=== PATIENT | male | born 1950 | race Caucasian/White ===

== ENCOUNTER → 2016-08-31 | Outpatient (CLI) | payer OTHER ==
[~2016-08-31] MED LIST: ASPI325T45 PO; CYCL10TA6 PO; IPRA1AER2 INH; LEVO112T2 PO; MBXC PO; MULT-506 PO; OXYC1CAP5 PO; OXYC20TA32 PO; OXYC20TA50 PO; PRLSR20 PO; QUET1TAB32 PO; SERT-234 PO; VNTHFA/IN INH; WHEATAB2 PO; ZNTT/150 PO; ZOLP10TA PO
--- NOTE | 2016-08-31 10:25 | DIAGNOSTIC IMAGING REPORT ---
CHEST 2 VIEWS ROUTINE CLINICAL HISTORY: Pulmonary nodule. Right upper lobectomy on June 25, 2016. COMPARISON STUDY: PET/CT June 08, 2016 and chest radiograph July 14, 2016. FINDINGS: An anterior cervical spine fusion is partially imaged. Cardiac size is normal. Mediastinal contours are normal. There are postsurgical findings within the right hemithorax. No pneumothorax is present. There may be a small right pleural effusion. There is no evidence of pulmonary edema. Mild bibasilar opacities favor atelectasis. A density overlying the right midlung and a rib is likely due to summation artifact. IMPRESSION: 1. No pneumothorax. 2. Possible trace right pleural effusion. Electronically signed by: Anthony Scales M.D. 08/31/2016 10:23 AM Dictated Date/Time: 08/31/2016 10:20 AM
== END | disposition home or self-care (01) ==
LOC: C.RAD1850 09:40
PROVIDERS: ATTEND Surgery
DX: R91.1 Solitary pulmonary nodule (principal)

== ENCOUNTER → 2016-11-02 | Outpatient (CLI) | payer OTHER ==
[~2016-11-02] MED LIST changes: +MIRT15TA53 PO
--- NOTE | 2016-11-02 13:01 | DIAGNOSTIC IMAGING REPORT ---
PET/CT SKULL-THIGH CLINICAL HISTORY: Head and neck cancer COMPARISON STUDY: PET/CT dated 06/08/2016 FINDINGS: The patient was injected with 12.6 mCi of F 18 labeled FDG. Findings standard induction phase, PET/CT scanning is performed from the skull base the upper thigh region. Activity within the neck is felt to be physiologic. There are postsurgical changes of a right upper lobectomy. There is a mildly FDG avid right hilar lymph node with SUV maximum of 3.7. There is a mildly FDG avid 7 mm right upper lobe opacity with SUV maximum of 2.1. The previously identified FDG avid right upper lobe pulmonary nodule is no longer visualized. There are nonspecific subcentimeter lingular nodules which are minimally FDG avid with SUV maximum measuring up to 1.8. There is an 8 mm right lower lobe pulmonary nodule with mild increased FDG activity with SUV maximum of 3.2. A small right pleural effusion. Within the abdomen, there is no FDG avid hepatic or adrenal lesions. There is no FDG avid adenopathy. There is physiologic urinary tract and bowel activity. There are scattered areas of muscular activity. There are no areas of bony activity to indicate skeletal metastasis. IMPRESSION: 1. Interval resection of the right upper lobe pulmonary mass 2. Small right pleural effusion 3. Mildly FDG avid right hilar lymph node 4. Scattered mildly FDG avid bilateral pulmonary nodules. Short-term follow-up study is recommended to differentiate an inflammatory from neoplastic etiology Electronically signed by: Gentry Tsang M.D. 11/02/2016 1:00 PM Dictated Date/Time: 11/02/2016 12:48 PM
== END | disposition home or self-care (01) ==
LOC: C.PET 08:34
PROVIDERS: ATTEND Family Medicine
DX: C76.0 Malignant neoplasm of head, face and neck (principal); R91.8 Other nonspecific abnormal finding of lung field; J90 Pleural effusion, not elsewhere classified

== ENCOUNTER → 2016-12-28 | Outpatient (CLI) | payer OTHER ==
[~2016-12-28] MED LIST changes: +AZIT-57 PO; +CEFU1TAB36 PO; +LEVA1.258 INH; +LEVO125T5 PO; +NAPR1TAB9 PO; +NEBMAC; +NRN100 PO; +OPTIRAY 320 IV PRN; +PRED10TA PO
--- NOTE | 2016-12-28 08:17 | DIAGNOSTIC IMAGING REPORT ---
CT SCAN OF THE NECK WITH IV CONTRAST CLINICAL HISTORY: Lung cancer. History of laryngeal cancer. COMPARISON STUDY: CT scan of the neck dated 11/14/2009. PET CT dated 11/02/2016. TECHNIQUE: Following the IV administration of 91 cc of Optiray 320, CT scan of the soft tissues of the neck was performed from the skull base to the upper chest. Images are reviewed in the axial, sagittal, and coronal planes. IV contrast was administered without complication. CT DOSE: 745.43 mGy.cm FINDINGS: Pharynx: The nasopharynx, oropharynx, and laryngeal pharynx are normal in appearance. The pharyngeal airway is widely patent. There is no evidence of mass lesion. The vocal cords appear symmetric. The parapharyngeal fat is well maintained. The prevertebral/retropharyngeal soft tissues are within normal limits. The epiglottis is normal. Lymphadenopathy: No cervical lymphadenopathy is seen Thyroid: Mildly atrophic and grossly unremarkable. Salivary glands: The parotid and submandibular glands are within normal limits. Brain parenchyma: The visualized brain parenchyma at the skull base is normal in appearance. Vascular structures: There is approximately 50% stenosis of the proximal right internal carotid artery secondary to calcified and soft plaque. The carotid arteries are otherwise patent bilaterally. The jugular veins are clear. Skeletal structures: The skeletal structures are osteopenic. No lytic or blastic lesions are identified. Imaged portions of the calvarium at the skull base appear intact. There is moderate to advanced multilevel cervical spondylosis with evidence of corpectomy at C4 an anterior fusion from C3-C7. Sinuses and mastoids: There is moderate mucosal thickening within the left anterior ethmoid and left frontal sinuses. The remaining paranasal sinuses are clear. The mastoid air cells are well pneumatized. Orbits: The bony orbits are intact. Orbital contents are normal in appearance. Lung apices: Advanced emphysema is present at the lung apices. Scarring is noted at the right apex. IMPRESSION: 1. There is no evidence of recurrent or metastatic disease in the neck. 2. Advanced emphysema. 3. There is approximately 50% stenosis in the proximal right internal carotid artery. Electronically signed by: Alex Taylor M.D. 12/28/2016 8:16 AM Dictated Date/Time: 12/28/2016 8:03 AM
--- NOTE | 2016-12-28 08:25 | DIAGNOSTIC IMAGING REPORT ---
CT OF THE CHEST WITH IV CONTRAST CLINICAL HISTORY: Lung cancer. Head and neck cancer. COMPARISON STUDY: PET/CT November 02, [address] June 01, 2016 per TECHNIQUE: Following IV administration of 91 mL of Optiray-320, helical axial images of the chest were obtained. Images were viewed in the axial, sagittal and coronal planes. IV contrast was administered without complication. FINDINGS: The neck CT will be reported separately. This exam is compromised by respiratory motion artifact. The size of the heart is at the upper limits of normal. There are postsurgical findings consistent with a right upper lobectomy. A prominent high right paratracheal lymph node shown on image 72 of 341 is unchanged since PET/CT of November 02, 2016. This measures 1 x 0.8 cm. A small right pleural effusion is unchanged since prior PET/CT. There are multiple ill-defined pulmonary nodule throughout the lungs. Overall, there has been improvement since exam of November 02, 2016 but several airspace opacities have developed including nodular right lower lobe airspace opacity. A 1.2 cm left lower lobe nodule shown on image 206 of 341 is unchanged. This is suboptimally assessed due to respiratory motion. There is no pneumothorax. No suspicious osseous lesions are present. The upper abdomen is unremarkable. IMPRESSION: 1. Scattered bilateral pulmonary nodules. Overall, improvement since exam of November 02, 2016 has a few new small airspace opacities. The lungs are suboptimally assessed due to respiratory motion but favor an infectious/inflammatory process. A neoplastic etiology is considered less likely but a follow-up chest CT in 2 months is recommended. 2. No change in a trace right pleural effusion. 3. Stable prominent right paratracheal lymph node which can be assessed on subsequent exams. 4. No change in the indeterminate 1.2 cm left lower lobe nodule. Electronically signed by: Anthony Scales M.D. 12/28/2016 8:24 AM Dictated Date/Time: 12/28/2016 7:40 AM
== END | disposition home or self-care (01) ==
LOC: C.CTS 06:43
PROVIDERS: ATTEND Internal Medicine Hematology & Oncology
DX: C34.90 Malignant neoplasm of unspecified part of unspecified bronchus or lung (principal); J43.9 Emphysema, unspecified; I65.21 Occlusion and stenosis of right carotid artery; C32.9 Malignant neoplasm of larynx, unspecified; R91.1 Solitary pulmonary nodule

== ENCOUNTER 2017-02-24 05:12 | Day surgery (SDC) | payer OTHER ==
[2017-02-19 08:13] VITALS: BMI 25.0
--- NOTE | 2017-02-19 09:01 | PAT Medication Instructions ---
Service Date Feb 19, 2017. Current Home Medication List Aspirin (Aspirin), 650 MG PO QAM Cyclobenzaprine Hcl (Flexeril), 10-20 MG PO TID PRN for Muscle Spasm Ipratropium-Albuterol (Combivent Respimat), 1 PUFFS INH QID Levothyroxine Sodium (Synthroid), 125 MCG PO QAM Multivitamin (Multivitamin), 1 TAB PO QAM Omeprazole (Prilosec), 20 MG PO QDD Oxycodone Hcl (Oxycodone Hcl), 10 MG PO Q8 PRN for PRN Oxycodone Hcl (Oxycontin), 2 TAB PO TID Ranitidine (Zantac), 150 MG PO BID Sertraline (Zoloft), 100 MG PO BID Wheat Dextrin (Benefiber), 1 TSP PO BID PRN for Constipation Zolpidem Tartrate (Ambien), 10 MG PO HS Medication Instructions For Your Scheduled Surgery - Check with surgeon for instructions: Aspirin (Aspirin), 650 MG PO QAM - Hold the following medications the morning of surgery: Wheat Dextrin (Benefiber), 1 TSP PO BID PRN for Constipation Ranitidine (Zantac), 150 MG PO BID Multivitamin (Multivitamin), 1 TAB PO QAM Cyclobenzaprine Hcl (Flexeril), 10-20 MG PO TID PRN for Muscle Spasm - Take the following medications the morning of surgery with a sip of water: Sertraline (Zoloft), 100 MG PO BID Oxycodone Hcl (Oxycodone Hcl), 10 MG PO Q8 PRN for PRN (okay to take up to 4 hours prior to surgery if needed) Oxycodone Hcl (Oxycontin), 2 TAB PO TID (okay to take up to 4 hours prior to surgery if needed) Omeprazole (Prilosec), 20 MG PO QDD Ipratropium-Albuterol (Combivent Respimat), 1 PUFFS INH QID Levothyroxine Sodium (Synthroid), 125 MCG PO QAM - Take the following medications as scheduled the night before surgery: Zolpidem Tartrate (Ambien), 10 MG PO HS Wheat Dextrin (Benefiber), 1 TSP PO BID PRN for Constipation (if needed) Ranitidine (Zantac), 150 MG PO BID Oxycodone Hcl (Oxycodone Hcl), 10 MG PO Q8 PRN for PRN (if needed) Oxycodone Hcl (Oxycontin), 2 TAB PO TID Ipratropium-Albuterol (Combivent Respimat), 1 PUFFS INH QID Cyclobenzaprine Hcl (Flexeril), 10-20 MG PO TID PRN for Muscle Spasm (if needed ) If you have any questions please call us at [phone] or [phone] or [phone]
[2017-02-19 09:59] LABS: BASO % 0.9 %; BASO ABS # 0.05 K/uL (0-0.2); COMPLETE YES; EOS % 4.7 %; HEMATOCRIT 40.4 % (42-52); IG% 0.2 %; LYMPH % 25.8 %; LYMPH ABS # 1.37 K/uL (1.2-3.4); MEAN CELL VOLUME 82.8 fL (80-100); MEAN CORPUSCULAR HEMOGLOBIN 27.3 pg (25-34); MEAN CORPUSCULAR HGB CONC 32.9 g/dl (32-36); MEAN PLATELET VOLUME 8.9 fL (7.4-10.4); MONO % 8.5 %; NEUT % 59.9 %; PLATELET COUNT 252 K/uL (130-400); RED BLOOD COUNT 4.88 M/uL (4.7-6.1); WHITE BLOOD COUNT 5.32 K/uL (4.8-10.8)
[2017-02-19 11:03] LABS: BUN/CREATININE RATIO 15.4 (10-20); CALCIUM 9.3 mg/dl (8.5-10.1); CREATININE 0.74 mg/dl (0.60-1.40); POTASSIUM 4.2 mmol/L (3.5-5.1)
[~2017-02-24] VITALS: Ht 180.3 cm; Wt 83.7 kg
[~2017-02-24 05:12] MED LIST changes: -AZIT-57 PO; -CEFU1TAB36 PO; -LEVA1.258 INH; -LEVO125T5 PO; -MBXC PO; -MIRT15TA53 PO; -NAPR1TAB9 PO; -NEBMAC; -NRN100 PO; -OPTIRAY 320 IV PRN; -OXYC20TA32 PO; -PRED10TA PO; -QUET1TAB32 PO; -VNTHFA/IN INH
[2017-02-24 05:42] VITALS: BP 176/81; PULSE 105; TEMP 36.7; O2SAT 93; Ht 180.3 cm; Wt 83.7 kg
[2017-02-24] MEDS ORDERED: SUCCINYLCHOLINE 100MG/5ML SYR IV ONE (06:24)
[2017-02-24] MEDS ORDERED: LARYING-O-JET KIT (LTA) ONE ×2 (06:24)
[2017-02-24] MEDS ORDERED: ONDANSETRON INJ 2 MG/ML 2 ML VIAL ONE (06:24)
[2017-02-24] MEDS ORDERED: FENTANYL CITRATE INJ 50 MCG/1 ML 2 ML VIAL ONE (06:24)
[2017-02-24] MEDS ORDERED: LIDOCAINE HCL 2% 2 ML VIAL (20MG/ML) ONE (06:24)
[2017-02-24] MEDS ORDERED: ROCURONIUM BROMIDE 10 MG/ML 5 ML VIAL ONE (06:24)
[2017-02-24] MEDS ORDERED: DEXAMETHASONE SOD INJ 4 MG/ML VIAL ONE (06:24)
[2017-02-24] MEDS ORDERED: MIDAZOLAM HCL 1 MG/ML 2ML VIAL ONE (06:24)
[2017-02-24] MEDS ORDERED: PROPOFOL IV EMULSION 10 MG/ML 20 ML VIAL IV ONE (06:24)
--- NOTE | 2017-02-24 06:36 | History and Physical ---
History & Physical Date Feb 24, 2017. 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 Past Medical/Surgical History Medical Problems: (1) Cancer of supraglottis (2) Cervical stenosis of spinal canal (3) Chronic back pain (4) CORONARY ATHEROSCLEROSIS OF [place] CORONARY VESSEL (5) DEPRESSIVE DISORDER NEC (6) FAMILY HISTORY OF OTHER CARDIOVASCULAR DISEASES (7) FAMILY HX-MALIGNANCY NOS (8) Fever (9) HYPERTENSION NOS (10) Lung nodule (11) MALIG ANKIT SUPRAGLOTTIS (12) TOBACCO USE DISORDER PSH: S/P DL W/ BX, S/P ACDF, S/P BRONCH W/ BX Additional History Hepatic Disease: No Endocrine Disorder: No Kidney Disease: No Hypertension: No Heart Disease: No Bleeding Tendencies: No Infectious Diseases: No Allergies Coded Allergies: NSAIDs (Verified Adverse Reaction, Unknown, upset stomach, 02/24/17) Home Medications Scheduled Aspirin (Aspirin), 650 MG PO QAM Ipratropium-Albuterol (Combivent Respimat), 1 PUFFS INH QID Levothyroxine Sodium (Synthroid), 125 MCG PO QAM Multivitamin (Multivitamin), 1 TAB PO QAM Omeprazole (Prilosec), 20 MG PO DAILY Oxycodone Hcl (Oxycontin), 2 TAB PO TID Ranitidine (Zantac), 150 MG PO BID Sertraline (Zoloft), 100 MG PO BID Zolpidem Tartrate (Ambien), 10 MG PO HS Scheduled PRN Cyclobenzaprine Hcl (Flexeril), 10-20 MG PO TID PRN for Muscle Spasm Oxycodone Hcl (Oxycodone Hcl), 10 MG PO Q8 PRN for PRN Wheat Dextrin (Benefiber), 1 TSP PO BID PRN for Constipation Physical Examination Skin: warm/dry, no rash Eyes: normal inspection, EOMI, sclerae normal ENT: + pertinent finding (MILD HOARSENESS; SUBTLE FULLNESS OF R ARYTENOID AND A -E FOLD WITH DECREASED R TVF MOBILITY) Head: normocephalic, atraumatic Neck: + pertinent finding (POST-XRT FIBROTIC CHANGES; NO PAVITHRA) Respiratory/Chest: lungs clear, normal breath sounds, no respiratory distress Cardiovascular: regular rate, rhythm, no edema, no murmur Neurologic/Psych: no motor/sensory deficits, alert, normal reflexes, oriented x 3 Diagnosis H/O T2N2M0 SCC R SUPRAGLOTTIC LARYNX WITH INCREASING R-SIDED SORE THROAT AND ABNORMAL PET/CT SCAN Plan of Treatment DML W/ BX
[2017-02-24] MEDS ORDERED: EpINEphrine HCL INJ 1 MG/ML 5ML SYRINGE ONE (07:30)
[2017-02-24] MEDS ORDERED: EpINEphrine INJ 1MG/ML AMP 1 MG/ML AMP ONE (07:34)
--- NOTE | 2017-02-24 07:39 | Discharge Instructions ---
Discharge Instructions Date of Service Feb 24, 2017. Admission Reason for Admission: Malignant Neplasm of Supraglottis Discharge Discharge Diagnosis / Problem: same Discharge Goals Goal(s): Diagnostic testing, Therapeutic intervention Activity Recommendations Activity Limitations: as noted below NO DRIVING WHILE ON [place]; LIGHT ACTIVITY FOR 1-2 DAYS . Current Hospital Diet Patient's current hospital diet: Discharge Diet Recommended Diet: Regular Diet Pending Studies Studies pending at discharge: no Medical Emergencies . Who to Call and When: Medical Emergencies: If at any time you feel your situation is an emergency, please call 911 immediately. . Non-Emergent Contact Non-Emergency issues call your: Surgeon . . "Provider Documentation" section prepared by Obed Sequeira. . VTE Core Measure Inpt VTE Proph given/why not?: SCD's
[2017-02-24] MEDS ORDERED: HYDROCODONE/ACETAMOPHEN 5/325MG TAB PO PRN (07:45)
--- NOTE | 2017-02-24 08:01 | [facility] Operative Report ---
Operative Report Operative Date Feb 24, 2017. Pre-Operative Diagnosis History of malignant neoplasm of supraglottis Post-Operative Diagnosis History of malignant neoplasm of supraglottis Procedure(s) Performed Direct Microlaryngoscopy with Biopsy Surgeon Dr. Obed Sequeira Hose Operator Surgeon(s) Diane Gordillo PA-C Estimated Blood Loss 5ml Findings Edematous right arytenoid, right aryepiglottic fold, and postcricoid mucosa without definitive mass or lesion Specimens A. Post Cricoid Mucosa B. Right Arytenoid Mucosa C. Right Aryepiglottic Mucosa Anesthesia Gen. endotracheal Complication(s) None Indications The patient is a 66-year-old male with a history of T2 N2 M0 squamous cell carcinoma of the right supraglottic larynx status post primary chemotherapy and radiation therapy completed in 2009 who recently was diagnosed with lung cancer and has had progressive increased FDG activity on PET/CT scans involving the right supraglottis and postcricoid region. In addition he has symptoms of increasing right-sided sore throat, mild dysphagia, intermittent hoarseness, and intermittent hemoptysis. Serial laryngoscopies showed some subtle changes in that he has increased edema of the right arytenoid, aryepiglottic fold, and postcricoid mucosa with decreased mobility of his right true vocal fold compared to previous examinations without definitive mass or lesion. It was recommended that he undergo direct microlaryngoscopy with biopsies and this was originally scheduled on January 27. However, the patient the procedure due to undergoing radiation for his lung cancer and now this is rescheduled urgently upon the request of his medical oncologist due to his progressive symptomatology. Description of Procedure After informed consent had been obtained from the patient, the patient was wheeled to the operating room and placed on the operating table in the supine position. Monitors were placed and after the induction of general endotracheal anesthesia, the table was turned 90 and the patient was placed in the sniffing position. A moistened Ray-Colleen sponge was placed over the edentulous maxillary alveolus and the operating microscope was inserted and used to inspect the oral cavity, oropharynx, hypopharynx, and larynx. The intraoperative findings were of edema of the right arytenoid, right aryepiglottic fold, and postcricoid mucosa. Cup forceps were used to perform biopsies of all these areas and these were sent off for permanent pathological assessment. These areas were suctioned. There were no other concerning places including the right piriform sinus, upper esophageal mucosa, or adjacent sites. An orogastric tube was placed and the stomach was suctioned free of air and stomach contents. This marked the end of the case. The patient tolerated the procedure well there no complications. All the instrumentation and Ray-Colleen sponge were removed from the patient. The patient was extubated and transferred to the recovery room in stable condition. I attest to the content of the Intraoperative Record and any orders documented therein. Any exceptions are noted below.
[2017-02-24] MEDS ORDERED: FENTANYL CITRATE INJ 50 MCG/1 ML 2 ML VIAL IV PRN (08:15)
[2017-02-24] MEDS ORDERED: ONDANSETRON INJ 2 MG/ML 2 ML VIAL IV PRN (08:15)
[2017-02-24] MEDS ORDERED: EpHEDrine SULFATE INJ 50 MG/ML AMP IV PRN (08:15)
[2017-02-24] MEDS ORDERED: PROMETHAZINE HCL INJ 6.25 MG in SODIUM CHLORIDE 0.9% 50ML 50 ML IV PRN (08:15)
[2017-02-24] MEDS ORDERED: ATROPINE SULFATE 0.1 MG/ML 5ML SYR IV PRN (08:15)
--- NOTE | 2017-02-24 08:40 | Anesthesiology Progress Note ---
Anesthesia Post Op Note Date & Time Feb 24, 2017 at 08:40 Vital Signs Pain Intensity: 0 Vital Signs Past 12 Hours Date Time Temp Pulse Resp B/P (MAP) Pulse Ox O2 Delivery O2 Flow Rate FiO2 02/24/17 08:35 92 18 133/83 94 Room Air 02/24/17 08:25 36.6 92 22 146/88 93 Room Air 02/24/17 08:15 92 24 140/95 94 Room Air 02/24/17 08:05 93 14 147/97 100 Oxymask 6 02/24/17 07:55 95 12 166/108 100 Oxymask 10 02/24/17 07:47 36.0 94 18 161/90 100 Oxymask 10 02/24/17 05:42 36.7 105 20 176/81 (112) 93 Room Air Notes Mental Status: alert / awake / arousable, participated in evaluation Pt Amnestic to Procedure: Yes Nausea / Vomiting: adequately controlled Pain: adequately controlled Airway Patency, RR, SpO2: stable & adequate BP & HR: stable & adequate Hydration State: stable & adequate Anesthetic Complications: no major complications apparent
[2017-02-24 08:45] VITALS: BP 157/77; PULSE 89; TEMP 36.7; O2SAT 92
[2017-02-24 09:15] VITALS: BP 147/87; PULSE 93; O2SAT 93
[2017-02-24 09:45] VITALS: BP 160/90; PULSE 95; TEMP 36.6; O2SAT 92
[2017-02-25] MEDS ORDERED: LACTATED RINGER'S 1000ML 1,000 ML IV SCH (06:00)
[2017-05-13] MEDS ORDERED: MIRT15TA53 PO (15:39)
== END 2017-02-24 09:50 | disposition home or self-care (01) ==
LOC: C.ACU 05:12
DX: J02.9 Acute pharyngitis, unspecified (principal); C34.90 Malignant neoplasm of unspecified part of unspecified bronchus or lung; Z85.00 Personal history of malignant neoplasm of unspecified digestive organ; I25.10 Atherosclerotic heart disease of native coronary artery without angina pectoris; F32.9 Major depressive disorder, single episode, unspecified; Z82.49 Family history of ischemic heart disease and other diseases of the circulatory system; I10 Essential (primary) hypertension; F17.200 Nicotine dependence, unspecified, uncomplicated; E03.9 Hypothyroidism, unspecified; M06.9 Rheumatoid arthritis, unspecified; K21.9 Gastro-esophageal reflux disease without esophagitis; J44.9 Chronic obstructive pulmonary disease, unspecified; M19.90 Unspecified osteoarthritis, unspecified site; F41.9 Anxiety disorder, unspecified; Z90.89 Acquired absence of other organs; Z92.21 Personal history of antineoplastic chemotherapy; Z92.3 Personal history of irradiation

== ENCOUNTER → 2017-03-17 | Outpatient (CLI) | payer OTHER ==
[~2017-03-17] MED LIST changes: +MIRT15TA53 PO
[2017-03-17 13:27] VITALS: BP 156/81; PULSE 100; TEMP 36.8; O2SAT 90
--- NOTE | 2017-03-17 16:59 | Radiation Oncology Follow-Up ---
Radiation Oncology Follow-Up Date of Visit Mar 17, 2017. 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 Radiation completed 02/28/2010 received 7200 cGy Finding of asymmetry of larynx on the right. Plan for laryngoscopy and biopsy Status post laryngoscopy and biopsy 02/24/2017, benign Last Edited By: Sirisha You on Mar 17, 2017 16:52 (2) Lung cancer Status: Acute Stage: l Permanent Comment: Status post bronchoscopy and biopsy 06/03/2016 right upper lobectomy and lymph node dissection 06/25/2016 Squamous cell carcinoma Stage pT1b pN0M0 Development of a left lower lobe pulmonary nodule Status post bronchoscopy and biopsy pathology nondiagnostic 06/25/2016 Status post SBRT completed 02/05/2017. 5 fractions were given for a total of 5000 cGy. Last Edited By: Sirisha You on Feb 18, 2017 10:09 History of Present Illness Mr. Boss is a 66-year-old male who is well known to us. He was initially seen by me in referral on 12/26/2009. At that time he was a 59-year-old male with a long history of cigarette smoking and alcohol use. He had smoked 2 packs a day for most of his adult life. The noted at that time right-sided sore throat an otalgia that it been present since August. It was treated with antibiotics without improvement. He was seen by ENT and examination revealed a lesion on the right false cord. A direct laryngoscopy and biopsy confirmed an endophytic tumor involving the right false vocal cord which approach the anterior commissure. The inferior edge of the tumor seemed to be extending to the ventricle and posteriorly the tumor extended towards the vocal process of the arytenoid. There was no involvement of the piriform sinus. Biopsy confirmed squamous cell carcinoma moderately differentiated. Accession #[id number]. A staging workup with CT scan of the soft tissue of the neck and PET scan showed hypermetabolic activity along the anterior aspect of the right vocal cord extending into the right super glottic region. There was a borderline enlarged mildly FDG avid lymph node in the adjacent right neck. 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 Patient was treated with PEG tube for prophylactic feeding. Patient ultimately was treated with definitive combined chemoradiation. The radiation consisted of IMRT and started on 01/13/2010 and completed on 2009. He received a total of 34 fractions and a total dose of 72 Gy. The patient had the expected sequelae with initial loss of taste swallowing changes and decreased saliva. Ultimately and gradually his taste returned to normal. His dry mouth improved as did his swallowing. The patient has been followed and has not shown evidence of recurrence. A restaging PET/CT scan from 2013 showed asymmetric metabolic uptake at the level of the larynx consistent with his history of treatment. There were no pathologic lymph nodes in the neck or chest and no evidence of recurrence. In December 2015 the patient noted the onset of some weakness of the left arm. He was evaluated by Dr. Clay and was found to have cervical spondylolysis. On Dr. Clay performed an anterior corpectomy and ACDF. The patient tolerated the procedure well. Ultimately the left arm movement and strength returned to normal. However patient developed some low right neck discomfort which was at the site of the surgical procedure. He again developed some difficulty swallowing which over time has resolved. He did have episodes of hemoptysis and increasing hoarseness. These have also improved over time. A CT angiogram was performed on 01/10/2016. No emboli were identified. However there was an indeterminate 1.4 cm right upper lobe pulmonary nodule. 81.0 x 0.3 cm tubular opacity was noted in the right upper lobe and a 6 mm left lower lobe pulmonary nodule was appreciated. Following guidelines for pulmonary nodules a CT of the chest was performed on 04/20/[address] without contrast was performed in anticipation of a navigational bronchoscopy on 06/01/2016. This showed an increase in the size of a lobulated spiculated mass within the right upper lobe presently measuring 3.2 x 2.0 cm. This is felt to be consistent with a primary bronchogenic malignancy. A stable 1.2 cm left lower lobe nodule abutting the major fissure was appreciated. Despite the fact that this remains stable in size a secondary bronchogenic malignancy remained the diagnosis of exclusion. A 3 mm nodule was seen in the lingula too small to characterize. Dr. Hayes performed a navigational bronchoscopy with biopsy of the left lower lobe and right upper lobe masses using the super dimensional electromagnetic navigational bronchoscopy system on 06/03/2016. Bronchial brushings of the left lower lobe showed no malignant cells. Case: [id number]. Bronchial brushings from the right upper lobe were positive for malignant cells consistent with non-small cell carcinoma. Case: [id number]. Transbronchial aspirate of the right upper lobe was positive for malignant cells consistent with a non-small cell carcinoma. Case: [id number]. Right upper lobe bronchial washings were negative. On 06/25/2016 the patient underwent navigational bronchoscopy with biopsy of the left lower lobe mass followed by a thoracoscopic right upper lobectomy and mediastinal lymphadenectomy. The left lower lobe biopsy was benign. The right upper lumpectomy confirmed a poorly differentiated carcinoma with squamous differentiation and apparent focal glandular (adenocarcinoma) differentiation. This was a poorly differentiated grade 3 of 4. There was no visceral pleural invasion identified and the margins were negative. The lesion measured 2.5 cm with the closest margin the bronchial/vascular/parenchymal at 5.5 cm. No lymphovascular invasion was seen. 12 mediastinal nodes worse sampled and all 12 were negative. The final pathologic stage was a pT1b pN0. Case: [id number]. The left lower lobe transbronchial biopsy was positive for malignant cells consistent with a non-small cell carcinoma. Case: [id number]. With these findings no adjuvant therapy was required. At this time patient continued to be followed by Dr. Chano Saldana, Dr. Pritesh Hayes and Dr. Obed Gaytan. On 11/02/2016 patient underwent a repeat PET/ CT scan. The activity in the neck was felt to be physiologic. There were postsurgical changes in the right upper lobectomy. There was mildly FDG avid right hilar lymph node with SUV max of 3.7 and a mildly FDG avid 7 mm right upper lobe opacity with an SUV max of 2.1. The previously identified FDG avid right upper lobe pulmonary nodule was no longer visualized. There was nonspecific subcentimeter lingular nodules which are minimally FDG avid with SUV max measuring up to 1.8. There was an 8 mm right lower lobe pulmonary nodule with mild increased FDG activity and an SUV max of 3.2. A CT scan of the chest on 12/28/2016 with IV contrast was performed. This again showed postsurgical findings of a right upper lobectomy. A prominent high right paratracheal lymph node was unchanged since PET/CT of 11/02/2016 measuring 1.0 x 0.8 cm. A small right pleural effusion was also unchanged. Multiple ill- defined pulmonary nodules are seen throughout the lungs. Overall there had been improvement compared to the study of 11/02/2016. A 1.2 cm left lower lobe nodule also seen previously was unchanged. A CT of the soft tissue of the neck was also performed on this date. The nasopharynx, oropharynx and laryngeal parents are normal in appearance. The pharyngeal airway was widely patent. There was no evidence of mass lesion identified. There was no cervical lymphadenopathy seen. There was a proximate 50% stenosis of the proximal right internal carotid artery secondary to calcified and soft plaque. The carotid arteries are otherwise patent bilaterally. There was no lytic or blastic lesions identified. There was evidence of the corpectomy at C4 an anterior fusion from C3 to C7. Continued follow-up and examination by Dr. Obed Sequeira revealed some subtle changes on his laryngoscopic examination which showed more fullness in the right arytenoid and area epiglottic fold region. Also noted was decreased mobility of his right true vocal cord compared with previous examinations. The patient is also complaining of some persistent but intermittent right neck discomfort and persistent hoarseness. It is unclear whether these changes were related to his recent ACDF surgery but it is felt that it would be important to rule out recurrent malignancy although this is felt to be less likely. The patient is scheduled for an endoscopic evaluation and biopsy on 01/27/2017. We were asked to see this patient by Dr. Saldana to evaluate the potential for stereotactic treatment of the left lower lobe nodule. Stereotactic treatment was given and was completed 02/05/2017. He received 5 fractions for a total of 5000 cGy. Interim History He is been doing well over this past month. He denies any change in respiratory status. He did not develop any irritation of the skin of the anterior posterior chest. He had no difficulty with swallowing. He did undergo the planned biopsy on 02/24/2017. This was for asymmetry of the liver next. Procedure was performed by Dr. Sequeira. Biopsies were taken which showed benign squamous epithelium with reactive atypia. Specimen [id number]. He is followed in medical oncology by Dr. Saldana. Allergies Coded Allergies: NSAIDs (Verified Adverse Reaction, Unknown, upset stomach, 02/24/17) Home Medications Scheduled Ipratropium-Albuterol (Combivent Respimat), 1 PUFFS INH QID Levothyroxine Sodium (Synthroid), 125 MCG PO QAM Multivitamin (Multivitamin), 1 TAB PO QAM Omeprazole (Prilosec), 20 MG PO DAILY Oxycodone Hcl (Oxycodone Hcl), 10 MG PO TID Oxycodone Hcl (Oxycontin), 2 TAB PO TID Ranitidine (Zantac), 150 MG PO BID Sertraline (Zoloft), 100 MG PO BID Zolpidem Tartrate (Ambien), 10 MG PO HS Scheduled PRN Aspirin (Aspirin), 650 MG PO QAM PRN for Headache Cyclobenzaprine Hcl (Flexeril), 10-20 MG PO TID PRN for Muscle Spasm Wheat Dextrin (Benefiber), 1 TSP PO BID PRN for Constipation Review of Systems Gastrointestinal: Symptoms: WNL, Constipation GI Comments: Nausea in AM, Chronic Constipation - Benefiber BID Oral: Symptoms: No Problems, Scant Saliva/Dry Mouth Other Oral Symptoms: Food gets stuck in throat - seems better - slight hemoptysis Respiratory: Symptoms: WNL, Moist Cough Sputum Character: Productive cough better than it used to be Other Respiratory: Moist cough productive of times - thick white/alanis/blood tinged Urinary: Symptoms: WNL Skin: Symptoms: No Problems Physical Exam Vital Signs Date Time Temp Pulse Resp B/P (MAP) Pulse Ox O2 Delivery O2 Flow Rate FiO2 03/17/17 13:27 36.8 100 20 156/81 90 Fatigue: None General Appearance: no apparent distress Eyes: normal inspection, EOMI ENT: normal ENT inspection, hearing grossly normal Neck: no adenopathy, thyroid normal Respiratory/Chest: lungs clear, no respiratory distress, no accessory muscle use Cardiovascular: regular rate, rhythm, no gallop, no murmur Extremities: no pedal edema Neurologic/Psychiatric: no motor/sensory deficits, alert, normal mood/affect Skin: warm/dry Laboratory Studies Test 02/19/17 09:06 White Blood Count 5.32 K/uL (4.8-10.8) Red Blood Count 4.88 M/uL (4.7-6.1) Hemoglobin 13.3 g/dL (14.0-18.0) Hematocrit 40.4 % (42-52) Mean Corpuscular Volume 82.8 fL (80-100) Mean Corpuscular Hemoglobin 27.3 pg (25-34) Mean Corpuscular Hemoglobin Concent 32.9 g/dl (32-36) Platelet Count 252 K/uL (130-400) Mean Platelet Volume 8.9 fL (7.4-10.4) Neutrophils (%) (Auto) 59.9 % Lymphocytes (%) (Auto) 25.8 % Monocytes (%) (Auto) 8.5 % Eosinophils (%) (Auto) 4.7 % Basophils (%) (Auto) 0.9 % Neutrophils # (Auto) 3.19 K/uL (1.4-6.5) Lymphocytes # (Auto) 1.37 K/uL (1.2-3.4) Monocytes # (Auto) 0.45 K/uL (0.11-0.59) Eosinophils # (Auto) 0.25 K/uL (0-0.5) Basophils # (Auto) 0.05 K/uL (0-0.2) RDW Standard Deviation 48.6 fL (36.4-46.3) RDW Coefficient of Variation 16.1 % (11.5-14.5) Immature Granulocyte % (Auto) 0.2 % Immature Granulocyte # (Auto) 0.01 K/uL (0.00-0.02) Sodium Level 137 mmol/L (136-145) Potassium Level 4.2 mmol/L (3.5-5.1) Chloride Level 101 mmol/L (98-107) Carbon Dioxide Level 27 mmol/L (21-32) Anion Gap 9.0 mmol/L (3-11) Blood Urea Nitrogen 11 mg/dl (7-18) Creatinine 0.74 mg/dl (0.60-1.40) Est Creatinine Clear Calc Drug Dose 107.4 ml/min Estimated GFR () 113.0 Estimated GFR (Non- 97.5 BUN/Creatinine Ratio 15.4 (10-20) Random Glucose 88 mg/dl (70-99) Calcium Level 9.3 mg/dl (8.5-10.1) Assessment & Plan Plan: His case was reviewed with Dr. Dougherty. Today we completed a cancer survivorship care plan. A copy of the document was given to the patient. Recommendation is for CT of the chest 3 months post radiation therapy. This will be arranged. He'll be contacted in regards to date and time. We will see him following the recheck CT. He currently did not have a follow-up appointment with Dr. Saldana. I've asked him to call Dr. Saldana's office and schedule an appointment. He may call our office if he has any questions or concerns in the interim. Total Time In Follow-Up I spent 20 minutes speaking to the patient and performing examination. I spent 20 minutes completing the survivorship document and completing this note. Copy To Chano Saldana MD; Chapito Milner,D.O.; Pritesh Hayes MD
== END | disposition home or self-care (01) ==
LOC: C.ONC 13:08
PROVIDERS: ATTEND Physician Assistant Medical
DX: Z08 Encounter for follow-up examination after completed treatment for malignant neoplasm (principal); Z92.3 Personal history of irradiation; Z85.89 Personal history of malignant neoplasm of other organs and systems

== ENCOUNTER → 2017-05-10 | Outpatient (CLI) | payer OTHER ==
[~2017-05-10] MED LIST changes: -MIRT15TA53 PO; +OPTIRAY 320 IV PRN
--- NOTE | 2017-05-10 09:38 | DIAGNOSTIC IMAGING REPORT ---
(CHEST) THORAX WITH CLINICAL HISTORY: 67 years-old Male presenting with LUNG CANCER. TECHNIQUE: Multidetector CT imaging of the chest was performed after the administration of intravenous contrast. IV contrast: 116 mL of Optiray 320. A dose lowering technique was used consistent with the principles of ALARA (as low as reasonably achievable). COMPARISON: 12/28/2016. CT DOSE (mGy.cm): The estimated cumulative dose is 390.66 mGy.cm. FINDINGS: Dark Room Attendant topogram: Unremarkable. On soft tissue windows, normal thyroid and thoracic inlet. Prominent right paratracheal lymph node unchanged. Mild atherosclerosis of aortic arch. The heart size. Coronary artery calcification. No pericardial or pleural effusion. Upper abdomen normal. On lung windows, evaluation degraded by respiratory motion. Postsurgical changes of right upper lobectomy. Architectural distortion and bandlike opacities in the right middle lobe consistent with scarring. Mild smooth interlobular septal thickening at the lung bases. Apical predominant emphysematous changes. Mild bronchial wall thickening. Interval resolution of previously noted peripheral peribronchovascular consolidation in the right lower lobe. Minimal residual dependent opacities in the right lower lobe likely atelectasis. Interval increase in dependent groundglass and some pleural nodularity in the left lower lobe. This extends into the superior segment (series 4 image 171). The fissural solid 1.2 cm nodule centrally in the left lower lobe is unchanged from prior (series 4 image 182). Previously noted 7 mm nodule in the lingula has resolved. Faint centrilobular groundglass opacities may be present in the lingula. No debris in the airways. On bone windows, partially visualized cervical fusion hardware. Degenerative changes of the spine and right acromioclavicular joint. IMPRESSION: 1. Interval resolution of peripheral peribronchovascular consolidation in the right lower lobe, consistent with resolved infectious/inflammatory process. 2. Interval increase in dependent groundglass and nodular opacities in the left lower lobe. This raises concern for aspiration and/or infection. 3. Stable appearance of the 1.2 cm solid nodule in the left lower lobe. No new nodule. 4. Emphysema and bronchial wall thickening. 5. Post surgical changes of right upper lobectomy. Electronically signed by: Francois Marin M.D. 05/10/2017 9:36 AM Dictated Date/Time: 05/10/2017 9:28 AM
== END | disposition home or self-care (01) ==
LOC: C.CTS 08:56
PROVIDERS: ATTEND Physician Assistant Medical
DX: C34.11 Malignant neoplasm of upper lobe, right bronchus or lung (principal)

== ENCOUNTER → 2017-05-13 | Outpatient (CLI) | payer OTHER ==
[~2017-05-13] MED LIST changes: +AZIT-57 PO; +CEFU1TAB36 PO; +LEVA1.258 INH; +LEVO125T5 PO; +MIRT15TA53 PO; +NAPR1TAB9 PO; +NEBMAC; +NRN100 PO; -OPTIRAY 320 IV PRN; +PRED10TA PO
[2017-05-13 15:19] VITALS: BP 104/70; PULSE 109; TEMP 37.2; O2SAT 90
--- NOTE | 2017-05-13 16:41 | Radiation Oncology Follow-Up ---
Radiation Oncology Follow-Up Date of Visit May 13, 2017. 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 Radiation completed 02/28/2010 received 7200 cGy Finding of asymmetry of larynx on the right. Plan for laryngoscopy and biopsy Status post laryngoscopy and biopsy 02/24/2017, benign Last Edited By: Sirisha You on Mar 17, 2017 16:52 (2) Lung cancer Status: Acute Stage: l Permanent Comment: Status post bronchoscopy and biopsy 06/03/2016 right upper lobectomy and lymph node dissection 06/25/2016 Squamous cell carcinoma Stage pT1b pN0M0 Development of a left lower lobe pulmonary nodule Status post bronchoscopy and biopsy pathology nondiagnostic 06/25/2016 Status post SBRT completed 02/05/2017. 5 fractions were given for a total of 5000 cGy. Last Edited By: Sirisha You on Feb 18, 2017 10:09 History of Present Illness Mr. Castro is a 66-year-old male who is well known to us. He was initially seen by me in referral on 12/26/2009. At that time he was a 59-year-old male with a long history of cigarette smoking and alcohol use. He had smoked 2 packs a day for most of his adult life. The noted at that time right-sided sore throat an otalgia that it been present since August. It was treated with antibiotics without improvement. He was seen by ENT and examination revealed a lesion on the right false cord. A direct laryngoscopy and biopsy confirmed an endophytic tumor involving the right false vocal cord which approach the anterior commissure. The inferior edge of the tumor seemed to be extending to the ventricle and posteriorly the tumor extended towards the vocal process of the arytenoid. There was no involvement of the piriform sinus. Biopsy confirmed squamous cell carcinoma moderately differentiated. Accession #[id number]. A staging workup with CT scan of the soft tissue of the neck and PET scan showed hypermetabolic activity along the anterior aspect of the right vocal cord extending into the right super glottic region. There was a borderline enlarged mildly FDG avid lymph node in the adjacent right neck. 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 Patient was treated with PEG tube for prophylactic feeding. Patient ultimately was treated with definitive combined chemoradiation. The radiation consisted of IMRT and started on 01/13/2010 and completed on 2009. He received a total of 34 fractions and a total dose of 72 Gy. The patient had the expected sequelae with initial loss of taste swallowing changes and decreased saliva. Ultimately and gradually his taste returned to normal. His dry mouth improved as did his swallowing. The patient has been followed and has not shown evidence of recurrence. A restaging PET/CT scan from 2013 showed asymmetric metabolic uptake at the level of the larynx consistent with his history of treatment. There were no pathologic lymph nodes in the neck or chest and no evidence of recurrence. In December 2015 the patient noted the onset of some weakness of the left arm. He was evaluated by Dr. Clay and was found to have cervical spondylolysis. On Dr. Clay performed an anterior corpectomy and ACDF. The patient tolerated the procedure well. Ultimately the left arm movement and strength returned to normal. However patient developed some low right neck discomfort which was at the site of the surgical procedure. He again developed some difficulty swallowing which over time has resolved. He did have episodes of hemoptysis and increasing hoarseness. These have also improved over time. A CT angiogram was performed on 01/10/2016. No emboli were identified. However there was an indeterminate 1.4 cm right upper lobe pulmonary nodule. 81.0 x 0.3 cm tubular opacity was noted in the right upper lobe and a 6 mm left lower lobe pulmonary nodule was appreciated. Following guidelines for pulmonary nodules a CT of the chest was performed on 04/20/[address] without contrast was performed in anticipation of a navigational bronchoscopy on 06/01/2016. This showed an increase in the size of a lobulated spiculated mass within the right upper lobe presently measuring 3.2 x 2.0 cm. This is felt to be consistent with a primary bronchogenic malignancy. A stable 1.2 cm left lower lobe nodule abutting the major fissure was appreciated. Despite the fact that this remains stable in size a secondary bronchogenic malignancy remained the diagnosis of exclusion. A 3 mm nodule was seen in the lingula too small to characterize. Dr. Hayes performed a navigational bronchoscopy with biopsy of the left lower lobe and right upper lobe masses using the super dimensional electromagnetic navigational bronchoscopy system on 06/03/2016. Bronchial brushings of the left lower lobe showed no malignant cells. Case: [id number]. Bronchial brushings from the right upper lobe were positive for malignant cells consistent with non-small cell carcinoma. Case: [id number]. Transbronchial aspirate of the right upper lobe was positive for malignant cells consistent with a non-small cell carcinoma. Case: [id number]. Right upper lobe bronchial washings were negative. On 06/25/2016 the patient underwent navigational bronchoscopy with biopsy of the left lower lobe mass followed by a thoracoscopic right upper lobectomy and mediastinal lymphadenectomy. The left lower lobe biopsy was benign. The right upper lumpectomy confirmed a poorly differentiated carcinoma with squamous differentiation and apparent focal glandular (adenocarcinoma) differentiation. This was a poorly differentiated grade 3 of 4. There was no visceral pleural invasion identified and the margins were negative. The lesion measured 2.5 cm with the closest margin the bronchial/vascular/parenchymal at 5.5 cm. No lymphovascular invasion was seen. 12 mediastinal nodes worse sampled and all 12 were negative. The final pathologic stage was a pT1b pN0. Case: [id number]. The left lower lobe transbronchial biopsy was positive for malignant cells consistent with a non-small cell carcinoma. Case: [id number]. With these findings no adjuvant therapy was required. At this time patient continued to be followed by Dr. Chano Saldana, Dr. Pritesh Hayes and Dr. Obed Gaytan. On 11/02/2016 patient underwent a repeat PET/ CT scan. The activity in the neck was felt to be physiologic. There were postsurgical changes in the right upper lobectomy. There was mildly FDG avid right hilar lymph node with SUV max of 3.7 and a mildly FDG avid 7 mm right upper lobe opacity with an SUV max of 2.1. The previously identified FDG avid right upper lobe pulmonary nodule was no longer visualized. There was nonspecific subcentimeter lingular nodules which are minimally FDG avid with SUV max measuring up to 1.8. There was an 8 mm right lower lobe pulmonary nodule with mild increased FDG activity and an SUV max of 3.2. A CT scan of the chest on 12/28/2016 with IV contrast was performed. This again showed postsurgical findings of a right upper lobectomy. A prominent high right paratracheal lymph node was unchanged since PET/CT of 11/02/2016 measuring 1.0 x 0.8 cm. A small right pleural effusion was also unchanged. Multiple ill- defined pulmonary nodules are seen throughout the lungs. Overall there had been improvement compared to the study of 11/02/2016. A 1.2 cm left lower lobe nodule also seen previously was unchanged. A CT of the soft tissue of the neck was also performed on this date. The nasopharynx, oropharynx and laryngeal parents are normal in appearance. The pharyngeal airway was widely patent. There was no evidence of mass lesion identified. There was no cervical lymphadenopathy seen. There was a proximate 50% stenosis of the proximal right internal carotid artery secondary to calcified and soft plaque. The carotid arteries are otherwise patent bilaterally. There was no lytic or blastic lesions identified. There was evidence of the corpectomy at C4 an anterior fusion from C3 to C7. Continued follow-up and examination by Dr. Obed Sequeira revealed some subtle changes on his laryngoscopic examination which showed more fullness in the right arytenoid and area epiglottic fold region. Also noted was decreased mobility of his right true vocal cord compared with previous examinations. The patient is also complaining of some persistent but intermittent right neck discomfort and persistent hoarseness. It is unclear whether these changes were related to his recent ACDF surgery but it is felt that it would be important to rule out recurrent malignancy although this is felt to be less likely. The patient is scheduled for an endoscopic evaluation and biopsy on 01/27/2017. We were asked to see this patient by Dr. Saldana to evaluate the potential for stereotactic treatment of the left lower lobe nodule. Stereotactic treatment was given and was completed 02/05/2017. He received 5 fractions for a total of 5000 cGy. Interim History He has noted no change in his respiratory status since the completion of his treatment. He generally has a cough which is productive of sputum. At times there can be some mild late hemoptysis. This is unchanged from previous. He does at times coughs very strong and then will sneeze. At times it is hard for him to take in a full breath. He has known emphysema. He had a recheck CT scan of the chest in follow-up on 05/10/2017. He is here today for review of that study. Allergies Coded Allergies: NSAIDs (Verified Adverse Reaction, Unknown, upset stomach, 02/24/17) Home Medications Scheduled Ipratropium-Albuterol (Combivent Respimat), 1 PUFFS INH QID Levothyroxine Sodium (Synthroid), 125 MCG PO QAM Mirtazapine (Mirtazapine), 5 MG PO DAILY Multivitamin (Multivitamin), 1 TAB PO QAM Omeprazole (Prilosec), 20 MG PO DAILY Oxycodone Hcl (Oxycodone Hcl), 10 MG PO TID Oxycodone Hcl (Oxycontin), 1 TAB PO TID Ranitidine (Zantac), 150 MG PO BID Sertraline (Zoloft), 100 MG PO BID Zolpidem Tartrate (Ambien), 5 MG PO HS Scheduled PRN Aspirin (Aspirin), 650 MG PO QAM PRN for Headache Cyclobenzaprine Hcl (Flexeril), 10-20 MG PO TID PRN for Muscle Spasm Wheat Dextrin (Benefiber), 2 TSP PO BID PRN for Constipation Review of Systems Gastrointestinal: Symptoms: Nausea, Constipation GI Comments: occ nausea, constipation from meds Oral: Symptoms: Thick/Viscid/Mucid Saliva Other Oral Symptoms: difficulty swallowing, thick mucus Respiratory: Symptoms: SOB With Exertion, Productive Cough Respiratory Comments: wears o2 at home , uses a O2 monitor to see how much O2 he nneds Sputum Character: stopped smoking 1 yr ago Other Respiratory: coughs up dk red and thick or creamy colored Urinary: Symptoms: Nocturia Comments: nocturia times 2-3 times Skin: Symptoms: No Problems Physical Exam Vital Signs Date Time Temp Pulse Resp B/P (MAP) Pulse Ox O2 Delivery O2 Flow Rate FiO2 05/13/17 15:19 37.2 109 20 104/70 90 Pain: Pain Onset: 1 yr Side: Right Patient Pain Scale: 0 - 10 Initial Pain Intensity: 7.0 Pain Description: Dull, Aching Additional Comments: constant but can get sharp at times Fatigue: None General Appearance: no apparent distress, + thin Eyes: normal inspection, EOMI ENT: normal ENT inspection, hearing grossly normal Neck: no adenopathy, thyroid normal Respiratory/Chest: no respiratory distress, no accessory muscle use, + wheezing (very mild) Cardiovascular: regular rate, rhythm, no gallop, no murmur Extremities: no pedal edema Neurologic/Psychiatric: no motor/sensory deficits, alert, normal mood/affect Skin: warm/dry Laboratory Studies Test 02/19/17 09:06 White Blood Count 5.32 K/uL (4.8-10.8) Red Blood Count 4.88 M/uL (4.7-6.1) Hemoglobin 13.3 g/dL (14.0-18.0) Hematocrit 40.4 % (42-52) Mean Corpuscular Volume 82.8 fL (80-100) Mean Corpuscular Hemoglobin 27.3 pg (25-34) Mean Corpuscular Hemoglobin Concent 32.9 g/dl (32-36) Platelet Count 252 K/uL (130-400) Mean Platelet Volume 8.9 fL (7.4-10.4) Neutrophils (%) (Auto) 59.9 % Lymphocytes (%) (Auto) 25.8 % Monocytes (%) (Auto) 8.5 % Eosinophils (%) (Auto) 4.7 % Basophils (%) (Auto) 0.9 % Neutrophils # (Auto) 3.19 K/uL (1.4-6.5) Lymphocytes # (Auto) 1.37 K/uL (1.2-3.4) Monocytes # (Auto) 0.45 K/uL (0.11-0.59) Eosinophils # (Auto) 0.25 K/uL (0-0.5) Basophils # (Auto) 0.05 K/uL (0-0.2) RDW Standard Deviation 48.6 fL (36.4-46.3) RDW Coefficient of Variation 16.1 % (11.5-14.5) Immature Granulocyte % (Auto) 0.2 % Immature Granulocyte # (Auto) 0.01 K/uL (0.00-0.02) Sodium Level 137 mmol/L (136-145) Potassium Level 4.2 mmol/L (3.5-5.1) Chloride Level 101 mmol/L (98-107) Carbon Dioxide Level 27 mmol/L (21-32) Anion Gap 9.0 mmol/L (3-11) Blood Urea Nitrogen 11 mg/dl (7-18) Creatinine 0.74 mg/dl (0.60-1.40) Est Creatinine Clear Calc Drug Dose 107.4 ml/min Estimated GFR () 113.0 Estimated GFR (Non- 97.5 BUN/Creatinine Ratio 15.4 (10-20) Random Glucose 88 mg/dl (70-99) Calcium Level 9.3 mg/dl (8.5-10.1) Additional Studies Patient: BARBARA CASTRO Address1: [address] [facility] [address] [facility] Rec: [id number] Address2: Acct ID: [id number] [facility] Zip: [place] [id number] Date: 1950 Sex: M Room/Bed: Ref Phy: Chapito Milner D.O. SC: C.CTS Att Phy: Sirisha You PA-C Report #: [id number] Rhoda Phy: Chapito Milner D.O. Test: CX Admit Phy: Sound System Installer: [facility] Interpreting Phy: Francois Marin MD Diagnosis: LUNG CA Ordering Phy: Sirisah You PA-C Service Date: 05/10/17 Admit Date: 05/10/17 MNE: [id number] CONF: DICTATED BY: Francois Marin MD]] CC: Sirisha You PA-C Shunk, Brian R., D.O. Endcc: [~ rep ct add3]] (CHEST) THORAX WITH CLINICAL HISTORY: 67 years-old Male presenting with LUNG CANCER. TECHNIQUE: Multidetector CT imaging of the chest was performed after the administration of intravenous contrast. IV contrast: 116 mL of Optiray 320. A dose lowering technique was used consistent with the principles of ALARA (as low as reasonably achievable). COMPARISON: 12/28/2016. CT DOSE (mGy.cm): The estimated cumulative dose is 390.66 mGy.cm. FINDINGS: Padding Gluer topogram: Unremarkable. On soft tissue windows, normal thyroid and thoracic inlet. Prominent right paratracheal lymph node unchanged. Mild atherosclerosis of aortic arch. The heart size. Coronary artery calcification. No pericardial or pleural effusion. Upper abdomen normal. On lung windows, evaluation degraded by respiratory motion. Postsurgical changes of right upper lobectomy. Architectural distortion and bandlike opacities in the right middle lobe consistent with scarring. Mild smooth interlobular septal thickening at the lung bases. Apical predominant emphysematous changes. Mild bronchial wall thickening. Interval resolution of previously noted peripheral peribronchovascular consolidation in the right lower lobe. Minimal residual dependent opacities in the right lower lobe likely atelectasis. Interval increase in dependent groundglass and some pleural nodularity in the left lower lobe. This extends into the superior segment (series 4 image 171). The fissural solid 1.2 cm nodule centrally in the left lower lobe is unchanged from prior (series 4 image 182). Previously noted 7 mm nodule in the lingula has resolved. Faint centrilobular groundglass opacities may be present in the lingula. No debris in the airways. On bone windows, partially visualized cervical fusion hardware. Degenerative changes of the spine and right acromioclavicular joint. IMPRESSION: 1. Interval resolution of peripheral peribronchovascular consolidation in the right lower lobe, consistent with resolved infectious/inflammatory process. 2. Interval increase in dependent groundglass and nodular opacities in the left lower lobe. This raises concern for aspiration and/or infection. 3. Stable appearance of the 1.2 cm solid nodule in the left lower lobe. No new nodule. 4. Emphysema and bronchial wall thickening. 5. Post surgical changes of right upper lobectomy. Electronically signed by: Francois Marin M.D. 05/10/2017 9:36 AM Dictated Date/Time: 05/10/2017 9:28 AM Assessment & Plan Plan: Today we reviewed the results of the CT of the chest the nodule that was treated is stable and unchanged. There are no new nodules. There are changes of consolidation in the right lower lobe. There are groundglass changes in the left lower lobe. These may be related to infection or inflammation. He currently is not exhibiting signs of infection. He has no purulent sputum. He has no fever or chills. He has very mild hemoptysis. He has had this for an extended period time. This may be related to the very strong cough and sneezing that occurs. He had been seen previously by Dr. Whitmore in regards to pulmonary care. I've asked that they call and make an appointment to follow with pulmonology. He is on an inhaler but could benefit from a nebulizer. He monitors pulse oximetry at home. This has been stable. He is to make an appointment with Dr. Hayes. His will call and set up that appointment. He continues regular follow-up with Dr. Saldana. He'll otherwise return to our office in 3 months following a recheck CT scan of the chest. He may call if he has any questions or concerns in the interim. Total Time In Follow-Up I spent 20 minutes speaking to the patient and performing examination. I spent 15 minutes reviewing information completing this note. Copy To Chano Saldana MD; Chapito Milner,D.O.; Pritesh Hayes MD
== END | disposition home or self-care (01) ==
LOC: C.ONC 15:07
PROVIDERS: ATTEND Physician Assistant Medical
DX: Z08 Encounter for follow-up examination after completed treatment for malignant neoplasm (principal); Z92.3 Personal history of irradiation; Z85.89 Personal history of malignant neoplasm of other organs and systems

== ENCOUNTER 2017-07-21 13:31 | Inpatient (IN) | payer OTHER ==
[~2017-07-21] VITALS: Ht 180.3 cm; Wt 74.8 kg
[~2017-07-21 13:31] MED LIST changes: -CEFU1TAB36 PO; -LEVO112T2 PO
[2017-07-21] MEDS ORDERED: ALBUT/IPRATROP 3MG/0.5MG NEB 3 ML VIAL INH STA (13:39)
[2017-07-21] MEDS ORDERED: SODIUM CHLORIDE 0.9% 500ML 500 ML IV STA (13:55)
--- NOTE | 2017-07-21 13:55 | EMERGENCY ROOM VISIT NOTE ---
History First contact with patient: 13:38 (Bari Danielle MD) First contact with patient: 13:38 (Tan Montes De Oca MD) Chief Complaint: SHORTNESS OF BREATH Stated Complaint: SOB History of Present Illness The patient is a 67 year old male with COPD and Hx of lung cancer who presents to the Emergency Room with complaints of shortness of breath on exertion. He was here for pulmonary rehabilitation and saw Dr Marx who auscultated his chest and advised coming to the ER. As per his his saturations have been in the 70's when walking at home. He was last admitted to [facility] for COPD exacerbation on June 06. He felt much improved after this hospital admission but feels he is getting progressively worse since then especially over the last month. In the past 7 days he has had a fever 3 times (maximum of 100.7 2 days previously). He wears 3.5 L O2 at home chronically. His also notes his appetite has been extremely poor due to pain on swallowing and he typically eats one jello pot in a 24 hour period. He does not choke on food but feels it gets stuck. He saw ENT 1 month previously and was told his pain is likely neuropathic from previous back surgery. He has a chronic cough, coughing up brown sputum (his has a pot of it with her). He reports he also chronically coughs up blood but this has actually been improving. He denies any chest pain, history of PR or congestive heart failure, He has a history of lung ca - treated with right upper lobectomy in June 2016, and left lower lobe treated with SBRT. He also has a history of laryngeal cancer. (Bari Danielle MD) Source of History: patient Onset: 2 weeks Position: other (global) Quality: other (shortness of breath) Timing: other (persistent ) Modifying Factors (Worsening): exertion Associated Symptoms: + fevers (3 in the past 7 days, 100.7 was the most recent), + cough (chronic) (Tan Montes De Oca MD) Review of Systems reports 10lb of weight loss in the last month - he is not eating All other systems were reviewed and otherwise negative other than HPI (Bari Danielle MD) See HPI for pertinent positives and negatives. A total of ten systems were reviewed and were otherwise negative. 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 (19) Pneumonia (20) TOBACCO USE DISORDER (Tan Montes De Oca MD) Family History Cancer (Bari Danielle MD) Cancer (Tan Montes De Oca MD) Social History Smoking Status: Former Smoker Alcohol Use: occasionally Drug Use: none Marital Status: single Housing Status: lives with significant other Occupation Status: unemployed, disabled (Bari Danielle MD) Current/Historical Medications Scheduled Budesonide/Formoterol Fumarate (Symbicort 80/4.5 Inhaler), 2 PUFFS INH BID Cyclobenzaprine Hcl (Flexeril), 10-20 MG PO TID Gabapentin (Gabapentin), 100 MG PO TID Levothyroxine Sodium (Levothyroxine Sodium), 1 TAB PO DAILY Mirtazapine (Mirtazapine), 7.5 MG PO HS Multivitamin (Multivitamin), 1 TAB PO DAILY Naproxen (Aleve), 220 MG PO PRN Omeprazole (Prilosec), 20 MG PO BID Oxycodone Hcl (Oxycodone Hcl), 20 MG PO UD Ranitidine (Zantac), 150 MG PO BID Sertraline (Zoloft), 100 MG PO DAILY Zolpidem Tartrate (Ambien), 5 MG PO HS Scheduled PRN Aspirin (Aspirin), 650 MG PO QAM PRN for Headache Levalbuterol Hcl (Levalbuterol Hcl), 1.25 MG INH TID PRN for SOB/Wheezing Oxycodone Ir (Roxicodone Ir), 10 MG PO TID PRN for Severe Pain Wheat Dextrin (Benefiber), 2 TSP PO BID PRN for Constipation Durable Medical Equipment Nebulizer Machine (Home Use) (Nebulizer Machine (Home Use) ), EA N/A UD Physical Exam Vital Signs Date Time Temp Pulse Resp B/P (MAP) Pulse Ox O2 Delivery O2 Flow Rate FiO2 07/21/17 14:10 Nasal Cannula 4.0 07/21/17 13:56 126 07/21/17 13:33 36.9 126 26 156/95 93 Nasal Cannula 4.0 (Tan Montes De Oca MD) Physical Exam General Appearance: + mild distress (respiratory), + thin Head: normocephalic, atraumatic Eyes: normal inspection (pupils equal), EOMI ENT: + pertinent finding (dry mucus membranes) Neck: supple, trachea midline Respiratory/Chest: + crackles (bilateral coarse crackles throughout chest without significant wheezing) Cardiovascular: regular rate, rhythm, no edema, no murmur, normal peripheral pulses Abdomen / GI: normal bowel sounds, non tender, soft Back: no CVA tenderness Extremities: no calf tenderness, normal capillary refill, no pedal edema Neurologic/Psych: model maker II-XII nml as tested (no facial droop), no motor/ sensory deficits (grossly), alert, oriented x 3 (Bari Danielle MD) Medical Decision & Procedures ER Provider Diagnostic Interpretation: CHEST ONE VIEW PORTABLE CLINICAL HISTORY: shortness of breath, COPD COMPARISON STUDY: 06/08/2017 FINDINGS: The cardiac images so contours remain stable. The patient is hyperinflated. Since the prior study, the patient has developed right mid and lower lung zone airspace opacities and left basal airspace opacities. The findings are suspicious for a bilateral pneumonitis. Clinical and radiographic follow-up is recommended. Postsurgical changes are present within the cervical spine.[ IMPRESSION: Interval development of bilateral pulmonary airspace opacities with a lower lung zone predominance. The findings are suspicious for a bilateral pneumonitis. Clinical and radiographic follow-up is recommended. Electronically signed by: Gentry Tsang M.D. 07/21/2017 2:07 PM Dictated Date/Time: 07/21/2017 2:05 PM (Bari Danielle MD) Diagnostic Interpretation: Radiology results as stated below per my review and radiologist interpretation: CHEST ONE VIEW PORTABLE CLINICAL HISTORY: shortness of breath, COPD COMPARISON STUDY: 06/08/2017 FINDINGS: The cardiac images so contours remain stable. The patient is hyperinflated. Since the prior study, the patient has developed right mid and lower lung zone airspace opacities and left basal airspace opacities. The findings are suspicious for a bilateral pneumonitis. Clinical and radiographic follow-up is recommended. Postsurgical changes are present within the cervical spine.[ IMPRESSION: Interval development of bilateral pulmonary airspace opacities with a lower lung zone predominance. The findings are suspicious for a bilateral pneumonitis. Clinical and radiographic follow-up is recommended. Electronically signed by: Gentry Tsang M.D. 07/21/2017 2:07 PM (Tan Montes De Oca MD) Laboratory Results 07/21/17 13:55 Red Blood Count 4.38, Mean Corpuscular Volume 79.9, Mean Corpuscular Hemoglobin 26.9, Mean Corpuscular Hemoglobin Concent 33.7, Mean Platelet Volume 8.8, Neutrophils (%) (Auto) 81.4, Lymphocytes (%) (Auto) 10.8, Monocytes (%) (Auto) 5.6, Eosinophils (%) (Auto) 1.4, Basophils (%) (Auto) 0.2, Neutrophils # (Auto) 10.23, Lymphocytes # (Auto) 1.36, Monocytes # (Auto) 0.70, Eosinophils # (Auto) 0.17, Basophils # (Auto) 0.03 07/21/17 13:55 Test 07/21/17 13:55 07/21/17 14:21 07/21/17 15:00 White Blood Count 12.56 K/uL (4.8-10.8) Red Blood Count 4.38 M/uL (4.7-6.1) Hemoglobin 11.8 g/dL (14.0-18.0) Hematocrit 35.0 % (42-52) Mean Corpuscular Volume 79.9 fL (80-100) Mean Corpuscular Hemoglobin 26.9 pg (25-34) Mean Corpuscular Hemoglobin Concent 33.7 g/dl (32-36) Platelet Count 345 K/uL (130-400) Mean Platelet Volume 8.8 fL (7.4-10.4) Neutrophils (%) (Auto) 81.4 % Lymphocytes (%) (Auto) 10.8 % Monocytes (%) (Auto) 5.6 % Eosinophils (%) (Auto) 1.4 % Basophils (%) (Auto) 0.2 % Neutrophils # (Auto) 10.23 K/uL (1.4-6.5) Lymphocytes # (Auto) 1.36 K/uL (1.2-3.4) Monocytes # (Auto) 0.70 K/uL (0.11-0.59) Eosinophils # (Auto) 0.17 K/uL (0-0.5) Basophils # (Auto) 0.03 K/uL (0-0.2) RDW Standard Deviation 43.2 fL (36.4-46.3) RDW Coefficient of Variation 14.8 % (11.5-14.5) Immature Granulocyte % (Auto) 0.6 % Immature Granulocyte # (Auto) 0.07 K/uL (0.00-0.02) Prothrombin Time 10.2 SECONDS (9.0-12.0) Prothromb Time International Ratio 1.0 (0.9-1.1) Activated Partial Thromboplast Time 34.8 SECONDS (21.0-31.0) Partial Thromboplastin Ratio 1.3 Anion Gap 10.0 mmol/L (3-11) Estimated GFR () 119.1 Estimated GFR (Non- 102.7 BUN/Creatinine Ratio 20.6 (10-20) Calcium Level 9.0 mg/dl (8.5-10.1) Troponin I < 0.015 ng/ml (0-0.045) Lactic Acid Level 1.7 mmol/L (0.4-2.0) Influenza Type A (RT-PCR) Neg for Influ A (NEG) Influenza Type A Antigen Neg for Influ A (NEG) Influenza Type B Antigen Neg for Influ B (NEG) Influenza Type B (RT-PCR) Neg for Influ B (NEG) Date/Time Source Procedure Growth Status 07/21/17 14:30 Nasal MRSA DNA Surveillance Screen - Final Specimen Negative for MRSA by DNA Probe Complete Laboratory results reviewed by me (Tan Montes De Oca MD) Medications Administered Medications (Trade) Dose Ordered Sig/Kirby Route Start Time Stop Time Status Last Admin Dose Admin Albuterol/ Ipratropium (Duoneb) 3 ml ONE STAT INH 07/21/17 13:39 07/21/17 13:42 DC 07/21/17 14:06 3 ML Sodium Chloride 500 ml @ 999 mls/hr Q31M STAT IV 07/21/17 13:55 07/21/17 14:26 DC 07/21/17 14:06 999 MLS/HR Piperacillin Sod/ Tazobactam Sod (Zosyn Iv) 4.5 gm NOW STAT IV 07/21/17 14:06 07/21/17 14:11 DC 07/21/17 14:27 4.5 GM Azithromycin 500 mg/Dextrose 255 ml @ 125 mls/hr ONE STAT IV 07/21/17 14:06 07/21/17 16:08 DC 07/21/17 14:56 125 MLS/HR Vancomycin HCl 1000 mg/Sodium Chloride 270 ml @ 125 mls/hr NOW STAT IV 07/21/17 14:06 07/21/17 16:15 DC 07/21/17 14:46 125 MLS/HR Guaifenesin (Mucinex Contr Rel Tab) 600 mg ONE STAT PO 07/21/17 14:06 07/21/17 14:12 DC 07/21/17 14:46 600 MG Methylprednisolone Sodium Succinate (Solu-Medrol IV) 125 mg NOW STAT IV 07/21/17 14:21 07/21/17 14:23 DC 07/21/17 15:02 125 MG Sodium Chloride 1,000 ml @ 999 mls/hr Q1H1M STAT IV 07/21/17 14:40 07/21/17 15:40 DC 07/21/17 15:49 999 MLS/HR (Tan Montes De Oca MD) ECG Indication: SOB/dyspnea Rate (beats per minute): 99 Rhythm: normal sinus Findings: no acute ischemic change Change: no significant change (06 June 2017) (Bari Danielle MD) Indication: SOB/dyspnea Rate (beats per minute): 99 Rhythm: normal sinus Findings: no acute ischemic change, left axis deviation, prolonged QT, no ectopy (Tan Montes De Oca MD) ED Course Complete history and physical was performed by myself in room B6 The patient was discussed with Dr Montes De Oca who separately performed history and examination The patient was reassessed on multiple occurrences with mild improvement in his symptoms The patient was discussed with Dr Pruett ([facility] Hospitalist) who accepted the patient for further evaluation and treatment (Bari Danielle MD) 1335: The patient was evaluated in room B6. A complete history and physical exam was performed. 1339: Ordered Duoneb 3ml INH. 1355: Ordered Sodium Chloride 500l @ 999 mls/hr IV. 1406: Ordered Mucinex Contr Rel Tab 600mg PO, Vancomycin HCL 1000mg/Sodium Chloride 270ml @ 125 mls/hr IV, Azithromycin 500 mg/Dextrose 255ml @ 125mls/hr IV, and Zosyn 4.5 gm IV. 1421: Ordered Solu-Medrol 125mg IV. 1443: Discussed the patient's case with Dr. Pruett [facility]. The patient will be evaluated for further treatment and disposition. 1440: Ordered Sodium Chloride 1000ml @ 999 mls/hr IV. (Tan Montes De Oca MD) Medical Decision Prior records/ancillary studies reviewed. Triage Nursing notes reviewed. Additional history obtained from the family. The patient's history was concerning for respiratory difficulties. Differential diagnosis: Etiologies such as infections, reactive airway disease, pneumonia, pneumothorax , COPD, CHF, cardiac ischemia, pulmonary embolism, musculoskeletal, gastrointestinal, as well as others were entertained. Physical examination: As above. Bilateral crackles ER treatment provided: Duoneb Solu-medrol 125mg IV Zosyn 4.5g IV Azithromycin 500mg IV Vancomycin 1000mg IV 1.5L NSS bolus On reassessment the patient felt better. Diagnostic interpretation by me: The electrocardiogram was negative for acute ischemic or pathologic change. The labs revealed elevated WBC and hyponatremia Imaging studies: Chest x-ray as above. Consultation: A consultation was placed with the [facility] hospitalist (Dr Pruett). The case was discussed and diagnostics were reviewed. The patient was evaluated in the ER for further treatment. (Bari Danielle MD) Medication Reconcilliation Current Medication List: was personally reviewed by me (Bari Danielle MD) Current Medication List: was personally reviewed by me (Tan Montes De Oca MD) Blood Pressure Screening Patient's blood pressure: Elevated blood pressure referred to hospitalist (Bari Danielle MD) Patient's blood pressure: Elevated blood pressure Blood pressure disposition: Referred to PCP (referred to hospitalist ) (Tan Montes De Oca MD) Impression Primary Impression: Bilateral pneumonia Departure Information Dispostion Being Evaluated By Hospitalist Referrals Chapito Milner D.O. (PCP) Patient Instructions My [facility] Resident Tracking Resident Involvement: Resident Care Provided Care Provided: Adult ED (Bari Danielle MD) Problem Qualifiers Primary Impression: Bilateral pneumonia Pneumonia type: due to unspecified organism Lung location: lower lobe of lung Qualified Codes: J18.9 - Pneumonia, unspecified organism
[2017-07-21] MEDS ORDERED: GUAIFENESIN 600 MG TABCR PO STA (14:06)
[2017-07-21] MEDS ORDERED: VANCOMYCIN INJ 1,000 MG in SODIUM CHLORIDE 0.9% 250ML 250 ML IV STA (14:06)
[2017-07-21] MEDS ORDERED: PIPERACILLIN/TAZOBACTAM 4.5 GM/100ML D5W IV STA (14:06)
[2017-07-21] MEDS ORDERED: AZITHROMYCIN IV 500 MG in DEXTROSE 5% 250ML 250 ML IV STA (14:06)
--- NOTE | 2017-07-21 14:08 | DIAGNOSTIC IMAGING REPORT ---
CHEST ONE VIEW PORTABLE CLINICAL HISTORY: shortness of breath, COPD COMPARISON STUDY: 06/08/2017 FINDINGS: The cardiac images so contours remain stable. The patient is hyperinflated. Since the prior study, the patient has developed right mid and lower lung zone airspace opacities and left basal airspace opacities. The findings are suspicious for a bilateral pneumonitis. Clinical and radiographic follow-up is recommended. Postsurgical changes are present within the cervical spine.[ IMPRESSION: Interval development of bilateral pulmonary airspace opacities with a lower lung zone predominance. The findings are suspicious for a bilateral pneumonitis. Clinical and radiographic follow-up is recommended. Electronically signed by: Gentry Tsang M.D. 07/21/2017 2:07 PM Dictated Date/Time: 07/21/2017 2:05 PM
[2017-07-21 14:12] LABS: BASO % 0.2 %; BASO ABS # 0.03 K/uL (0-0.2); COMPLETE YES; EOS % 1.4 %; IG% 0.6 %; LYMPH % 10.8 %; LYMPH ABS # 1.36 K/uL (1.2-3.4); MEAN CELL VOLUME 79.9 fL (80-100); MEAN CORPUSCULAR HEMOGLOBIN 26.9 pg (25-34); MEAN CORPUSCULAR HGB CONC 33.7 g/dl (32-36); MEAN PLATELET VOLUME 8.8 fL (7.4-10.4); MONO % 5.6 %; NEUT % 81.4 %; PLATELET COUNT 345 K/uL (130-400); RED BLOOD COUNT 4.38 M/uL (4.7-6.1); WHITE BLOOD COUNT 12.56 K/uL (4.8-10.8)
[2017-07-21] MEDS ORDERED: METHYLPREDNISOLONE 125 MG VIAL IV STA (14:21)
[2017-07-21 14:30] LABS: BLOOD UREA NITROGEN 13 mg/dl (7-18); BUN/CREATININE RATIO 20.6 (10-20); CARBON DIOXIDE 23 mmol/L (21-32); CHLORIDE 92 mmol/L (98-107); CREATININE 0.64 mg/dl (0.60-1.40); GLUCOSE 98 mg/dl (70-99); POTASSIUM 3.5 mmol/L (3.5-5.1); SODIUM 125 mmol/L (136-145)
[2017-07-21 14:40] LABS: PARTIAL THROMBOPLASTIN RATIO 1.3; PROTHROMBIN TIME (PATIENT) 10.2 SECONDS (9.0-12.0)
[2017-07-21] MEDS ORDERED: SODIUM CHLORIDE 0.9% 1000ML 1,000 ML IV STA (14:40)
[2017-07-21] MEDS ORDERED: SYMIN/8045 INH (15:06)
--- NOTE | 2017-07-21 15:08 | History and Physical ---
History & Physical Date & Time of Service: Jul 21, 2017 at 15:06 Chief Complaint: SOB Primary Care Physician: Chapito Milner D.O. History of Present Illness This is a 67 yo M with PMHx of CAD, hx of Right lung cancer diagnosed 05/2016, supraglottic carcinoma s/p tumor removal, hx of tobacco use quit 1 year ago, HTN, COPD, Depression, GERD, dysphagia and recent weight loss of 20lbs in the past 3 weeks who presents directly from pulmonary clinic after seeing Dr. Marx. The patient is present here with his . Pt reports that he was admitted recently and discharged on Jun 09 for pneumonia. At that time was feeling well, although within 1 week after discharge began feeling slightly worse. He notes progressive shortness of breath, weakness since then. In the past week, he reports having a fever three times with Tmax= 100.7. The patient has been having night sweats moreso in the past week as well. He is able to speak but becomes winded with long sentances. His O2 sats also drop to < 90 % several times during conversation. He reports his diet has been quit poor due to inability to swallow well. He had a metal plate placed for cervical surgery several months ago, and had a biopsy of the supraglottic lesion in February 2017. Since then has seen ENT which informed him that the nerves were damaged. He attributes this rapid weight loss to this. Pt admits to choking on thin liquids and even sometimes small pills. He currently is requiring 4 L O2, but baseline is at 3.5 L. He reports having a cough with dark brown productive sputum which he has present at bedside. 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 Radiation completed 02/28/2010 received 7200 cGy Finding of asymmetry of larynx on the right. Plan for laryngoscopy and biopsy Status post laryngoscopy and biopsy 02/24/2017, benign Status: Resolved (2) Cervical stenosis of spinal canal Status: Resolved (3) Chronic back pain Status: Chronic (4) CORONARY ATHEROSCLEROSIS OF [place] CORONARY VESSEL Status: Chronic (5) DEPRESSIVE DISORDER NEC Status: Chronic (6) FAMILY HISTORY OF OTHER CARDIOVASCULAR DISEASES Status: Chronic (7) FAMILY HX-MALIGNANCY NOS Status: Chronic (8) HYPERTENSION NOS Status: Chronic (9) MALIG ANKIT SUPRAGLOTTIS Status: Chronic (10) TOBACCO USE DISORDER Status: Chronic Family History Cancer Social History Smoking Status: Former Smoker Smokeless Tobacco Use: No Alcohol Use: none Drug Use: none Marital Status: Housing status: lives with family Occupational Status: unemployed, disabled Allergies Coded Allergies: NSAIDs (Verified Adverse Reaction, Mild, upset stomach, 07/21/17) Home Medications Scheduled Budesonide/Formoterol Fumarate (Symbicort 80/4.5 Inhaler), 2 PUFFS INH BID Cyclobenzaprine Hcl (Flexeril), 10-20 MG PO TID Gabapentin (Gabapentin), 100 MG PO TID Levothyroxine Sodium (Levothyroxine Sodium), 1 TAB PO DAILY Mirtazapine (Mirtazapine), 7.5 MG PO HS Multivitamin (Multivitamin), 1 TAB PO DAILY Naproxen (Aleve), 220 MG PO PRN Omeprazole (Prilosec), 20 MG PO BID Oxycodone Hcl (Oxycodone Hcl), 20 MG PO UD Ranitidine (Zantac), 150 MG PO BID Sertraline (Zoloft), 100 MG PO DAILY Zolpidem Tartrate (Ambien), 5 MG PO HS Scheduled PRN Aspirin (Aspirin), 650 MG PO QAM PRN for Headache Levalbuterol Hcl (Levalbuterol Hcl), 1.25 MG INH TID PRN for SOB/Wheezing Oxycodone Ir (Roxicodone Ir), 10 MG PO TID PRN for Severe Pain Wheat Dextrin (Benefiber), 2 TSP PO BID PRN for Constipation Review of Systems Constitutional: + fever, + chills, + sweats, + weight loss, + weakness, + fatigue Eyes: No redness, No diplopia ENT: + trouble swallowing, + problem reported (hoarse voice is unchanged), No nasal symptoms, No sore throat Respiratory: + cough, + sputum, + wheezing, + shortness of breath, + dyspnea on exertion, + dyspnea at rest Cardiovascular: No chest pain, No orthopnea, No edema, No palpitations Abdomen: + constipation (Last Bm 2 days ago), No pain, No nausea, No vomiting, No diarrhea, No GI bleeding Musculoskeletal: No joint pain, No swelling, No calf pain Genitourinary - Male: No hematuria, No dysuria Neurologic: No memory loss, No numbness/tingling, No balance problems Psychiatric: + depression symptoms, No anxiety Endocrine: + fatigue Integumentary: No rash, No itch Physical Exam Vital Signs Date Time Temp Pulse Resp B/P (MAP) Pulse Ox O2 Delivery O2 Flow Rate FiO2 07/21/17 14:10 Nasal Cannula 4.0 07/21/17 13:56 126 07/21/17 13:33 36.9 126 26 156/95 93 Nasal Cannula 4.0 General Appearance: + mild distress, + thin Head: normocephalic, atraumatic Eyes: PERRL, EOMI ENT: hearing grossly normal, pharynx normal, + muffled/hoarse voice Neck: supple, no adenopathy, thyroid normal, no JVD, + pertinent finding ( linear scar R neck ) Respiratory/Chest: + pertinent finding (on 4 L via NC, coarse breath sounds throughout and worse in R field. + rales. No wheeze.) Cardiovascular: no murmur, normal peripheral pulses, + tachycardia Abdomen/GI: normal bowel sounds, non tender, soft Back: normal inspection Extremities/Musculoskelatal: normal inspection, no calf tenderness, no pedal edema Neurologic/Psych: alert, normal mood/affect, oriented x 3 Skin: normal color, warm/dry Diagnostics Laboratory Results Results Past 24 Hours Test 07/21/17 13:55 07/21/17 14:21 07/21/17 14:30 Range/Units White Blood Count 12.56 4.8-10.8 K/uL Red Blood Count 4.38 4.7-6.1 M/uL Hemoglobin 11.8 14.0-18.0 g/dL Hematocrit 35.0 42-52 % Mean Corpuscular Volume 79.9 80-100 fL Mean Corpuscular Hemoglobin 26.9 25-34 pg Mean Corpuscular Hemoglobin Concent 33.7 32-36 g/dl Platelet Count 345 130-400 K/uL Mean Platelet Volume 8.8 7.4-10.4 fL Neutrophils (%) (Auto) 81.4 % Lymphocytes (%) (Auto) 10.8 % Monocytes (%) (Auto) 5.6 % Eosinophils (%) (Auto) 1.4 % Basophils (%) (Auto) 0.2 % Neutrophils # (Auto) 10.23 1.4-6.5 K/uL Lymphocytes # (Auto) 1.36 1.2-3.4 K/uL Monocytes # (Auto) 0.70 0.11-0.59 K/uL Eosinophils # (Auto) 0.17 0-0.5 K/uL Basophils # (Auto) 0.03 0-0.2 K/uL RDW Standard Deviation 43.2 36.4-46.3 fL RDW Coefficient of Variation 14.8 11.5-14.5 % Immature Granulocyte % (Auto) 0.6 % Immature Granulocyte # (Auto) 0.07 0.00-0.02 K/uL Prothrombin Time 10.2 9.0-12.0 SECONDS Prothromb Time International Ratio 1.0 0.9-1.1 Activated Partial Thromboplast Time 34.8 21.0-31.0 SECONDS Partial Thromboplastin Ratio 1.3 Sodium Level 125 136-145 mmol/L Potassium Level 3.5 3.5-5.1 mmol/L Chloride Level 92 98-107 mmol/L Carbon Dioxide Level 23 21-32 mmol/L Anion Gap 10.0 3-11 mmol/L Blood Urea Nitrogen 13 7-18 mg/dl Creatinine 0.64 0.60-1.40 mg/dl Estimated GFR () 119.1 Estimated GFR (Non- 102.7 BUN/Creatinine Ratio 20.6 10-20 Random Glucose 98 70-99 mg/dl Calcium Level 9.0 8.5-10.1 mg/dl Troponin I < 0.015 0-0.045 ng/ml Lactic Acid Level 1.7 0.4-2.0 mmol/L Microbiology Results 07/21/17 Blood Culture, Received Pending 07/21/17 Blood Culture, Received Pending 07/21/17 MRSA DNA Surveillance Screen, Received Pending 07/21/17 Gram Stain, Bert Batch Pending 07/21/17 Sputum Culture, Bert Batch Pending Diagnostic Radiology CHEST ONE VIEW PORTABLE CLINICAL HISTORY: shortness of breath, COPD COMPARISON STUDY: 06/08/2017 FINDINGS: The cardiac images so contours remain stable. The patient is hyperinflated. Since the prior study, the patient has developed right mid and lower lung zone airspace opacities and left basal airspace opacities. The findings are suspicious for a bilateral pneumonitis. Clinical and radiographic follow-up is recommended. Postsurgical changes are present within the cervical spine.[ IMPRESSION: Interval development of bilateral pulmonary airspace opacities with a lower lung zone predominance. The findings are suspicious for a bilateral pneumonitis. Clinical and radiographic follow-up is recommended. Electronically signed by: Gentry Tsang M.D. 07/21/2017 2:07 PM Dictated Date/Time: 07/21/2017 2:05 PM The status of this report is Signed. Impression Assessment and Plan (1) Bilateral pneumonia Assessment & Plan: - Admit to tele - Started on vanc, zosyn and azithromycin in the ER. - Flu swab pending - Continue on fluids overnight with NSS at 125 ml/Hr - Follow Bcx, sputum culture - follow - Pulmonary consulted - Dr. 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 Marx as an outpatient - consult pulm - stable (5) Cancer of supraglottis Assessment & Plan: - Likely that surgery for tumor removal damaged nerve tissues and therefore swallowing function impaired Dysphagia worsening in past 3 weeks Speech therapy consulted Consider barium swallow or ENT consultation pending results Keep NPO except sips, chips and meds for now - Stable currently (6) CORONARY ATHEROSCLEROSIS OF [place] CORONARY VESSEL (7) HYPERTENSION NOS Assessment & Plan: - Not on any antihypertensives. (8) Hypothyroidism Assessment & Plan: - Continue Levothyroxine 100 mcg daily (9) Depression Assessment & Plan: - Continue zoloft 100 mg daily (10) Cervical stenosis of spinal canal (11) Chronic low back pain Assessment & Plan: - [facility] Pt reports taking Oxycontin ER 40 mg QAM, 20 mg in eary afternoon, and then another 40 mg in evening/before bed Also takes Oxycodone 10 mg TID at the same times as his ER med as above. Level of Care Telemetry Resuscitation Status FULL RESUSCITATION VTE Prophylaxis Risk Level: Low Given or contraindicated: Marlys Brunner, SCD's Reviewed: Pt Seen/Exam by Me History Pt still a bit SOB, but overall improving. Had decreased PO the last few days due to the swallowing issue outlined above. Feels his appetite is good though. No chest pain with this. He has been constipated as well, but feels like this may resolve shortly. Agree with HPI/ROS as noted. General Appearance: WD/WN, no apparent distress Respiratory: no respiratory distress, crackles, rhonchi, other (neg for wheezing) Cardiovascular: normal peripheral pulses, regular rate, rhythm Gastrointestinal: non tender, soft Extremities: non-tender, no pedal edema Neurologic/Psychiatric: alert, normal mood/affect, oriented x 3 Skin Characteristics: normal color, warm/dry Assessment/Plan Agree with plan as outlined above PNA noted on CXR, must consider HAP considering recent admission in the last 60 days. Swallow eval pending Flu pending Blood cx pending Problem Qualifiers (1) Bilateral pneumonia: Pneumonia type: due to unspecified organism Lung location: lower lobe of lung Qualified Codes: J18.9 - Pneumonia, unspecified organism (2) COPD (chronic obstructive pulmonary disease): COPD type: COPD with acute lower respiratory infection Qualified Codes: J44.0 - Chronic obstructive pulmonary disease with acute lower respiratory infection (3) Depression: Depression Type: major depressive disorder Major depression recurrence: recurrent Active/Remission status: in partial remission Qualified Codes: F33.41 - Major depressive disorder, recurrent, in partial remission
[2017-07-21] MEDS ORDERED: ONDANSETRON INJ 2 MG/ML 2 ML VIAL IV PRN (15:45)
[2017-07-21] MEDS ORDERED: POLYETHYLENE (MIRALAX) 17 GM PACK PO PRN (15:45)
[2017-07-21] MEDS ORDERED: ASPIRIN 325 MG ECTAB PO PRN (15:45)
[2017-07-21] MEDS ORDERED: MAGNESIUM HYDROXIDE SUSP 30 ML UDC PO PRN (15:45)
[2017-07-21] MEDS ORDERED: ACETAMINOPHEN 325 MG TAB PO PRN (15:45)
[2017-07-21] MEDS ORDERED: OXYC20TA32 PO (16:23)
[2017-07-21] MEDS ORDERED: OXYC1TAB3 PO (16:23)
[2017-07-21 16:29] LABS: INFLUENZA A PCR Neg for Influ A (NEG); INFLUENZA B PCR Neg for Influ B (NEG)
[2017-07-21 17:55] VITALS: BP 165/95; PULSE 128; TEMP 36.3; O2SAT 92; Ht 180.3 cm; Wt 74.8 kg
[2017-07-21] MEDS ORDERED: PIPERACILL/TAZOBAC CONSULT ACTIVE PRN (18:00)
[2017-07-21] MEDS: OXYCODONE HCL IR 5 MG TAB (IMMEDIATE RELEASE) PO PRN (18:02)
[2017-07-21] MEDS: SODIUM CHLORIDE 0.9% 1000ML 1,000 ML IV SCH (18:03)
[2017-07-21] MEDS: LEVALBUTEROL 1.25MG/3ML NEB INH SCH (19:03)
[2017-07-21 19:06] VITALS: PULSE 106; O2SAT 95
[2017-07-21 19:44] VITALS: BP 135/76; PULSE 107; TEMP 36.8; O2SAT 92
[2017-07-21] MEDS: PIPERACILL/TAZOBAC IV 3.375 GM in DEXTROSE 5% 100ML 100 ML IV SCH (19:54)
[2017-07-21] MEDS: BUDESONIDE/FORMOTEROL FUMARATE 80/4.5 60 PUFFS/INHALER INH SCH (19:55)
[2017-07-21] MEDS: GUAIFENESIN 600 MG TABCR PO SCH (19:56)
[2017-07-21] MEDS: RANITIDINE HCL 150 MG TAB PO SCH (19:57)
[2017-07-21] MEDS: MIRTAZAPINE TAB 15 MG TAB PO SCH (19:58)
[2017-07-21] MEDS: CYCLOBENZAPRINE HCL 10 MG TAB PO SCH (19:59)
[2017-07-21] MEDS: GABAPENTIN 100 MG CAP PO SCH (19:59)
[2017-07-21 20:00] VITALS: O2SAT 92
[2017-07-21] MEDS ORDERED: PIPERACILL/TAZOBAC IV 3.375 GM in DEXTROSE 5% 100ML 100 ML IV SCH (20:00)
[2017-07-21] MEDS ORDERED: ZOLPIDEM TARTRATE 10 MG TAB PO SCH (21:00)
[2017-07-21] MEDS: ZOLPIDEM TARTRATE 5 MG TAB PO SCH (21:39)
[2017-07-21] MEDS: OXYCODONE HCL 40 MG TABCR (OXYCONTIN) PO SCH (21:39)
--- NOTE | 2017-07-21 22:07 | EMERGENCY ROOM VISIT NOTE ---
History Report prepared by Dank: Ariane Cardoso Under the Supervision of: Dr. Tan Montes De Oca M.D. First contact with patient: 13:38 Chief Complaint: SHORTNESS OF BREATH Stated Complaint: SOB Nursing Triage Summary: pt c/o of worsening SOB. from pulmonary rehab, instucted to come to ER. History of Present Illness The patient is a 67 year old male who presents to the Emergency Room with complaints of persistent shortness of breath that has worsen in the last 2 weeks. The patient states that his dyspnea worsens with exertion. He notes that he was seen by for pulmonary rehabilitation.The patient's states that his saturations have been in the 70's while he ambulates at home. The patient was recently seen in the Emergency Department for COPD exacerbation, noting he was admitted. He states that after his last admission, he has felt better than he has in years. In the past month, his symptoms have progressively worsened. The patient notes he has had 3 fevers in the past 7 days, noting that his last fever was 100.7 degrees Fahrenheit. He denies being febrile today. The patient' s states that the patient has been experiencing severe loss of appetite, noting he only eats one jello pot within 24 hours. The patient has trouble swallowing, noting it feels painful and like he has something stuck in his throat. He denies a history of choking. The patient has experienced weight loss recently. He was told by ENT one month ago that his pain while swallowing is likely neuropathic. The patient has a chronic cough with brown sputum, secondary to COPD. He notes he chronically coughs up blood, which has been improving. He notes a history of laryngeal cancer. Pt denies LOC, headache, fevers, chills, diaphoresis, visual changes, neck pain , chest pain, nausea, vomiting, abdominal pain, back pain, melena, hematochezia , urinary symptoms, numbness, weakness, lymphadenopathy, rash, or other complaints. Source of History: patient, spouse/significant other () Onset: 2 weeks Position: other (global) Quality: other (shortness of breath) Timing: other (persistent ) Modifying Factors (Worsening): exertion Associated Symptoms: + fevers Review of Systems See HPI for pertinent positives and negatives. A total of ten systems were reviewed and were otherwise negative. Past Medical & Surgical Medical Problems: (1) Cancer of supraglottis (2) Cervical stenosis of spinal canal (3) Chronic back pain (4) Chronic low back pain (5) COPD (chronic obstructive pulmonary disease) (6) COPD exacerbation (7) CORONARY ATHEROSCLEROSIS OF [place] CORONARY VESSEL (8) Depression (9) DEPRESSIVE DISORDER NEC (10) FAMILY HISTORY OF OTHER CARDIOVASCULAR DISEASES (11) FAMILY HX-MALIGNANCY NOS (12) Fever (13) HYPERTENSION NOS (14) Hyponatremia (15) Hypothyroidism (16) Lung cancer (17) Lung nodule (18) MALIG ANKIT SUPRAGLOTTIS (19) Pneumonia (20) TOBACCO USE DISORDER Family History Cancer Social History Smoking Status: Former Smoker Alcohol Use: occasionally Drug Use: none Marital Status: single Housing Status: lives with significant other Occupation Status: unemployed, disabled Current/Historical Medications Scheduled Budesonide/Formoterol Fumarate (Symbicort 80/4.5 Inhaler), 2 PUFFS INH BID Cyclobenzaprine Hcl (Flexeril), 10-20 MG PO TID Gabapentin (Gabapentin), 100 MG PO TID Levothyroxine Sodium (Levothyroxine Sodium), 1 TAB PO DAILY Mirtazapine (Mirtazapine), 7.5 MG PO HS Multivitamin (Multivitamin), 1 TAB PO DAILY Naproxen (Aleve), 220 MG PO PRN Omeprazole (Prilosec), 20 MG PO BID Oxycodone Hcl (Oxycodone Hcl), 20 MG PO UD Ranitidine (Zantac), 150 MG PO BID Sertraline (Zoloft), 100 MG PO DAILY Zolpidem Tartrate (Ambien), 5 MG PO HS Scheduled PRN Aspirin (Aspirin), 650 MG PO QAM PRN for Headache Levalbuterol Hcl (Levalbuterol Hcl), 1.25 MG INH TID PRN for SOB/Wheezing Oxycodone Ir (Roxicodone Ir), 10 MG PO TID PRN for Severe Pain Wheat Dextrin (Benefiber), 2 TSP PO BID PRN for Constipation Durable Medical Equipment Nebulizer Machine (Home Use) (Nebulizer Machine (Home Use) ), EA N/A UD Allergies Coded Allergies: NSAIDs (Verified Adverse Reaction, Mild, upset stomach, 07/21/17) Physical Exam Vital Signs Date Time Temp Pulse Resp B/P (MAP) Pulse Ox O2 Delivery O2 Flow Rate FiO2 07/21/17 14:10 Nasal Cannula 4.0 07/21/17 13:56 126 07/21/17 13:33 36.9 126 26 156/95 93 Nasal Cannula 4.0 Physical Exam GENERAL: Awake, alert, ill-appearing, in no distress HENT: Normocephalic, atraumatic. Oropharynx unremarkable. EYES: Normal conjunctiva. Sclera non-icteric. NECK: Supple. No nuchal rigidity. FROM. No JVD. RESPIRATORY: Rales and rhonchi scattered bilaterally. CARDIAC: Tachycardic, normal rhythm. Extremities warm and well perfused. Pulses equal. ABDOMEN: Soft, non-distended. No tenderness to palpation. No rebound or guarding. No masses. RECTAL: Deferred. MUSCULOSKELETAL: Chest examination reveals no tenderness. The back is symmetrical on inspection without obvious abnormality. There is no CVA tenderness to palpation. No joint edema. LOWER EXTREMITIES: Calves are equal size bilaterally and non-tender. No edema. No discoloration. NEURO: Normal sensorium. No sensory or motor deficits noted. SKIN: No rash or jaundice noted. Medical Decision & Procedures ER Provider Diagnostic Interpretation: Radiology results as stated below per my review and radiologist interpretation: CHEST ONE VIEW PORTABLE CLINICAL HISTORY: shortness of breath, COPD COMPARISON STUDY: 06/08/2017 FINDINGS: The cardiac images so contours remain stable. The patient is hyperinflated. Since the prior study, the patient has developed right mid and lower lung zone airspace opacities and left basal airspace opacities. The findings are suspicious for a bilateral pneumonitis. Clinical and radiographic follow-up is recommended. Postsurgical changes are present within the cervical spine.[ IMPRESSION: Interval development of bilateral pulmonary airspace opacities with a lower lung zone predominance. The findings are suspicious for a bilateral pneumonitis. Clinical and radiographic follow-up is recommended. Electronically signed by: Gentry Tsang M.D. 07/21/2017 2:07 PM Laboratory Results 07/21/17 13:55 Red Blood Count 4.38, Mean Corpuscular Volume 79.9, Mean Corpuscular Hemoglobin 26.9, Mean Corpuscular Hemoglobin Concent 33.7, Mean Platelet Volume 8.8, Neutrophils (%) (Auto) 81.4, Lymphocytes (%) (Auto) 10.8, Monocytes (%) (Auto) 5.6, Eosinophils (%) (Auto) 1.4, Basophils (%) (Auto) 0.2, Neutrophils # (Auto) 10.23, Lymphocytes # (Auto) 1.36, Monocytes # (Auto) 0.70, Eosinophils # (Auto) 0.17, Basophils # (Auto) 0.03 07/21/17 13:55 Test 07/21/17 13:55 07/21/17 14:21 07/21/17 15:00 White Blood Count 12.56 K/uL (4.8-10.8) Red Blood Count 4.38 M/uL (4.7-6.1) Hemoglobin 11.8 g/dL (14.0-18.0) Hematocrit 35.0 % (42-52) Mean Corpuscular Volume 79.9 fL (80-100) Mean Corpuscular Hemoglobin 26.9 pg (25-34) Mean Corpuscular Hemoglobin Concent 33.7 g/dl (32-36) Platelet Count 345 K/uL (130-400) Mean Platelet Volume 8.8 fL (7.4-10.4) Neutrophils (%) (Auto) 81.4 % Lymphocytes (%) (Auto) 10.8 % Monocytes (%) (Auto) 5.6 % Eosinophils (%) (Auto) 1.4 % Basophils (%) (Auto) 0.2 % Neutrophils # (Auto) 10.23 K/uL (1.4-6.5) Lymphocytes # (Auto) 1.36 K/uL (1.2-3.4) Monocytes # (Auto) 0.70 K/uL (0.11-0.59) Eosinophils # (Auto) 0.17 K/uL (0-0.5) Basophils # (Auto) 0.03 K/uL (0-0.2) RDW Standard Deviation 43.2 fL (36.4-46.3) RDW Coefficient of Variation 14.8 % (11.5-14.5) Immature Granulocyte % (Auto) 0.6 % Immature Granulocyte # (Auto) 0.07 K/uL (0.00-0.02) Prothrombin Time 10.2 SECONDS (9.0-12.0) Prothromb Time International Ratio 1.0 (0.9-1.1) Activated Partial Thromboplast Time 34.8 SECONDS (21.0-31.0) Partial Thromboplastin Ratio 1.3 Anion Gap 10.0 mmol/L (3-11) Estimated GFR () 119.1 Estimated GFR (Non- 102.7 BUN/Creatinine Ratio 20.6 (10-20) Calcium Level 9.0 mg/dl (8.5-10.1) Troponin I < 0.015 ng/ml (0-0.045) Lactic Acid Level 1.7 mmol/L (0.4-2.0) Influenza Type A (RT-PCR) Neg for Influ A (NEG) Influenza Type A Antigen Neg for Influ A (NEG) Influenza Type B Antigen Neg for Influ B (NEG) Influenza Type B (RT-PCR) Neg for Influ B (NEG) Date/Time Source Procedure Growth Status 07/21/17 14:30 Nasal MRSA DNA Surveillance Screen - Final Specimen Negative for MRSA by DNA Probe Complete Laboratory results reviewed by me Medications Administered Medications (Trade) Dose Ordered Sig/Kirby Route Start Time Stop Time Status Last Admin Dose Admin Albuterol/ Ipratropium (Duoneb) 3 ml ONE STAT INH 07/21/17 13:39 07/21/17 13:42 DC 07/21/17 14:06 3 ML Sodium Chloride 500 ml @ 999 mls/hr Q31M STAT IV 07/21/17 13:55 07/21/17 14:26 DC 07/21/17 14:06 999 MLS/HR Piperacillin Sod/ Tazobactam Sod (Zosyn Iv) 4.5 gm NOW STAT IV 07/21/17 14:06 07/21/17 14:11 DC 07/21/17 14:27 4.5 GM Azithromycin 500 mg/Dextrose 255 ml @ 125 mls/hr ONE STAT IV 07/21/17 14:06 07/21/17 16:08 DC 07/21/17 14:56 125 MLS/HR Vancomycin HCl 1000 mg/Sodium Chloride 270 ml @ 125 mls/hr NOW STAT IV 07/21/17 14:06 07/21/17 16:15 DC 07/21/17 14:46 125 MLS/HR Guaifenesin (Mucinex Contr Rel Tab) 600 mg ONE STAT PO 07/21/17 14:06 07/21/17 14:12 DC 07/21/17 14:46 600 MG Methylprednisolone Sodium Succinate (Solu-Medrol IV) 125 mg NOW STAT IV 07/21/17 14:21 07/21/17 14:23 DC 07/21/17 15:02 125 MG Sodium Chloride 1,000 ml @ 999 mls/hr Q1H1M STAT IV 07/21/17 14:40 07/21/17 15:40 DC 07/21/17 15:49 999 MLS/HR ECG Indication: SOB/dyspnea Rate (beats per minute): 99 Rhythm: normal sinus Findings: no acute ischemic change, left axis deviation, prolonged QT, no ectopy ED Course 1335: The patient was evaluated in room B6. A complete history and physical exam was performed. 1339: Ordered Duoneb 3ml INH. 1355: Ordered Sodium Chloride 500l @ 999 mls/hr IV. 1406: Ordered Mucinex Contr Rel Tab 600mg PO, Vancomycin HCL 1000mg/Sodium Chloride 270ml @ 125 mls/hr IV, Azithromycin 500 mg/Dextrose 255ml @ 125mls/hr IV, and Zosyn 4.5 gm IV. 1421: Ordered Solu-Medrol 125mg IV. 1443: Ordered Sodium Chloride 1000ml @ 999mls/hr IV. 1443: Discussed the patient's case with Dr. Pruett, [facility] [place]. The patient will be evaluated for further treatment and disposition. 1440: Ordered Sodium Chloride 1000ml @ 999 mls/hr IV. Medical Decision Triage Nursing notes reviewed. The patient's presentation and history were concerning for SOB. Etiologies such as pneumonia, COPD, reactive airway disease, CHF, cardiac ischemia, pulmonary embolism, pneumothorax, musculoskeletal, infections, gastrointestinal, as well as others were entertained. The patient was evaluated. He was having hypoxia. Chest x-ray was performed and was grossly abnormal. The patient was given steroids and breathing treatments. Antibiotics were initiated. He was found to be hyponatremic and a slight leukocytosis has been febrile. Further evaluation and management will be necessary in the hospital. Consultation placed with internal medicine. The patient was evaluated in the Emergency Room for treatment. The patient was seen and examined with Dr. Danielle, resident physician. We discussed the case and treatments ordered, reviewed the results, and determine the disposition. Please refer to the resident's note for additional details. I have been directly involved with the management and disposition as well as independently evaluated the patient as documented in this note. Blood Pressure Screening Patient's blood pressure: Elevated blood pressure Blood pressure disposition: Referred to PCP Consults Time Called: 1433 Consulting Physician: Dr. Pruett [facility] [place] Returned Call: [phone] Discussed the patient's case. The patient will be evaluated for further treatment and disposition. Impression Primary Impression: Hypoxia Additional Impressions: Pneumonitis COPD with exacerbation Hyponatremia Scribe Attestation The scribe's documentation has been prepared under my direction and personally reviewed by me in its entirety. I confirm that the note above accurately reflects all work, treatment, procedures, and medical decision making performed by me. Departure Information Dispostion Being Evaluated By Hospitalist Referrals Chapito Milner D.O. (PCP) Patient Instructions My [facility] Problem Qualifiers
[2017-07-21 23:35] VITALS: BP 127/82; PULSE 92; TEMP 36.5; O2SAT 98
[2017-07-21 23:59] VITALS: O2SAT 98
[2017-07-22] VITALS (14 sets, daily range): BP systolic 133–168; BP diastolic 71–83; PULSE 57–93; TEMP 36.4–37; O2SAT 92–98
[2017-07-22] MEDS: LEVALBUTEROL 1.25MG/3ML NEB INH SCH ×3 (01:49→19:11)
[2017-07-22] MEDS: SODIUM CHLORIDE 0.9% 1000ML 1,000 ML IV SCH ×2 (02:04→10:54)
[2017-07-22] MEDS: PIPERACILL/TAZOBAC IV 3.375 GM in DEXTROSE 5% 100ML 100 ML IV SCH ×3 (04:00→20:22)
[2017-07-22] MEDS: OXYCODONE HCL IR 5 MG TAB (IMMEDIATE RELEASE) PO PRN ×2 (04:41→10:55)
[2017-07-22] MEDS: OXYCODONE HCL 40 MG TABCR (OXYCONTIN) PO SCH (05:30)
[2017-07-22] MEDS ORDERED: LEVOTHYROXINE 125 MCG TAB PO SCH (06:00)
[2017-07-22 07:20] LABS: BASO % 0.1 %; BASO ABS # 0.01 K/uL (0-0.2); COMPLETE YES; HEMATOCRIT 32.6 % (42-52); IG% 0.3 %; LYMPH % 7.8 %; LYMPH ABS # 0.62 K/uL (1.2-3.4); MEAN CELL VOLUME 79.5 fL (80-100); MEAN CORPUSCULAR HEMOGLOBIN 26.8 pg (25-34); MEAN CORPUSCULAR HGB CONC 33.7 g/dl (32-36); MONO % 2.9 %; NEUT % 88.9 %; PLATELET COUNT 335 K/uL (130-400); WHITE BLOOD COUNT 7.99 K/uL (4.8-10.8)
[2017-07-22 07:57] LABS: BUN/CREATININE RATIO 18.3 (10-20); CALCIUM 8.8 mg/dl (8.5-10.1); CREATININE 0.61 mg/dl (0.60-1.40); POTASSIUM 3.9 mmol/L (3.5-5.1)
[2017-07-22] MEDS: RANITIDINE HCL 150 MG TAB PO SCH (08:06)
[2017-07-22] MEDS: GUAIFENESIN 600 MG TABCR PO SCH (08:07)
[2017-07-22] MEDS: GABAPENTIN 100 MG CAP PO SCH ×3 (08:07→21:00)
[2017-07-22] MEDS: MULTIVITAMIN TAB PO SCH (08:07)
[2017-07-22] MEDS: SERTRALINE HCL 100 MG TAB PO SCH (08:07)
[2017-07-22] MEDS: CYCLOBENZAPRINE HCL 10 MG TAB PO SCH ×3 (08:07→21:00)
[2017-07-22] MEDS: BUDESONIDE/FORMOTEROL FUMARATE 80/4.5 60 PUFFS/INHALER INH SCH ×2 (08:08→21:50)
[2017-07-22] MEDS: AZITHROMYCIN IV 250 MG in DEXTROSE 5% 250ML 250 ML IV SCH (08:11)
[2017-07-22] MEDS ORDERED: PANTOprazole SOD 40 MG TAB PO SCH (09:00)
[2017-07-22] MEDS ORDERED: ENOXAPARIN 40 MG/0.4 ML SYR SQ ONE (09:58)
--- NOTE | 2017-07-22 09:59 | Progress Note ---
Subjective Date of Service: Jul 22, 2017. Subjective Pt evaluation today including: conversation w/ patient, physical exam, chart review, lab review, review of studies (chest x-ray), review of inpatient medication list Pain: denies any during the visit except for chronic throat pain PO Intake: npo Voiding: no voiding problems tele stable overnight reports having seen Dr. Gaytan - ENT - 2-3 weeks ago in ENT clinic had laryngoscopy due to dysphagia/odynophagia -- was told "everything looked ok " there was suspicion that some of his dysphagia may have been from nerve damage in the setting of cervical spine surgery in the last year he overall "feels much better today" after getting IVF and IV antibiotics denies new complaints Problem List Medical Problems: (1) Chronic low back pain Status: Chronic (2) Confusion Status: Acute (3) COPD with exacerbation Status: Acute (4) Dehydration Status: Acute (5) Hypoxia Status: Acute (6) Hypoxia Status: Acute (7) PNA (pneumonia) Status: Acute (8) Pneumonitis Status: Acute (9) Tachycardia Status: Acute Social History Problems: (1) Status post spinal surgery Status: Acute Review of Systems Constitutional: No fever Respiratory: + cough, No dyspnea at rest, No hemoptysis Cardiac: No chest pain Abdomen: No pain Objective Vital Signs Date Time Temp Pulse Resp B/P (MAP) Pulse Ox O2 Delivery O2 Flow Rate FiO2 07/22/17 08:00 98 Nasal Cannula 4.0 07/22/17 08:00 36.4 93 18 162/81 (108) 98 Nasal Cannula 4.0 07/22/17 07:15 36.4 87 18 133/76 (95) 96 Nasal Cannula 4.0 07/22/17 04:00 98 Nasal Cannula 4.0 07/22/17 03:33 36.4 91 17 162/81 (108) 98 Nasal Cannula 4.0 07/22/17 01:50 89 16 95 Nasal Cannula 4.0 07/21/17 23:59 98 Nasal Cannula 4.0 07/21/17 23:35 36.5 92 16 127/82 (97) 98 Nasal Cannula 4.0 07/21/17 20:00 92 Nasal Cannula 4.0 07/21/17 19:44 36.8 107 20 135/76 (95) 92 Nasal Cannula 4.0 07/21/17 19:06 106 16 95 Nasal Cannula 4.0 07/21/17 17:55 36.3 128 20 165/95 92 Nasal Cannula 4.0 07/21/17 15:51 36.5 128 22 138/84 93 Nasal Cannula 4.0 07/21/17 14:10 Nasal Cannula 4.0 07/21/17 13:56 126 07/21/17 13:33 36.9 126 26 156/95 93 Nasal Cannula 4.0 Physical Exam General Appearance: no apparent distress, + thin ENT: pharynx normal, + pertinent finding (no thrush, MMM, no lesions or tumor/ mass seen) Neck: no JVD, + pertinent finding (scar, right neck; no masses palpated) Respiratory/Chest: no respiratory distress, no accessory muscle use, + rales ( fine - bases), + wheezing (end-exp - very mild) Cardiovascular: no gallop, no murmur, + tachycardia Abdomen: normal bowel sounds, non tender, soft, no organomegaly Extremities: no pedal edema Neurologic/Psychiatric: alert, oriented x 3 Laboratory Results Last 24 Hours Test 07/21/17 13:55 07/21/17 14:21 07/21/17 15:00 07/22/17 06:50 White Blood Count 12.56 K/uL 7.99 K/uL Red Blood Count 4.38 M/uL 4.10 M/uL Hemoglobin 11.8 g/dL 11.0 g/dL Hematocrit 35.0 % 32.6 % Mean Corpuscular Volume 79.9 fL 79.5 fL Mean Corpuscular Hemoglobin 26.9 pg 26.8 pg Mean Corpuscular Hemoglobin Concent 33.7 g/dl 33.7 g/dl Platelet Count 345 K/uL 335 K/uL Mean Platelet Volume 8.8 fL 9.0 fL Neutrophils (%) (Auto) 81.4 % 88.9 % Lymphocytes (%) (Auto) 10.8 % 7.8 % Monocytes (%) (Auto) 5.6 % 2.9 % Eosinophils (%) (Auto) 1.4 % 0.0 % Basophils (%) (Auto) 0.2 % 0.1 % Neutrophils # (Auto) 10.23 K/uL 7.11 K/uL Lymphocytes # (Auto) 1.36 K/uL 0.62 K/uL Monocytes # (Auto) 0.70 K/uL 0.23 K/uL Eosinophils # (Auto) 0.17 K/uL 0.00 K/uL Basophils # (Auto) 0.03 K/uL 0.01 K/uL RDW Standard Deviation 43.2 fL 42.4 fL RDW Coefficient of Variation 14.8 % 14.6 % Immature Granulocyte % (Auto) 0.6 % 0.3 % Immature Granulocyte # (Auto) 0.07 K/uL 0.02 K/uL Prothrombin Time 10.2 SECONDS Prothromb Time International Ratio 1.0 Activated Partial Thromboplast Time 34.8 SECONDS Partial Thromboplastin Ratio 1.3 Sodium Level 125 mmol/L 133 mmol/L Potassium Level 3.5 mmol/L 3.9 mmol/L Chloride Level 92 mmol/L 100 mmol/L Carbon Dioxide Level 23 mmol/L 27 mmol/L Anion Gap 10.0 mmol/L 6.0 mmol/L Blood Urea Nitrogen 13 mg/dl 11 mg/dl Creatinine 0.64 mg/dl 0.61 mg/dl Estimated GFR () 119.1 121.5 Estimated GFR (Non- 102.7 104.8 BUN/Creatinine Ratio 20.6 18.3 Random Glucose 98 mg/dl 117 mg/dl Calcium Level 9.0 mg/dl 8.8 mg/dl Troponin I < 0.015 ng/ml Lactic Acid Level 1.7 mmol/L Influenza Type A (RT-PCR) Neg for Influ A Influenza Type A Antigen Neg for Influ A Influenza Type B Antigen Neg for Influ B Influenza Type B (RT-PCR) Neg for Influ B Est Creatinine Clear Calc Drug Dose 128.5 ml/min Assessment and Plan (1) Bilateral pneumonia (2) COPD (chronic obstructive pulmonary disease) (3) Tachycardia (4) Lung cancer (5) Cancer of supraglottis (6) CORONARY ATHEROSCLEROSIS OF [place] CORONARY VESSEL (7) HYPERTENSION NOS (8) Hypothyroidism (9) Depression (10) Cervical stenosis of spinal canal (11) Chronic low back pain 67yo male with: 1. b/l pneumonia - in light of his severe dysphagia this is suspicious for aspiration. Cannot r/o atypical pneumonia or gram negative. Cont zosyn/zithromax. MRSA swab neg - defer on MRSA coverage for now. Overall stable this am. 2. dysphagia/odynophagia - chronic issue but worsening. NPO until speech consult is done. 3. severe protein calorie malnutrition/weight loss - patient reports he simply doesn't eat because "he can't" (due to #2). Other possibility is that one of his malignancies has returned. Either way will have speech see him and then go from there. If he fails swallow eval he may need artificial nutrition. 4. hyponatremia - improved; was volume depleted due to the above issues. can lower fluid rate to 75cc/hr. 5. chronic hypoxic respiratory failure - due to COPD - stable on home O2 amount. 6. COPD - may have early COPD exacerbation - defer on steroids for now but low threshold for instituting them if needed. Cont nebs, inhalers, etc in meantime. 7. h/o throat cancer - noted; just had direct laryngoscopy 2-3 weeks ago and there was no recurrence; also had biopsies in February - negative for dysplasia. 8. h/o RUL non-small cell lung ca s/p lobectomy 9. h/o LLL non-small cell lung ca s/p high-dose radiation 10. CAD - no ischemic symptoms at this time. 11. HTN - BPs somewhat labile; follow for now. 12. chronic pain syndrome - cervical spine, lumbar spine pain - continue outpatient regimen of meds [facility] 13. hypothyroidism - cont synthroid as is; TSH 05/2017 was compensated. 14. DVT proph - add lovenox 40mg daily. Continued [facility] stay due to: inadequate po fluid intake, multiple IV medications needed Problem Qualifiers (1) Bilateral pneumonia: Pneumonia type: due to unspecified organism Lung location: lower lobe of lung Qualified Codes: J18.9 - Pneumonia, unspecified organism (2) COPD (chronic obstructive pulmonary disease): COPD type: COPD with acute lower respiratory infection Qualified Codes: J44.0 - Chronic obstructive pulmonary disease with acute lower respiratory infection (3) Depression: Depression Type: major depressive disorder Major depression recurrence: recurrent Active/Remission status: in partial remission Qualified Codes: F33.41 - Major depressive disorder, recurrent, in partial remission
--- NOTE | 2017-07-22 12:33 | CONSULTATION REPORT ---
DATE OF CONSULTATION: 07/22/2017 DATE OF CONSULTATION: 07/22/2017 The patient was seen in room 218, bed 1. REASON FOR CONSULTATION: Bilateral pneumonia. HISTORY OF PRESENT ILLNESS: The patient is a 67-year-old male with past medical history of coronary artery disease, non-small cell lung cancer status post right upper lobectomy in May 2016 as well as a left lower lobe nodule which was positive as a non-small cell lung CA which underwent radiation therapy. This is all supraglottic carcinoma status post tumor removal and completion of chemoradiation. The patient presented to [facility] on 07/21/2017 for increasing shortness of breath. The patient apparently was recently admitted to [facility] on 06/06/2017 through 06/09/2017 for hypoxia and diagnosed with pneumonia. The patient reports that he had been poorly for several weeks prior to this with increased cough and congestion. He was admitted during that time and treated with IV antibiotics and prednisone. He states that when he was discharged home his mucus at almost completely cleared up and he was feeling much improved; however, he states that approximately 1 week after discharge he started to feel poorly again and over the past several weeks he has been having increased cough and congestion, and increased mucus production. He states that the mucus that he coughs up is a dark brown in color. He has also noticed some green mucus. He has also noticed some bloody mucus. He was in to see Vanesa Granados,in the office,on 05/2017 at which time he was started on nebulization treatments at home and was advised to continue his Symbicort. Unfortunately the patient did really see much relief from this. The patient is on oxygen at home. Typically at 3.5 liters per minute via nasal cannula. Fortunately, his saturations have not been maintaining above 90% with this setting. The patient reports that as stated earlier the cough has progressively worsened and when the patient went to pulmonary rehab yesterday for an additional evaluation he was evaluated by Dr. Marx and sent directly to the Emergency Department for further evaluation and management. The patient states that over the past week or so he has been much more short of breath. He has been having increased weakness. He has been having fevers off and on with maximum temperature of 100.7. He has also been noticing some night sweats. He has had some chest discomfort along the right side where he had previous thoracotomy done. He states that he has not had any other chest discomfort. He has not had any pleuritic type chest pain. Unfortunately has been having some GI difficulties since his supraglottic carcinoma. He has been having progressive difficulty with swallowing and he has had about a 20 pound weight loss over the last 3 weeks. He has been following with Dr. Sequeira for this at which point he was told that he has essentially some nerve damage and this is what is causing his swallowing difficulty. He does have chronic pain with swallowing. He also had difficulty with choking on foods and liquids. The patient states that he is even having difficulty getting water to go down. He is also choking on pills. He states that apparently he is having a video swallow or swallowing evaluation done today. He has not had any difficulty with his voiding. He has not had any difficulty with swelling in his extremities. No numbness, tingling or weakness in the extremities. When the patient was admitted to the ER he did have chest x-ray showed bilateral pneumonia. White count was 12,000. He was afebrile in the ER. He was tachycardic with a rate of 120. The patient was started on Zithromax and Zosyn. He has not been started on the steroids as of yet. He continues on Symbicort and is getting Xopenex q. 6 hours routinely. 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 The patient did complete radiation chemo therapy February 2010. Significant tobacco use history having quit 1 year ago, hypertension, COPD, depression, GERD, dysphagia, weight loss, cervical stenosis, chronic back pain. FAMILY HISTORY: Includes coronary artery disease and cancer. PAST SURGICAL HISTORY: Includes right upper lobectomy, laryngoscopy, cervical spine surgery, removal of right supraglottic lesion. SOCIAL HISTORY: The patient is a former smoker having smoked 1-2 packs a day for 4-5 years, having quite 1 year ago. Occasional alcohol use. The patient is former [email or web address] having served [employer]. Has never been deployed overseas. 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 CURRENT MEDICATIONS: Include Symbicort 80/4.5 2 puffs twice a day, Flexeril 10 mg 3 times daily, gabapentin 100 mg 3 times daily, levothyroxine dose unknown 1 tablet daily, mirtazapine 7.5 mg nightly, multivitamin 1 daily, naproxen 220 mg as needed, Prilosec 20 mg twice daily, oxycodone 20 mg daily, Zantac 150 mg twice daily, Zoloft 100 mg daily, Ambien 5 mg nightly, Tylenol 650 mg as needed, levalbuterol 1.25 mg via nebulizer 3 times daily as needed for wheezing, oxycodone IR 10 mg 3 times daily as needed, Benefiber 2 teaspoons p.o. twice daily as needed. ALLERGIES: NSAIDS. REVIEW OF SYSTEMS: As above, otherwise unremarkable. PHYSICAL EXAMINATION: GENERAL: The patient is a 67-year-old male lying in bed, does not appear in any acute distress. No accessory muscle usage. He is able to complete sentences without difficulty. He is alert and oriented x3. Interactive and cooperative. Mood is good. Affect is good. VITAL SIGNS: Temperature is 36.9, pulse 93, respirations 22, blood pressure 168/83, pulse ox 97% on 4 liters. HEAD, EYES, EARS, NOSE, AND THROAT: Normocephalic, atraumatic. Pupils are equal, round and reactive to light and accommodation. Extraocular movements are intact. Sclerae is nonicteric. No lid lag or nystagmus noted. MOUTH: [place] moist gingival and buccal mucosa. NECK: Thin. Supple. There is no mass. No adenopathy or bruit noted. CHEST: The patient has some rhonchi in the left base extends about half way up the left side of the chest. The patient does have appreciable rhonchi at the right base, although the right side does seem to clear sooner than the left. No rales appreciated. CARDIOVASCULAR: Regular rate and rhythm. There are no murmurs, gallops or rubs appreciated. ABDOMEN: Bowel sounds are present. Abdomen soft, nontender. No guarding, rigidity or organomegaly. EXTREMITIES: No erythema. No edema, no tenderness. No cyanosis or clubbing noted. NEUROLOGIC: Cranial nerves II-XII are intact. No focal deficit noted. LABORATORY DATA: Lab data for today shows white count down to 7,900, was at 12,500 yesterday. H&H 11.0 and 32.6, Platelet count 335,000. BUN is 11, creatinine 0.61. Influenza negative for A and B. Sputum culture is pending. IMPRESSION: 1. This is a 67-year-old male who returned to the hospital after a previous admission at the end of May for pneumonia. The patient currently has pneumonia again. At this point with basically just readmission and the patient's voiced difficulty swallowing need to rule out aspiration at this time as a potential cause of this. Currently agree with antibiotic choice of Zosyn and Zithromax. Await sputum culture in case we need to do any alterations in the antibiotic regimen. I agree with hospitalist team that we can hold off on steroids at this time. The patient has shown significant improvement from yesterday to today. We will continue to monitor closely. However, if he starts with worsening wheezing or worsening shortness of breath then would not be opposed to starting Solu-Medrol. Also want to make sure we continue aggressive pulmonary toilet to help him clear secretions. 2. History of right upper lobe, left lower lobe non-small cell lung CA. The patient recently had CT image by Dr. Hayes in June of this year. We will continue to follow closely at this time. 3. Chronic obstructive pulmonary disease. The patient currently is on Symbicort and nebulizer. He is to continue this regimen. 4. Chronic hypoxia secondary to acute on chronic respiratory failure. At this point, he is to continue his oxygen use with oxygen adjusted to maintain saturations greater than 90%. Would target the 90-94% range. 5. Dysphagia. Swallowing study and speech consult already ordered. Will await for the results of this. PLAN: Overall plan at this time, the patient is on appropriate antibiotic coverage. Will await sputum culture. The patient is showing significant improvement, so I do not think we need to do anything more aggressive currently; however, with the patient's previous diagnosis of right upper lobe and left lower lobe lung CA as well as his 30 pound weight loss the patient still remains a little bit tenuous and will need to be monitored and at this point will reevaluate the patient in the morning. Patient ans plan reviewed and agreed with. ADOLFO
[2017-07-22] MEDS ORDERED: OXYCODONE HCL 20 MG TABCR (OXYCONTIN) PO SCH (14:00)
--- NOTE | 2017-07-22 14:20 | DIAGNOSTIC IMAGING REPORT ---
VIDEO SWALLOW STUDY CLINICAL HISTORY: Aspiration. Laryngeal cancer. COMPARISON STUDY: CT scan of the neck dated 12/28/2016. Fluoroscopy time: 3.2 minutes. FINDINGS: Fluoroscopic guidance was provided to the Department of Speech Pathology in performing a video swallow study. The patient consumed barium-impregnated pudding, cracker with paste, nectar thick liquid, and thin barium while the swallowing mechanism was observed in real-time. Aspiration was seen with all of the sampled textures. Fusion hardware is identified in the cervical spine. IMPRESSION: Aspiration was seen with all sampled textures. See dedicated speech pathology report for detailed findings and recommendations. Electronically signed by: Alex Taylor M.D. 07/22/2017 2:18 PM Dictated Date/Time: 07/22/2017 2:17 PM
[2017-07-22] MEDS ORDERED: GUAIFENESIN SUGAR FREE 200 MG/10 ML UDC PEG PRN (20:15)
[2017-07-22] MEDS ORDERED: ACETAMINOPHEN IV 650 MG / 65ML IV PRN (20:45)
[2017-07-22] MEDS: ZOLPIDEM TARTRATE 5 MG TAB PO SCH (21:00)
[2017-07-22] MEDS: MIRTAZAPINE TAB 15 MG TAB PO SCH (21:00)
[2017-07-22] MEDS: RANITIDINE HCL SYRUP 150 MG/10 ML UDC PEG SCH (21:00)
[2017-07-22] MEDS: HYDROmorphone INJ 0.5 MG/0.5 ML SYR IV PRN (21:55)
[2017-07-22] MEDS: HYDROmorphone INJ 1 MG/ML SYR IV SCH (22:04)
[2017-07-23] VITALS (15 sets, daily range): BP systolic 145–183; BP diastolic 71–99; PULSE 64–91; TEMP 36.5–36.9; O2SAT 91–98
[2017-07-23] MEDS: LEVALBUTEROL 1.25MG/3ML NEB INH SCH ×4 (01:52→19:32)
[2017-07-23] MEDS: SODIUM CHLORIDE 0.9% 1000ML 1,000 ML IV SCH ×2 (03:16→12:48)
[2017-07-23] MEDS: PIPERACILL/TAZOBAC IV 3.375 GM in DEXTROSE 5% 100ML 100 ML IV SCH ×3 (04:15→20:51)
[2017-07-23] MEDS: HYDROmorphone INJ 1 MG/ML SYR IV SCH ×4 (04:15→23:40)
[2017-07-23 05:53] LABS: BASO % 0.5 %; BASO ABS # 0.03 K/uL (0-0.2); COMPLETE YES; EOS % 1.2 %; HEMATOCRIT 34.8 % (42-52); IG% 0.3 %; LYMPH % 13.3 %; LYMPH ABS # 0.85 K/uL (1.2-3.4); MEAN CELL VOLUME 80.7 fL (80-100); MEAN CORPUSCULAR HEMOGLOBIN 26.7 pg (25-34); MEAN PLATELET VOLUME 8.8 fL (7.4-10.4); MONO % 6.2 %; NEUT % 78.5 %; PLATELET COUNT 363 K/uL (130-400); RED BLOOD COUNT 4.31 M/uL (4.7-6.1); WHITE BLOOD COUNT 6.41 K/uL (4.8-10.8)
[2017-07-23 06:23] LABS: BUN/CREATININE RATIO 14.2 (10-20); CALCIUM 9.1 mg/dl (8.5-10.1); CREATININE 0.6 mg/dl (0.60-1.40); POTASSIUM 3.4 mmol/L (3.5-5.1)
[2017-07-23] MEDS: HYDROmorphone INJ 0.5 MG/0.5 ML SYR IV PRN (08:32)
[2017-07-23] MEDS: BUDESONIDE/FORMOTEROL FUMARATE 80/4.5 60 PUFFS/INHALER INH SCH ×2 (08:32→20:51)
[2017-07-23] MEDS: LEVOTHYROXINE SODIUM INJ 62.5 MCG in SYRINGE 0 ML IV SCH (08:33)
[2017-07-23] MEDS: AZITHROMYCIN IV 250 MG in DEXTROSE 5% 250ML 250 ML IV SCH (08:33)
[2017-07-23] MEDS: RANITIDINE HCL SYRUP 150 MG/10 ML UDC PEG SCH (08:33)
--- NOTE | 2017-07-23 08:33 | Progress Note ---
Subjective Date of Service: Jul 23, 2017. Subjective pt has no new complaints has a rough raspy voice and complaints of painful swallowing. We discussed the possibiltiy of a peg tube twice today and I spoke to Elissa Zazueta, and if pt is in agreement and has maximized pulmonary function we may proceed with Peg placement next week. Problem List Medical Problems: (1) Bilateral pneumonia Status: Acute (2) Chronic low back pain Status: Chronic (3) Confusion Status: Acute (4) COPD with exacerbation Status: Acute (5) Dehydration Status: Acute (6) Hypoxia Status: Acute (7) Hypoxia Status: Acute (8) PNA (pneumonia) Status: Acute (9) Pneumonitis Status: Acute (10) Tachycardia Status: Acute Social History Problems: (1) Status post spinal surgery Status: Acute Review of Systems Constitutional: No fever, No chills Respiratory: + shortness of breath, + dyspnea on exertion, No cough Cardiac: No chest pain, No edema Abdomen: No pain, No nausea, No vomiting, No diarrhea Psychiatric: + depression symptoms, + anxiety Objective Vital Signs Date Time Temp Pulse Resp B/P (MAP) Pulse Ox O2 Delivery O2 Flow Rate FiO2 07/23/17 07:28 36.7 90 20 183/99 (127) 91 Room Air 07/23/17 07:12 64 16 98 Nasal Cannula 4.0 07/23/17 04:00 94 Nasal Cannula 4.0 07/23/17 03:35 36.5 79 20 179/94 (122) 97 4.0 07/23/17 01:53 83 16 93 Nasal Cannula 4.0 07/23/17 00:01 94 Nasal Cannula 4.0 07/22/17 23:33 36.4 89 20 139/80 (99) 94 Nasal Cannula 4.0 07/22/17 20:00 95 Nasal Cannula 4.0 07/22/17 19:37 37.0 68 16 142/71 (94) 95 07/22/17 19:14 57 16 92 Nasal Cannula 4.0 07/22/17 16:11 36.9 74 18 149/80 (103) 98 07/22/17 16:00 Nasal Cannula 4.0 07/22/17 14:23 87 16 96 Nasal Cannula 4.0 07/22/17 13:11 90 97 07/22/17 12:00 98 Nasal Cannula 4.0 07/22/17 12:00 89 07/22/17 10:39 36.9 93 22 168/83 (111) 97 Nasal Cannula 4.0 Physical Exam General Appearance: + mild distress, + thin Eyes: normal inspection, sclerae normal Respiratory/Chest: chest non-tender, + decreased breath sounds, + rhonchi Cardiovascular: regular rate, rhythm, no murmur Abdomen: normal bowel sounds, non tender, soft Extremities: no pedal edema, no calf tenderness Neurologic/Psychiatric: alert, oriented x 3 Laboratory Results Last 24 Hours Test 07/23/17 05:14 White Blood Count 6.41 K/uL Red Blood Count 4.31 M/uL Hemoglobin 11.5 g/dL Hematocrit 34.8 % Mean Corpuscular Volume 80.7 fL Mean Corpuscular Hemoglobin 26.7 pg Mean Corpuscular Hemoglobin Concent 33.0 g/dl Platelet Count 363 K/uL Mean Platelet Volume 8.8 fL Neutrophils (%) (Auto) 78.5 % Lymphocytes (%) (Auto) 13.3 % Monocytes (%) (Auto) 6.2 % Eosinophils (%) (Auto) 1.2 % Basophils (%) (Auto) 0.5 % Neutrophils # (Auto) 5.03 K/uL Lymphocytes # (Auto) 0.85 K/uL Monocytes # (Auto) 0.40 K/uL Eosinophils # (Auto) 0.08 K/uL Basophils # (Auto) 0.03 K/uL RDW Standard Deviation 43.4 fL RDW Coefficient of Variation 14.6 % Immature Granulocyte % (Auto) 0.3 % Immature Granulocyte # (Auto) 0.02 K/uL Sodium Level 138 mmol/L Potassium Level 3.4 mmol/L Chloride Level 103 mmol/L Carbon Dioxide Level 29 mmol/L Anion Gap 7.0 mmol/L Blood Urea Nitrogen 9 mg/dl Creatinine 0.60 mg/dl Est Creatinine Clear Calc Drug Dose 130.7 ml/min Estimated GFR () 122.3 Estimated GFR (Non- 105.5 BUN/Creatinine Ratio 14.2 Random Glucose 86 mg/dl Calcium Level 9.1 mg/dl Assessment and Plan (1) Bilateral pneumonia Assessment & Plan: , zosyn and azithromycin - Pulmonary consulted (2) COPD (chronic obstructive pulmonary disease) Permanent Comment: is on home oxygen Last Edited By: Sterling Tan on Jul 23, 2017 08:51 (3) Tachycardia (4) Lung cancer (5) Cancer of supraglottis (6) CORONARY ATHEROSCLEROSIS OF [place] CORONARY VESSEL (7) HYPERTENSION NOS (8) Hypothyroidism (9) Depression (10) Cervical stenosis of spinal canal (11) Chronic low back pain Permanent Comment: does see pain management thru [facility] Last Edited By: Sterling Lane Britney on Jul 23, 2017 08:52 67yo M with bilateral pneumonia influencing his chronic respiratory failure from COPD, and severe protein calorie malnutrition due to dysphagia from previous treatment of his throat cancer. b/l pneumonia - suspicious for aspiration. Cannot r/o atypical pneumonia or gram negative. Cont zosyn/zithromax. speech therapy feels is at high risk for aspiration and recommends PEG dysphagia/odynophagia - chronic issue but worsening. NPO until peg placement, limited by anesthesia eval for sedation, consider next week severe protein calorie malnutrition/weight loss - patient reports difficulty eating, will keep npo start ppn hyponatremia - improved chronic hypoxic respiratory failure - due to COPD - stable on home O2 amount. COPD - nebs, inhalers, etc in meantime. h/o throat cancer - noted; just had direct laryngoscopy 2-3 weeks ago and there was no recurrence; also had biopsies in February - negative for dysplasia. h/o RUL non-small cell lung ca s/p lobectomy, plus h/o LLL non-small cell lung ca s/p high-dose radiation CAD - no ischemic symptoms at this time. HTN - BPs somewhat labile; follow for now. chronic pain syndrome - cervical spine, lumbar spine pain - continue outpatient regimen of meds (gets these thru [facility] system). hypothyroidism - cont synthroid as is; TSH 05/2017 was compensated. DVT proph - add lovenox 40mg daily. Problem Qualifiers (1) Bilateral pneumonia: Pneumonia type: due to unspecified organism Lung location: lower lobe of lung Qualified Codes: J18.9 - Pneumonia, unspecified organism (2) COPD (chronic obstructive pulmonary disease): COPD type: COPD with acute lower respiratory infection Qualified Codes: J44.0 - Chronic obstructive pulmonary disease with acute lower respiratory infection (3) Depression: Depression Type: major depressive disorder Major depression recurrence: recurrent Active/Remission status: in partial remission Qualified Codes: F33.41 - Major depressive disorder, recurrent, in partial remission
[2017-07-23] MEDS: CYCLOBENZAPRINE HCL 10 MG TAB PO SCH ×2 (08:34→14:52)
[2017-07-23] MEDS: ENOXAPARIN 40 MG/0.4 ML SYR SQ SCH (08:34)
[2017-07-23] MEDS: MULTIVITAMIN TAB PO SCH (08:35)
[2017-07-23] MEDS: SERTRALINE HCL 100 MG TAB PO SCH (08:35)
[2017-07-23] MEDS: GABAPENTIN 100 MG CAP PO SCH ×2 (08:35→14:52)
[2017-07-23] MEDS ORDERED: LANSOPRAZOLE SOLUTAB 30 MG PEG SCH (09:00)
--- NOTE | 2017-07-23 10:25 | Gastrointestinal Consultation ---
Gastrointestinal Consultation Date of Consultation: Jul 23, 2017 Attending Physician: Marcia Consulting Physician: Americo Reason for Consultation: evalaute for PEG History of Present Illness Patient is a 67 year old male w/ PMH significant for supraglottic carcinoma s/p resection, lung CA, COPD, dysphagia and others listed below who presented through the ED for evaluation of weight loss and change in respiratory status - GI was consulted for evaluation of PEG tube. Pt was seen and evaluated, chart reviewed. He notes long standing history of dysphagia dating back a few years. This has acutely worsened in February since cervical spine surgery. He notes he has been evaluated by ENT who suggest nerves were damaged. Endorses difficulty swallowing both solid and liquids, with frequent episodes of choking. No abdominal pain, nausea, vomiting. Moves his bowels every other day, no black or bloody stools. Notes about 20 lb unintentional weight loss. Today, no fever, chills, CP. Continues to have SOB, although he tells me improved from yesterday. Video swallow 07/22/17: Aspiration was seen with all sampled textures Chest XR 07/21/17: Interval development of bilateral pulmonary airspace opacities with a lower lung zone predominance. The findings are suspicious for a bilateral pneumonitis. Clinical and radiographic follow-up is recommended. EGD 04/23/16: Extrinsic compression in the upper third of the esophagus. There is no ring, esophagitis, or evidence of XRT stricture. Normal stomach. Normal examined duodenum. 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, lung CA, dysphagia, back pain, spinal stenosis, CAD, HTN Past Surgical History: EGD, colonoscopy, cervical spine surgery, lobectomy, laryngoscopy, resection of right supraglottic lesion Family History Cancer Social History Smoking Status: Former Smoker Alcohol Use: occasionally Drug Use: none Marital Status: single Housing Status: lives with significant other Occupation Status: unemployed, disabled Allergies Coded Allergies: NSAIDs (Verified Adverse Reaction, Mild, upset stomach, 07/21/17) Current Medications Home Meds and Scripts Medications Dose Route/Sig Max Daily Dose Days Date Category Dose Instructions Oxycodone Hcl 20 Mg Tab 20 Mg PO UD 07/21/17 Reported Take 40 mg QAM, 20 mg in early afternoon, and 40 mg in evening Roxicodone Ir (Oxycodone HCl) 5 Mg Tab 10 Mg PO TID PRN 07/21/17 Reported Take along with oxycontin ER Symbicort 80/4.5 Inhaler (Budesonide/Formoterol Fumarate) Unknown Strength Aero 2 Puffs INH BID 07/21/17 Reported Nebulizer Machine (Home Use) (Nebulizer Machine (Home Use)) Mis Ea N/A UD 06/09/17 Rx Levalbuterol Hcl 1.25 Mg/3 Ml Neb 1.25 Mg INH TID PRN 30 06/09/17 Rx Aleve (Naproxen) 220 Mg Tab 220 Mg PO PRN 06/06/17 Reported Gabapentin 100 Mg Cap 100 Mg PO TID 06/06/17 Reported Levothyroxine Sodium 125 Mcg Tab 1 Tab PO DAILY 06/06/17 Reported Mirtazapine 15 Mg Tab 7.5 Mg PO HS 05/13/17 Reported Prilosec (Omeprazole) 20 Mg Capcr 20 Mg PO BID 06/03/16 Reported Benefiber (Wheat Dextrin) 1 Tab Tab 2 Tsp PO BID PRN 12/18/15 Reported Zantac (Ranitidine HCl) 150 Mg Tab 150 Mg PO BID 12/18/15 Reported Aspirin 325 Mg Tab 650 Mg PO QAM PRN 03/02/14 Reported Flexeril (Cyclobenzaprine Hcl) 10 Mg Tab 10-20 Mg PO TID 03/02/14 Reported Ambien (Zolpidem Tartrate) 10 Mg Tab 5 Mg PO HS 05/25/13 Reported Multivitamin (Multivitamins) Tab 1 Tab PO DAILY 04/02/10 Reported Zoloft (Sertraline HCl) 100 Mg Tab 100 Mg PO DAILY 04/07/09 Reported Review of Systems Constitutional: No fever, No chills Respiratory: + cough, + shortness of breath Cardiac: No chest pain Abdomen: + dysphagia, No pain, No nausea, No vomiting, No diarrhea, No constipation, No GI bleeding Physical Exam Date Time Temp Pulse Resp B/P (MAP) Pulse Ox O2 Delivery O2 Flow Rate FiO2 07/23/17 08:00 98 Nasal Cannula 4.0 07/23/17 07:28 36.7 90 20 183/99 (127) 91 Room Air 07/23/17 07:12 64 16 98 Nasal Cannula 4.0 07/23/17 04:00 94 Nasal Cannula 4.0 07/23/17 03:35 36.5 79 20 179/94 (122) 97 4.0 07/23/17 01:53 83 16 93 Nasal Cannula 4.0 07/23/17 00:01 94 Nasal Cannula 4.0 07/22/17 23:33 36.4 89 20 139/80 (99) 94 Nasal Cannula 4.0 07/22/17 20:00 95 Nasal Cannula 4.0 07/22/17 19:37 37.0 68 16 142/71 (94) 95 07/22/17 19:14 57 16 92 Nasal Cannula 4.0 07/22/17 16:11 36.9 74 18 149/80 (103) 98 07/22/17 16:00 Nasal Cannula 4.0 07/22/17 14:23 87 16 96 Nasal Cannula 4.0 07/22/17 13:11 90 97 07/22/17 12:00 98 Nasal Cannula 4.0 07/22/17 12:00 89 07/22/17 10:39 36.9 93 22 168/83 (111) 97 Nasal Cannula 4.0 General Appearance: no apparent distress, + pertinent finding (wearing o2) Eyes: PERRL ENT: hearing grossly normal Neck: supple Respiratory/Chest: normal breath sounds, no respiratory distress, no accessory muscle use, + decreased breath sounds Cardiovascular: regular rate, rhythm Abdomen: normal bowel sounds, non tender, soft, no organomegaly Neurologic/Psych: alert, normal mood/affect, oriented x 3 Skin: normal color Laboratory Results Last 24 Hours Test 07/23/17 05:14 White Blood Count 6.41 K/uL Red Blood Count 4.31 M/uL Hemoglobin 11.5 g/dL Hematocrit 34.8 % Mean Corpuscular Volume 80.7 fL Mean Corpuscular Hemoglobin 26.7 pg Mean Corpuscular Hemoglobin Concent 33.0 g/dl Platelet Count 363 K/uL Mean Platelet Volume 8.8 fL Neutrophils (%) (Auto) 78.5 % Lymphocytes (%) (Auto) 13.3 % Monocytes (%) (Auto) 6.2 % Eosinophils (%) (Auto) 1.2 % Basophils (%) (Auto) 0.5 % Neutrophils # (Auto) 5.03 K/uL Lymphocytes # (Auto) 0.85 K/uL Monocytes # (Auto) 0.40 K/uL Eosinophils # (Auto) 0.08 K/uL Basophils # (Auto) 0.03 K/uL RDW Standard Deviation 43.4 fL RDW Coefficient of Variation 14.6 % Immature Granulocyte % (Auto) 0.3 % Immature Granulocyte # (Auto) 0.02 K/uL Sodium Level 138 mmol/L Potassium Level 3.4 mmol/L Chloride Level 103 mmol/L Carbon Dioxide Level 29 mmol/L Anion Gap 7.0 mmol/L Blood Urea Nitrogen 9 mg/dl Creatinine 0.60 mg/dl Est Creatinine Clear Calc Drug Dose 130.7 ml/min Estimated GFR () 122.3 Estimated GFR (Non- 105.5 BUN/Creatinine Ratio 14.2 Random Glucose 86 mg/dl Calcium Level 9.1 mg/dl Impression Patient is a 67 year old male w/ dysphagia and COPD admitted w/ suspected aspiration pneumonia - GI asked to evaluate the pt for PEG placement. Based off of recent swallow study, pt cannot tolerate PO. Risks/benefits of PEG were discussed with pt including aspiration from PEG. He notes he had a PEG tube in the past and is unsure of he would like PEG again. Discussed w/o PEG he is very high risk for recurrent pneumonia, he verbalized understanding but would like to take some time to discuss PEG w/ loved ones. Plan - Pneumonia - GI would recommend to continue current ABX therapy for suspected aspiration pneumonia - Appreciate ANIMAL ECOLOGIST recommendations - GI will place PEG if pt wishes to proceed w/ PEG tube once he is stable from a respiratory standpoint - Unintentional weight loss - Recommend CT/ABD pelvis w/ IV & PO contrast - EGD/Colonoscopy outpatient GI will watch peripherally. Please call with any questions, concerns or if pt would like to proceed with PEG placement and is stable from a respiratory standpoint.
[2017-07-23] MEDS: PANTOprazole INJ 40 MG in SYRINGE 0 ML IV SCH (10:34)
--- NOTE | 2017-07-23 10:57 | Pulmonology Progress Note ---
Pulmonary Progress Note Date of Service Jul 23, 2017. Attending Dr. Winter Subjective Patient notes dramatic improvement at this time in his reparatory status Objective Able to sit up in bed and have a conversation with no tachypnia or use of accessory muscles VS: I/Os: -336cc SaO2%: 91-98% FiO2: 4Lnc RR: 16-20 HR: 64-90 Resp: bilateral lower lobe rhonchi R>L Card: S1 S2 2/6 systolic murmur LUSB Abd: + BS soft non-tender Ext: no c/c/e Studies WBC: 13K(Neutro#:>10.23)6K (Neutro#:5.03) PLT: 363K INR: 1.3 PT: 10.2 APTT: 34.8 Na: 125---[id number] K: 3.4 Influ A&B (Ag & PCR) Negative Sputum: Heavy Normal Ana MRSA DNA Nasal: Negative CXR: diffuse RLL infiltrate Video Swallow: Aspiration noted with all sampled textures Speech Pathology Evaluation o Mild Oral Dysphagia and Profound Pharyngeal Dysphagia o NPO o Consider PEG tube placment Active pulmonary Medications: 1. Pantoprazole 40mg 2. Lovenox 40mg sc 3. Robitussin 200mg prn peg 4. Azithromycin 250mg 5. Symbicort 80/4.5 2 puffs BID 6. Xopenex 1.25mg Neb q6 7. 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 At this time he agrees to move forward with a PEG tube placement. He notes this doesn't stop aspiration and we spoke of the possible need of a tracheostomy in the future if aspiration causes lobar collapse. 2) COPD: continue current medications 3) Hypoxemia: doing well on 4L 4) ID will continue Zosyn but will stop Azithromycin at this time. Data Medications: Current Inpatient Medications Medications (Trade) Dose Ordered Sig/Kirby Route Start Time Stop Time Status Last Admin Dose Admin Sodium Chloride 1,000 ml @ 75 mls/hr [id number] IV 07/21/17 18:00 08/20/17 17:59 07/23/17 03:16 75 MLS/HR Magnesium Hydroxide (Milk Of Magnesia Susp) 30 ml Q12H PRN PO 07/21/17 15:45 08/20/17 15:44 Ondansetron HCl (Zofran Inj) 4 mg Q6H PRN IV 07/21/17 15:45 08/20/17 15:44 Polyethylene (Miralax Powder Packet) 17 gm DAILY PRN PO 07/21/17 15:45 08/20/17 15:44 Aspirin (Ecotrin Tab) 650 mg QAM PRN PO 07/21/17 15:45 08/20/17 15:44 Cyclobenzaprine HCl (Flexeril Tab) 10 mg TID PO 07/21/17 21:00 08/20/17 20:59 07/23/17 08:34 10 MG Gabapentin (Neurontin Cap) 100 mg TID PO 07/21/17 21:00 08/20/17 20:59 07/23/17 08:35 100 MG Multivitamins (Multivitamin Tab) 1 tab DAILY PO 07/22/17 09:00 08/21/17 08:59 07/23/17 08:35 1 TAB Sertraline HCl (Zoloft Tab) 100 mg DAILY PO 07/22/17 09:00 08/21/17 08:59 07/23/17 08:35 100 MG Budesonide/ Formoterol Fumarate (Symbicort 80/ 4.5 Inh) 2 puffs BID INH 07/21/17 21:00 08/20/17 20:59 07/23/17 08:32 2 PUFFS Mirtazapine (Remeron Tab) 7.5 mg HS PO 07/21/17 21:00 08/20/17 20:59 07/21/17 19:58 7.5 MG Zolpidem Tartrate (Ambien Tab) 5 mg HS PO 07/21/17 21:00 08/20/17 20:59 07/21/17 21:39 5 MG Azithromycin 250 mg/Dextrose 252.5 ml @ 125 mls/hr Q24H IV 07/22/17 09:00 07/27/17 11:02 07/23/17 08:33 125 MLS/HR Levalbuterol (Xopenex 1.25MG/ 3ML Neb) 1.25 mg Q6R INH 07/21/17 21:00 08/20/17 20:59 07/23/17 07:12 1.25 MG Piperacillin Sod/ Tazobactam Sod (Consult) 1 ea UD PRN N/A 07/21/17 18:00 08/20/17 17:59 Piperacillin Sod/ Tazobactam Sod 3.375 gm/Dextrose 115 ml @ 28.75 mls/ hr Q8H IV 07/21/17 20:00 07/28/17 19:59 07/23/17 04:15 28.75 MLS/HR Enoxaparin Sodium (Lovenox Inj) 40 mg QAM SQ 07/23/17 09:00 08/22/17 08:59 07/23/17 08:34 40 MG Hydromorphone HCl (Dilaudid Inj) 0.5 mg Q4H PRN IV 07/22/17 19:30 08/05/17 19:29 07/23/17 08:32 0.5 MG Hydromorphone HCl (Dilaudid Inj) 1 mg Q6H IV 07/22/17 22:00 08/05/17 21:59 07/23/17 10:34 1 MG Levothyroxine Sodium 62.5 mcg/ Syringe 3.125 ml @ 2 mls/min DAILY@09 IV 07/23/17 09:00 08/22/17 08:59 07/23/17 08:33 2 MLS/MIN Guaifenesin (Robitussin Sugar Free Syrup) 200 mg Q4H PRN PEG 07/22/17 20:15 08/21/17 20:14 Ranitidine HCl (zANTac SYRUP) 150 mg BID PEG 07/22/17 21:00 08/21/17 20:59 07/23/17 08:33 150 MG Pantoprazole Sodium 40 mg/ Syringe 10 ml @ 5 mls/min DAILY@11 IV 07/23/17 11:00 08/22/17 10:59 07/23/17 10:34 5 MLS/MIN Acetaminophen 650 mg/Empty Bag 65 ml @ 260 mls/hr Q4H PRN IV 07/22/17 20:45 08/21/17 20:44 Vital Signs: Date Time Temp Pulse Resp B/P (MAP) Pulse Ox O2 Delivery O2 Flow Rate FiO2 07/23/17 08:00 98 Nasal Cannula 4.0 07/23/17 07:28 36.7 90 20 183/99 (127) 91 Room Air 07/23/17 07:12 64 16 98 Nasal Cannula 4.0 07/23/17 04:00 94 Nasal Cannula 4.0 07/23/17 03:35 36.5 79 20 179/94 (122) 97 4.0 07/23/17 01:53 83 16 93 Nasal Cannula 4.0 07/23/17 00:01 94 Nasal Cannula 4.0 07/22/17 23:33 36.4 89 20 139/80 (99) 94 Nasal Cannula 4.0 07/22/17 20:00 95 Nasal Cannula 4.0 07/22/17 19:37 37.0 68 16 142/71 (94) 95 07/22/17 19:14 57 16 92 Nasal Cannula 4.0 07/22/17 16:11 36.9 74 18 149/80 (103) 98 07/22/17 16:00 Nasal Cannula 4.0 07/22/17 14:23 87 16 96 Nasal Cannula 4.0 07/22/17 13:11 90 97 07/22/17 12:00 98 Nasal Cannula 4.0 07/22/17 12:00 89 Laboratory Results: Last 24 Hours Test 07/23/17 05:14 White Blood Count 6.41 K/uL Red Blood Count 4.31 M/uL Hemoglobin 11.5 g/dL Hematocrit 34.8 % Mean Corpuscular Volume 80.7 fL Mean Corpuscular Hemoglobin 26.7 pg Mean Corpuscular Hemoglobin Concent 33.0 g/dl Platelet Count 363 K/uL Mean Platelet Volume 8.8 fL Neutrophils (%) (Auto) 78.5 % Lymphocytes (%) (Auto) 13.3 % Monocytes (%) (Auto) 6.2 % Eosinophils (%) (Auto) 1.2 % Basophils (%) (Auto) 0.5 % Neutrophils # (Auto) 5.03 K/uL Lymphocytes # (Auto) 0.85 K/uL Monocytes # (Auto) 0.40 K/uL Eosinophils # (Auto) 0.08 K/uL Basophils # (Auto) 0.03 K/uL RDW Standard Deviation 43.4 fL RDW Coefficient of Variation 14.6 % Immature Granulocyte % (Auto) 0.3 % Immature Granulocyte # (Auto) 0.02 K/uL Sodium Level 138 mmol/L Potassium Level 3.4 mmol/L Chloride Level 103 mmol/L Carbon Dioxide Level 29 mmol/L Anion Gap 7.0 mmol/L Blood Urea Nitrogen 9 mg/dl Creatinine 0.60 mg/dl Est Creatinine Clear Calc Drug Dose 130.7 ml/min Estimated GFR () 122.3 Estimated GFR (Non- 105.5 BUN/Creatinine Ratio 14.2 Random Glucose 86 mg/dl Calcium Level 9.1 mg/dl
[2017-07-23] MEDS: MIRTAZAPINE TAB 15 MG TAB PO SCH (21:00)
[2017-07-23] MEDS: LORAZEPAM 2 MG/ML 1 ML VIAL IV PRN (23:40)
[2017-07-24] VITALS (10 sets, daily range): BP systolic 152–176; BP diastolic 81–106; PULSE 84–104; TEMP 36.5–36.8; O2SAT 91–96
[2017-07-24] MEDS: SODIUM CHLORIDE 0.9% 1000ML 1,000 ML IV SCH ×2 (01:17→16:11)
[2017-07-24] MEDS: LEVALBUTEROL 1.25MG/3ML NEB INH SCH ×4 (02:06→19:07)
[2017-07-24] MEDS: PIPERACILL/TAZOBAC IV 3.375 GM in DEXTROSE 5% 100ML 100 ML IV SCH ×3 (05:28→20:25)
[2017-07-24] MEDS: HYDROmorphone INJ 1 MG/ML SYR IV SCH ×4 (05:28→22:35)
[2017-07-24] MEDS: MULTIVITAMIN TAB PO SCH (07:49)
[2017-07-24 07:50] LABS: BASO % 0.8 %; BASO ABS # 0.04 K/uL (0-0.2); COMPLETE YES; EOS % 2.6 %; HEMATOCRIT 36.1 % (42-52); IG% 0.8 %; LYMPH % 22.2 %; LYMPH ABS # 1.18 K/uL (1.2-3.4); MEAN CORPUSCULAR HEMOGLOBIN 26.8 pg (25-34); MEAN CORPUSCULAR HGB CONC 33.5 g/dl (32-36); MEAN PLATELET VOLUME 8.7 fL (7.4-10.4); MONO % 6.6 %; PLATELET COUNT 344 K/uL (130-400); RED BLOOD COUNT 4.51 M/uL (4.7-6.1); WHITE BLOOD COUNT 5.32 K/uL (4.8-10.8)
[2017-07-24] MEDS ORDERED: TPN/PPN CONSULT PHARMACY PRN ×2 (08:15→08:30)
[2017-07-24] MEDS: ENOXAPARIN 40 MG/0.4 ML SYR SQ SCH (08:52)
[2017-07-24] MEDS: LEVOTHYROXINE SODIUM INJ 62.5 MCG in SYRINGE 0 ML IV SCH (09:20)
[2017-07-24 10:36] LABS: BUN/CREATININE RATIO 10.9 (10-20); CALCIUM 9.2 mg/dl (8.5-10.1); CREATININE 0.54 mg/dl (0.60-1.40); MAGNESIUM 1.8 mg/dl (1.8-2.4); POTASSIUM 3.6 mmol/L (3.5-5.1)
[2017-07-24 10:44] LABS: PREALBUMIN 15.2 mg/dl (20-40)
[2017-07-24] MEDS: PANTOprazole INJ 40 MG in SYRINGE 0 ML IV SCH (10:59)
[2017-07-24] MEDS: BUDESONIDE/FORMOTEROL FUMARATE 80/4.5 60 PUFFS/INHALER INH SCH ×2 (11:55→22:34)
--- NOTE | 2017-07-24 12:27 | Pulmonology Progress Note ---
Pulmonary Progress Note Date of Service Jul 24, 2017. Attending Dr. Winter Subjective Patient doing better today notes improvement in his respiratory status daily. Objective Patient is sitting up in bed able to ambulate did not showing signs of respiratory insufficiency, no signs of tachypnea able to complete full sentences VS: SaO2%: 94-96 % FiO2: 4 liters RR: 18-20 HR: 84-99 Resp: Decreased breath sounds bilaterally with notable rhonchi at the bases Card: S1-S2 distant heart sounds regular rate and rhythm Abd: Positive bowel sounds soft nontender Ext: No clubbing cyanosis or edema noted Active pulmonary Medications: 1. Robitussin 2. Symbicort 80/4.5 2 puffs b.i.d. 3. Zosyn IV Assessment & Plan 67-year-old male admitted for respiratory distress secondary to chronic aspiration: 1) Aspiration: Patient moving forward with the help of the Gastroenterology team with PEG placement. 2) COPD: Patient doing well off oral and/or parental steroids. Continue current inhaler regimen. 3) Hypoxemia: doing well on 4L 4) ID: Patient currently on Zosyn would finish a 7-10 day course of antibiotics moving to Augmentin. Pulmonary team will sign off is the patient is doing well in his shortness of breath was secondary to chronic aspiration. Data Medications: Current Inpatient Medications Medications (Trade) Dose Ordered Sig/Kirby Route Start Time Stop Time Status Last Admin Dose Admin Sodium Chloride 1,000 ml @ 75 mls/hr [id number] IV 07/21/17 18:00 07/24/17 15:59 07/24/17 01:17 75 MLS/HR Magnesium Hydroxide (Milk Of Magnesia Susp) 30 ml Q12H PRN PO 07/21/17 15:45 08/20/17 15:44 Ondansetron HCl (Zofran Inj) 4 mg Q6H PRN IV 07/21/17 15:45 08/20/17 15:44 Polyethylene (Miralax Powder Packet) 17 gm DAILY PRN PO 07/21/17 15:45 08/20/17 15:44 Aspirin (Ecotrin Tab) 650 mg QAM PRN PO 07/21/17 15:45 08/20/17 15:44 Cyclobenzaprine HCl (Flexeril Tab) 10 mg TID PO 07/21/17 21:00 08/20/17 20:59 Future Hold 07/23/17 14:52 10 MG Gabapentin (Neurontin Cap) 100 mg TID PO 07/21/17 21:00 08/20/17 20:59 Future Hold 07/23/17 14:52 100 MG Multivitamins (Multivitamin Tab) 1 tab DAILY PO 07/22/17 09:00 08/21/17 08:59 07/23/17 08:35 1 TAB Sertraline HCl (Zoloft Tab) 100 mg DAILY PO 07/22/17 09:00 08/21/17 08:59 Future Hold 07/23/17 08:35 100 MG Budesonide/ Formoterol Fumarate (Symbicort 80/ 4.5 Inh) 2 puffs BID INH 07/21/17 21:00 08/20/17 20:59 07/24/17 11:55 2 PUFFS Mirtazapine (Remeron Tab) 7.5 mg HS PO 07/21/17 21:00 08/20/17 20:59 07/21/17 19:58 7.5 MG Zolpidem Tartrate (Ambien Tab) 5 mg HS PO 07/21/17 21:00 08/20/17 20:59 Future Hold 07/21/17 21:39 5 MG Levalbuterol (Xopenex 1.25MG/ 3ML Neb) 1.25 mg Q6R INH 07/21/17 21:00 08/20/17 20:59 07/24/17 06:49 1.25 MG Piperacillin Sod/ Tazobactam Sod (Consult) 1 ea UD PRN N/A 07/21/17 18:00 08/20/17 17:59 Piperacillin Sod/ Tazobactam Sod 3.375 gm/Dextrose 115 ml @ 28.75 mls/ hr Q8H IV 07/21/17 20:00 07/28/17 19:59 07/24/17 11:59 28.75 MLS/HR Enoxaparin Sodium (Lovenox Inj) 40 mg QAM SQ 07/23/17 09:00 08/22/17 08:59 07/24/17 08:52 40 MG Hydromorphone HCl (Dilaudid Inj) 0.5 mg Q4H PRN IV 07/22/17 19:30 08/05/17 19:29 07/23/17 08:32 0.5 MG Hydromorphone HCl (Dilaudid Inj) 1 mg Q6H IV 07/22/17 22:00 08/05/17 21:59 07/24/17 10:59 1 MG Levothyroxine Sodium 62.5 mcg/ Syringe 3.125 ml @ 2 mls/min DAILY@09 IV 07/23/17 09:00 08/22/17 08:59 07/24/17 09:20 2 MLS/MIN Guaifenesin (Robitussin Sugar Free Syrup) 200 mg Q4H PRN PEG 07/22/17 20:15 08/21/17 20:14 Ranitidine HCl (zANTac SYRUP) 150 mg BID PEG 07/22/17 21:00 08/21/17 20:59 Future Hold 07/23/17 08:33 150 MG Pantoprazole Sodium 40 mg/ Syringe 10 ml @ 5 mls/min DAILY@11 IV 07/23/17 11:00 08/22/17 10:59 07/24/17 10:59 5 MLS/MIN Acetaminophen 650 mg/Empty Bag 65 ml @ 260 mls/hr Q4H PRN IV 07/22/17 20:45 08/21/17 20:44 Lorazepam (Ativan Inj) 1 mg QPM PRN IV 07/23/17 20:15 08/22/17 20:14 07/23/17 23:40 1 MG Dextrose 1,000 ml @ 0 mls/hr Q0M PRN IV 07/24/17 16:00 08/23/17 15:59 Miscellaneous Information (Pharmacy Tpn/ Ppn Consult Active) 1 ea UD PRN N/A 07/24/17 08:30 08/23/17 08:29 Nutrition (Parenteral) 0 ml @ 0 mls/hr TODAY@1600 IV 07/24/17 16:00 07/25/17 15:59 Vital Signs: Date Time Temp Pulse Resp B/P (MAP) Pulse Ox O2 Delivery O2 Flow Rate FiO2 07/24/17 11:04 36.6 94 18 176/91 (119) 96 4.0 07/24/17 08:00 Nasal Cannula 4.0 07/24/17 07:39 36.8 99 20 169/81 (110) 94 4.0 07/24/17 06:50 92 18 94 Nasal Cannula 4.0 07/24/17 04:06 36.8 84 20 155/106 (122) 94 4.0 07/24/17 04:00 Nasal Cannula 4.0 07/24/17 00:00 Nasal Cannula 4.0 07/23/17 23:40 36.5 76 17 145/81 (102) 91 Room Air 07/23/17 20:00 Nasal Cannula 4.0 07/23/17 19:32 88 16 97 Nasal Cannula 4.0 07/23/17 18:54 36.9 82 20 161/89 (113) 96 Nasal Cannula 4.0 07/23/17 16:00 98 Nasal Cannula 4.0 07/23/17 15:13 36.6 89 20 161/93 (115) 98 Nasal Cannula 4.0 07/23/17 14:49 91 91 Laboratory Results: Last 24 Hours Test 07/23/17 17:56 07/24/17 07:23 07/24/17 09:31 07/24/17 11:24 Bedside Glucose 108 mg/dl 77 mg/dl White Blood Count 5.32 K/uL Red Blood Count 4.51 M/uL Hemoglobin 12.1 g/dL Hematocrit 36.1 % Mean Corpuscular Volume 80.0 fL Mean Corpuscular Hemoglobin 26.8 pg Mean Corpuscular Hemoglobin Concent 33.5 g/dl Platelet Count 344 K/uL Mean Platelet Volume 8.7 fL Neutrophils (%) (Auto) 67.0 % Lymphocytes (%) (Auto) 22.2 % Monocytes (%) (Auto) 6.6 % Eosinophils (%) (Auto) 2.6 % Basophils (%) (Auto) 0.8 % Neutrophils # (Auto) 3.57 K/uL Lymphocytes # (Auto) 1.18 K/uL Monocytes # (Auto) 0.35 K/uL Eosinophils # (Auto) 0.14 K/uL Basophils # (Auto) 0.04 K/uL RDW Standard Deviation 42.3 fL RDW Coefficient of Variation 14.6 % Immature Granulocyte % (Auto) 0.8 % Immature Granulocyte # (Auto) 0.04 K/uL Sodium Level 135 mmol/L Potassium Level 3.6 mmol/L Chloride Level 99 mmol/L Carbon Dioxide Level 29 mmol/L Anion Gap 7.0 mmol/L Blood Urea Nitrogen 6 mg/dl Creatinine 0.54 mg/dl Est Creatinine Clear Calc Drug Dose 145.3 ml/min Estimated GFR () 127.7 Estimated GFR (Non- 110.2 BUN/Creatinine Ratio 10.9 Random Glucose 88 mg/dl Calcium Level 9.2 mg/dl Phosphorus Level 4.0 mg/dl Magnesium Level 1.8 mg/dl Total Bilirubin 0.4 mg/dl Aspartate Amino Transf (AST/SGOT) 18 U/L Alanine Aminotransferase (ALT/SGPT) 30 U/L Alkaline Phosphatase 86 U/L Prealbumin 15.2 mg/dl
[2017-07-24] MEDS ORDERED: DEXTROSE 10% 1,000 ML IV PRN (16:00)
[2017-07-24] MEDS ORDERED: CUSTOM PERIPHERAL PN 1 BAG IV SCH (16:00)
--- NOTE | 2017-07-24 16:30 | Progress Note ---
Subjective Date of Service: Jul 24, 2017. Subjective pt has no new complaints today continues to have hoarseness and odynophagia Problem List Medical Problems: (1) Bilateral pneumonia Status: Acute (2) Chronic low back pain Permanent Comment: [facility] Status: Chronic (3) Confusion Status: Acute (4) COPD with exacerbation Status: Acute (5) Dehydration Status: Acute (6) Hypoxia Status: Acute (7) Hypoxia Status: Acute (8) PNA (pneumonia) Status: Acute (9) Pneumonitis Status: Acute (10) Tachycardia Status: Acute Social History Problems: (1) Status post spinal surgery Status: Acute Review of Systems Constitutional: No fever, No chills, No weakness, No fatigue ENT: + sore throat, + trouble swallowing Respiratory: No cough, No shortness of breath, No dyspnea on exertion Cardiac: No chest pain, No PND, No edema Abdomen: No pain, No nausea, No vomiting Musculoskeletal: No joint pain, No muscle pain Psychiatric: No depression symptoms, No anxiety Objective Vital Signs Date Time Temp Pulse Resp B/P (MAP) Pulse Ox O2 Delivery O2 Flow Rate FiO2 07/24/17 15:39 168/91 (116) 07/24/17 15:21 36.5 87 20 167/100 (122) 91 Nasal Cannula 4.0 07/24/17 14:17 92 16 95 Nasal Cannula 4.0 07/24/17 12:00 Nasal Cannula 4.0 07/24/17 11:04 36.6 94 18 176/91 (119) 96 4.0 07/24/17 08:00 Nasal Cannula 4.0 07/24/17 07:39 36.8 99 20 169/81 (110) 94 4.0 07/24/17 06:50 92 18 94 Nasal Cannula 4.0 07/24/17 04:06 36.8 84 20 155/106 (122) 94 4.0 07/24/17 04:00 Nasal Cannula 4.0 07/24/17 00:00 Nasal Cannula 4.0 07/23/17 23:40 36.5 76 17 145/81 (102) 91 Room Air 07/23/17 20:00 Nasal Cannula 4.0 07/23/17 19:32 88 16 97 Nasal Cannula 4.0 07/23/17 18:54 36.9 82 20 161/89 (113) 96 Nasal Cannula 4.0 Physical Exam General Appearance: + mild distress, + thin Eyes: normal inspection, sclerae normal Neck: supple, no adenopathy Respiratory/Chest: chest non-tender, + decreased breath sounds, + rhonchi Cardiovascular: regular rate, rhythm, no murmur Abdomen: normal bowel sounds, non tender, soft Extremities: no pedal edema, no calf tenderness Neurologic/Psychiatric: alert, oriented x 3 Laboratory Results Last 24 Hours Test 07/23/17 17:56 07/24/17 07:23 07/24/17 09:31 07/24/17 11:24 Bedside Glucose 108 mg/dl 77 mg/dl White Blood Count 5.32 K/uL Red Blood Count 4.51 M/uL Hemoglobin 12.1 g/dL Hematocrit 36.1 % Mean Corpuscular Volume 80.0 fL Mean Corpuscular Hemoglobin 26.8 pg Mean Corpuscular Hemoglobin Concent 33.5 g/dl Platelet Count 344 K/uL Mean Platelet Volume 8.7 fL Neutrophils (%) (Auto) 67.0 % Lymphocytes (%) (Auto) 22.2 % Monocytes (%) (Auto) 6.6 % Eosinophils (%) (Auto) 2.6 % Basophils (%) (Auto) 0.8 % Neutrophils # (Auto) 3.57 K/uL Lymphocytes # (Auto) 1.18 K/uL Monocytes # (Auto) 0.35 K/uL Eosinophils # (Auto) 0.14 K/uL Basophils # (Auto) 0.04 K/uL RDW Standard Deviation 42.3 fL RDW Coefficient of Variation 14.6 % Immature Granulocyte % (Auto) 0.8 % Immature Granulocyte # (Auto) 0.04 K/uL Sodium Level 135 mmol/L Potassium Level 3.6 mmol/L Chloride Level 99 mmol/L Carbon Dioxide Level 29 mmol/L Anion Gap 7.0 mmol/L Blood Urea Nitrogen 6 mg/dl Creatinine 0.54 mg/dl Est Creatinine Clear Calc Drug Dose 145.3 ml/min Estimated GFR () 127.7 Estimated GFR (Non- 110.2 BUN/Creatinine Ratio 10.9 Random Glucose 88 mg/dl Calcium Level 9.2 mg/dl Phosphorus Level 4.0 mg/dl Magnesium Level 1.8 mg/dl Total Bilirubin 0.4 mg/dl Aspartate Amino Transf (AST/SGOT) 18 U/L Alanine Aminotransferase (ALT/SGPT) 30 U/L Alkaline Phosphatase 86 U/L Prealbumin 15.2 mg/dl Test 07/24/17 16:11 Bedside Glucose 70 mg/dl Assessment and Plan (1) Bilateral pneumonia (2) COPD (chronic obstructive pulmonary disease) (3) Tachycardia (4) Lung cancer (5) Cancer of supraglottis (6) CORONARY ATHEROSCLEROSIS OF [place] CORONARY VESSEL (7) HYPERTENSION NOS (8) Hypothyroidism (9) Depression (10) Cervical stenosis of spinal canal (11) Chronic low back pain 67yo M with bilateral pneumonia influencing his chronic respiratory failure from COPD, and severe protein calorie malnutrition due to dysphagia from previous treatment of his throat cancer. b/l pneumonia - suspicious for aspiration. Cont zosyn will transition to Augmentin once peg in place speech therapy feels is at high risk for aspiration is not optimistic will improve dysphagia/odynophagia - chronic issue but worsening. NPO until peg placement, limited by anesthesia eval for sedation, consider next week severe protein calorie malnutrition/weight loss - patient reports difficulty eating, will keep npo start ppn when able before peg placed hyponatremia - improved chronic hypoxic respiratory failure - due to COPD -remains stable, pulmonary med has signed off. - nebs, inhalers, h/o throat cancer - noted; just had direct laryngoscopy 2-3 weeks ago and there was no recurrence; also had biopsies in February - negative for dysplasia. h/o RUL non-small cell lung ca s/p lobectomy, plus h/o LLL non-small cell lung ca s/p high-dose radiation CAD - no ischemic symptoms at this time. HTN - BPs somewhat labile; follow for now. chronic pain syndrome - cervical spine, lumbar spine pain - continue outpatient regimen of meds (gets these thru [facility]). needs occasional iv dilaudid hypothyroidism -clinically stable on synthroid; TSH 05/2017 was compensated. DVT proph - lovenox 40mg daily. Problem Qualifiers (1) Bilateral pneumonia: Pneumonia type: due to unspecified organism Lung location: lower lobe of lung Qualified Codes: J18.9 - Pneumonia, unspecified organism (2) COPD (chronic obstructive pulmonary disease): COPD type: COPD with acute lower respiratory infection Qualified Codes: J44.0 - Chronic obstructive pulmonary disease with acute lower respiratory infection (3) Depression: Depression Type: major depressive disorder Major depression recurrence: recurrent Active/Remission status: in partial remission Qualified Codes: F33.41 - Major depressive disorder, recurrent, in partial remission
[2017-07-24] MEDS: HydrALAZINE HCL 20 MG/ML VIAL IV PRN (17:56)
[2017-07-24] MEDS: LACTATED RINGER'S 1000ML 1,000 ML IV SCH (17:56)
[2017-07-24] MEDS: HYDROmorphone INJ 0.5 MG/0.5 ML SYR IV PRN (20:25)
[2017-07-24] MEDS: MIRTAZAPINE TAB 15 MG TAB PO SCH (21:00)
[2017-07-25] VITALS (13 sets, daily range): BP systolic 136–188; BP diastolic 75–94; PULSE 90–111; TEMP 36.4–37.1; O2SAT 91–97
[2017-07-25] MEDS: LORAZEPAM 2 MG/ML 1 ML VIAL IV PRN ×2 (00:18→23:21)
[2017-07-25] MEDS ORDERED: METOPROLOL TARTRATE 1 MG/ML VIAL IV STA (02:05)
[2017-07-25] MEDS ORDERED: POTASSIUM CHLORIDE 20 MEQ TABCR PO STA (02:09)
[2017-07-25] MEDS ORDERED: MAGNESIUM CHLORIDE 64MG DELAYED REL TAB PO STA (02:14)
[2017-07-25] MEDS ORDERED: NURSING VERBAL MED ORDER ONE (02:30)
[2017-07-25] MEDS: POTASSIUM CHLR 10MEQ / WTR IV SCH ×2 (02:41→03:50)
[2017-07-25] MEDS: LACTATED RINGER'S 1000ML 1,000 ML IV SCH ×3 (05:03→23:13)
[2017-07-25] MEDS: PIPERACILL/TAZOBAC IV 3.375 GM in DEXTROSE 5% 100ML 100 ML IV SCH ×3 (05:03→19:53)
[2017-07-25 06:42] LABS: HEMATOCRIT 37.6 % (42-52); MEAN CELL VOLUME 79.5 fL (80-100); MEAN CORPUSCULAR HEMOGLOBIN 26.8 pg (25-34); MEAN CORPUSCULAR HGB CONC 33.8 g/dl (32-36); MEAN PLATELET VOLUME 8.8 fL (7.4-10.4); PLATELET COUNT 400 K/uL (130-400); RED BLOOD COUNT 4.73 M/uL (4.7-6.1); WHITE BLOOD COUNT 7.45 K/uL (4.8-10.8)
[2017-07-25] MEDS: LEVALBUTEROL 1.25MG/3ML NEB INH SCH ×3 (07:05→19:15)
[2017-07-25 07:12] LABS: BUN/CREATININE RATIO 11.1 (10-20); CALCIUM 8.9 mg/dl (8.5-10.1); CREATININE 0.62 mg/dl (0.60-1.40); MAGNESIUM 1.6 mg/dl (1.8-2.4); POTASSIUM 3.5 mmol/L (3.5-5.1)
[2017-07-25 07:20] LABS: PHOSPHORUS 3.4 mg/dl (2.5-4.9)
[2017-07-25] MEDS ORDERED: MAGNESIUM SULFATE 1GM / D5W 1 GM in PREMIXED IN D5W 100 ML IV ONE (08:30)
[2017-07-25] MEDS: MULTIVITAMIN TAB PO SCH (09:00)
[2017-07-25] MEDS: BUDESONIDE/FORMOTEROL FUMARATE 80/4.5 60 PUFFS/INHALER INH SCH ×2 (09:09→19:58)
[2017-07-25] MEDS: HYDROmorphone INJ 1 MG/ML SYR IV SCH ×4 (09:09→23:13)
[2017-07-25] MEDS: PANTOprazole INJ 40 MG in SYRINGE 0 ML IV SCH (09:10)
[2017-07-25] MEDS: ENOXAPARIN 40 MG/0.4 ML SYR SQ SCH (09:10)
[2017-07-25] MEDS: LEVOTHYROXINE SODIUM INJ 62.5 MCG in SYRINGE 0 ML IV SCH (09:16)
[2017-07-25] MEDS ORDERED: COUGH DROP (SUGAR FREE) LOZ 24 LOZ/1 BOX ONE (10:44)
[2017-07-25] MEDS: HYDROmorphone INJ 0.5 MG/0.5 ML SYR IV PRN ×2 (10:46→19:57)
--- NOTE | 2017-07-25 12:44 | Progress Note ---
Subjective Date of Service: Jul 25, 2017. Subjective pt has no new complaints, is anxiously awaiting peg placement Problem List Medical Problems: (1) Bilateral pneumonia Status: Acute (2) Chronic low back pain Permanent Comment: [facility] Status: Chronic (3) Confusion Status: Acute (4) COPD with exacerbation Status: Acute (5) Dehydration Status: Acute (6) Hypoxia Status: Acute (7) Hypoxia Status: Acute (8) PNA (pneumonia) Status: Acute (9) Pneumonitis Status: Acute (10) Tachycardia Status: Acute Social History Problems: (1) Status post spinal surgery Status: Acute Review of Systems Constitutional: + weakness, No fever, No chills ENT: + sore throat, + trouble swallowing Respiratory: No cough, No sputum, No wheezing, No shortness of breath Cardiac: No chest pain, No orthopnea Abdomen: No pain, No nausea, No vomiting Musculoskeletal: No joint pain, No muscle pain Psychiatric: + depression symptoms, No anxiety Objective Vital Signs Date Time Temp Pulse Resp B/P (MAP) Pulse Ox O2 Delivery O2 Flow Rate FiO2 07/25/17 11:02 36.4 95 18 188/89 (122) 93 4.0 07/25/17 07:37 36.8 95 18 164/79 (107) 96 4.0 07/25/17 07:05 90 16 91 Nasal Cannula 4.0 07/25/17 04:00 Nasal Cannula 4.0 07/25/17 03:48 37.1 94 19 136/94 (108) 96 Nasal Cannula 4.0 07/25/17 02:41 121 168/93 07/25/17 00:00 36.7 111 20 168/93 (118) 97 Nasal Cannula 4.0 07/25/17 00:00 Nasal Cannula 4.0 07/24/17 20:00 Nasal Cannula 4.0 07/24/17 19:18 36.7 97 20 152/85 (107) 93 Nasal Cannula 4.0 07/24/17 19:08 104 16 94 Nasal Cannula 4.0 07/24/17 17:55 160/96 (117) 07/24/17 16:00 Nasal Cannula 4.0 07/24/17 15:39 168/91 (116) 07/24/17 15:21 36.5 87 20 167/100 (122) 91 Nasal Cannula 4.0 07/24/17 14:17 92 16 95 Nasal Cannula 4.0 Physical Exam General Appearance: WD/WN, + mild distress Eyes: normal inspection, sclerae normal Neck: supple, no JVD Respiratory/Chest: chest non-tender, lungs clear, normal breath sounds Cardiovascular: regular rate, rhythm, no murmur Abdomen: normal bowel sounds, non tender, soft Extremities: no pedal edema, no calf tenderness Neurologic/Psychiatric: alert Laboratory Results Last 24 Hours Test 07/24/17 16:11 07/25/17 06:10 07/25/17 06:55 07/25/17 11:19 Bedside Glucose 70 mg/dl 89 mg/dl 96 mg/dl White Blood Count 7.45 K/uL Red Blood Count 4.73 M/uL Hemoglobin 12.7 g/dL Hematocrit 37.6 % Mean Corpuscular Volume 79.5 fL Mean Corpuscular Hemoglobin 26.8 pg Mean Corpuscular Hemoglobin Concent 33.8 g/dl RDW Standard Deviation 42.5 fL RDW Coefficient of Variation 14.6 % Platelet Count 400 K/uL Mean Platelet Volume 8.8 fL Sodium Level 135 mmol/L Potassium Level 3.5 mmol/L Chloride Level 99 mmol/L Carbon Dioxide Level 29 mmol/L Anion Gap 7.0 mmol/L Blood Urea Nitrogen 7 mg/dl Creatinine 0.62 mg/dl Est Creatinine Clear Calc Drug Dose 126.5 ml/min Estimated GFR () 120.7 Estimated GFR (Non- 104.1 BUN/Creatinine Ratio 11.1 Random Glucose 90 mg/dl Calcium Level 8.9 mg/dl Phosphorus Level 3.4 mg/dl Magnesium Level 1.6 mg/dl Assessment and Plan (1) Bilateral pneumonia (2) COPD (chronic obstructive pulmonary disease) (3) Tachycardia (4) Lung cancer (5) Cancer of supraglottis (6) CORONARY ATHEROSCLEROSIS OF [place] CORONARY VESSEL (7) HYPERTENSION NOS (8) Hypothyroidism (9) Depression (10) Cervical stenosis of spinal canal (11) Chronic low back pain 67yo M with bilateral pneumonia influencing his chronic respiratory failure from COPD, and severe protein calorie malnutrition due to dysphagia from previous treatment of his throat cancer. no new changes awaiting for peg b/l pneumonia - suspicious for aspiration. Cont zosyn will transition to Augmentin once peg in place speech therapy feels is at high risk for aspiration is not optimistic will improve dysphagia/odynophagia - chronic issue but worsening. NPO until peg placement, limited by anesthesia eval for sedation, consider next week severe protein calorie malnutrition/weight loss - patient reports difficulty eating, will keep npo start ppn when able before peg placed hyponatremia - improved chronic hypoxic respiratory failure - due to COPD -remains stable, pulmonary med has signed off. - nebs, inhalers, h/o throat cancer - noted; just had direct laryngoscopy 2-3 weeks ago and there was no recurrence; also had biopsies in February - negative for dysplasia. h/o RUL non-small cell lung ca s/p lobectomy, plus h/o LLL non-small cell lung ca s/p high-dose radiation CAD - no ischemic symptoms at this time. HTN - BPs somewhat labile; follow for now. chronic pain syndrome - cervical spine, lumbar spine pain - continue outpatient regimen of med[facility] needs occasional iv dilaudid hypothyroidism -clinically stable on synthroid; TSH 05/2017 was compensated. DVT proph - lovenox 40mg daily. Problem Qualifiers (1) Bilateral pneumonia: Pneumonia type: due to unspecified organism Lung location: lower lobe of lung Qualified Codes: J18.9 - Pneumonia, unspecified organism (2) COPD (chronic obstructive pulmonary disease): COPD type: COPD with acute lower respiratory infection Qualified Codes: J44.0 - Chronic obstructive pulmonary disease with acute lower respiratory infection (3) Depression: Depression Type: major depressive disorder Major depression recurrence: recurrent Active/Remission status: in partial remission Qualified Codes: F33.41 - Major depressive disorder, recurrent, in partial remission
[2017-07-25] MEDS: HydrALAZINE HCL 20 MG/ML VIAL IV PRN (13:44)
[2017-07-25] MEDS: MIRTAZAPINE TAB 15 MG TAB PO SCH (21:00)
[2017-07-26] VITALS (16 sets, daily range): BP systolic 120–187; BP diastolic 68–92; PULSE 75–104; TEMP 36.5–36.8; O2SAT 93–100
[2017-07-26] MEDS: PIPERACILL/TAZOBAC IV 3.375 GM in DEXTROSE 5% 100ML 100 ML IV SCH ×3 (04:13→21:04)
[2017-07-26] MEDS: HYDROmorphone INJ 1 MG/ML SYR IV SCH ×4 (04:14→22:28)
[2017-07-26] MEDS ORDERED: CEFAZOLIN IV 2,000 MG in SYRINGE 0 ML IV SCH (06:00)
[2017-07-26 07:03] LABS: BUN/CREATININE RATIO 10.9 (10-20); CALCIUM 8.9 mg/dl (8.5-10.1); CREATININE 0.58 mg/dl (0.60-1.40); POTASSIUM 3.4 mmol/L (3.5-5.1)
[2017-07-26] MEDS: LEVALBUTEROL 1.25MG/3ML NEB INH SCH ×3 (07:03→19:04)
[2017-07-26 08:07] LABS: HEMATOCRIT 35.5 % (42-52); MEAN CELL VOLUME 79.4 fL (80-100); MEAN CORPUSCULAR HEMOGLOBIN 26.4 pg (25-34); MEAN CORPUSCULAR HGB CONC 33.2 g/dl (32-36); MEAN PLATELET VOLUME 8.7 fL (7.4-10.4); PLATELET COUNT 330 K/uL (130-400); RED BLOOD COUNT 4.47 M/uL (4.7-6.1); WHITE BLOOD COUNT 8.13 K/uL (4.8-10.8)
[2017-07-26 08:16] LABS: INR 1.1 (0.9-1.1); PARTIAL THROMBOPLASTIN RATIO 1.2; PROTHROMBIN TIME (PATIENT) 11.3 SECONDS (9.0-12.0)
[2017-07-26] MEDS ORDERED: CEFAZOLIN SOD 2000MG/10 ML IV PUSH IV ONE (08:45)
[2017-07-26] MEDS: LACTATED RINGER'S 1000ML 1,000 ML IV SCH ×2 (08:59→21:03)
[2017-07-26] MEDS: POTASSIUM CHLR 10 MEQ / WTR 10 MEQ in PREMIXED WATER 100 ML IV SCH ×3 (08:59→13:56)
--- NOTE | 2017-07-26 08:59 | Progress Note ---
Progress Note Date of Service Jul 26, 2017. (Laura Burr CRNP) Progress Note Pt is a 67 y/o male, w hx of supraglottic carcinoma s/p radiation, resection, in remission now. Admitted for pneumonia likely related to recurrent aspiration. He failed his swallow study. He decided to go forward with PEG placement. He did have PEG before during his cancer treatment. VS, Labs reviewed. K 3.4, INR 1.1. KCl 10meq IV ordered. PE: - AAO x3 in NAD - Lung sounds bilaterally diminished more so on bases, On 4L O2 per NC. O2 sat 98%. - Abd soft, non tender, BS present. Old PEG scar at LUQ quadrant. - No edema on bilateral upper and lower extremities. Keep pt NPO for PEG placement. Send Ancef 2g IV down to be given pre-procedure. GI will give further recs after procedure completed. (Laura Burr, VEE) Stable for PEG today. (Dari Aguila M.D.)
[2017-07-26] MEDS: BUDESONIDE/FORMOTEROL FUMARATE 80/4.5 60 PUFFS/INHALER INH SCH ×2 (09:00→21:03)
[2017-07-26] MEDS: MULTIVITAMIN TAB PO SCH (09:01)
--- NOTE | 2017-07-26 09:13 | Progress Note ---
Subjective Date of Service: Jul 26, 2017. Subjective pt has no complaints is anxious to have PEG this afternoon, is familar with peg tube, still hoarse raspy voice, no other new complaints Problem List Medical Problems: (1) Bilateral pneumonia Status: Acute (2) Chronic low back pain Permanent Comment: [facility] Status: Chronic (3) Confusion Status: Acute (4) COPD with exacerbation Status: Acute (5) Dehydration Status: Acute (6) Hypoxia Status: Acute (7) Hypoxia Status: Acute (8) PNA (pneumonia) Status: Acute (9) Pneumonitis Status: Acute (10) Tachycardia Status: Acute Social History Problems: (1) Status post spinal surgery Status: Acute Review of Systems Constitutional: No fever, No chills, No weakness ENT: + sore throat, + trouble swallowing Respiratory: No cough, No sputum, No shortness of breath, No dyspnea on exertion Cardiac: No chest pain, No edema Abdomen: No pain, No nausea Musculoskeletal: No joint pain, No muscle pain Psychiatric: No depression symptoms, No anxiety Objective Vital Signs Date Time Temp Pulse Resp B/P (MAP) Pulse Ox O2 Delivery O2 Flow Rate FiO2 07/26/17 07:20 36.7 75 18 120/68 (85) 98 07/26/17 07:03 92 16 96 Nasal Cannula 4.0 07/26/17 06:37 36.5 93 16 124/74 93 Nasal Cannula 4.0 07/26/17 04:20 36.5 93 16 124/74 (91) 93 Nasal Cannula 4.0 07/26/17 04:00 Nasal Cannula 4.0 07/26/17 00:00 Nasal Cannula 4.0 07/25/17 23:27 36.7 97 20 159/75 (103) 92 Nasal Cannula 4.0 07/25/17 20:00 Nasal Cannula 4.0 07/25/17 19:58 36.5 105 22 184/81 (115) 96 Nasal Cannula 4.0 07/25/17 19:15 110 18 93 Nasal Cannula 4.0 07/25/17 16:28 103 16 94 Nasal Cannula 4.0 07/25/17 16:00 97 Nasal Cannula 4.0 07/25/17 15:46 36.6 104 20 151/81 (104) 97 Nasal Cannula 4.0 07/25/17 12:00 93 Nasal Cannula 4.0 07/25/17 11:02 36.4 95 18 188/89 (122) 93 4.0 Physical Exam General Appearance: no apparent distress, + thin Eyes: normal inspection, sclerae normal Respiratory/Chest: chest non-tender, lungs clear, normal breath sounds Cardiovascular: regular rate, rhythm, no murmur Abdomen: normal bowel sounds, non tender, soft Extremities: no pedal edema, no calf tenderness Neurologic/Psychiatric: alert, oriented x 3 Laboratory Results Last 24 Hours Test 07/25/17 11:19 07/25/17 16:11 07/25/17 21:39 07/26/17 06:05 Bedside Glucose 96 mg/dl 89 mg/dl 101 mg/dl Sodium Level 137 mmol/L Potassium Level 3.4 mmol/L Chloride Level 101 mmol/L Carbon Dioxide Level 29 mmol/L Anion Gap 7.0 mmol/L Blood Urea Nitrogen 6 mg/dl Creatinine 0.58 mg/dl Est Creatinine Clear Calc Drug Dose 135.2 ml/min Estimated GFR () 124.0 Estimated GFR (Non- 107.0 BUN/Creatinine Ratio 10.9 Random Glucose 97 mg/dl Calcium Level 8.9 mg/dl Test 07/26/17 07:50 White Blood Count 8.13 K/uL Red Blood Count 4.47 M/uL Hemoglobin 11.8 g/dL Hematocrit 35.5 % Mean Corpuscular Volume 79.4 fL Mean Corpuscular Hemoglobin 26.4 pg Mean Corpuscular Hemoglobin Concent 33.2 g/dl RDW Standard Deviation 42.9 fL RDW Coefficient of Variation 14.9 % Platelet Count 330 K/uL Mean Platelet Volume 8.7 fL Prothrombin Time 11.3 SECONDS Prothromb Time International Ratio 1.1 Activated Partial Thromboplast Time 29.9 SECONDS Partial Thromboplastin Ratio 1.2 Assessment and Plan (1) Bilateral pneumonia (2) COPD (chronic obstructive pulmonary disease) (3) Tachycardia (4) Lung cancer (5) Cancer of supraglottis (6) CORONARY ATHEROSCLEROSIS OF [place] CORONARY VESSEL (7) HYPERTENSION NOS (8) Hypothyroidism (9) Depression (10) Cervical stenosis of spinal canal (11) Chronic low back pain 67yo M with bilateral pneumonia influencing his chronic respiratory failure from COPD, and severe protein calorie malnutrition due to dysphagia from previous treatment of his throat cancer. no new changes awaiting for peg b/l pneumonia - suspicious for aspiration. Cont zosyn will transition to Augmentin once peg in place speech therapy feels is at high risk for aspiration is not optimistic will improve dysphagia/odynophagia - chronic issue but worsening. NPO until peg placement, limited by anesthesia eval for sedation, consider next week severe protein calorie malnutrition/weight loss - patient reports difficulty eating, will keep npo start ppn when able before peg placed hyponatremia - improved chronic hypoxic respiratory failure - due to COPD -remains stable, pulmonary med has signed off. - nebs, inhalers, h/o throat cancer - noted; just had direct laryngoscopy 2-3 weeks ago and there was no recurrence; also had biopsies in February - negative for dysplasia. h/o RUL non-small cell lung ca s/p lobectomy, plus h/o LLL non-small cell lung ca s/p high-dose radiation CAD - no ischemic symptoms at this time. HTN - BPs somewhat labile; follow for now. chronic pain syndrome - cervical spine, lumbar spine pain - continue outpatient regimen of med[facility] needs occasional iv dilaudid hypothyroidism -clinically stable on synthroid; TSH 05/2017 was compensated. DVT proph - lovenox 40mg daily. Problem Qualifiers (1) Bilateral pneumonia: Pneumonia type: due to unspecified organism Lung location: lower lobe of lung Qualified Codes: J18.9 - Pneumonia, unspecified organism (2) COPD (chronic obstructive pulmonary disease): COPD type: COPD with acute lower respiratory infection Qualified Codes: J44.0 - Chronic obstructive pulmonary disease with acute lower respiratory infection (3) Depression: Depression Type: major depressive disorder Major depression recurrence: recurrent Active/Remission status: in partial remission Qualified Codes: F33.41 - Major depressive disorder, recurrent, in partial remission
[2017-07-26] MEDS: LEVOTHYROXINE SODIUM INJ 62.5 MCG in SYRINGE 0 ML IV SCH (09:37)
[2017-07-26] MEDS: PANTOprazole INJ 40 MG in SYRINGE 0 ML IV SCH (09:38)
[2017-07-26] MEDS ORDERED: SODIUM CHLORIDE 0.9% 500ML 500 ML IV ONE (12:01)
--- NOTE | 2017-07-26 12:50 | GI REPORT ---
Procedure Date: 07/26/2017 11:48 AM Procedure: Upper GI endoscopy Indications: Dysphagia, Malnutrition Medicines: Monitored Anesthesia Care Complications: No immediate complications. Estimated Blood Loss: Estimated blood loss: none. Procedure: Pre-Anesthesia Assessment: - Prior to the procedure, a History and Physical was performed, and patient medications and allergies were reviewed. The patient is competent. The risks and benefits of the procedure and the sedation options and risks were discussed with the patient. All questions were answered and informed consent was obtained. Patient identification and proposed procedure were verified by the physician and the nurse in the procedure room. Mental Status Examination: alert and oriented. Airway Examination: normal oropharyngeal airway and neck mobility. Respiratory Examination: clear to auscultation. CV Examination: normal. ASA Grade Assessment: III - A patient with severe systemic disease. After reviewing the risks and benefits, the patient was deemed in satisfactory condition to undergo the procedure. The anesthesia plan was to use monitored anesthesia care (MAC). Immediately prior to administration of medications, the patient was re-assessed for adequacy to receive sedatives. The heart rate, respiratory rate, oxygen saturations, blood pressure, adequacy of pulmonary ventilation, and response to care were monitored throughout the procedure. The physical status of the patient was re-assessed after the procedure. After obtaining informed consent, the endoscope was passed under direct vision. Throughout the procedure, the patient's blood pressure, pulse, and oxygen saturations were monitored continuously. The scope was introduced through the mouth, and advanced to the second part of duodenum. The upper GI endoscopy was accomplished without difficulty. The patient tolerated the procedure well. Findings: The examined esophagus was normal. There was evidence of a closed previous gastrostomy present in the gastric antrum. This was characterized by healthy appearing mucosa. The entire examined stomach was normal. The patient was placed in the supine position for PEG placement. The stomach was insufflated to appose gastric and abdominal gates. A site was located in the body of the stomach with excellent transillumination and manual external pressure for placement. The abdominal wall was marked and prepped in a sterile manner. The area was anesthetized with 1 mL of 1% lidocaine. The trocar needle was introduced through the abdominal wall and into the stomach under direct endoscopic view. A snare was introduced through the endoscope and opened in the gastric lumen. The guide wire was passed through the trocar and into the open snare. The snare was closed around the guide wire. The endoscope and snare were removed, pulling the wire out through the mouth. A skin incision was made at the site of needle insertion. The externally removable 20 Fr Stuart-Cook gastrostomy tube was lubricated. The G-tube was tied to the guide wire and pulled through the mouth and into the stomach. The trocar needle was removed, and the gastrostomy tube was pulled out from the stomach through the skin. The external bumper was attached to the gastrostomy tube, and the tube was cut to remove the guide wire. The final position of the gastrostomy tube was confirmed by relook endoscopy, and skin marking noted to be 2 cm at the external bumper. The final tension and compression of the abdominal wall by the PEG tube and external bumper were checked and revealed that the bumper was moderately tight and mildly deforming the skin. The feeding tube was capped, and the tube site cleaned and dressed. The duodenal bulb and 2nd part of the duodenum were normal. Impression: - Normal esophagus. - Closed previous gastrostomy present characterized by healthy appearing mucosa. - Normal stomach. - An externally removable PEG placement was successfully completed. - Normal duodenal bulb and 2nd part of the duodenum. - No specimens collected. Recommendation: - Return patient to [facility] for ongoing care. - NPO today. - Please follow the post-PEG recommendations including: - Nutrition consult for formula and volume. - Dry dressing only. - Eexternal bolster 1 cm from abdominal wall. - Adequate Pain medications. - May use PEG tomorrow for feedings after evaluation by GI team. Dari Aguila MD 07/26/2017 12:50:19 PM This report has been signed electronically. Note Initiated On: 07/26/2017 11:48 AM I attest to the content of the Intraoperative Record and orders documented therein, exceptions below
[2017-07-26] MEDS: HYDROmorphone INJ 0.5 MG/0.5 ML SYR IV PRN ×2 (14:01→19:23)
--- NOTE | 2017-07-26 14:21 | Anesthesiology Progress Note ---
Anesthesia Post Op Note Date & Time Jul 26, 2017 at 14:20 Vital Signs Pain Intensity: 7.0 Vital Signs Past 12 Hours Date Time Temp Pulse Resp B/P (MAP) Pulse Ox O2 Delivery O2 Flow Rate FiO2 07/26/17 13:51 98 20 163/92 (115) 98 Nasal Cannula 4.0 07/26/17 13:16 91 18 172/102 (125) 98 Nasal Cannula 4 07/26/17 13:00 96 18 160/89 (112) 98 Nasal Cannula 4 07/26/17 12:46 90 16 114/71 (85) 98 Nasal Cannula 4 07/26/17 11:33 36.6 91 20 176/98 (124) 98 Nasal Cannula 4 07/26/17 08:00 98 Nasal Cannula 4.0 07/26/17 07:20 36.7 75 18 120/68 (85) 98 07/26/17 07:03 92 16 96 Nasal Cannula 4.0 07/26/17 06:37 36.5 93 16 124/74 93 Nasal Cannula 4.0 07/26/17 04:20 36.5 93 16 124/74 (91) 93 Nasal Cannula 4.0 07/26/17 04:00 Nasal Cannula 4.0 Notes Mental Status: alert / awake / arousable, participated in evaluation Pt Amnestic to Procedure: Yes Nausea / Vomiting: adequately controlled Pain: adequately controlled Airway Patency, RR, SpO2: stable & adequate BP & HR: stable & adequate Hydration State: stable & adequate Anesthetic Complications: no major complications apparent
[2017-07-26] MEDS: HydrALAZINE HCL 20 MG/ML VIAL IV PRN (15:29)
[2017-07-26] MEDS: MIRTAZAPINE TAB 15 MG TAB PO SCH (21:04)
[2017-07-26] MEDS: LORAZEPAM 2 MG/ML 1 ML VIAL IV PRN (22:40)
[2017-07-27] VITALS (9 sets, daily range): BP systolic 121–182; BP diastolic 74–92; PULSE 85–108; TEMP 36.5–37; O2SAT 92–100
[2017-07-27] MEDS: LEVALBUTEROL 1.25MG/3ML NEB INH SCH ×4 (02:12→19:20)
[2017-07-27] MEDS: PIPERACILL/TAZOBAC IV 3.375 GM in DEXTROSE 5% 100ML 100 ML IV SCH ×3 (03:46→19:18)
[2017-07-27] MEDS: HYDROmorphone INJ 0.5 MG/0.5 ML SYR IV PRN ×3 (03:49→16:03)
[2017-07-27] MEDS: HYDROmorphone INJ 1 MG/ML SYR IV SCH ×4 (03:59→20:12)
[2017-07-27] MEDS: LACTATED RINGER'S 1000ML 1,000 ML IV SCH ×2 (06:19→15:31)
[2017-07-27 06:48] LABS: HEMATOCRIT 38.7 % (42-52); MEAN CELL VOLUME 79.6 fL (80-100); MEAN CORPUSCULAR HEMOGLOBIN 26.5 pg (25-34); MEAN CORPUSCULAR HGB CONC 33.3 g/dl (32-36); PLATELET COUNT 429 K/uL (130-400); RED BLOOD COUNT 4.86 M/uL (4.7-6.1); WHITE BLOOD COUNT 8.63 K/uL (4.8-10.8)
[2017-07-27 07:23] LABS: BUN/CREATININE RATIO 8.2 (10-20); CALCIUM 9.2 mg/dl (8.5-10.1); CREATININE 0.51 mg/dl (0.60-1.40); POTASSIUM 3.8 mmol/L (3.5-5.1)
--- NOTE | 2017-07-27 07:47 | Gastroenterology Progress Note ---
Gastroenterology Progress Note Patient was seen and examined, feels fine, no abdominal pain. On exam: Abdomen is soft, nontender, PEG intact, no discharge or erythema, external bumper remains at 2 cm. Gastric contents noted. Recommendation: - Can start PEG tube feeding. - Please recall GI if any questions or concerns.
[2017-07-27] MEDS ORDERED: LEVO125T5 PEG (07:57)
[2017-07-27] MEDS ORDERED: NRN300 PEG (07:57)
[2017-07-27] MEDS ORDERED: SERT-234 PEG (07:57)
[2017-07-27] MEDS ORDERED: AMOX875T PO (07:57)
[2017-07-27] MEDS ORDERED: OXYC10SO PEG (07:57)
[2017-07-27] MEDS ORDERED: LANS30TA3 PEG (07:57)
[2017-07-27] MEDS ORDERED: MIRT15TA53 PEG (07:57)
--- NOTE | 2017-07-27 08:00 | Discharge Instructions ---
Discharge Instructions Date of Service Jul 27, 2017. Admission Reason for Admission: Bilateral Pneumonia, Tachycardia Discharge Discharge Diagnosis / Problem: aspiration pneuomonia Discharge Goals Goal(s): Diagnostic testing, Therapeutic intervention Activity Recommendations Activity Limitations: as noted below Lifting Limitations: gradually increase as tolerated . Current Hospital Diet Patient's current hospital diet: Discharge Diet Recommended Diet: N/A Procedures Procedures Performed: PEG tube placement Pending Studies Studies pending at discharge: no Medical Emergencies . Who to Call and When: Medical Emergencies: If at any time you feel your situation is an emergency, please call 911 immediately. . Non-Emergent Contact Non-Emergency issues call your: Primary Care Provider Call Non-Emergent contact if: temperature is above 101, your pain is unusual for you . . "Provider Documentation" section prepared by Sterling Tan. . Mandrel Puller Recommendations Mandrel Puller Recommendations: Please always flush your tube after using any medication and usually with about 250 ml three times a day Please use liquid children medication for over the counter needs Follow up with your primary care in case your prescribed medications need to be adjusted to your new route VTE Core Measure Inpt VTE Proph given/why not?: Marlys Brunner, SCD's
[2017-07-27] MEDS ORDERED: [UNRECOGNIZED DRUG - CODE] PEG (08:03)
[2017-07-27] MEDS ORDERED: NUTRLIQ14 PEG (08:03)
[2017-07-27] MEDS: BUDESONIDE/FORMOTEROL FUMARATE 80/4.5 60 PUFFS/INHALER INH SCH ×2 (09:53→19:19)
[2017-07-27] MEDS: MULTIVITAMIN TAB PO SCH (09:54)
[2017-07-27] MEDS: LEVOTHYROXINE SODIUM INJ 62.5 MCG in SYRINGE 0 ML IV SCH (09:59)
[2017-07-27] MEDS: PANTOprazole INJ 40 MG in SYRINGE 0 ML IV SCH (10:00)
[2017-07-27] MEDS: FIBERSOURCE HN 1000ML BAG PEG SCH ×2 (10:47)
--- NOTE | 2017-07-27 13:38 | Discharge Summary ---
Discharge Summary Date of Service Jul 27, 2017. Discharge Summary Admission Date: Jul 21, 2017 at 15:41 Discharge Date: Jul 27, 2017 Discharge Disposition: Home with services Principal Diagnosis: odynophagia and dysphagia, aspiration pneumonia Problems/Secondary Diagnoses: (1) Chronic low back pain Status: Chronic Medication Reconciliation New Medications: Amoxicillin & Pot Clavulanate (Augmentin 875-125 mg) 1 Tab Tab 875 MG PO BID, #14 TAB can you substitute liquid if this cannot be crushed Gabapentin (Gabapentin) 300 Mg Cap 1 CAP PEG HS, #30 CAP 6 Refills Lansoprazole (Prevacid Solutab) 30 Mg Anastasiia 30 MG PEG DAILY, #90 TAB 3 Refills Nutritional Supplements (Fibersource Hn) 1 Liq Liq 70 ML PEG Q1H for 30 Days, #1 % 6 Refills please give one month supply Nutritional Supplements (Nutren 2.0) 1 Liq Liq 4 BOX PEG DAILY for 30 Days Oxycodone Oral Soln (Roxicodone Oral Soln) 5 Mg/5 Ml Soln 10 ML PEG Q6H PRN for Pain, #200 ML pt now needs liquid medicine this is to replace oral tabs Changed Medications: Levothyroxine Sodium (Levothyroxine Sodium) 125 Mcg Tab 1 TAB PEG DAILY, #30 TAB (Changed from: PO) Mirtazapine (Mirtazapine) 15 Mg Tab 7.5 MG PEG HS, #30 DOSE 5 Refills (Changed from: PO; Refills: ) Sertraline (Zoloft) 100 Mg Tab 100 MG PEG DAILY, #30 TAB 6 Refills (Changed from: PO; Refills: ) Continued Medications: Budesonide/Formoterol Fumarate (Symbicort 80/4.5 Inhaler) Unknown Strength Aero 2 PUFFS INH BID Levalbuterol Hcl (Levalbuterol Hcl) 1.25 Mg/3 Ml Neb 1.25 MG INH TID PRN for SOB/Wheezing for 30 Days, #1 BOX 3 Refills Discontinued Medications: Aspirin (Aspirin) 325 Mg Tab 650 MG PO QAM PRN for Headache Cyclobenzaprine Hcl (Flexeril) 10 Mg Tab 10-20 MG PO TID, TAB Gabapentin (Gabapentin) 100 Mg Cap 100 MG PO TID Multivitamin (Multivitamin) Tab 1 TAB PO DAILY Naproxen (Aleve) 220 Mg Tab 220 MG PO PRN, TAB Omeprazole (Prilosec) 20 Mg Capcr 20 MG PO BID, CAP Oxycodone Hcl (Oxycodone Hcl) 20 Mg Tab 20 MG PO UD Take 40 mg QAM, 20 mg in early afternoon, and 40 mg in evening Oxycodone Ir (Roxicodone Ir) 5 Mg Tab 10 MG PO TID PRN for Severe Pain, TAB Take along with oxycontin ER Ranitidine (Zantac) 150 Mg Tab 150 MG PO BID, TAB Wheat Dextrin (Benefiber) 1 Tab Tab 2 TSP PO BID PRN for Constipation Zolpidem Tartrate (Ambien) 10 Mg Tab 5 MG PO HS, TAB Discharge Exam Review of Systems: Constitutional: No fever, No chills Cardiovascular: No chest pain, No edema Abdomen: No pain, No nausea, No diarrhea, No constipation Physical Exam: General Appearance: WD/WN Eyes: PERRL, EOMI Respiratory/Chest: chest non-tender, + decreased breath sounds, + rhonchi Cardiovascular: regular rate, rhythm, no murmur Abdomen / GI: normal bowel sounds, soft Hospital Course (1) Bilateral pneumonia (2) COPD (chronic obstructive pulmonary disease) (3) Tachycardia (4) Lung cancer (5) Cancer of supraglottis (6) CORONARY ATHEROSCLEROSIS OF [place] CORONARY VESSEL (7) HYPERTENSION NOS (8) Hypothyroidism (9) Depression (10) Cervical stenosis of spinal canal (11) Chronic low back pain 67yo M with bilateral pneumonia influencing his chronic respiratory failure from COPD, and severe protein calorie malnutrition due to dysphagia from previous treatment of his throat cancer. no new changes awaiting for peg b/l pneumonia - suspicious for aspiration. will transition to Augmentin via peg once discharged speech therapy feels is at high risk for aspiration is not optimistic will improve dysphagia/odynophagia - chronic issue but worsening. 07/26 peg placement, limited by anesthesia eval for sedation, consider next week severe protein calorie malnutrition/weight loss - patient reports difficulty eating, hopefully will improve with tube feeding hyponatremia - improved chronic hypoxic respiratory failure - due to COPD -remains stable, pulmonary med has signed off. - nebs, inhalers, h/o throat cancer - noted; just had direct laryngoscopy 2-3 weeks ago and there was no recurrence; also had biopsies in February - negative for dysplasia. h/o RUL non-small cell lung ca s/p lobectomy, plus h/o LLL non-small cell lung ca s/p high-dose radiation CAD - no ischemic symptoms at this time. HTN - BPs no distress chronic pain syndrome - cervical spine, lumbar spine pain - continue outpatient regimen of med[facility] needs occasional iv dilaudid hypothyroidism -clinically stable on synthroid; TSH 05/2017 was compensated. Total Time Spent: Greater than 30 minutes This includes examination of the patient, discharge planning, medication reconciliation, and communication with other providers. Discharge Instructions Please refer to the electronic Patient Visit Report (Discharge Instructions) for additional information. Problem Qualifiers (1) Bilateral pneumonia: Pneumonia type: due to unspecified organism Lung location: lower lobe of lung Qualified Codes: J18.9 - Pneumonia, unspecified organism (2) COPD (chronic obstructive pulmonary disease): COPD type: COPD with acute lower respiratory infection Qualified Codes: J44.0 - Chronic obstructive pulmonary disease with acute lower respiratory infection (3) Depression: Depression Type: major depressive disorder Major depression recurrence: recurrent Active/Remission status: in partial remission Qualified Codes: F33.41 - Major depressive disorder, recurrent, in partial remission
--- NOTE | 2017-07-27 15:43 | Progress Note ---
Subjective Date of Service: Jul 27, 2017. Subjective pt is doing well, he is disappointed that his home arrangements will not come thru for discharge today Problem List Medical Problems: (1) Chronic low back pain Permanent Comment: [facility] Status: Chronic (2) Confusion Status: Acute (3) COPD with exacerbation Status: Acute (4) Dehydration Status: Acute (5) Hypoxia Status: Acute (6) Hypoxia Status: Acute (7) PNA (pneumonia) Status: Acute (8) Pneumonitis Status: Acute (9) Tachycardia Status: Acute Social History Problems: (1) Status post spinal surgery Status: Acute Review of Systems Constitutional: + weakness, No fever, No chills Respiratory: No cough, No sputum, No shortness of breath, No dyspnea on exertion Abdomen: No pain, No nausea, No vomiting, No diarrhea Neurologic: No memory loss Psychiatric: No depression symptoms, No anxiety, No insomnia Objective Vital Signs Date Time Temp Pulse Resp B/P (MAP) Pulse Ox O2 Delivery O2 Flow Rate FiO2 07/27/17 14:07 85 16 97 Nasal Cannula 4.0 07/27/17 12:00 Room Air 07/27/17 11:19 36.6 85 20 174/86 (115) 95 Nasal Cannula 4.0 07/27/17 08:00 Room Air 07/27/17 07:48 91 16 100 Nasal Cannula 4.0 07/27/17 06:54 36.6 87 19 167/87 (113) 93 Nasal Cannula 2.0 07/27/17 04:23 36.5 103 18 167/86 (113) 92 Nasal Cannula 2.0 07/27/17 04:00 Room Air 07/27/17 00:00 Room Air 07/26/17 23:51 36.8 101 18 156/82 (106) 96 Nasal Cannula 07/26/17 20:22 36.6 97 20 178/74 (108) 94 Nasal Cannula 4.0 07/26/17 20:00 Room Air 07/26/17 19:04 102 16 96 Nasal Cannula 4.0 07/26/17 17:54 36.5 104 22 171/85 (113) 96 Room Air 07/26/17 15:46 36.6 92 20 187/91 (123) 96 Nasal Cannula 4.0 Physical Exam General Appearance: no apparent distress, + thin Eyes: PERRL, EOMI Respiratory/Chest: chest non-tender, lungs clear, normal breath sounds Cardiovascular: regular rate, rhythm, no murmur Abdomen: normal bowel sounds, soft, + tenderness Extremities: no pedal edema, no calf tenderness Laboratory Results Last 24 Hours Test 07/26/17 16:00 07/26/17 20:10 07/27/17 06:12 Bedside Glucose 82 mg/dl 79 mg/dl White Blood Count 8.63 K/uL Red Blood Count 4.86 M/uL Hemoglobin 12.9 g/dL Hematocrit 38.7 % Mean Corpuscular Volume 79.6 fL Mean Corpuscular Hemoglobin 26.5 pg Mean Corpuscular Hemoglobin Concent 33.3 g/dl RDW Standard Deviation 44.0 fL RDW Coefficient of Variation 15.2 % Platelet Count 429 K/uL Mean Platelet Volume 9.0 fL Sodium Level 135 mmol/L Potassium Level 3.8 mmol/L Chloride Level 101 mmol/L Carbon Dioxide Level 28 mmol/L Anion Gap 6.0 mmol/L Blood Urea Nitrogen 4 mg/dl Creatinine 0.51 mg/dl Est Creatinine Clear Calc Drug Dose 153.8 ml/min Estimated GFR () 130.7 Estimated GFR (Non- 112.8 BUN/Creatinine Ratio 8.2 Random Glucose 85 mg/dl Calcium Level 9.2 mg/dl Assessment and Plan (1) Bilateral pneumonia (2) COPD (chronic obstructive pulmonary disease) (3) Tachycardia (4) Lung cancer (5) Cancer of supraglottis (6) CORONARY ATHEROSCLEROSIS OF [place] CORONARY VESSEL (7) HYPERTENSION NOS (8) Hypothyroidism (9) Depression (10) Cervical stenosis of spinal canal (11) Chronic low back pain 67yo M with bilateral pneumonia influencing his chronic respiratory failure from COPD, and severe protein calorie malnutrition due to dysphagia from previous treatment of his throat cancer. no new changes awaiting for peg b/l pneumonia - suspicious for aspiration. has greatly improved will transition to Augmentin via peg once discharged speech therapy feels is at high risk for aspiration is not optimistic will improve dysphagia/odynophagia - chronic issue but worsening. 07/26 peg placement, will start tube feedings, will begin with continuous and move toward bolus as outpt severe protein calorie malnutrition/weight loss - patient reports difficulty eating, hopefully will improve with tube feeding hyponatremia - improved chronic hypoxic respiratory failure - due to COPD -remains stable, pulmonary med has signed off. - nebs, inhalers, h/o throat cancer - noted; just had direct laryngoscopy 2-3 weeks ago and there was no recurrence; also had biopsies in February - negative for dysplasia. h/o RUL non-small cell lung ca s/p lobectomy, plus h/o LLL non-small cell lung ca s/p high-dose radiation CAD - no ischemic symptoms at this time. HTN - BPs no distress chronic pain syndrome - cervical spine, lumbar spine pain - continue outpatient regimen of meds ([facility] needs occasional iv dilaudid hypothyroidism -clinically stable on synthroid; TSH 05/2017 was compensated. Problem Qualifiers (1) Bilateral pneumonia: Pneumonia type: due to unspecified organism Lung location: lower lobe of lung Qualified Codes: J18.9 - Pneumonia, unspecified organism (2) COPD (chronic obstructive pulmonary disease): COPD type: COPD with acute lower respiratory infection Qualified Codes: J44.0 - Chronic obstructive pulmonary disease with acute lower respiratory infection (3) Depression: Depression Type: major depressive disorder Major depression recurrence: recurrent Active/Remission status: in partial remission Qualified Codes: F33.41 - Major depressive disorder, recurrent, in partial remission
[2017-07-27] MEDS: LORAZEPAM 0.5 MG TAB PEG PRN (16:03)
[2017-07-27] MEDS: MIRTAZAPINE TAB 15 MG TAB PO SCH (19:19)
[2017-07-27] MEDS ORDERED: NURSING VERBAL MED ORDER ONE (19:45)
[2017-07-27] MEDS: LORAZEPAM 2 MG/ML 1 ML VIAL IV PRN (22:32)
[2017-07-28] VITALS (9 sets, daily range): BP systolic 109–157; BP diastolic 74–85; PULSE 93–110; TEMP 36.5–37.2; O2SAT 88–95
[2017-07-28] MEDS: HYDROmorphone INJ 0.5 MG/0.5 ML SYR IV PRN ×3 (00:07→14:34)
[2017-07-28] MEDS: LEVALBUTEROL 1.25MG/3ML NEB INH SCH ×4 (02:28→18:58)
[2017-07-28] MEDS: HYDROmorphone INJ 1 MG/ML SYR IV SCH ×2 (04:00→10:12)
[2017-07-28] MEDS: PIPERACILL/TAZOBAC IV 3.375 GM in DEXTROSE 5% 100ML 100 ML IV SCH (04:03)
[2017-07-28] MEDS: FIBERSOURCE HN 1000ML BAG PEG SCH ×2 (04:10)
[2017-07-28 08:36] LABS: BUN/CREATININE RATIO 11.7 (10-20); CALCIUM 8.9 mg/dl (8.5-10.1); CREATININE 0.62 mg/dl (0.60-1.40); POTASSIUM 3.3 mmol/L (3.5-5.1)
[2017-07-28] MEDS ORDERED: AMOXICILLIN/CLAVULANATE SUSP 200 MG/5 ML 50ML GT SCH (09:00)
[2017-07-28] MEDS: BUDESONIDE/FORMOTEROL FUMARATE 80/4.5 60 PUFFS/INHALER INH SCH ×2 (09:46→20:48)
[2017-07-28] MEDS ORDERED: POTASSIUM CHLORIDE 20 MEQ/15 ML UDC PEG STA (09:57)
[2017-07-28] MEDS: LEVOTHYROXINE 125 MCG TAB PEG SCH (10:07)
[2017-07-28] MEDS: LANSOPRAZOLE SOLUTAB 30 MG PEG SCH ×2 (10:08→20:50)
[2017-07-28] MEDS: AMOXICILLIN/CLAV POTAS 600 MG/42.9MG/5 ML 75 ML GT SCH ×2 (10:09→20:59)
[2017-07-28] MEDS: MULTIVITAMIN TAB PO SCH (10:09)
[2017-07-28] MEDS: LORAZEPAM 0.5 MG TAB PEG PRN (10:17)
[2017-07-28] MEDS: MAGNESIUM OXIDE 400 MG TAB PEG SCH ×2 (10:37→20:49)
--- NOTE | 2017-07-28 15:00 | Progress Note ---
Progress Note Date of Service Jul 28, 2017. Progress Note time - 1500 Patient requires a hospital bed so that he can be maintained at 30 degrees at all times while sleeping. He is at risk of aspiration due to severe dysphagia from prior laryngeal cancer and need for PEG tube feedings. He also has chronic pain syndrome and requires frequent changes in body position due to his chronic pain. Bari Kennedy MD
[2017-07-28] MEDS ORDERED: AMOX600S GT (16:27)
[2017-07-28] MEDS ORDERED: POTA10LI12 PEG (16:27)
[2017-07-28] MEDS ORDERED: OXYC10SO PEG (16:27)
[2017-07-28] MEDS ORDERED: NUTRLIQ14 PEG (16:27)
[2017-07-28] MEDS ORDERED: MGNO400 PEG (16:27)
[2017-07-28] MEDS ORDERED: POLYETHYLENE (MIRALAX) 17 GM PACK PEG ONE (16:53)
[2017-07-28] MEDS ORDERED: FENTANYL 25 MCG/HR TDSY TD SCH (17:00)
--- NOTE | 2017-07-28 18:36 | Progress Note ---
Subjective Date of Service: Jul 28, 2017. Subjective Pt evaluation today including: conversation w/ patient, conversation w/ family ( at bedside), physical exam, chart review, lab review, review of inpatient medication list Pain: chronic - back; mild abdominal at times PO Intake: npo, PEG only; tolerating tube feedings Voiding: no voiding problems tele stable overnight he offers no major complaints anxious for d/c home breathing is at baseline with minimal cough and mild WHYTE only Problem List Medical Problems: (1) Chronic low back pain Permanent Comment: [facility] Status: Chronic (2) Confusion Status: Acute (3) COPD with exacerbation Status: Acute (4) Dehydration Status: Acute (5) Hypoxia Status: Acute (6) Hypoxia Status: Acute (7) PNA (pneumonia) Status: Acute (8) Pneumonitis Status: Acute (9) Tachycardia Status: Acute Social History Problems: (1) Status post spinal surgery Status: Acute Review of Systems Constitutional: No fever Respiratory: No dyspnea at rest, No hemoptysis Cardiac: No chest pain Abdomen: + pain, No nausea, No vomiting Objective Vital Signs Date Time Temp Pulse Resp B/P (MAP) Pulse Ox O2 Delivery O2 Flow Rate FiO2 07/28/17 16:00 Nasal Cannula 3.0 07/28/17 15:29 37.2 104 20 157/85 (109) 93 Nasal Cannula 4.0 07/28/17 14:29 104 16 94 Room Air 07/28/17 12:00 Nasal Cannula 3.0 07/28/17 11:40 36.9 93 18 135/80 (98) 91 Nasal Cannula 4.0 07/28/17 08:25 36.6 102 24 109/74 (86) 94 07/28/17 08:00 Nasal Cannula 3.0 07/28/17 07:12 101 16 88 Room Air 07/28/17 04:03 36.5 105 22 137/82 (100) 95 Nasal Cannula 4.0 07/28/17 04:00 Nasal Cannula 3.0 07/28/17 00:00 Nasal Cannula 3.0 07/27/17 23:53 37.0 108 20 121/79 (93) 96 Nasal Cannula 3.0 07/27/17 20:00 Nasal Cannula 3.0 07/27/17 19:20 98 16 97 Nasal Cannula 3.0 07/27/17 18:47 36.5 85 20 162/74 (103) 97 Nasal Cannula 3.0 Physical Exam General Appearance: no apparent distress ENT: pharynx normal Neck: no JVD Respiratory/Chest: no respiratory distress, no accessory muscle use, + wheezing Cardiovascular: regular rate, rhythm, no gallop, no murmur Abdomen: normal bowel sounds, non tender, soft, no organomegaly, + pertinent finding (PEG in place; clean, insertion site w/o bleeding or erythema ) Extremities: no pedal edema Neurologic/Psychiatric: alert, oriented x 3 Laboratory Results Last 24 Hours Test 07/28/17 07:35 Sodium Level 135 mmol/L Potassium Level 3.3 mmol/L Chloride Level 100 mmol/L Carbon Dioxide Level 29 mmol/L Anion Gap 6.0 mmol/L Blood Urea Nitrogen 7 mg/dl Creatinine 0.62 mg/dl Est Creatinine Clear Calc Drug Dose 126.3 ml/min Estimated GFR () 120.7 Estimated GFR (Non- 104.1 BUN/Creatinine Ratio 11.7 Random Glucose 141 mg/dl Calcium Level 8.9 mg/dl Assessment and Plan (1) Bilateral pneumonia (2) COPD (chronic obstructive pulmonary disease) (3) Tachycardia (4) Lung cancer (5) Cancer of supraglottis (6) CORONARY ATHEROSCLEROSIS OF [place] CORONARY VESSEL (7) HYPERTENSION NOS (8) Hypothyroidism (9) Depression (10) Cervical stenosis of spinal canal (11) Chronic low back pain 67yo male with: 1. b/l pneumonia - likely due to aspiration. Improved. Day #7 of zosyn; d/c and change to augmentin 875mg BID x 3 more days. Completed course of zithromax. 2. dysphagia/odynophagia - s/p PEG insertion. 3. severe protein calorie malnutrition/weight loss - hopefully will improve with tube feedings. Likely was due to lack of oral intake as a result of #2. Had laryngoscopy in June showing no recurrent laryngeal cancer. 4. hyponatremia - resolved. Repeat BMP am to ensure stability., 5. chronic hypoxic respiratory failure - due to COPD - stable on home O2 amount. 6. COPD - stable. Despite wheezing on exam patient feels he is at baseline. Cont nebs, inhalers, etc in meantime. 7. h/o throat cancer - noted; just had direct laryngoscopy 2-3 weeks ago and there was no recurrence; also had biopsies in February - negative for dysplasia. 8. h/o RUL non-small cell lung ca s/p lobectomy 9. h/o LLL non-small cell lung ca s/p high-dose radiation 10. CAD - no ischemic symptoms at this time. 11. HTN - controlled. 12. chronic pain syndrome - cervical spine, lumbar spine pain - since he is now PEG-dependent we cannot use long-acting oxycontin. Spoke with pharmacy - will convert the oxycontin to fentanyl patch 25mcg q3days. I explained to him why we are making this change. Continue the short-acting oxycodone in liquid form via PEG for breakthrough pain. Stop IV dilaudid now. 13. hypothyroidism - cont synthroid as is; TSH 05/2017 was compensated. 14. DVT proph - lovenox 40mg daily. 15. anxiety - d/c ativan. Buspar 7.5mg BID. 16. FEN - tube feedings are at goal; replace K; repeat BMP/mag in am. At discharge will use nutren 2.0 - 1 carton (250ml) QID. Will need free water flushes and follow-up labs to ensure stability. updated. Anticipate d/c in am. See separate note re: hospital bed for home. Continued [facility] stay due to: inadequate oral pain control Discharge planning: home with home health Problem Qualifiers (1) Bilateral pneumonia: Pneumonia type: due to unspecified organism Lung location: lower lobe of lung Qualified Codes: J18.9 - Pneumonia, unspecified organism (2) COPD (chronic obstructive pulmonary disease): COPD type: COPD with acute lower respiratory infection Qualified Codes: J44.0 - Chronic obstructive pulmonary disease with acute lower respiratory infection (3) Depression: Depression Type: major depressive disorder Major depression recurrence: recurrent Active/Remission status: in partial remission Qualified Codes: F33.41 - Major depressive disorder, recurrent, in partial remission
[2017-07-28] MEDS: OXYCODONE HCL IR 5 MG TAB (IMMEDIATE RELEASE) PEG PRN (18:39)
[2017-07-28] MEDS ORDERED: ZOLPIDEM TARTRATE 5 MG TAB PEG PRN (19:15)
[2017-07-28] MEDS: MIRTAZAPINE TAB 15 MG TAB PO SCH (20:49)
[2017-07-28] MEDS: BusPIRone 15 MG TAB PEG SCH (22:35)
[2017-07-28] MEDS: CHECK FENTANYL PATCH PLACEMENT SCH (23:33)
[2017-07-29] MEDS: LEVALBUTEROL 1.25MG/3ML NEB INH SCH ×2 (01:34→07:07)
[2017-07-29 03:15] VITALS: BP 115/75; PULSE 95; TEMP 36.6; O2SAT 94
[2017-07-29] MEDS: LEVOTHYROXINE 125 MCG TAB PEG SCH (05:55)
[2017-07-29] MEDS: OXYCODONE HCL IR 5 MG TAB (IMMEDIATE RELEASE) PEG PRN (06:01)
[2017-07-29 07:08] VITALS: PULSE 94; O2SAT 97
[2017-07-29 07:44] LABS: BUN/CREATININE RATIO 17.5 (10-20); CALCIUM 9.2 mg/dl (8.5-10.1); CREATININE 0.53 mg/dl (0.60-1.40); MAGNESIUM 1.7 mg/dl (1.8-2.4); POTASSIUM 3.7 mmol/L (3.5-5.1)
[2017-07-29] MEDS: CHECK FENTANYL PATCH PLACEMENT SCH (08:00)
[2017-07-29] MEDS ORDERED: POLYETHYLENE (MIRALAX) 17 GM PACK PEG SCH (09:00)
[2017-07-29] MEDS ORDERED: MAGNESIUM SULFATE 1GM / D5W 1 GM in PREMIXED IN D5W 100 ML IV STA (09:13)
[2017-07-29] MEDS: AMOXICILLIN/CLAV POTAS 600 MG/42.9MG/5 ML 75 ML GT SCH (10:01)
[2017-07-29] MEDS: MULTIVITAMIN TAB PO SCH (10:01)
[2017-07-29] MEDS: BusPIRone 15 MG TAB PEG SCH (10:02)
[2017-07-29] MEDS: BUDESONIDE/FORMOTEROL FUMARATE 80/4.5 60 PUFFS/INHALER INH SCH (10:03)
[2017-07-29] MEDS: LANSOPRAZOLE SOLUTAB 30 MG PEG SCH (10:03)
[2017-07-29] MEDS: MAGNESIUM OXIDE 400 MG TAB PEG SCH (10:04)
[2017-07-29 11:11] VITALS: BP 111/75; PULSE 97; TEMP 36.6; O2SAT 98
[2017-07-29] MEDS ORDERED: DRGTP25 TOP (12:42)
[2017-07-29] MEDS ORDERED: ZOLP10TA PEG (12:42)
--- NOTE | 2017-07-29 12:56 | Discharge Instructions ---
Discharge Instructions Date of Service Jul 29, 2017. Admission Reason for Admission: Bilateral Pneumonia Discharge Discharge Diagnosis / Problem: Pneumonia; PEG tube placement due to difficulty swallowing Discharge Goals Goal(s): Learn about illness, Diagnostic testing, Therapeutic intervention Activity Recommendations Activity Limitations: as noted below May shower at this time, but do not immerse or take a tub bath due to the feeding tube. During your shower try to keep the PEG tube clean & dry. . Instructions / Follow-Up Instructions / Follow-Up From Dr. Kennedy - 1. pneumonia - you have 3 more days of antibiotic. Please give the antibiotic liquid via the feeding tube twice daily for 3 days. Start this TONIGHT> 2. feedings via PEG tube - * use Nutren 2.0 -- 1 carton four times a day * please give yourself water 150ml (5 ounces) four times a day via your PEG tube as well * after you give yourself medications through your PEG tube please flush the tube with about 30ml of water * if you have any problems with your feeding tube please contact the GI doctor through [facility] (Dr. Dari Aguila) 3. pain medications - * STOP your oxycontin that you were previously taking (your previous regimen was 40mg in the AM, 20mg in the afternoon, and 40mg late in the day) * would recommend you bring those pills to the pharmacist to discard * also have the pharmacist discard your short-acting oxycodone pills * start fentanyl patch and replace every 3 days * you are scheduled to change the patch the evening of 07/31/17 * new prescription provided * may use oxycodone liquid, 10ml every 6 hours as needed for pain - give via your PEG tube; new prescription provided * additional refills [facility] 4. anxiety - * may take buspar 7.5mg via your PEG tube every 12 hours as needed for anxiety * 7 day supply given * additional refills would have to be obtained [facility] the [facility] 5. Please take a potassium and magnesium supplement daily. Give via your PEG tube. 6. [facility] the [facility] within [facility]-7 days. You will need a repeat "BMP" and magnesium level checked during that visit. 7. Return to [facility] if - * you see drainage, redness, or swelling around the PEG tube site * you develop fever over 100.5 degrees * you develop cough or shortness of breath * your pain is not controlled * any other concerns Current Hospital Diet Patient's current hospital diet: Discharge Diet Recommended Diet: N/A Procedures Procedures Performed: PEG tube placement Pending Studies Studies pending at discharge: no Medical Emergencies . Who to Call and When: Medical Emergencies: If at any time you feel your situation is an emergency, please call 911 immediately. . Non-Emergent Contact Non-Emergency issues call your: Primary Care Provider Call Non-Emergent contact if: temperature is above 100.5, your pain is not controlled, your pain is worsening, your pain is unusual for you, your pain is concerning you, wound has increased drainage, wound has increased redness, wound has increased pain, you have any medication questions . . "Provider Documentation" section prepared by Bari Kennedy. . Control Systems Developer Recommendations Control Systems Developer Recommendations: Please always flush your tube after using any medication and usually with about 250 ml three times a day Please use liquid children medication for over the counter needs Follow up with your primary care in case your prescribed medications need to be adjusted to your new route VTE Core Measure Inpt VTE Proph given/why not?: ROSIO [facility] [place] Drug Monitoring Program Search Results: patient reviewed within database, no issues identified
[2017-07-29] MEDS ORDERED: BUSP15TA70 PEG (12:57)
[2017-07-29] MEDS ORDERED: OXYC10SO PEG (12:58)
[2017-07-29 13:20] VITALS: BP 111/75; PULSE 97; TEMP 36.6; O2SAT 98
[2017-07-31] MEDS ORDERED: FENTANYL PATCH REMOVE & WASTE SCH (17:00)
== END 2017-07-29 14:20 | disposition home health service (06) | DRG 177 ==
LOC: C.EDB 13:32 → C.2T 15:41 → ENRESERV 16:17
PROVIDERS: ADMIT Family Medicine; ATTEND Internal Medicine
PROC: 0DH64UZ Insertion of Feeding Device into Stomach, Percutaneous Endoscopic Approach (ICD-10-PCS; principal; 2017-07-26 11:23)
PROC: 0DJ68ZZ Inspection of Stomach, Via Natural or Artificial Opening Endoscopic (ICD-10-PCS; principal; 2017-07-26 11:23)
DX: J69.0 Pneumonitis due to inhalation of food and vomit (principal); E43 Unspecified severe protein-calorie malnutrition; J96.21 Acute and chronic respiratory failure with hypoxia; J44.0 Chronic obstructive pulmonary disease with (acute) lower respiratory infection; E87.1 Hypo-osmolality and hyponatremia; J44.1 Chronic obstructive pulmonary disease with (acute) exacerbation; F32.9 Major depressive disorder, single episode, unspecified; I10 Essential (primary) hypertension; E03.9 Hypothyroidism, unspecified; I25.10 Atherosclerotic heart disease of native coronary artery without angina pectoris; R13.10 Dysphagia, unspecified; G89.4 Chronic pain syndrome; M54.2 Cervicalgia; M54.5 Low back pain; Z79.899 Other long term (current) drug therapy; Z87.891 Personal history of nicotine dependence; Z85.118 Personal history of other malignant neoplasm of bronchus and lung; Z85.818 Personal history of malignant neoplasm of other sites of lip, oral cavity, and pharynx

== ENCOUNTER → 2017-09-07 | Outpatient (CLI) | payer OTHER ==
[~2017-09-07] MED LIST changes: +AMOX600S GT; -ASPI325T45 PO; -AZIT-57 PO; +BUSP15TA70 PEG; -CYCL10TA6 PO; +DRGTP25 TOP; -IPRA1AER2 INH; +LANS30TA3 PEG; +LEVO125T5 PEG; -LEVO125T5 PO; +MGNO400 PEG; +MIRT15TA53 PEG; -MIRT15TA53 PO; -MULT-506 PO; -NAPR1TAB9 PO; -NRN100 PO; +NRN300 PEG; +NUTRLIQ14 PEG; +OPTIRAY 320 IV PRN; +OXYC10SO PEG; -OXYC1CAP5 PO; -OXYC20TA50 PO; +POTA10LI12 PEG; -PRED10TA PO; -PRLSR20 PO; +SENN8.6T36; +SERT-234 PEG; -SERT-234 PO; +SYMIN/8045 INH; -WHEATAB2 PO; -ZNTT/150 PO; +ZOLP10TA PEG; -ZOLP10TA PO
--- NOTE | 2017-09-07 14:58 | DIAGNOSTIC IMAGING REPORT ---
(CHEST) THORAX WITH CLINICAL HISTORY: 67 years-old Male presenting with HX OF LUNG CA, follow-up. TECHNIQUE: Multidetector CT imaging of the chest was performed after the administration of intravenous contrast. IV contrast: 93 mL of Optiray 320. A dose lowering technique was used consistent with the principles of ALARA (as low as reasonably achievable). COMPARISON: 05/10/2017. CT DOSE (mGy.cm): The estimated cumulative dose is 330.84 mGy.cm. 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 On soft tissue windows, normal thyroid and thoracic inlet. No axillary or supraclavicular lymphadenopathy. Prominent though subcentimeter lymph node anterior to the left brachiocephalic vein in the anterior mediastinum measuring 7 mm in the short axis (series 4 image 78), unchanged. Subcentimeter prominent precarinal lymph nodes unchanged. Allowing for the phase of contrast, no hilar lymphadenopathy is evident. Atherosclerosis of the aorta. Normal heart size. Coronary artery calcification. No pericardial or pleural effusion. Mild intrahepatic biliary duct dilatation. Duodenal diverticulum suspected. Gastrostomy tube in place. On lung windows, post surgical changes of right upper lobectomy. Architectural distortion of the right lung with hyperinflation of the right middle and lower lobes. Spiculated nodule centrally in the right lower lobe measures 1.2 cm, which has increased in size previously measuring 5 mm in 12/28/2016. Additionally, there is a new spiculated nodule peripherally in the right lower lobe with a central solid component measuring 4 mm and peripheral groundglass opacity (series 4 image 177). The diameter of the groundglass portion measures 1.6 cm. Additional scattered nodularity throughout the right lung. Emphysema. Previously noted central nodule in the left lower lobe immediately anterior to the anterior basal segmental bronchus is ill-defined with surrounding architectural distortion making accurate measurement difficult. This appearance is better delineated on the current exam given less respiratory artifact and is essentially unchanged in size from prior. The anterior basal segmental bronchus is obliterated. This is similar to prior exam and may in part reflect posttreatment change. The previously noted nodular opacities dependently in the left lower lobe are again seen. There is also subpleural band-like opacities. More subtle peripheral nodular opacities evident in the lingula. A focal solid irregular nodule measuring 5 mm in the lingula (series 4 image 247) may be related to surrounding nodularity. On bone windows, partially visualized anterior cervical fusion hardware. This degenerative change of the spine. IMPRESSION: 1. Interval development of a spiculated partially solid, partially subsolid nodule in the right lower lobe. The overall diameter of the lesion measures 1.6 cm though the solid portion measures 4 mm. Attention on follow-up given the suspicious morphology. Alternatively, this could relate to multifocal nodularity in the right lower lobe, which could be sequelae of chronic aspiration or infection. 2. Interval increase in size of a spiculated central solid nodule in the right lower lobe measuring 1.2 cm. This is highly suspicious for neoplasm. Attention on follow-up. 3. Stable appearance of the central spiculated nodule in the left lower lobe. Regional architectural distortion and difficulty measuring this nodule may relate to posttreatment change. 4. Nodular opacities in the lingula and left lower lobe, which have overall not significantly changed since the prior exam. These could also relate to chronic aspiration or infection. 5. Post surgical changes of right upper lobectomy. 6. No pathologically enlarged lymph nodes by CT size criteria. The report will be called/faxed according to standard departmental protocol. Electronically signed by: Francois Marin M.D. 09/07/2017 2:57 PM Dictated Date/Time: 09/07/2017 2:38 PM
== END | disposition home or self-care (01) ==
LOC: C.CTS 14:02
PROVIDERS: ATTEND Physician Assistant Medical
DX: C34.11 Malignant neoplasm of upper lobe, right bronchus or lung (principal); C34.12 Malignant neoplasm of upper lobe, left bronchus or lung; Z90.2 Acquired absence of lung [part of]

== ENCOUNTER → 2017-09-16 | Outpatient (CLI) | payer OTHER ==
[~2017-09-16] MED LIST changes: -OPTIRAY 320 IV PRN
[2017-09-16 15:03] VITALS: BP 155/81; PULSE 114; TEMP 37.1; O2SAT 93
--- NOTE | 2017-09-16 16:13 | Radiation Oncology Follow-Up ---
Radiation Oncology Follow-Up Date of Visit Sep 16, 2017. Reason For Visit To discuss recheck CT Radiation Completion Date 02/05/17 Diagnosis (1) Lung cancer Status: Chronic Stage: l Permanent Comment: Status post bronchoscopy and biopsy 06/03/2016 right upper lobectomy and lymph node dissection 06/25/2016 Squamous cell carcinoma Stage pT1b pN0M0 Development of a left lower lobe pulmonary nodule Status post bronchoscopy and biopsy pathology nondiagnostic 06/25/2016 Status post SBRT completed 02/05/2017. 5 fractions were given for a total of 5000 cGy. Last Edited By: Sirisha You on Feb 18, 2017 10:09 History of Present Illness Mr. Castro was initially seen by me in referral on 12/26/2009. At that time he was a 59-year-old male with a long history of cigarette smoking and alcohol use. He had smoked 2 packs a day for most of his adult life. The noted at that time right-sided sore throat an otalgia that it been present since August. It was treated with antibiotics without improvement. He was seen by ENT and examination revealed a lesion on the right false cord. A direct laryngoscopy and biopsy confirmed an endophytic tumor involving the right false vocal cord which approach the anterior commissure. The inferior edge of the tumor seemed to be extending to the ventricle and posteriorly the tumor extended towards the vocal process of the arytenoid. There was no involvement of the piriform sinus. Biopsy confirmed squamous cell carcinoma moderately differentiated. Accession #[id number]. A staging workup with CT scan of the soft tissue of the neck and PET scan showed hypermetabolic activity along the anterior aspect of the right vocal cord extending into the right super glottic region. There was a borderline enlarged mildly FDG avid lymph node in the adjacent right neck. 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 Patient was treated with PEG tube for prophylactic feeding. Patient ultimately was treated with definitive combined chemoradiation. The radiation consisted of IMRT and started on 01/13/2010 and completed on 2009. He received a total of 34 fractions and a total dose of 72 Gy. The patient had the expected sequelae with initial loss of taste swallowing changes and decreased saliva. Ultimately and gradually his taste returned to normal. His dry mouth improved as did his swallowing. The patient has been followed and has not shown evidence of recurrence. A restaging PET/CT scan from 2013 showed asymmetric metabolic uptake at the level of the larynx consistent with his history of treatment. There were no pathologic lymph nodes in the neck or chest and no evidence of recurrence. In December 2015 the patient noted the onset of some weakness of the left arm. He was evaluated by Dr. Clay and was found to have cervical spondylolysis. On Dr. Clay performed an anterior corpectomy and ACDF. The patient tolerated the procedure well. Ultimately the left arm movement and strength returned to normal. However patient developed some low right neck discomfort which was at the site of the surgical procedure. He again developed some difficulty swallowing which over time has resolved. He did have episodes of hemoptysis and increasing hoarseness. These have also improved over time. A CT angiogram was performed on 01/10/2016. No emboli were identified. However there was an indeterminate 1.4 cm right upper lobe pulmonary nodule. 81.0 x 0.3 cm tubular opacity was noted in the right upper lobe and a 6 mm left lower lobe pulmonary nodule was appreciated. Following guidelines for pulmonary nodules a CT of the chest was performed on 04/20/[address] without contrast was performed in anticipation of a navigational bronchoscopy on 06/01/2016. This showed an increase in the size of a lobulated spiculated mass within the right upper lobe presently measuring 3.2 x 2.0 cm. This is felt to be consistent with a primary bronchogenic malignancy. A stable 1.2 cm left lower lobe nodule abutting the major fissure was appreciated. Despite the fact that this remains stable in size a secondary bronchogenic malignancy remained the diagnosis of exclusion. A 3 mm nodule was seen in the lingula too small to characterize. Dr. Hayes performed a navigational bronchoscopy with biopsy of the left lower lobe and right upper lobe masses using the super dimensional electromagnetic navigational bronchoscopy system on 06/03/2016. Bronchial brushings of the left lower lobe showed no malignant cells. Case: [id number]. Bronchial brushings from the right upper lobe were positive for malignant cells consistent with non-small cell carcinoma. Case: [id number]. Transbronchial aspirate of the right upper lobe was positive for malignant cells consistent with a non-small cell carcinoma. Case: [id number]. Right upper lobe bronchial washings were negative. On 06/25/2016 the patient underwent navigational bronchoscopy with biopsy of the left lower lobe mass followed by a thoracoscopic right upper lobectomy and mediastinal lymphadenectomy. The left lower lobe biopsy was benign. The right upper lumpectomy confirmed a poorly differentiated carcinoma with squamous differentiation and apparent focal glandular (adenocarcinoma) differentiation. This was a poorly differentiated grade 3 of 4. There was no visceral pleural invasion identified and the margins were negative. The lesion measured 2.5 cm with the closest margin the bronchial/vascular/parenchymal at 5.5 cm. No lymphovascular invasion was seen. 12 mediastinal nodes worse sampled and all 12 were negative. The final pathologic stage was a pT1b pN0. Case: [id number]. The left lower lobe transbronchial biopsy was positive for malignant cells consistent with a non-small cell carcinoma. Case: [id number]. With these findings no adjuvant therapy was required. At this time patient continued to be followed by Dr. Chano Saldana, Dr. Pritesh Hayes and Dr. Obed Gaytan. On 11/02/2016 patient underwent a repeat PET/ CT scan. The activity in the neck was felt to be physiologic. There were postsurgical changes in the right upper lobectomy. There was mildly FDG avid right hilar lymph node with SUV max of 3.7 and a mildly FDG avid 7 mm right upper lobe opacity with an SUV max of 2.1. The previously identified FDG avid right upper lobe pulmonary nodule was no longer visualized. There was nonspecific subcentimeter lingular nodules which are minimally FDG avid with SUV max measuring up to 1.8. There was an 8 mm right lower lobe pulmonary nodule with mild increased FDG activity and an SUV max of 3.2. A CT scan of the chest on 12/28/2016 with IV contrast was performed. This again showed postsurgical findings of a right upper lobectomy. A prominent high right paratracheal lymph node was unchanged since PET/CT of 11/02/2016 measuring 1.0 x 0.8 cm. A small right pleural effusion was also unchanged. Multiple ill- defined pulmonary nodules are seen throughout the lungs. Overall there had been improvement compared to the study of 11/02/2016. A 1.2 cm left lower lobe nodule also seen previously was unchanged. A CT of the soft tissue of the neck was also performed on this date. The nasopharynx, oropharynx and laryngeal parents are normal in appearance. The pharyngeal airway was widely patent. There was no evidence of mass lesion identified. There was no cervical lymphadenopathy seen. There was a proximate 50% stenosis of the proximal right internal carotid artery secondary to calcified and soft plaque. The carotid arteries are otherwise patent bilaterally. There was no lytic or blastic lesions identified. There was evidence of the corpectomy at C4 an anterior fusion from C3 to C7. Continued follow-up and examination by Dr. Obed Sequeira revealed some subtle changes on his laryngoscopic examination which showed more fullness in the right arytenoid and area epiglottic fold region. Also noted was decreased mobility of his right true vocal cord compared with previous examinations. The patient is also complaining of some persistent but intermittent right neck discomfort and persistent hoarseness. It is unclear whether these changes were related to his recent ACDF surgery but it is felt that it would be important to rule out recurrent malignancy although this is felt to be less likely. The patient is scheduled for an endoscopic evaluation and biopsy on 01/27/2017. We were asked to see this patient by Dr. Saldana to evaluate the potential for stereotactic treatment of the left lower lobe nodule. Stereotactic treatment was given and was completed 02/05/2017. He received 5 fractions for a total of 5000 cGy. Interim History He has been hospitalized twice since his last visit. The admissions were for pneumonia. He steadily improved and was discharged home. His respiratory status is currently stable. He has oxygen is at 2 L/m. He feels his appetite is good and weight is stable. He has no difficulties with swallowing. He had a recheck CT scan of the chest 09/07/2017. This had been scheduled as a routine follow-up. Allergies Coded Allergies: NSAIDs (Verified Adverse Reaction, Mild, upset stomach, 07/21/17) Home Medications Scheduled Budesonide/Formoterol Fumarate (Symbicort 80/4.5 Inhaler), 2 PUFFS INH BID Fentanyl (Fentanyl), 25 MCG TOP Q3D Gabapentin (Gabapentin), 1 CAP PEG HS Lansoprazole (Prevacid Solutab), 30 MG PEG DAILY Levothyroxine Sodium (Levothyroxine Sodium), 1 TAB PEG DAILY Magnesium Oxide (Magnesium-Oxide), 400 MG PEG DAILY Mirtazapine (Mirtazapine), 7.5 MG PEG HS Nutritional Supplements (Nutren 2.0), 250 ML PEG QID Potassium Chloride 40 Meq/15 Ml (Potassium Chloride 40 Meq/15 Ml), 4 ML PEG DAILY Sennosides-Docusate Sodium (Docusate Sodium/Senna), BID Sertraline (Zoloft), 100 MG PEG DAILY Zolpidem Tartrate (Ambien), 5 MG PEG HS Scheduled PRN Buspirone Hcl (Buspar), 7.5 MG PEG BID PRN for anxiety Levalbuterol Hcl (Levalbuterol Hcl), 1.25 MG INH TID PRN for SOB/Wheezing Review of Systems Gastrointestinal: Symptoms: WNL Oral: Symptoms: No Problems Respiratory: Symptoms: SOB At Rest Respiratory Comments: lung cancer Urinary: Symptoms: WNL Skin: Symptoms: No Problems Physical Exam Vital Signs Date Time Temp Pulse Resp B/P (MAP) Pulse Ox O2 Delivery O2 Flow Rate FiO2 09/16/17 15:03 37.1 114 22 155/81 93 Fatigue: None General Appearance: no apparent distress Eyes: normal inspection, EOMI ENT: normal ENT inspection, hearing grossly normal Neck: no adenopathy, thyroid normal Respiratory/Chest: no respiratory distress, no accessory muscle use, + wheezing (mild wheeze bilaterally lobe lobes) Cardiovascular: regular rate, rhythm, no gallop, no murmur Extremities: no pedal edema Neurologic/Psychiatric: no motor/sensory deficits, alert, normal mood/affect Skin: normal color Pain Management Patient Reports Pain: Yes Side: Mid Pain Location: back, right chest, neck Patient Preferred Pain Scale: 0 - 10 Initial Pain Intensity: 7.0 Pain Management Plan He has regular pain medication. Pain management is not required to our office. Laboratory Laboratory Results: not applicable Pathology Pathology Results: not applicable Imaging Imaging Studies: were reviewed, and pertinent findings noted below Imaging Comments Patient: BARBARA CASTRO Address1: [address] [facility] Rec: [id number] Address2: Acct ID: [id number] [facility] Zip: [place] [address] Date: 1950 Sex: M Room/Bed: Ref Phy: Chapito Milner D.O. SC: KADEEM Att Phy: Sirisha You PA-C Report #: [id number] Rhoda Phy: Chapito Milner D.O. Test: CX Admit Phy: Rivet Hammer Machine Operator: NABOR Interpreting Phy: Francois Marin MD Diagnosis: HX OF LUNG CA Ordering Phy: Sirisha You PA-C Service Date: 09/07/17 Admit Date: 09/07/17 MNE: [id number] CONF: DICTATED BY: Francois Marin MD]] CC: Sirisha You PA-C Shunk, Brian R., D.O. Endcc: [~ rep ct add3]] (CHEST) THORAX WITH CLINICAL HISTORY: 67 years-old Male presenting with HX OF LUNG CA, follow-up. TECHNIQUE: Multidetector CT imaging of the chest was performed after the administration of intravenous contrast. IV contrast: 93 mL of Optiray 320. A dose lowering technique was used consistent with the principles of ALARA (as low as reasonably achievable). COMPARISON: 05/10/2017. CT DOSE (mGy.cm): The estimated cumulative dose is 330.84 mGy.cm. 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 On soft tissue windows, normal thyroid and thoracic inlet. No axillary or supraclavicular lymphadenopathy. Prominent though subcentimeter lymph node anterior to the left brachiocephalic vein in the anterior mediastinum measuring 7 mm in the short axis (series 4 image 78), unchanged. Subcentimeter prominent precarinal lymph nodes unchanged. Allowing for the phase of contrast, no hilar lymphadenopathy is evident. Atherosclerosis of the aorta. Normal heart size. Coronary artery calcification. No pericardial or pleural effusion. Mild intrahepatic biliary duct dilatation. Duodenal diverticulum suspected. Gastrostomy tube in place. On lung windows, post surgical changes of right upper lobectomy. Architectural distortion of the right lung with hyperinflation of the right middle and lower lobes. Spiculated nodule centrally in the right lower lobe measures 1.2 cm, which has increased in size previously measuring 5 mm in 12/28/2016. Additionally, there is a new spiculated nodule peripherally in the right lower lobe with a central solid component measuring 4 mm and peripheral groundglass opacity (series 4 image 177). The diameter of the groundglass portion measures 1.6 cm. Additional scattered nodularity throughout the right lung. Emphysema. Previously noted central nodule in the left lower lobe immediately anterior to the anterior basal segmental bronchus is ill-defined with surrounding architectural distortion making accurate measurement difficult. This appearance is better delineated on the current exam given less respiratory artifact and is essentially unchanged in size from prior. The anterior basal segmental bronchus is obliterated. This is similar to prior exam and may in part reflect posttreatment change. The previously noted nodular opacities dependently in the left lower lobe are again seen. There is also subpleural band-like opacities. More subtle peripheral nodular opacities evident in the lingula. A focal solid irregular nodule measuring 5 mm in the lingula (series 4 image 247) may be related to surrounding nodularity. On bone windows, partially visualized anterior cervical fusion hardware. This degenerative change of the spine. IMPRESSION: 1. Interval development of a spiculated partially solid, partially subsolid nodule in the right lower lobe. The overall diameter of the lesion measures 1.6 cm though the solid portion measures 4 mm. Attention on follow-up given the suspicious morphology. Alternatively, this could relate to multifocal nodularity in the right lower lobe, which could be sequelae of chronic aspiration or infection. 2. Interval increase in size of a spiculated central solid nodule in the right lower lobe measuring 1.2 cm. This is highly suspicious for neoplasm. Attention on follow-up. 3. Stable appearance of the central spiculated nodule in the left lower lobe. Regional architectural distortion and difficulty measuring this nodule may relate to posttreatment change. 4. Nodular opacities in the lingula and left lower lobe, which have overall not significantly changed since the prior exam. These could also relate to chronic aspiration or infection. 5. Post surgical changes of right upper lobectomy. 6. No pathologically enlarged lymph nodes by CT size criteria. The report will be called/faxed according to standard departmental protocol. Electronically signed by: Francois Marin M.D. 09/07/2017 2:57 PM Dictated Date/Time: 09/07/2017 2:38 PM Additional Studies Plan: His case had been presented at the lung cancer conference. The images were reviewed. It was felt the patient should have a PET/CT. He was seen on Wednesday by Dr. Winter. His office is currently in the process of scheduling the PET/CT. He has recheck appointment currently scheduled with Dr. Saldana 1 09/23/2017. We will continue to follow his electronic medical record for review of the PET/CT. This will then be discussed and decision will be made in regards to any further treatment. Total Time In Follow-Up I spent 20 minutes speaking to the patient and performing examination. I spent 15 minutes reviewing information in completing this note. Copy To Chano Saldana MD; Chapito Milner,D.O.; Sterling Winter MD; Pritesh Hayes MD
== END | disposition home or self-care (01) ==
LOC: C.ONC 14:46
PROVIDERS: ATTEND Physician Assistant Medical
DX: Z08 Encounter for follow-up examination after completed treatment for malignant neoplasm (principal); Z92.3 Personal history of irradiation; Z85.118 Personal history of other malignant neoplasm of bronchus and lung

== ENCOUNTER → 2017-10-04 | Outpatient (CLI) | payer OTHER ==
[~2017-10-04] MED LIST changes: -AMOX600S GT; +ATRINS NEB; +BUSP5TAB59 PEG; +DOCUSATE PEG; +GABA-113 PEG; +MAGN400T6 PEG; +POTA40IN PEG; +SERT100T PEG
--- NOTE | 2017-10-04 13:41 | DIAGNOSTIC IMAGING REPORT ---
PET/CT SKULL-THIGH CLINICAL HISTORY: 67 years-old Male presenting with NON SMALL CELL LUNG CANCER, history of head and neck cancer. TECHNIQUE: PET/CT was performed from the vertex through the proximal thighs following the intravenous administration of 10.25 mCi of F18-FDG. Blood glucose level 95 mg/dL. The injection was performed at 9:32 AM and imaging began at 10:45 AM of the head and neck and 11:00 AM of the neck to size. Unenhanced CT was performed for attenuation correction purposes and anatomic localization. COMPARISON: 11/02/[address] from 09/07/2017. CT DOSE (mGy.cm): The estimated cumulative dose is 969.17. FINDINGS: Head and neck: Effacement of the bilateral piriform sinuses greater on the left with apparent thickening of the aryepiglottic folds (max SUV 5.42). Postsurgical changes of right neck dissection and/or radiation suggested. No FDG avid or enlarged lymph nodes in the neck. Minimal mucosal thickening in the paranasal sinuses. Chest: No axillary, supraclavicular, or mediastinal lymphadenopathy. Evaluation of the joyce limited without intravenous contrast. Atherosclerosis of the aorta. Normal heart size, however, FDG avidity of the right and left ventricular myocardium suggests pulmonary arterial and systemic hypertension. Coronary artery calcification. Trace right pleural effusion. Emphysematous changes at the apices. FDG avid focus in the right perihilar region (max SUV 5.40; series 2 image 49), poorly defined on anatomic imaging and better seen on prior chest CT from 09/07/2017. The previously noted partially solid partially groundglass nodule in the right lower lobe on recent chest CT is not FDG avid and not clearly visualized on anatomic imaging. Architectural distortion of the right lung secondary to right upper lobectomy. Debris noted in the right mainstem bronchus. Dependent nodular opacities greater on the left with suggestion of bronchial wall thickening, likely chronic aspiration. Abdomen and pelvis: Normal physiologic distribution of radiotracer in the gastrointestinal and genitourinary tracts. Exophytic photopenic lesion in the lateral interpolar region of the right kidney likely hemorrhagic or proteinaceous cyst. No FDG avid lymphadenopathy or mass lesion. Circumferential bladder wall thickening likely secondary to chronic outlet obstruction in the setting of prostatomegaly. Diverticulosis. Gastrostomy tube in place. Musculoskeletal: No FDG-avid or destructive osseous lesion. Anterior cervical spinal fusion hardware noted. Degenerative changes of the spine. Posttraumatic deformity of the left inferior and superior pubic rami suggested. IMPRESSION: 1. Follow-up PET/CT demonstrates focal FDG avidity in the region of the left piriform sinus and aryepiglottic folds. Direct visualization advised as this raises concern for neoplasm. Alternatively, SUV values in this region could be affected by the adjacent anterior cervical spinal fusion hardware. 2. FDG avid right lower lobe central lung nodule, which is highly concerning for neoplasm or metastatic disease. 3. No FDG avid lymphadenopathy. Electronically signed by: Francois Marin M.D. 10/04/2017 1:40 PM Dictated Date/Time: 10/04/2017 1:06 PM
== END | disposition home or self-care (01) ==
LOC: C.PET 08:35
PROVIDERS: ATTEND Family Medicine
DX: C34.30 Malignant neoplasm of lower lobe, unspecified bronchus or lung (principal); R91.1 Solitary pulmonary nodule

== ENCOUNTER → 2017-10-21 | Outpatient (CLI) | payer OTHER ==
--- NOTE | 2017-10-21 09:41 | DIAGNOSTIC IMAGING REPORT ---
CT OF THE CHEST WITHOUT IV CONTRAST CLINICAL HISTORY: Pulmonary nodule. Non-small cell lung cancer. History of head and neck cancer. COMPARISON STUDY: Chest CT September 07, 2017 and PET/CT September 03, 2017. CT DOSE: 257.99 mGy.cm TECHNIQUE: Axial images of the chest were obtained without IV contrast. Images were reviewed in the axial, sagittal, and coronal planes. IV contrast was not administered for this examination. A dose lowering technique was utilized adhering to the principles of ALARA. FINDINGS: A prominent right paratracheal lymph node measures 8 mm in short axis diameter. This is unchanged since prior PET/CT. This was not FDG avid. The patient is status post right upper lobectomy. There is no pneumothorax. A trace right pleural effusion is noted. Severe emphysema is present. 1.5 cm speculated right lower lobe nodule shown image 29 of 60 has slightly increased in size since CT of September 07, 2017. This was FDG avid on recent PET. This is similar to previous PET. A 1.2 cm left lower lobe nodule is obscured on this exam but shown on image [id number]. Adjacent irregular opacity is unchanged since prior chest CT. This remains indeterminate but was not FDG avid. A 9 mm subpleural ground glass opacity with the left lower lobe shown on image 35 is unchanged since exam of September 07, 2017. No suspicious osseous lesions are present. Upper abdomen is unremarkable. Gastrostomy tube is noted. IMPRESSION: 1. 1.5 cm spiculated right lower lobe nodule which has slightly increased in size since chest CT of September 07, 2017 and was FDG avid on PET/CT. This is consistent with a neoplasm and may reflect metastatic disease or primary malignancy. 2. No change in an indeterminate 1.2 cm left lower lobe pulmonary nodule. 3. No change in an indeterminate 9 mm subpleural groundglass within the left lower lobe left lower lobe opacity. 3. Stable prominent right paratracheal lymph node which is not FDG avid. This should be assessed on subsequent exams. Electronically signed by: Anthony Scales M.D. 10/21/2017 9:40 AM Dictated Date/Time: 10/21/2017 8:41 AM
== END | disposition home or self-care (01) ==
LOC: C.CTS 08:21
PROVIDERS: ATTEND Internal Medicine Critical Care Medicine
DX: C34.10 Malignant neoplasm of upper lobe, unspecified bronchus or lung (principal); R91.1 Solitary pulmonary nodule

== ENCOUNTER 2017-10-28 09:31 | Day surgery (SDC) | payer OTHER ==
[2017-10-21 09:30] VITALS: BMI 25.0
--- NOTE | 2017-10-21 10:18 | PAT Medication Instructions ---
Service Date Oct 21, 2017. Current Home Medication List Budesonide/Formoterol Fumarate (Symbicort 80/4.5 Inhaler), 2 PUFFS INH BID Buspirone Hcl (Buspirone Hcl), 1.5 TAB PEG BID Fentanyl (Fentanyl), 25 MCG TOP Q3D Gabapentin (Neurontin), 300 MG PEG HS Ipratropium Persia (Ipratropium Persia), 1 VIAL NEB TID Lansoprazole (Prevacid Solutab), 300 MG PEG QAM Levothyroxine Sodium (Levothyroxine Sodium), 1 TAB PEG QAM Magnesium Oxide (Mag-Ox), 400 MG PEG QAM Mirtazapine (Mirtazapine), 7.5 MG PEG HS Nutritional Supplements (Nutren 2.0), 250 ML PEG QID Oxycodone Oral Soln (Roxicodone Oral Soln), 10 ML PEG Q6 Potassium Chloride (Potassium Chloride), 15 ML PEG QAM Sertraline Hcl (Zoloft), 20 MG PEG QAM [docusate liquid], 50 MG PEG BID Medication Instructions For Your Scheduled Surgery -Contact your surgeon for instructions for: Fentanyl (Fentanyl), 25 MCG TOP Q3D - Hold the following medications the morning of surgery: Magnesium Oxide (Mag-Ox), 400 MG PEG QAM Potassium Chloride (Potassium Chloride), 15 ML PEG QAM [docusate liquid], 50 MG PEG BID - Take the following medications as directed: Budesonide/Formoterol Fumarate (Symbicort 80/4.5 Inhaler), 2 PUFFS INH BID Ipratropium Pers[place] (Ipratropium Persia), 1 VIAL NEB TID - Take the following medications via PEG tube up to 2 hours prior to arrival; Nothing to eat/drink/via PEG tube 2 hours prior to surgery arrival) Buspirone Hcl (Buspirone Hcl), 1.5 TAB PEG BID Lansoprazole (Prevacid Solutab), 300 MG PEG QAM Levothyroxine Sodium (Levothyroxine Sodium), 1 TAB PEG QAM Nutritional Supplements (Nutren 2.0), 250 ML PEG QID Sertraline Hcl (Zoloft), 20 MG PEG QAM - Take the following medications via PEG tube up to 4 hours prior to arrival if needed: Oxycodone Oral Soln (Roxicodone Oral Soln), 10 ML PEG Q6 - Take the following medications as scheduled the night before surgery: Budesonide/Formoterol Fumarate (Symbicort 80/4.5 Inhaler), 2 PUFFS INH BID Buspirone Hcl (Buspirone Hcl), 1.5 TAB PEG BID Gabapentin (Neurontin), 300 MG PEG HS Ipratropium [place] (Ipratropium [place]), 1 VIAL NEB TID Mirtazapine (Mirtazapine), 7.5 MG PEG HS Nutritional Supplements (Nutren 2.0), 250 ML PEG QID Oxycodone Oral Soln (Roxicodone Oral Soln), 10 ML PEG Q6 If you have any questions please call us at [phone] or [phone] or [phone]
[2017-10-21 11:29] LABS: BASO % 0.4 %; BASO ABS # 0.02 K/uL (0-0.2); EOS % 5.3 %; EOS ABS # 0.24 K/uL (0-0.5); HEMOGLOBIN 12.5 g/dL (14.0-18.0); IG# 0.01 K/uL (0.00-0.02); LYMPH ABS # 1.28 K/uL (1.2-3.4); MEAN CELL VOLUME 82.5 fL (80-100); MEAN CORPUSCULAR HEMOGLOBIN 26.4 pg (25-34); MEAN CORPUSCULAR HGB CONC 32.1 g/dl (32-36); MEAN PLATELET VOLUME 10.2 fL (7.4-10.4); MONO % 5.5 %; MONO ABS # 0.25 K/uL (0.11-0.59); NEUT % 60.6 %; NEUT ABS # 2.77 K/uL (1.4-6.5); PLATELET COUNT 319 K/uL (130-400); RED CELL DISTRIBUTION WIDTH CV 16.3 % (11.5-14.5); RED CELL DISTRIBUTION WIDTH SD 49.6 fL (36.4-46.3); WHITE BLOOD COUNT 4.57 K/uL (4.8-10.8)
[2017-10-21 11:37] LABS: ALBUMIN 3.7 gm/dl (3.4-5.0); CALCIUM 9.3 mg/dl (8.5-10.1); CREATININE 0.7 mg/dl (0.60-1.40); POTASSIUM 4.3 mmol/L (3.5-5.1); PTT PATIENT 27.9 SECONDS (21.0-31.0)
[2017-10-21 11:40] LABS: TOTAL PROTEIN 7.7 gm/dl (6.4-8.2)
--- NOTE | 2017-10-27 13:00 | History and Physical ---
History & Physical Date of Service Oct 27, 2017. History & Physical 67-year-old gentleman with severe COPD and possibly recurrent lung cancer: Here for bronchoscopic, ENB, EBUS evaluation of PET avid nodule and mediastinum. Patient has a complex medical history I was initially seen by Dr. Michael Whitmore and transfer to my service on 08/11/2016. Patient has a known history of COPD with his last pulmonary function studies performed 06/15/2017 having an FEV1 of 40% predicted and a DLCO of 38% predicted. Prior to these pulmonary function tests the patient did undergo right upper lobe lobectomy on 06/25/2016 for his lung carcinoma followed by SBRT for left lower lobe pulmonary nodule which was completed on 02/05/2017 with a total of 5000 cGY. The patient has been monitored radiographically since that time. He also has a history of right supraglottic laryngeal cancer stage III which was treated with radio chemotherapy completed on 02/28/2010 and received a total of 7200 cGy. Over 2017 the patient did have a follow-up PET scan which noted avidity in the right supraglottic laryngeal region and underwent evaluation by Dr. Obed Sequeira from the ENT department with microlaryngoscopy and biopsies. Notable cancer was detected at that time. He has had episodes of recurrent hemoptysis which appear to of greatly subsided recently and has had multiple pneumonias. A video swallow performed 07/21/2017 demonstrated chronic aspiration of all materials which is most likely the etiology is recurrent aspirations. Since then the patient had a PEG tube placed for proper nutrition. I should also mention that the patient has right vocal cord paralysis. Patient presents with his today any notes overall he is doing well and continues to have his baseline dyspnea. He currently denies: Productive cough, fever, change in his pleurisy or active cardiac chest pain. I did review the patient's most recent CT imaging performed 09/07/2017. CT of the chest performed 09/07/2017 was compared to 05/10/2017--performed to monitor patient status post lung resection and SBRT 1. Interval development of a spiculated partially solid nodule in the right lower lobe approximately 1.6 cm with solid portion of 4 mm. 2. Stable appearance of left lower lobe spiculated nodule 3. Stable nodular opacity in the lingula and left lower lobe 4. Postsurgical changes right upper lobe 5. Mediastinal hilar nodes within normal limits 6. Increased size of spiculated right lower lobe now 1.2 cm nodule PET-CT imaging 10/04/2017 1. PET avid right lower lobe nodule 2. Possible PET avid 7 are left-sided lymph node Active Problems 1. Sever COPD (FEV1: 40%, DLCO: 38%) 2. Back pain (M54.9) 3. Candidiasis (B37.9) 4. Coughing up blood (R04.2) 5. Disorder of vocal cord (J38.3) 6. Dysphagia, pharyngoesophageal phase (R13.14) 7. Dyspnea on exertion (R06.09) 8. Encounter for other preprocedural examination (Z01.818) 9. Hoarseness 10. Laryngopharyngeal reflux (K21.9) 11. Malignant neoplasm of supraglottis (C32.1) 12. Malignant neoplasm of upper lobe, unspecified bronchus or lung 13. Malignant Pharyngeal Neoplasm 14. Pulmonary nodule, right (R91.1) 15. Throat pain (R07.0) 16. Urinary frequency (R35.0) 17. Urinary urgency (R39.15) Past Medical History 1. History of Arthritis 2. History of chemotherapy (Z92.21) 3. History of malignant neoplasm (Z85.9) 4. History of Squamous Cell Carcinoma Of The Larynx Surgical History 1. History of Computer-Assisted Image-Guided Navigation During Flexible Bronchoscopy 2. History of Neck Surgery 3. History of Throat Surgery Family History 1. Family history of Cancer 2. Family history of Diabetes Mellitus Social History Alcohol Use (History) Current every day smoker (F17.200) History of cigarette smoking (Z87.891) Marital History - Once Current Meds 1. Ipratropium-Albuterol 0.5-2.5 (3) MG/3ML Inhalation Solution; 1 time in office; 2. Symbicort 160-4.5 MCG/ACT Inhalation Aerosol; INHALE 2 PUFFS TWICE DAILY. RINSE 3. Gabapentin 100 MG Oral Capsule; TAKE 1 CAPSULE 3 TIMES DAILY; 4. OxyCODONE HCl - 5 MG Oral Tablet; TAKE 1 TABLET EVERY 4 TO 6 HOURS 5. Magic Mix(benadry/maalox/xylocaine 1:1:1 compounded at pharmacy); 1-2 TEASPOONS 6. Ambien 5 MG Oral Tablet; TAKE 1 TABLET AT BEDTIME NEEDED; 7. Levothyroxine Sodium 100 MCG Oral Tablet; TAKE 1 TABLET DAILY DIRECTED; 8. Multi Complete Oral Capsule; TAKE DIRECTED; 9. OxyCONTIN 40 MG Oral Tablet ER 12 Hour Abuse-Deterrent; 10. Zoloft 100 MG Oral Tablet; Vital Signs Blood Pressure: 124 / 78, RUE, Sitting Height: 5 ft 9 in Weight: 173 lb 6 oz BMI Calculated: 25.6 BSA Calculated: 1.94 FiO2: 2L/min, Nasal Cannula Respiration: 22 Heart Rate: 111 Temperature: 98.6 F Constitutional General appearance: Abnormal. Thin male but no apparent distress. Eyes Conjunctiva and lids: No swelling, erythema, or discharge. Pupils and irises: Equal, round and reactive to light. Ears, Nose, Mouth, and Throat External inspection of ears and nose: Normal. Otoscopic examination: Tympanic membrance translucent with normal light reflex. Canals patent without erythema. Oropharynx: Normal with no erythema, edema, exudate or lesions. Pulmonary Respiratory effort: No increased work of breathing or signs of respiratory distress. Auscultation of lungs: Abnormal. Bilateral rhonchi appreciated. Cardiovascular Palpation of heart: Normal PMI, no thrills. Auscultation of heart: Normal rate and rhythm, normal S1 and S2, without murmurs. Examination of extremities for edema and/or varicosities: Normal. Abdomen Abdomen: Abnormal. PEG tube clean no signs of dehiscence or breakdown. Liver and spleen: No hepatomegaly or splenomegaly. Lymphatic Palpation of lymph nodes in neck: No lymphadenopathy. Musculoskeletal Gait and station: Normal. Digits and nails: Normal without clubbing or cyanosis. Inspection/palpation of joints, bones, and muscles: Normal. Skin Skin and subcutaneous tissue: Normal without rashes or lesions. Neurologic Cranial nerves: Cranial nerves 2-12 intact. Reflexes: 2+ and symmetric. Sensation: No sensory loss. Psychiatric Orientation to person, place and time: Normal. Mood and affect: Normal.
[~2017-10-28] VITALS: Ht 175.3 cm; Wt 78.7 kg
[~2017-10-28 09:31] MED LIST changes: +ATROPINE SULFATE 0.1 MG/ML 5ML SYR IV PRN; -BUSP15TA70 PEG; +EpHEDrine SULFATE INJ 50 MG/ML AMP IV PRN; +FENTANYL CITRATE INJ 50 MCG/1 ML 2 ML VIAL IV PRN; +HYDROmorphone INJ 1 MG/ML SYR IV PRN; +LABETALOL HCL IV 5 MG/ML 20ML IV PRN; +LACTATED RINGER'S 1000ML 1,000 ML IV SCH; -LEVA1.258 INH; +MEPERIDINE HCL 25 MG/ML CARP IV PRN; -MGNO400 PEG; -NEBMAC; -NRN300 PEG; +ONDANSETRON INJ 2 MG/ML 2 ML VIAL IV PRN; -POTA10LI12 PEG; -SENN8.6T36; -SERT-234 PEG; -ZOLP10TA PEG
[2017-10-28 10:20] VITALS: BP 165/89; PULSE 85; TEMP 36.8; O2SAT 96; Ht 175.3 cm; Wt 78.7 kg
--- NOTE | 2017-10-28 10:47 | History & Physical Bridge Note ---
H&P Re-Evaluation Bridge Note: I have examined the patient, reviewed the History & Physical and in the interval since the performance of the History & Physical I have noted the following changes of clinical significance: No changes noted
[2017-10-28] MEDS ORDERED: NEOSTIGMINE METHYLSULFATE 5 MG/5 ML SYR ONE (11:45)
[2017-10-28] MEDS ORDERED: ROCURONIUM BROMIDE 10 MG/ML 5 ML VIAL IV ONE (11:45)
[2017-10-28] MEDS ORDERED: ONDANSETRON INJ 2 MG/ML 2 ML VIAL ONE (11:45)
[2017-10-28] MEDS ORDERED: EpHEDrine SULFATE 50MG/5ML SYR ONE (11:45)
[2017-10-28] MEDS ORDERED: FENTANYL CITRATE INJ 50 MCG/1 ML 2 ML VIAL ONE (11:45)
[2017-10-28] MEDS ORDERED: DEXAMETHASONE SOD INJ 4 MG/ML VIAL ONE (11:45)
[2017-10-28] MEDS ORDERED: PROPOFOL IV EMULSION 10 MG/ML 20 ML VIAL IV ONE (11:45)
[2017-10-28] MEDS ORDERED: GLYCOPYRROLATE INJ 0.2 MG/ML VIAL ONE (11:45)
[2017-10-28] MEDS ORDERED: LIDOCAINE HCL 2% 2 ML VIAL (20MG/ML) ONE (11:45)
[2017-10-28] MEDS ORDERED: LARYING-O-JET KIT (LTA) ONE (11:45)
[2017-10-28] MEDS ORDERED: MIDAZOLAM HCL 1 MG/ML 2ML VIAL ONE (11:46)
--- NOTE | 2017-10-28 13:27 | Bronchoscopy Procedure Note ---
Bronchoscopy Procedure Note Procedure: Flexible-Bronchoscopy, EBUS, ENB, FNA, Cytology Brushing, BAL Consent: Obtained through the patient placed into the chart Pre-Procedural Dx: Lung nodule with mediastinal adenopathy Post-Procedural Dx: Lung nodule with mediastinal adenopathy Analgesia: GETA Sedation: GETA Procedure: The Olympus video bronchoscope and EBUS scope were used for this procedure Initially the flexible bronchoscope was used for evaluation of the airways. The ET tube was notably 4cm above the level of the dima. Trachea: Visualized portion of the trachea was anatomically within normal limits Dima: Anatomically within normal limits Right bronchial tree: Right mainstem bronchus: Anatomically within normal limits Right upper lobe: Status post surgical resection with no signs of breakdown or infection Bronchus intermedius: Anatomically within normal limits Right middle lobe: Anatomically within normal limits Right lower lobe: Anatomically within normal limits Findings: No significant findings noted Left bronchial tree: Left mainstem bronchus: Anatomically within normal limits Left upper lobe: Anatomically within normal limits Lingula: Anatomically within normal limits Left lower lobe: Anatomically within normal limits Findings: No significant findings noted EBUS/CELESTE: FNA Yuli Stations: 7: # of passes 6 4R: # of passes 3 10L: # of passes 3 ENB: Cytology brushing, BAL: Right lower lobe BAL: Right lower lobe EBL: None Complications: None Follow-up: PACU
--- NOTE | 2017-10-28 13:32 | Discharge Instructions ---
Discharge Instructions Date of Service Oct 28, 2017. Admission Reason for Admission: Malgnant Neoplasm Of Upper Lobe & Pulmonady Nodule Discharge Discharge Diagnosis / Problem: Right lower lobe nodule with history of small cell lung cancer Discharge Goals Goal(s): Diagnostic testing Activity Recommendations Activity Limitations: resume your previous activity Driving or Machine Use: resume 1 day after discharge . Instructions / Follow-Up Instructions / Follow-Up Dr. [facility] Current Hospital Diet Patient's current hospital diet: Discharge Diet Recommended Diet: Regular Diet Procedures Procedures Performed: Electromagnetic Navigational Bronchoscopy; Endobronchial Ultrasound Guided Biopsy, Fine Needle Aspiration, Cytology Brushing, Bronchial Lavage Pending Studies Studies pending at discharge: no Medical Emergencies . Who to Call and When: Medical Emergencies: If at any time you feel your situation is an emergency, please call 911 immediately. . Non-Emergent Contact Non-Emergency issues call your: Wrapper Opener Call Non-Emergent contact if: you have a fever, temperature is above 101 . . "Provider Documentation" section prepared by Sterling Winter. .
--- NOTE | 2017-10-28 13:57 | DIAGNOSTIC IMAGING REPORT ---
CHEST 1 VIEW FRONTAL HISTORY: 67 years-old Male NAVIGATIONAL BRONCHOSCOPY status post navigational bronchoscopy on the right. Right hilar nodule COMPARISON: Chest CT 10/21/2017 TECHNIQUE: Single spot fluoroscopic image of the chest was obtained utilizing 42.3 seconds fluoroscopy time FINDINGS: Single image demonstrates a bronchoscope and guidewire within the region of the right hilum projecting towards the right upper lobe bronchus. IMPRESSION: Fluoroscopic assistance as above. Please see procedural report for further details. The above report was generated using voice recognition software. It may contain grammatical, syntax or spelling errors. Electronically signed by: Jonathan Snyder M.D. 10/28/2017 1:56 PM Dictated Date/Time: 10/28/2017 1:55 PM
--- NOTE | 2017-10-28 13:59 | DIAGNOSTIC IMAGING REPORT ---
CHEST 1 VW FRONT-NOT PORTABLE CLINICAL HISTORY: 67 years-old Male presenting with Rule out pneumonia. TECHNIQUE: Portable upright AP view of the chest was obtained. COMPARISON: 07/21/[address] from 10/21/2017. FINDINGS: Atherosclerosis of the aortic arch. Cardiac silhouette normal in size. Heterogeneity of lung parenchyma with relative radiolucency of the upper lobes. Bandlike opacity at the left lung base, increased in prominence since July but present on the most recent CT. Patchy opacities in the right mid lung similar to prior radiograph. Prominence of the right hilum may relate to the presence of the known underlying right perihilar mass. Small right pleural effusion suspected. No large pneumothorax. A suture margin is noted along the right paratracheal region. Partially visualized anterior cervical fusion hardware. IMPRESSION: 1. Patchy opacities in the right midlung similar to prior radiograph in July though no consolidation was evident in this region on most recent chest CT. This could raise concern for focal consolidation/pneumonia. Alternatively, this could relate to heterogeneity of lung parenchyma on the setting of emphysema. 2. No new right perihilar mass better seen on most recent CT. 3. Bandlike left basilar opacity, possibly atelectasis or scarring. Electronically signed by: Francois Marin M.D. 10/28/2017 1:58 PM Dictated Date/Time: 10/28/2017 1:54 PM
--- NOTE | 2017-10-28 14:12 | Anesthesiology Progress Note ---
Anesthesia Post Op Note Date & Time Oct 28, 2017 at 14:12 Vital Signs Pain Intensity: 0 Vital Signs Past 12 Hours Date Time Temp Pulse Resp B/P (MAP) Pulse Ox O2 Delivery O2 Flow Rate FiO2 10/28/17 14:00 90 18 169/97 95 Nasal Cannula 2 10/28/17 13:50 90 18 172/109 100 Oxymask 10 10/28/17 13:40 92 16 164/89 100 Oxymask 10 10/28/17 13:34 36.2 93 16 166/99 99 Oxymask 10 10/28/17 10:20 36.8 85 20 165/89 (114) 96 Nasal Cannula 2 Notes Mental Status: alert / awake / arousable, participated in evaluation Pt Amnestic to Procedure: Yes Nausea / Vomiting: adequately controlled Pain: adequately controlled Airway Patency, RR, SpO2: stable & adequate BP & HR: stable & adequate Hydration State: stable & adequate Anesthetic Complications: no major complications apparent
[2017-10-28 14:30] VITALS: BP 142/76; PULSE 80; TEMP 36.6; O2SAT 94
[2017-10-28 15:00] VITALS: BP 165/80; PULSE 78; O2SAT 95
[2017-10-28 15:20] VITALS: BP 167/78; PULSE 84; TEMP 36.5; O2SAT 93
== END 2017-10-28 15:30 | disposition home or self-care (01) ==
LOC: C.ACU 09:31
PROVIDERS: ATTEND Internal Medicine Critical Care Medicine
DX: J44.9 Chronic obstructive pulmonary disease, unspecified (principal); M19.90 Unspecified osteoarthritis, unspecified site; Z87.891 Personal history of nicotine dependence; Z99.81 Dependence on supplemental oxygen; Z85.118 Personal history of other malignant neoplasm of bronchus and lung; Z83.3 Family history of diabetes mellitus

== ENCOUNTER → 2018-03-28 | Outpatient (CLI) | payer OTHER ==
[~2018-03-28] MED LIST changes: -ATROPINE SULFATE 0.1 MG/ML 5ML SYR IV PRN; +DOCU100C31 PEG; -DOCUSATE PEG; -EpHEDrine SULFATE INJ 50 MG/ML AMP IV PRN; -FENTANYL CITRATE INJ 50 MCG/1 ML 2 ML VIAL IV PRN; -HYDROmorphone INJ 1 MG/ML SYR IV PRN; -LABETALOL HCL IV 5 MG/ML 20ML IV PRN; -LACTATED RINGER'S 1000ML 1,000 ML IV SCH; -MEPERIDINE HCL 25 MG/ML CARP IV PRN; -ONDANSETRON INJ 2 MG/ML 2 ML VIAL IV PRN
--- NOTE | 2018-03-28 09:00 | DIAGNOSTIC IMAGING REPORT ---
CT OF THE CHEST WITH IV CONTRAST CLINICAL HISTORY: LUNG CA COMPARISON STUDY: 10/21/2017 TECHNIQUE: Following the IV administration of 92 mL of Optiray-320, CT of the thorax was performed from the thoracic inlet to the lung bases. Images are reviewed in the axial, sagittal, and coronal planes. IV contrast was administered without complication. A dose lowering technique was utilized adhering to the principles of ALARA. CT DOSE: 231.04 mGy.cm FINDINGS: Thyroid: Imaged portions of the thyroid gland are normal in appearance. Thoracic aorta: The thoracic aorta is normal in course and caliber, noting standard 3-vessel arch anatomy. No aneurysm or dissection is seen. Pulmonary vasculature: The pulmonary trunk is normal in caliber. There are no central filling defects identified to suggest pulmonary embolus. Note that this examination was not protocoled for the evaluation of pulmonary emboli. HEART: There are coronary artery calcifications. The heart is normal in size. Lungs and pleural spaces: There is pulmonary emphysema. There is stable right-sided pleural thickening/fluid. There are postsurgical changes of a right upper lobectomy. There is no focal pulmonary consolidation. There is a stable 9 mm pleural-based left lower lobe pulmonary opacity. There is interval decrease in the size of the irregular marginated right lower lobe pulmonary nodule which currently measures 7 mm. Mediastinum: Mediastinal lymph nodes are the upper limits of normal in size. Carolynn: There is stable mildly enlarged 15 mm right hilar lymph node. There is a stable mildly enlarged 14 mm left infrahilar lymph node. Axilla: There is no evidence of pathologic axillary lymphadenopathy Upper abdomen: There is indwelling PEG tube. Skeletal structures: There is an old sternal fracture. No destructive lesions are visualized. Postsurgical changes are present within the cervical spine. IMPRESSION: 1. Postsurgical changes of a right upper lobectomy 2. Interval decrease in the size of the irregularly marginated right lower lobe pulmonary nodule which currently measures 7 mm 3. Stable 9 mm left lower lobe subpleural nodule 4. Stable mildly enlarged bilateral hilar lymph nodes 5. Emphysema Electronically signed by: Gentry Tsang M.D. 03/28/2018 8:58 AM Dictated Date/Time: 03/28/2018 8:45 AM
== END | disposition home or self-care (01) ==
LOC: C.CTS 08:15
PROVIDERS: ATTEND Physician Assistant Medical
DX: C34.31 Malignant neoplasm of lower lobe, right bronchus or lung (principal); R91.1 Solitary pulmonary nodule; J43.9 Emphysema, unspecified

== ENCOUNTER → 2018-04-01 | Outpatient (CLI) | payer OTHER ==
[2018-04-01 08:38] VITALS: BP 131/74; PULSE 84; TEMP 36.8; O2SAT 92
--- NOTE | 2018-04-01 10:14 | Radiation Oncology Follow-Up ---
Radiation Oncology Follow-Up Date of Visit Apr 01, 2018. Radiation Completion Date 02-05-2017 and 11-26-2017 to lung ,esophagus 02-28-2010 Diagnosis (1) Lung cancer Status: Resolved Onset Date: 10/04/2017 Permanent Comment: Status post bronchoscopy and biopsy 06/03/2016 right upper lobectomy and lymph node dissection 06/25/2016 Squamous cell carcinoma Stage pT1b [id number] Development of a left lower lobe pulmonary nodule Status post bronchoscopy and biopsy pathology nondiagnostic 06/25/2016 Status post SBRT completed 02/05/2017. 5 fractions were given for a total of 5000 cGy. Recheck PET/CT October 04, 2017 revealing right lower lobe nodule with FDG avidity Status post bronchoscopy and biopsies October 28, 2017 Node biopsies negative, bronchial washings negative Status post lung nodule clinic discussion and consensus for stereotactic radiation therapy Status post completion of stereotactic body radiation therapy November 26, 2017. He received 5000 cGy Last Edited By: Sirisha You on December 13, 2017 16:00 History of Present Illness Mr. Castro is a 68-year-old gentleman with a previous history of head and neck cancer treated with chemotherapy and radiation therapy who more recently was diagnosed with lung cancer treated with SBRT. The patient was previously treated with SBRT in January 2017 and received 5000 cGy in 5 fractions. More recently, the patient was found to have a second mass in the lung, radiographically consistent with lung cancer, that was treated with stereotactic radiation therapy which completed on 11/26/2017. We are now seeing the patient back in follow-up evaluation. The patient is also scheduled to see Dr. Saldana today as well. The patient also continues to follow with pulmonary medicine. Interim History In the interim, the patient has been doing relatively well. He states his breathing has been stable overall. He continues to have a dry cough. He has no other significant complaints or concerns. He states his energy, appetite and weight are stable. He denies any fevers, chills or night sweats. Allergies Coded Allergies: NSAIDs (Verified Adverse Reaction, Mild, upset stomach, 10/21/17) Home Medications Scheduled Budesonide/Formoterol Fumarate (Symbicort 80/4.5 Inhaler), 2 PUFFS INH BID Buspirone Hcl (Buspirone Hcl), 1.5 TAB PEG BID Docusate Sodium (Docusate Sodium), 50 MG PEG BID Fentanyl (Fentanyl), 25 MCG TOP Q3D Gabapentin (Neurontin), 300 MG PEG HS Ipratropium [place] (Ipratropium [place]), 1 VIAL NEB TID Lansoprazole (Prevacid Solutab), 300 MG PEG QAM Levothyroxine Sodium (Levothyroxine Sodium), 1 TAB PEG QAM Magnesium Oxide (Mag-Ox), 400 MG PEG QAM Mirtazapine (Mirtazapine), 7.5 MG PEG HS Nutritional Supplements (Nutren 2.0), 250 ML PEG QID Oxycodone Oral Soln (Roxicodone Oral Soln), 10 ML PEG Q6 Potassium Chloride (Potassium Chloride), 15 ML PEG QAM Sertraline Hcl (Zoloft), 20 MG PEG QAM Review of Systems Gastrointestinal: Symptoms: Nausea GI Comments: occ nausea , no vomiting Oral: Other Oral Symptoms: " voice is hoarse , not able to swallow , except water " Respiratory: Symptoms: Dry Cough, SOB With Exertion, Productive Cough Sputum Character: slight bloody , with old blood, light green Other Respiratory: wears o2 at 2.0 liters NC Urinary: Symptoms: Nocturia Comments: nocturia times 2-3 Skin: Other Skin Symptoms: " rash on arms " using a topical ointment twice a day " Physical Exam Vital Signs Date Time Temp Pulse Resp B/P (MAP) Pulse Ox O2 Delivery O2 Flow Rate FiO2 04/01/18 08:38 36.8 84 20 131/74 92 General Appearance: WD/WN, no apparent distress Eyes: normal inspection ENT: normal ENT inspection Neck: supple, no adenopathy Respiratory/Chest: + decreased breath sounds, + crackles, + rales Cardiovascular: regular rate, rhythm, no edema, no gallop, no JVD, no murmur Abdomen: normal bowel sounds, non tender, soft, no organomegaly 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 Imaging Imaging Studies: were reviewed, and pertinent findings noted below Imaging Comments Patient: BARBARA CASTRO Address[address]: [address] [facility] Rec: [id number] Address2: Acct ID: [id number] [facility] Zip: [place] [id number] Date: 1950 Sex: M Room/Bed: Ref Phy: Chapito Milner D.O. SC: C.CTS Att Phy: Sirisha You PA-C Report #: [id number] Rhoda Phy: Chapito Milner D.O. Test: CX Admit Phy: [employer] Supervisor: DONOVAN Interpreting Phy: Gentry Tsang M.D. Diagnosis: LUNG CA Ordering Phy: Sirisha You PA-C Service Date: 03/28/18 Admit Date: 03/28/18 MNE: [id number] CONF: DICTATED BY: Gentry Tsang M.D.]] CC: Sirisha You PA-C Shunk, Brian R., D.O. Endcc: [~ rep ct add3]] CT OF THE CHEST WITH IV CONTRAST CLINICAL HISTORY: LUNG CA COMPARISON STUDY: 10/21/2017 TECHNIQUE: Following the IV administration of 92 mL of Optiray-320, CT of the thorax was performed from the thoracic inlet to the lung bases. Images are reviewed in the axial, sagittal, and coronal planes. IV contrast was administered without complication. A dose lowering technique was utilized adhering to the principles of ALARA. CT DOSE: 231.04 mGy.cm FINDINGS: Thyroid: Imaged portions of the thyroid gland are normal in appearance. Thoracic aorta: The thoracic aorta is normal in course and caliber, noting standard 3-vessel arch anatomy. No aneurysm or dissection is seen. Pulmonary vasculature: The pulmonary trunk is normal in caliber. There are no central filling defects identified to suggest pulmonary embolus. Note that this examination was not protocoled for the evaluation of pulmonary emboli. HEART: There are coronary artery calcifications. The heart is normal in size. Lungs and pleural spaces: There is pulmonary emphysema. There is stable right-sided pleural thickening/fluid. There are postsurgical changes of a right upper lobectomy. There is no focal pulmonary consolidation. There is a stable 9 mm pleural-based left lower lobe pulmonary opacity. There is interval decrease in the size of the irregular marginated right lower lobe pulmonary nodule which currently measures 7 mm. Mediastinum: Mediastinal lymph nodes are the upper limits of normal in size. Carolynn: There is stable mildly enlarged 15 mm right hilar lymph node. There is a stable mildly enlarged 14 mm left infrahilar lymph node. Axilla: There is no evidence of pathologic axillary lymphadenopathy Upper abdomen: There is indwelling PEG tube. Skeletal structures: There is an old sternal fracture. No destructive lesions are visualized. Postsurgical changes are present within the cervical spine. IMPRESSION: 1. Postsurgical changes of a right upper lobectomy 2. Interval decrease in the size of the irregularly marginated right lower lobe pulmonary nodule which currently measures 7 mm 3. Stable 9 mm left lower lobe subpleural nodule 4. Stable mildly enlarged bilateral hilar lymph nodes 5. Emphysema Assessment & Plan Assessment: Mr. Castro is a 68-year-old gentleman with a previous history of head and neck cancer treated with chemotherapy and radiation therapy as well as lung cancer treated with multiple courses of SBRT, his most recent course completed in November 2017. We are now seeing him back in follow-up evaluation. Based on his most recent imaging studies, he is doing well with no evidence of clinical recurrence. Recommendation/Plan: Return to clinic in [address] of chest prior to follow-up. Continue follow-up with all the providers including medical oncology and pulmonary medicine. Patient was encouraged to call us with any further questions or concerns. Total Time In Follow-Up I spent 20 minutes examining and counseling the patient. I spent 15 minutes completing this note. [employer] Copy To Chano Saldana MD; Chapito Milner,D.O.; Sterling Winter MD
== END ==
LOC: C.ONC 08:30
PROVIDERS: ATTEND Physician Assistant Medical
DX: Z08 Encounter for follow-up examination after completed treatment for malignant neoplasm (principal); Z92.3 Personal history of irradiation; Z85.118 Personal history of other malignant neoplasm of bronchus and lung

== ENCOUNTER 2019-12-17 23:16 | Inpatient (IN) ==
[2019-12-17] MEDS ORDERED: SODIUM CHLORIDE 0.9% 1000ML 1,000 ML IV ONE (23:45)
[2019-12-17] MEDS ORDERED: ALBUT/IPRATROP 3MG/0.5MG NEB 3 ML VIAL NEB ONE (23:45)
[2019-12-17] MEDS ORDERED: methylPREDNISolone 125 MG/2 ML VIAL IV STA (23:45)
--- NOTE | 2019-12-17 23:48 | Emergency Department Note ---
Impression & Plan LLL pneumonia, Lung cancer, Acute dehydration ED Provider Note Name: BARBARA CASTRO Age: 69 Sex: M Arrives Via: Walk-In Informant: Patient ED Provider: Vahe Orellana MD Chief Complaint: shortness of breath Impression: Left lower Lobe pneumonia Lung Cancer Acute Dehydration Hemoptysis Medical Decision Makin yr old male with history lung Cancer, COPD, Supraglottis cancer, depression, hypothyroid, CAD, Anxiety, HTN arrives due to worsening cough and weakness. Ill appearing on arrival with poor lung sounds diffuse wheezing. He reported persistent fevers over the previous week. With both him and his being in and out of hospital he was placed in isolation and covid testing obtained. Fortunately negative. Labs unremarkable though CXR with LLL infiltrate. Given he can not care for self at home, has already failed multiple po abx and is having increased hemoptysis felt hospitalization necessary. Suspect this is post obstructive infiltrate. Reviewed with hospitalist who will get further imaging. Given Zosyn/Vanco IV. Doing well with duoneb and steroids. Hospitalist in to evaluate further. Prior Medical Record and Triage/Nursing Notes reviewed by Me Differentials:COVID, Reactive airway disease, pneumonia, pneumothorax, COPD, CHF, infections, cardiac ischemia, pulmonary embolism, musculoskeletal, gastrointestinal, as well as other pathologies. amongst other pathologies. Vital Signs: reviewed and remarkable for tachycardia Interventions: Saline lock, nss bolus IV, zosyn 4.5gm iv, vanco 1.5gm IV, duoneb Labs:Reviewed and remarkable for no significant abnormalities Imaging:X ray results are stated below per my interpretation: Chest: 1 view: Increased LLL infiltrate compared to previous. EKG:Per My Interpretation: Indication Shortness of breath: Sinus Tach bpm, qtc 466. No Ectopy. No Ischemia. Compared to EKG 05/11/18, no significant changes. Cardiac/Tele Monitoring: Cardiac Monitoring: An Order was placed for continuous cardiac monitoring. The monitor shows a rate of 110 with a sinus tach rhythm. Consults:Dr Guerrero Hernandez hospitalist Plan: Disposition:Hospitalization. Condition: Fair Blood pressure:Normal.No Referral necessary History of Present Illness:69 / M arrives for evaluation of shortness of breath. Patient with history of lung cancer who has been on multiple rounds of abx over the last few months due to worsening shortness of breath and hemo ptysis. Notes he was initially feeling better. The last few days he has been rapidly worsening. Associated fevers of 101, hypoxia on his normal [place] O2, weakness. Admits he has been coughing much worse the last few days. Hemoptysis ongoing for several months and mildly worse the last few days. States he uses peg tub for food and meds but is unable to give himself these. His usually cares for him but unfortunately she was just admitted to the hospital (he believes she was admitted for UTI with kidney stone). ROS: See above HPI for pertinent positives & negatives. A total of 10 systems reviewed and were otherwise negative. Past Medical History:Lung Cancer, COPD, Supraglottis cancer, depression, hypothyroid, CAD, Anxiety, HTN Past Surgical History:See Below Family History:See Below Social History:See Below Home Medications:See Below Allergies:See Below Vitals:Blood Pressure: 126/80, [id number], RR 20, T 37.0C, O2 96% on NC 4L Physical Exam: GENERAL: Patient is unwell appearing and in moderate distress. EYES: No scleral icterus, unremarkable pupils. ENT: Mucous membranes dry, no nasal congestion. NECK: No masses appreciated, nomeningismus, trachea is midline. RESPIRATORY: Dyspnea, Tachypnea, coughing constantly CARDIOVASCULAR: Tachycardia.No murmurs, rubs, gallops appreciated. GASTROINTESTINAL: Peg tub, Abdomen soft, non-tender, no peritonitis.Bowel sounds positive.No masses appreciated. BACK: No midline tenderness, no CVA tenderness EXTREMITIES: Normal motion all extremities, no cyanosis, no edema. NEUROLOGIC: Alert and oriented, no acute motor or sensory deficits, no focal weakness, cranial nerves grossly intact. SKIN: Poor skin turgor, No rash, no jaundice, no diaphoresis. 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 Radiation completed 02/28/2010 received 7200 cGy Finding of asymmetry of larynx on the right. 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 Radiation completed 02/28/2010 received 7200 cGy Finding of asymmetry of larynx on the right. Plan for laryngoscopy and biopsy 01/27/2017 " Cervical stenosis of spinal canal (Resolved) Chronic low back pain (Chronic) "[facility]" COPD (chronic obstructive pulmonary disease) (Chronic) "is on home oxygen" Depression Hypothyroidism (Chronic) Lung cancer (Chronic 10/04/17) "Status post bronchoscopy and biopsy 06/03/2016 right upper lobectomy and lymph node dissection 06/25/2016 Squamous cell carcinoma Stage pT1b pN0M0 Development of a left lower lobe pulmonary nodule Status post bronchoscopy and biopsy pathology nondiagnostic 06/25/2016 Status post SBRT completed 02/05/2017. 5 fractions were given for a total of 5000 cGy. Recheck PET/CT October 04, 2017 revealing right lower lobe nodule with FDG avidity Status post bronchoscopy and biopsies October 28, 2017 Node biopsies negative, bronchial washings negative Status post lung nodule clinic discussion and consensus for stereotactic radiation therapy Status post completion of stereotactic body radiation therapy November 26, 2017. He received 5000 cGy" On 11/05/17 11:37 Sirisha You wrote "Status post bronchoscopy and biopsy 06/03/2016 right upper lobectomy and lymph node dissection 06/25/2016 Squamous cell carcinoma Stage pT1b pN0M0 Development of a left lower lobe pulmonary nodule Status post bronchoscopy and biopsy pathology nondiagnostic 06/25/2016 Status post SBRT completed 02/05/2017. 5 fractions were given for a total of 5000 cGy. Recheck PET/CT October 04, 2017 revealing right lower lobe nodule with FDG avidity Status post bronchoscopy and biopsies October 28, 2017 Node biopsies negative, bronchial washings negative Status post lung nodule clinic discussion and consensus for stereotactic radiation therapy" On 02/18/17 10:09 Sirisha You wrote "Status post bronchoscopy and biopsy 06/03/2016 right upper lobectomy and lymph node dissection 06/25/2016 Squamous cell carcinoma Stage pT1b pN0M0 Development of a left lower lobe pulmonary nodule Status post bronchoscopy and biopsy pathology nondiagnostic 06/25/2016 Status post SBRT completed 02/05/2017. 5 fractions were given for a total of 5000 cGy." On 01/07/17 09:52 Sirisha You wrote "Status post bronchoscopy and biopsy 06/03/2016 right upper lobectomy and lymph node dissection 06/25/2016 Squamous cell carcinoma Stage pT1b pN0M0 Development of a left lower lobe pulmonary nodule Status post bronchoscopy and biopsy pathology nondiagnostic 06/25/2016" On 01/07/17 09:51 Sirisha You wrote "Status post bronchoscopy and biopsy 06/03/2016 right upper lobectomy and lymph node dissection 06/25/2016 Squamous cell carcinoma Stage pT1b pN0M0 Development of a left lower lobe pulmonary nodule" Oxygen dependent Presence of externally removable percutaneous endoscopic gastrostomy (PEG) tube (~2019) Surgical History H/O cervical spine surgery (Acute) H/O neck surgery (Acute) right side Percutaneous endoscopic gastrostomy status (Acute) S/P lobectomy of lung (Resolved) Social History Preferred Language: [place] Communication Ability: Effective Beliefs That Will Affect Care: None Current Living Situation: Family Feels Safe at Home: Yes Smoking Status: Former smoker Second Hand Exposure: No ; Hx Alcohol Use: No Hx Substance Use: No Allergies Allergies Allergy/AdvReac Type Severity Reaction Status Date / Time NSAIDS (Non-Steroidal AdvReac Mild upset Verified 12/18/19 01:40 Anti-Inflamma stomach Home Meds Home Medications Medication Instructions Recorded Confirmed fentanyl 1 patch TRANSDERMAL Q72H 05/11/18 12/18/19 ipratropium-albuterol 1 puff INHALATION QID 05/11/18 12/18/19 ipratropium-albuterol 3 ml INHALATION QID 05/11/18 12/18/19 loratadine 10 mg FEEDING TUBE DAILY 05/11/18 12/18/19 magnesium oxide 420 mg FEEDING TUBE DAILY 05/11/18 12/18/19 nutritional supplements [Nutren 6 can FEEDING TUBE DAILY 05/11/18 12/18/19 2.0] potassium chloride 40 meq FEEDING TUBE DAILY 05/11/18 12/18/19 acetaminophen 500 mg tablet 500 mg FEEDING TUBE DAILY tab 02/15/19 12/18/19 budesonide-formoterol HFA 160 2 puffs INH BID 02/15/19 12/18/19 mcg-4.5 mcg/actuation aerosol inhaler buspirone 5 mg tablet 5 mg FEEDING TUBE BID 02/15/19 12/18/19 loperamide 1 mg/7.5 mL oral liquid 2 mg FEEDING TUBE Q4H PRN 02/15/19 12/18/19 mirtazapine 45 mg tablet 45 mg FEEDING TUBE DAILY 02/15/19 12/18/19 naproxen sodium 220 mg capsule 220 mg FEEDING TUBE DAILY cap 02/15/19 12/18/19 wheat dextrin 3 gram/3.8 gram oral 1.5 gm PO DAILY PRN gm 02/15/19 12/18/19 powder aspirin 325 mg tablet 325 mg FEEDING TUBE DAILY tab 05/19/19 12/18/19 lansoprazole 30 mg capsule,delayed 30 mg FEEDING TUBE DAILY 05/19/19 12/18/19 release levothyroxine 137 mcg capsule 137 mcg FEEDING TUBE DAILY 05/19/19 12/18/19 sertraline 100 mg tablet 100 mg FEEDING TUBE DAILY tab 05/19/19 12/18/19 gabapentin 300 mg capsule 300 mg FEEDING TUBE BID cap 07/10/19 12/18/19 oxycodone 5 mg capsule 10 mg FEEDING TUBE Q6 cap 07/10/19 12/18/19 azithromycin [Zithromax] 500 mg FEEDING TUBE UD 12/18/19 12/18/19 doxycycline hyclate 100 mg FEEDING TUBE BID 12/18/19 12/18/19 Previous Rx's Medication Instructions Recorded Oxygen Home #1 ea 05/19/19 Results & Data (ED) Vital Signs Vital Signs - 24 hr 12/17/19 23:26 12/17/19 23:44 12/18/19 00:00 Temperature 37.0 C Temperature Source Oral Pulse Rate 126 H 117 H 115 H Pulse Rate [Right Finger] Pulse Rate from SpO2 Sensor 117 H Respiratory Rate 20 22 20 Respiratory Effort / Characteristics Non-Labored Respiratory Depth Normal Blood Pressure 126/80 Blood Pressure [Right Arm] Blood Pressure Mean 95 Blood Pressure Mean [Right Arm] Blood Pressure Position Sitting Pulse Oximetry 96 93 Oxygen Delivery Method Nasal Cannula Oxygen Flow Rate Sepsis Recent Fever Within 48 Hours No Sepsis Action Taken by Nursing No Action Required 12/18/19 00:13 12/18/19 00:15 12/18/19 00:30 Temperature Temperature Source Pulse Rate 118 H 112 H Pulse Rate [Right Finger] 114 H 106 H Pulse Rate from SpO2 Sensor 118 H 112 H Respiratory Rate 21 16 20 Respiratory Effort / Characteristics Non-Labored Non-Labored Spontaneous Respiratory Depth Normal Blood Pressure 126/77 Blood Pressure [Right Arm] 152/101 H Blood Pressure Mean 91 Blood Pressure Mean [Right Arm] 118 Blood Pressure Position Pulse Oximetry 92 94 95 Oxygen Delivery Method Nasal Cannula Nebulizer Oxygen Flow Rate 3 Sepsis Recent Fever Within 48 Hours Sepsis Action Taken by Nursing 12/18/19 00:31 12/18/19 01:00 12/18/19 01:01 Temperature Temperature Source Pulse Rate 108 H 113 H 114 H Pulse Rate [Right Finger] Pulse Rate from SpO2 Sensor 108 H 115 H 114 H Respiratory Rate 19 21 17 Respiratory Effort / Characteristics Respiratory Depth Blood Pressure 152/101 H 161/108 H Blood Pressure [Right Arm] Blood Pressure Mean 128 132 Blood Pressure Mean [Right Arm] Blood Pressure Position Pulse Oximetry 98 98 99 Oxygen Delivery Method Oxygen Flow Rate Sepsis Recent Fever Within 48 Hours Sepsis Action Taken by Nursing 12/18/19 01:30 12/18/19 02:00 12/18/19 02:01 Temperature Temperature Source Pulse Rate 111 H 115 H 115 H Pulse Rate [Right Finger] Pulse Rate from SpO2 Sensor 111 H 123 H 117 H Respiratory Rate 20 17 25 H Respiratory Effort / Characteristics Respiratory Depth Blood Pressure 117/68 121/68 Blood Pressure [Right Arm] Blood Pressure Mean 89 90 Blood Pressure Mean [Right Arm] Blood Pressure Position Pulse Oximetry 97 92 93 Oxygen Delivery Method Oxygen Flow Rate 3 3 3 Sepsis Recent Fever Within 48 Hours Sepsis Action Taken by Nursing 12/18/19 02:30 12/18/19 02:31 Temperature Temperature Source Pulse Rate 110 H 109 H Pulse Rate [Right Finger] Pulse Rate from SpO2 Sensor 111 H 110 H Respiratory Rate 16 24 Respiratory Effort / Characteristics Respiratory Depth Blood Pressure 108/60 Blood Pressure [Right Arm] Blood Pressure Mean 68 Blood Pressure Mean [Right Arm] Blood Pressure Position Pulse Oximetry 90 91 Oxygen Delivery Method Oxygen Flow Rate 3 3 Sepsis Recent Fever Within 48 Hours Sepsis Action Taken by Nursing Laboratory Data Result diagrams: 12/18/19 00:12/18/19 00:05 Lab Results 12/18/19 12/18/19 12/18/19 Range/Units 00:05 00:05 00:05 WBC 7.87 (4.8-10.8) K/uL RBC 3.94 L (4.7-6.1) M/uL Hgb 11.8 L (14.0-18.0) g/dL Hct 34.7 L (42-52) % MCV 88.1 (80-100) fL MCH 29.9 (25-34) pg MCHC 34.0 (32-36) g/dL RDW Std Deviation 46.3 (36.4-46.3) fL RDW Coeff of Stephanie 14.3 (11.5-14.5) % Plt Count 358 (130-400) K/uL MPV 9.0 (7.4-10.4) fL Immature Gran % (Auto) 0.3 % Neut % (Auto) 83.0 % Lymph % (Auto) 8.9 % [place] % (Auto) 5.5 % Eos % (Auto) 1.9 % Baso % (Auto) 0.4 % Immature Gran # (Auto) 0.02 (0.00-0.02) K/uL Neut # (Auto) 6.54 H (1.4-6.5) K/uL Lymph # (Auto) 0.70 L (1.2-3.4) K/uL [place] # (Auto) 0.43 (0.11-0.59) K/uL Eos # (Auto) 0.15 (0-0.5) K/uL Baso # (Auto) 0.03 (0-0.2) K/uL PT 10.1 (9.0-12.0) Seconds INR 1.0 (0.9-1.1) Sodium 132 L (136-145) mmol/L Potassium 3.8 (3.5-5.1) mmol/L Chloride 96 L (98-107) mmol/L Carbon Dioxide 27 (21-32) mmol/L Anion Gap 10.0 (3-11) BUN 8 (7-18) mg/dl Creatinine 0.47 L (0.6-1.4) mg/dl Est Cr Clr Drug Dosing 152.7 ml/min Est GFR ( Amer) 133.3 Est GFR (Non-Af Amer) 115.0 BUN/Creatinine Ratio 16.8 (10-20) Glucose 102 H (70-99) mg/dl Lactate (0.4-2.0) mmol/L Calcium 9.0 (8.5-10.1) mg/dl Magnesium 2.1 (1.8-2.4) mg/dl Total Bilirubin 0.3 (0.2-1) mg/dl Direct Bilirubin < 0.1 (0-0.2) mg/dl AST 15 (15-37) U/L ALT 18 (12-78) U/L Alkaline Phosphatase 82 (45-117) U/L Troponin I < 0.015 (0-0.045) ng/ml NT-Pro-B Natriuret Pep 278 (0-900) pg/ml Total Protein 7.5 (6.4-8.2) gm/dl Albumin 3.7 (3.4-5.0) gm/dl Lipase 54 L (73-393) U/L COVID-19 PCR (Negative) 12/18/19 12/18/19 Range/Units 00:05 00:05 WBC (4.8-10.8) K/uL RBC (4.7-6.1) M/uL Hgb (14.0-18.0) g/dL Hct (42-52) % MCV (80-100) fL MCH (25-34) pg MCHC (32-36) g/dL RDW Std Deviation (36.4-46.3) fL RDW Coeff of Stephanie (11.5-14.5) % Plt Count (130-400) K/uL MPV (7.4-10.4) fL Immature Gran % (Auto) % Neut % (Auto) % Lymph % (Auto) % [place] % (Auto) % Eos % (Auto) % Baso % (Auto) % Immature Gran # (Auto) (0.00-0.02) K/uL Neut # (Auto) (1.4-6.5) K/uL Lymph # (Auto) (1.2-3.4) K/uL [place] # (Auto) (0.11-0.59) K/uL Eos # (Auto) (0-0.5) K/uL Baso # (Auto) (0-0.2) K/uL PT (9.0-12.0) Seconds INR (0.9-1.1) Sodium (136-145) mmol/L Potassium (3.5-5.1) mmol/L Chloride (98-107) mmol/L Carbon Dioxide (21-32) mmol/L Anion Gap (3-11) BUN (7-18) mg/dl Creatinine (0.6-1.4) mg/dl Est Cr Clr Drug Dosing ml/min Est GFR ( Amer) Est GFR (Non-Af Amer) BUN/Creatinine Ratio (10-20) Glucose (70-99) mg/dl Lactate 1.7 (0.4-2.0) mmol/L Calcium (8.5-10.1) mg/dl Magnesium (1.8-2.4) mg/dl Total Bilirubin (0.2-1) mg/dl Direct Bilirubin (0-0.2) mg/dl AST (15-37) U/L ALT (12-78) U/L Alkaline Phosphatase (45-117) U/L Troponin I (0-0.045) ng/ml NT-Pro-B Natriuret Pep (0-900) pg/ml Total Protein (6.4-8.2) gm/dl Albumin (3.4-5.0) gm/dl Lipase (73-393) U/L COVID-19 PCR NEGATIVE (Negative) Administered Medications Discontinued Medications Albuterol (Duoneb) 12 ml NEB ONE ONE Stop: 12/17/19 23:46 Last Admin: 12/18/19 00:05 Dose: 12 ml Documented by: [id number] Enoxaparin Sodium (Lovenox) 40 mg SQ Q24H JOCELYN Stop: 01/17/20 02:44 Last Admin: 12/18/19 02:47 Dose: 40 mg Documented by: [id number] Sodium Chloride (Nss 1000ml) 1,000 mls @ 999 mls/hr IV .Q1H1M ONE Stop: 12/18/19 00:45 Last Infusion: 12/18/19 01:15 Dose: 0 mls/hr Documented by: [id number] Admin: 12/18/19 00:16 Dose: 999 mls/hr Documented by: [id number] Piperacillin Sod/Tazobactam Sod (Zosyn) 4.5 gm in 120 mls @ 240 mls/hr IV NOW ONE Stop: 12/18/19 00:59 Last Infusion: 12/18/19 01:49 Dose: 0 mls/hr Documented by: [id number] Admin: 12/18/19 00:53 Dose: 240 mls/hr Documented by: [id number] Vancomycin HCl 1,500 mg/ (Sodium Chloride) 530 mls @ 200 mls/hr IV NOW ONE Stop: 12/18/19 03:08 Last Admin: 12/18/19 01:06 Dose: 200 mls/hr Documented by: [id number] Methylprednisolone (Solumedrol) 125 mg IV NOW STA Stop: 12/17/19 23:46 Last Admin: 12/18/19 00:14 Dose: 125 mg Documented by: [id number] Morphine Sulfate (Morphine Sulfate) 8 mg IV NOW STA Stop: 12/17/19 23:51 Last Admin: 12/18/19 00:13 Dose: 8 mg Documented by: [id number] Discharge Plan Visit Data Chief Complaint: Illness Stated Complaint: SPITTING BLOOD ED Provider: Vahe Orellana Discharge Problem: LLL pneumonia, Lung cancer, Acute dehydration Discharge Instructions Interventions: ED Discharge Assessment Last Done: 12/18/19 03:05
[2019-12-17] MEDS ORDERED: MoRPHine SULFATE 10 MG/ML CARP/VIAL IV STA (23:50)
[2019-12-18] MEDS ORDERED: PIPERACILLIN/TAZOBACTAM 4.5 GM/120 ML BAG IV ONE (00:30)
[2019-12-18] MEDS ORDERED: VANCOMYCIN HCL 1,500 MG in SODIUM CHLORIDE 0.9% 500 ML IV ONE (00:30)
[2019-12-18] MEDS ORDERED: VANCOMYCIN CONSULT ACTIVE PRN (00:30)
[2019-12-18] MEDS ORDERED: PIPERACILL/TAZOBAC CONSULT ACTIVE PRN ×2 (00:30→03:57)
[2019-12-18 00:44] LABS: Prothrombin Time 10.1 Seconds (9.0-12.0)
[2019-12-18 00:48] LABS: Basophils # (auto) 0.03 K/uL (0-0.2); Basophils % (auto) 0.4 %; Eosinophils # (auto) 0.15 K/uL (0-0.5); Eosinophils % (auto) 1.9 %; Hematocrit (blood only) 34.7 % (42-52); Hemoglobin 11.8 g/dL (14.0-18.0); Immature Granulocytes # (auto) 0.02 K/uL (0.00-0.02); Immature Granulocytes % (auto) 0.3 %; Lymphocytes % (auto) 8.9 %; Mean Corpuscular Hemoglobin 29.9 pg (25-34); Mean Corpuscular Volume 88.1 fL (80-100); Monocytes # (auto) 0.43 K/uL (0.11-0.59); Monocytes % (auto) 5.5 %; Neutrophils # (auto) 6.54 K/uL (1.4-6.5); Platelet Count 358 K/uL (130-400); RDW Coefficient of Variation 14.3 % (11.5-14.5); RDW Standard Deviation 46.3 fL (36.4-46.3); Red Blood Count 3.94 M/uL (4.7-6.1); White Blood Count 7.87 K/uL (4.8-10.8)
[2019-12-18 00:53] LABS: Alanine Aminotransferase 18 U/L (12-78); Albumin Level 3.7 gm/dl (3.4-5.0); Aspartate Aminotransferase 15 U/L (15-37); BUN Creatinine Ratio 16.8 (10-20); Bilirubin Direct < 0.1 mg/dl (0-0.2); Blood Urea Nitrogen 8 mg/dl (7-18); Carbon Dioxide 27 mmol/L (21-32); Chloride 96 mmol/L (98-107); Creatinine Clr Calc Pharmacy 152.7 ml/min; Est GFR (African American) 133.3; Glucose 102 mg/dl (70-99); Lipase 54 U/L (73-393); Magnesium 2.1 mg/dl (1.8-2.4); Potassium 3.8 mmol/L (3.5-5.1); Sodium 132 mmol/L (136-145)
[2019-12-18 00:58] LABS: Alkaline Phosphatase 82 U/L (45-117); Bilirubin,Total 0.3 mg/dl (0.2-1); NT Pro B Type Natriuretic Pept 278 pg/ml (0-900); Total Protein 7.5 gm/dl (6.4-8.2); Troponin I < 0.015 ng/ml (0-0.045)
[2019-12-18] MEDS ORDERED: WHEAT DEXTRIN PO PRN (02:40)
[2019-12-18] MEDS ORDERED: ENOXAPARIN INJ 40 MG/0.4 ML SYR SQ SCH (02:45)
[2019-12-18] MEDS ORDERED: fentaNYL 25 MCG/HR TDSY TD SCH (02:45)
--- NOTE | 2019-12-18 03:43 | History & Physical Report ---
Date of Service December 18, 2019 Assessment & Plan (1) Hemoptysis: 69 yo M with PMH lung and supraglottic cancer s/p lobectomy, chemotherapy and radiation, O2 dependent COPD admitted for new shortness of breath and hemoptysis. 1) CAP - new shortness of breath on exertion, WBC 12 with neutrophilic predominance, CXR showing BL infiltrate and likely LLL PNA - low risk for hospital associated pneumonia, though high risk for pseudomonas with O2 dependent COPD - given hx of lung surgery and cancer, noncon chest CT ordered to eval for multifocal PNA - MRSA nares pending - received Vanc + Zosyn x1 in ED, Zosyn continued for pseudomonas coverage - BCX pending, can titrate down to rocephin + azithromycin if no concern for MRSA/Pseudomonas - daily CBC 2) Hemoptysis & Anemia - likely secondary to supraglottic cancer + new PNA - Hg 11.8 on admission; continue to monitor - holding chemical DVT prophylaxis until bleeding source identified - continue lansoprazole 30 mg daily 3) COPD - 3L NC requirement at all times at home - titrate O2 to sat >88% - continue home duonebs QID - continue home Budesonide-formoterol 2 puffs BID 4) Pain 2/2 lung and supraglottic cancer - home regimen continued of Oxycodone 10 mg Q6, 75 mg Fentanyl Patch Q3D, Gabapentin 300 mg BID - avoid NSAIDs in light of hemoptysis 5) Hypothyroidism - continue home levothyroxine 137 mcg 6) Anxiety - continue home sertraline 100 mg and Buspar 5 mg BID 7) CAD - continue home ASA 325 mg 8) Insomnia - home mirtazipine 45 mg QHS DVT PPX: SCDs Diet: ice chips and sips by mouth; patient cannot swallow food or pills. All medications by PEG tube, diet by PEG tube. Code Status: Full Code Dispo: Med/Surg with tele, home after eval and tx of PNA. (2) Shortness of breath on exertion: (3) Presence of externally removable percutaneous endoscopic gastrostomy (PEG) tube: (4) Anxiety: (5) Oxygen dependent: (6) Lung cancer: (7) Cancer of supraglottis: (8) COPD (chronic obstructive pulmonary disease): (9) Depression: (10) Hypothyroidism: (11) Chronic low back pain: History of Present Illness Mr. Boss is a 69 yo M with a PMH of lung cancer s/p lobectomy, supraglottic cancer s/p chemotherapy and radiation, O2 dependent COPD, anxiety, PEG tube placement, and hypothyroidism who presented to the ED with complaints of generalized weakness, fatigue, increasing hematemesis and shortness of breath for the past week. Over the past week he has become increasingly short of breath while exerting himself and walking around his house. He requires 3LNC at baseline at all times and has become short of breath even with that support, noting that earlier this week his O2 sats dropped to ~79 after his cannula fell out for a few minutes. Shortly after this episode he started having episodes of bright red hemoptysis with cough. He notes this has gotten better as the week has progressed, and only 1/3 of his sputum content is blood now whereas it previously was 100% blood. He denies any coffee ground emesis or pain with these coughing spells. The volume of blood in the sputum also decreases as the day progresses. He notes that his temperature at home is fluctuant, but has not gone over 101 in the past week. He attests to feeling feverish, but denies any night sweats or weight loss. He has been experiencing some baseline nausea however he denies any vomiting, diarrhea or stomach pain. With his multiple cancer diagnoses, COPD, and cough for the past few months, he was put on Azithromycin MWF, and doxycycline 100 mg BID, as well as a recent steroid burst. He notes that when he runs out of his "routine antibiotics" as he has in the past week, he quickly decompensates and has problems with his breathing. Primary Care Provider: Chapito Milner DO Allergies Allergy/AdvReac Type Severity Reaction Status Date / Time NSAIDS (Non-Steroidal AdvReac Mild upset Verified 12/18/19 01:40 Anti-Inflamma stomach Home Medications Home Medications Medication Instructions Recorded Confirmed Type fentanyl 1 patch TRANSDERMAL Q72H 05/11/18 12/18/19 History ipratropium-albuterol 1 puff INHALATION QID 05/11/18 12/18/19 History ipratropium-albuterol 3 ml INHALATION QID 05/11/18 12/18/19 History loratadine 10 mg FEEDING TUBE DAILY 05/11/18 12/18/19 History magnesium oxide 420 mg FEEDING TUBE DAILY 05/11/18 12/18/19 History nutritional supplements [Nutren 6 can FEEDING TUBE DAILY 05/11/18 12/18/19 History 2.0] potassium chloride 40 meq FEEDING TUBE DAILY 05/11/18 12/18/19 History acetaminophen 500 mg tablet 500 mg FEEDING TUBE DAILY tab 02/15/19 12/18/19 History budesonide-formoterol HFA 160 2 puffs INH BID 02/15/19 12/18/19 History mcg-4.5 mcg/actuation aerosol inhaler buspirone 5 mg tablet 5 mg FEEDING TUBE BID 02/15/19 12/18/19 History loperamide 1 mg/7.5 mL oral liquid 2 mg FEEDING TUBE Q4H PRN 02/15/19 12/18/19 History mirtazapine 45 mg tablet 45 mg FEEDING TUBE DAILY 02/15/19 12/18/19 History naproxen sodium 220 mg capsule 220 mg FEEDING TUBE DAILY cap 02/15/19 12/18/19 History wheat dextrin 3 gram/3.8 gram oral 1.5 gm PO DAILY PRN gm 02/15/19 12/18/19 History powder Oxygen Home #1 ea 05/19/19 09/19/19 Rx aspirin 325 mg tablet 325 mg FEEDING TUBE DAILY tab 05/19/19 12/18/19 History lansoprazole 30 mg capsule,delayed 30 mg FEEDING TUBE DAILY 05/19/19 12/18/19 History release levothyroxine 137 mcg capsule 137 mcg FEEDING TUBE DAILY 05/19/19 12/18/19 History sertraline 100 mg tablet 100 mg FEEDING TUBE DAILY tab 05/19/19 12/18/19 History gabapentin 300 mg capsule 300 mg FEEDING TUBE BID cap 07/10/19 12/18/19 History oxycodone 5 mg capsule 10 mg FEEDING TUBE Q6 cap 07/10/19 12/18/19 History azithromycin [Zithromax] 500 mg FEEDING TUBE UD 12/18/19 12/18/19 History doxycycline hyclate 100 mg FEEDING TUBE BID 12/18/19 12/18/19 History Past Med/Surg History Medical History (Updated 12/18/19 @ 03:41 by Makenzie Kelsey MD) Anxiety Cancer of supraglottis (Resolved) "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 Radiation completed 02/28/2010 received 7200 cGy Finding of asymmetry of larynx on the right. 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 Radiation completed 02/28/2010 received 7200 cGy Finding of asymmetry of larynx on the right. Plan for laryngoscopy and biop sy 01/27/2017 " Cervical stenosis of spinal canal (Resolved) Chronic low back pain (Chronic) "[facility]" COPD (chronic obstructive pulmonary disease) (Chronic) "is on home oxygen" Depression Hypothyroidism (Chronic) Lung cancer (Chronic 10/04/17) "Status post bronchoscopy and biopsy 06/03/2016 right upper lobectomy and lymph node dissection 06/25/2016 Squamous cell carcinoma Stage pT1b pN0M0 Development of a left lower lobe pulmonary nodule Status post bronchoscopy and biopsy pathology nondiagnostic 06/25/2016 Status post SBRT completed 02/05/2017. 5 fractions were given for a total of 5000 cGy. Recheck PET/CT October 04, 2017 revealing right lower lobe nodule with FDG avidity Status post bronchoscopy and biopsies October 28, 2017 Node biopsies negative, bronchial washings negative Status post lung nodule clinic discussion and consensus for stereotactic radiation therapy Status post completion of stereotactic body radiation therapy November 26, 2017. He received 5000 cGy" On 11/05/17 11:37 Sirisha You wrote "Status post bronchoscopy and biopsy 06/03/2016 right upper lobectomy and lymph node dissection 06/25/2016 Squamous cell carcinoma Stage pT1b pN0M0 Development of a left lower lobe pulmonary nodule Status post bronchoscopy and biopsy pathology nondiagnostic 06/25/2016 Status post SBRT completed 02/05/2017. 5 fractions were given for a total of 5000 cGy. Recheck PET/CT October 04, 2017 revealing right lower lobe nodule with FDG avidity Status post bronchoscopy and biopsies October 28, 2017 Node biopsies negative, bronchial washings negative Status post lung nodule clinic discussion and consensus for stereotactic radiation therapy" On 02/18/17 10:09 Sirisha You wrote "Status post bronchoscopy and biopsy 06/03/2016 right upper lobectomy and lymph node dissection 06/25/2016 Squamous cell carcinoma Stage pT1b pN0M0 Development of a left lower lobe pulmonary nodule Status post bronchoscopy and biopsy pathology nondiagnostic 06/25/2016 Status post SBRT completed 02/05/2017. 5 fractions were given for a total of 5000 cGy." On 01/07/17 09:52 Sirisha You wrote "Status post bronchoscopy and biopsy 06/03/2016 right upper lobectomy and lymph node dissection 06/25/2016 Squamous cell carcinoma Stage pT1b pN0M0 Development of a left lower lobe pulmonary nodule Status post bronchoscopy and biopsy pathology nondiagnostic 06/25/2016" On 01/07/17 09:51 Sirisha You wrote "Status post bronchoscopy and biopsy 06/03/2016 right upper lobectomy and lymph node dissection 06/25/2016 Squamous cell carcinoma Stage pT1b pN0M0 Development of a left lower lobe pulmonary nodule" Oxygen dependent Presence of externally removable percutaneous endoscopic gastrostomy (PEG) tube (~2019) Surgical History H/O cervical spine surgery (Acute) H/O neck surgery (Acute) right side Percutaneous endoscopic gastrostomy status (Acute) S/P lobectomy of lung (Resolved) Social History Preferred Language: [place] Communication Ability: Effective 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 Beliefs That Will Affect Care: None Current Living Situation: Spouse and Parent Other Information That Helps Us Care for You: No Feels Safe at Home: Yes Safety Concerns: Feels Safe At This Time Smoking Status: Former smoker Do You Dip or Chew Tobacco: No ; Second Hand Exposure: No ; Tobacco Cessation Education Requested by Patient: No Hx Alcohol Use: No Hx Substance Use: No Review of Systems Constitutional: + fever, + fatigue and + weakness; no chills and no sweats Eyes: no diplopia and no worsening vision Respiratory: + cough, + dyspnea, + hemoptysis and + sputum production Cardiovascular: + dyspnea on exertion; no chest pain, no dyspnea at rest, no edema and no calf pain Gastrointestinal: + nausea; no abdominal pain, no vomiting, no change in stools, no diarrhea/loose stools, no blood in stools and no melena Genitourinary: no dysuria, no urinary frequency, no urinary incontinence and no hematuria Integumentary: no rash Neurologic: + generalized weakness; no loss of sensation, no tingling and no numbness Endocrine: + fatigue Physical Exam Constitutional: + thin Eyes: PERRL, conjunctivae normal, anicteric sclerae ENMT: Mouth: no oral mucosal abnormality and no tongue abnormality Respiratory: good air movement to bases bilaterally, scattered rhonchi, no wheezes or crackles noted, periodic coughing while on 3LNC Cardiovascular: Tachycardic, regular rhythm, no murmurs, gallops or rubs appreciated. No peripheral edema, capillary refill 2-3 seconds. Gastrointestinal (Abdomen): Soft, nontender, nondistended, normal bowel sounds. PEG tube in place, no tenderness near insertion, no leakage, surrounding rash or skin irritation. Skin: no rashes, warm and dry Neurologic: Speech / Cognition: normal speech Motor/Sensory: + tremor bilateral resting tremor of hands Results & Data Results & Data ([facility]) Vital Signs (Past 12 Hours) Vital Signs Temp Pulse Pulse Resp BP BP Pulse Ox 12/18/19 02:31 109 H 24 91 12/18/19 02:30 110 H 16 108/60 90 12/18/19 02:01 115 H 25 H 93 12/18/19 02:00 115 H 17 121/68 92 12/18/19 01:30 111 H 20 117/68 97 12/18/19 01:01 114 H 17 99 12/18/19 01:00 113 H 21 161/108 H 98 12/18/19 00:31 108 H 19 152/101 H 98 12/18/19 00:30 112 H 106 H 20 152/101 H 95 12/18/19 00:15 114 H 16 94 12/18/19 00:13 118 H 21 126/77 92 12/18/19 00:00 115 H 20 12/17/19 23:44 117 H 22 93 12/17/19 23:26 37.0 C 126 H 20 126/80 96 Laboratory Results WBC 7.87 K/uL (4.8-10.8) 12/18/19 00:05 RBC 3.94 M/uL (4.7-6.1) L 12/18/19 00:05 Hgb 11.8 g/dL (14.0-18.0) L 12/18/19 00:05 Hct 34.7 % (42-52) L 12/18/19 00:05 MCV 88.1 fL (80-100) 12/18/19 00:05 MCH 29.9 pg (25-34) 12/18/19 00:05 MCHC 34.0 g/dL (32-36) 12/18/19 00:05 RDW Std Deviation 46.3 fL (36.4-46.3) 12/18/19 00:05 RDW Coeff of Stephanie 14.3 % (11.5-14.5) 12/18/19 00:05 Plt Count 358 K/uL (130-400) 12/18/19 00:05 MPV 9.0 fL (7.4-10.4) 12/18/19 00:05 Immature Gran % (Auto) 0.3 % 12/18/19 00:05 Neut % (Auto) 83.0 % 12/18/19 00:05 Lymph % (Auto) 8.9 % 12/18/19 00:05 [place] % (Auto) 5.5 % 12/18/19 00:05 Eos % (Auto) 1.9 % 12/18/19 00:05 Baso % (Auto) 0.4 % 12/18/19 00:05 Immature Gran # (Auto) 0.02 K/uL (0.00-0.02) 12/18/19 00:05 Neut # (Auto) 6.54 K/uL (1.4-6.5) H 12/18/19 00:05 Lymph # (Auto) 0.70 K/uL (1.2-3.4) L 12/18/19 00:05 [place] # (Auto) 0.43 K/uL (0.11-0.59) 12/18/19 00:05 Eos # (Auto) 0.15 K/uL (0-0.5) 12/18/19 00:05 Baso # (Auto) 0.03 K/uL (0-0.2) 12/18/19 00:05 PT 10.1 Seconds (9.0-12.0) 12/18/19 00:05 INR 1.0 (0.9-1.1) 12/18/19 00:05 Sodium 132 mmol/L (136-145) L 12/18/19 00:05 Potassium 3.8 mmol/L (3.5-5.1) 12/18/19 00:05 Chloride 96 mmol/L (98-107) L 12/18/19 00:05 Carbon Dioxide 27 mmol/L (21-32) 12/18/19 00:05 Anion Gap 10.0 (3-11) 12/18/19 00:05 BUN 8 mg/dl (7-18) 12/18/19 00:05 Creatinine 0.47 mg/dl (0.6-1.4) L 12/18/19 00:05 Est Cr Clr Drug Dosing 152.7 ml/min 12/18/19 00:05 Est GFR ( Amer) 133.3 12/18/19 00:05 Est GFR (Non-Af Amer) 115.0 12/18/19 00:05 BUN/Creatinine Ratio 16.8 (10-20) 12/18/19 00:05 Glucose 102 mg/dl (70-99) H 12/18/19 00:05 Lactate 1.7 mmol/L (0.4-2.0) 12/18/19 00:05 Calcium 9.0 mg/dl (8.5-10.1) 12/18/19 00:05 Magnesium 2.1 mg/dl (1.8-2.4) 12/18/19 00:05 Total Bilirubin 0.3 mg/dl (0.2-1) 12/18/19 00:05 Direct Bilirubin < 0.1 mg/dl (0-0.2) 12/18/19 00:05 AST 15 U/L (15-37) 12/18/19 00:05 ALT 18 U/L (12-78) 12/18/19 00:05 Alkaline Phosphatase 82 U/L (45-117) 12/18/19 00:05 Troponin I < 0.015 ng/ml (0-0.045) 12/18/19 00:05 NT-Pro-B Natriuret Pep 278 pg/ml (0-900) 12/18/19 00:05 Total Protein 7.5 gm/dl (6.4-8.2) 12/18/19 00:05 Albumin 3.7 gm/dl (3.4-5.0) 12/18/19 00:05 Lipase 54 U/L (73-393) L 12/18/19 00:05 COVID-19 PCR NEGATIVE (Negative) 12/18/19 00:05 Code Status & VTE Plan VTE Prophylaxis Plan VTE Prophylaxis will be ordered: Yes Supervising Physician Co-Signing Physician Notes Patient seen and examined, chart reviewed, case discussed with Dr. Kelsey and I agree with her assessment and plan as above Resident Activity Tracking Resident Involvement: Resident Care Provided Care Provided: Adult Hospital Medicine
[2019-12-18] MEDS ORDERED: ONDANSETRON INJ 2 MG/ML 2 ML VIAL IV PRN (04:18)
[2019-12-18] MEDS ORDERED: OXYCODONE 10 MG feeding tube SCH (06:00)
[2019-12-18] MEDS ORDERED: PIPERACILLIN/TAZOBACTAM 3.375 GM in DEXTROSE 5% 100 ML IV SCH (06:00)
[2019-12-18] MEDS: OXYCODONE HCL SOLN 5 MG/5 ML UDC GT SCH ×3 (06:09→18:00)
[2019-12-18] MEDS: LEVOTHYROXINE SODIUM 137 MCG TABLET PO SCH (06:11)
--- NOTE | 2019-12-18 07:09 | Billing Data ---
Date of Service December 18, 2019 Coding Level of Care Code 14366 Initial Inpt Care Lvl 3
--- NOTE | 2019-12-18 07:34 | XRay Report ---
XR chest 1V portable CLINICAL HISTORY: 69 years-old Male presenting with Shortness of breath. TECHNIQUE: Portable upright AP view of the chest was obtained. COMPARISON: 02/03/2019. FINDINGS: Cardiomediastinal silhouette normal. Patchy linear and an-like opacities at the left lung base have s lightly increased from prior. Lungs appear hyperinflated. Diffuse heterogeneity of lung parenchyma. B lunting of the right costophrenic angle is unchanged. No large effusion or pneumothorax. Degenerative changes of the thoracic spine. IMPRESSION: 1. Increasing left basilar infiltrate is in part chronic though appears increased from prior. This m ay relate to post radiation fibrotic changes of the left lower lobe and underlying malignancy though infection is difficult to exclude. 2. Underlying emphysema. ACT 112: Negative or not required by law. Electronically signed by: Francois Marin M.D. 12/18/2019 7:33 AM
[2019-12-18] MEDS: ALBUT/IPRATROP 3MG/0.5MG NEB 3 ML VIAL INH SCH ×4 (07:35→19:21)
[2019-12-18] MEDS ORDERED: CHECK FENTANYL PATCH PLACEMENT SCH (08:00)
--- NOTE | 2019-12-18 08:45 | CT Scan Report ---
CT chest wo con CLINICAL HISTORY: 69 years-old Male presenting with PNA, h/o malignancy, h/o lobectomy. TECHNIQUE: Multidetector CT imaging of the chest was performed without the use of intravenous contras t. IV contrast: None. One or more dose lowering techniques were used consistent with the principles o f ALARA (as low as reasonably achievable), including automatic exposure control, mA or kV adjustment to individual patient size, and/or use of iterative reconstruction. COMPARISON: 08/08/2019 and chest x-ray performed earlier today. CT DOSE (mGy.cm): The estimated cumulative dose is 251.65 mGy.cm. FINDINGS: Cleaners topogram: Unremarkable. Soft tissues: Normal thyroid and thoracic inlet. No axillary, supraclavicular, or mediastinal lymphad enopathy. Evaluation of the joyce limited without intravenous contrast. Atherosclerosis of the aorta. Normal heart size. Coronary artery calcification. Main pulmonary artery mildly enlarged. Trace right pleural thickening posteriorly similar to prior. Colonic interposition of the hepatic flexure. Gastro stomy tube in place. Lungs and airways: No pneumothorax. Layering secretions in the mid to lower trachea and right mainste m bronchus origin. Postsurgical changes of right upper lobectomy as on prior exam. Mild diffuse bronc hial wall thickening. Moderate to severe centrilobular emphysema. Architectural distortion of the rig ht lung is result of postsurgical change. Pulmonary arteries are not significantly enlarged relative to adjacent bronchi. No interlobular septal thickening. Crescentic solid peribronchovascular consolid ation in the left lower lobe appears to have increased from prior. The size makes measurement difficu lt. This extends from the left infrahilar region and abuts the left major fissure centrally. There is nodular subpleural extension, which is stable to slightly increased from prior. Additional scattered basilar predominant reticular opacities at the left lung base. Solid nodular opacities in the lingul a with mild diffuse added groundglass density in the lingula new from prior. Additional solid nodule more superiorly in the lingula new from prior. Limited nodular opacities in the right lower lobe, als o new from prior. Musculoskeletal: Degenerative changes of the spine. Multiple rib deformities unchanged. Osteopenia rios spected. IMPRESSION: 1. Interval increase in peribronchovascular crescentic consolidation in the left lower lobe with new scattered minimal nodular infiltrates in the lingula and dependent right lower lobe. Infection canno t be excluded though this is concerning for progression of malignancy. 2. Postsurgical changes of right upper lobectomy. 3. Emphysema. 4. Additional findings as above. ACT 112: Negative or not required by law. Electronically signed by: Francois Marin M.D. 12/18/2019 8:44 AM
[2019-12-18] MEDS: LANSOPRAZOLE 30 MG SOLTAB GT SCH (08:53)
[2019-12-18] MEDS: SERTRALINE HCL 100 MG TABLET PEG SCH (08:54)
[2019-12-18] MEDS: MIRTAZAPINE SOLTAB 15 MG PO SCH (08:55)
[2019-12-18] MEDS: POTASSIUM CHLORIDE 20 MEQ/15 ML UDC GT SCH (08:55)
[2019-12-18] MEDS: GABAPENTIN 250 MG/5 ML 470 ML BTL GT SCH ×2 (08:56→21:00)
[2019-12-18] MEDS: MAGNESIUM OXIDE 400 MG TAB PEG SCH (08:56)
[2019-12-18] MEDS: LORATADINE 1 MG/1 ML GT SCH (08:57)
[2019-12-18] MEDS: ACETAMINOPHEN SOLN 650 MG/20.3 ML UDC GT SCH (08:57)
[2019-12-18] MEDS: predniSONE 10 MG TABLET PO SCH (08:58)
[2019-12-18] MEDS: FLUTICASONE/VILANTEROL 100/25MCG 14 PUFFS/INHALER INH SCH (08:59)
[2019-12-18] MEDS ORDERED: GABAPENTIN 300 MG CAP PO SCH (09:00)
[2019-12-18] MEDS ORDERED: LEVOTHYROXINE 137 MCG feeding tube SCH (09:00)
[2019-12-18] MEDS ORDERED: LORATADINE 10 MG TAB GT SCH (09:00)
[2019-12-18] MEDS ORDERED: SERTRALINE HCL 100 MG TABLET PEG SCH (09:00)
[2019-12-18] MEDS ORDERED: MIRTAZAPINE SOLTAB 15 MG PO SCH (09:00)
[2019-12-18] MEDS ORDERED: IPRATROPIUM BROMIDE/ALBUTEROL respimat INH INH SCH (09:00)
[2019-12-18] MEDS ORDERED: ASPIRIN 81 MG CHEW GT SCH (09:00)
[2019-12-18] MEDS ORDERED: ACETAMINOPHEN 500 MG TAB PO SCH (09:00)
[2019-12-18] MEDS ORDERED: MAGNESIUM OXIDE 420 MG Feeding Tube SCH (09:00)
[2019-12-18] MEDS ORDERED: POTASSIUM CHLORIDE 40 MEQ Feeding Tube SCH (09:00)
[2019-12-18] MEDS ORDERED: ASPIRIN 325 MG ECTAB PO SCH (09:00)
[2019-12-18] MEDS ORDERED: NUTRITIONAL SUPPLEMENTS Feeding Tube SCH (09:00)
[2019-12-18] MEDS ORDERED: BUDESONIDE/FORMOTEROL FUMARATE 160/4.5 60 PUFFS/INHALER INH SCH (09:00)
[2019-12-18] MEDS ORDERED: NON-FORMULARY MEDICATION (Lansoprazole 30 MG) feeding tube SCH (09:00)
[2019-12-18] MEDS ORDERED: ALBUT/IPRATROP 3MG/0.5MG NEB 3 ML VIAL INH SCH (09:00)
[2019-12-18] MEDS: CHECK FENTANYL PATCH PLACEMENT SCH ×2 (09:03→16:30)
[2019-12-18] MEDS ORDERED: Nursing to Pharmacy Communication ONE (14:26)
[2019-12-18] MEDS ORDERED: NUTREN ENTERAL FEEDING PEG SCH (16:30)
--- NOTE | 2019-12-18 16:59 | Hospitalist Progress Note ---
Date of Service December 18, 2019 Assessment & Plan (1) Hemoptysis: (2) Shortness of breath on exertion: (3) Presence of externally removable percutaneous endoscopic gastrostomy (PEG) tube: (4) Anxiety: (5) Oxygen dependent: (6) Lung cancer: (7) Cancer of supraglottis: (8) COPD (chronic obstructive pulmonary disease): (9) Depression: (10) Hypothyroidism: (11) Chronic low back pain: Admission and Anticipated Discharge Date Admission Date: December 18, 2019 Results & Data Results & Data ([facility]) Vital Signs (Past 12 Hours) Vital Signs Temp Pulse Pulse Resp BP Pulse Ox 12/18/19 16:12 36.7 C 96 H 18 151/81 H 95 12/18/19 15:15 90 18 94 12/18/19 14:22 96 12/18/19 12:10 36.7 C 80 18 151/79 H 93 12/18/19 11:24 88 18 94 12/18/19 08:53 36.6 C 63 17 105/62 94 12/18/19 07:40 109 H 12/18/19 07:38 108 H 18 94 12/18/19 05:16 100 H PG Care Time/CCT Total # of Minutes Spent Total Time Spent with Patient: Total time spent is greater than 50% in coordination of care (as documented) at patient's floor/unit and/or counseling patient: Coding Diagnoses Hemoptysis R04.2 Shortness of breath on exertion R06.02 Presence of externally removable percutaneous endoscopic gastrostomy (PEG) tube Z93.1 Anxiety F41.9 Oxygen dependent Z99.81 Lung cancer C34.90 Cancer of supraglottis C32.1 COPD (chronic obstructive pulmonary disease) J44.9 Depression F32.9 Hypothyroidism E03.9 Chronic low back pain M54.5; G89.29
--- NOTE | 2019-12-18 17:02 | Communication Note ---
Date of Service: December 18, 2019 Patient was seen and examined although admitted overnight on the same day therefore I will not be billing for this encounter. Patient feels much better than admission. Reports getting this way everytime he is weaned off steroids vs. stops antibiotics. He has been on multiple rounds of antibiotics since September. Most recently Augmentin. O/E - no longer wheezing. b/l base reduced air entry and crackles CT - concerning for progression of disease rather than PNA. A/P COPD exacerbation - Start on tapering dose of prednisone, likely will need to continue on 10mg until follow up with pulmonology, possibly for duration. Duonebs QID + PRN. Continue usual home inhalers. Procalcitonin negative. De- escalate antibiotics to just cover for COPD exacerbation rather than PNA - suspect low grade fevers more likely from underlying cancer vs. radiation pneumonitis. Lung adenocarcinoma - concerning for progression from CT today. Discussed this with patient. Unlikely cause of current illness. Will follow up with pulmonology and oncology on discharge. Discussed with Dr Vera. Hemoptysis - longstanding, improved. Takes both Advil and higher dose aspirin at home mainly for low grade fevers. Recommend not taking advil as much as possible, use acetaminophen instead. Reduce dose of aspirin to 81mg PO daily, if staying longer than tomorrow will start Lovenox DVT prophylaxis.
--- NOTE | 2019-12-18 22:30 | Electrocardiogram Report ---
Test Reason : Blood Pressure : / mmHG Vent. Rate : 113 BPM Atrial Rate : 113 BPM P-R Int : 170 ms QRS Dur : 084 ms QT Int : 340 ms P-R-T Axes : 004 -43 087 degrees QTc Int : 466 ms Sinus tachycardia Possible Left atrial enlargement Left axis deviation Abnormal ECG When compared with ECG of 11-MAY-2018 16:44, Questionable change in initial forces of Septal leads Confirmed by Yordy Reyes ([id number]) on 12/18/2019 10:31:00 PM Referred By: REFERRED SELF Confirmed By:Yordy Reyes
[2019-12-19] MEDS: OXYCODONE HCL SOLN 5 MG/5 ML UDC GT SCH ×3 (00:07→11:38)
[2019-12-19] MEDS: CHECK FENTANYL PATCH PLACEMENT SCH ×2 (00:08→07:41)
[2019-12-19] MEDS: LEVOTHYROXINE SODIUM 137 MCG TABLET PO SCH (05:51)
[2019-12-19] MEDS: ALBUT/IPRATROP 3MG/0.5MG NEB 3 ML VIAL INH SCH ×3 (07:10→15:37)
[2019-12-19] MEDS ORDERED: NUTREN ENTERAL FEEDING PEG SCH ×2 (07:30→11:30)
[2019-12-19] MEDS: FLUTICASONE/VILANTEROL 100/25MCG 14 PUFFS/INHALER INH SCH (07:43)
[2019-12-19] MEDS: LANSOPRAZOLE 30 MG SOLTAB GT SCH (07:45)
[2019-12-19] MEDS: GABAPENTIN 250 MG/5 ML 470 ML BTL GT SCH (07:45)
[2019-12-19] MEDS: LORATADINE 1 MG/1 ML GT SCH (07:45)
[2019-12-19] MEDS: POTASSIUM CHLORIDE 20 MEQ/15 ML UDC GT SCH (07:45)
[2019-12-19] MEDS: ACETAMINOPHEN SOLN 650 MG/20.3 ML UDC GT SCH (07:45)
[2019-12-19] MEDS: predniSONE 10 MG TABLET PO SCH (07:46)
[2019-12-19] MEDS: MIRTAZAPINE SOLTAB 15 MG PO SCH (07:46)
[2019-12-19] MEDS: MAGNESIUM OXIDE 400 MG TAB PEG SCH (07:46)
[2019-12-19] MEDS: SERTRALINE HCL 100 MG TABLET PEG SCH (07:46)
[2019-12-19] MEDS ORDERED: ENOXAPARIN INJ 40 MG/0.4 ML SYR SQ SCH (08:00)
[2019-12-19] MEDS ORDERED: ASPIRIN 81 MG CHEW GT SCH (09:00)
[2019-12-19] MEDS ORDERED: DOXYCYCLINE HYCLATE 100 MG CAP PO SCH (09:00)
[2019-12-19] MEDS ORDERED: fentaNYL 25 MCG/HR TDSY TD SCH (09:00)
[2019-12-19] MEDS ORDERED: AZITHROMYCIN 250 MG TAB PO ONE (10:30)
[2019-12-19 11:31] VITALS: PULSE 83; TEMP 97.7; O2SAT 97
--- NOTE | 2019-12-19 13:40 | Discharge Summary ---
Date of Service December 19, 2019 Admission HPI Per Admitting Provider Mr. Boss is a 69 yo M with a PMH of lung cancer s/p lobectomy, supraglottic cancer s/p chemotherapy and radiation, O2 dependent COPD, anxiety, PEG tube placement, and hypothyroidism who presented to the ED with complaints of generalized weakness, fatigue, increasing hematemesis and shortness of breath for the past week. Over the past week he has become increasingly short of breath while exerting himself and walking around his house. He requires 3LNC at baseline at all times and has become short of breath even with that support, noting that earlier this week his O2 sats dropped to ~79 after his cannula fell out for a few minutes. Shortly after this episode he started having episodes of bright red hemoptysis with cough. He notes this has gotten better as the week has progressed, and only 1/3 of his sputum content is blood now whereas it previously was 100% blood. He denies any coffee ground emesis or pain with these coughing spells. The volume of blood in the sputum also decreases as the day progresses. He notes that his temperature at home is fluctuant, but has not gone over 101 in the past week. He attests to feeling feverish, but denies any night sweats or weight loss. He has been experiencing some baseline nausea however he denies any vomiting, diarrhea or stomach pain. With his multiple cancer diagnoses, COPD, and cough for the past few months, he was put on Azithromycin MWF, and doxycycline 100 mg BID, as well as a recent steroid burst. He notes that when he runs out of his "routine antibiotics" as he has in the past week, he quickly decompensates and has problems with his breathing. Primary Care Provider: Chapito Milner, DO Admission Exam Per Admitting Provider Constitutional: + thin Eyes: PERRL, conjunctivae normal, anicteric sclerae ENMT: Mouth: no oral mucosal abnormality and no tongue abnormality Respiratory: good air movement to bases bilaterally, scattered rhonchi, no wheezes or crackles noted, periodic coughing while on 3LNC Cardiovascular: Tachycardic, regular rhythm, no murmurs, gallops or rubs appreciated. No peripheral edema, capillary refill 2-3 seconds. Gastrointestinal (Abdomen): Soft, nontender, nondistended, normal bowel sounds. PEG tube in place, no tenderness near insertion, no leakage, surrounding rash or skin irritation. Skin: no rashes, warm and dry Neurologic: Speech / Cognition: normal speech Motor/Sensory: + tremor bilateral resting tremor of hands Principal Diagnosis COPD exacerbation Suspected progression of underlying lung cancer Discharge Exam Constitutional + thin Eyes + anicteric sclerae; normal pupil size Respiratory normal respiratory effort Auscultation: lungs clear to auscultation bilaterally; no crackles and no wheezes Cardiovascular Rate/Rhythm: regular rate and regular rhythm Gastrointestinal (Abdomen) Percussion/Palpation: abdomen soft; abdomen nontender, no guarding and abdomen not rigid PEG tube in place without surrounding erythema Skin no rashes, warm and dry Neurologic moves all extremities and awake; not confused Psychiatric Orientation: alert and oriented x 3 Discharge Data Allergies Allergy/AdvReac Type Severity Reaction Status Date / Time NSAIDS (Non-Steroidal AdvReac Mild upset Verified 12/20/19 14:46 Anti-Inflamma stomach Consultations 12/18/19 01:02 ED Decision to Admit Stat Ordered Studies 12/18/19 03:57 CT chest wo con Urgent Hospital Course (1) Hemoptysis: Luis Boss is a 69 year old male admitted to [facility] from December 17 to 2019 due to shortness of breath, hemoptysis, generalized weakness and wheezing. He was diagnosed with COPD exacerbation. He responded quickly for steroids and duonebs. Prolonged prednisone taper prescribed given recurrent exacerbation of this. COVID-19 testing was negative. He should take his azithromycin daily for the next 4 days then go back to his usual schedule. Hemoptysis - he was advised to reduce his aspirin to 81mg PO daily and stop NSAIDs. Resolved during his admission. CT is concerning for progression of his underlying lung cancer, this was discussed with the patient and pulmonology (Dr Vera) and patient is to call his pig caster and oncologist to arrange follow up for this. (2) Shortness of breath on exertion: (3) Presence of externally removable percutaneous endoscopic gastrostomy (PEG) tube: (4) Anxiety: (5) Oxygen dependent: (6) Lung cancer: (7) Cancer of supraglottis: (8) COPD (chronic obstructive pulmonary disease): (9) Depression: (10) Hypothyroidism: (11) Chronic low back pain: Total Time Total Time Spent Total Time Spent (In Minutes): 35 Total Time Includes: Examination of the Patient, Discharge Planning and Medication Reconciliation Discharge Plan Discharge Items Patient Disposition: Home - Self-Care Reason For Visit: FATIGUE, SOB, FEVERS Discharge Diagnosis: COPD exacerbation Suspected progression of underlying lung cancer Condition on Discharge: Good Activity: Resume your previous activity Non-emergency contact: [employer]ian Call non-emergency contact if: you have any medication questions and your symptoms worsen Follow-up/Referrals: Joshua Olea MD [Physician] - 12/26/19 10:30 am (Please, follow up at [facility] Pulmonology Office with Dr. Olea on WednesdayDecember 25 at 10:30 am. *If you need to change this appointment, call the office at [phone].) Chapito Milner, [Primary Care Provider] - Diet: Nothing by Mouth Addtl Attending Provider Instructions: You were admitted to [facility] from December 17 to 2019 due to shortness of breath, hemoptysis, generalized weakness and wheezing. You were diagnosed with COPD exacerbation. Treated with steroids and nebulizers in addition to a treatment course of your usual azithromycin. Recommend continuing on prednisone taper as prescribed. Recommend also taking your usual azithromycin dose daily for the next 4 days then going back to your usual schedule. Regarding your hemoptysis (coughing up blood). Recommend reducing your aspirin to 81mg daily and discontinuing naproxen and all other over the counter pain medications if possible to control your pain without these. Your CT is concerning for progression of your underlying lung cancer and recommend following up with your pig caster regarding this (see appointment above). Kind regards, Dr Bari Danielle Pending Studies at Discharge: No Stand-Alone Forms: My [facility] Monstrous, Smoking Cessation Medications and DC Order Prescriptions: New aspirin 81 mg Tablet,Chewable 81 mg G-tube QAM Qty: 90 RF: 0 prednisone 10 mg tablet See Rx Instructions .ROUTE .COMPLEX Qty: 26 RF: 0 azithromycin 500 mg tablet 500 mg feeding tube DAILY 4 Days Qty: 4 RF: 0 Continued Symbicort 160-4.5 mcg/actuation HFA aerosol inhaler 2 puffs INH BID RF: 0 acetaminophen [Tylenol Extra Strength] 500 mg tablet 500 mg feeding tube DAILY RF: 0 Benefiber Sugar Free (dextrin) 3 gram/3.8 gram powder 1.5 gm PO DAILY PRN (Reason: constipation) RF: 0 loperamide [Imodium A-D] 1 mg/7.5 mL liquid 2 mg feeding tube Q4H PRN (Reason: Diarrhea) RF: 0 sertraline 100 mg tablet 100 mg feeding tube DAILY RF: 0 lansoprazole 30 mg capsule,delayed release(DR/EC) 30 mg feeding tube DAILY RF: 0 levothyroxine 137 mcg capsule 137 mcg feeding tube DAILY RF: 0 (DME) Oxygen Home Liters Per Minute See Dose Instructions .ROUTE .MEDSUPPLY Qty: 1 RF: 0 oxycodone 5 mg capsule 10 mg feeding tube Q6 RF: 0 magnesium oxide 420 mg Tablet 420 mg Feeding Tube DAILY RF: 0 ipratropium-albuterol 0.5 mg-3 mg(2.5 mg base)/3 mL Solution For Nebulization 3 ml INHALATION QID RF: 0 potassium chloride 40 mEq/15 mL Liquid 40 meq Feeding Tube DAILY RF: 0 fentanyl 25 mcg/hr Patch 72 Hour 1 patch TRANSDERMAL Q72H RF: 0 loratadine 10 mg Tablet 10 mg Feeding Tube DAILY RF: 0 ipratropium-albuterol 20-100 mcg/actuation Mist 1 puff INHALATION QID RF: 0 Nutren 2.0 0.08 gram-2 kcal/mL Liquid 6 can Feeding Tube DAILY RF: 0 buspirone 5 mg tablet 5 mg Feeding Tube BID RF: 0 gabapentin 300 mg capsule 300 mg Feeding Tube BID RF: 0 doxycycline hyclate 100 mg capsule 100 mg feeding tube BID RF: 0 azithromycin [Zithromax] 250 mg tablet 500 mg feeding tube UD RF: 0 Discontinued naproxen sodium [Aleve] 220 mg capsule 220 mg feeding tube DAILY RF: 0 aspirin 325 mg tablet 325 mg feeding tube DAILY RF: 0 No Action mirtazapine 45 mg tablet 45 mg feeding tube DAILY Qty: 30 RF: 2 Discharge Orders: Discharge Order (Routine); Ordered 12/19/19 Ordered By: Bari Danielle Admission Data Admit Date/Time: 12/18/19 02:38 Attending Provider: Bari Danielle Admit Provider: Makenzie Kelsey Primary Care Provider: Chapito Milner Other Providers: Amanda Masters Other Interventions: Discharge Summary Assessment (RN) Last Done: 12/19/19 14:25 DC Date/Time DO NOT enter until pt leaves facility: 12/19/19 15:57 Coding Level of Care Code D/C Day Management >30 mins Diagnoses Hemoptysis R04.2 Shortness of breath on exertion R06.02 Presence of externally removable percutaneous endoscopic gastrostomy (PEG) tube Z93.1 Anxiety F41.9 Oxygen dependent Z99.81 Lung cancer C34.90 Cancer of supraglottis C32.1 COPD (chronic obstructive pulmonary disease) J44.9 Depression F32.9 Hypothyroidism E03.9 Chronic low back pain M54.5; G89.29
[2019-12-19 14:26] VITALS: BP 169/90
[2019-12-20] MEDS ORDERED: fentaNYL 25 MCG/HR TDSY TD SCH (09:00)
== END 2019-12-19 15:57 | disposition home or self-care (01) | DRG 191 ==
LOC: ED 23:16 → 2N 12-18 02:38 → SUATTDRO 12-18 02:38 → 2N 12-18 03:05

== ENCOUNTER 2020-01-09 14:01 | Inpatient (IN) ==
[2020-01-09] MEDS ORDERED: MoRPHine SULFATE 4 MG/ML 1 ML CARP\\VIAL IV PRN (15:54)
[2020-01-09] MEDS ORDERED: ONDANSETRON INJ 2 MG/ML 2 ML VIAL IV STA (15:54)
[2020-01-09] MEDS ORDERED: SODIUM CHLORIDE 0.9% 1000ML 1,000 ML IV SCH ×2 (16:00→21:02)
--- NOTE | 2020-01-09 16:00 | Emergency Department Note ---
Impression & Plan Epigastric abdominal pain, Vomiting, Gastric outlet obstruction, Acute dehydration ED Provider Note NAME: BARBARA CASTRO AGE: 69 SEX: M : 1950 ARRIVES VIA: Walk-In INFORMANT: [Patient] ED PROVIDER(S): [Alex Vila MD] CHIEF COMPLAINT: Vomiting HISTORY OF PRESENT ILLNESS: The patient is a 69-year-old male presents with 2 days of vomiting. He started vomiting yesterday morning. He also developed diffuse abdominal pain that he rates as a 5/10. The pain is constant and only feels somewhat better when he vomits. There is no radiation of pain. He had a bout or 2 of diarrhea yesterday but this quickly resolved. Today, he again is vomiting, no diarrhea. His abdominal pain is somewhat better although still present. There has been no fever although he has been hot and cold. No urinary complaints. No shortness of breath, no cough or cold or congestion. The patient states that he did vomit up his medications. The patient uses a PEG tube for feeding. He states that despite the PEG tube, he is vomiting his stomach contents orally. No bad food eaten. The patient states that he is quite thirsty and feels he may be dehydrated. REVIEW OF SYSTEMS: See HPI for pertinent positives and negatives. A total of ten systems were reviewed and were otherwise negative. PMHx/PSHx: See Below SOCIAL HISTORY: See Below. PHYSICAL EXAM: GENERAL: Patient is in no acute distress. HEENT: No acute trauma, normocephalic atraumatic, mucous membranes dry, no nasal congestion, no scleral icterus. NECK: No stridor, no adenopathy, no meningismus, trachea is midline. LUNGS: Clear to auscultation bilaterally, no wheeze, no rhonchi, breath sounds e qual. HEART: Without murmurs gallops or rubs, regular rate and rhythm. ABDOMEN: Soft, diffusely mildly tender. There is no peritonitis. There is a feeding tube in the left upper quadrant. No obvious hernia. EXTREMITIES: No cyanosis or edema, full range of motion of all the joints without pain or difficulty, no signs for acute trauma. NEUROLOGIC: Oriented x 3, no acute motor or sensory deficits, no focal weakness. SKIN: No rash, no jaundice, no diaphoresis. DIFFERENTIAL DIAGNOSIS: Infection, dehydration, metabolic abnormality, hypo/hyperglycemia, electrolyte disturbance, bowel obstruction, viral illness, foodborne illness, anemia, hypoxia, cardiac sources, intracerebral event, toxicologic, neurologic, as well as other pathologies. EMERGENCY DEPARTMENT COURSE/PROCEDURES: ECG: Indication was epigastric abdominal pain. The ECG shows a normal sinus rhythm with a rate of 81. There is no ST elevation. QTc is 462. No PVCs. Continuous Cardiac Monitoring: An order was placed for continuous cardiac monitoring. The monitor shows a rate of 73 with normal sinus rhythm. MEDICAL DECISION MAKING: There is no leukocytosis. The patient does have a mild anemia. The anemia is baseline when looking back at previous testing. Potassium slightly low at 3.3. No kidney failure. No worrisome liver enzyme elevation. No evidence for pancreatitis. EKG shows a sinus rhythm, no acute ischemia. Cardiac enzyme testing x1 is not consistent with acute cardiac injury. Urinalysis does not sh ow any evidence for infection. Chest x-ray does not show free air or pneumothorax. Some chronic findings were seen consistent with his diagnosed malignancy. Abdominal and pelvis CT shows evidence for potential gastric outlet obstruction caused by his feeding tube. There were some findings of potential enteritis also seen. No evidence for free air or bowel rupture. The patient received IV morphine for pain, IV Zofran for nausea. He was given IV saline for hydration. He received IV potassium for the lower potassium value. I did speak to GI about the findings on CT. They suggested trying to pull the feeding tube back. I did attempt this but was unsuccessful. The feeding tube seemed caught in position. I spoke again with GI, they recommended decompressing the stomach by aspirating the feeding tube. This was done by our nursing staff and a significant amount of stomach contents was removed. Patient has not vomited since being here in the ED. He is going require a hospital stay for hydration. He will likely have his feeding tube replaced tomorrow by GI. I spoke to the patient and counter caser. The on-call hospitalist was consulted. 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 Radiation completed 02/28/2010 received 7200 cGy Finding of asymmetry of larynx on the right. 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 Radiation completed 02/28/2010 received 7200 cGy Finding of asymmetry of larynx on the right. Plan for laryngoscopy and biopsy 01/27/2017 " Cervical stenosis of spinal canal (Resolved) Chronic low back pain (Chronic) "[facility]" COPD (chronic obstructive pulmonary disease) (Chronic) "is on home oxygen" Depression Hypothyroidism (Chronic) Insomnia Lung cancer (Chronic 10/04/17) "Status post bronchoscopy and biopsy 06/03/2016 right upper lobectomy and lymph node dissection 06/25/2016 Squamous cell carcinoma Stage pT1b pN0M0 Development of a left lower lobe pulmonary nodule Status post bronchoscopy and biopsy pathology nondiagnostic 06/25/2016 Status post SBRT completed 02/05/2017. 5 fractions were given for a total of 5000 cGy. Recheck PET/CT October 04, 2017 revealing right lower lobe nodule with FDG avidity Status post bronchoscopy and biopsies October 28, 2017 Node biopsies negative, bronchial washings negative Status post lung nodule clinic discussion and consensus for stereotactic radiation therapy Status post completion of stereotactic body radiation therapy November 26, 2017. He received 5000 cGy" On 11/05/17 11:37 Sirisha You wrote "Status post bronchoscopy and biopsy 06/03/2016 right upper lobectomy and lymph node dissection 06/25/2016 Squamous cell carcinoma Stage pT1b pN0M0 Development of a left lower lobe pulmonary nodule Status post bronchoscopy and biopsy pathology nondiagnostic 06/25/2016 Status post SBRT completed 02/05/2017. 5 fractions were given for a total of 5000 cGy. Recheck PET/CT October 04, 2017 revealing right lower lobe nodule with FDG avidity Status post bronchoscopy and biopsies October 28, 2017 Node biopsies negative, bronchial washings negative Status post lung nodule clinic discussion and consensus for stereotactic radiation therapy" On 02/18/17 10:09 Sirisha You wrote "Status post bronchoscopy and biopsy 06/03/2016 right upper lobectomy and lymph node dissection 06/25/2016 Squamous cell carcinoma Stage pT1b pN0M0 Development of a left lower lobe pulmonary nodule Status post bronchoscopy and biopsy pathology nondiagnostic 06/25/2016 Status post SBRT completed 02/05/2017. 5 fractions were given for a total of 5000 cGy." On 01/07/17 09:52 Sirisha You wrote "Status post bronchoscopy and biopsy 06/03/2016 right upper lobectomy and lymph node dissection 06/25/2016 Squamous cell carcinoma Stage pT1b pN0M0 Development of a left lower lobe pulmonary nodule Status post bronchoscopy and biopsy pathology nondiagnostic 06/25/2016" On 01/07/17 09:51 Sirisha You wrote "Status post bronchoscopy and biopsy 06/03/2016 right upper lobectomy and lymph node dissection 06/25/2016 Squamous cell carcinoma Stage pT1b pN0M0 Development of a left lower lobe pulmonary nodule" Oxygen dependent Presence of externally removable percutaneous endoscopic gastrostomy (PEG) tube (~2019) Surgical History H/O cervical spine surgery (Acute) H/O neck surgery (Acute) right side Percutaneous endoscopic gastrostomy status (Acute) S/P lobectomy of lung (Resolved) Family History Other No pertinent family history Denies family history of Ovarian cancer Prostate cancer Breast cancer Lung cancer Colorectal cancer Social History Preferred Language: Romanian Communication Ability: Effective Visual Impairment: Limited Hearing Ability: Normal Rn Pain Management Required: No Beliefs That Will Affect Care: None marital status: Single Current Living Situation: Family and Significant Other current occupational status: retired Feels Safe at Home: Yes Smoking Status: Former smoker Do You Dip or Chew Tobacco: No ; Second Hand Exposure: No ; Hx Alcohol Use: No Hx Substance Use: No caffeine: No Dental Care, Regularly: Yes Physical Activity Frequency: Does not Exercise Seatbelt Use: always Sunscreen Use: Yes Allergies Allergies Allergy/AdvReac Type Severity Reaction Status Date / Time NSAIDS (Non-Steroidal AdvReac Mild upset Verified 01/09/20 18:57 Anti-Inflamma stomach Home Meds Home Medications Medication Instructions Recorded Confirmed Nutren 2.0 2 can FEEDING TUBE BID 10/03/18 06/02/20 fentanyl 1 patch TRANSDERMAL Q72H 05/11/18 01/09/20 ipratropium-albuterol 1 puff INHALATION QID 05/11/18 01/09/20 ipratropium-albuterol 3 ml INHALATION QID 05/11/18 01/09/20 loratadine 10 mg FEEDING TUBE DAILY PRN 05/11/18 01/09/20 magnesium oxide 420 mg FEEDING TUBE DAILY 05/11/18 01/09/20 potassium chloride 40 meq FEEDING TUBE DAILY 05/11/18 01/09/20 budesonide-formoterol HFA 160 2 puffs INH BID 02/15/19 01/09/20 mcg-4.5 mcg/actuation aerosol inhaler buspirone 5 mg tablet 5 mg FEEDING TUBE BID 02/15/19 01/09/20 loperamide 1 mg/7.5 mL oral liquid 2 mg FEEDING TUBE Q4H PRN 02/15/19 01/09/20 wheat dextrin 3 gram/3.8 gram oral 1.5 gm PO DAILY PRN gm 02/15/19 01/09/20 powder lansoprazole 30 mg capsule,delayed 30 mg FEEDING TUBE DAILY 05/19/19 01/09/20 release levothyroxine 137 mcg capsule 137 mcg FEEDING TUBE DAILY 05/19/19 01/09/20 sertraline 100 mg tablet 100 mg FEEDING TUBE DAILY tab 05/19/19 01/09/20 gabapentin 300 mg capsule 300 mg FEEDING TUBE BID cap 07/10/19 01/09/20 oxycodone 5 mg capsule 10 mg FEEDING TUBE Q6 cap 07/10/19 01/09/20 azithromycin [Zithromax] 500 mg FEEDING TUBE UD 12/18/19 01/09/20 Previous Rx's Medication Instructions Recorded Oxygen Home #1 ea 05/19/19 aspirin 81 mg G-TUBE QAM #90 tab 12/19/19 mirtazapine 45 mg tablet 45 mg FEEDING TUBE DAILY #30 tab 12/20/19 Results & Data (ED) Vital Signs Vital Signs - 24 hr 01/09/20 14:26 01/09/20 16:15 01/09/20 16:16 Temperature 36.9 C Temperature Source Oral Pulse Rate 85 76 Pulse Rate [Finger] Pulse Rate from SpO2 Sensor 77 Respiratory Rate 16 16 Blood Pressure 159/85 H Blood Pressure [Left Arm] Blood Pressure Mean 109 Blood Pressure Mean [Left Arm] Pulse Oximetry 100 99 98 Oxygen Delivery Method Room Air Nasal Cannula Oxygen Flow Rate Sepsis Recent Fever Within 48 Hours No Sepsis Action Taken by Nursing No Action Required 01/09/20 16:30 01/09/20 17:00 01/09/20 17:30 Temperature Temperature Source Pulse Rate 78 80 78 Pulse Rate [Finger] Pulse Rate from SpO2 Sensor 78 78 79 Respiratory Rate 18 20 19 Blood Pressure 155/83 H Blood Pressure [Left Arm] Blood Pressure Mean 114 Blood Pressure Mean [Left Arm] Pulse Oximetry 100 98 100 Oxygen Delivery Method Oxygen Flow Rate Sepsis Recent Fever Within 48 Hours Sepsis Action Taken by Nursing 01/09/20 17:31 01/09/20 18:00 01/09/20 18:30 Temperature Temperature Source Pulse Rate 72 77 Pulse Rate [Finger] 79 Pulse Rate from SpO2 Sensor 72 73 Respiratory Rate 17 16 16 Blood Pressure Blood Pressure [Left Arm] 155/83 H Blood Pressure Mean Blood Pressure Mean [Left Arm] 107 Pulse Oximetry 100 100 100 Oxygen Delivery Method Nasal Cannula Oxygen Flow Rate 3 Sepsis Recent Fever Within 48 Hours Sepsis Action Taken by Nursing 01/09/20 19:00 01/09/20 19:30 01/09/20 20:00 Temperature Temperature Source Pulse Rate 74 77 77 Pulse Rate [Finger] Pulse Rate from SpO2 Sensor 74 77 76 Respiratory Rate 18 19 19 Blood Pressure 138/69 Blood Pressure [Left Arm] Blood Pressure Mean 92 Blood Pressure Mean [Left Arm] Pulse Oximetry 100 99 97 Oxygen Delivery Method Oxygen Flow Rate Sepsis Recent Fever Within 48 Hours Sepsis Action Taken by [facility] Medications Current Medication List: was personally reviewed by me Laboratory Data Attestation: I reviewed the patient's lab results. Result diagrams: 01/09/20 16:10 01/09/20 16:10 Lab Results 01/09/20 01/09/20 01/09/20 Range/Units 16:10 16:10 18:25 WBC 8.75 (4.8-10.8) K/uL RBC 4.07 L (4.7-6.1) M/uL Hgb 11.8 L (14.0-18.0) g/dL Hct 36.7 L (42-52) % MCV 90.2 (80-100) fL MCH 29.0 (25-34) pg MCHC 32.2 (32-36) g/dL RDW Std Deviation 46.1 (36.4-46.3) fL RDW Coeff of Stephanie 14.2 (11.5-14.5) % Plt Count 311 (130-400) K/uL MPV 9.0 (7.4-10.4) fL Immature Gran % (Auto) 0.2 % Neut % (Auto) 89.6 % Lymph % (Auto) 5.7 % Barren % (Auto) 4.2 % Eos % (Auto) 0.1 % Baso % (Auto) 0.2 % Immature Gran # (Auto) 0.02 (0.00-0.02) K/uL Neut # (Auto) 7.83 H (1.4-6.5) K/uL Lymph # (Auto) 0.50 L (1.2-3.4) K/uL Barren # (Auto) 0.37 (0.11-0.59) K/uL Eos # (Auto) 0.01 (0-0.5) K/uL Baso # (Auto) 0.02 (0-0.2) K/uL Sodium 134 L (136-145) mmol/L Potassium 3.3 L (3.5-5.1) mmol/L Chloride 98 (98-107) mmol/L Carbon Dioxide 32 (21-32) mmol/L Anion Gap 4.0 (3-11) BUN 14 (7-18) mg/dl Creatinine 0.61 (0.6-1.4) mg/dl Est Cr Clr Drug Dosing 118.0 ml/min Est GFR ( Amer) 119.8 Est GFR (Non-Af Amer) 103.3 BUN/Creatinine Ratio 22.4 H (10-20) Glucose 138 H (70-99) mg/dl Calcium 9.4 (8.5-10.1) mg/dl Magnesium 2.4 (1.8-2.4) mg/dl Total Bilirubin 0.4 (0.2-1) mg/dl AST 14 L (15-37) U/L ALT 19 (12-78) U/L Alkaline Phosphatase 82 (45-117) U/L Troponin I < 0.015 (0-0.045) ng/ml Total Protein 7.5 (6.4-8.2) gm/dl Albumin 3.8 (3.4-5.0) gm/dl Globulin 3.7 (2.5-4.0) gm/dl Albumin/Globulin Ratio 1.0 (0.9-2) Lipase 107 (73-393) U/L Urine Color Yellow Urine Appearance Clear (Clear) Urine pH 7.5 (4.5-7.5) Ur Specific [place] > 1.045 H (1.000-1.030) Urine Protein Negative (Negative) Urine Glucose (UA) Negative (Negative) Urine Ketones 1+ H (Negative) Urine Blood Negative (Negative) Urine Nitrite Negative (Negative) Urine Bilirubin Negative (Negative) Urine Urobilinogen Negative (Negative) Ur Leukocyte Esterase Negative (Negative) Urine WBC (Auto) 0 (0-5) /hpf Urine RBC (Auto) 0-4 (0-4) /hpf U Hyaline Cast (Auto) 0 (0-5) /lpf U Epithel Cells (Auto) 5-10 H (0-5) /lpf Urine Bacteria (Auto) Negative (Negative) Administered Medications Potassium Chloride ([place] / Wtr) 10 meq in 100 mls @ 100 mls/hr IV Q1H JOCELYN Stop: 01/10/20 00:29 Last Admin: 01/09/20 22:20 Dose: 100 mls/hr Documented by: [id number] Infusion: 01/09/20 22:20 Dose: 100 mls/hr Documented by: [id number] Admin: 01/09/20 21:25 Dose: 100 mls/hr Documented by: [id number] Sodium Chloride (Nss 1000ml) 1,000 mls @ 80 mls/hr IV .[id number] JOCELYN Stop: 01/10/20 09:31 Last Admin: 01/09/20 21:25 Dose: 80 mls/hr Documented by: [id number] Morphine Sulfate (Morphine Sulfate) 4 mg IV Q4H PRN PRN Reason: Pain Stop: 01/23/20 21:01 Last Admin: 01/09/20 20:45 Dose: 4 mg Documented by: [id number] Discontinued Medications Sodium Chloride (Nss 1000ml) 1,000 mls @ 999 mls/hr IV .Q1H1M JOCELYN Stop: 01/09/20 17:00 Last Infusion: 06/02/20 17:33 Dose: 0 mls/hr Documented by: [id number] Admin: 01/09/20 16:24 Dose: 999 mls/hr Documented by: [id number] Potassium Chloride ([place] / Wtr) 10 meq in 100 mls @ 100 mls/hr IV ONE ONE Stop: 01/09/20 18:03 Last Infusion: 01/09/20 18:35 Dose: 0 mls/hr Documented by: [id number] Admin: 01/09/20 17:30 Dose: 100 mls/hr Documented by: [id number] Sodium Chloride (Nss 1000ml) 500 mls @ 999 mls/hr IV .Q31M ONE Stop: 01/09/20 18:35 Last Infusion: 01/09/20 20:31 Dose: 0 mls/hr Documented by: [id number] Admin: 01/09/20 18:20 Dose: 999 mls/hr Documented by: [id number] Ioversol (Optiray 320 100ml) 93 ml IV ONCE PRN PRN Reason: Interaction Checking Stop: 01/13/20 17:17 Last Admin: 01/09/20 17:19 Dose: 93 ml Documented by: [id number] Morphine Sulfate (Morphine Sulfate) 4 mg IV Q20M PRN PRN Reason: Pain Stop: 01/23/20 15:53 Last Admin: 01/09/20 16:20 Dose: 4 mg Documented by: [id number] Morphine Sulfate (Morphine Sulfate) 4 mg IV NOW STA Stop: 01/09/20 21:03 Last Admin: 01/09/20 22:10 Dose: Not Given Documented by: [id number] Ondansetron HCl (Zofran) 4 mg IV NOW STA Stop: 01/09/20 15:55 Last Admin: 01/09/20 16:20 Dose: 4 mg Documented by: [id number] Imaging Data Radiologist's Impression: XR chest 1V portable CLINICAL HISTORY: weakness COMPARISON STUDY: 12/18/2019 FINDINGS: The cardiac and mediastinal contours remain stable. Postsurgical changes are again evident on the right. There is a persistent nodular opacity at the left lung base measuring 3 cm. There are associated interstitial opacities. Underlying emphysema is suspected.[ IMPRESSION: 1. No significant change from the prior study 2. Postsurgical changes on the right 3. Persistent 3 cm nodular opacity at the left lung base ABDOMEN AND PELVIS CT WITH IV CONTRAST CT DOSE: 313.03 mGy.cm HISTORY: Vomiting. TECHNIQUE: Multiaxial CT images of the abdomen and pelvis were performed following the use of intravenous contrast. A dose lowering technique was utilized adhering to the principles of ALARA. COMPARISON STUDY: PET scan 01/16/2019. Chest CT 12/18/2019. FINDINGS: Trace right pleural effusion, unchanged. Emphysema. Partially visualized left lower lobe consolidation remains unchanged. This is better appreciated on the recent chest CT. Decrease in size in a 5 mm nodule within the left lower lobe on image 9. No pneumoperitoneum. No pneumatosis. Old, healed left pubic ring fracture. No suspicious lytic are blastic osseous lesions. Old, healed right rib fractures. The liver, gallbladder, pancreas, spleen, adrenal glands, left kidney are unremarkable. No hydronephrosis. There is a 4 mm hypodense lesion within the lower pole the right kidney. This is technically too small to characterize. There is also an exophytic 1.7 x 1.5 cm intermediate density lesion within the right kidney on image 173. This does not represent a simple cyst. This favors a hyperdense cyst but could represent a renal mass and is incompletely characterized on this single phase study. Moderate calcified plaque within the normal caliber abdominal aorta. The main portal vein is patent. No retroperitoneal lymphadenopathy. Fluid-filled and mildly distended stomach. The gastrostomy tube bulb is located within the duodenal bulb. This previously was located within the gastric antrum. Therefore, this could result in a low-grade partial gastric outlet obstruction. Multiple nondilated fluid- filled fluid loops of small bowel are noted. Mild thickening of the bladder. This may be due to chronic outlet obstruction from the mildly enlarged prostate gland. The colon is decompressed. Colonic diverticulosis. No evidence for diverticulitis. No bowel wall thickening. IMPRESSION: 1. Fluid-filled and mildly distended stomach. The gastrostomy tube bulb is now located within the duodenal bulb. This was previously located in the gastric antrum. Therefore, this could result in a low-grade partial gastric outlet obstruction. 2. Fluid-filled nondilated small bowel. Therefore, these findings could also represent a gastroenteritis. Clinical correlation recommended. 3. Colonic diverticulosis. No evidence for diverticulitis. 4. Trace right pleural effusion, unchanged. 5. No change in the left lower lobe consolidation. This is better appreciated on the recent chest CT. 6. Decrease in size in a 5 mm nodule within the left lower lobe. 7. An exophytic 1.7 x 1.5 cm intermediate density lesion within the right kidney. This does not represent a simple cyst but favors a hyperdense cyst. However, follow-up nonemergent renal ultrasound recommended to exclude the possibility of a solid renal mass. Blood Pressure Blood Pressure Findings: Elevated blood pressure Blood Pressure Disposition: further management by hospitalist Discharge Plan Visit Data *Final* Discharge Date/Time: 01/09/20 20:32 Chief Complaint: Vomiting Stated Complaint: VOMITING,FEEDINGS THROUGH PEG TUBE SINCE YESTERDAY ED Provider: Alex Vila Discharge Problem: Epigastric abdominal pain, Vomiting, Gastric outlet obstruction, Acute dehydration Patient Disposition: Admitted As Inpatient Condition: Fair Discharge Instructions Interventions: ED Discharge Assessment Last Done: 01/09/20 20:32 Discharge Problem: Vomiting Qualifiers: Vomiting type: unspecified Vomiting Intractability: non-intractable Nausea presence: with nausea Qualified Code(s): R11.2 - Nausea with vomiting, unspecified
--- NOTE | 2020-01-09 16:13 | XRay Report ---
XR chest 1V portable CLINICAL HISTORY: weakness COMPARISON STUDY: 12/18/2019 FINDINGS: The cardiac and mediastinal contours remain stable. Postsurgical changes are again evident on the right. There is a persistent nodular opacity at the left lung base measuring 3 cm. There are a ssociated interstitial opacities. Underlying emphysema is suspected.[ IMPRESSION: 1. No significant change from the prior study 2. Postsurgical changes on the right 3. Persistent 3 cm nodular opacity at the left lung base ACT 112: Negative or not required by law. Electronically signed by: Gentry Tsang M.D. 01/09/2020 4:11 PM
[2020-01-09 16:27] LABS: Basophils # (auto) 0.02 K/uL (0-0.2); Basophils % (auto) 0.2 %; Eosinophils # (auto) 0.01 K/uL (0-0.5); Eosinophils % (auto) 0.1 %; Hematocrit (blood only) 36.7 % (42-52); Hemoglobin 11.8 g/dL (14.0-18.0); Immature Granulocytes # (auto) 0.02 K/uL (0.00-0.02); Immature Granulocytes % (auto) 0.2 %; Lymphocytes % (auto) 5.7 %; Mean Corpuscular Hgb Conc 32.2 g/dL (32-36); Mean Corpuscular Volume 90.2 fL (80-100); Monocytes # (auto) 0.37 K/uL (0.11-0.59); Monocytes % (auto) 4.2 %; Neutrophils # (auto) 7.83 K/uL (1.4-6.5); Neutrophils % (auto) 89.6 %; Platelet Count 311 K/uL (130-400); RDW Coefficient of Variation 14.2 % (11.5-14.5); RDW Standard Deviation 46.1 fL (36.4-46.3); Red Blood Count 4.07 M/uL (4.7-6.1); White Blood Count 8.75 K/uL (4.8-10.8)
[2020-01-09 16:44] LABS: Alanine Aminotransferase 19 U/L (12-78); Albumin Level 3.8 gm/dl (3.4-5.0); Aspartate Aminotransferase 14 U/L (15-37); BUN Creatinine Ratio 22.4 (10-20); Blood Urea Nitrogen 14 mg/dl (7-18); Calcium 9.4 mg/dl (8.5-10.1); Carbon Dioxide 32 mmol/L (21-32); Chloride 98 mmol/L (98-107); Est GFR (African American) 119.8; Est GFR (Non-African American) 103.3; Glucose 138 mg/dl (70-99); Lipase 107 U/L (73-393); Magnesium 2.4 mg/dl (1.8-2.4); Potassium 3.3 mmol/L (3.5-5.1); Sodium 134 mmol/L (136-145)
[2020-01-09 16:49] LABS: Alkaline Phosphatase 82 U/L (45-117); Bilirubin,Total 0.4 mg/dl (0.2-1); Globulin 3.7 gm/dl (2.5-4.0); Total Protein 7.5 gm/dl (6.4-8.2); Troponin I < 0.015 ng/ml (0-0.045)
[2020-01-09] MEDS ORDERED: POTASSIUM CHLORIDE / WTR 10 MEQ/100 ML PLCT IV ONE (17:04)
[2020-01-09] MEDS ORDERED: IOVERSOL 100ml IV PRN (17:18)
--- NOTE | 2020-01-09 17:40 | CT Scan Report ---
ABDOMEN AND PELVIS CT WITH IV CONTRAST CT DOSE: 313.03 mGy.cm HISTORY: Vomiting. TECHNIQUE: Multiaxial CT images of the abdomen and pelvis were performed following the use of intrave nous contrast. A dose lowering technique was utilized adhering to the principles of ALARA. COMPARISON STUDY: PET scan 01/16/2019. Chest CT 12/18/2019. FINDINGS: Trace right pleural effusion, unchanged. Emphysema. Partially visualized left lower lobe co nsolidation remains unchanged. This is better appreciated on the recent chest CT. Decrease in size in a 5 mm nodule within the left lower lobe on image 9. No pneumoperitoneum. No pneumatosis. Old, heale d left pubic ring fracture. No suspicious lytic are blastic osseous lesions. Old, healed right rib fr actures. The liver, gallbladder, pancreas, spleen, adrenal glands, left kidney are unremarkable. No h ydronephrosis. There is a 4 mm hypodense lesion within the lower pole the right kidney. This is techn ically too small to characterize. There is also an exophytic 1.7 x 1.5 cm intermediate density lesion within the right kidney on image 173. This does not represent a simple cyst. This favors a hyperdens e cyst but could represent a renal mass and is incompletely characterized on this single phase study. Moderate calcified plaque within the normal caliber abdominal aorta. The main portal vein is patent. No retroperitoneal lymphadenopathy. Fluid-filled and mildly distended stomach. The gastrostomy tube bulb is located within the duodenal bulb. This previously was located within the gastric antrum. Ther efore, this could result in a low-grade partial gastric outlet obstruction. Multiple nondilated fluid -filled fluid loops of small bowel are noted. Mild thickening of the bladder. This may be due to lunchroom supervisor bacilio outlet obstruction from the mildly enlarged prostate gland. The colon is decompressed. Colonic di verticulosis. No evidence for diverticulitis. No bowel wall thickening. IMPRESSION: 1. Fluid-filled and mildly distended stomach. The gastrostomy tube bulb is now located within the duo denal bulb. This was previously located in the gastric antrum. Therefore, this could result in a low- grade partial gastric outlet obstruction. 2. Fluid-filled nondilated small bowel. Therefore, these findings could also represent a gastroenteri tis. Clinical correlation recommended. 3. Colonic diverticulosis. No evidence for diverticulitis. 4. Trace right pleural effusion, unchanged. 5. No change in the left lower lobe consolidation. This is better appreciated on the recent chest CT. 6. Decrease in size in a 5 mm nodule within the left lower lobe. 7. An exophytic 1.7 x 1.5 cm intermediate density lesion within the right kidney. This does not repre sent a simple cyst but favors a hyperdense cyst. However, follow-up nonemergent renal ultrasound ryanne mmended to exclude the possibility of a solid renal mass. ACT 112: Negative or not required by law. Electronically signed by: Gonzalo Lima M.D. 01/09/2020 5:39 PM
[2020-01-09] MEDS ORDERED: SODIUM CHLORIDE 0.9% 1000ML 500 ML IV ONE (18:05)
[2020-01-09 18:44] LABS: Appearance Urine Clear (Clear); Bacteria Urine Automated Negative (Negative); Bilirubin Urine Negative (Negative); Blood Urine Negative (Negative); Cast Urine Automated 0 /lpf (0-5); Color Urine Yellow; Glucose Urine UA Negative (Negative); Ketones Urine 1+ (Negative); Leukocyte Esterase Urine Negative (Negative); Nitrite Urine Negative (Negative); RBC Urine Automated 0-4 /hpf (0-4); Specific Gravity Urine > 1.045 (1.000-1.030); Urobilinogen Urine Negative (Negative); WBC Urine Automated 0 /hpf (0-5); pH Urine 7.5 (4.5-7.5)
[2020-01-09 18:55] LABS: Protein Urine Negative (Negative); Sulfosalicylic Acid Urine Negative (Negative)
--- NOTE | 2020-01-09 20:05 | History & Physical Report ---
Date of Service January 09, 2020 Assessment & Plan (1) Abdominal pain: 69yo C male with PEG tube in place presenting with nausea/vomiting/abdominal fullness, found to have fluid-filled distended stomach, gastrostomy tube bulb located in the duodenal bulb possibly causing a low-grade partial gastric outlet obstruction. Possible gastroenteritis. -Admit to medical floor -Keep NPO, no medications through PEG tube for now -Consult GI - assistance appreciated, possible tube replacement in AM -Aspiration from PEG tube q 4 hours and PRN for comfort -Aspiration precautions Present on Admission?: Yes (2) Gastric outlet obstruction: As above, possibly secondary to migration of PEG tube bulb -Treatment as above -Pain control with home medications, Fentanyl/Lidocaine as well as IV Morphine PRN Present on Admission?: Yes (3) Coronary atherosclerosis of [place] coronary vessel: Chronic. Stable. Patient denies CP -Hold ASA for now, resume when PEG tube is functioning properly Present on Admission?: Yes (4) Hypothyroidism: Chronic. -Hold Synthroid for now, resume when PEG tube is functioning properly -Check TSH with AM labs Present on Admission?: Yes (5) Depression: Chronic. Well controlled with Sertraline 100mg po daily. Currently on hold until PEG tube is repositioned and functional -Holding Sertraline for now -Hold Remeron for now -Resume when PEG tube is functioning properly Present on Admission?: Yes (6) COPD (chronic obstructive pulmonary disease): Chronic. Stable. No worsening SOB/cough/wheeze or sputum -Continue Albuterol/Ipratropium -O2 as needed Present on Admission?: Yes (7) Renal cyst: F/E/N - NSS at 80mL/hr, K repleted, resume PO K when PEG tube is functional, NPO for now Ppx- SCDs Code - Full Dispo - Admit to medical floor Present on Admission?: Yes Admission and Anticipated Discharge Date Admission Date: 01/09/20 Anticipated date of discharge: 01/11/20 History of Present Illness Chief Complaint: Abdominal pain Primary Care Provider: Chapito Milner DO Mr. Luis Boss is a pleasant 69yo C male with history of supraglottic CA, Lung CA, COPD/Hypothyroidism/Depression, PEG tube in place presenting with one day of abdominal pain, nausea. He reports that yesterday afternoon he began feeling fullness and tightness in his abdomen after receiving his tube feeding. He has had nausea, non-bloody vomiting and abdominal pain, chronic unformed stools as well as a feeling of unrest and inability to sleep due to discomfort. He reports some minor leakage around the PEG tube. He has had difficulty passing liquid through it and aspirating through the tube. No additional complaints - specifically denies fever/chills/chest pain/palpitations. He has had some hot and cold flashes as well as some mild shortness of breath. ER Course: Morphine, Zofran, KCL Allergies Allergy/AdvReac Type Severity Reaction Status Date / Time NSAIDS (Non-Steroidal AdvReac Mild upset Verified 01/09/20 18:57 Anti-Inflamma stomach Home Medications Home Medications Medication Instructions Recorded Confirmed Type Nutren 2.0 2 can FEEDING TUBE BID 05/11/18 01/09/20 History fentanyl 1 patch TRANSDERMAL Q72H 05/11/18 01/09/20 History ipratropium-albuterol 1 puff INHALATION QID 05/11/18 01/09/20 History ipratropium-albuterol 3 ml INHALATION QID 05/11/18 01/09/20 History loratadine 10 mg FEEDING TUBE DAILY PRN 05/11/18 01/09/20 History magnesium oxide 420 mg FEEDING TUBE DAILY 05/11/18 01/09/20 History potassium chloride 40 meq FEEDING TUBE DAILY 05/11/18 01/09/20 History budesonide-formoterol HFA 160 2 puffs INH BID 02/15/19 01/09/20 History mcg-4.5 mcg/actuation aerosol inhaler buspirone 5 mg tablet 5 mg FEEDING TUBE BID 02/15/19 01/09/20 History loperamide 1 mg/7.5 mL oral liquid 2 mg FEEDING TUBE Q4H PRN 02/15/19 01/09/20 History wheat dextrin 3 gram/3.8 gram oral 1.5 gm PO DAILY PRN gm 02/15/19 01/09/20 History powder Oxygen Home #1 ea 05/19/19 12/26/19 Rx lansoprazole 30 mg capsule,delayed 30 mg FEEDING TUBE DAILY 05/19/19 01/09/20 History release levothyroxine 137 mcg capsule 137 mcg FEEDING TUBE DAILY 05/19/19 01/09/20 History sertraline 100 mg tablet 100 mg FEEDING TUBE DAILY tab 05/19/19 01/09/20 History gabapentin 300 mg capsule 300 mg FEEDING TUBE BID cap 07/10/19 01/09/20 History oxycodone 5 mg capsule 10 mg FEEDING TUBE Q6 cap 07/10/19 01/09/20 History azithromycin [Zithromax] 500 mg FEEDING TUBE UD 12/18/19 01/09/20 History aspirin 81 mg G-TUBE QAM #90 tab 12/19/19 01/09/20 Rx mirtazapine 45 mg tablet 45 mg FEEDING TUBE DAILY #30 tab 12/20/19 01/09/20 Rx Past Med/Surg History Medical History Anxiety Cancer of supraglottis (Resolved) "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 Radiation completed 02/28/2010 received 7200 cGy Finding of asymmetry of larynx on the right. 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 Radiation completed 02/28/2010 received 7200 cGy Finding of asymmetry of larynx on the right. Plan for laryngoscopy and biopsy 01/27/2017 " Cervical stenosis of spinal canal (Resolved) Chronic low back pain (Chronic) "[facility]" COPD (chronic obstructive pulmonary disease) (Chronic) "is on home oxygen" Depression Hypothyroidism (Chronic) Insomnia Lung cancer (Chronic 10/04/17) "Status post bronchoscopy and biopsy 06/03/2016 right upper lobectomy and lymph node dissection 06/25/2016 Squamous cell carcinoma Stage pT1b pN0M0 Development of a left lower lobe pulmonary nodule Status post bronchoscopy and biopsy pathology nondiagnostic 06/25/2016 Status post SBRT completed 02/05/2017. 5 fractions were given for a total of 5000 cGy. Recheck PET/CT October 04, 2017 revealing right lower lobe nodule with FDG avidity Status post bronchoscopy and biopsies October 28, 2017 Node biopsies negative, bronchial washings negative Status post lung nodule clinic discussion and consensus for stereotactic radiation therapy Status post completion of stereotactic body radiation therapy November 26, 2017. He received 5000 cGy" On 11/05/17 11:37 Sirisha You wrote "Status post bronchoscopy and biopsy 06/03/2016 right upper lobectomy and lymph node dissection 06/25/2016 Squamous cell carcinoma Stage pT1b pN0M0 Development of a left lower lobe pulmonary nodule Status post bronchoscopy and biopsy pathology nondiagnostic 06/25/2016 Status post SBRT completed 02/05/2017. 5 fractions were given for a total of 5000 cGy. Recheck PET/CT October 04, 2017 revealing right lower lobe nodule with FDG avidity Status post bronchoscopy and biopsies October 28, 2017 Node biopsies negative, bronchial washings negative Status post lung nodule clinic discussion and consensus for stereotactic radiation therapy" On 02/18/17 10:09 Sirisha You wrote "Status post bronchoscopy and biopsy 06/03/2016 right upper lobectomy and lymph node dissection 06/25/2016 Squamous cell carcinoma Stage pT1b pN0M0 Development of a left lower lobe pulmonary nodule Status post bronchoscopy and biopsy pathology nondiagnostic 06/25/2016 Status post SBRT completed 02/05/2017. 5 fractions were given for a total of 5000 cGy." On 01/07/17 09:52 Sirisha You wrote "Status post bronchoscopy and biopsy 06/03/2016 right upper lobectomy and lymph node dissection 06/25/2016 Squamous cell carcinoma Stage pT1b pN0M0 Development of a left lower lobe pulmonary nodule Status post bronchoscopy and biopsy pathology nondiagnostic 06/25/2016" On 01/07/17 09:51 Sirisha You wrote "Status post bronchoscopy and biopsy 06/03/2016 right upper lobectomy and lymph node dissection 06/25/2016 Squamous cell carcinoma Stage pT1b pN0M0 Development of a left lower lobe pulmonary nodule" Oxygen dependent Presence of externally removable percutaneous endoscopic gastrostomy (PEG) tube (~2019) Surgical History H/O cervical spine surgery (Acute) H/O neck surgery (Acute) right side Percutaneous endoscopic gastrostomy status (Acute) S/P lobectomy of lung (Resolved) Family History Other No pertinent family history Denies family history of Ovarian cancer Prostate cancer Breast cancer Lung cancer Colorectal cancer Social History Preferred Language: [place] Communication Ability: Effective Visual Impairment: Limited Hearing Ability: Normal 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 Beliefs That Will Affect Care: None marital status: Single Current Living Situation: Family and Significant Other current occupational status: retired Feels Safe at Home: Yes Smoking Status: Former smoker Do You Dip or Chew Tobacco: No ; Second Hand Exposure: No ; Hx Alcohol Use: No Hx Substance Use: No caffeine: No Dental Care, Regularly: Yes Physical Activity Frequency: Does not Exercise Seatbelt Use: always Sunscreen Use: Yes Review of Systems Review of Systems: All systems reviewed & are unremarkable except as noted in HPI & below Physical Exam Physical Exam: General: patient in moderate amount of discomfort, NAD, AA&O x 4 Skin: warm, dry, intact, no rashes or lesions HEENT: NC/AT, PERRL, EOMI, anicteric sclera, conjunctiva without injection, external ear normal to inspection and nontender, nares patent, dry mucus membranes, dentition intact, no oropharyngeal lesions, neck supple, trachea midline, no LAD, no thyromegaly, no JVD Heart: +S1/S2, regular, no m/r/g Lungs: equal air entry bilaterally, no rales/rhonchi/wheezes Abd: soft, mildly tender with deep palpation, no rebound/guarding/peritoneal signs, slightly diminished bowel sounds, PEG tube in place, able to aspirate appx 70mL of bilious fluid - aspiration of fluid dependent on position of tube Ext: warm, 2+ pulses in UE/LE bilaterally, no clubbing/cyanosis or edema Neuro: nonfocal, patient AA&O x 4, speech intact, no facial droop, moving all extremities on command with equal strength 5/5 Results & Data Results & Data ([facility]) Vital Signs (Past 12 Hours) Vital Signs Temp Pulse Pulse Resp BP BP Pulse Ox 01/09/20 18:00 72 16 100 01/09/20 17:31 79 17 155/83 H 100 01/09/20 17:30 78 19 155/83 H 100 01/09/20 17:00 80 20 98 01/09/20 16:30 78 18 100 01/09/20 16:16 98 01/09/20 16:15 76 16 99 01/09/20 14:26 36.9 C 85 16 159/85 H 100 Laboratory Results Lab Results 01/09/20 01/09/20 01/09/20 Range/Units 16:10 16:10 18:25 WBC 8.75 (4.8-10.8) K/uL RBC 4.07 L (4.7-6.1) M/uL Hgb 11.8 L (14.0-18.0) g/dL Hct 36.7 L (42-52) % MCV 90.2 (80-100) fL MCH 29.0 (25-34) pg MCHC 32.2 (32-36) g/dL RDW Std Deviation 46.1 (36.4-46.3) fL RDW Coeff of Stephanie 14.2 (11.5-14.5) % Plt Count 311 (130-400) K/uL MPV 9.0 (7.4-10.4) fL Immature Gran % (Auto) 0.2 % Neut % (Auto) 89.6 % Lymph % (Auto) 5.7 % [place] % (Auto) 4.2 % Eos % (Auto) 0.1 % Baso % (Auto) 0.2 % Immature Gran # (Auto) 0.02 (0.00-0.02) K/uL Neut # (Auto) 7.83 H (1.4-6.5) K/uL Lymph # (Auto) 0.50 L (1.2-3.4) K/uL [place] # (Auto) 0.37 (0.11-0.59) K/uL Eos # (Auto) 0.01 (0-0.5) K/uL Baso # (Auto) 0.02 (0-0.2) K/uL Sodium 134 L (136-145) mmol/L Potassium 3.3 L (3.5-5.1) mmol/L Chloride 98 (98-107) mmol/L Carbon Dioxide 32 (21-32) mmol/L Anion Gap 4.0 (3-11) BUN 14 (7-18) mg/dl Creatinine 0.61 (0.6-1.4) mg/dl Est Cr Clr Drug Dosing 118.0 ml/min Est GFR ( Amer) 119.8 Est GFR (Non-Af Amer) 103.3 BUN/Creatinine Ratio 22.4 H (10-20) Glucose 138 H (70-99) mg/dl Calcium 9.4 (8.5-10.1) mg/dl Magnesium 2.4 (1.8-2.4) mg/dl Total Bilirubin 0.4 (0.2-1) mg/dl AST 14 L (15-37) U/L ALT 19 (12-78) U/L Alkaline Phosphatase 82 (45-117) U/L Troponin I < 0.015 (0-0.045) ng/ml Total Protein 7.5 (6.4-8.2) gm/dl Albumin 3.8 (3.4-5.0) gm/dl Globulin 3.7 (2.5-4.0) gm/dl Albumin/Globulin Ratio 1.0 (0.9-2) Lipase 107 (73-393) U/L Urine Color Yellow Urine Appearance Clear (Clear) Urine pH 7.5 (4.5-7.5) Ur Specific [place] > 1.045 H (1.000-1.030) Urine Protein Negative (Negative) Urine Glucose (UA) Negative (Negative) Urine Ketones 1+ H (Negative) Urine Blood Negative (Negative) Urine Nitrite Negative (Negative) Urine Bilirubin Negative (Negative) Urine Urobilinogen Negative (Negative) Ur Leukocyte Esterase Negative (Negative) Urine WBC (Auto) 0 (0-5) /hpf Urine RBC (Auto) 0-4 (0-4) /hpf U Hyaline Cast (Auto) 0 (0-5) /lpf U Epithel Cells (Auto) 5-10 H (0-5) /lpf Urine Bacteria (Auto) Negative (Negative) Diagnostic Findings ABDOMEN AND PELVIS CT WITH IV CONTRAST CT DOSE: 313.03 mGy.cm HISTORY: Vomiting. TECHNIQUE: Multiaxial CT images of the abdomen and pelvis were performed following the use of intravenous contrast. A dose lowering technique was utilized adhering to the principles of ALARA. COMPARISON STUDY: PET scan 01/16/2019. Chest CT 12/18/2019. FINDINGS: Trace right pleural effusion, unchanged. Emphysema. Partially visualized left lower lobe consolidation remains unchanged. This is better appreciated on the recent chest CT. Decrease in size in a 5 mm nodule within the left lower lobe on image 9. No pneumoperitoneum. No pneumatosis. Old, healed left pubic ring fracture. No suspicious lytic are blastic osseous lesions. Old, healed right rib fractures. The liver, gallbladder, pancreas, spleen, adrenal glands, left kidney are unremarkable. No hydronephrosis. There is a 4 mm hypodense lesion within the lower pole the right kidney. This is technically too small to characterize. There is also an exophytic 1.7 x 1.5 cm intermediate density lesion within the right kidney on image 173. This does not represent a simple cyst. This favors a hyperdense cyst but could represent a renal mass and is incompletely characterized on this single phase study. Moderate calcified plaque within the normal caliber abdominal aorta. The main portal vein is patent. No retroperitoneal lymphadenopathy. Fluid-filled and mildly distended stomach. The gastrostomy tube bulb is located within the duodenal bulb. This previously was located within the gastric antrum. Therefore, this could result in a low-grade partial gastric outlet obstruction. Multiple nondilated fluid- filled fluid loops of small bowel are noted. Mild thickening of the bladder. This may be due to chronic outlet obstruction from the mildly enlarged prostate gland. The colon is decompressed. Colonic diverticulosis. No evidence for diverticulitis. No bowel wall thickening. IMPRESSION: 1. Fluid-filled and mildly distended stomach. The gastrostomy tube bulb is now located within the duodenal bulb. This was previously located in the gastric antrum. Therefore, this could result in a low-grade partial gastric outlet obstruction. 2. Fluid-filled nondilated small bowel. Therefore, these findings could also represent a gastroenteritis. Clinical correlation recommended. 3. Colonic diverticulosis. No evidence for diverticulitis. 4. Trace right pleural effusion, unchanged. 5. No change in the left lower lobe consolidation. This is better appreciated on the recent chest CT. 6. Decrease in size in a 5 mm nodule within the left lower lobe. 7. An exophytic 1.7 x 1.5 cm intermediate density lesion within the right kidney. This does not represent a simple cyst but favors a hyperdense cyst. However, follow-up nonemergent renal ultrasound recommended to exclude the possibility of a solid renal mass. ACT 112: Negative or not required by law. Electronically signed by: Gonzalo Lima M.D. 01/09/2020 5:39 PM Dictated: 01/09/20 1726 Transcribed: 01/09/20 1726 ------- XR chest 1V portable CLINICAL HISTORY: weakness COMPARISON STUDY: 12/18/2019 FINDINGS: The cardiac and mediastinal contours remain stable. Postsurgical changes are again evident on the right. There is a persistent nodular opacity at the left lung base measuring 3 cm. There are associated interstitial opacities. Underlying emphysema is suspected.[ IMPRESSION: 1. No significant change from the prior study 2. Postsurgical changes on the right 3. Persistent 3 cm nodular opacity at the left lung base ACT 112: Negative or not required by law. Electronically signed by: Gentry Tsang M.D. 01/09/2020 4:11 PM Dictated: 01/09/20 1607 Transcribed: 01/09/20 1607 ECG Additional Comments: The EKG shows NSR at 81bpm, normal axis, FV=997, QRS=86, LPy=458 Code Status & VTE Plan Code Status FULL VTE Prophylaxis Plan VTE Prophylaxis will be ordered: Yes PG Care Time/CCT Total # of Minutes Spent Total Time Spent with Patient: Total time spent is greater than 50% in coordination of care (as documented) at patient's floor/unit and/or counseling patient: Coding Level of Care Code 47397 Initial Inpt Care Lvl 3 Diagnoses Abdominal pain R10.84 Abdominal location: generalized Gastric outlet obstruction K31.1 Coronary atherosclerosis of [place] coronary vessel I25.10 [place] vs. transplanted heart: [place] heart Associated angina: without angina Hypothyroidism E03.9 Hypothyroidism type: unspecified Depression F33.9 Depression Type: major depressive disorder Major depression recurrence: recurrent Active/Remission status: remission status unspecified COPD (chronic obstructive pulmonary disease) J44.9 COPD type: unspecified COPD Renal cyst N28.1 (1) Depression Depression Type: major depressive disorder Major depression recurrence: recurrent Active/Remission status: remission status unspecified Qualified Code(s): F33.9 - Major depressive disorder, recurrent, unspecified (2) Hypothyroidism Hypothyroidism type: unspecified Qualified Code(s): E03.9 - Hypothyroidism, unspecified (3) Coronary atherosclerosis of [place] coronary vessel [place] vs. transplanted heart: [place] heart Associated angina: without angina Qualified Code(s): I25.10 - Atherosclerotic heart disease of [place] coronary artery without angina pectoris (4) Abdominal pain Abdominal location: generalized Qualified Code(s): R10.84 - Generalized abdominal pain (5) COPD (chronic obstructive pulmonary disease) COPD type: unspecified COPD Qualified Code(s): J44.9 - Chronic obstructive pulmonary disease, unspecified
[2020-01-09] MEDS: MoRPHine SULFATE 4 MG/ML 1 ML CARP\\VIAL IV PRN (20:45)
[2020-01-09] MEDS ORDERED: MoRPHine SULFATE 4 MG/ML 1 ML CARP\\VIAL IV STA (21:02)
[2020-01-09] MEDS ORDERED: ONDANSETRON INJ 2 MG/ML 2 ML VIAL IV PRN (21:02)
[2020-01-09] MEDS ORDERED: IPRATROPIUM BROMIDE/ALBUTEROL respimat INH INH SCH (21:02)
[2020-01-09] MEDS: POTASSIUM CHLORIDE / WTR 10 MEQ/100 ML PLCT IV SCH ×3 (21:25→23:23)
[2020-01-09] MEDS ORDERED: ALBUT/IPRATROP 3MG/0.5MG NEB 3 ML VIAL INH PRN (21:45)
[2020-01-09] MEDS ORDERED: LIDOCAINE 5% 1 PATCH TD PRN (22:23)
[2020-01-09] MEDS: CHECK FENTANYL PATCH PLACEMENT SCH (23:23)
[2020-01-10] MEDS: MoRPHine SULFATE 4 MG/ML 1 ML CARP\\VIAL IV PRN ×3 (00:37→10:02)
[2020-01-10] MEDS: LORazepam 0.5 MG/1 ML VIAL IV PRN ×2 (01:45→07:42)
[2020-01-10] MEDS ORDERED: ALBUT/IPRATROP 3MG/0.5MG NEB 3 ML VIAL INH SCH (07:00)
[2020-01-10] MEDS: ALBUTEROL HFA 8 GM INHALER INH SCH ×3 (07:24→15:24)
[2020-01-10] MEDS: IPRATROPIUM BROMIDE HFA INHALER INH SCH ×3 (07:24→15:24)
--- NOTE | 2020-01-10 08:55 | Electrocardiogram Report ---
Test Reason : Blood Pressure : / mmHG Vent. Rate : 081 BPM Atrial Rate : 081 BPM P-R Int : 158 ms QRS Dur : 086 ms QT Int : 398 ms P-R-T Axes : 070 000 070 degrees QTc Int : 462 ms Normal sinus rhythm Possible Left atrial enlargement Septal infarct (cited on or before 09-JAN-2020) Abnormal ECG When compared with ECG of 18-DEC-2019 00:01, Questionable change in initial forces of Septal leads Nonspecific T wave abnormality now evident in Anterior leads Confirmed by Caio Ibarra ([id number]) on 01/10/2020 8:54:59 AM Referred By: REFERRED SELF Confirmed By:Caio Ibarra
[2020-01-10] MEDS ORDERED: FLUTICASONE/VILANTEROL 100/25MCG 14 PUFFS/INHALER INH SCH (09:00)
[2020-01-10] MEDS: CHECK FENTANYL PATCH PLACEMENT SCH ×2 (10:07→15:15)
[2020-01-10] MEDS ORDERED: SODIUM CHLORIDE 0.9% 1000ML 1,000 ML IV SCH (10:15)
--- NOTE | 2020-01-10 11:31 | History & Physical Report ---
Date of Service January 10, 2020 Assessment & Plan (1) Gastric outlet obstruction: History of Present Illness Primary Care Provider: Chapito Milner, DO EGD for Gastric outlet obstruction. Has berried bumper in the duodenum, need to r/o ulcer disease caused by the balloon. Allergies Allergy/AdvReac Type Severity Reaction Status Date / Time NSAIDS (Non-Steroidal AdvReac Mild upset Verified 01/09/20 18:57 Anti-Inflamma stomach Home Medications Home Medications Medication Instructions Recorded Confirmed Type Nutren 2.0 2 can FEEDING TUBE BID 05/11/18 01/09/20 History fentanyl 1 patch TRANSDERMAL Q72H 05/11/18 01/09/20 History ipratropium-albuterol 1 puff INHALATION QID 05/11/18 01/09/20 History ipratropium-albuterol 3 ml INHALATION QID 05/11/18 01/09/20 History loratadine 10 mg FEEDING TUBE DAILY PRN 05/11/18 01/09/20 History magnesium oxide 420 mg FEEDING TUBE DAILY 05/11/18 01/09/20 History potassium chloride 40 meq FEEDING TUBE DAILY 05/11/18 01/09/20 History budesonide-formoterol HFA 160 2 puffs INH BID 02/15/19 01/09/20 History mcg-4.5 mcg/actuation aerosol inhaler buspirone 5 mg tablet 5 mg FEEDING TUBE BID 02/15/19 01/09/20 History loperamide 1 mg/7.5 mL oral liquid 2 mg FEEDING TUBE Q4H PRN 02/15/19 01/09/20 History wheat dextrin 3 gram/3.8 gram oral 1.5 gm PO DAILY PRN gm 02/15/19 01/09/20 History powder Oxygen Home #1 ea 05/19/19 12/26/19 Rx lansoprazole 30 mg capsule,delayed 30 mg FEEDING TUBE DAILY 05/19/19 01/09/20 History release levothyroxine 137 mcg capsule 137 mcg FEEDING TUBE DAILY 05/19/19 01/09/20 History sertraline 100 mg tablet 100 mg FEEDING TUBE DAILY tab 05/19/19 01/09/20 History gabapentin 300 mg capsule 300 mg FEEDING TUBE BID cap 07/10/19 01/09/20 History oxycodone 5 mg capsule 10 mg FEEDING TUBE Q6 cap 07/10/19 01/09/20 History azithromycin [Zithromax] 500 mg FEEDING TUBE UD 12/18/19 01/09/20 History aspirin 81 mg G-TUBE QAM #90 tab 12/19/19 01/09/20 Rx mirtazapine 45 mg tablet 45 mg FEEDING TUBE DAILY #30 tab 12/20/19 01/09/20 Rx Past Med/Surg History Medical History Anxiety Cancer of supraglottis (Resolved) "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 Radiation completed 02/28/2010 received 7200 cGy Finding of asymmetry of larynx on the right. 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 Radiation completed 02/28/2010 received 7200 cGy Finding of asymmetry of larynx on the right. Plan for laryngoscopy and biopsy 01/27/2017 " Cervical stenosis of spinal canal (Resolved) Chronic low back pain (Chronic) [facility]" COPD (chronic obstructive pulmonary disease) (Chronic) "is on home oxygen" Depression Hypothyroidism (Chronic) Insomnia Lung cancer (Chronic 10/04/17) "Status post bronchoscopy and biopsy 06/03/2016 right upper lobectomy and lymph node dissection 06/25/2016 Squamous cell carcinoma Stage pT1b pN0M0 Development of a left lower lobe pulmonary nodule Status post bronchoscopy and biopsy pathology nondiagnostic 06/25/2016 Status post SBRT completed 02/05/2017. 5 fractions were given for a total of 5000 cGy. Recheck PET/CT October 04, 2017 revealing right lower lobe nodule with FDG avidity Status post bronchoscopy and biopsies October 28, 2017 Node biopsies negative, bronchial washings negative Status post lung nodule clinic discussion and consensus for stereotactic radiation therapy Status post completion of stereotactic body radiation therapy November 26, 2017. He received 5000 cGy" On 11/05/17 11:37 Sirisha You wrote "Status post bronchoscopy and biopsy 06/03/2016 right upper lobectomy and lymph node dissection 06/25/2016 Squamous cell carcinoma Stage pT1b pN0M0 Development of a left lower lobe pulmonary nodule Status post bronchoscopy and biopsy pathology nondiagnostic 06/25/2016 Status post SBRT completed 02/05/2017. 5 fractions were given for a total of 5000 cGy. Recheck PET/CT October 04, 2017 revealing right lower lobe nodule with FDG avidity Status post bronchoscopy and biopsies October 28, 2017 Node biopsies negative, bronchial washings negative Status post lung nodule clinic discussion and consensus for stereotactic radiation therapy" On 02/18/17 10:09 Sirisha You wrote "Status post bronchoscopy and biopsy 06/03/2016 right upper lobectomy and lymph node dissection 06/25/2016 Squamous cell carcinoma Stage pT1b pN0M0 Development of a left lower lobe pulmonary nodule Status post bronchoscopy and biopsy pathology nondiagnostic 06/25/2016 Status post SBRT completed 02/05/2017. 5 fractions were given for a total of 5000 cGy." On 01/07/17 09:52 Sirisha You wrote "Status post bronchoscopy and biopsy 06/03/2016 right upper lobectomy and lymph node dissection 06/25/2016 Squamous cell carcinoma Stage pT1b pN0M0 Development of a left lower lobe pulmonary nodule Status post bronchoscopy and biopsy pathology nondiagnostic 06/25/2016" On 01/07/17 09:51 Sirisha You wrote "Status post bronchoscopy and biopsy 06/03/2016 right upper lobectomy and lymph node dissection 06/25/2016 Squamous cell carcinoma Stage pT1b pN0M0 Development of a left lower lobe pulmonary nodule" Oxygen dependent Presence of externally removable percutaneous endoscopic gastrostomy (PEG) tube (~2019) Surgical History H/O cervical spine surgery (Acute) H/O neck surgery (Acute) right side Percutaneous endoscopic gastrostomy status (Acute) S/P lobectomy of lung (Resolved) Family History Other No pertinent family history Denies family history of Ovarian cancer Prostate cancer Breast cancer Lung cancer Colorectal cancer Social History Preferred Language: Thai Communication Ability: Effective Visual Impairment: Limited Hearing Ability: Normal 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 Beliefs That Will Affect Care: None marital status: Single Current Living Situation: Family and Significant Other current occupational status: retired Feels Safe at Home: Yes Smoking Status: Former smoker Do You Dip or Chew Tobacco: No ; Second Hand Exposure: No ; Hx Alcohol Use: No Hx Substance Use: No caffeine: No Dental Care, Regularly: Yes Physical Activity Frequency: Does not Exercise Seatbelt Use: always Sunscreen Use: Yes Review of Systems All systems reviewed & are unremarkable except as noted in HPI & below Physical Exam Constitutional: comfortable; no acute distress Respiratory: normal respiratory effort, lungs clear to auscultation Cardiovascular: RRR, no murmur, no edema Gastrointestinal (Abdomen): normal bowel sounds, soft, nontender, no hepatosplenomegaly Results & Data Vital Signs (Past 12 Hours) Vital Signs Temp Pulse Resp BP Pulse Ox 01/10/20 07:28 83 18 96 01/10/20 07:10 36.7 C 72 16 168/77 H 98 01/10/20 00:58 74 140/77 01/10/20 00:34 36.7 C 76 18 176/74 H 95 Code Status & VTE Plan VTE Prophylaxis Plan VTE Prophylaxis will be ordered: Yes
[2020-01-10] MEDS ORDERED: PROPOFOL IV EMULSION 10 MG/ML 20 ML VIAL IV ONE (11:49)
[2020-01-10] MEDS ORDERED: SUCCINYLCHOLINE CHLORIDE 20 MG/ML 10 ML VIAL IV ONE (11:49)
[2020-01-10] MEDS ORDERED: LIDOCAINE HCL 2% 2 ML VIAL/AMP(20MG/ML) INFIL ONE (11:49)
[2020-01-10] MEDS ORDERED: fentaNYL citrate 100 MCG/2 ML VIAL ONE (11:49)
[2020-01-10] MEDS ORDERED: ONDANSETRON INJ 2 MG/ML 2 ML VIAL ONE (11:49)
--- NOTE | 2020-01-10 12:35 | Anesthesiology Consultation ---
Date of Service January 10, 2020 Assessment & Plan (1) Encounter for pre-operative examination: Chart Review Chart Review: Acceptable Risk for Surgery History Surgery Operation Date: 01/10/20 13:45 Proposed Procedures p Esophagogastroduodenoscopy - Dari Aguila MD Height/Weight Height: 5 ft 10 in Weight: 71.3 kg Allergies Allergy/AdvReac Type Severity Reaction Status Date / Time NSAIDS (Non-Steroidal AdvReac Mild upset Verified 01/09/20 18:57 Anti-Inflamma stomach Medications Home Medications Medication Instructions Recorded Confirmed Last Taken Nutren 2.0 2 can FEEDING TUBE BID 05/11/18 01/09/20 01/08/20 fentanyl 1 patch TRANSDERMAL Q72H 05/11/18 01/09/20 01/08/20 ipratropium-albuterol 1 puff INHALATION QID 05/11/18 01/09/20 02/02/19 05:00 ipratropium-albuterol 3 ml INHALATION QID 05/11/18 01/09/20 01/08/20 loratadine 10 mg FEEDING TUBE DAILY PRN 05/11/18 01/09/20 02/02/19 magnesium oxide 420 mg FEEDING TUBE DAILY 05/11/18 01/09/20 01/08/20 potassium chloride 40 meq FEEDING TUBE DAILY 05/11/18 01/09/20 01/08/20 budesonide-formoterol HFA 160 2 puffs INH BID 02/15/19 01/09/20 Unknown mcg-4.5 mcg/actuation aerosol inhaler buspirone 5 mg tablet 5 mg FEEDING TUBE BID 02/15/19 01/09/20 01/08/20 loperamide 1 mg/7.5 mL oral liquid 2 mg FEEDING TUBE Q4H PRN 02/15/19 01/09/20 Unknown wheat dextrin 3 gram/3.8 gram oral 1.5 gm PO DAILY PRN gm 02/15/19 01/09/20 Unknown powder Oxygen Home #1 ea 05/19/19 12/26/19 Unknown lansoprazole 30 mg capsule,delayed 30 mg FEEDING TUBE DAILY 05/19/19 01/09/20 01/08/20 release levothyroxine 137 mcg capsule 137 mcg FEEDING TUBE DAILY 05/19/19 01/09/20 01/08/20 sertraline 100 mg tablet 100 mg FEEDING TUBE DAILY tab 05/19/19 01/09/20 01/08/20 gabapentin 300 mg capsule 300 mg FEEDING TUBE BID cap 07/10/19 01/09/20 01/08/20 oxycodone 5 mg capsule 10 mg FEEDING TUBE Q6 cap 07/10/19 01/09/20 Unknown azithromycin [Zithromax] 500 mg FEEDING TUBE UD 12/18/19 01/09/20 01/08/20 aspirin 81 mg G-TUBE QAM #90 tab 12/19/19 01/09/20 01/08/20 mirtazapine 45 mg tablet 45 mg FEEDING TUBE DAILY #30 tab 12/20/19 01/09/20 Unknown Active Medications Generic Name Dose Route Start Last Admin Trade Name Freq PRN Reason Stop Dose Admin Albuterol 1 puffs 01/10/20 07:00 01/10/20 11:01 Ventolin Hfa INH 02/09/20 06:59 Not Given QIDR JOCELYN Fluticasone/Vilanterol 1 puffs 01/10/20 09:00 01/10/20 10:07 Breo Ellipta 100/25 Mcg Inh INH 02/09/20 08:59 1 puffs DAILY JOCELYN Administration Lorazepam 0.5 mg in 1 mls @ 1 mls/min 01/10/20 01:24 01/10/20 07:42 Ativan IV 02/09/20 01:23 1 mls/min Q4H PRN Administration Agitation Ipratropium [place] 1 puffs 01/10/20 07:00 01/10/20 11:01 Atrovent Hfa INH 02/09/20 06:59 Not Given QIDR JOCELYN Lidocaine 1 patch 01/09/20 22:23 01/10/20 05:58 Lidoderm 5% TD 02/09/20 08:59 1 patch QAM PRN Administration Pain Miscellaneous 1 ea 01/10/20 00:00 01/10/20 10:07 Fentanyl Patch Check Placement N/A 02/09/20 00:00 1 ea QS JOCELYN Administration Morphine Sulfate 4 mg 01/09/20 21:02 01/10/20 10:02 Morphine Sulfate IV 01/23/20 21:01 4 mg Q4H PRN Administration Pain NPO Date Last Intake of Fluids: 01/09/20 Time Last Intake of Fluids: 23:55 Last Intake of Fluids Comment: sips of water at 0910 Last Intake of Solids Comment: receives nutrition via peg tube Past Medical History Medical History Anxiety Cancer of supraglottis (Resolved) "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 Radiation completed 02/28/2010 received 7200 cGy Finding of asymmetry of larynx on the right. 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 Radiation completed 02/28/2010 received 7200 cGy Finding of asymmetry of larynx on the right. Plan for laryngoscopy and biopsy 01/27/2017 " Cervical stenosis of spinal canal (Resolved) Chronic low back pain (Chronic) "[facility]" COPD (chronic obstructive pulmonary disease) (Chronic) "is on home oxygen" Depression Hypothyroidism (Chronic) Insomnia Lung cancer (Chronic 10/04/17) "Status post bronchoscopy and biopsy 06/03/2016 right upper lobectomy and lymph node dissection 06/25/2016 Squamous cell carcinoma Stage pT1b pN0M0 Development of a left lower lobe pulmonary nodule Status post bronchoscopy and biopsy pathology nondiagnostic 06/25/2016 Status post SBRT completed 02/05/2017. 5 fractions were given for a total of 5000 cGy. Recheck PET/CT October 04, 2017 revealing right lower lobe nodule with FDG avidity Status post bronchoscopy and biopsies October 28, 2017 Node biopsies negative, bronchial washings negative Status post lung nodule clinic discussion and consensus for stereotactic radiation therapy Status post completion of stereotactic body radiation therapy November 26, 2017. He received 5000 cGy" On 11/05/17 11:37 Sirisha You wrote "Status post bronchoscopy and biopsy 06/03/2016 right upper lobectomy and lymph node dissection 06/25/2016 Squamous cell carcinoma Stage pT1b pN0M0 Development of a left lower lobe pulmonary nodule Status post bronchoscopy and biopsy pathology nondiagnostic 06/25/2016 Status post SBRT completed 02/05/2017. 5 fractions were given for a total of 5000 cGy. Recheck PET/CT October 04, 2017 revealing right lower lobe nodule with FDG avidity Status post bronchoscopy and biopsies October 28, 2017 Node biopsies negative, bronchial washings negative Status post lung nodule clinic discussion and consensus for stereotactic radiation therapy" On 02/18/17 10:09 Sirisha You wrote "Status post bronchoscopy and biopsy 06/03/2016 right upper lobectomy and lymph node dissection 06/25/2016 Squamous cell carcinoma Stage pT1b pN0M0 Development of a left lower lobe pulmonary nodule Status post bronchoscopy and biopsy pathology nondiagnostic 06/25/2016 Status post SBRT completed 02/05/2017. 5 fractions were given for a total of 5000 cGy." On 01/07/17 09:52 Sirisha You wrote "Status post bronchoscopy and biopsy 06/03/2016 right upper lobectomy and lymph node dissection 06/25/2016 Squamous cell carcinoma Stage pT1b pN0M0 Development of a left lower lobe pulmonary nodule Status post bronchoscopy and biopsy pathology nondiagnostic 06/25/2016" On 01/07/17 09:51 Sirisha You wrote "Status post bronchoscopy and biopsy 06/03/2016 right upper lobectomy and lymph node dissection 06/25/2016 Squamous cell carcinoma Stage pT1b pN0M0 Development of a left lower lobe pulmonary nodule" Oxygen dependent Presence of externally removable percutaneous endoscopic gastrostomy (PEG) tube (~2019) Exercise / Class Metabolic Activity III < 4 Walking/Shop/Light housework Past Family History Family History Other No pertinent family history Denies family history of Ovarian cancer Prostate cancer Breast cancer Lung cancer Colorectal cancer Past Surgical History Surgical History H/O cervical spine surgery (Acute) H/O neck surgery (Acute) right side Percutaneous endoscopic gastrostomy status (Acute) S/P lobectomy of lung (Resolved) Social History Smoking Status: Former smoker Do You Dip or Chew Tobacco: No Hx Alcohol Use: No Hx Substance Use: No substance use type: does not use Physical Exam Vital Signs Last Vital Signs Temp 36.9 C 01/10/20 12:18 Pulse 78 01/10/20 12:18 Resp 20 01/10/20 12:18 BP 184/89 H 01/10/20 12:18 Pulse Ox 100 01/10/20 12:18 Testing Laboratory Results 01/09/20 16:10 01/09/20 16:10 Urine Color Yellow 01/09/20 18:25 Urine Appearance Clear (Clear) 01/09/20 18:25 Urine pH 7.5 (4.5-7.5) 01/09/20 18:25 Ur Specific [place] > 1.045 (1.000-1.030) H 01/09/20 18:25 Urine Protein Negative (Negative) 01/09/20 18:25 Urine Glucose (UA) Negative (Negative) 01/09/20 18:25 Urine Ketones 1+ (Negative) H 01/09/20 18:25 Urine Nitrite Negative (Negative) 01/09/20 18:25 Ur Leukocyte Esterase Negative (Negative) 01/09/20 18:25 Urine WBC (Auto) 0 /hpf (0-5) 01/09/20 18:25 Urine RBC (Auto) 0-4 /hpf (0-4) 01/09/20 18:25 U Hyaline Cast (Auto) 0 /lpf (0-5) 01/09/20 18:25 U Epithel Cells (Auto) 5-10 /lpf (0-5) H 01/09/20 18:25 Urine Bacteria (Auto) Negative (Negative) 01/09/20 18:25 Electrocardiogram Date: 01/09/20 Findings: + NSR @ (81) and + poor R wave progression Chest X-Ray Date: 01/09/20 Findings: + NAD
[2020-01-10] MEDS ORDERED: fentaNYL citrate 100 MCG/2 ML VIAL IV PRN (12:38)
[2020-01-10] MEDS ORDERED: ATROPINE SULFATE 0.1 MG/ML 10ML SYR IV PRN (12:38)
[2020-01-10] MEDS ORDERED: ONDANSETRON INJ 2 MG/ML 2 ML VIAL IV PRN (12:38)
[2020-01-10] MEDS ORDERED: LABETALOL HCL IV 5 MG/ML 20ML IV PRN (12:38)
[2020-01-10] MEDS ORDERED: MIDAZOLAM HCL 1 MG/ML 2ML VIAL ONE (12:40)
--- NOTE | 2020-01-10 12:57 | Operative Report ---
Post Operative Report Pre & Post Diagnosis Operation Date: 01/10/20 13:45 Pre-Op Diagnosis: Peg Tube Malposition Post-Op Diagnosis: Peg Tube Malposition I identified the patient and participated in the time-out.: Yes Procedure Operation Date: 01/10/20 13:45 Actual Procedures p Esophagogastroduodenoscopy, Exchange of Peg Tube(Not Applicable) - Dari malhotra MD Surgeon Dari Aguila MD Multiple Drill Operator None Estimated Blood Loss 0 Findings See Below (PEG tube exchanged) Specimens None Description of Procedure EGD I attest to the content of the Intraoperative Record and any orders documented therein. Any exceptions are noted below.
--- NOTE | 2020-01-10 13:14 | Anesthesiology Progress Note ---
Date of Service January 10, 2020 Anesthesia Post Procedure Vital Signs Vital Signs: Temp Pulse Pulse Pulse Pulse Resp BP 01/10/20 13:10 72 15 01/10/20 13:04 36.2 C L 77 18 01/10/20 12:18 36.9 C 78 20 01/10/20 07:28 83 18 01/10/20 07:10 36.7 C 72 16 01/10/20 00:58 74 01/10/20 00:34 36.7 C 76 18 01/09/20 23:19 36.8 C 74 20 01/09/20 21:20 36.5 C 73 20 01/09/20 20:00 77 19 138/69 01/09/20 19:30 77 19 01/09/20 19:00 74 18 01/09/20 18:30 77 16 01/09/20 18:00 72 16 01/09/20 17:31 79 17 01/09/20 17:30 78 19 155/83 H 01/09/20 17:00 80 20 01/09/20 16:30 78 18 01/09/20 16:16 01/09/20 16:15 76 16 01/09/20 14:26 36.9 C 85 16 159/85 H BP BP Pulse Ox 01/10/20 13:10 121/62 98 01/10/20 13:04 121/63 100 01/10/20 12:18 184/89 H 100 01/10/20 07:28 96 01/10/20 07:10 168/77 H 98 01/10/20 00:58 140/77 01/10/20 00:34 176/74 H 95 01/09/20 23:19 168/78 H 92 01/09/20 21:20 172/71 H 98 01/09/20 20:00 97 01/09/20 19:30 99 01/09/20 19:00 100 01/09/20 18:30 100 01/09/20 18:00 100 01/09/20 17:31 155/83 H 100 01/09/20 17:30 100 01/09/20 17:00 98 01/09/20 16:30 100 01/09/20 16:16 98 01/09/20 16:15 99 01/09/20 14:26 100 Pain Intensity Abdomen: Pain Intensity: 5 Transfer of Care Handoff Completed per policy Notes Mental Status: alert / awake / arousable Patient Amnestic to Procedure: Yes Nausea / Vomiting: adequately controlled Pain: adequately controlled Airway Patency, RR, SpO2: stable & adequate BP & HR: stable & adequate Hydration State: stable & adequate Anesthetic Complications: no major complications apparent
--- NOTE | 2020-01-10 13:17 | GI REPORT ---
Patient Name: Luis Boss Procedure Date: 01/10/2020 11:43 AM Date of : 1950 Admit Type: Inpatient Age: 69 Gender: Male Attending MD: Dari Aguila MD Procedure: Upper GI endoscopy Providers: Dari Aguila MD Referring MD: Mary Aldridge Indications: For therapy of gastric outlet obstruction Medicines: Propofol per Anesthesia Complications: No immediate complications. Estimated Blood Loss: Estimated blood loss: none. Procedure: Pre-Anesthesia Assessment: - Prior to the procedure, a History and Physical was performed, and patient medications, allergies and sensitivities were reviewed. The patient's tolerance of previous anesthesia was reviewed. - The risks and benefits of the procedure and the sedation options and risks were discussed with the patient. All questions were answered and informed consent was obtained. - Patient identification and proposed procedure were verified prior to the procedure by the physician and the nurse. The procedure was verified in the procedure room. - Pre-procedure physical examination revealed no contraindications to sedation. After obtaining informed consent, the endoscope was passed under direct vision. Throughout the procedure, the patient's blood pressure, pulse, and oxygen saturations were monitored continuously. The Scope was introduced through the mouth, and advanced to the second part of duodenum. The upper GI endoscopy was accomplished without difficulty. The patient tolerated the procedure well. Findings: The examined esophagus was normal. Moderate amount ot retained fluid was found in the stomach, around 500 cc suctioned. There was evidence of an intact gastrostomy with a patent G-tube present in the gastric body and the tip of the tube was extending into the pylorus and the balloon was impcated in the duodenal bulb causing gastric outlet obstruction. The balloon was deflated and the tube was removed. The PEG required removal because it was not functioning. The PEG was removed under endoscopic vision. Removal was easily accomplished. An externally removable 20 Fr Stuart-Cook gastrostomy tube was lubricated. The guide wire was passed through the existing G-tube port and snared endoscopically. The endoscope and snare were then removed, pulling the wire out through the mouth. The g-tube was tied to the guidewire, pulled through the mouth into the stomach and then pulled out from the stomach through the skin. The bumper was attached to the gastrostomy tube. The feeding tube was then cut to an appropriate length. The final position of the gastrostomy tube was confirmed by relook endoscopy, and skin marking noted to be 2 cm at the external bumper. The final tension and compression of the abdominal wall by the PEG tube and external bumper were checked and revealed that the bumper was moderately tight and mildly deforming the skin. The tube was capped, and the tube site was cleaned and dressed. Mildly erythematous mucosa was found in the duodenal bulb related to impaction of the PEG tube balloon. The second portion of the duodenum was normal. Impression: - Gastric outlet obstruction due to impacted gastrostomy tube balloon in the duodenum. The balloon was deflated and a new PEG tube with internal bumper was placed through the same stoma. Recommendation: - Return patient to [facility] for [facility] care. - Can start using PEG feeds today. - Recall GI if needed. Dari Aguila MD 01/10/2020 1:17:06 PM This report has been signed electronically. Note Initiated On: 01/10/2020 11:43 AM Number of Addenda: 0 I attest to the content of the Intraoperative Record and orders documented therein, exceptions below {[id number]}
[2020-01-10 13:37] VITALS: TEMP 97.7
--- NOTE | 2020-01-10 13:41 | Gastrointestinal Consultation ---
Date of Consultation January 10, 2020 Assessment & Plan (1) Gastric outlet obstruction: 69 y/o male with PMHx lung CA and others, h/o PEG tube, now presents with abd distention, vomiting, and has been having difficulty with feeds since PEG was replaced in November in the ER. CT findings concerning for gastric outlet obstruction due to PEG tube in the duodenal bulb. Abd soft, mildly distended. Labs, VSS. - Keep NPO - EGD Today - IVF - Analgesia PRN - Antiemetics PRN Thank you for allowing us to participate in the care of this patient. Please call with any acute changes, questions or concerns. Please see addendum below with additional recommendation from my supervising physician. (2) Presence of externally removable percutaneous endoscopic gastrostomy (PEG) tube: Supervising Physician Co-Signing Physician Notes I performed a history and physical examination of the patient today, including specifically on physical exam - soft abdomen. I have discussed the patient's management with the advanced practitioner. Please refer to the nurse practitioner's note for the documented findings and plan of care. EGD for PEG exchange today. Stool w/u for enteritis. History of Present Illness Reason for Consultation: PEG tube replacement Attending Physician: Mary Aldridge MD History of Present Illness Pt is a 69 y/o male with PMHx lung CA, supraglottic CA, COPD, HTN, depression, PEG tube, admitted yesterday after presenting with abd distention, vomiting, and inability to give feeds through his PEG. Pt notes he had difficulty with his PEG in November and came to the ER where it was found to be dislodged; it was then replaced and placement was confirmed with KUB with Gastrograffin. Pt states ever since then he's had difficulty with his PEG; encounters a lot of resistance when giving himself feeds and they come out the side port. For the last few days he hasn't been able to give himself any feeds or meds through the tube. On arrival labs with stable HBG, WBC WNL, renal fxn/LFTs WNL. CTAP with fluid filled and mildly distended stomach, G-tube now in the duodenal bulb, concern for gastric outlet obstruction along with fluid-filled nondilated small bowel. Attempts were made to pull on the tube to reposition it but were not successful; large amt of fluid aspirated from the tube. Overnight pt feels the same; still feels uncomfortable, full; no nausea, vomiting, hematemesis, melena, hematochezia, chest pain, dyspnea (has chronic cough), fever. Labs stable. Afebrile. VSS. Allergies Allergy/AdvReac Type Severity Reaction Status Date / Time NSAIDS (Non-Steroidal AdvReac Mild upset Verified 01/09/20 18:57 Anti-Inflamma stomach Home Medications Home Medications Medication Instructions Recorded Confirmed Type Nutren 2.0 2 can FEEDING TUBE BID 05/11/18 01/09/20 History fentanyl 1 patch TRANSDERMAL Q72H 05/11/18 01/09/20 History ipratropium-albuterol 1 puff INHALATION QID 05/11/18 01/09/20 History ipratropium-albuterol 3 ml INHALATION QID 05/11/18 01/09/20 History loratadine 10 mg FEEDING TUBE DAILY PRN 05/11/18 01/09/20 History magnesium oxide 420 mg FEEDING TUBE DAILY 05/11/18 01/09/20 History potassium chloride 40 meq FEEDING TUBE DAILY 05/11/18 01/09/20 History budesonide-formoterol HFA 160 2 puffs INH BID 02/15/19 01/09/20 History mcg-4.5 mcg/actuation aerosol inhaler buspirone 5 mg tablet 5 mg FEEDING TUBE BID 02/15/19 01/09/20 History loperamide 1 mg/7.5 mL oral liquid 2 mg FEEDING TUBE Q4H PRN 02/15/19 01/09/20 History wheat dextrin 3 gram/3.8 gram oral 1.5 gm PO DAILY PRN gm 02/15/19 01/09/20 History powder Oxygen Home #1 ea 05/19/19 12/26/19 Rx lansoprazole 30 mg capsule,delayed 30 mg FEEDING TUBE DAILY 05/19/19 01/09/20 History release levothyroxine 137 mcg capsule 137 mcg FEEDING TUBE DAILY 05/19/19 01/09/20 History sertraline 100 mg tablet 100 mg FEEDING TUBE DAILY tab 05/19/19 01/09/20 Histor y gabapentin 300 mg capsule 300 mg FEEDING TUBE BID cap 07/10/19 01/09/20 History oxycodone 5 mg capsule 10 mg FEEDING TUBE Q6 cap 07/10/19 01/09/20 History azithromycin [Zithromax] 500 mg FEEDING TUBE UD 12/18/19 01/09/20 History aspirin 81 mg G-TUBE QAM #90 tab 12/19/19 01/09/20 Rx mirtazapine 45 mg tablet 45 mg FEEDING TUBE DAILY #30 tab 12/20/19 01/09/20 Rx Patient History Medical History Anxiety Cancer of supraglottis (Resolved) "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 Radiation completed 02/28/2010 received 7200 cGy Finding of asymmetry of larynx on the right. 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 Radiation completed 02/28/2010 received 7200 cGy Finding of asymmetry of larynx on the right. Plan for laryngoscopy and biopsy 01/27/2017 " Cervical stenosis of spinal canal (Resolved) Chronic low back pain (Chronic) "[facility]" COPD (chronic obstructive pulmonary disease) (Chronic) "is on home oxygen" Depression Hypothyroidism (Chronic) Insomnia Lung cancer (Chronic 10/04/17) "Status post bronchoscopy and biopsy 06/03/2016 right upper lobectomy and lymph node dissection 06/25/2016 Squamous cell carcinoma Stage pT1b pN0M0 Development of a left lower lobe pulmonary nodule Status post bronchoscopy and biopsy pathology nondiagnostic 06/25/2016 Status post SBRT completed 02/05/2017. 5 fractions were given for a total of 5000 cGy. Recheck PET/CT October 04, 2017 revealing right lower lobe nodule with FDG avidity Status post bronchoscopy and biopsies October 28, 2017 Node biopsies negative, bronchial washings negative Status post lung nodule clinic discussion and consensus for stereotactic radiation therapy Status post completion of stereotactic body radiation therapy November 26, 2017. He received 5000 cGy" On 11/05/17 11:37 Sirisha You wrote "Status post bronchoscopy and biopsy 06/03/2016 right upper lobectomy and lymph node dissection 06/25/2016 Squamous cell carcinoma Stage pT1b pN0M0 Development of a left lower lobe pulmonary nodule Status post bronchoscopy and biopsy pathology nondiagnostic 06/25/2016 Status post SBRT completed 02/05/2017. 5 fractions were given for a total of 5000 cGy. Recheck PET/CT October 04, 2017 revealing right lower lobe nodule with FDG avidity Status post bronchoscopy and biopsies October 28, 2017 Node biopsies negative, bronchial washings negative Status post lung nodule clinic discussion and consensus for stereotactic radiation therapy" On 02/18/17 10:09 Sirisha You wrote "Status post bronchoscopy and biopsy 06/03/2016 right upper lobectomy and lymph node dissection 06/25/2016 Squamous cell carcinoma Stage pT1b pN0M0 Development of a left lower lobe pulmonary nodule Status post bronchoscopy and biopsy pathology nondiagnostic 06/25/2016 Status post SBRT completed 02/05/2017. 5 fractions were given for a total of 5000 cGy." On 01/07/17 09:52 Sirisha You wrote "Status post bronchoscopy and biopsy 06/03/2016 right upper lobectomy and lymph node dissection 06/25/2016 Squamous cell carcinoma Stage pT1b pN0M0 Development of a left lower lobe pulmonary nodule Status post bronchoscopy and biopsy pathology nondiagnostic 06/25/2016" On 01/07/17 09:51 Sirisha You wrote "Status post bronchoscopy and biopsy 06/03/2016 right upper lobectomy and lymph node dissection 06/25/2016 Squamous cell carcinoma Stage pT1b pN0M0 Development of a left lower lobe pulmonary nodule" Oxygen dependent Presence of externally removable percutaneous endoscopic gastrostomy (PEG) tube (~2019) Surgical History H/O cervical spine surgery (Acute) H/O neck surgery (Acute) right side Percutaneous endoscopic gastrostomy status (Acute) S/P lobectomy of lung (Resolved) Family History Other No pertinent family history Denies family history of Ovarian cancer Prostate cancer Breast cancer Lung cancer Colorectal cancer Social History Preferred Language: Ukrainian Communication Ability: Effective Visual Impairment: Limited Hearing Ability: Normal Retail Advisor Required: No Beliefs That Will Affect Care: None marital status: Single Current Living Situation: Family and Significant Other current occupational status: retired Feels Safe at Home: Yes Smoking Status: Former smoker Second Hand Exposure: No ; Hx Alcohol Use: No Hx Substance Use: No caffeine: No Dental Care, Regularly: Yes Physical Activity Frequency: Does not Exercise Seatbelt Use: always Sunscreen Use: Yes Review of Systems Review of Systems: All systems reviewed & are unremarkable except as noted in HPI & below Physical Exam Constitutional: no acute distress chronically ill Respiratory: normal respiratory effort, lungs clear to auscultation Cardiovascular: Rate/Rhythm: regular rate and regular rhythm Extremities: no edema Gastrointestinal (Abdomen): soft, mildly distended with generalized tenderness, normoactive BS Skin: no rashes, warm and dry Psychiatric: A+Ox3, euthymic affect Results & Data ([facility]) Vital Signs (Past 12 Hours) Vital Signs Temp Pulse Pulse Resp BP BP Pulse Ox 01/10/20 13:36 36.5 C 75 18 149/74 H 97 01/10/20 13:20 36.8 C 71 17 142/68 H 98 01/10/20 13:10 72 15 121/62 98 01/10/20 13:04 36.2 C L 77 18 121/63 100 01/10/20 12:18 36.9 C 78 20 184/89 H 100 01/10/20 07:28 83 18 96 01/10/20 07:10 36.7 C 72 16 168/77 H 98 Laboratory Results 01/10/20 01/09/20 01/09/20 Range/Units 05:48 18:25 16:10 WBC (4.8-10.8) K/uL RBC (4.7-6.1) M/uL Hgb (14.0-18.0) g/dL Hct (42-52) % MCV (80-100) fL MCH (25-34) pg MCHC (32-36) g/dL RDW Std Deviation (36.4-46.3) fL RDW Coeff of Stephanie (11.5-14.5) % Plt Count (130-400) K/uL MPV (7.4-10.4) fL Immature Gran % (Auto) % Neut % (Auto) % Lymph % (Auto) % Creek % (Auto) % Eos % (Auto) % Baso % (Auto) % Immature Gran # (Auto) (0.00-0.02) K/uL Neut # (Auto) (1.4-6.5) K/uL Lymph # (Auto) (1.2-3.4) K/uL Creek # (Auto) (0.11-0.59) K/uL Eos # (Auto) (0-0.5) K/uL Baso # (Auto) (0-0.2) K/uL Sodium 134 L (136-145) mmol/L Potassium 3.3 L (3.5-5.1) mmol/L Chloride 98 (98-107) mmol/L Carbon Dioxide 32 (21-32) mmol/L Anion Gap 4.0 (3-11) BUN 14 (7-18) mg/dl Creatinine 0.61 (0.6-1.4) mg/dl Est Cr Clr Drug Dosing 118.0 ml/min Est GFR ( Amer) 119.8 Est GFR (Non-Af Amer) 103.3 BUN/Creatinine Ratio 22.4 H (10-20) Glucose 138 H (70-99) mg/dl Calcium 9.4 (8.5-10.1) mg/dl Magnesium 2.4 (1.8-2.4) mg/dl Total Bilirubin 0.4 (0.2-1) mg/dl AST 14 L (15-37) U/L ALT 19 (12-78) U/L Alkaline Phosphatase 82 (45-117) U/L Troponin I < 0.015 (0-0.045) ng/ml Total Protein 7.5 (6.4-8.2) gm/dl Albumin 3.8 (3.4-5.0) gm/dl Globulin 3.7 (2.5-4.0) gm/dl Albumin/Globulin Ratio 1.0 (0.9-2) Lipase 107 (73-393) U/L TSH 0.806 (0.300-4.500) uIu/ml Urine Color Yellow Urine Appearance Clear (Clear) Urine pH 7.5 (4.5-7.5) Ur Specific [place] > 1.045 H (1.000-1.030) Urine Protein Negative (Negative) Urine Glucose (UA) Negative (Negative) Urine Ketones 1+ H (Negative) Urine Blood Negative (Negative) Urine Nitrite Negative (Negative) Urine Bilirubin Negative (Negative) Urine Urobilinogen Negative (Negative) Ur Leukocyte Esterase Negative (Negative) Urine WBC (Auto) 0 (0-5) /hpf Urine RBC (Auto) 0-4 (0-4) /hpf U Hyaline Cast (Auto) 0 (0-5) /lpf U Epithel Cells (Auto) 5-10 H (0-5) /lpf Urine Bacteria (Auto) Negative (Negative) 01/09/20 Range/Units 16:10 WBC 8.75 (4.8-10.8) K/uL RBC 4.07 L (4.7-6.1) M/uL Hgb 11.8 L (14.0-18.0) g/dL Hct 36.7 L (42-52) % MCV 90.2 (80-100) fL MCH 29.0 (25-34) pg MCHC 32.2 (32-36) g/dL RDW Std Deviation 46.1 (36.4-46.3) fL RDW Coeff of Stephanie 14.2 (11.5-14.5) % Plt Count 311 (130-400) K/uL MPV 9.0 (7.4-10.4) fL Immature Gran % (Auto) 0.2 % Neut % (Auto) 89.6 % Lymph % (Auto) 5.7 % Creek % (Auto) 4.2 % Eos % (Auto) 0.1 % Baso % (Auto) 0.2 % Immature Gran # (Auto) 0.02 (0.00-0.02) K/uL Neut # (Auto) 7.83 H (1.4-6.5) K/uL Lymph # (Auto) 0.50 L (1.2-3.4) K/uL Creek # (Auto) 0.37 (0.11-0.59) K/uL Eos # (Auto) 0.01 (0-0.5) K/uL Baso # (Auto) 0.02 (0-0.2) K/uL Sodium (136-145) mmol/L Potassium (3.5-5.1) mmol/L Chloride (98-107) mmol/L Carbon Dioxide (21-32) mmol/L Anion Gap (3-11) BUN (7-18) mg/dl Creatinine (0.6-1.4) mg/dl Est Cr Clr Drug Dosing ml/min Est GFR ( Amer) Est GFR (Non-Af Amer) BUN/Creatinine Ratio (10-20) Glucose (70-99) mg/dl Calcium (8.5-10.1) mg/dl Magnesium (1.8-2.4) mg/dl Total Bilirubin (0.2-1) mg/dl AST (15-37) U/L ALT (12-78) U/L Alkaline Phosphatase (45-117) U/L Troponin I (0-0.045) ng/ml Total Protein (6.4-8.2) gm/dl Albumin (3.4-5.0) gm/dl Globulin (2.5-4.0) gm/dl Albumin/Globulin Ratio (0.9-2) Lipase (73-393) U/L TSH (0.300-4.500) uIu/ml Urine Color Urine Appearance (Clear) Urine pH (4.5-7.5) Ur Specific [place] (1.000-1.030) Urine Protein (Negative) Urine Glucose (UA) (Negative) Urine Ketones (Negative) Urine Blood (Negative) Urine Nitrite (Negative) Urine Bilirubin (Negative) Urine Urobilinogen (Negative) Ur Leukocyte Esterase (Negative) Urine WBC (Auto) (0-5) /hpf Urine RBC (Auto) (0-4) /hpf U Hyaline Cast (Auto) (0-5) /lpf U Epithel Cells (Auto) (0-5) /lpf Urine Bacteria (Auto) (Negative) Diagnostic Findings CTAP 01/09/20: IMPRESSION: 1. Fluid-filled and mildly distended stomach. The gastrostomy tube bulb is now located within the duodenal bulb. This was previously located in the gastric antrum. Therefore, this could result in a low-grade partial gastric outlet obstruction. 2. Fluid-filled nondilated small bowel. Therefore, these findings could also represent a gastroenteritis. Clinical correlation recommended. 3. Colonic diverticulosis. No evidence for diverticulitis. 4. Trace right pleural effusion, unchanged. 5. No change in the left lower lobe consolidation. This is better appreciated on the recent chest CT. 6. Decrease in size in a 5 mm nodule within the left lower lobe. 7. An exophytic 1.7 x 1.5 cm intermediate density lesion within the right kidney. This does not represent a simple cyst but favors a hyperdense cyst. However, follow-up nonemergent renal ultrasound recommended to exclude the possibility of a solid renal mass.
[2020-01-10] MEDS ORDERED: fentaNYL 25 MCG/HR TDSY TD ONE (14:40)
[2020-01-10] MEDS ORDERED: LOPERAMIDE LIQUID 120 ML BOTTLE GT PRN (14:51)
[2020-01-10] MEDS ORDERED: LORATADINE 10 MG TAB GT PRN (14:51)
[2020-01-10] MEDS ORDERED: MIRTAZAPINE SOLTAB 15 MG PO SCH (15:15)
[2020-01-10] MEDS ORDERED: LANSOPRAZOLE 30 MG SOLTAB NG SCH (15:15)
[2020-01-10 15:27] VITALS: O2SAT 98
[2020-01-10] MEDS ORDERED: LEVOTHYROXINE SODIUM 137 MCG TABLET PO SCH (15:30)
[2020-01-10] MEDS ORDERED: SERTRALINE HCL 100 MG TABLET PEG SCH (15:30)
[2020-01-10] MEDS ORDERED: ASPIRIN 81 MG CHEW PEG SCH (15:30)
[2020-01-10] MEDS ORDERED: POTASSIUM CHLORIDE 20 MEQ/15 ML UDC PO SCH (15:30)
[2020-01-10] MEDS ORDERED: PSYLLIUM 58.6% POWDER PACKET PO PRN (15:31)
[2020-01-10 16:11] VITALS: BP 175/87; PULSE 66
[2020-01-10] MEDS ORDERED: OXYCODONE HCL IR 5 MG TAB (IMMEDIATE RELEASE) PEG SCH (18:00)
--- NOTE | 2020-01-10 19:38 | Discharge Summary ---
Date of Service January 10, 2020 Admission HPI Per Admitting Provider Mr. Luis Boss is a pleasant 69yo C male with history of supraglottic CA, Lung CA, COPD/Hypothyroidism/Depression, PEG tube in place presenting with one day of abdominal pain, nausea. He reports that yesterday afternoon he began feeling fullness and tightness in his abdomen after receiving his tube feeding. He has had nausea, non-bloody vomiting and abdominal pain, chronic unformed stools as well as a feeling of unrest and inability to sleep due to discomfort. He reports some minor leakage around the PEG tube. He has had difficulty passing liquid through it and aspirating through the tube. No additional complaints - specifically denies fever/chills/chest pain/palpitations. He has had some hot and cold flashes as well as some mild shortness of breath. ER Course: Morphine, Zofran, KCL Admission Exam Per Admitting Provider General: patient in moderate amount of discomfort, NAD, AA&O x 4 Skin: warm, dry, intact, no rashes or lesions HEENT: NC/AT, PERRL, EOMI, anicteric sclera, conjunctiva without injection, external ear normal to inspection and nontender, nares patent, dry mucus membranes, dentition intact, no oropharyngeal lesions, neck supple, trachea midline, no LAD, no thyromegaly, no JVD Heart: +S1/S2, regular, no m/r/g Lungs: equal air entry bilaterally, no rales/rhonchi/wheezes Abd: soft, mildly tender with deep palpation, no rebound/guarding/peritoneal signs, slightly diminished bowel sounds, PEG tube in place, able to aspirate appx 70mL of bilious fluid - aspiration of fluid dependent on position of tube Ext: warm, 2+ pulses in UE/LE bilaterally, no clubbing/cyanosis or edema Neuro: nonfocal, patient AA&O x 4, speech intact, no facial droop, moving all extremities on command with equal strength 5/5 Principal Diagnosis Gastric outlet obstruction from PEG tube Discharge Exam General: Patient in no discomfort, NAD, AA&O x 4 Skin: warm, dry, intact, no rashes or lesions Area around PEG tube clean, non infected HEENT: NC/AT, PERRL, EOMI, anicteric sclera, conjunctiva without injection, external ear normal to inspection and nontender, nares patent, dry mucus membranes, dentition intact, no oropharyngeal lesions, neck supple, trachea midline, no LAD, no thyromegaly, no JVD Heart: +S1/S2, regular, no m/r/g Lungs: equal air entry bilaterally, no rales/rhonchi/wheezes Abd: soft, No longer tender, no rebound/guarding/peritoneal signs, Normal bowel sounds. PEG tube in place, Able to freely push nutragen through. Ext: warm, 2+ pulses in UE/LE bilaterally, no clubbing/cyanosis or edema Neuro: nonfocal, patient AA&O x 4, speech intact, no facial droop, moving all extremities on command with equal strength 5/5 Discharge Data Allergies Allergy/AdvReac Type Severity Reaction Status Date / Time NSAIDS (Non-Steroidal AdvReac Mild upset Verified 01/09/20 18:57 Anti-Inflamma stomach Consultations 01/09/20 18:43 ED Decision to Admit Stat 01/09/20 21:02 Consult Gastroenterology Routine Procedures Performed Operation Date: 01/10/20 13:45 Actual Procedures p Esophagogastroduodenoscopy, Exchange of Peg Tube(Not Applicable) - Dari Aguila MD Ordered Studies 01/09/20 15:54 CT abd pelvis IV con only Stat Hospital Course (1) Gastric outlet obstruction: 69 y/o male with PMHx lung CA and others, h/o PEG tube, now presents with abd distention, vomiting, and has been having difficulty with feeds since PEG was replaced in November in the ER. CT findings concerning for gastric outlet obstruction due to PEG tube in the duodenal bulb. Abd soft, mildly distended. Labs unremarkable for the most part, vital signs within normal limits Patient was rehydrated and received an EGD and had subsequent removal and replacement of PEG tube with new tube. He is doing well and after observing a feed on his own we discharged home with instructions on when to return to medical care. Patient needs only routine follow up provided his PEG continues to function well. Total Time Total Time Spent Total Time Spent (In Minutes): 15 Discharge Plan Discharge Items Patient Disposition: Home - Self-Care Reason For Visit: PEG TUBE MALPOSITION,NAUSEA,VOMITING Discharge Diagnosis: PEG tube malpositioning Condition on Discharge: Fair Activity: Per Instructions section Non-emergency contact: Primary Care Provider Call non-emergency contact if: you have any medication questions and your symptoms worsen Follow-up/Referrals: Chapito Milner, [Primary Care Provider] - 01/15/20 2:30 pm Diet: Other - See Diet Comment Addtl Attending Provider Instructions: Mr. boss, It was a pleasure meeting you and taking care of you for this issue. Your PEG tube was malpositioned and partially blocking the exit of your stomach which was causing you to have increased pressure, vomiting, and abdominal pain. This has been corrected with a new PEG tube and I expect you to continue to do well. If you were to have a return of these symptoms please call your pattern finisher right away and feel free to return to our emergency room anytime should the need arise. As you have been doing well and feeding yourself through the tube without difficulty we feel you are safe to return home and resume your usual feeding and medication regimen. Incidentally we found a small cyst like lesion on your kidney, we do not know what this is, but I would recommend your PCP schedule you for a renal ultrasound to further characterize this lesion to make sure it is not something potentially harmful. I will leave instructions for your pcp to investigate this further. Pending Studies at Discharge: No Stand-Alone Forms: My [facility] virocyt, Smoking Cessation Medications and DC Order Prescriptions: Continued Symbicort 160-4.5 mcg/actuation HFA aerosol inhaler 2 puffs INH BID RF: 0 Benefiber Sugar Free (dextrin) 3 gram/3.8 gram powder 1.5 gm PO DAILY PRN (Reason: constipation) RF: 0 loperamide [Imodium A-D] 1 mg/7.5 mL liquid 2 mg feeding tube Q4H PRN (Reason: Diarrhea) RF: 0 sertraline 100 mg tablet 100 mg feeding tube DAILY RF: 0 lansoprazole 30 mg capsule,delayed release(DR/EC) 30 mg feeding tube DAILY RF: 0 levothyroxine 137 mcg capsule 137 mcg feeding tube DAILY RF: 0 (DME) Oxygen Home Liters Per Minute See Dose Instructions .ROUTE .MEDSUPPLY Qty: 1 RF: 0 oxycodone 5 mg capsule 10 mg feeding tube Q6 RF: 0 mirtazapine 45 mg tablet 45 mg feeding tube DAILY Qty: 30 RF: 2 magnesium oxide 420 mg Tablet 420 mg Feeding Tube DAILY RF: 0 ipratropium-albuterol 0.5 mg-3 mg(2.5 mg base)/3 mL Solution For Nebulization 3 ml INHALATION QID RF: 0 potassium chloride 40 mEq/15 mL Liquid 40 meq Feeding Tube DAILY RF: 0 fentanyl 25 mcg/hr Patch 72 Hour 1 patch TRANSDERMAL Q72H RF: 0 loratadine 10 mg Tablet 10 mg Feeding Tube DAILY PRN (Reason: Allergic Reaction) RF: 0 ipratropium-albuterol 20-100 mcg/actuation Mist 1 puff INHALATION QID RF: 0 Nutren 2.0 0.08 gram-2 kcal/mL Liquid 2 can Feeding Tube BID RF: 0 buspirone 5 mg tablet 5 mg Feeding Tube BID RF: 0 gabapentin 300 mg capsule 300 mg Feeding Tube BID RF: 0 azithromycin [Zithromax] 250 mg tablet 500 mg feeding tube UD RF: 0 aspirin 81 mg Tablet,Chewable 81 mg G-tube QAM Qty: 90 RF: 0 Discharge Orders: Discharge Order (Routine); Ordered 01/10/20 Ordered By: Andrew Wilde/Other Patient Handouts: Abdominal Pain, COPD Using Inhalers, Anatomy Digestive System Admission Data Admit Date/Time: 01/09/20 20:05 Attending Provider: Mary Aldridge Admit Provider: Amanda Masters Primary Care Provider: Chapito Milner Other Providers: Amanda Masters ; Zhanna Gonsalez ; Dari Aguila Other Interventions: Discharge Summary Assessment (RN) Last Done: 01/10/20 16:35 DC Date/Time DO NOT enter until pt leaves facility: 01/10/20 17:40 Supervising Physician Co-Signing Physician Notes Resident Physician Supervision Note: I independently interviewed and examined the patient and verified the abebe history and physical, reviewed labs and image studies, discussed the case with the resident Dr. Tejeda and agree with the findings and care plan. Resident Activity Tracking Resident Involvement: Resident Care Provided Care Provided: Adult Hospital Medicine
[2020-01-10] MEDS ORDERED: GABAPENTIN 300 MG CAP PO SCH (21:00)
[2020-01-10] MEDS ORDERED: PATIENT'S OWN ENTERAL FEEDING PEG SCH (21:00)
[2020-01-11] MEDS ORDERED: MAGNESIUM OXIDE 400 MG TAB PO SCH (09:00)
[2020-01-11] MEDS ORDERED: fentaNYL 25 MCG/HR TDSY TD SCH (09:00)
[2020-01-13] MEDS ORDERED: fentaNYL 25 MCG/HR TDSY TD SCH (14:00)
== END 2020-01-10 17:40 | disposition home or self-care (01) | DRG 908 ==
LOC: ED 14:01 → SUATTDRO 20:05 → 3E 20:05

== ENCOUNTER 2020-01-30 00:56 | Inpatient (IN) ==
[2020-01-30 01:19] LABS: Basophils # (auto) 0.03 K/uL (0-0.2); Basophils % (auto) 0.5 %; Eosinophils # (auto) 0.03 K/uL (0-0.5); Eosinophils % (auto) 0.5 %; Hematocrit (blood only) 36.2 % (42-52); Hemoglobin 11.8 g/dL (14.0-18.0); Immature Granulocytes # (auto) 0.01 K/uL (0.00-0.02); Immature Granulocytes % (auto) 0.2 %; Lymphocytes # (auto) 0.67 K/uL (1.2-3.4); Lymphocytes % (auto) 11.6 %; Mean Corpuscular Hemoglobin 28.4 pg (25-34); Mean Corpuscular Hgb Conc 32.6 g/dL (32-36); Mean Corpuscular Volume 87.2 fL (80-100); Mean Platelet Volume 9.2 fL (7.4-10.4); Monocytes # (auto) 0.47 K/uL (0.11-0.59); Monocytes % (auto) 8.2 %; Neutrophils # (auto) 4.55 K/uL (1.4-6.5); Platelet Count 313 K/uL (130-400); RDW Coefficient of Variation 13.7 % (11.5-14.5); RDW Standard Deviation 43.5 fL (36.4-46.3); Red Blood Count 4.15 M/uL (4.7-6.1); White Blood Count 5.76 K/uL (4.8-10.8)
[2020-01-30 01:35] LABS: Prothrombin Time 10.1 Seconds (9.0-12.0)
[2020-01-30 01:36] LABS: Alanine Aminotransferase 13 U/L (12-78); Albumin Level 3.8 gm/dl (3.4-5.0); Aspartate Aminotransferase 12 U/L (15-37); BUN Creatinine Ratio 20.8 (10-20); Blood Urea Nitrogen 14 mg/dl (7-18); Calcium 9.4 mg/dl (8.5-10.1); Carbon Dioxide 27 mmol/L (21-32); Chloride 104 mmol/L (98-107); Creatinine Clr Calc Pharmacy 106.5 ml/min; Est GFR (African American) 114.5; Est GFR (Non-African American) 98.8; Glucose 128 mg/dl (70-99); Lipase 78 U/L (73-393); Potassium 3.4 mmol/L (3.5-5.1); Sodium 138 mmol/L (136-145)
[2020-01-30 01:41] LABS: Albumin Globulin Ratio 0.9 (0.9-2); Alkaline Phosphatase 90 U/L (45-117); Bilirubin,Total 0.3 mg/dl (0.2-1); NT Pro B Type Natriuretic Pept 695 pg/ml (0-900); Total Protein 7.8 gm/dl (6.4-8.2); Troponin I < 0.015 ng/ml (0-0.045)
--- NOTE | 2020-01-30 01:57 | Emergency Department Note ---
History of Present Illness General Chief complaint: Respiratory Problems Stated complaint: RESPIRATORY PROBLEMS Time Seen by Provider: 01/30/20 01:06 Source: patient Mode of arrival: EMS Limitations: no limitations History of Present Illness Provider complaint: Increased shortness of breath Onset (ago): day(s) 1 Location: chest Radiation: non-radiation Severity: mild Pain Consistency: + constant Exacerbated By: + movement Associated symptoms: + fever/chills and + shortness of breath Treatments prior to arrival: none This is a 69-year-old male with extensive past pulmonary history who presents via EMS due to increased shortness of breath today. Patient states he began noticing that he was slightly more short of breath than usual earlier in the day. Patient states he also began to develop a sense of chest tightness, worse on the right. Patient does have a prior history of lung cancer and was recently told that the cancer did recur in another area of his lung. Patient was scheduled to see his developer analyst later this week. Patient does wear oxygen chronically at home. States today he actually tried to titrate up his oxygen to between 3-1/2 and 4 L/min to see if that would help with his shortness of breath. Patient states his shortness of breath is worse with exertion. Patient does check his pulse ox at home, did not notice any significant drop even with exertion or after turning up his home oxygen levels. Patient does already use azithromycin 3 times a week prophylactically, is not on chronic steroids. He states the only other recent medication change was the addition of another inhaler that he takes once a day. Patient states he last used his albuterol treatments at 4 PM and then again at 8 PM, stating that they still help, although it feels like the effects wear off sooner than they typically would have. Patient denies any known sick contact. No known exposure to any coronavirus positive individual. Pt seen during a time of high acuity and national emergency pandemic while wearing PPE. Home Medications Home Medications Medication Instructions Recorded Confirmed Type Nutren 2.0 2 can FEEDING TUBE BID 05/11/18 01/30/20 History fentanyl 1 patch TRANSDERMAL Q72H 05/11/18 01/30/20 History ipratropium-albuterol 1 puff INHALATION QID 05/11/18 01/30/20 History loratadine 10 mg FEEDING TUBE DAILY PRN 05/11/18 01/30/20 History magnesium oxide 420 mg FEEDING TUBE DAILY 05/11/18 01/30/20 History potassium chloride 40 meq FEEDING TUBE DAILY 05/11/18 01/30/20 History budesonide-formoterol HFA 160 2 puffs INH BID 02/15/19 01/30/20 History mcg-4.5 mcg/actuation aerosol inhaler buspirone 5 mg tablet 5 mg FEEDING TUBE BID 02/15/19 01/30/20 History loperamide 1 mg/7.5 mL oral liquid 2 mg FEEDING TUBE Q4H PRN 02/15/19 01/30/20 History wheat dextrin 3 gram/3.8 gram oral 1.5 gm PO DAILY PRN gm 02/15/19 01/30/20 History powder Oxygen Home #1 ea 05/19/19 01/23/20 Rx lansoprazole 30 mg capsule,delayed 30 mg FEEDING TUBE DAILY 05/19/19 01/30/20 History release levothyroxine 137 mcg capsule 137 mcg FEEDING TUBE DAILY 05/19/19 01/30/20 History sertraline 100 mg tablet 100 mg FEEDING TUBE DAILY tab 05/19/19 01/30/20 History gabapentin 300 mg capsule 300 mg FEEDING TUBE BID cap 07/10/19 01/30/20 History oxycodone 5 mg capsule 10 mg FEEDING TUBE Q6 cap 07/10/19 01/30/20 History azithromycin [Zithromax] 500 mg FEEDING TUBE UD 12/18/19 01/30/20 History mirtazapine 45 mg tablet 45 mg FEEDING TUBE DAILY #30 tab 12/20/19 01/30/20 Rx ipratropium 0.5 mg-albuterol 3 mg 3 ml INHALATION TID ml 01/15/20 01/30/20 History (2.5 mg base)/3 mL nebulization soln Allergies Allergy/AdvReac Type Severity Reaction Status Date / Time NSAIDS (Non-Steroidal AdvReac Mild upset Verified 01/30/20 02:36 Anti-Inflamma stomach Past Med/Surg History Medical History (Updated 01/31/20 @ 03:17 by Barbi Post DO) Anxiety Cancer of supraglottis (Resolved) "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 Radiation completed 02/28/2010 received 7200 cGy Finding of asymmetry of larynx on the right. 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 Radiation completed 02/28/2010 received 7200 cGy Finding of asymmetry of larynx on the right. Plan for laryngoscopy and biopsy 01/27/2017 " Cervical stenosis of spinal canal (Resolved) Chronic low back pain (Chronic) "[facility]" COPD (chronic obstructive pulmonary disease) (Chronic) "is on home oxygen" Depression Hypothyroidism (Chronic) Insomnia Lung cancer (Chronic 10/04/17) "Status post bronchoscopy and biopsy 06/03/2016 right upper lobectomy and lymph node dissection 06/25/2016 Squamous cell carcinoma Stage pT1b pN0M0 Development of a left lower lobe pulmonary nodule Status post bronchoscopy and biopsy pathology nondiagnostic 06/25/2016 Status post SBRT completed 02/05/2017. 5 fractions were given for a total of 5000 cGy. Recheck PET/CT October 04, 2017 revealing right lower lobe nodule with FDG avidity Status post bronchoscopy and biopsies October 28, 2017 Node biopsies negative, bronchial washings negative Status post lung nodule clinic discussion and consensus for stereotactic radiation therapy Status post completion of stereotactic body radiation therapy November 26, 2017. He received 5000 cGy" On 11/05/17 11:37 Sirisha You wrote "Status post bronchoscopy and biopsy 06/03/2016 right upper lobectomy and lymph node dissection 06/25/2016 Squamous cell carcinoma Stage pT1b pN0M0 Development of a left lower lobe pulmonary nodule Status post bronchoscopy and biopsy pathology nondiagnostic 06/25/2016 Status post SBRT completed 02/05/2017. 5 fractions were given for a total of 5000 cGy. Recheck PET/CT October 04, 2017 revealing right lower lobe nodule with FDG avidity Status post bronchoscopy and biopsies October 28, 2017 Node biopsies negative, bronchial washings negative Status post lung nodule clinic discussion and consensus for stereotactic radiation therapy" On 02/18/17 10:09 Sirisha You wrote "Status post bronchoscopy and biopsy 06/03/2016 right upper lobectomy and lymph node dissection 06/25/2016 Squamous cell carcinoma Stage pT1b pN0M0 Development of a left lower lobe pulmonary nodule Status post bronchoscopy and biopsy pathology nondiagnostic 06/25/2016 Status post SBRT completed 02/05/2017. 5 fractions were given for a total of 5000 cGy." On 01/07/17 09:52 Sirisha You wrote "Status post bronchoscopy and biopsy 06/03/2016 right upper lobectomy and lymph node dissection 06/25/2016 Squamous cell carcinoma Stage pT1b pN0M0 Development of a left lower lobe pulmonary nodule Status post bronchoscopy and biopsy pathology nondiagnostic 06/25/2016" On 01/07/17 09:51 Sirisha You wrote "Status post bronchoscopy and biopsy 06/03/2016 right upper lobectomy and lymph node dissection 06/25/2016 Squamous cell carcinoma Stage pT1b pN0M0 Development of a left lower lobe pulmonary nodule" Mass of lower lobe of left lung Oxygen dependent (Acute) Presence of externally removable percutaneous endoscopic gastrostomy (PEG) tube (~2019) Radiation fibrosis of lung Surgical History H/O cervical spine surgery (Acute) H/O neck surgery (Acute) right side Percutaneous endoscopic gastrostomy status (Acute) S/P lobectomy of lung (Resolved) Family History Other No pertinent family history Denies family history of Ovarian cancer Prostate cancer Breast cancer Lung cancer Colorectal cancer Social History Preferred Language: Marshallese Communication Ability: Effective Visual Impairment: Limited Hearing Ability: Normal Real Time Operator Required: No Beliefs That Will Affect Care: None marital status: Single Current Living Situation: Family and Significant Other current occupational status: retired Other Information That Helps Us Care for You: No Feels Safe at Home: Yes Safety Concerns: Feels Safe At This Time Smoking Status: Former smoker Do You Dip or Chew Tobacco: No ; Second Hand Exposure: No ; Tobacco Cessation Education Requested by Patient: No Hx Alcohol Use: No Hx Substance Use: No caffeine: No Dental Care, Regularly: Yes Physical Activity Frequency: Does not Exercise Seatbelt Use: always Sunscreen Use: Yes Review of Systems See HPI for pertinent positives & negatives. and A total of 10 systems reviewed and were otherwise negative Physical Exam Vital Signs Vital Signs - 24 hr 01/30/20 03:01 01/30/20 04:00 01/30/20 04:30 Pulse Rate 82 78 77 Pulse Rate from SpO2 Sensor 82 78 77 Respiratory Rate 20 21 17 Blood Pressure 126/66 116/54 L 134/66 Blood Pressure Mean 78 76 94 Pulse Oximetry 98 97 97 01/30/20 05:00 01/30/20 05:30 01/30/20 06:00 Pulse Rate 71 79 Pulse Rate from SpO2 Sensor 71 78 72 Respiratory Rate 19 12 Blood Pressure 140/67 141/66 H 141/66 H Blood Pressure Mean 89 98 90 Pulse Oximetry 98 96 95 GENERAL: alert, well appearing, well nourished, no distress, non-toxic EYE EXAM: normal conjunctiva, PERRL and EOM's grossly intact OROPHARYNX: no exudate, no erythema, lips, buccal mucosa, and tongue normal and mucous membranes are moist NECK: supple, no nuchal rigidity, no adenopathy, non-tender LUNGS: Decreased bilaterally, worse on the right due to prior lobectomy. Normal chest wall mechanics, coarse breath sounds on the left, no definitive wheezes/rhonchi/rales. HEART: no murmurs, S1 normal and S2 normal ABDOMEN: abdomen soft, non-tender, normo-active bowel sounds, no masses, no rebound or guarding. PEG tube in place with no surrounding erythema, drainage, or discharge. BACK: Back is symmetrical on inspection and there is no deformity, no midline tenderness, no CVA tenderness. SKIN: no rashes and no bruising UPPER EXTREMITIES: upper extremities are grossly normal. FROM, nml pulses b/l. LOWER EXTREMITIES: No pitting edema. FROM, nml pulses b/l. NEURO EXAM: Normal sensorium, cranial nerves II-XII grossly intact, normal speech, no gross weakness of arms, no gross weakness of legs. Gross sensation intact. Course Course 033: Patient updated on all results. Patient states he feels like his breathing is at its baseline at rest but with any exertion he still feels markedly more dyspneic even on increased oxygen. We discussed all results at bedside. We discussed possible differential diagnosis of his symptoms. We did also review his recent evaluation and admission several weeks ago. Given severity of symptoms as well as risk factors for cardiac etiology and known underlying pulmonary pathology, we discussed additional inpatient observation and patient was in agreement. 0415: Case discussed with hospitalist. Administered Medications Albuterol (Duoneb) 3 ml INH QIDR [facility] Stop: 02/29/20 14:59 Last Admin: 01/30/20 19:16 Dose: 3 ml Documented by: [id number] Admin: 01/30/20 15:13 Dose: 3 ml Documented by: [id number] Buspirone HCl (Buspar) 5 mg PEG BID [facility] Stop: 02/29/20 08:59 Last Admin: 01/30/20 19:52 Dose: 5 mg Documented by: [id number] Admin: 01/30/20 10:04 Dose: 5 mg Documented by: [id number] Fluticasone/Vilanterol (Breo Ellipta 100/25 Mcg Inh) 1 puffs INH DAILY [facility]; Protocol Stop: 02/29/20 09:14 Last Admin: 01/30/20 10:18 Dose: 1 puffs Documented by: [id number] Gabapentin (Neurontin) 300 mg PO BID [facility] Stop: 02/29/20 08:59 Last Admin: 01/30/20 19:52 Dose: 300 mg Documented by: [id number] Admin: 01/30/20 10:04 Dose: 300 mg Documented by: [id number] Guaifenesin (Robitussin Sugar Free) 200 mg PEG QID [facility] Stop: 02/29/20 13:44 Last Admin: 01/30/20 19:52 Dose: 200 mg Documented by: [id number] Admin: 01/30/20 16:54 Dose: 200 mg Documented by: [id number] Admin: 01/30/20 14:44 Dose: Not Given Documented by: [id number] Lansoprazole (Prevacid) 30 mg PEG DAILY [facility] Stop: 02/29/20 09:14 Last Admin: 01/30/20 10:04 Dose: 30 mg Documented by: [id number] Levothyroxine Sodium (Levothyroxine Sodium) 137 mcg PO DAILYBB [facility] Stop: 02/29/20 09:14 Last Admin: 01/30/20 10:06 Dose: 137 mcg Documented by: [id number] Magnesium Oxide (Mag-Ox) 400 mg PEG DAILY [facility]; Protocol Stop: 07/23/20 09:14 Last Admin: 01/30/20 10:05 Dose: 400 mg Documented by: [id number] Mirtazapine (Remeron Solutab) 45 mg PO DAILY [facility] Stop: 02/29/20 09:14 Last Admin: 01/30/20 10:05 Dose: 45 mg Documented by: [id number] Miscellaneous (Fentanyl Patch Check Placement) 1 ea N/A QS [facility] Stop: 02/29/20 08:27 Last Admin: 01/31/20 00:28 Dose: 1 ea Documented by: [id number] Admin: 01/30/20 16:55 Dose: 1 ea Documented by: [id number] Admin: 01/30/20 10:03 Dose: 1 ea Documented by: [id number] Nutritional Formula (Patient's Own Enteral Feeding) 0 ml PEG BID [facility] Stop: 02/29/20 09:14 Last Admin: 01/30/20 19:53 Dose: 500 ml Documented by: [id number] Admin: 01/30/20 10:30 Dose: Not Given Documented by: [id number] Oxycodone HCl (Roxicodone Immediate Rel) 10 mg PEG Q6 [facility] Stop: 02/29/20 11:59 Last Admin: 01/31/20 00:27 Dose: 10 mg Documented by: [id number] Admin: 01/30/20 17:00 Dose: 10 mg Documented by: [id number] Admin: 01/30/20 12:43 Dose: 10 mg Documented by: [id number] Potassium Chloride (Arely Ciel Elix) 40 meq PEG DAILY [facility] Stop: 02/29/20 09:14 Last Admin: 01/30/20 10:05 Dose: 40 meq Documented by: [id number] Prednisone (Prednisone) 40 mg PO DAILY [facility] Stop: 02/29/20 16:44 Last Admin: 01/30/20 17:47 Dose: 40 mg Documented by: [id number] Sertraline HCl (Zoloft) 100 mg PEG DAILY [facility] Stop: 02/29/20 08:59 Last Admin: 01/30/20 10:04 Dose: 100 mg Documented by: [id number] Umeclidinium [place] (Incruse Ellipta) 1 puffs INH DAILY [facility] Stop: 02/29/20 09:29 Last Admin: 01/30/20 10:17 Dose: 1 puffs Documented by: [id number] Discontinued Medications Albuterol (Duoneb) 3 ml NEB NOW STA Stop: 01/30/20 02:22 Last Admin: 01/30/20 02:50 Dose: 3 ml Documented by: [id number] Albuterol (Duoneb) 3 ml INH TID [facility] Stop: 02/29/20 08:59 Last Admin: 01/30/20 10:34 Dose: Not Given Documented by: [id number] Albuterol (Combivent Respimat) 1 puffs INH QID [facility] Stop: 02/29/20 08:59 Last Admin: 01/30/20 10:34 Dose: Not Given Documented by: [id number] Enoxaparin Sodium (Lovenox) 40 mg SQ NOW ONE Stop: 01/30/20 16:01 Last Admin: 01/30/20 16:56 Dose: 40 mg Documented by: [id number] Ioversol (Optiray 320 125ml) 125 ml IV ONCE PRN PRN Reason: Interaction Checking Stop: 02/03/20 03:45 Last Admin: 01/30/20 03:46 Dose: 91 ml Documented by: [id number] Mirtazapine (Remeron) 45 mg GT NOW ONE Stop: 01/30/20 04:56 Last Admin: 01/30/20 05:04 Dose: 45 mg Documented by: [id number] Oxycodone HCl (Roxicodone Immediate Rel) 10 mg PEG NOW STA Stop: 01/30/20 03:16 Last Admin: 01/30/20 03:25 Dose: 10 mg Documented by: [id number] Oxycodone HCl (Roxicodone Immediate Rel) 5 mg PEG NOW STA Stop: 01/30/20 09:44 Last Admin: 01/30/20 10:06 Dose: 5 mg Documented by: [id number] Medical Decision Making Differential Diagnosis Differential diagnoses includes but is not limited to pneumonia, bronchitis, COPD/Asthma exacerbation, pneumothorax, pulmonary embolism, congestive heart failure, acute coronary syndrome Medical Records Attestation: I reviewed the patient's medical records. Home Medications Current Medication List: was personally reviewed by me Laboratory Data Attestation: I reviewed the patient's lab results. Result diagrams: 01/30/20 01:05 01/30/20 01:05 Lab Results 01/30/20 01/30/20 01/30/20 Range/Units 01:05 01:05 01:05 WBC 5.76 (4.8-10.8) K/uL RBC 4.15 L (4.7-6.1) M/uL Hgb 11.8 L (14.0-18.0) g/dL Hct 36.2 L (42-52) % MCV 87.2 (80-100) fL MCH 28.4 (25-34) pg MCHC 32.6 (32-36) g/dL RDW Std Deviation 43.5 (36.4-46.3) fL RDW Coeff of Stephanie 13.7 (11.5-14.5) % Plt Count 313 (130-400) K/uL MPV 9.2 (7.4-10.4) fL Immature Gran % (Auto) 0.2 % Neut % (Auto) 79.0 % Lymph % (Auto) 11.6 % [place] % (Auto) 8.2 % Eos % (Auto) 0.5 % Baso % (Auto) 0.5 % Neut # (Auto) 4.55 (1.4-6.5) K/uL Lymph # (Auto) 0.67 L (1.2-3.4) K/uL [place] # (Auto) 0.47 (0.11-0.59) K/uL Eos # (Auto) 0.03 (0-0.5) K/uL Baso # (Auto) 0.03 (0-0.2) K/uL Immature Gran # (Auto) 0.01 (0.00-0.02) K/uL PT 10.1 (9.0-12.0) Seconds INR 1.0 (0.9-1.1) Sodium 138 (136-145) mmol/L Potassium 3.4 L (3.5-5.1) mmol/L Chloride 104 (98-107) mmol/L Carbon Dioxide 27 (21-32) mmol/L Anion Gap 7.0 (3-11) BUN 14 (7-18) mg/dl Creatinine 0.68 (0.6-1.4) mg/dl Est Cr Clr Drug Dosing 106.5 ml/min Est GFR ( Amer) 114.5 Est GFR (Non-Af Amer) 98.8 BUN/Creatinine Ratio 20.8 H (10-20) Glucose 128 H (70-99) mg/dl Calcium 9.4 (8.5-10.1) mg/dl Magnesium 2.0 (1.8-2.4) mg/dl Total Bilirubin 0.3 (0.2-1) mg/dl AST 12 L (15-37) U/L ALT 13 (12-78) U/L Alkaline Phosphatase 90 (45-117) U/L Troponin I < 0.015 (0-0.045) ng/ml NT-Pro-B Natriuret Pep 695 (0-900) pg/ml Total Protein 7.8 (6.4-8.2) gm/dl Albumin 3.8 (3.4-5.0) gm/dl Globulin 4.0 (2.5-4.0) gm/dl Albumin/Globulin Ratio 0.9 (0.9-2) Lipase 78 (73-393) U/L Imaging Data My Impression: X-ray: I interpreted the following studies. Chest: A single view study of the chest was reviewed and was negative for cardiomegaly, focal infiltrate, effusion, pulmonary edema, or wide mediastinum. Hyperinflation noted. Postsurgical changes noted on the right. Slightly increased markings along the left hilum. Due to PACS system being down, unable to compare this to a prior study. Radiologist's Impression: CTA chest: Extensive emphysematous changes. Left hilar peribronchial thickening with extensive irregular consolidation in the left lower lobe are stable relative to December 18, 2019. More mild infiltrates in the left upper lobe appear grossly stable. Postsurgical distortion in the upper aspect of the right chest is also stable. No evidence of pulmonary emboli. Radiologist: Abdiaziz Elizabeth MD ECG Data Attestation: I personally reviewed and interpreted this ECG as follows: Indication: + SOB/dyspnea Rate (beats per minute): 99 Rhythm: + normal sinus ECG Intervals/blocks: + Normal QRS and + Prolonged QT ECG [place]: + Left axis deviation ECG ST segments: + Nonspecific ST abnormalities Blood Pressure Blood Pressure Findings: Elevated blood pressure Blood Pressure Disposition: further management by hospitalist TERRIE Duarte Patient presenting here due to increased shortness of breath. Patient with significant pulmonary history including lung cancer with recent recurrence. Patient does chronically wear oxygen at home usually 3 L/min but given his increased dyspnea recently this was increased to 3.5-4. Patient does has risk factors for coronary artery disease. CT of the chest with otherwise negative for PE, focal consolidation, postobstructive pneumonia, increasing tumor burden, or effusion. First troponin negative and EKG unchanged here. No recent evaluation of cardiac pathology. Patient was hemodynamically stable and afebrile otherwise. No evidence of bacteremia/sepsis. I do not suspect dissection or acute vascular etiology. Discussed case with hospitalist for additional evaluation and possible consultation of pulmonology or cardiology. Patient is aware of all results and in agreement with plan at bedside. An order was placed for continuous cardiac monitoring. The monitor shows a rate of 80_ with _normal sinus_ rhythm. Impression & Plan WHYTE (dyspnea on exertion), Lung cancer, COPD (chronic obstructive pulmonary disease), Oxygen dependent Discharge Plan Visit Data *Final* Discharge Date/Time: 01/30/20 08:01 Chief Complaint: Respiratory Problems Stated Complaint: RESPIRATORY PROBLEMS ED Provider: Barbi Post Discharge Problem: WHYTE (dyspnea on exertion), Lung cancer, COPD (chronic obstructive pulmonary disease), Oxygen dependent Patient Disposition: Admitted As Inpatient Condition: Good Discharge Instructions Interventions: ED Discharge Assessment Last Done: 01/30/20 08:01
[2020-01-30] MEDS ORDERED: ALBUT/IPRATROP 3MG/0.5MG NEB 3 ML VIAL NEB STA (02:21)
[2020-01-30] MEDS ORDERED: OXYCODONE HCL 10 MG/0.5 ML UDP PEG STA (03:03)
[2020-01-30] MEDS ORDERED: OXYCODONE HCL IR 5 MG TAB (IMMEDIATE RELEASE) PEG STA ×2 (03:15→09:43)
[2020-01-30] MEDS ORDERED: OPTIRAY 320 125ml IV PRN (03:46)
[2020-01-30] MEDS ORDERED: MIRTAZAPINE TAB 15 MG TAB GT ONE (04:55)
--- NOTE | 2020-01-30 06:20 | History & Physical Report ---
Date of Service January 30, 2020 History of Present Illness Primary Care Provider: Chapiot Milner, DO 69 yo M with PMH lung and supraglottic cancer s/p lobectomy, chemotherapy and radiation, 3L O2 dependent COPD admitted for shortness of breath. States this AM, he had an episode of chest tightness associated with the feeling of clamminess, sweats. His 02 sat requirement was only up to 3.5L, baseline of 3L. Denies any chest pain, N/V. Allergies Allergy/AdvReac Type Severity Reaction Status Date / Time NSAIDS (Non-Steroidal AdvReac Mild upset Verified 01/30/20 02:36 Anti-Inflamma stomach Home Medications Home Medications Medication Instructions Recorded Confirmed Type Nutren 2.0 2 can FEEDING TUBE BID 05/11/18 01/30/20 History fentanyl 1 patch TRANSDERMAL Q72H 05/11/18 01/30/20 History loratadine 10 mg FEEDING TUBE DAILY PRN 05/11/18 01/30/20 History magnesium oxide 420 mg FEEDING TUBE DAILY 05/11/18 01/30/20 History potassium chloride 40 meq FEEDING TUBE DAILY 05/11/18 01/30/20 History budesonide-formoterol HFA 160 2 puffs INH BID 02/15/19 01/30/20 History mcg-4.5 mcg/actuation aerosol inhaler buspirone 5 mg tablet 5 mg FEEDING TUBE BID 02/15/19 01/30/20 History loperamide 1 mg/7.5 mL oral liquid 2 mg FEEDING TUBE Q4H PRN 02/15/19 01/30/20 History wheat dextrin 3 gram/3.8 gram oral 1.5 gm PO DAILY PRN gm 02/15/19 01/30/20 History powder Oxygen Home #1 ea 05/19/19 01/23/20 Rx lansoprazole 30 mg capsule,delayed 30 mg FEEDING TUBE DAILY 05/19/19 01/30/20 History release levothyroxine 137 mcg capsule 137 mcg FEEDING TUBE DAILY 05/19/19 01/30/20 History sertraline 100 mg tablet 100 mg FEEDING TUBE DAILY tab 05/19/19 01/30/20 History gabapentin 300 mg capsule 300 mg FEEDING TUBE BID cap 07/10/19 01/30/20 History oxycodone 5 mg capsule 10 mg FEEDING TUBE Q6 cap 07/10/19 01/30/20 History azithromycin [Zithromax] 500 mg FEEDING TUBE UD 12/18/19 01/30/20 History mirtazapine 45 mg tablet 45 mg FEEDING TUBE DAILY #30 tab 12/20/19 01/30/20 Rx ipratropium 0.5 mg-albuterol 3 mg 3 ml INHALATION TID ml 01/15/20 01/30/20 History (2.5 mg base)/3 mL nebulization soln ipratropium-albuterol 1 puff INHALATION QID PRN #1 01/31/20 01/30/20 Rx inhaler prednisone 10 mg FEEDING TUBE DIRECTED #60 01/31/20 Rx tab umeclidinium [Incruse Ellipta] 1 inh INHALATION DAILY #30 ea 01/31/20 Rx Past Med/Surg History Medical History (Updated 02/01/20 @ 00:02 by Background Daemon) Anxiety Cancer of supraglottis (Resolved) "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 Radiation completed 02/28/2010 received 7200 cGy Finding of asymmetry of larynx on the right. 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 Radiation completed 02/28/2010 received 7200 cGy Finding of asymmetry of larynx on the right. Plan for laryngoscopy and biopsy 01/27/2017 " Cervical stenosis of spinal canal (Resolved) Chronic low back pain (Chronic) "[facility]" COPD (chronic obstructive pulmonary disease) "is on home oxygen" Depression Hypothyroidism (Chronic) Insomnia Lung cancer (10/04/17) "Status post bronchoscopy and biopsy 06/03/2016 right upper lobectomy and lymph node dissection 06/25/2016 Squamous cell carcinoma Stage pT1b pN0M0 Development of a left lower lobe pulmonary nodule Status post bronchoscopy and biopsy pathology nondiagnostic 06/25/2016 Status post SBRT completed 02/05/2017. 5 fractions were given for a total of 5000 cGy. Recheck PET/CT October 04, 2017 revealing right lower lobe nodule with FDG avidity Status post bronchoscopy and biopsies October 28, 2017 Node biopsies negative, bronchial washings negative Status post lung nodule clinic discussion and consensus for stereotactic radiation therapy Status post completion of stereotactic body radiation therapy November 26, 2017. He received 5000 cGy" On 11/05/17 11:37 Sirisha You wrote "Status post bronchoscopy and biopsy 06/03/2016 right upper lobectomy and lymph node dissection 06/25/2016 Squamous cell carcinoma Stage pT1b pN0M0 Development of a left lower lobe pulmonary nodule Status post bronchoscopy and biopsy pathology nondiagnostic 06/25/2016 Status post SBRT completed 02/05/2017. 5 fractions were given for a total of 5000 cGy. Recheck PET/CT October 04, 2017 revealing right lower lobe nodule with FDG avidity Status post bronchoscopy and biopsies October 28, 2017 Node biopsies negative, bronchial washings negative Status post lung nodule clinic discussion and consensus for stereotactic radiation therapy" On 02/18/17 10:09 Sirisha You wrote "Status post bronchoscopy and biopsy 06/03/2016 right upper lobectomy and lymph node dissection 06/25/2016 Squamous cell carcinoma Stage pT1b pN0M0 Development of a left lower lobe pulmonary nodule Status post bronchoscopy and biopsy pathology nondiagnostic 06/25/2016 Status post SBRT completed 02/05/2017. 5 fractions were given for a total of 5000 cGy." On 01/07/17 09:52 Sirisha You wrote "Status post bronchoscopy and biopsy 06/03/2016 right upper lobectomy and lymph node dissection 06/25/2016 Squamous cell carcinoma Stage pT1b pN0M0 Development of a left lower lobe pulmonary nodule Status post bronchoscopy and biopsy pathology nondiagnostic 06/25/2016" On 01/07/17 09:51 Sirisha You wrote "Status post bronchoscopy and biopsy 06/03/2016 right upper lobectomy and lymph node dissection 06/25/2016 Squamous cell carcinoma Stage pT1b pN0M0 Development of a left lower lobe pulmonary nodule" Mass of lower lobe of left lung Oxygen dependent Presence of externally removable percutaneous endoscopic gastrostomy (PEG) tube (~2019) Radiation fibrosis of lung Surgical History H/O cervical spine surgery (Acute) H/O neck surgery (Acute) right side Percutaneous endoscopic gastrostomy status (Acute) S/P lobectomy of lung (Resolved) Family History Other No pertinent family history Denies family history of Ovarian cancer Prostate cancer Breast cancer Lung cancer Colorectal cancer Social History Preferred Language: Luxembourgish Communication Ability: Effective Visual Impairment: Limited Hearing Ability: Normal Plate Cleaner Required: No Beliefs That Will Affect Care: None marital status: Single Current Living Situation: Family and Significant Other current occupational status: retired Feels Safe at Home: Yes Smoking Status: Former smoker Second Hand Exposure: No ; Hx Alcohol Use: No Hx Substance Use: No caffeine: No Dental Care, Regularly: Yes Physical Activity Frequency: Does not Exercise Seatbelt Use: always Sunscreen Use: Yes Review of Systems Constitutional: + weight gain (since having PEG); no fever and no chills Eyes: no worsening vision Ear, Nose, Mouth, Throat: no nasal congestion and no sore throat Respiratory: no cough and no chest congestion Cardiovascular: + dyspnea and + dyspnea at rest; no chest pain and no palpitations Gastrointestinal: + diarrhea/loose stools; no nausea, no vomiting and no constipation Genitourinary: no dysuria Integumentary: no rash Neurologic: no headache(s) and no confusion Physical Exam Physical Exam: General: Alert, oriented. No acute distress, NC in nares Skin: No noted rashes or bruises Psych: Appropriate mood and affect Neuro: No gross deficits HEENT: NC/AT Chest: Nontender to palpation. CV: RRR, Normal s1, s2. Resp: Breath sounds coarse bilaterally, especially at bases. Abdomen: Soft, tender in lower abdomen quadrants. Extremities: No edema in lower extremities bilaterally. Results & Data Results & Data ([facility]) Vital Signs (Past 12 Hours) Vital Signs Temp Pulse Pulse Resp BP Pulse Ox 01/30/20 06:00 141/66 H 95 01/30/20 05:30 79 12 141/66 H 96 01/30/20 05:00 71 19 140/67 98 01/30/20 04:30 77 17 134/66 97 01/30/20 04:00 78 21 116/54 L 97 01/30/20 03:01 82 20 126/66 98 01/30/20 02:51 89 16 96 01/30/20 01:19 83 L 01/30/20 01:12 36.9 C 100 H 28 H 155/71 H 94 01/30/20 01:00 99 H 16 155/71 H 96 Code Status & VTE Plan VTE Prophylaxis Plan VTE Prophylaxis will be ordered: Yes Supervising Physician Co-Signing Physician Notes Attending addendum: I have physically seen this patient, have supervised the medical residents activities, and agree with the H&P unless as otherwise noted. Assessment and Plan: COPD exacerbation- Baseline nasal cannula is 3 L oxygen. Titrate to keep pulse ox about 92%. Duonebs every 4 hours while awake and every [address] scan with stable COPD findings Azithromycin 500 mg on Wednesday and Wednesday Continue usual inhalers Hypothyroidism- Continue levothyroxine 137 mcg daily Anxiety and insomnia- Continue sertraline, BuSpar and mirtazapine. GERD- Change lansoprazole to pantoprazole Remainder of orders and notations as noted Resident Activity Tracking Resident Involvement: Resident Care Provided Care Provided: Adult Hospital Medicine
--- NOTE | 2020-01-30 07:31 | XRay Report ---
SINGLE VIEW CHEST CLINICAL HISTORY: Dyspnea. FINDINGS: An AP, portable, upright chest radiograph is compared to study dated 01/09/2020 and correlate d with chest CT dated 12/18/2019. The cardiomediastinal silhouette is unremarkable noting atherosclero tic calcification of the thoracic aorta. Enlargement of the central pulmonary arteries suggests pulmo nary artery hypertension. Advanced emphysema and chronic interstitial thickening are similar to previ ous. Foci of parenchyma scarring are noted throughout both lungs. Atelectasis is seen at the lung bas es. There is a trace right pleural effusion. No airspace consolidation is identified typical for pneu monia. No pneumothorax is seen. The skeletal structures are osteopenic. The bony thorax is grossly in tact. Fusion hardware is noted in the lower cervical spine. IMPRESSION: 1. Advanced emphysema. 2. There is a small right pleural effusion. 3. Chronic parenchymal changes and foci of parenchymal scarring are similar to previous. ACT 112: Negative or not required by law. Electronically signed by: Alex Taylor M.D. 01/30/2020 7:30 AM
--- NOTE | 2020-01-30 08:10 | CT Scan Report ---
CHEST CTA for PULMONARY ARTERIES CT DOSE: 280.11 mGy.cm HISTORY: Cough. TECHNIQUE: Multiaxial CT images of the chest were performed following the intravenous administration of contrast to evaluate the pulmonary arteries. Maximal intensity projection images were also obtaine d. A dose lowering technique was utilized adhering to the principles of ALARA. COMPARISON STUDY: Chest CT 12/18/2019. FINDINGS: Normal caliber thoracic aorta with no evidence for dissection. The heart remains normal in size. Right posterior pleural thickening remains stable. No pleural or pericardial effusions. No fill ing defects within the pulmonary arteries to suggest pulmonary embolus. Multiple healing/healed right -sided rib fractures. No suspicious lytic or blastic osseous lesions. Limited views of the upper abdo men demonstrate a normal liver and spleen. Partially visualized percutaneous gastrostomy tube is note d. Approximately 80% focal narrowing within the mid right common carotid artery best seen on image 29 0. Stable prominent mediastinal lymph nodes. Normal esophagus. Emphysema. No pneumothorax. Prior righ t upper lobectomy is again noted. Opacified anterior right lower lobe bronchi remain unchanged. Left infrahilar/lower lobe irregular consolidation has slightly progressed. This is best in image 101 and measures 3.5 cm. Additional bandlike consolidation within the left lower lobe posteriorly is similar to the prior study. This could represent scarring or chronic atelectasis. Small right perihilar densi ty remains stable and also favors scarring. Interstitial thickening at the base of the bilateral lowe r lobes and tree-in-bud nodular opacities persist. This is also likely chronic. IMPRESSION: 1. No evidence for pulmonary embolus. 2. Postoperative changes as described above. 3. Multiple healing/healed right-sided rib fractures. No pneumothorax. 4. Emphysema. 5. Left infrahilar/lower lobe irregular consolidation has slightly progressed. This could represent a superimposed pneumonia. [address] follow-up recommended to ensure stability. 6. Additional bilateral lower lobe densities remain unchanged and favor scarring/atelectasis. ACT 112: Negative or not required by law. Electronically signed by: Gonzalo Lima M.D. 01/30/2020 8:09 AM
[2020-01-30] MEDS ORDERED: LOPERAMIDE LIQUID 120 ML BOTTLE PEG PRN (08:28)
[2020-01-30] MEDS ORDERED: LORATADINE 10 MG TAB PEG PRN (08:28)
[2020-01-30] MEDS ORDERED: WHEAT DEXTRIN PO PRN (08:28)
--- NOTE | 2020-01-30 08:30 | XRay Report ---
KUB CLINICAL HISTORY: Dyspnea. PEG tube. FINDINGS: An AP, portable, supine abdominal radiograph is compared to study dated 12/07/2019 and corre lated with abdominal CT dated 01/09/2020. There is a nonobstructed abdominal bowel gas pattern. A PEG t ube projects over the left upper quadrant. No evidence of intraperitoneal free air is seen on this [place] image. There is atherosclerotic calcification of the abdominal aorta. The skeletal structures ar e osteopenic and appear intact. There is lumbosacral spondylosis and scoliosis. IMPRESSION: 1. Nonobstructed abdominal bowel gas pattern. 2. A PEG tube is in place. Electronically signed by: Alex Taylor M.D. 01/30/2020 8:29 AM
[2020-01-30] MEDS ORDERED: ALBUT/IPRATROP 3MG/0.5MG NEB 3 ML VIAL INH SCH ×2 (09:00→13:00)
[2020-01-30] MEDS ORDERED: IPRATROPIUM BROMIDE/ALBUTEROL respimat INH INH SCH (09:00)
[2020-01-30] MEDS ORDERED: LEVOTHYROXINE SODIUM 137 MCG TABLET PO SCH (09:15)
[2020-01-30] MEDS: CHECK FENTANYL PATCH PLACEMENT SCH ×2 (10:03→16:55)
[2020-01-30] MEDS: GABAPENTIN 300 MG CAP PO SCH ×2 (10:04→19:52)
[2020-01-30] MEDS: SERTRALINE HCL 100 MG TABLET PEG SCH (10:04)
[2020-01-30] MEDS: LANSOPRAZOLE 30 MG SOLTAB PEG SCH (10:04)
[2020-01-30] MEDS: POTASSIUM CHLORIDE 20 MEQ/15 ML UDC PEG SCH (10:05)
[2020-01-30] MEDS: MIRTAZAPINE SOLTAB 15 MG PO SCH (10:05)
[2020-01-30] MEDS: MAGNESIUM OXIDE 400 MG TAB PEG SCH (10:05)
[2020-01-30] MEDS: UMECLIDINIUM BROMIDE 62.5MCG/BLISTER 7 PUFFS/INHALER INH SCH (10:17)
[2020-01-30] MEDS: FLUTICASONE/VILANTEROL 100/25MCG 14 PUFFS/INHALER INH SCH (10:18)
[2020-01-30] MEDS: PATIENT'S OWN ENTERAL FEEDING PEG SCH ×2 (10:30→19:53)
[2020-01-30] MEDS: OXYCODONE HCL IR 5 MG TAB (IMMEDIATE RELEASE) PEG SCH ×2 (12:43→17:00)
[2020-01-30 13:10] LABS: C Reactive Protein 0.64 mg/dl (0-0.29); Troponin I < 0.015 ng/ml (0-0.045)
--- NOTE | 2020-01-30 13:28 | Communication Note ---
Date of Service: January 30, 2020 Hospitalist Note: Evaluated patient about 12noon today. Resting comfortably on 3 L NC. Patient states that the dyspnea & other chest symptoms he had had yesterday are resolved. Mild cough only. Had had chills yesterday - resolved. No abdominal pain. No nausea/emesis. No sore throat or nasal congestion. Mentions his father is hospitalized but not with any infectious process. Exam - gen - NAD, a/o x 3 mouth - MMM, no thrush heart - RRR, s1 s2 lungs - CTA b/l; no rales; no wheeze; no increased WOB abd - soft NT ND BS+; PEG site clean ext - no edema procal 0 repeat troponin 0 sed rate 12 crp 0.6 CTA chest reviewed- no PE; LLL infiltrate - seen on prior studies (there has been concern that this is an area of recurrent cancer) Imp: 1. chronic hypoxic respiratory failure on home O2 - 3 L continuously - stable; 2nd to COPD; no COPD exacerbation at this time 2. acute dyspnea - resolved; mucous plug? other etiology? 3. h/o laryngeal ca 4. h/o lung ca with recurrence 5. chills - resolved; check u/a and urine cx; consider [employer] respiratory panel; no COVID risk factors other than frequent healthcare exposure 6. will repeat a 2-view cxr today 7. add robitussin liquid 200mg QID via PEG observe Bari Kennedy MD
[2020-01-30] MEDS: guaiFENesin SUGAR FREE 200 MG/10 ML UDC PEG SCH ×3 (14:44→19:52)
[2020-01-30] MEDS: ALBUT/IPRATROP 3MG/0.5MG NEB 3 ML VIAL INH SCH ×2 (15:13→19:16)
--- NOTE | 2020-01-30 15:49 | Electrocardiogram Report ---
Test Reason : Blood Pressure : / mmHG Vent. Rate : 099 BPM Atrial Rate : 099 BPM P-R Int : 156 ms QRS Dur : 086 ms QT Int : 384 ms P-R-T Axes : 078 -37 082 degrees QTc Int : 492 ms Poor data quality, interpretation may be adversely affected Normal sinus rhythm Possible Left atrial enlargement Left axis deviation Nonspecific ST abnormality Prolonged QT Abnormal ECG When compared with ECG of 09-JAN-2020 16:09, QRS axis Shifted left Criteria for Septal infarct are no longer Present Confirmed by Joshua Peters ([id number]) on 01/30/2020 3:49:20 PM Referred By: REFERRED SELF Confirmed By:Joshua Peters
[2020-01-30] MEDS ORDERED: ENOXAPARIN INJ 40 MG/0.4 ML SYR SQ ONE (16:00)
--- NOTE | 2020-01-30 16:44 | Pulmonary Consultation ---
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 Left lower lobe mass previously biopsied suggesting adenocarcinoma status post SBRT. I suspect that he has continued evolving radiation changes. Recommend a slow taper of prednisone. I will start him on 40 mg of prednisone and this could be tapered down further as an outpatient by Dr. Olea. Recommend PPI while on the steroid. Patient feels that he is back to his baseline he is currently on 2 to 3 L of oxygen. He is wishing to go home. I think it is reasonable for him to be discharged at this point. He does not have any evidence of significant infectious symptoms. His procalcitonin was negative. No need for antibiotics at this time. Continue home inhaler regimen. He will need further follow-up with oncology. Overall prognosis is poor. Thank you for the consult. (2) SOB (shortness of breath): (3) Mass of lower lobe of left lung: History of Present Illness Reason for Consultation: Shortness of breath with infiltrates. 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 Patient notes that he had significant night sweats last evening and had difficulty catching his breath. He denied any chest pain. He did have a nonproductive cough. He feels that his symptoms have resolved today. He wants to go home. He is normally on 3 L of oxygen. He has been on supplemental oxygen for the last [address] of the chest performed today demonstrated no evidence of pulmonary embolism, prior right upper lobectomy, and a left infrahilar lower lobe irregular consolidation that has slightly progressed since the last CT from 12/18/2019. Procalcitonin negative. No significant white count elevation. No significant fevers. Allergies Allergy/AdvReac Type Severity Reaction Status Date / Time NSAIDS (Non-Steroidal AdvReac Mild upset Verified 01/30/20 02:36 Anti-Inflamma stomach Home Medications Home Medications Medication Instructions Recorded Confirmed Type Nutren 2.0 2 can FEEDING TUBE BID 05/11/18 01/30/20 History fentanyl 1 patch TRANSDERMAL Q72H 05/11/18 01/30/20 History ipratropium-albuterol 1 puff INHALATION QID 05/11/18 01/30/20 History loratadine 10 mg FEEDING TUBE DAILY PRN 05/11/18 01/30/20 History magnesium oxide 420 mg FEEDING TUBE DAILY 05/11/18 01/30/20 History potassium chloride 40 meq FEEDING TUBE DAILY 05/11/18 01/30/20 History budesonide-formoterol HFA 160 2 puffs INH BID 02/15/19 01/30/20 History mcg-4.5 mcg/actuation aerosol inhaler buspirone 5 mg tablet 5 mg FEEDING TUBE BID 02/15/19 01/30/20 History loperamide 1 mg/7.5 mL oral liquid 2 mg FEEDING TUBE Q4H PRN 02/15/19 01/30/20 History wheat dextrin 3 gram/3.8 gram oral 1.5 gm PO DAILY PRN gm 02/15/19 01/30/20 History powder Oxygen Home #1 ea 05/19/19 01/23/20 Rx lansoprazole 30 mg capsule,delayed 30 mg FEEDING TUBE DAILY 05/19/19 01/30/20 History release levothyroxine 137 mcg capsule 137 mcg FEEDING TUBE DAILY 05/19/19 01/30/20 History sertraline 100 mg tablet 100 mg FEEDING TUBE DAILY tab 05/19/19 01/30/20 History gabapentin 300 mg capsule 300 mg FEEDING TUBE BID cap 07/10/19 01/30/20 History oxycodone 5 mg capsule 10 mg FEEDING TUBE Q6 cap 07/10/19 01/30/20 History azithromycin [Zithromax] 500 mg FEEDING TUBE UD 12/18/19 01/30/20 History mirtazapine 45 mg tablet 45 mg FEEDING TUBE DAILY #30 tab 12/20/19 01/30/20 Rx ipratropium 0.5 mg-albuterol 3 mg 3 ml INHALATION TID ml 01/15/20 01/30/20 History (2.5 mg base)/3 mL nebulization soln Patient History Medical History Anxiety Cancer of supraglottis (Resolved) "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 Radiation completed 02/28/2010 received 7200 cGy Finding of asymmetry of larynx on the right. 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 Radiation completed 02/28/2010 received 7200 cGy Finding of asymmetry of larynx on the right. Plan for laryngoscopy and biopsy 01/27/2017 " Cervical stenosis of spinal canal (Resolved) Chronic low back pain (Chronic) "[facility]" COPD (chronic obstructive pulmonary disease) (Chronic) "is on home oxygen" Depression Hypothyroidism (Chronic) Insomnia Lung cancer (Chronic 10/04/17) "Status post bronchoscopy and biopsy 06/03/2016 right upper lobectomy and lymph node dissection 06/25/2016 Squamous cell carcinoma Stage pT1b pN0M0 Development of a left lower lobe pulmonary nodule Status post bronchoscopy and biopsy pathology nondiagnostic 06/25/2016 Status post SBRT completed 02/05/2017. 5 fractions were given for a total of 5000 cGy. Recheck PET/CT October 04, 2017 revealing right lower lobe nodule with FDG avidity Status post bronchoscopy and biopsies October 28, 2017 Node biopsies negative, bronchial washings negative Status post lung nodule clinic discussion and consensus for stereotactic radiation therapy Status post completion of stereotactic body radiation therapy November 26, 2017. He received 5000 cGy" On 11/05/17 11:37 Sirisha You wrote "Status post bronchoscopy and biopsy 06/03/2016 right upper lobectomy and lymph node dissection 06/25/2016 Squamous cell carcinoma Stage pT1b pN0M0 Development of a left lower lobe pulmonary nodule Status post bronchoscopy and biopsy pathology nondiagnostic 06/25/2016 Status post SBRT completed 02/05/2017. 5 fractions were given for a total of 5000 cGy. Recheck PET/CT October 04, 2017 revealing right lower lobe nodule with FDG avidity Status post bronchoscopy and biopsies October 28, 2017 Node biopsies negative, bronchial washings negative Status post lung nodule clinic discussion and consensus for stereotactic radiation therapy" On 02/18/17 10:09 Sirisha You wrote "Status post bronchoscopy and biopsy 06/03/2016 right upper lobectomy and lymph node dissection 06/25/2016 Squamous cell carcinoma Stage pT1b pN0M0 Development of a left lower lobe pulmonary nodule Status post bronchoscopy and biopsy pathology nondiagnostic 06/25/2016 Status post SBRT completed 02/05/2017. 5 fractions were given for a total of 5000 cGy." On 01/07/17 09:52 Sirisha You wrote "Status post bronchoscopy and biopsy 06/03/2016 right upper lobectomy and lymph node dissection 06/25/2016 Squamous cell carcinoma Stage pT1b pN0M0 Development of a left lower lobe pulmonary nodule Status post bronchoscopy and biopsy pathology nondiagnostic 06/25/2016" On 01/07/17 09:51 Sirisha You wrote "Status post bronchoscopy and biopsy 06/03/2016 right upper lobectomy and lymph node dissection 06/25/2016 Squamous cell carcinoma Stage pT1b pN0M0 Development of a left lower lobe pulmonary nodule" Oxygen dependent Presence of externally removable percutaneous endoscopic gastrostomy (PEG) tube (~2019) Surgical History H/O cervical spine surgery (Acute) H/O neck surgery (Acute) right side Percutaneous endoscopic gastrostomy status (Acute) S/P lobectomy of lung (Resolved) Family History Other No pertinent family history Denies family history of Ovarian cancer Prostate cancer Breast cancer Lung cancer Colorectal cancer Social History Preferred Language: Monegasque Communication Ability: Effective Visual Impairment: Limited Hearing Ability: Normal Allied Health Teacher Required: No Beliefs That Will Affect Care: None marital status: Single Current Living Situation: Family and Significant Other current occupational status: retired Other Information That Helps Us Care for You: No Feels Safe at Home: Yes Safety Concerns: Feels Safe At This Time Smoking Status: Former smoker Do You Dip or Chew Tobacco: No ; Second Hand Exposure: No ; Tobacco Cessation Education Requested by Patient: No Hx Alcohol Use: No Hx Substance Use: No caffeine: No Dental Care, Regularly: Yes Physical Activity Frequency: Does not Exercise Seatbelt Use: always Sunscreen Use: Yes Review of Systems Review of Systems: All systems reviewed & are unremarkable except as noted in HPI & below Physical Exam Constitutional: Patient is thin and frail-appearing. Has a large mix. No apparent distress. Eyes: PERRL, conjunctivae normal, anicteric sclerae ENMT: external ear and nose normal, oropharynx normal Neck: trachea midline, no thyromegaly Respiratory: Very mild expiratory wheezes noted bilaterally. Cardiovascular: RRR, no murmur, no edema Gastrointestinal (Abdomen): PEG tube in place. Nontender, nondistended. Musculoskeletal: no cyanosis or clubbing, extremities motor strength 5/5 Skin: no rashes, warm and dry Neurologic: PERRL, EOMI, accommodation nl, no face palsy, no dysarthria Psychiatric: A+Ox3, euthymic affect Results & Data Results & Data ([facility]) Vital Signs (Past 12 Hours) Vital Signs Temp Pulse Pulse Resp BP BP BP 01/30/20 15:52 97.5 F L 77 20 149/77 H 01/30/20 15:13 82 18 01/30/20 11:00 97.9 F 74 18 154/73 H 01/30/20 09:47 72 01/30/20 08:23 97.5 F L 73 20 178/76 H 171/85 H 01/30/20 08:01 78 20 150/69 H 01/30/20 07:51 78 20 150/69 H 01/30/20 06:30 20 155/67 H 01/30/20 06:00 141/66 H 01/30/20 05:30 79 12 141/66 H 01/30/20 05:00 71 19 140/67 Pulse Ox 01/30/20 15:52 96 01/30/20 15:13 95 01/30/20 11:00 98 01/30/20 09:47 01/30/20 08:23 96 01/30/20 08:01 98 01/30/20 07:51 98 01/30/20 06:30 98 01/30/20 06:00 95 01/30/20 05:30 96 01/30/20 05:00 98 I personally reviewed prior laboratory data, chest imaging and previous notes. PG Care Time/CCT Total # of Minutes Spent Total Time Spent with Patient: Total time spent is greater than 50% in coordination of care (as documented) at patient's floor/unit and/or counseling patient: Coding Level of Care Code 87538 Initial Inpt Care Lvl 3 Diagnoses Radiation fibrosis of lung J70.1 SOB (shortness of breath) R06.02 Mass of lower lobe of left lung R91.8
[2020-01-30] MEDS: predniSONE 20 MG TAB PO SCH (17:47)
--- NOTE | 2020-01-30 19:21 | XRay Report ---
XR chest 2V PA/lateral CLINICAL HISTORY: LLL infiltrate; lung cancer; interval change , CT scan dated 02/06/2020 COMPARISON STUDY: 01/30/2020 FINDINGS: There is evidence for pulmonary emphysema. The cardiac and mediastinal contours remain stab le. There is persistent blunting of the right lateral costophrenic angle. There are nodular airspace opacities within the left lower lung zone measuring 5 cm in maximal diameter. These remain similar to the preceding study.[Right hilar prominence remains stable. IMPRESSION: 1. Advanced pulmonary emphysema 2. Stable left lower lung zone nodular opacities, infectious/inflammatory versus neoplastic. Short-te rm CT follow-up is recommended as was discussed in the CT scan report. 3. Right pleural thickening/fluid. ACT 112: Negative or not required by law. Electronically signed by: Gentry Tsang M.D. 01/30/2020 7:20 PM
[2020-01-30 19:38] LABS: Appearance Urine Clear (Clear); Bilirubin Urine Negative (Negative); Blood Urine Negative (Negative); Color Urine Yellow; Glucose Urine UA Negative (Negative); Ketones Urine Negative (Negative); Leukocyte Esterase Urine Negative (Negative); Nitrite Urine Negative (Negative); Protein Urine Negative (Negative); Specific Gravity Urine 1.022 (1.000-1.030); Urobilinogen Urine Negative (Negative); pH Urine >= 9.0 (4.5-7.5)
[2020-01-31] MEDS: OXYCODONE HCL IR 5 MG TAB (IMMEDIATE RELEASE) PEG SCH (00:27)
[2020-01-31] MEDS: CHECK FENTANYL PATCH PLACEMENT SCH ×2 (00:28→08:00)
[2020-01-31 07:21] VITALS: BP 154/82; TEMP 97.7
[2020-01-31] MEDS: ALBUT/IPRATROP 3MG/0.5MG NEB 3 ML VIAL INH SCH (07:26)
[2020-01-31 07:27] VITALS: O2SAT 97
--- NOTE | 2020-01-31 07:35 | Discharge Summary ---
Date of Service date of admission - January 30, 2020 date of discharge - January 31, 2020 Admission HPI Per Admitting Provider 69 yo M with PMH lung and supraglottic cancer s/p lobectomy, chemotherapy and radiation, 3L O2 dependent COPD admitted for shortness of breath. States this AM, he had an episode of chest tightness associated with the feeling of clamminess, sweats. His 02 sat requirement was only up to 3.5L, baseline of 3L. Denies any chest pain, N/V. Principal Diagnosis acute dyspnea - resolved; possibly mucous plugging vs dyspnea due to radiation fibrosis of left lung in setting of chronic hypoxic respiratory failure and lung cancer Discharge Exam Constitutional no acute distress and no altered mental status ENMT external ear and nose normal, oropharynx normal Respiratory no respiratory distress Auscultation: + rales (scant, LLL); no wheezes Cardiovascular Rate/Rhythm: regular rate and regular rhythm Heart Sounds: normal S1 and normal S2; no murmur Vessels: posterior tibial pulses present and dorsalis pedis pulses present; no JVD Extremities: no edema Gastrointestinal (Abdomen) normal bowel sounds, soft, nontender, no hepatosplenomegaly PEG tube in place - clean Skin no rashes, warm and dry Psychiatric A+Ox3, euthymic affect Discharge Data Allergies Allergy/AdvReac Type Severity Reaction Status Date / Time NSAIDS (Non-Steroidal AdvReac Mild upset Verified 01/30/20 02:36 Anti-Inflamma stomach Consultations Consult Pulmonology - Anotine Bauer MD Ordered Studies 01/30/20 02:45 CT angio chest PE protocol Urgent IMPRESSION: 1. No evidence for pulmonary embolus. 2. Postoperative changes as described above. 3. Multiple healing/healed right-sided rib fractures. No pneumothorax. 4. Emphysema. 5. Left infrahilar/lower lobe irregular consolidation has slightly progressed. This could represent a superimposed pneumonia. [address] follow-up recommended to ensure stability. 6. Additional bilateral lower lobe densities remain unchanged and favor scarring/atelectasis. 7. Approximately 80% focal narrowing within the mid right common carotid artery due to the atherosclerotic plaque. This could be further assessed with follow-up nonemergent carotid Doppler study. Hospital Course (1) WHYTE (dyspnea on exertion): Patient underwent cxr, CTA chest, and troponins while here. CXR and CTA chest failed to show pneumonia. Procalcitonin, sed rate and crp were all normal. CTA chest also did not demonstrate any PEs. Troponins were negative. He did not have any recurrent chest pain or chest tightness. His dyspnea resolved by the time he got to his room on the telemetry unit. He remained clear on lung exam for the remainder of his brief stay. He was seen by Dr Antoine Bauer from [facility]. Dr Bauer felt that the patient might have a component of radiation fibrosis of the left lung contributing to his symptoms. Thus, he was initiated on prednisone 40mg daily while here. He is on PPI for GI prophylaxis. Other possibility for his acute dyspnea was that of a transient mucous plug or an episode of bronchospasm. O2 sats remained stable on his 3 L of [place] O2 the entire visit. He will d/c to home on prednisone 40mg once daily for 7 days, followed by 30mg once daily for 7 days, and so forth. Advised he f/u with Dr Jorge Olea, his primary inspector sheet metal parts, within 5-7 days for ongoing management. (2) Radiation fibrosis of lung: See above discussion. D/c to home on prednisone. Defer outpatient management to Dr Jorge Olea. (3) Mass of lower lobe of left lung: Concern for recurrent lung cancer in this location. Follows with the [facility]. Previously received XRT to the LLL. (4) S/P lobectomy of lung: (5) Presence of externally removable percutaneous endoscopic gastrostomy (PEG) tube: No issues with his PEG tube during the admission. Had the PEG tube exchanged during the preceding admission by Monique FU. Continue tube feedings as previous. (6) Coronary atherosclerosis of [place] coronary vessel: Troponins negative while hospitalized. (7) Unspecified essential hypertension: Does not take medications for such, presumably due to extensive weight loss from cancer? (8) Lung cancer: lengthy history of such follows with [facility] concern for recurrence in the left lower lobe of lung (9) Cancer of supraglottis: history of such - initial dx in 2009 (10) COPD (chronic obstructive pulmonary disease): with resulting chronic hypoxic respiratory failure on home O2, 3 L continuously. no exacerbation while hospitalized. continue usual inhalers and nebs. follows with Dr Jorge Olea. (11) Hypothyroidism: TSH early January 2020 wnl. cont synthroid. (12) Chronic respiratory failure with hypoxia: 3 L [place] O2 continuously. (13) Severe protein-calorie malnutrition: 40-45 pounds of weight loss in the last year due to recurrent cancer. continue tube feedings via PEG. (14) Carotid stenosis: incidental note of common carotid stenosis on the right, 80%, on CTA chest. could consider outpatient carotid duplex. however, in light of his recurrent cancer and other more pressing issues, uncertain if this should be pursued. would defer additional work-up to his outpatient providers. Total Time Total Time Spent Total Time Spent (In Minutes): 35 Total Time Includes: Examination of the Patient, Discharge Planning, Medication Reconciliation and Communication With Other Providers Discharge Plan Discharge Items Patient Disposition: Home - Self-Care Reason For Visit: Shortness of breath Discharge Diagnosis: Shortness of breath - resolved. Some concern of radiation effects on the left lung - inspector sheet metal parts recommending a slow taper of prednisone for this. No obvious pneumonia seen. No urinary tract infection or other infections seen. Condition on Discharge: Good Activity: Resume your previous activity Non-emergency contact: Primary Care Provider and Tape Recorder Mechanic Call non-emergency contact if: you have any medication questions, your symptoms worsen and you have a fever Follow-up/Referrals: Joshua Olea MD [Physician] - (see Dr Olea within 5-7 days ) Chapito Milner DO [Primary Care Provider] - (please contact Dr Milner's office for f/u within 1-2 weeks) Diet: Other - See Diet Comment Diet Comment: tube feedings via PEG tube as previous Addtl Attending Provider Instructions: You were admitted for shortness of breath. CAT scan of the lungs did NOT show blood clots. Emphysema was seen as well as your cancer. There is also concern of inflammation of the left lung from prior radiation. It is possible the shortness of breath was from the radiation changes on your left lung. It is also possible you had had a "mucous plug" (a large glob of mucous in the lung that makes it hard to breath; once you cough it up or pass it the shortness of breath resolves). Dr Bauer from pulmonary is recommending a slow taper of prednisone for you. Start with 40mg once daily via your PEG tube. Start this TOMORROW on 02/01/2020. I have sent in the prednisone to [facility] for you. Stay on 40mg once daily for a week, then cut down to 30mg once daily. You will need to see Dr Olea in 5-7 days to discuss the prednisone further. Lastly, for cough, you can take [id number] Robitussin. You can take 100-200mg each time up to 4 times a day via your PEG tube. It comes in liquid form which will make it easy to take. Return to [facility] if - * you have fevers over 100.4 degrees * you have worsening shortness of breath * you have to turn up the oxygen on your oxygen tank due to your breathing * you have chest pains * any other concerns Pending Studies at Discharge: No Stand-Alone Forms: My [facility], Smoking Cessation Medications and DC Order Prescriptions: New Incruse Ellipta 62.5 mcg/actuation Blister With Device 1 inh inhalation DAILY Qty: 30 RF: 5 prednisone 10 mg tablet 10 mg feeding tube DIRECTED Qty: 60 RF: 1 Continued Symbicort 160-4.5 mcg/actuation HFA aerosol inhaler 2 puffs INH BID RF: 0 Benefiber Sugar Free (dextrin) 3 gram/3.8 gram powder 1.5 gm PO DAILY PRN (Reason: constipation) RF: 0 loperamide [Imodium A-D] 1 mg/7.5 mL liquid 2 mg feeding tube Q4H PRN (Reason: Diarrhea) RF: 0 sertraline 100 mg tablet 100 mg feeding tube DAILY RF: 0 lansoprazole 30 mg capsule,delayed release(DR/EC) 30 mg feeding tube DAILY RF: 0 levothyroxine 137 mcg capsule 137 mcg feeding tube DAILY RF: 0 (DME) Oxygen Home Liters Per Minute See Dose Instructions .ROUTE .MEDSUPPLY Qty: 1 RF: 0 oxycodone 5 mg capsule 10 mg feeding tube Q6 RF: 0 mirtazapine 45 mg tablet 45 mg feeding tube DAILY Qty: 30 RF: 2 magnesium oxide 420 mg Tablet 420 mg Feeding Tube DAILY RF: 0 potassium chloride 40 mEq/15 mL Liquid 40 meq Feeding Tube DAILY RF: 0 fentanyl 25 mcg/hr Patch 72 Hour 1 patch TRANSDERMAL Q72H RF: 0 loratadine 10 mg Tablet 10 mg Feeding Tube DAILY PRN (Reason: Allergic Reaction) RF: 0 Nutren 2.0 0.08 gram-2 kcal/mL Liquid 2 can Feeding Tube BID RF: 0 buspirone 5 mg tablet 5 mg Feeding Tube BID RF: 0 gabapentin 300 mg capsule 300 mg Feeding Tube BID RF: 0 ipratropium-albuterol 0.5 mg-3 mg(2.5 mg base)/3 mL solution for nebulization 3 ml INHALATION TID RF: 0 azithromycin [Zithromax] 250 mg tablet 500 mg feeding tube UD RF: 0 Changed ipratropium-albuterol 20-100 mcg/actuation Mist 1 puff INHALATION QID PRN (Reason: cough or shortness of breath) Qty: 1 RF: 0 Discontinued tiotropium bromide [Spiriva Respimat] 2.5 mcg/actuation mist 2 puff inhalation DAILY RF: 0 Discharge Orders: Discharge Order (Routine); Ordered 01/31/20 Ordered By: Bari Kennedy Admission Data Admit Date/Time: 01/30/20 06:09 Attending Provider: Bari Kennedy Admit Provider: Guido Burroughs Primary Care Provider: Chapito Milner Other Providers: Guido Burroughs ; Griffin Bauer Other Interventions: Discharge Summary Assessment (RN) Last Done: 01/31/20 07:56 DC Date/Time DO NOT enter until pt leaves facility: 01/31/20 08:10 Coding Level of Care Code D/C Day Management >30 mins Diagnoses WHYTE (dyspnea on exertion) R06.00 Radiation fibrosis of lung J70.1 Mass of lower lobe of left lung R91.8 S/P lobectomy of lung Z90.2 Presence of externally removable percutaneous endoscopic gastrostomy (PEG) tube Z93.1 Coronary atherosclerosis of [place] coronary vessel I25.10 [place] vs. transplanted heart: [place] heart Associated angina: without angina Unspecified essential hypertension I10 Lung cancer C34.92 Laterality: left Lung location: unspecified part of lung Cancer of supraglottis C32.1 COPD (chronic obstructive pulmonary disease) J44.9 COPD type: unspecified COPD Hypothyroidism E03.9 Hypothyroidism type: unspecified Chronic respiratory failure with hypoxia J96.11 Severe protein-calorie malnutrition E43 Carotid stenosis I65.29
[2020-01-31] MEDS: FLUTICASONE/VILANTEROL 100/25MCG 14 PUFFS/INHALER INH SCH (07:38)
[2020-01-31] MEDS: UMECLIDINIUM BROMIDE 62.5MCG/BLISTER 7 PUFFS/INHALER INH SCH (07:39)
[2020-01-31] MEDS: POTASSIUM CHLORIDE 20 MEQ/15 ML UDC PEG SCH (07:40)
[2020-01-31] MEDS: MAGNESIUM OXIDE 400 MG TAB PEG SCH (07:40)
[2020-01-31] MEDS: GABAPENTIN 300 MG CAP PO SCH (07:41)
[2020-01-31] MEDS: MIRTAZAPINE SOLTAB 15 MG PO SCH (07:41)
[2020-01-31] MEDS: LANSOPRAZOLE 30 MG SOLTAB PEG SCH (07:41)
[2020-01-31] MEDS: guaiFENesin SUGAR FREE 200 MG/10 ML UDC PEG SCH (07:41)
[2020-01-31] MEDS: predniSONE 20 MG TAB PO SCH (07:41)
[2020-01-31] MEDS: SERTRALINE HCL 100 MG TABLET PEG SCH (07:42)
[2020-01-31] MEDS: PATIENT'S OWN ENTERAL FEEDING PEG SCH (07:43)
[2020-01-31] MEDS ORDERED: ENOXAPARIN INJ 40 MG/0.4 ML SYR SQ SCH (09:00)
[2020-01-31] MEDS ORDERED: AZITHROMYCIN 250 MG TAB PO SCH (09:00)
[2020-01-31] MEDS ORDERED: fentaNYL 25 MCG/HR TDSY TD SCH (09:00)
[2020-01-31 09:04] VITALS: PULSE 80
--- NOTE | 2020-02-01 01:08 | Billing Data ---
Date of Service February 01, 2020 Coding Level of Care Code 66298 Initial Inpt Care Lvl 3
== END 2020-01-31 08:10 | disposition home or self-care (01) | DRG 196 ==
LOC: ED 00:56 → SUATTDRO 06:09 → 2W 06:09

== ENCOUNTER 2020-09-18 10:08 | Inpatient (IN) ==
[2020-09-18 11:02] LABS: Basophils # (auto) 0.03 K/uL (0-0.2); Basophils % (auto) 0.5 %; Eosinophils # (auto) 0.01 K/uL (0-0.5); Eosinophils % (auto) 0.2 %; Hematocrit (blood only) 24.7 % (42-52); Hemoglobin 7.5 g/dL (14.0-18.0); Immature Granulocytes # (auto) 0.01 K/uL (0.00-0.02); Immature Granulocytes % (auto) 0.2 %; Lymphocytes # (auto) 0.39 K/uL (1.2-3.4); Lymphocytes % (auto) 6.1 %; Mean Corpuscular Hemoglobin 23.7 pg (25-34); Mean Corpuscular Hgb Conc 30.4 g/dL (32-36); Mean Corpuscular Volume 78.2 fL (80-100); Mean Platelet Volume 8.4 fL (7.4-10.4); Monocytes # (auto) 0.19 K/uL (0.11-0.59); Neutrophils # (auto) 5.75 K/uL (1.4-6.5); Platelet Count 313 K/uL (130-400); RDW Standard Deviation 45.9 fL (36.4-46.3); Red Blood Count 3.16 M/uL (4.7-6.1); White Blood Count 6.38 K/uL (4.8-10.8)
[2020-09-18 11:04] LABS: Base Excess VBG 3.9 mEq/L; Oxygen Saturation VBG 96.7 %; pH VBG 7.41 (7.36-7.41)
[2020-09-18 11:11] LABS: Partial Thromboplastin Ratio 0.9; Partial Thromboplastin Time 23.9 Seconds (21.0-31.0); Prothrombin Time 9.8 Seconds (9.0-12.0)
[2020-09-18 11:19] LABS: Hypochromasia Present; Polychromasia 1+
[2020-09-18 11:21] LABS: Alanine Aminotransferase 20 U/L (12-78); Albumin Level 3.7 gm/dl (3.4-5.0); Aspartate Aminotransferase 11 U/L (15-37); BUN Creatinine Ratio 26.8 (10-20); Bilirubin Direct < 0.1 mg/dl (0-0.2); Blood Urea Nitrogen 19 mg/dl (7-18); Calcium 8.7 mg/dl (8.5-10.1); Carbon Dioxide 29 mmol/L (21-32); Chloride 104 mmol/L (98-107); Est GFR (African American) 111.1; Est GFR (Non-African American) 95.9; Glucose 112 mg/dl (70-99); Lipase 88 U/L (73-393); Magnesium 2.4 mg/dl (1.8-2.4); Sodium 140 mmol/L (136-145)
[2020-09-18 11:27] LABS: Alkaline Phosphatase 91 U/L (45-117); Bilirubin,Total 0.2 mg/dl (0.2-1); NT Pro B Type Natriuretic Pept 241 pg/ml (0-900); Total Protein 7.2 gm/dl (6.4-8.2); Troponin I < 0.015 ng/ml (0-0.045)
--- NOTE | 2020-09-18 11:27 | XRay Report ---
XR chest 1V portable CLINICAL HISTORY: hemoptysis sob COMPARISON STUDY: 09/17/2020 FINDINGS: There is radiographic evidence of pulmonary emphysema. There is stable right hilar enlargem ent. There is a persistent 5 cm left infrahilar opacity. There is blunting of the right lateral costo phrenic angle. A trace effusion cannot be excluded. There is an equivocal 27 mm right upper lung zone airspace opacity.[ IMPRESSION: 1. Equivocal new 27 mm right upper lung zone airspace opacity. If a real finding, this is likely infe ctious/inflammatory 2. Stable right hilar enlargement 3. Stable 5 cm left infrahilar opacity 4. Suspected trace right pleural effusion ACT 112: Negative or not required by law. Electronically signed by: Gentry Tsang M.D. 09/18/2020 11:26 AM
[2020-09-18] MEDS ORDERED: OPTIRAY 320 125ml IV ONE (12:09)
--- NOTE | 2020-09-18 12:28 | Electrocardiogram Report ---
Test Reason : Blood Pressure : / mmHG Vent. Rate : 114 BPM Atrial Rate : 114 BPM P-R Int : 154 ms QRS Dur : 118 ms QT Int : 360 ms P-R-T Axes : 040 -60 056 degrees QTc Int : 496 ms Poor data quality, interpretation may be adversely affected Sinus tachycardia Incomplete right bundle branch block Left anterior fascicular block Nonspecific ST abnormality Abnormal ECG When compared with ECG of 30-JAN-2020 01:05, Incomplete right bundle branch block is now Present Confirmed by Caio Ibarra ([id number]) on 09/18/2020 12:28:35 PM Referred By: Confirmed By:Caio Ibarra
--- NOTE | 2020-09-18 12:57 | CT Scan Report ---
CT ANGIOGRAM OF THE CHEST CLINICAL HISTORY: Dyspnea. Hemoptysis. Lung cancer. COMPARISON STUDY: Chest CT scans dated 01/30/2020 and 10/21/2017. TECHNIQUE: Following the IV administration of 118 cc of Optiray 320, CT angiogram of the chest was pe rformed from the upper abdomen to the thoracic inlet utilizing the pulmonary embolus protocol. Images are reviewed in the axial, sagittal, and coronal planes. 3-D MIPS images are created and assessed. I V contrast was administered without complication. A dose lowering technique was utilized adhering to the principles of ALARA. CT DOSE: 485.75 mGycm FINDINGS: Thyroid: Imaged portions of the thyroid gland are normal in size and attenuation. Thoracic aorta: There is atherosclerotic calcification of the thoracic aorta, which is normal in sumi carey and demonstrates standard 3-vessel arch anatomy. No dissection is seen. Pulmonary vasculature: The pulmonary trunk is dilated, measuring 3.6 cm in diameter. This suggests pu lmonary artery hypertension. There are no filling defects identified in main, lobar, or segmental pul monary branches to suggest pulmonary embolus. Heart: The heart is normal in size and without pericardial effusion. The coronary arteries are densel y calcified. Lungs and pleural spaces: Advanced emphysematous change is noted. There is postoperative change from right-sided pulmonary resection. A left infrahilar nodular density measuring approximately 3 cm simil ar to previous. Bandlike fibrosis is again seen in the left lower lobe. There is no airspace consolid ation typical for pneumonia. Trace pleural fluid and pleural thickening is again seen at the right yrn ng base. There is a 9 mm irregular pulmonary nodule in the superior segment of the right lower lobe s een on image #176. This is new from previous, as is a 11 mm nodular density in the left lower lobe se en on image #100. Secretions are noted within the distal trachea and mainstem bronchi. There is diffu se peribronchial thickening. Mediastinum: Scattered subcentimeter mediastinal lymph nodes are not pathologically enlarged by size criteria. Carolynn: Clear. Axillae: There is no axillary lymphadenopathy. Upper abdomen: Partially visualized upper abdominal viscera is within normal limits. Skeletal structures: The skeletal structures are osteopenic. No lytic or blastic bony lesions are see n. There are numerous healed bilateral rib fractures. There are subacute/healing bilateral rib fractu res, as well as subacute/healing fracture through the body of the sternum. Fusion hardware is noted i n the lower cervical spine. IMPRESSION: 1. There is no evidence of pulmonary embolus in the main, lobar, or segmental pulmonary arteries. 2. Advanced emphysema and postoperative change from right-sided pulmonary resection. 3. There is no airspace consolidation typical for pneumonia. 4. An irregular 3 cm left infrahilar nodular density is similar to previous, as is bandlike fibrosis in the left lower lobe. 4. A 9 mm nodule in the right lower lobe and an 11 mm nodule in the left lower lobe are new from prev ious and concerning for progressive metastatic disease. 5. Diffuse peribronchial thickening suggests bronchitis/reactive airway disease. Clinical correlation will be required. 6. There are subacute/healing fractures involving the body of the sternum and several bilateral ribs. 7. Additional findings as above. ACT 112: Negative or not required by law. Electronically signed by: Alex Taylor M.D. 09/18/2020 12:56 PM
[2020-09-18] MEDS ORDERED: PANTOprazole 80 MG in DEXTROSE 5% 100 ML IV ONE (13:16)
[2020-09-18] MEDS ORDERED: PANTOprazole 40 MG in DEXTROSE 5% 100 ML IV SCH (13:30)
[2020-09-18] MEDS ORDERED: oxyCODONE/ACETAMINOPHEN 10-325 TAB PO STA (13:46)
--- NOTE | 2020-09-18 14:11 | History & Physical Report ---
Date of Service September 18, 2020 Assessment & Plan (1) Anemia: Symptomatic microcytic anemia in the face of melena plus minus Pepto- Bismol and reflux stools patient will be on Protonix IV twice daily be kept n.p.o. after midnight consultation GI medicine for possible upper endoscopy he is typed and crossed x1 unit consented will be transfused 1 unit packed red blood cells his hemoglobin has been stable since yesterday subsequently trending of hemoglobin obviously taken plus patient clinically deteriorates Given his microcytic we will add iron studies as patient may be poorly absorbing iron from his diet given his complete liquid diet (2) COPD (chronic obstructive pulmonary disease): Patient is chronically on 3 L of oxygen he feels his breathing is slightly worsened which may be associate with his anemia is no change in color or quantity or consistency of the sputum. Patient takes 3 times a week azithromycin which will be continued as well this is budesonide formoterol inhaler ipratropium nebulizer and DuoNeb. Patient feels although this regimen is unusual it is helped him and wishes to continue on it chronic daily prednisone continues 15 mg (3) Unspecified essential hypertension: Losartan is continued (4) Hypothyroidism: Is requesting Synthroid to be broken to twice daily this will be a 75 mics twice daily (5) Anxiety: Patient remains on BuSpar (6) G tube feedings: Patient takes Nutren 2.02 cans approximately 0.5 ounces per 10 twice a day. I instructed the patient he may need increase his free water a bit as he is having some taste as well as being comfortable with (7) DVT prophylaxis: SCDs will be used Patient is full code History of Present Illness Primary Care Provider: Chapito Milner, DO 69 yo M with PMH lung and supraglottic cancer s/p lobectomy, chemotherapy and radiation, 3L O2 dependent COPD admitted for shortness of breath. Patient typically gets all of his nutrition via his PEG tube he fell can take sips of water orally however he is at risk for reflux and aspiration. Patient takes daily Pepto-Bismol to help with his stool consistency as since his radiation and chemo treatment he has had frequent issues with stooling subsequently developed a protocol of daily Pepto-Bismol twice daily fiber and Imodium Patient presents to our emergency department at the request of his primary care provider who jamie outpatient labs on 2/9 with a hemoglobin of 7.5. And microcytic indices patient notes he does his nutrition from a prepackaged Nutren 2.0 and does take a liquid multivitamin his stools been black for years since he takes daily Pepto-Bismol. He notes no other change in his stool habits. He has no dyspepsia he frequently aspirates his PEG tube and he has not noticed any coffee-ground or dark material in the PEG tube aspirate Patient typically takes all his medications twice a day usually at midnight and noon he has recently changed his Synthroid dosing to twice daily as he feels when he takes it once a day it causes some post administration flushing and sweating Allergies Allergy/AdvReac Type Severity Reaction Status Date / Time NSAIDS (Non-Steroidal AdvReac Mild upset Verified 09/18/20 13:34 Anti-Inflamma stomach Home Medications Medication Instructions Recorded Confirmed Type potassium chloride 0 meq FEEDING TUBE DAILY 05/11/18 09/18/20 History budesonide-formoterol HFA 160 2 puffs INH BID 02/15/19 09/18/20 History mcg-4.5 mcg/actuation aerosol inhaler loperamide 1 mg/7.5 mL oral liquid 2 mg FEEDING TUBE Q4H PRN 02/15/19 09/18/20 History wheat dextrin 3 gram/3.8 gram oral 1.5 gm PO DAILY PRN gm 02/15/19 09/18/20 History powder levothyroxine 137 mcg capsule 137 mcg FEEDING TUBE DAILY 05/19/19 09/18/20 History gabapentin 300 mg capsule 0 mg FEEDING TUBE BID cap 07/10/19 09/18/20 History ipratropium 0.5 mg-albuterol 3 mg 3 ml INHALATION TID ml 01/15/20 09/18/20 History (2.5 mg base)/3 mL nebulization soln ipratropium-albuterol 1 puff INHALATION QID PRN #1 01/31/20 09/18/20 Rx inhaler fentanyl 25 mcg/hr transdermal 1 patch TRANSDERMAL Q72H 03/01/20 09/18/20 History patch nutritional supplements 0.08 2 ea FEEDING TUBE BID 03/27/20 09/18/20 History gram-2 kcal/mL liquid for tube feed oxycodone 5 mg capsule 10 mg FEEDING TUBE Q6H cap 03/27/20 09/18/20 History azithromycin 250 mg tablet 500 mg FEEDING TUBE UD #24 tab 04/16/20 09/18/20 Rx lansoprazole 30 mg capsule,delayed 30 mg FEEDING TUBE BID #60 cap 04/17/20 09/18/20 Rx release Oxygen Home #1 ea 05/22/20 09/17/20 Rx loratadine 10 mg tablet 10 mg FEEDING TUBE DAILY PRN 05/28/20 09/18/20 History prednisone 10 mg tablet 10 mg FEEDING TUBE DIRECTED tab 05/28/20 09/18/20 History buspirone 10 mg tablet 10 mg PO BID #60 tab 05/29/20 09/18/20 Rx prednisone 5 mg tablet 5 mg PO DAILY #90 tab 06/12/20 09/18/20 Rx tiotropium bromide 2.5 2 inh INHALATION QAM #4 g 06/12/20 09/18/20 Rx mcg/actuation mist for inhalation fentanyl 12 mcg/hr transdermal 1 patch TRANSDERMAL Q72H #1 ea 09/17/20 09/18/20 Rx patch losartan 25 mg FEEDING TUBE DAILY 09/18/20 09/18/20 History mirtazapine 45 mg FEEDING TUBE HS 09/18/20 09/18/20 History Past Med/Surg History Medical History (Updated 09/18/20 @ 15:17 by Sterling Tan MD) Anxiety Cancer of supraglottis "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 Radiation completed 02/28/2010 received 7200 cGy Finding of asymmetry of larynx on the right. 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 Radiation completed 02/28/2010 received 7200 cGy Finding of asymmetry of larynx on the right. Plan for laryngoscopy and biopsy 01/27/2017 " Cervical stenosis of spinal canal Chronic low back pain "[facility]" COPD (chronic obstructive pulmonary disease) "is on home oxygen" Hypothyroidism Insomnia Lung cancer (10/04/17) Mass of lower lobe of left lung Oxygen dependent Presence of externally removable percutaneous endoscopic gastrostomy (PEG) tube (~2019) Radiation fibrosis of lung Surgical History H/O cervical spine surgery H/O neck surgery right side Percutaneous endoscopic gastrostomy status S/P lobectomy of lung Family History Other No pertinent family history Denies family history of Ovarian cancer Prostate cancer Breast cancer Lung cancer Colorectal cancer Social History Smoking Status: Former smoker Tobacco Type: Cigarettes Second Hand Exposure: No; Hx Alcohol Use: No Hx Substance Use: No Preferred Language: Thai Communication Ability: Effective Visual Impairment: No Limitations Hearing Ability: Normal 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 Beliefs That Will Affect Care: None marital status: Single Current Living Situation: Family and Significant Other current occupational status: retired Feels Safe at Home: Yes caffeine: No Dental Care, Regularly: Yes Physical Activity Frequency: Does not Exercise Seatbelt Use: always Sunscreen Use: Yes Assistive Devices: Glasses and Oxygen - Continuous Review of Systems Review of Systems: Mild distress and recently increased fatigue no headache, blurry or double vision no speech or swallowing issues no chest pain, pressure or palpitations Baseline shortness of breath, cough or wheezes no abdominal pain, nausea or vomiting, frequent issues with alternating diarrhea and constipation PEG tube site has been clean dry and intact no dysuria, hematuria or frequency no focal joint pain or swelling no back pain, CVA tenderness or radicular pain no bruising, bleeding or rashes no focal signs of weakness or numbness or altered sensation no complaints of anxiety or depression.. Physical Exam Physical Exam: The patient appeared well nourished and normally developed. Vital signs as documented. Head exam is normocephalic atraumatic no scleral icterus Neck is without JVD, thyromegaly, or carotid bruits. Lungs are with overall poor air movement and expiratory wheezes on chronic oxygen Cardiac exam, Rhythm is regular.. No murmurs, rubs or gallops. Abdominal exam reveals normal bowel sounds, soft non tender, no masses clean PEG tube in central abdomen Extremities are nonedematous and both pedal pulses are present Neurologic exam is alert and oriented, no focal loss of strength or sensation Skin is with lower extremity changes of chronic venous stasis are noted Psychologically is without concerns for anxiety or depression Results & Data Results & Data ([facility]) Vital Signs (Past 12 Hours) Vital Signs Temp Pulse Resp BP Pulse Ox 09/18/20 12:01 98 H 16 09/18/20 11:30 99 H 18 09/18/20 11:00 100 H 17 09/18/20 10:39 106 H 14 09/18/20 10:12 97.2 F L 112 H 20 190/78 H 100 CTA scan chest is IMPRESSION: 1. There is no evidence of pulmonary embolus in the main, lobar, or segmental pulmonary arteries. 2. Advanced emphysema and postoperative change from right-sided pulmonary resection. 3. There is no airspace consolidation typical for pneumonia. 4. An irregular 3 cm left infrahilar nodular density is similar to previous, as is bandlike fibrosis in the left lower lobe. 4. A 9 mm nodule in the right lower lobe and an 11 mm nodule in the left lower lobe are new from previous and concerning for progressive metastatic disease. 5. Diffuse peribronchial thickening suggests bronchitis/reactive airway disease. Clinical correlation will be required. 6. There are subacute/healing fractures involving the body of the sternum and several bilateral ribs EKG shows sinus tach PG Care Time/CCT Total # of Minutes Spent Total Time Spent with Patient: Total time spent is greater than 50% in coordination of care (as documented) at patient's floor/unit and/or counseling patient: Coding Level of Care Code 17046 Initial Inpt Care Lvl 3 Diagnoses Anemia D64.9 COPD (chronic obstructive pulmonary disease) J44.9 COPD type: unspecified COPD Unspecified essential hypertension I10 Hypothyroidism E03.9 Hypothyroidism type: unspecified Anxiety F41.9 G tube feedings Z93.1 DVT prophylaxis Z29.9 (1) Hypothyroidism Hypothyroidism type: unspecified Qualified Code(s): E03.9 - Hypothyroidism, unspecified (2) COPD (chronic obstructive pulmonary disease) COPD type: unspecified COPD Qualified Code(s): J44.9 - Chronic obstructive pulmonary disease, unspecified
--- NOTE | 2020-09-18 15:33 | Emergency Department Note ---
History of Present Illness General Chief complaint: Abnormal Labs/Diagnostic Testing Stated complaint: DR MILNER REF RED BLOOD COUNT LOW Time Seen by Provider: 09/18/20 10:15 History of Present Illness Provider complaint: Shortness of breath Onset (ago): month(s) 3 Maximum Pain Intensity: 2 Associated symptoms: + chest pain, + cough and + shortness of breath; no fever/chills 70-year-old male presents emergency department for shortness of breath. Patient reports his shortness of breath has been getting increasingly worse over the last 2 to 3 months. He states he thought his shortness of breath began around [place] time when he tripped over his home oxygen and landed on his chest. Patient states that that time he was having chest pain but he took his pain medication over the next few weeks the pain got better. He reports that the difficulty breathing did not. He reports that anytime he gets up to walk more than a few feet he is having difficulty breathing. Patient reports no increase in weight. Patient states he was coughing and that causes the chest pain also. Pain is located in the center of his chest. No radiation. Patient reports to have been a few times when he has coughed up blood. Patient states he went to his PCP who did blood work and found him to have a low hemoglobin level. Radha ent states he does not like doctors or hospitals and that is why he did not go to his PCP sooner. Home Medications Medication Instructions Recorded Confirmed Type potassium chloride 0 meq FEEDING TUBE DAILY 05/11/18 09/18/20 History budesonide-formoterol HFA 160 2 puffs INH BID 02/15/19 09/18/20 History mcg-4.5 mcg/actuation aerosol inhaler loperamide 1 mg/7.5 mL oral liquid 2 mg FEEDING TUBE Q4H PRN 02/15/19 09/18/20 History wheat dextrin 3 gram/3.8 gram oral 1.5 gm PO DAILY PRN gm 02/15/19 09/18/20 His tory powder levothyroxine 137 mcg capsule 137 mcg FEEDING TUBE DAILY 05/19/19 09/18/20 History gabapentin 300 mg capsule 0 mg FEEDING TUBE BID cap 07/10/19 09/18/20 History ipratropium 0.5 mg-albuterol 3 mg 3 ml INHALATION TID ml 01/15/20 09/18/20 History (2.5 mg base)/3 mL nebulization soln ipratropium-albuterol 1 puff INHALATION QID PRN #1 01/31/20 09/18/20 Rx inhaler fentanyl 25 mcg/hr transdermal 1 patch TRANSDERMAL Q72H 03/01/20 09/18/20 History patch nutritional supplements 0.08 2 ea FEEDING TUBE BID 03/27/20 09/18/20 History gram-2 kcal/mL liquid for tube feed oxycodone 5 mg capsule 10 mg FEEDING TUBE Q6H cap 03/27/20 09/18/20 History azithromycin 250 mg tablet 500 mg FEEDING TUBE UD #24 tab 04/16/20 09/18/20 Rx lansoprazole 30 mg capsule,delayed 30 mg FEEDING TUBE BID #60 cap 04/17/20 09/18/20 Rx release Oxygen Home #1 ea 05/22/20 09/17/20 Rx loratadine 10 mg tablet 10 mg FEEDING TUBE DAILY PRN 05/28/20 09/18/20 History prednisone 10 mg tablet 10 mg FEEDING TUBE DIRECTED tab 05/28/20 09/18/20 History buspirone 10 mg tablet 10 mg PO BID #60 tab 05/29/20 09/18/20 Rx prednisone 5 mg tablet 5 mg PO DAILY #90 tab 06/12/20 09/18/20 Rx tiotropium bromide 2.5 2 inh INHALATION QAM #4 g 06/12/20 09/18/20 Rx mcg/actuation mist for inhalation fentanyl 12 mcg/hr transdermal 1 patch TRANSDERMAL Q72H #1 ea 09/17/20 09/18/20 Rx patch losartan 25 mg FEEDING TUBE DAILY 09/18/20 09/18/20 History mirtazapine 45 mg FEEDING TUBE HS 09/18/20 09/18/20 History Allergies Allergy/AdvReac Type Severity Reaction Status Date / Time NSAIDS (Non-Steroidal AdvReac Mild upset Verified 09/18/20 13:34 Anti-Inflamma stomach Past Med/Surg History Medical History (Updated 09/18/20 @ 15:43 by Gerry Caputo) Anxiety Cancer of supraglottis "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 Radiation completed 02/28/2010 received 7200 cGy Finding of asymmetry of larynx on the right. 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 Radiation completed 02/28/2010 received 7200 cGy Finding of asymmetry of larynx on the right. Plan for laryngoscopy and biopsy 01/27/2017 " Cervical stenosis of spinal canal Chronic low back pain [facility]" COPD (chronic obstructive pulmonary disease) "is on home oxygen" Hypothyroidism Insomnia Lung cancer (10/04/17) Mass of lower lobe of left lung Oxygen dependent Presence of externally removable percutaneous endoscopic gastrostomy (PEG) tube (~2018) Radiation fibrosis of lung Surgical History H/O cervical spine surgery H/O neck surgery right side Percutaneous endoscopic gastrostomy status S/P lobectomy of lung Family History Other No pertinent family history Denies family history of Ovarian cancer Prostate cancer Breast cancer Lung cancer Colorectal cancer Social History Smoking Status: Former smoker Tobacco Type: Cigarettes Second Hand Exposure: No; Hx Alcohol Use: No Hx Substance Use: No Preferred Language: Guamanian Communication Ability: Effective Visual Impairment: No Limitations Hearing Ability: Normal Lawn Care Specialist Required: No Beliefs That Will Affect Care: None marital status: Single Current Living Situation: Family and Significant Other current occupational status: retired Feels Safe at Home: Yes caffeine: No Dental Care, Regularly: Yes Physical Activity Frequency: Does not Exercise Seatbelt Use: always Sunscreen Use: Yes Assistive Devices: Glasses and Oxygen - Continuous Review of Systems A total of 10 systems reviewed and were otherwise negative Physical Exam Vital Signs Vital Signs - 24 hr 09/18/20 10:12 09/18/20 10:39 09/18/20 10:51 Temperature 36.2 C L Temperature Source Temporal Artery Scan Pulse Rate 112 H 106 H Respiratory Rate 20 14 Blood Pressure 190/78 H Blood Pressure Mean 115 Pulse Oximetry 100 Oxygen Delivery Method Nasal Cannula Room Air Oxygen Flow Rate 3 Sepsis Recent Fever Within 48 Hours No Sepsis New/Unexplained Change in Mental Status No Sepsis Action Taken by Nursing No Action Required 09/18/20 11:00 09/18/20 11:30 09/18/20 12:01 Temperature Temperature Source Pulse Rate 100 H 99 H 98 H Respiratory Rate 17 18 16 Blood Pressure Blood Pressure Mean Pulse Oximetry Oxygen Delivery Method Oxygen Flow Rate Sepsis Recent Fever Within 48 Hours Sepsis New/Unexplained Change in Mental Status Sepsis Action Taken by Nursing 09/18/20 12:30 09/18/20 12:46 09/18/20 13:00 Temperature Temperature Source Pulse Rate 105 H 106 H 96 H Respiratory Rate 15 19 18 Blood Pressure 145/95 H Blood Pressure Mean 111 Pulse Oximetry Oxygen Delivery Method Oxygen Flow Rate Sepsis Recent Fever Within 48 Hours Sepsis New/Unexplained Change in Mental Status Sepsis Action Taken by Nursing 09/18/20 13:30 09/18/20 14:00 09/18/20 14:37 Temperature Temperature Source Pulse Rate 93 H 90 98 H Respiratory Rate 21 16 30 H Blood Pressure Blood Pressure Mean Pulse Oximetry Oxygen Delivery Method Oxygen Flow Rate Sepsis Recent Fever Within 48 Hours Sepsis New/Unexplained Change in Mental Status Sepsis Action Taken by Nursing 09/18/20 15:00 Temperature Temperature Source Pulse Rate 92 H Respiratory Rate 15 Blood Pressure Blood Pressure Mean Pulse Oximetry Oxygen Delivery Method Oxygen Flow Rate Sepsis Recent Fever Within 48 Hours Sepsis New/Unexplained Change in Mental Status Sepsis Action Taken by Nursing Physical Exam GENERAL: He is oriented to person, place, and time. He appears well-developed and well-nourished. He does not appear distressed. HENT: Exam performed. - Head: Normocephalic and atraumatic. - Right Ear: External ear normal. No mastoid tenderness. - Left Ear: External ear normal. No mastoid tenderness. - Mouth/Throat: The oropharynx is clear and moist. No trismus in the jaw. No dental abscesses or uvula swelling. No oropharyngeal exudate or tonsillar abscesses. EYES: Conjunctivae and EOM are normal. Pupils are equal, round, and reactive to light. Right eye exhibits no discharge. Left eye exhibits no discharge. No scleral icterus. NECK: Normal range of motion. Neck supple. No JVD present. No spinous process tenderness present. No carotid bruit present. No rigidity. No tracheal deviation and normal range of motion present. No Brudzinski's sign and no Kernig's sign noted. CV: Tachycardic rate, regular rhythm, normal heart sounds and intact distal pulses. There is no peripheral edema. Palpable radial pulses bue. PULM/CHEST:Diminished breath sounds bilaterally. - Chest Wall: He exhibits no tenderness. ABD: The abdomen is soft. Bowel sounds are normal. He has no distension. No mass is present. There is no tenderness. There is no rebound, no guarding, no Celaya's sign and no tenderness at McBurney's point. Rovsig negative. MUSC/SKEL: Normal range of motion. There is no peripheral edema, tenderness or deformity. LYMPH: No cervical adenopathy. NEURO: He is alert and oriented to person, place, and time. He has normal strength. No cranial nerve deficit or sensory deficit. Coordination and gait normal. GCS eye subscore is 4. GCS verbal subscore is 5. GCS motor subscore is 6. Cerebellar tests wnl. SKIN: Skin is warm and dry. He is not diaphoretic. PSYCH: He has a normal mood and affect. Behavior is normal. Judgment and thought content normal. Course Course 1015: The patient was evaluated in room C4. A complete history and physical exam was performed. Cardiac monitoring: An order was placed for continuous cardiac monitoring. The monitor shows a rate of 115 with Sinus tachycardia rhythm EMR reviewed. Patient had blood work done yesterday September 17, 2020 which showed a hemoglobin level of 7.5.Patient's baseline hemoglobin looks to be around 12. 1330: Vital signs stable. Patient's hemoglobin is stable from his hemoglobin yesterday.CTA of the chest negative for PE but does show new lesions suspicious for metastatic disease. Rectal exam was performed and the patient is having melanotic stools and is Hemoccult positive. Given the patient's low hemoglobin level, difficulty breathing with exertion, as well as new suspicious malignant lesions, it was thought that would be best for the patient to be admitted to the hospital to be evaluated by GI and pulmonology. Protonix bolus and drip was started in the emergency department. Patient will be admitted to the [facility] hospitalist team Dr. Guillen's team will be notified. Administered Medications Pantoprazole Sodium 40 mg/ (Dextrose) 100 mls @ 20 mls/hr IV Q5H JOCELYN Stop: 10/18/20 13:29 Last Admin: 09/18/20 14:29 Dose: 8 mg/hr, 20 mls/hr Documented by: [id number] Discontinued Medications Pantoprazole Sodium 80 mg/ (Dextrose) 120 mls @ 400 mls/hr IV NOW ONE Stop: 09/18/20 13:33 Last Infusion: 09/18/20 14:43 Dose: 0 mls/hr Documented by: [id number] Admin: 09/18/20 14:14 Dose: 400 mls/hr Documented by: [id number] Ioversol (Optiray 320 125ml) 118 ml IV ONCE ONE Stop: 09/18/20 12:10 Last Admin: 09/18/20 12:10 Dose: 118 ml Documented by: [id number] Oxycodone/Acetaminophen (Oxycodone/Acetaminophen 10-325 Tab) 1 tab PO NOW STA Stop: 09/18/20 13:47 Last Admin: 09/18/20 14:14 Dose: 1 tab Documented by: [id number] Medical Decision Making Laboratory Data Result diagrams: 09/18/20 10:45 09/18/20 10:45 Lab Results 09/18/20 09/18/20 09/18/20 Range/Units 10:45 10:45 10:45 WBC 6.38 (4.8-10.8) K/uL RBC 3.16 L (4.7-6.1) M/uL Hgb 7.5 L (14.0-18.0) g/dL Hct 24.7 L (42-52) % MCV 78.2 L (80-100) fL MCH 23.7 L (25-34) pg MCHC 30.4 L (32-36) g/dL RDW Std Deviation 45.9 (36.4-46.3) fL RDW Coeff of Stephanie 16.0 H (11.5-14.5) % Plt Count 313 (130-400) K/uL MPV 8.4 (7.4-10.4) fL Immature Gran % (Auto) 0.2 % Neut % (Auto) 90.0 % Lymph % (Auto) 6.1 % [place] % (Auto) 3.0 % Eos % (Auto) 0.2 % Baso % (Auto) 0.5 % Neut # (Auto) 5.75 (1.4-6.5) K/uL Lymph # (Auto) 0.39 L (1.2-3.4) K/uL [place] # (Auto) 0.19 (0.11-0.59) K/uL Eos # (Auto) 0.01 (0-0.5) K/uL Baso # (Auto) 0.03 (0-0.2) K/uL Immature Gran # (Auto) 0.01 (0.00-0.02) K/uL Polychromasia 1+ Hypochromasia Present PT 9.8 (9.0-12.0) Seconds INR 1.0 (0.9-1.1) APTT 23.9 (21.0-31.0) Seconds PTT Ratio 0.9 VBG pH (7.36-7.41) VBG pCO2 (38-50) mmHg VBG pO2 mmHg VBG HCO3 mmol/L VBG O2 Saturation % VBG Base Excess mEq/L Barometric Pressure mm/Hg Sodium 140 (136-145) mmol/L Potassium 4.0 (3.5-5.1) mmol/L Chloride 104 (98-107) mmol/L Carbon Dioxide 29 (21-32) mmol/L Anion Gap 7.0 (3-11) BUN 19 H (7-18) mg/dl Creatinine 0.72 (0.6-1.4) mg/dl Est Cr Clr Drug Dosing Not Reportable Est GFR ( Amer) 111.1 Est GFR (Non-Af Amer) 95.9 BUN/Creatinine Ratio 26.8 H (10-20) Glucose 112 H (70-99) mg/dl Calcium 8.7 (8.5-10.1) mg/dl Magnesium 2.4 (1.8-2.4) mg/dl Total Bilirubin 0.2 (0.2-1) mg/dl Direct Bilirubin < 0.1 (0-0.2) mg/dl AST 11 L (15-37) U/L ALT 20 (12-78) U/L Alkaline Phosphatase 91 (45-117) U/L Troponin I < 0.015 (0-0.045) ng/ml NT-Pro-B Natriuret Pep 241 (0-900) pg/ml Total Protein 7.2 (6.4-8.2) gm/dl Albumin 3.7 (3.4-5.0) gm/dl Lipase 88 (73-393) U/L COVID-19 Eval Order SARS-CoV-2, RNA, NAAT (NEGATIVE) Blood Type Antibody Screen 09/18/20 09/18/20 09/18/20 Range/Units 10:48 10:49 10:57 WBC (4.8-10.8) K/uL RBC (4.7-6.1) M/uL Hgb (14.0-18.0) g/dL Hct (42-52) % MCV (80-100) fL MCH (25-34) pg MCHC (32-36) g/dL RDW Std Deviation (36.4-46.3) fL RDW Coeff of Stephanie (11.5-14.5) % Plt Count (130-400) K/uL MPV (7.4-10.4) fL Immature Gran % (Auto) % Neut % (Auto) % Lymph % (Auto) % [place] % (Auto) % Eos % (Auto) % Baso % (Auto) % Neut # (Auto) (1.4-6.5) K/uL Lymph # (Auto) (1.2-3.4) K/uL [place] # (Auto) (0.11-0.59) K/uL Eos # (Auto) (0-0.5) K/uL Baso # (Auto) (0-0.2) K/uL Immature Gran # (Auto) (0.00-0.02) K/uL Polychromasia Hypochromasia PT (9.0-12.0) Seconds INR (0.9-1.1) APTT (21.0-31.0) Seconds PTT Ratio VBG pH 7.41 (7.36-7.41) VBG pCO2 47 (38-50) mmHg VBG pO2 88 mmHg VBG HCO3 29 mmol/L VBG O2 Saturation 96.7 % VBG Base Excess 3.9 mEq/L Barometric Pressure 740.9 mm/Hg Sodium (136-145) mmol/L Potassium (3.5-5.1) mmol/L Chloride (98-107) mmol/L Carbon Dioxide (21-32) mmol/L Anion Gap (3-11) BUN (7-18) mg/dl Creatinine (0.6-1.4) mg/dl Est Cr Clr Drug Dosing Est GFR ( Amer) Est GFR (Non-Af Amer) BUN/Creatinine Ratio (10-20) Glucose (70-99) mg/dl Calcium (8.5-10.1) mg/dl Magnesium (1.8-2.4) mg/dl Total Bilirubin (0.2-1) mg/dl Direct Bilirubin (0-0.2) mg/dl AST (15-37) U/L ALT (12-78) U/L Alkaline Phosphatase (45-117) U/L Troponin I (0-0.045) ng/ml NT-Pro-B Natriuret Pep (0-900) pg/ml Total Protein (6.4-8.2) gm/dl Albumin (3.4-5.0) gm/dl Lipase (73-393) U/L COVID-19 Eval Order Covid19 IDNow atMVAC SARS-CoV-2, RNA, NAAT (NEGATIVE) Blood Type O Positive Antibody Screen NEGATIVE 09/18/20 Range/Units 10:57 WBC (4.8-10.8) K/uL RBC (4.7-6.1) M/uL Hgb (14.0-18.0) g/dL Hct (42-52) % MCV (80-100) fL MCH (25-34) pg MCHC (32-36) g/dL RDW Std Deviation (36.4-46.3) fL RDW Coeff of Stephanie (11.5-14.5) % Plt Count (130-400) K/uL MPV (7.4-10.4) fL Immature Gran % (Auto) % Neut % (Auto) % Lymph % (Auto) % [place] % (Auto) % Eos % (Auto) % Baso % (Auto) % Neut # (Auto) (1.4-6.5) K/uL Lymph # (Auto) (1.2-3.4) K/uL [place] # (Auto) (0.11-0.59) K/uL Eos # (Auto) (0-0.5) K/uL Baso # (Auto) (0-0.2) K/uL Immature Gran # (Auto) (0.00-0.02) K/uL Polychromasia Hypochromasia PT (9.0-12.0) Seconds INR (0.9-1.1) APTT (21.0-31.0) Seconds PTT Ratio VBG pH (7.36-7.41) VBG pCO2 (38-50) mmHg VBG pO2 mmHg VBG HCO3 mmol/L VBG O2 Saturation % VBG Base Excess mEq/L Barometric Pressure mm/Hg Sodium (136-145) mmol/L Potassium (3.5-5.1) mmol/L Chloride (98-107) mmol/L Carbon Dioxide (21-32) mmol/L Anion Gap (3-11) BUN (7-18) mg/dl Creatinine (0.6-1.4) mg/dl Est Cr Clr Drug Dosing Est GFR ( Amer) Est GFR (Non-Af Amer) BUN/Creatinine Ratio (10-20) Glucose (70-99) mg/dl Calcium (8.5-10.1) mg/dl Magnesium (1.8-2.4) mg/dl Total Bilirubin (0.2-1) mg/dl Direct Bilirubin (0-0.2) mg/dl AST (15-37) U/L ALT (12-78) U/L Alkaline Phosphatase (45-117) U/L Troponin I (0-0.045) ng/ml NT-Pro-B Natriuret Pep (0-900) pg/ml Total Protein (6.4-8.2) gm/dl Albumin (3.4-5.0) gm/dl Lipase (73-393) U/L COVID-19 Eval Order SARS-CoV-2, RNA, NAAT NEGATIVE (NEGATIVE) Blood Type Antibody Screen Imaging Data Radiologist's Impression: XR chest 1V portable CLINICAL HISTORY: hemoptysis sob COMPARISON STUDY: 09/17/2020 FINDINGS: There is radiographic evidence of pulmonary emphysema. There is stable right hilar enlargement. There is a persistent 5 cm left infrahilar opacity. There is blunting of the right lateral costophrenic angle. A trace effusion cannot be excluded. There is an equivocal 27 mm right upper lung zone airspace opacity.[ IMPRESSION: 1. Equivocal new 27 mm right upper lung zone airspace opacity. If a real finding, this is likely infectious/inflammatory 2. Stable right hilar enlargement 3. Stable 5 cm left infrahilar opacity 4. Suspected trace right pleural effusion ACT 112: Negative or not required by law. Electronically signed by: Gentry Tsang M.D. 09/18/2020 11:26 AM Dictated: 09/18/20 1124 Transcribed: 09/18/[address] ANGIOGRAM OF THE CHEST CLINICAL HISTORY: Dyspnea. Hemoptysis. Lung cancer. COMPARISON STUDY: Chest CT scans dated 01/30/2020 and 10/21/2017. TECHNIQUE: Following the IV administration of 118 cc of Optiray 320, CT angiogram of the chest was performed from the upper abdomen to the thoracic inlet utilizing the pulmonary embolus protocol. Images are reviewed in the axial, sagittal, and coronal planes. 3-D MIPS images are created and assessed. IV contrast was administered without complication. A dose lowering technique was utilized adhering to the principles of ALARA. CT DOSE: 485.75 mGycm FINDINGS: Thyroid: Imaged portions of the thyroid gland are normal in size and attenuation. Thoracic aorta: There is atherosclerotic calcification of the thoracic aorta, which is normal in caliber and demonstrates standard 3-vessel arch anatomy. No dissection is seen. Pulmonary vasculature: The pulmonary trunk is dilated, measuring 3.6 cm in diameter. This suggests pulmonary artery hypertension. There are no filling defects identified in main, lobar, or segmental pulmonary branches to suggest pulmonary embolus. Heart: The heart is normal in size and without pericardial effusion. The coronary arteries are densely calcified. Lungs and pleural spaces: Advanced emphysematous change is noted. There is postoperative change from right-sided pulmonary resection. A left infrahilar nodular density measuring approximately 3 cm similar to previous. Bandlike fibrosis is again seen in the left lower lobe. There is no airspace consolidation typical for pneumonia. Trace pleural fluid and pleural thickening is again seen at the right lung base. There is a 9 mm irregular pulmonary nodule in the superior segment of the right lower lobe seen on image #176. This is new from previous, as is a 11 mm nodular density in the left lower lobe seen on image #100. Secretions are noted within the distal trachea and mainstem bronchi. There is diffuse peribronchial thickening. Mediastinum: Scattered subcentimeter mediastinal lymph nodes are not pathologically enlarged by size criteria. Carolynn: Clear. Axillae: There is no axillary lymphadenopathy. Upper abdomen: Partially visualized upper abdominal viscera is within normal limits. Skeletal structures: The skeletal structures are osteopenic. No lytic or blastic bony lesions are seen. There are numerous healed bilateral rib fractures. There are subacute/healing bilateral rib fractures, as well as subacute/healing fracture through the body of the sternum. Fusion hardware is noted in the lower cervical spine. IMPRESSION: 1. There is no evidence of pulmonary embolus in the main, lobar, or segmental pulmonary arteries. 2. Advanced emphysema and postoperative change from right-sided pulmonary resection. 3. There is no airspace consolidation typical for pneumonia. 4. An irregular 3 cm left infrahilar nodular density is similar to previous, as is bandlike fibrosis in the left lower lobe. 4. A 9 mm nodule in the right lower lobe and an 11 mm nodule in the left lower lobe are new from previous and concerning for progressive metastatic disease. 5. Diffuse peribronchial thickening suggests bronchitis/reactive airway disease. Clinical correlation will be required. 6. There are subacute/healing fractures involving the body of the sternum and several bilateral ribs. 7. Additional findings as above. ACT 112: Negative or not required by law. Electronically signed by: Alex Taylor M.D. 09/18/2020 12:56 PM Dictated: 09/18/20 1242 Transcribed: 09/18/20 1242 ECG Data Indication: + SOB/dyspnea Rate (beats per minute): 114 Rhythm: + normal sinus ECG Intervals/blocks: + Normal QRS, + Normal [place] and + Normal QT-c ECG ST segments: + Normal ST segments MDM Narrative 1015: The patient was evaluated in room C4. A complete history and physical exam was performed. Cardiac monitoring: An order was placed for continuous cardiac monitoring. The monitor shows a rate of 115 with Sinus tachycardia rhythm EMR reviewed. Patient had blood work done yesterday September 17, 2020 which showed a hemoglobin level of 7.5.Patient's baseline hemoglobin looks to be around 12. 1330: Vital signs stable. Patient's hemoglobin is stable from his hemoglobin yesterday.CTA of the chest negative for PE but does show new lesions suspicious for metastatic disease. Rectal exam was performed and the patient is having melanotic stools and is Hemoccult positive. Given the patient's low hemoglobin level, difficulty breathing with exertion, as well as new suspicious malignant lesions, it was thought that would be best for the patient to be admitted to the hospital to be evaluated by GI and pulmonology. Protonix bolus and drip was started in the emergency department. Patient will be admitted to the [facility] hospitalist team Dr. Guillen's team will be notified. Impression & Plan GIB (gastrointestinal bleeding), Lung cancer Discharge Plan Visit Data Chief Complaint: Abnormal Labs/Diagnostic Testing Stated Complaint: DR MILNER REF RED BLOOD COUNT LOW ED Provider: Gerry Caputo Discharge Problem: GIB (gastrointestinal bleeding), Lung cancer Patient Disposition: Being Evaluated by Hospitalist Forms Stand Alone Forms: My [facility] Prescriptions Prescriptions: No Action Symbicort 160-4.5 mcg/actuation HFA aerosol inhaler 2 puffs INH BID RF: 0 Benefiber Sugar Free (dextrin) 3 gram/3.8 gram powder 1.5 gm PO DAILY PRN (Reason: constipation) RF: 0 loperamide [Imodium A-D] 1 mg/7.5 mL liquid 2 mg feeding tube Q4H PRN (Reason: Diarrhea) RF: 0 azithromycin [Zithromax] 250 mg tablet 500 mg feeding tube UD Qty: 24 RF: 5 lansoprazole 30 mg capsule,delayed release(DR/EC) 30 mg feeding tube BID Qty: 60 RF: 5 (DME) Oxygen Home Liters Per Minute See Dose Instructions .ROUTE .MEDSUPPLY Qty: 1 RF: 0 buspirone 10 mg tablet 10 mg PO BID Qty: 60 RF: 2 levothyroxine 137 mcg capsule 137 mcg feeding tube DAILY RF: 0 oxycodone 5 mg capsule 10 mg feeding tube Q6H RF: 0 prednisone 5 mg tablet 5 mg PO DAILY Qty: 90 RF: 0 Spiriva Respimat 2.5 mcg/actuation mist 2 inh inhalation QAM Qty: 4 RF: 2 fentanyl 12 mcg/hr patch 72 hour 1 patch transdermal Q72H Qty: 1 RF: 0 prednisone 10 mg tablet 10 mg feeding tube DIRECTED RF: 0 potassium chloride 40 mEq/15 mL Liquid 0 meq Feeding Tube DAILY RF: 0 gabapentin 300 mg capsule 0 mg Feeding Tube BID RF: 0 ipratropium-albuterol 0.5 mg-3 mg(2.5 mg base)/3 mL solution for nebulization 3 ml INHALATION TID RF: 0 fentanyl 25 mcg/hr patch 72 hour 1 patch TRANSDERMAL Q72H RF: 0 Nutren 2.0 0.08 gram-2 kcal/mL liquid 2 ea Feeding Tube BID RF: 0 loratadine 10 mg tablet 10 mg Feeding Tube DAILY PRN (Reason: Allergic Reaction) RF: 0 ipratropium-albuterol 20-100 mcg/actuation Mist 1 puff INHALATION QID PRN (Reason: cough or shortness of breath) Qty: 1 RF: 0 losartan 25 mg tablet 25 mg feeding tube DAILY RF: 0 mirtazapine 45 mg tablet 45 mg feeding tube HS RF: 0 Referrals Referrals: Chapito Milner DO [Primary Care Provider] - Discharge Problem: GIB (gastrointestinal bleeding) Qualifiers: GI bleed type/associated pathology: melena Qualified Code(s): K92.1 - Melena Lung cancer Qualifiers: Laterality: unspecified laterality Lung location: unspecified part of lung Qualified Code(s): C34.90 - Malignant neoplasm of unspecified part of unspecified bronchus or lung
[2020-09-18] MEDS ORDERED: LORATADINE 10 MG TAB GT PRN (17:51)
[2020-09-18] MEDS ORDERED: IPRATROPIUM BROMIDE/ALBUTEROL respimat INH INH PRN (17:51)
[2020-09-18] MEDS ORDERED: SODIUM CHLORIDE 0.9% 250 ML IV PRN (17:51)
[2020-09-18] MEDS ORDERED: ONDANSETRON INJ 2 MG/ML 2 ML VIAL IV PRN (17:51)
[2020-09-18] MEDS ORDERED: CONSULT PHARMACY STA (17:51)
[2020-09-18] MEDS ORDERED: ALUMINUM/MAGNESIUM SUSP 30 ML UDC GT PRN (18:30)
[2020-09-18] MEDS ORDERED: ACETAMINOPHEN 325 MG TAB PEG PRN (18:30)
[2020-09-18] MEDS ORDERED: Albuterol HFA 8 GM Inhaler (Combivent Respimat P&T Subs) INH PRN (18:44)
[2020-09-18] MEDS ORDERED: Ipratropium HFA Inhaler (Combivent Respimat P&T Subs) INH PRN (18:44)
[2020-09-18] MEDS: ALBUT/IPRATROP 3MG/0.5MG NEB 3 ML VIAL INH SCH (19:19)
[2020-09-18] MEDS ORDERED: PSYLLIUM 58.6% POWDER PACKET PO PRN (19:28)
[2020-09-18] MEDS: SODIUM CHLORIDE 0.9% 1000ML 1,000 ML IV SCH (19:41)
[2020-09-18] MEDS: CHECK fentaNYL PATCH PLACEMENT SCH ×3 (19:42→23:51)
[2020-09-18] MEDS ORDERED: GABAPENTIN 300 MG CAP PO SCH ×2 (20:00→21:00)
[2020-09-18] MEDS ORDERED: predniSONE 10 MG TABLET GT SCH (20:00)
[2020-09-18] MEDS: oxyCODONE HCL IR 5 MG TAB (IMMEDIATE RELEASE) PEG PRN (20:37)
[2020-09-18] MEDS: PANTOprazole 40 MG in SYRINGE 0 ML IV SCH (20:38)
[2020-09-18] MEDS: busPIRone 5 MG TAB PO SCH (20:38)
[2020-09-18] MEDS: GABAPENTIN 300 MG CAP PO SCH (20:38)
[2020-09-18] MEDS: LEVOTHYROXINE SODIUM 75 MCG TABLET GT SCH (20:39)
[2020-09-18] MEDS ORDERED: busPIRone 5 MG TAB PO SCH (21:00)
[2020-09-18] MEDS: predniSONE 5 MG TAB PEG SCH (21:34)
[2020-09-18] MEDS: LOSARTAN POTASSIUM 25 MG TAB GT SCH (21:35)
[2020-09-19] MEDS ORDERED: busPIRone 5 MG TAB PO SCH ×2
[2020-09-19] MEDS ORDERED: GABAPENTIN 300 MG CAP PO SCH
[2020-09-19] MEDS ORDERED: LEVOTHYROXINE SODIUM 75 MCG TABLET GT SCH
[2020-09-19] MEDS: SODIUM CHLORIDE 0.9% 1000ML 1,000 ML IV SCH (05:47)
[2020-09-19 06:10] LABS: Hematocrit (blood only) 25.9 % (42-52); Hemoglobin 7.9 g/dL (14.0-18.0); Mean Corpuscular Hemoglobin 24.5 pg (25-34); Mean Corpuscular Hgb Conc 30.5 g/dL (32-36); Mean Corpuscular Volume 80.4 fL (80-100); Mean Platelet Volume 8.7 fL (7.4-10.4); Platelet Count 306 K/uL (130-400); RDW Coefficient of Variation 16.2 % (11.5-14.5); RDW Standard Deviation 48.1 fL (36.4-46.3); Red Blood Count 3.22 M/uL (4.7-6.1); White Blood Count 6.93 K/uL (4.8-10.8)
[2020-09-19 06:37] LABS: Calcium 8.4 mg/dl (8.5-10.1); Creatinine Clr Calc Pharmacy 98.2 ml/min; Est GFR (African American) 111.1; Est GFR (Non-African American) 95.9; Potassium 4.5 mmol/L (3.5-5.1)
[2020-09-19 07:06] LABS: Folate (Folic Acid) > 20.00 ng/ml (>5.38); Vitamin B12 702 pg/ml (193-986)
[2020-09-19] MEDS: ALBUT/IPRATROP 3MG/0.5MG NEB 3 ML VIAL INH SCH ×2 (07:18→13:12)
[2020-09-19] MEDS: busPIRone 5 MG TAB PO SCH (07:58)
[2020-09-19] MEDS: GABAPENTIN 300 MG CAP PO SCH (07:59)
[2020-09-19] MEDS: PANTOprazole 40 MG in SYRINGE 0 ML IV SCH (07:59)
[2020-09-19] MEDS: oxyCODONE HCL IR 5 MG TAB (IMMEDIATE RELEASE) PEG PRN ×2 (08:00→14:23)
[2020-09-19] MEDS: predniSONE 5 MG TAB PEG SCH (08:02)
[2020-09-19] MEDS: LEVOTHYROXINE SODIUM 75 MCG TABLET GT SCH (08:03)
[2020-09-19] MEDS: CHECK fentaNYL PATCH PLACEMENT SCH ×4 (08:04→15:36)
[2020-09-19] MEDS ORDERED: LEVOTHYROXINE 137 MCG feeding tube SCH (09:00)
[2020-09-19] MEDS ORDERED: UMECLIDINIUM BROMIDE 62.5MCG/BLISTER 7 PUFFS/INHALER INH SCH (09:00)
[2020-09-19] MEDS ORDERED: FLUTICASONE/VILANTEROL 100/25MCG 14 PUFFS/INHALER INH SCH (09:00)
--- NOTE | 2020-09-19 09:25 | Hospitalist Progress Note ---
Date of Service September 19, 2020 Assessment & Plan Admission and Anticipated Discharge Date Admission Date: September 18, 2020 Assessment 70 year old male who was admitted upon referral from his PCP due to concern of anemia and worsening dyspnea and labs support a microcytic anemia but should still be evaluated for possible GI bleed. DDx - iron deficiency anemia, GI bleed, Possible causes for his anemia include an iron deficiency anemia vs. a GI bleed. Iron deficiency anemia is supported by his current lab work showing a microcytic anemia with a low iron and elevated TIBC. Although, because of his recent aspirin use and the inability to distinguish blood in his dark stools due to chronic anti-diarrheal use, GI bleed is not ruled out. Further work up of a Hemoccult test and EGD is necessary to evaluate. 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 He says his breathing has been worse more recently, specifically this past week and he has had to use his rescue inhaler more often (a few times a day) and it provides relief. He is getting short of breath from walking a few feet. He is feeling well currently. He feels that once he got to the hospital, even before the blood transfusion, he felt calmed and as a result could breathe better. He experienced headaches and discomfort overnight that he attributes to not getting his routine pain medications on time and his flow rate not being adequate (he is on 3L at home but was on 2L last night). He has been taking aspirin for headaches. He is unsure if his breathing has improved enough to walk around. He has experienced unintentional weight gain, possibly because of prednisone use and following his lung cancer treatment. He is generally anxious and wary of hospitals. Other ROS were negative. Review of Systems Review of Systems: ROS Constitutional: -fever/chills, -nausea, -vomiting, Head: -LOC, -change in vision, -lightheadedness Neurologic: -syncope, -focal weakness, -numbness, -dizziness Cardiac: -chest pain, -edema Pulm: +cough, +sputum production, -hemoptyses, +SOB, -pain on inspiration, Skin: -itching, -rashes GI: -diarrhea, - constipation, -abdominal pain, +-istention Physical Exam Physical Exam: Physical Exam: General: alert and oriented, in no acute distress, anxious Eyes: pupils equal/round, reactive to light, no scleral icterus Neck: no lymphadenopathy, no JVD Cardio: RRR, no rubs/ gallop, normal capillary refill, no lower extremity edema Lungs: symmetrical b/l entry, diminished on LLQ, normal effort, clear to auscultation, expiratory phase prolonged Abdominal: active but decreased bowel sounds, abdomen non-distended non-tender Results & Data Results & Data ([facility]) Vital Signs (Past 12 Hours) Vital Signs Temp Pulse Pulse Resp BP Pulse Ox 09/19/20 07:19 81 20 95 09/19/20 02:47 98 H 09/19/20 02:43 36.7 C 102 H 19 134/80 96 09/18/20 23:04 36.5 C 100 H 19 167/77 H 94 Laboratory Results 09/19/20 09/19/20 09/19/20 Range/Units 05:50 05:50 05:50 WBC 6.93 (4.8-10.8) K/uL RBC 3.22 L (4.7-6.1) M/uL Hgb 7.9 L (14.0-18.0) g/dL Hct 25.9 L (42-52) % MCV 80.4 (80-100) fL MCH 24.5 L (25-34) pg MCHC 30.5 L (32-36) g/dL RDW Std Deviation 48.1 H (36.4-46.3) fL RDW Coeff of Stephanie 16.2 H (11.5-14.5) % Plt Count 306 (130-400) K/uL MPV 8.7 (7.4-10.4) fL Immature Gran % (Auto) % Neut % (Auto) % Lymph % (Auto) % [place] % (Auto) % Eos % (Auto) % Baso % (Auto) % Neut # (Auto) (1.4-6.5) K/uL Lymph # (Auto) (1.2-3.4) K/uL [place] # (Auto) (0.11-0.59) K/uL Eos # (Auto) (0-0.5) K/uL Baso # (Auto) (0-0.2) K/uL Immature Gran # (Auto) (0.00-0.02) K/uL Polychromasia Hypochromasia PT (9.0-12.0) Seconds INR (0.9-1.1) APTT (21.0-31.0) Seconds PTT Ratio VBG pH (7.36-7.41) VBG pCO2 (38-50) mmHg VBG pO2 mmHg VBG HCO3 mmol/L VBG O2 Saturation % VBG Base Excess mEq/L Barometric Pressure mm/Hg Sodium 143 (136-145) mmol/L Potassium 4.5 (3.5-5.1) mmol/L Chloride 108 H (98-107) mmol/L Carbon Dioxide 31 (21-32) mmol/L Anion Gap 4.0 (3-11) BUN 16 (7-18) mg/dl Creatinine 0.72 (0.6-1.4) mg/dl Est Cr Clr Drug Dosing 98.2 Est GFR ( Amer) 111.1 Est GFR (Non-Af Amer) 95.9 BUN/Creatinine Ratio 22.0 H (10-20) Glucose 104 H (70-99) mg/dl Calcium 8.4 L (8.5-10.1) mg/dl Magnesium (1.8-2.4) mg/dl Iron 20 L (35-175) mcg/dl TIBC 490 H (250-450) mcg/dl Total Bilirubin (0.2-1) mg/dl Direct Bilirubin (0-0.2) mg/dl AST (15-37) U/L ALT (12-78) U/L Alkaline Phosphatase (45-117) U/L Troponin I (0-0.045) ng/ml NT-Pro-B Natriuret Pep (0-900) pg/ml Total Protein (6.4-8.2) gm/dl Albumin (3.4-5.0) gm/dl Lipase (73-393) U/L Vitamin B12 702 (193-986) pg/ml Folate > 20.00 (>5.38) ng/ml SARS-CoV-2, RNA, NAAT (NEGATIVE) Blood Type Antibody Screen Crossmatch 09/18/20 09/18/20 09/18/20 Range/Units 10:57 10:49 10:48 WBC (4.8-10.8) K/uL RBC (4.7-6.1) M/uL Hgb (14.0-18.0) g/dL Hct (42-52) % MCV (80-100) fL MCH (25-34) pg MCHC (32-36) g/dL RDW Std Deviation (36.4-46.3) fL RDW Coeff of Stephanie (11.5-14.5) % Plt Count (130-400) K/uL MPV (7.4-10.4) fL Immature Gran % (Auto) % Neut % (Auto) % Lymph % (Auto) % [place] % (Auto) % Eos % (Auto) % Baso % (Auto) % Neut # (Auto) (1.4-6.5) K/uL Lymph # (Auto) (1.2-3.4) K/uL [place] # (Auto) (0.11-0.59) K/uL Eos # (Auto) (0-0.5) K/uL Baso # (Auto) (0-0.2) K/uL Immature Gran # (Auto) (0.00-0.02) K/uL Polychromasia Hypochromasia PT (9.0-12.0) Seconds INR (0.9-1.1) APTT (21.0-31.0) Seconds PTT Ratio VBG pH 7.41 (7.36-7.41) VBG pCO2 47 (38-50) mmHg VBG pO2 88 mmHg VBG HCO3 29 mmol/L VBG O2 Saturation 96.7 % VBG Base Excess 3.9 mEq/L Barometric Pressure 740.9 mm/Hg Sodium (136-145) mmol/L Potassium (3.5-5.1) mmol/L Chloride (98-107) mmol/L Carbon Dioxide (21-32) mmol/L Anion Gap (3-11) BUN (7-18) mg/dl Creatinine (0.6-1.4) mg/dl Est Cr Clr Drug Dosing Est GFR ( Amer) Est GFR (Non-Af Amer) BUN/Creatinine Ratio (10-20) Glucose (70-99) mg/dl Calcium (8.5-10.1) mg/dl Magnesium (1.8-2.4) mg/dl Iron (35-175) mcg/dl TIBC (250-450) mcg/dl Total Bilirubin (0.2-1) mg/dl Direct Bilirubin (0-0.2) mg/dl AST (15-37) U/L ALT (12-78) U/L Alkaline Phosphatase (45-117) U/L Troponin I (0-0.045) ng/ml NT-Pro-B Natriuret Pep (0-900) pg/ml Total Protein (6.4-8.2) gm/dl Albumin (3.4-5.0) gm/dl Lipase (73-393) U/L Vitamin B12 (193-986) pg/ml Folate (>5.38) ng/ml SARS-CoV-2, RNA, NAAT NEGATIVE (NEGATIVE) Blood Type O Positive Antibody Screen NEGATIVE Crossmatch See Detail 09/18/20 09/18/20 09/18/20 Range/Units 10:45 10:45 10:45 WBC 6.38 (4.8-10.8) K/uL RBC 3.16 L (4.7-6.1) M/uL Hgb 7.5 L (14.0-18.0) g/dL Hct 24.7 L (42-52) % MCV 78.2 L (80-100) fL MCH 23.7 L (25-34) pg MCHC 30.4 L (32-36) g/dL RDW Std Deviation 45.9 (36.4-46.3) fL RDW Coeff of Stephanie 16.0 H (11.5-14.5) % Plt Count 313 (130-400) K/uL MPV 8.4 (7.4-10.4) fL Immature Gran % (Auto) 0.2 % Neut % (Auto) 90.0 % Lymph % (Auto) 6.1 % [place] % (Auto) 3.0 % Eos % (Auto) 0.2 % Baso % (Auto) 0.5 % Neut # (Auto) 5.75 (1.4-6.5) K/uL Lymph # (Auto) 0.39 L (1.2-3.4) K/uL [place] # (Auto) 0.19 (0.11-0.59) K/uL Eos # (Auto) 0.01 (0-0.5) K/uL Baso # (Auto) 0.03 (0-0.2) K/uL Immature Gran # (Auto) 0.01 (0.00-0.02) K/uL Polychromasia 1+ Hypochromasia Present PT 9.8 (9.0-12.0) Seconds INR 1.0 (0.9-1.1) APTT 23.9 (21.0-31.0) Seconds PTT Ratio 0.9 VBG pH (7.36-7.41) VBG pCO2 (38-50) mmHg VBG pO2 mmHg VBG HCO3 mmol/L VBG O2 Saturation % VBG Base Excess mEq/L Barometric Pressure mm/Hg Sodium 140 (136-145) mmol/L Potassium 4.0 (3.5-5.1) mmol/L Chloride 104 (98-107) mmol/L Carbon Dioxide 29 (21-32) mmol/L Anion Gap 7.0 (3-11) BUN 19 H (7-18) mg/dl Creatinine 0.72 (0.6-1.4) mg/dl Est Cr Clr Drug Dosing Not Reportable Est GFR ( Amer) 111.1 Est GFR (Non-Af Amer) 95.9 BUN/Creatinine Ratio 26.8 H (10-20) Glucose 112 H (70-99) mg/dl Calcium 8.7 (8.5-10.1) mg/dl Magnesium 2.4 (1.8-2.4) mg/dl Iron (35-175) mcg/dl TIBC (250-450) mcg/dl Total Bilirubin 0.2 (0.2-1) mg/dl Direct Bilirubin < 0.1 (0-0.2) mg/dl AST 11 L (15-37) U/L ALT 20 (12-78) U/L Alkaline Phosphatase 91 (45-117) U/L Troponin I < 0.015 (0-0.045) ng/ml NT-Pro-B Natriuret Pep 241 (0-900) pg/ml Total Protein 7.2 (6.4-8.2) gm/dl Albumin 3.7 (3.4-5.0) gm/dl Lipase 88 (73-393) U/L Vitamin B12 (193-986) pg/ml Folate (>5.38) ng/ml SARS-CoV-2, RNA, NAAT (NEGATIVE) Blood Type Antibody Screen Crossmatch
--- NOTE | 2020-09-19 10:51 | Gastrointestinal Consultation ---
Date of Consultation September 19, 2020 Assessment & Plan (1) Anemia: (2) Dyspnea: PT is a 70 yo male w hx of supraglottis, lung ca s/p lobectomy, XRT, chemo, has PEG for feedings, COPD on chronic O2 who presented w SOB. COVID 19 negative, lung imaging showed advanced emphysema, bronchitis/airway disease and new lung nodules ? mets processes. He is also noted to have new microcytic anemia, low iron, but normal B12 and FA levels. Stools chronically black in color as he's been taking Peptobismol to help form up stools and has intermittent hematochezia when wiping rectum too often. He has hx of GOO needing PEG replacement last year, and recently been taking high doses ASA for MCNEILL, on chronic Prednisone. Plan to peform EGD eval to r/o PUD, gastritis, other sources of possible UGI bleed. Will keep him NPO and on PPI IV BID dose for now. EGD today vs tomorrow depending on endoscopy time availability Supervising Physician Co-Signing Physician Notes Attg add: I interviewed and examined pt, reviewed chart and labs. Pt admit with symptomatic anemia. Reports dark stool, on pepto + ASA + pred. EGd today. History of Present Illness Reason for Consultation: Microcytic anemia, melena Requesting Physician: Dr. Mary Aldridge Attending Physician: Dr. Gregor Calvin History of Present Illness Pt is a 70 y/o male w PMHx of supraglottis and lung ca s/p lobectomy, XRT, chemo (ended over a year ago per pt), COPD on chronic O2 3L who presented w c/o SOB. COVID 19 negative. CTA chest and CXR w signs of new lung nodules ? new mets disease , advanced emphysema and possible bronchitis/airway disease. It's noted that he also has new finding of microcytic anemia. Hgb on baseline 11 , now 7. He denies abd pain, n/v. Noted stools have been black though not tarry since he is taking Peptobismol to help form up stool consistency. Intermittent hematochezia if he is wiping rectum area too much. He is only sipping water by mouth but receiving feeds through his PEG tube. Hx of GOO, needing PEG replacement last year. Anemia workup showed low iron but normal B12 and FA levels. He denies tobacco, ETOH, illicit drugs. He had been on chronic Prednisone for his lung disease and after ca treatment, also recently taking full dose ASA for HAs. Allergies Allergy/AdvReac Type Severity Reaction Status Date / Time NSAIDS (Non-Steroidal AdvReac Mild upset Verified 09/18/20 13:34 Anti-Inflamma stomach Home Medications Medication Instructions Recorded Confirmed Type potassium chloride 0 meq FEEDING TUBE DAILY 05/11/18 09/18/20 History budesonide-formoterol HFA 160 2 puffs INH BID 02/15/19 09/18/20 History mcg-4.5 mcg/actuation aerosol inhaler loperamide 1 mg/7.5 mL oral liquid 2 mg FEEDING TUBE Q4H PRN 02/15/19 09/18/20 History wheat dextrin 3 gram/3.8 gram oral 1.5 gm PO DAILY PRN gm 02/15/19 09/18/20 History powder levothyroxine 137 mcg capsule 137 mcg FEEDING TUBE DAILY 05/19/19 09/18/20 History gabapentin 300 mg capsule 0 mg FEEDING TUBE BID cap 07/10/19 09/18/20 History ipratropium 0.5 mg-albuterol 3 mg 3 ml INHALATION TID ml 01/15/20 09/18/20 History (2.5 mg base)/3 mL nebulization soln ipratropium-albuterol 1 puff INHALATION QID PRN #1 01/31/20 09/18/20 Rx inhaler fentanyl 25 mcg/hr transdermal 1 patch TRANSDERMAL Q72H 03/01/20 09/18/20 History patch nutritional supplements 0.08 2 ea FEEDING TUBE BID 03/27/20 09/18/20 History gram-2 kcal/mL liquid for tube feed oxycodone 5 mg capsule 10 mg FEEDING TUBE Q6H cap 03/27/20 09/18/20 History azithromycin 250 mg tablet 500 mg FEEDING TUBE UD #24 tab 04/16/20 09/18/20 Rx lansoprazole 30 mg capsule,delayed 30 mg FEEDING TUBE BID #60 cap 04/17/20 09/18/20 Rx release Oxygen Home #1 ea 05/22/20 09/17/20 Rx loratadine 10 mg tablet 10 mg FEEDING TUBE DAILY PRN 05/28/20 09/18/20 History prednisone 10 mg tablet 10 mg FEEDING TUBE DIRECTED tab 05/28/20 09/18/20 History buspirone 10 mg tablet 10 mg PO BID #60 tab 05/29/20 09/18/20 Rx prednisone 5 mg tablet 5 mg PO DAILY #90 tab 06/12/20 09/18/20 Rx tiotropium bromide 2.5 2 inh INHALATION QAM #4 g 06/12/20 09/18/20 Rx mcg/actuation mist for inhalation fentanyl 12 mcg/hr transdermal 1 patch TRANSDERMAL Q72H #1 ea 09/17/20 09/18/20 Rx patch losartan 25 mg FEEDING TUBE DAILY 09/18/20 09/18/20 History mirtazapine 45 mg FEEDING TUBE HS 09/18/20 09/18/20 History Patient History Medical History Anxiety Cancer of supraglottis "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 Radiation completed 02/28/2010 received 7200 cGy Finding of asymmetry of larynx on the right. 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 Radiation completed 02/28/2010 received 7200 cGy Finding of asymmetry of larynx on the right. Plan for laryngoscopy and biopsy 01/27/2017 " Cervical stenosis of spinal canal Chronic low back pain [facility]" COPD (chronic obstructive pulmonary disease) "is on home oxygen" Hypothyroidism Insomnia Lung cancer (10/04/17) Mass of lower lobe of left lung Oxygen dependent Presence of externally removable percutaneous endoscopic gastrostomy (PEG) tube (~2019) Radiation fibrosis of lung Surgical History H/O cervical spine surgery H/O neck surgery right side Percutaneous endoscopic gastrostomy status S/P lobectomy of lung Family History Other No pertinent family history Denies family history of Ovarian cancer Prostate cancer Breast cancer Lung cancer Colorectal cancer Social History Smoking Status: Never smoker Tobacco Type: Cigarettes Second Hand Exposure: No; Hx Alcohol Use: No Hx Substance Use: No Preferred Language: Belgian Communication Ability: Effective Visual Impairment: No Limitations Hearing Ability: Normal 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 Beliefs That Will Affect Care: None marital status: Single Current Living Situation: Spouse current occupational status: retired Other Information That Helps Us Care for You: No Feels Safe at Home: Yes Safety Concerns: Feels Safe At This Time caffeine: No Dental Care, Regularly: Yes Physical Activity Frequency: Does not Exercise Seatbelt Use: always Sunscreen Use: Yes Assistive Devices: Oxygen - Continuous Review of Systems Review of Systems: All systems reviewed & are unremarkable except as noted in HPI & below Physical Exam Constitutional: WD/WN, vitals as above well groomed, cooperative and comfortable Eyes: PERRL, conjunctivae normal, anicteric sclerae ENMT: external ear and nose normal, oropharynx normal Respiratory: normal respiratory effort, lungs clear to auscultation Cardiovascular: RRR, no murmur, no edema Gastrointestinal (Abdomen): normal bowel sounds, soft, nontender, no hepatosplenomegaly PEG on mid upper abd area intact, no erythema, leakage Skin: no rashes, warm and dry no jaundice Psychiatric: A+Ox3, euthymic affect Lymphatic: no lymphedema Results & Data ([facility]) Vital Signs (Past 12 Hours) Vital Signs Temp Pulse Pulse Resp BP Pulse Ox 09/19/20 07:19 81 20 95 09/19/20 02:47 98 H 09/19/20 02:43 36.7 C 102 H 19 134/80 96 09/18/20 23:04 36.5 C 100 H 19 167/77 H 94
--- NOTE | 2020-09-19 11:19 | Anesthesiology Consultation ---
Date of Service September 19, 2020 Assessment & Plan (1) Encounter for pre-operative examination: Chart Review Chart Review: entry specialists initiated History Surgery Operation Date: 09/19/20 17:30 Proposed Procedures p Esophagogastroduodenoscopy Dr Sigala - Gregor Mariano MD Height/Weight Height: 5 ft 9 in Weight: 82.3 kg Allergies Allergy/AdvReac Type Severity Reaction Status Date / Time NSAIDS (Non-Steroidal AdvReac Mild upset Verified 09/18/20 13:34 Anti-Inflamma stomach Medications Home Medications Medication Instructions Recorded Confirmed Last Taken potassium chloride 0 meq FEEDING TUBE DAILY 05/11/18 09/18/20 01/29/20 budesonide-formoterol HFA 160 2 puffs INH BID 02/15/19 09/18/20 09/18/20 mcg-4.5 mcg/actuation aerosol inhaler loperamide 1 mg/7.5 mL oral liquid 2 mg FEEDING TUBE Q4H PRN 02/15/19 09/18/20 01/29/20 wheat dextrin 3 gram/3.8 gram oral 1.5 gm PO DAILY PRN gm 02/15/19 09/18/20 Unknown powder levothyroxine 137 mcg capsule 137 mcg FEEDING TUBE DAILY 05/19/19 09/18/20 09/18/20 gabapentin 300 mg capsule 0 mg FEEDING TUBE BID cap 07/10/19 09/18/20 01/29/20 ipratropium 0.5 mg-albuterol 3 mg 3 ml INHALATION TID ml 01/15/20 09/18/20 09/18/20 (2.5 mg base)/3 mL nebulization soln ipratropium-albuterol 1 puff INHALATION QID PRN #1 01/31/20 09/18/20 01/29/20 inhaler fentanyl 25 mcg/hr transdermal 1 patch TRANSDERMAL Q72H 03/01/20 09/18/20 Unknown patch nutritional supplements 0.08 2 ea FEEDING TUBE BID 03/27/20 09/18/20 Unknown gram-2 kcal/mL liquid for tube feed oxycodone 5 mg capsule 10 mg FEEDING TUBE Q6H cap 03/27/20 09/18/20 Unknown azithromycin 250 mg tablet 500 mg FEEDING TUBE UD #24 tab 04/16/20 09/18/20 09/18/20 lansoprazole 30 mg capsule,delayed 30 mg FEEDING TUBE BID #60 cap 04/17/20 09/18/20 09/18/20 release Oxygen Home #1 ea 05/22/20 09/17/20 Unknown loratadine 10 mg tablet 10 mg FEEDING TUBE DAILY PRN 05/28/20 09/18/20 Unknown prednisone 10 mg tablet 10 mg FEEDING TUBE DIRECTED tab 05/28/20 09/18/20 09/18/20 buspirone 10 mg tablet 10 mg PO BID #60 tab 05/29/20 09/18/20 09/18/20 prednisone 5 mg tablet 5 mg PO DAILY #90 tab 06/12/20 09/18/20 09/18/20 tiotropium bromide 2.5 2 inh INHALATION QAM #4 g 06/12/20 09/18/20 Unknown mcg/actuation mist for inhalation fentanyl 12 mcg/hr transdermal 1 patch TRANSDERMAL Q72H #1 ea 09/17/20 09/18/20 Unknown patch losartan 25 mg FEEDING TUBE DAILY 09/18/20 09/18/20 09/18/20 mirtazapine 45 mg FEEDING TUBE HS 09/18/20 09/18/20 Unknown Active Medications Generic Name Dose Route Start Last Admin Trade Name Freq PRN Reason Stop Dose Admin Albuterol 3 ml 09/18/20 19:00 09/19/20 07:18 Albut/Ipratrop 3mg/0.5mg Neb 3 Ml Vial INH 10/18/20 18:59 3 ml TIDR JOCELYN Administration Buspirone HCl 10 mg 09/18/20 20:00 09/19/20 07:58 Buspirone 5 Mg Tab PO 10/18/20 19:59 10 mg JOCELYN Administration Fluticasone/Vilanterol 1 puffs 09/19/20 09:00 09/19/20 08:02 Fluticasone/Vilanterol 100/25mcg 14 Puffs/Inhaler INH 10/19/20 08:59 1 puffs DAILY JOCELYN Administration Protocol Gabapentin 300 mg 09/18/20 20:00 09/19/20 07:59 Gabapentin 300 Mg Cap PO 10/18/20 19:59 300 mg JOCELYN Administration Pantoprazole Sodium 40 mg/ 10 mls @ 5 mls/min 09/18/20 21:00 09/19/20 07:59 Syringe IV 10/18/20 20:59 5 mls/min BID JOCELYN Administration Levothyroxine Sodium 75 mcg 09/18/20 20:00 09/19/20 08:03 Levothyroxine Sodium 75 Mcg Tablet GT 10/18/20 19:59 75 mcg Q12H JOCELYN Administration Losartan Potassium 25 mg 09/19/20 12:00 09/18/20 21:35 Losartan Potassium 25 Mg Tab GT 10/19/20 11:59 25 mg 1200 JOCELYN Administration Miscellaneous 1 ea 09/18/20 17:51 09/19/20 08:04 Check Fentanyl Patch Placement N/A 10/18/20 17:50 1 ea QS JOCELYN Administration Miscellaneous 1 ea 09/19/20 00:00 09/19/20 08:04 Check Fentanyl Patch Placement N/A 10/19/20 00:00 1 ea QS JOCELYN Administration Oxycodone HCl 5 mg 09/18/20 18:30 09/19/20 08:00 Oxycodone Hcl Ir 5 Mg Tab (Immediate Release) PEG 10/02/20 18:29 5 mg Q6H PRN Administration pain Prednisone 15 mg 09/18/20 20:00 09/19/20 08:02 Prednisone 5 Mg Tab PEG 10/18/20 19:59 15 mg DAILY JOCELYN Administration Psyllium Hydrophilic Mucilloid 1 pkt 09/18/20 19:28 09/18/20 21:35 Psyllium 58.6% Powder Packet PO 10/18/20 19:27 1 pkt DAILY PRN Administration constipation Umeclidinium Centuria 1 puffs 09/19/20 09:00 09/19/20 08:01 Umeclidinium Centuria 62.5mcg/Blister 7 Puffs/Inhaler INH 10/19/20 08:59 1 puffs DAILY JOCELYN Administration Protocol Past Medical History Medical History Anxiety Cancer of supraglottis "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 Radiation completed 02/28/2010 received 7200 cGy Finding of asymmetry of larynx on the right. 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 Radiation completed 02/28/2010 received 7200 cGy Finding of asymmetry of larynx on the right. Plan for laryngoscopy and biopsy 01/27/2017 " Cervical stenosis of spinal canal Chronic low back pain [facility]" COPD (chronic obstructive pulmonary disease) "is on home oxygen" Hypothyroidism Insomnia Lung cancer (10/04/17) Mass of lower lobe of left lung Oxygen dependent Presence of externally removable percutaneous endoscopic gastrostomy (PEG) tube (~2019) Radiation fibrosis of lung Past Family History Family History Other No pertinent family history Denies family history of Ovarian cancer Prostate cancer Breast cancer Lung cancer Colorectal cancer Past Surgical History Surgical History H/O cervical spine surgery H/O neck surgery right side Percutaneous endoscopic gastrostomy status S/P lobectomy of lung Social History Smoking Status: Never smoker Hx Alcohol Use: No Hx Substance Use: No substance use type: does not use Physical Exam Vital Signs Last Vital Signs Temp 98.1 F 09/19/20 02:43 Pulse 81 09/19/20 07:19 Resp 20 09/19/20 07:19 BP 134/80 09/19/20 02:43 Pulse Ox 95 09/19/20 07:19 Testing Laboratory Results 09/19/20 05:50 09/19/20 05:50 PT 9.8 Seconds (9.0-12.0) 09/18/20 10:45 INR 1.0 (0.9-1.1) 09/18/20 10:45 APTT 23.9 Seconds (21.0-31.0) 09/18/20 10:45 Blood Type O Positive 09/18/20 10:49 Antibody Screen NEGATIVE 09/18/20 10:49 Electrocardiogram Date: 09/18/20 Sinus tachycardia, rate 114 bpm Incomplete right bundle branch block Left anterior fascicular block Nonspecific ST abnormality Abnormal ECG When compared with ECG of 30-JAN-2020 01:05, Incomplete right bundle branch block is now Present Confirmed by Caio Ibarra ([id number]) on 09/18/2020 12:28:35 PM Chest X-Ray Date: 09/18/20 IMPRESSION: 1. Equivocal new 27 mm right upper lung zone airspace opacity. If a real finding, this is likely infectious/inflammatory 2. Stable right hilar enlargement 3. Stable 5 cm left infrahilar opacity 4. Suspected trace right pleural effusion
--- NOTE | 2020-09-19 11:56 | History & Physical Report ---
Date of Service September 19, 2020 Assessment & Plan Admission and Anticipated Discharge Date Admission Date: September 18, 2020 History of Present Illness Primary Care Provider: Chapito Milner, DO Dark stool, worsening anemia, NSAID use. CV: RRR Resp: CTA Abd: soft A/P: EGD for GIB Allergies Allergy/AdvReac Type Severity Reaction Status Date / Time NSAIDS (Non-Steroidal AdvReac Mild upset Verified 09/18/20 13:34 Anti-Inflamma stomach Home Medications Medication Instructions Recorded Confirmed Type potassium chloride 0 meq FEEDING TUBE DAILY 05/11/18 09/18/20 History budesonide-formoterol HFA 160 2 puffs INH BID 02/15/19 09/18/20 History mcg-4.5 mcg/actuation aerosol inhaler loperamide 1 mg/7.5 mL oral liquid 2 mg FEEDING TUBE Q4H PRN 02/15/19 09/18/20 History wheat dextrin 3 gram/3.8 gram oral 1.5 gm PO DAILY PRN gm 02/15/19 09/18/20 History powder levothyroxine 137 mcg capsule 137 mcg FEEDING TUBE DAILY 05/19/19 09/18/20 History gabapentin 300 mg capsule 0 mg FEEDING TUBE BID cap 07/10/19 09/18/20 History ipratropium 0.5 mg-albuterol 3 mg 3 ml INHALATION TID ml 01/15/20 09/18/20 History (2.5 mg base)/3 mL nebulization soln ipratropium-albuterol 1 puff INHALATION QID PRN #1 01/31/20 09/18/20 Rx inhaler fentanyl 25 mcg/hr transdermal 1 patch TRANSDERMAL Q72H 03/01/20 09/18/20 History patch nutritional supplements 0.08 2 ea FEEDING TUBE BID 03/27/20 09/18/20 History gram-2 kcal/mL liquid for tube feed oxycodone 5 mg capsule 10 mg FEEDING TUBE Q6H cap 03/27/20 09/18/20 History azithromycin 250 mg tablet 500 mg FEEDING TUBE UD #24 tab 04/16/20 09/18/20 Rx lansoprazole 30 mg capsule,delayed 30 mg FEEDING TUBE BID #60 cap 04/17/20 09/18/20 Rx release Oxygen Home #1 ea 05/22/20 09/17/20 Rx loratadine 10 mg tablet 10 mg FEEDING TUBE DAILY PRN 05/28/20 09/18/20 History prednisone 10 mg tablet 10 mg FEEDING TUBE DIRECTED tab 05/28/20 09/18/20 History buspirone 10 mg tablet 10 mg PO BID #60 tab 05/29/20 09/18/20 Rx prednisone 5 mg tablet 5 mg PO DAILY #90 tab 06/12/20 09/18/20 Rx tiotropium bromide 2.5 2 inh INHALATION QAM #4 g 06/12/20 09/18/20 Rx mcg/actuation mist for inhalation fentanyl 12 mcg/hr transdermal 1 patch TRANSDERMAL Q72H #1 ea 09/17/20 09/18/20 Rx patch losartan 25 mg FEEDING TUBE DAILY 09/18/20 09/18/20 History mirtazapine 45 mg FEEDING TUBE HS 09/18/20 09/18/20 History Past Med/Surg History Medical History Anxiety Cancer of supraglottis "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 Radiation completed 02/28/2010 received 7200 cGy Finding of asymmetry of larynx on the right. 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 Radiation completed 02/28/2010 received 7200 cGy Finding of asymmetry of larynx on the right. Plan for laryngoscopy and biopsy 01/27/2017 " Cervical stenosis of spinal canal Chronic low back pain [facility]" COPD (chronic obstructive pulmonary disease) "is on home oxygen" Hypothyroidism Insomnia Lung cancer (10/04/17) Mass of lower lobe of left lung Oxygen dependent Presence of externally removable percutaneous endoscopic gastrostomy (PEG) tube (~2019) Radiation fibrosis of lung Surgical History H/O cervical spine surgery H/O neck surgery right side Percutaneous endoscopic gastrostomy status S/P lobectomy of lung Family History Other No pertinent family history Denies family history of Ovarian cancer Prostate cancer Breast cancer Lung cancer Colorectal cancer Social History Smoking Status: Never smoker Tobacco Type: Cigarettes Second Hand Exposure: No; Hx Alcohol Use: No Hx Substance Use: No Preferred Language: Yakut Communication Ability: Effective Visual Impairment: No Limitations Hearing Ability: Normal Buffer Inflated Pad Required: No Beliefs That Will Affect Care: None marital status: Single Current Living Situation: Spouse current occupational status: retired Other Information That Helps Us Care for You: No Feels Safe at Home: Yes Safety Concerns: Feels Safe At This Time caffeine: No Dental Care, Regularly: Yes Physical Activity Frequency: Does not Exercise Seatbelt Use: always Sunscreen Use: Yes Assistive Devices: Oxygen - Continuous Results & Data ([facility]) Vital Signs (Past 12 Hours) Vital Signs Temp Pulse Pulse Resp BP Pulse Ox 09/19/20 11:19 109 H 09/19/20 07:19 81 20 95 09/19/20 02:47 98 H 09/19/20 02:43 36.7 C 102 H 19 134/80 96 Code Status & VTE Plan VTE Prophylaxis Plan VTE Prophylaxis will be ordered: Yes
[2020-09-19] MEDS ORDERED: POTASSIUM CHLORIDE 20MEQ/15ML 473ML PO SCH (12:00)
[2020-09-19] MEDS ORDERED: POTASSIUM CHLORIDE 20MEQ/15ML 473ML PEG SCH (12:00)
[2020-09-19] MEDS ORDERED: LIDOCAINE HCL 2% 2 ML VIAL/AMP(20MG/ML) INFIL ONE (12:00)
[2020-09-19] MEDS ORDERED: PROPOFOL IV EMULSION 10 MG/ML 20 ML VIAL IV ONE ×2 (12:00→12:38)
--- NOTE | 2020-09-19 12:42 | GI REPORT ---
Patient Name: Luis Boss Procedure Date: 09/19/2020 12:03 PM Date of : 1950 Admit Type: Inpatient Age: 70 Gender: Male Attending MD: Gregor Mariano MD Procedure: Upper GI endoscopy Providers: Gregor Mariano MD Referring MD: Mary Wilkes Indications: Acute post hemorrhagic anemia Medicines: See the Anesthesia note for documentation of the administered medications Complications: No immediate complications. Estimated Blood Loss: Estimated blood loss: none. Procedure: Pre-Anesthesia Assessment: - ASA Grade Assessment: IV - A patient with severe systemic disease that is a constant threat to life. After obtaining informed consent, the endoscope was passed under direct vision. Throughout the procedure, the patient's blood pressure, pulse, and oxygen saturations were monitored continuously. The Endoscope was introduced through the mouth, and advanced to the second part of duodenum. The upper GI endoscopy was accomplished without difficulty. The patient tolerated the procedure well. Findings: There was a stricture at the UES. An ultra-thin scope was used to intubate the esophagus. The esophagus was normal. There was mild patchy erythema in the fundus and upper body. Otherwise, the stomach was normal. The PEG bumper was seen in the stomach; there was no mucosal ulceration near the PEG tube. There was a submucosal nodule in the duodenal bulb, likely a pancreatic rest. The remainder of the duodenum was normal. Impression: Tight stricture at UES precluding passage of the upper endoscope. No source of UGIB was seen. Recommendation: - Discharge patient to floor. See [facility] for recommendations. Wilmer Catalan MD 09/19/2020 12:41:36 PM This report has been signed electronically. Note Initiated On: 09/19/2020 12:03 PM Number of Addenda: 0 I attest to the content of the Intraoperative Record and orders documented therein, exceptions below {[id number]}
--- NOTE | 2020-09-19 12:58 | Anesthesiology Progress Note ---
Date of Service September 19, 2020 Anesthesia Post Procedure Vital Signs Vital Signs: Temp Pulse Pulse Pulse Resp BP BP 09/19/20 12:51 108 H 18 144/85 H 09/19/20 12:46 108 H 18 120/73 09/19/20 12:35 108 H 18 120/73 09/19/20 11:59 98.6 F 114 H 20 165/102 H 09/19/20 11:19 109 H 09/19/20 07:19 81 20 09/19/20 02:47 98 H 09/19/20 02:43 98.1 F 102 H 19 134/80 09/18/20 23:04 97.7 F 100 H 19 167/77 H 09/18/20 21:10 98.2 F 96 H 16 156/74 H 09/18/20 20:10 98.2 F 90 18 177/93 H 09/18/20 19:40 98.1 F 87 19 157/80 H 09/18/20 19:25 97.9 F 87 20 149/77 H 09/18/20 19:19 88 20 09/18/20 19:05 98.1 F 90 18 166/85 H 09/18/20 19:04 98.6 F 99 H 22 171/82 H 09/18/20 18:34 98.6 F 85 22 09/18/20 16:09 90 18 128/77 09/18/20 15:00 92 H 15 09/18/20 14:37 98 H 30 H 09/18/20 14:00 90 16 09/18/20 13:30 93 H 21 09/18/20 13:00 96 H 18 Pulse Ox 09/19/20 12:51 100 09/19/20 12:46 100 09/19/20 12:35 100 09/19/20 11:59 100 09/19/20 11:19 09/19/20 07:19 95 09/19/20 02:47 09/19/20 02:43 96 09/18/20 23:04 94 09/18/20 21:10 98 09/18/20 20:10 95 09/18/20 19:40 99 09/18/20 19:25 98 09/18/20 19:19 97 09/18/20 19:05 94 09/18/20 19:04 97 09/18/20 18:34 94 09/18/20 16:09 98 09/18/20 15:00 09/18/20 14:37 09/18/20 14:00 09/18/20 13:30 09/18/20 13:00 Pain Intensity Bilateral Back: Pain Intensity: 4 Transfer of Care Handoff Completed per policy Notes Mental Status: alert / awake / arousable and participated in evaluation Patient Amnestic to Procedure: Yes Nausea / Vomiting: adequately controlled Pain: adequately controlled Airway Patency, RR, SpO2: stable & adequate BP & HR: stable & adequate Hydration State: stable & adequate Anesthetic Complications: no major complications apparent and Pt Satisfied with anesthetic care
[2020-09-19] MEDS: LOSARTAN POTASSIUM 25 MG TAB GT SCH (14:27)
[2020-09-19] MEDS ORDERED: IRON SUCROSE 100 MG in 0.9 % SODIUM CHLORIDE 100 ML IV ONE (14:30)
--- NOTE | 2020-09-19 15:09 | Discharge Summary ---
Date of Service September 19, 2020 Admission HPI Per Admitting Provider 69 yo M with PMH lung and supraglottic cancer s/p lobectomy, chemotherapy and radiation, 3L O2 dependent COPD admitted for shortness of breath. Patient typically gets all of his nutrition via his PEG tube he fell can take sips of water orally however he is at risk for reflux and aspiration. Patient takes daily Pepto-Bismol to help with his stool consistency as since his radiation and chemo treatment he has had frequent issues with stooling subsequently developed a protocol of daily Pepto-Bismol twice daily fiber and Imodium Patient presents to our emergency department at the request of his primary care provider who jamie outpatient labs on 09/17 with a hemoglobin of 7.5. And microcytic indices patient notes he does his nutrition from a prepackaged Nutren 2.0 and does take a liquid multivitamin his stools been black for years since he takes daily Pepto-Bismol. He notes no other change in his stool habits. He has no dyspepsia he frequently aspirates his PEG tube and he has not noticed any coffee-ground or dark material in the PEG tube aspirate Patient typically takes all his medications twice a day usually at midnight and noon he has recently changed his Synthroid dosing to twice daily as he feels when he takes it once a day it causes some post administration flushing and sweating Admission Exam Per Admitting Provider The patient appeared well nourished and normally developed. Vital signs as documented. Head exam is normocephalic atraumatic no scleral icterus Neck is without JVD, thyromegaly, or carotid bruits. Lungs are with overall poor air movement and expiratory wheezes on chronic oxygen Cardiac exam, Rhythm is regular.. No murmurs, rubs or gallops. Abdominal exam reveals normal bowel sounds, soft non tender, no masses clean PEG tube in central abdomen Extremities are nonedematous and both pedal pulses are present Neurologic exam is alert and oriented, no focal loss of strength or sensation Skin is with lower extremity changes of chronic venous stasis are noted Psychologically is without concerns for anxiety or depression Principal Diagnosis Iron deficiency anemia Discharge Exam General: alert and oriented, in no acute distress, anxious Neck: no lymphadenopathy, no JVD Cardio: RRR, -m/g/r Lungs: normal effort, clear to auscultation bilaterally, decreased sounds at left base Abdominal: BS+ x4, NT/ND, soft Extremities: No clubbin, no edema Discharge Data Allergies Allergy/AdvReac Type Severity Reaction Status Date / Time NSAIDS (Non-Steroidal AdvReac Mild upset Verified 09/18/20 13:34 Anti-Inflamma stomach Consultations 09/18/20 13:17 ED Decision to Admit Stat 09/18/20 17:51 Consult Gastroenterology Routine Procedures Performed Operation Date: 09/19/20 17:30 Actual Procedures p Esophagogastroduodenoscopy - Gregor Mariano MD Ordered Studies 09/18/20 10:37 CT angio chest PE protocol Stat Hospital Course (1) Anemia: 70 year old male who was admitted upon referral from his PCP due to concern of anemia on routine labs. Iron deficiency anemia was supported by his lab work showing a microcytic anemia with a low iron and elevated TIBC. However, GI bleed could not be immediately ruled out in the setting of chronically dark stools due to regular Pepto Bismol use. As such, gastroenterology was consulted, who recommended evaluation with EGD--no signs of bleeding were appreciated during the procedure. As such, the anemia was thought to be due to iron deficiency. The patient received 100mg of IV iron sucrose and was instructed to continue iron supplementation at home. All of his home medications were continued for his other chronic issues--no changes were made during admission. For patient concern of shortness of breath in setting of chronic COPD and chronic respiratory failure on 3L O2 at home -- CTA with no PE, infiltrate, pulmonary edema. Symptoms possibly from increased phlegm. Pulse ox maintained on his home 3L O2. Advised to continue his home med regimen and follow up with pulmonology on discharge. Pulmonary Nodule - A Chest CTA done during the admission was significant for a 9 mm nodule in the right lower lobe and an 11 mm nodule in the left lower lobe, which are new from previous and concerning for progressive metastatic disease. The patient was informed of this and said that he was aware of these nodules and was set to follow up with pulmonology in the near future. It was recommended that the patient follow up with his PCP and amusement or recreation card checker for discussion of his admission. (2) COPD (chronic obstructive pulmonary disease): (3) Radiation fibrosis of lung: (4) Lung cancer: (5) S/P lobectomy of lung: (6) Hypothyroidism: Total Time Total Time Spent Total Time Spent (In Minutes): see attending attestation Discharge Plan Discharge Items Patient Disposition: Home - Self-Care Reason For Visit: Symptomatic Anemia Discharge Diagnosis: Iron deficiency anemia Activity: Per Instructions section Non-emergency contact: Primary Care Provider, Oncologist and Gas Flow Regulator Call non-emergency contact if: you have any medication questions and your symptoms worsen Follow-up/Referrals: Chapito Milner, [Primary Care Provider] - Diet: Regular Addtl Attending Provider Instructions: You were admitted to [facility] after you were found to have low hemoglobin by your primary care provider. While in the hospital you received 1 unit of blood to replete your low hemoglobin. Additionally, you were evaluated by Gastroenterology for concerns of gastrointestinal bleeding. They performed an upper GI scope, which found no signs of bleeding. Your lab work did show low iron levels so you received IV iron repletion and were then deemed stable for discharge. We recommend that you continue to take iron supplementation at home. You may purchase this over the counter at your preferred pharmacy. Please continue to take all your other medications as previously prescribed. We recommend that you follow-up with your usual doctors, including your [facility], amusement or recreation card checker, and oncologist to discuss your hospitalization. If you develop worsening or new severe symptoms, please seek emergency care. Pending Studies at Discharge: No Stand-Alone Forms: My [facility] [employer], Smoking Cessation Medications and DC Order Prescriptions: Continued Symbicort 160-4.5 mcg/actuation HFA aerosol inhaler 2 puffs INH BID RF: 0 Benefiber Sugar Free (dextrin) 3 gram/3.8 gram powder 1.5 gm PO DAILY PRN (Reason: constipation) RF: 0 loperamide [Imodium A-D] 1 mg/7.5 mL liquid 2 mg feeding tube Q4H PRN (Reason: Diarrhea) RF: 0 azithromycin [Zithromax] 250 mg tablet 500 mg feeding tube UD Qty: 24 RF: 5 lansoprazole 30 mg capsule,delayed release(DR/EC) 30 mg feeding tube BID Qty: 60 RF: 5 (DME) Oxygen Home Liters Per Minute See Dose Instructions .ROUTE .MEDSUPPLY Qty: 1 RF: 0 buspirone 10 mg tablet 10 mg PO BID Qty: 60 RF: 2 levothyroxine 137 mcg capsule 137 mcg feeding tube DAILY RF: 0 oxycodone 5 mg capsule 10 mg feeding tube Q6H RF: 0 prednisone 5 mg tablet 5 mg PO DAILY Qty: 90 RF: 0 Spiriva Respimat 2.5 mcg/actuation mist 2 inh inhalation QAM Qty: 4 RF: 2 fentanyl 12 mcg/hr patch 72 hour 1 patch transdermal Q72H Qty: 1 RF: 0 prednisone 10 mg tablet 10 mg feeding tube DIRECTED RF: 0 potassium chloride 40 mEq/15 mL Liquid 0 meq Feeding Tube DAILY RF: 0 gabapentin 300 mg capsule 0 mg Feeding Tube BID RF: 0 ipratropium-albuterol 0.5 mg-3 mg(2.5 mg base)/3 mL solution for nebulization 3 ml INHALATION TID RF: 0 fentanyl 25 mcg/hr patch 72 hour 1 patch TRANSDERMAL Q72H RF: 0 Nutren 2.0 0.08 gram-2 kcal/mL liquid 2 ea Feeding Tube BID RF: 0 loratadine 10 mg tablet 10 mg Feeding Tube DAILY PRN (Reason: Allergic Reaction) RF: 0 ipratropium-albuterol 20-100 mcg/actuation Mist 1 puff INHALATION QID PRN (Reason: cough or shortness of breath) Qty: 1 RF: 0 losartan 25 mg tablet 25 mg feeding tube DAILY RF: 0 mirtazapine 45 mg tablet 45 mg feeding tube HS RF: 0 Discharge Orders: Discharge Order (Routine); Ordered 09/19/20 Ordered By: [facility] Data Admit Date/Time: 09/18/20 14:18 Attending Provider: Mary Aldridge Admit Provider: Sterling Tan Primary Care Provider: Chapito Milner Other Providers: Sterling Tan ; Laura Burr ; [facility] Other Interventions: Discharge Summary Assessment (RN) Last Done: 09/19/20 15:59 Supervising Physician Co-Signing Physician Notes Resident Physician Supervision Note: I independently interviewed and examined the patient and verified the abebe history and physical, reviewed labs and image studies, discussed the case with the resident Dr. Galeano and agree with the findings and care plan. Resident Activity Tracking Resident Involvement: Resident Care Provided Care Provided: Adult Hospital Medicine
[2020-09-19 15:20] VITALS: TEMP 98.6; O2SAT 91
[2020-09-19 16:03] VITALS: BP 154/89
[2020-09-19 16:48] VITALS: PULSE 119
[2020-09-19] MEDS ORDERED: MIRTAZAPINE SOLTAB 15 MG PO SCH ×2 (20:00)
[2020-09-20] MEDS ORDERED: fentaNYL 25 MCG/HR TDSY TD SCH (09:00)
[2020-09-20] MEDS ORDERED: fentaNYL 12 MCG/HR TDSY TD SCH (09:00)
[2020-09-20] MEDS ORDERED: AZITHROMYCIN SUSP 200 MG/5 ML 22.5 ML PO SCH (12:00)
== END 2020-09-19 17:45 | disposition home or self-care (01) | DRG 812 ==
LOC: ED 10:08 → 2W 14:18 → SUATTDRO 14:18 → 2W 16:17

== ENCOUNTER 2021-03-28 13:28 | Inpatient (IN) ==
--- NOTE | 2021-03-28 15:29 | Emergency Department Note ---
Impression & Plan Feeding tube dysfunction ED Provider Note INFORMANT: Patient ED PROVIDER(S): Tan Montes De Oca MD CHIEF COMPLAINT: Feeding tube replacement PLAN: Disposition: Admitted Condition: Good Outpatient prescription management: none Referral: None MEDICAL DECISION MAKING: Patient presented to the emergency department by direction of the gastroclinic from [facility]. He has a feeding tube that has broken several times and it is too short for him to adequately use. He was directed to the emergency department to see Dr. Aparicio. The patient arrived in charge nurse did page GI immediately. I did evaluate the patient. His feeding tube is very short. He is doing well. He was getting by with the help of his significant other but unfortunately she has been admitted to the hospital because of a strokelike event. He is unable to adequately use the very short feeding tube. I was able to eventually discuss this with VEE Dasilva. I did note the patient's situation. She is discussing case with Dr. Aparicio. I did order a Covid test upon seeing the patient. Basic labs revealed a mild anemia. The patient unfortunately cannot have the procedure done today. Patient does not have any help at home. He is unable to do his PEG tube feedings. Because of this the patient will need to stay in the hospital for help in management until his scope can be performed on Wednesday. I did discuss this with the hospitalist service, Dr. Masters and the patient was admitted for further management. Patient was anxious and did request something for this. He was given a dose of Ativan. Triage Nursing notes reviewed and agree them. Vital Signs: reviewed and remarkable for no significant abnormalities Differential diagnosis: Feeding tube dysfunction, infection, dehydration, as well as others. Diagnostics interpreted by me: ECG: none Cardiac Monitoring: none Imaging studies: Deferred HPI: The patient is a 70 year old male who presents to the Emergency Room with complaints of feeding tube malfunction. This started this week and is described as progressive breaking of the feeding tube and shortening to the point where the patient cannot adequately use it. He was able to clamp the tube previously and administer his feeds. After the tube had broken several times he noted it is so short that he cannot get the clamp on. He was being helped by family however his significant other was just admitted with a strokelike event and he is unable to do his feedings by himself. He did call gastro at [facility] where the tube was previously taken care of by Dr. Daniel Orozco. He was directed to the ER to see Dr. Aparicio for help today he did have an appointment this week but notes that he missed it secondary to his significant other being admitted and he was under a lot of stress. He had some nausea and did not feel he could go through with the appointment. Currently the patient feels at baseline and is denying any significant symptoms. Pt denies LOC, headache, fevers, chills, diaphoresis, visual changes, neck pain, chest pain, breathing difficulties, nausea, vomiting, abdominal pain, back pain, melena, hematochezia, urinary symptoms, numbness, weakness, lymphadenopathy, rash, or other complaints. ROS: See above HPI for pertinent positives & negatives. A total of 8 systems reviewed and were otherwise negative. PAST MEDICAL HISTORY:See Below , COPD PAST SURGICAL HISTORY:See Below, PEG tube FAMILY HISTORY:See Below SOCIAL HISTORY:See Below, retired HOME MEDICATIONS:See Below ALLERGIES:See Below VITALS:See Below PHYSICAL EXAMINATION: GENERAL: Awake, alert, well-appearing, in no distress HENT: Normocephalic, atraumatic. Oropharynx unremarkable. EYES: Normal conjunctiva. Sclera non-icteric. NECK: Inspection normal. Non-tender. Supple. No nuchal rigidity. FROM. No masses. RESPIRATORY: Clear to auscultation. No wheezes. No rales. Normal respiratory effort. CARDIAC: Normal rate. Normal rhythm. No murmurs. No rubs. Extremities warm and well perfused. Pulses equal. No JVD. GI: Soft, non-distended. No tenderness to palpation. No rebound or guarding. No masses. Feeding tube present in the epigastrium. Very shortened. RECTAL: Deferred. MUSCULOSKELETAL: Atraumatic. No joint edema. LOWER EXTREMITIES: Calves are equal size bilaterally and non-tender. 1+ edema. No discoloration. NEURO: Normal sensorium. No sensory or motor deficits noted. SKIN: No rash or jaundice noted. 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 Radiation completed 02/28/2010 received 7200 cGy Finding of asymmetry of larynx on the right. 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 Radiation completed 02/28/2010 received 7200 cGy Finding of asymmetry of larynx on the right. Plan for laryngoscopy and biopsy 01/27/2017 " Cervical stenosis of spinal canal Chronic hypoxemic respiratory failure Chronic low back pain [facility]" COPD (chronic obstructive pulmonary disease) "is on home oxygen" GIB (gastrointestinal bleeding) Hypothyroidism Insomnia Lung cancer (10/04/17) Lung nodules Mass of lower lobe of left lung Oxygen dependent Presence of externally removable percutaneous endoscopic gastrostomy (PEG) tube (~2018) Radiation fibrosis of lung Surgical History H/O cervical spine surgery H/O neck surgery right side Percutaneous endoscopic gastrostomy status S/P lobectomy of lung Family History Other No pertinent family history Denies family history of Ovarian cancer Prostate cancer Breast cancer Lung cancer Colorectal cancer Social History Smoking Status: Never smoker Tobacco Type: Cigarettes Second Hand Exposure: No; Hx Alcohol Use: No Hx Substance Use: No Preferred Language: Citizen Of [place] Communication Ability: Effective Visual Impairment: No Limitations Hearing Ability: Normal Attendant Coin Operated Laundry Required: No Beliefs That Will Affect Care: None marital status: Single Current Living Situation: Spouse current occupational status: retired Feels Safe at Home: Yes caffeine: No Dental Care, Regularly: Yes Physical Activity Frequency: Does not Exercise Seatbelt Use: always Sunscreen Use: Yes Assistive Devices: Oxygen - Continuous Allergies Allergies Allergy/AdvReac Type Severity Reaction Status Date / Time NSAIDS (Non-Steroidal AdvReac Mild upset Verified 02/06/21 13:44 Anti-Inflamma stomach Home Meds Home Medications Medication Instructions Recorded Confirmed loperamide 1 mg/7.5 mL oral liquid 2 mg FEEDING TUBE Q4H PRN 02/15/19 03/28/21 (Imodium A-D) wheat dextrin 3 gram/3.8 gram oral 1.5 gm PO DAILY PRN gm 02/15/19 03/28/21 powder (Benefiber Sugar Free (dextrin)) levothyroxine 137 mcg capsule 137 mcg FEEDING TUBE DAILY 05/19/19 03/28/21 ipratropium 0.5 mg-albuterol 3 mg 3 ml INHALATION Q4H PRN ml 01/15/20 03/28/21 (2.5 mg base)/3 mL nebulization soln fentanyl 25 mcg/hr transdermal 1 patch TRANSDERMAL Q72H 03/01/20 03/28/21 patch nutritional supplements 0.08 2 ea FEEDING TUBE BID 03/27/20 03/28/21 gram-2 kcal/mL liquid for tube feed (Nutren 2.0) loratadine 10 mg tablet 10 mg FEEDING TUBE DAILY PRN 05/28/20 03/28/21 azithromycin 250 mg tablet 500 mg FEEDING TUBE MOWEFR tab 11/21/20 03/28/21 (Zithromax) gabapentin 300 mg capsule 300 mg FEEDING TUBE TID cap 11/21/20 03/28/21 Oxygen Home ea 02/06/21 guaifenesin 100 mg/5 mL oral 200 mg PO BID PRN ml 02/06/21 03/28/21 liquid (Mucinex Fast-Max Chest Congestion) ferrous sulfate 220 mg (44 mg 220 mg FEEDING TUBE DAILY 03/28/21 03/28/21 iron)/5 mL oral elixir hydromorphone 1 mg/mL oral liquid 3 mg FEEDING TUBE Q4H PRN 03/28/21 03/28/21 hyoscyamine sulfate 0.125 mg tablet 0.125 mg SUBLINGUAL DAILY PRN 03/28/21 03/28/21 morphine concentrate 100 mg/5 mL 5 mg SUBLINGUAL Q2H PRN 03/28/21 03/28/21 (20 mg/mL) oral solution oxycodone 5 mg/5 mL oral solution 10 mg PO .Q4-6H PRN 03/28/21 03/28/21 potassium chloride 10 mEq 10 meq PO DAILY 03/28/21 03/28/21 tablet,extended release prednisone 10 mg tablet 10 mg FEEDING TUBE DAILY 03/28/21 03/28/21 prednisone 5 mg tablet 5 mg FEEDING TUBE DAILY 03/28/21 03/28/21 Previous Rx's Medication Instructions Recorded fentanyl 12 mcg/hr transdermal 1 patch TRANSDERMAL Q72H #1 ea 09/17/20 patch mirtazapine 45 mg tablet 45 mg FEEDING TUBE HS #90 tab 11/28/20 losartan 25 mg tablet 25 mg FEEDING TUBE DAILY #90 tab 01/27/21 buspirone 10 mg tablet 10 mg PO BID #60 tab 02/03/21 Results & Data (ED) Vital Signs Vital Signs - 24 hr 03/28/21 13:32 03/28/21 14:53 03/28/21 16:50 Temperature 36.8 C 36.8 C Temperature Source Oral Oral Pulse Rate 98 H Pulse Rate [Right Finger] 80 87 Pulse Rhythm Regular Pulse Strength Normal Respiratory Rate 18 22 Respiratory Effort / Characteristics Non-Labored Spontaneous Respiratory Depth Normal Respiratory Pattern Regular Blood Pressure 167/74 H Blood Pressure [Right Arm] 168/102 H 158/97 H Blood Pressure Mean 105 Blood Pressure Mean [Right Arm] 124 117 Pulse Oximetry 92 93 95 Oxygen Delivery Method Nasal Cannula Nasal Cannula Nasal Cannula Oxygen Flow Rate 4 4 4 Sepsis Recent Fever Within 48 Hours No Sepsis New/Unexplained Change in Mental Status No Sepsis Action Taken by Nursing No Action Required Laboratory Data Result diagrams: 03/28/21 17:13 03/28/21 17:13 Lab Results 03/28/21 03/28/21 03/28/21 Range/Units 15:08 15:08 17:13 WBC 6.35 (4.8-10.8) K/uL RBC 3.91 L (4.7-6.1) M/uL Hgb 8.5 L (14.0-18.0) g/dL Hct 29.4 L (42-52) % MCV 75.2 L (80-100) fL MCH 21.7 L (25-34) pg MCHC 28.9 L (32-36) g/dL RDW Std Deviation 53.5 H (36.4-46.3) fL RDW Coeff of Stephanie 19.2 H (11.5-14.5) % Plt Count 359 (130-400) K/uL MPV 8.7 (7.4-10.4) fL Immature Gran % (Auto) 0.2 % Neut % (Auto) 78.7 % Lymph % (Auto) 9.6 % [place] % (Auto) 7.9 % Eos % (Auto) 3.1 % Baso % (Auto) 0.5 % Neut # (Auto) 5.00 (1.4-6.5) K/uL Lymph # (Auto) 0.61 L (1.2-3.4) K/uL [place] # (Auto) 0.50 (0.11-0.59) K/uL Eos # (Auto) 0.20 (0-0.5) K/uL Baso # (Auto) 0.03 (0-0.2) K/uL Immature Gran # (Auto) 0.01 (0.00-0.02) K/uL Sodium (136-145) mmol/L Potassium (3.5-5.1) mmol/L Chloride (98-107) mmol/L Carbon Dioxide (21-32) mmol/L Anion Gap (3-11) BUN (7-18) mg/dl Creatinine (0.6-1.4) mg/dl Est Cr Clr Drug Dosing ml/min Est GFR ( Amer) ml/min Est GFR (Non-Af Amer) ml/min BUN/Creatinine Ratio (10-20) Glucose (70-99) mg/dl Calcium (8.5-10.1) mg/dl Total Bilirubin (0.2-1) mg/dl AST (15-37) U/L ALT (12-78) U/L Alkaline Phosphatase (45-117) U/L Total Protein (6.4-8.2) gm/dl Albumin (3.4-5.0) gm/dl Globulin (2.5-4.0) gm/dl Albumin/Globulin Ratio (0.9-2) COVID-19 Eval Order Covid19 at [facility] SARS-CoV-2 (PCR) NEGATIVE (Negative) 03/28/21 Range/Units 17:13 WBC (4.8-10.8) K/uL RBC (4.7-6.1) M/uL Hgb (14.0-18.0) g/dL Hct (42-52) % MCV (80-100) fL MCH (25-34) pg MCHC (32-36) g/dL RDW Std Deviation (36.4-46.3) fL RDW Coeff of Stephanie (11.5-14.5) % Plt Count (130-400) K/uL MPV (7.4-10.4) fL Immature Gran % (Auto) % Neut % (Auto) % Lymph % (Auto) % [place] % (Auto) % Eos % (Auto) % Baso % (Auto) % Neut # (Auto) (1.4-6.5) K/uL Lymph # (Auto) (1.2-3.4) K/uL [place] # (Auto) (0.11-0.59) K/uL Eos # (Auto) (0-0.5) K/uL Baso # (Auto) (0-0.2) K/uL Immature Gran # (Auto) (0.00-0.02) K/uL Sodium 135 L (136-145) mmol/L Potassium 3.7 (3.5-5.1) mmol/L Chloride 99 (98-107) mmol/L Carbon Dioxide 30 (21-32) mmol/L Anion Gap 5.0 (3-11) BUN 13 (7-18) mg/dl Creatinine 0.51 L (0.6-1.4) mg/dl Est Cr Clr Drug Dosing 161.6 ml/min Est GFR ( Amer) 128.0 ml/min Est GFR (Non-Af Amer) 110.5 ml/min BUN/Creatinine Ratio 24.7 H (10-20) Glucose 100 H (70-99) mg/dl Calcium 8.6 (8.5-10.1) mg/dl Total Bilirubin 0.4 (0.2-1) mg/dl AST 17 (15-37) U/L ALT 33 (12-78) U/L Alkaline Phosphatase 77 (45-117) U/L Total Protein 7.4 (6.4-8.2) gm/dl Albumin 3.3 L (3.4-5.0) gm/dl Globulin 4.1 H (2.5-4.0) gm/dl Albumin/Globulin Ratio 0.8 L (0.9-2) COVID-19 Eval Order SARS-CoV-2 (PCR) (Negative) Administered Medications Buspirone HCl (Buspirone 5 Mg Tab) 10 mg GT BID JOCELYN Stop: 04/27/21 20:59 Last Admin: 03/28/21 21:44 Dose: 10 mg Documented by: [id number] Enoxaparin Sodium (Enoxaparin Inj 40 Mg/0.4 Ml Syr) 40 mg SQ Q24H JOCELYN Stop: 04/27/21 20:13 Last Admin: 03/28/21 21:45 Dose: 40 mg Documented by: [id number] Gabapentin (Gabapentin 250 Mg/5 Ml 470 Ml Btl) 300 mg GT TID JOCELYN Stop: 04/27/21 20:59 Last Admin: 03/28/21 21:44 Dose: 300 mg Documented by: [id number] Mirtazapine (Mirtazapine Soltab 15 Mg) 45 mg PO HS JOCELYN Stop: 04/27/21 20:59 Last Admin: 03/28/21 21:44 Dose: 45 mg Documented by: [id number] Oxycodone HCl (Oxycodone Hcl Soln 5 Mg/5 Ml Udc) 10 mg PO Q4 PRN PRN Reason: pain Stop: 04/11/21 20:13 Last Admin: 03/28/21 20:30 Dose: 10 mg Documented by: [id number] Discontinued Medications Sodium Chloride (Nss 1000ml) 1,000 mls @ 125 mls/hr IV .Q8H STA Stop: 03/29/21 01:08 Last Infusion: 03/28/21 22:24 Dose: 0 mls/hr Documented by: [id number] Infusion: 03/28/21 20:01 Dose: 0 mls/hr Documented by: [id number] Admin: 03/28/21 17:37 Dose: 125 mls/hr Documented by: [id number] Lorazepam (Lorazepam 1 Mg Tab) 1 mg SL NOW STA Stop: 03/28/21 16:42 Last Admin: 03/28/21 16:44 Dose: 1 mg Documented by: [id number] Oxycodone HCl (Oxycodone Hcl Soln 5 Mg/5 Ml Udc) 10 mg PO NOW ONE Stop: 03/28/21 18:46 Last Admin: 03/28/21 20:00 Dose: Not Given Documented by: [id number] Discharge Plan Visit Data Chief Complaint: Feeding/PEG Tube Replacement Stated Complaint: HAS BROKEN PEG TUBE THAT NEEDS FIXED ED Provider: Tan Montes De Oca Discharge Problem: Feeding tube dysfunction Patient Disposition: Admitted As Inpatient Discharge Instructions Interventions: ED Discharge Assessment Last Done: 03/28/21 19:54
--- NOTE | 2021-03-28 15:36 | Communication Note ---
Date of Service: March 28, 2021 Patient seen in the ED. He was sent here by our office for PEG tube replacement. He has a short PEG tube which is difficult for him to use. He has an esophageal stricture and has solids dysphagia. Needs endoscopic replacement - as had a migrated bumper previously - some scarring around the PEG tube insertion site. Will plan for EGD with replacement on Wednesday. Offered admission over the - patient declines admission and asks to return on Wednesday for procedure which is very reasonable as he can swallow liquids. Our office is reaching out to his son to arrange. We were asked by the emergency room to see the patient this afternoon. He has been having problems with his feeding tube for several weeks and apparently called our office this morning. He has been cutting the PEG tube off on a regular basis and appears to not be flushing it at home. The feeding tube has been in place for several years and was changed last about 1.5 years ago. The patient has had several complications noted with feeding tube changes therefore endoscopic changes have been recommended by his normal GI provider. The patient is able to take liquids. We did offer over the weekend admission with plan for upper endoscopy Wednesday however the patient declined. We are working to make arrangements for feeding tube change early next week.
--- NOTE | 2021-03-28 16:09 | Gastrointestinal Consultation ---
Date of Consultation March 28, 2021 Assessment & Plan (1) PEG tube malfunction: To be fully functional, the PEG should be changed, though this is not an emergent situation. The patient is able to drink liquids. Offered hospitalization until it could be arranged on Wednesday morning. He did not wish to stay. However, the ED physician contacted us to let us know that the pt now prefers hospitalization while awaiting PEG tube replacement. If nursing is able to use the PEG tube, there is no contraindication against use this weekend. Plan for EGD for PEG tube change by Dr. Mariano on Wednesday. Please keep NPO after midnight Wednesday. Supervising Physician Co-Signing Physician Notes I saw and evaluated the patient in the emergency room. We had discussed performing an outpatient procedure for him early next week however the patient subsequently developed emotional distress. He is able to take liquid but uncertain if he is able to meet his caloric demand. Given this admission would be very reasonable for IV hydration over the weekend. We can certainly plan to do his feeding tube change on Wednesday with Dr. Mariano. The patient has a fairly complicated past medical history which includes an esophageal stricture and is required endoscopic revision in the past as opposed to percutaneous revisions. Given this replacement was not attempted in the emergency room this afternoon and will be deferred to early next week in a more controlled setting. Physical examination No obvious distress Feeding tube has been cut multiple times is very short, Impression: Patient in need of a feeding tube change. We are planning to make this change early next week endoscopically. Please call with any questions or concerns over the weekend. History of Present Illness Reason for Consultation: Feeding Tube Problems Requesting Physician: Dr. Falguni MD Attending Physician: Dr. Falguni MD History of Present Illness Mr. Luis Boss is a 70 yr old male pt of Dr. 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 He had cut the PEG tube shorter several times and now it is too short to be able to use easily. He also has a friend who helps him with the feedings but she is hospitalized and he is unable to manage the feedings by himself. He denies any abdominal pain or problems with the PEG tube site (no drainage/bleeding or signs of infection at the insertion site). He has a hx of it having migrated to the duodenal bulb previously, and since then has had the tube changed endoscopically, most recently by Dr. Aguila in January 2020 with a #20 Fr Stuart JMEA Externally Removable PEG tube. He tells us that he is able to swallow liquids, small volume, but is not able to swallow any solids. He was also talking to us about a recent decision to go onto hospice and that he is unsure if this was the correct decision. He was a bit tearful. Allergies Allergy/AdvReac Type Severity Reaction Status Date / Time NSAIDS (Non-Steroidal AdvReac Mild upset Verified 02/06/21 13:44 Anti-Inflamma stomach Home Medications Medication Instructions Recorded Confirmed Type loperamide 1 mg/7.5 mL oral liquid 2 mg FEEDING TUBE Q4H PRN 02/15/19 03/28/21 History (Imodium A-D) wheat dextrin 3 gram/3.8 gram oral 1.5 gm PO DAILY PRN gm 02/15/19 03/28/21 History powder (Benefiber Sugar Free (dextrin)) levothyroxine 137 mcg capsule 137 mcg FEEDING TUBE DAILY 05/19/19 03/28/21 History ipratropium 0.5 mg-albuterol 3 mg 3 ml INHALATION Q4H PRN ml 01/15/20 03/28/21 History (2.5 mg base)/3 mL nebulization soln fentanyl 25 mcg/hr transdermal 1 patch TRANSDERMAL Q72H 03/01/20 03/28/21 History patch nutritional supplements 0.08 2 ea FEEDING TUBE BID 03/27/20 03/28/21 History gram-2 kcal/mL liquid for tube feed (Nutren 2.0) loratadine 10 mg tablet 10 mg FEEDING TUBE DAILY PRN 05/28/20 03/28/21 History fentanyl 12 mcg/hr transdermal 1 patch TRANSDERMAL Q72H #1 ea 09/17/20 03/28/21 Rx patch azithromycin 250 mg tablet 500 mg FEEDING TUBE MOWEFR tab 11/21/20 03/28/21 History (Zithromax) gabapentin 300 mg capsule 300 mg FEEDING TUBE TID cap 11/21/20 03/28/21 History mirtazapine 45 mg tablet 45 mg FEEDING TUBE HS #90 tab 11/28/20 03/28/21 Rx losartan 25 mg tablet 25 mg FEEDING TUBE DAILY #90 tab 01/27/21 03/28/21 Rx buspirone 10 mg tablet 10 mg PO BID #60 tab 02/03/21 03/28/21 Rx Oxygen Home ea 02/06/21 History guaifenesin 100 mg/5 mL oral 200 mg PO BID PRN ml 02/06/21 03/28/21 History liquid (Mucinex Fast-Max Chest Congestion) ferrous sulfate 220 mg (44 mg 220 mg FEEDING TUBE DAILY 03/28/21 03/28/21 History iron)/5 mL oral elixir hydromorphone 1 mg/mL oral liquid 3 mg FEEDING TUBE Q4H PRN 03/28/21 03/28/21 History hyoscyamine sulfate 0.125 mg tablet 0.125 mg SUBLINGUAL DAILY PRN 03/28/21 03/28/21 History morphine concentrate 100 mg/5 mL 5 mg SUBLINGUAL Q2H PRN 03/28/21 03/28/21 History (20 mg/mL) oral solution oxycodone 5 mg/5 mL oral solution 10 mg PO .Q4-6H PRN 03/28/21 03/28/21 History potassium chloride 10 mEq 10 meq PO DAILY 03/28/21 03/28/21 History tablet,extended release prednisone 10 mg tablet 10 mg FEEDING TUBE DAILY 03/28/21 03/28/21 History prednisone 5 mg tablet 5 mg FEEDING TUBE DAILY 03/28/21 03/28/21 History Patient History Medical History Anxiety Cancer of supraglottis "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 Radiation completed 02/28/2010 received 7200 cGy Finding of asymmetry of larynx on the right. 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 Radiation completed 02/28/2010 received 7200 cGy Finding of asymmetry of larynx on the right. Plan for laryngoscopy and biopsy 01/27/2017 " Cervical stenosis of spinal canal Chronic hypoxemic respiratory failure Chronic low back pain [facility]" COPD (chronic obstructive pulmonary disease) "is on home oxygen" GIB (gastrointestinal bleeding) Hypothyroidism Insomnia Lung cancer (10/04/17) Lung nodules Mass of lower lobe of left lung Oxygen dependent Presence of externally removable percutaneous endoscopic gastrostomy (PEG) tube (~2019) Radiation fibrosis of lung Surgical History H/O cervical spine surgery H/O neck surgery right side Percutaneous endoscopic gastrostomy status S/P lobectomy of lung Family History Other No pertinent family history Denies family history of Ovarian cancer Prostate cancer Breast cancer Lung cancer Colorectal cancer Social History Smoking Status: Never smoker Tobacco Type: Cigarettes Second Hand Exposure: No; Hx Alcohol Use: No Hx Substance Use: No Preferred Language: Setswana Communication Ability: Effective Visual Impairment: No Limitations Hearing Ability: Normal Solution Sales 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: No Beliefs That Will Affect Care: None marital status: Single Current Living Situation: Spouse current occupational status: retired Feels Safe at Home: Yes caffeine: No Dental Care, Regularly: Yes Physical Activity Frequency: Does not Exercise Seatbelt Use: always Sunscreen Use: Yes Assistive Devices: Oxygen - Continuous Review of Systems Review of Systems: ROS: Gen: Denies weakness, fevers, weight loss Eyes: No eye redness, or pain, no recent vision changes Resp: Has COPD, No worsening SOB, no cough Cardio: No palpitations/irregular beats, no chest pain GI: No abdominal pain, no nausea/vomiting : Denies pain on urination Skin: No jaundice, itching or new rashes Physical Exam Constitutional: WD/WN, vitals as above Eyes: PERRL, conjunctivae normal, anicteric sclerae Neck: trachea midline, no thyromegaly Respiratory: normal respiratory effort, lungs clear to auscultation Cardiovascular: RRR, no murmur, no edema Gastrointestinal (Abdomen): normal bowel sounds, soft, nontender, no hepatosplenomegaly PEG tube in place in the epigastrum Musculoskeletal: no cyanosis or clubbing, extremities motor strength 5/5 Skin: no rashes, warm and dry Neurologic: PERRL, EOMI, accommodation nl, no face palsy, no dysarthria Psychiatric: A+Ox3, euthymic affect Results & Data ([facility]) Vital Signs (Past 12 Hours) Vital Signs Temp Pulse Pulse Resp BP BP Pulse Ox 03/28/21 14:53 36.8 C 80 20 168/102 H 93 03/28/21 13:32 36.8 C 98 H 18 167/74 H 92 Laboratory Results COVID (-)
[2021-03-28] MEDS ORDERED: LORazepam 1 MG TAB SL STA (16:41)
[2021-03-28] MEDS ORDERED: SODIUM CHLORIDE 0.9% 1000ML 1,000 ML IV STA (17:09)
[2021-03-28 17:51] LABS: Albumin Level 3.3 gm/dl (3.4-5.0); BUN Creatinine Ratio 24.7 (10-20); Calcium 8.6 mg/dl (8.5-10.1); Creatinine Clr Calc Pharmacy 161.6 ml/min; Est GFR (Non-African American) 110.5 ml/min; Potassium 3.7 mmol/L (3.5-5.1)
[2021-03-28 17:54] LABS: Albumin Globulin Ratio 0.8 (0.9-2); Bilirubin,Total 0.4 mg/dl (0.2-1); Globulin 4.1 gm/dl (2.5-4.0); Total Protein 7.4 gm/dl (6.4-8.2)
--- NOTE | 2021-03-28 18:17 | History & Physical Report ---
Date of Service March 28, 2021 Assessment & Plan (1) PEG tube malfunction: Plan: 70-year-old male presenting with PEG tube malfunction. Is to have PEG replaced endoscopically on Wednesday by GI. - admit to medical Routine PEG tube management GI consultation appreciated. We will plan for PEG tube placement Wednesday morning. Patient is to be made n.p.o. after midnight prior to surgery Continue tube feeds for now. Patient receives 2 cans PEG tube twice daily followed by 60 mL free water flush. He also crushes his medications with his feeds. (2) COPD (chronic obstructive pulmonary disease): Plan: Chronic. Stable. Adequate oxygenation on nasal cannula. - Continue duo nebs and albuterol as needed -Continue azithromycin q. Wednesday -Continue prednisone daily (3) Anxiety: Plan: Chronic. Stable. Continue BuSpar 10 mg twice daily (4) Unspecified essential hypertension: Plan: Chronic. Elevated blood pressure at 161/89 Continue Cozaar 25 mg daily Continue to monitor (5) Hypothyroidism: Plan: Chronic. Stable. Continue Synthroid 137 mcg p.o. daily (6) Chronic pain: Plan: Patient with longstanding history of chronic pain. Is on large amount of opiates Continue oxycodone Continue fentanyl patch Continue gabapentin Plan: FENnormal saline at 80 mL/h x 2 L, electrolytes within normal limits, continue to monitor, tube feeds as above ProphylaxisLovenox 40 mg daily Codefull per discussion with patient Dispoadmit to medical floor History of Present Illness Chief Complaint: PEG tube malfunction Primary Care Provider: Chapito Milner DO Luis Boss is a 70-year-old male history of COPD, anxiety, hypothyroid, lung cancer, PEG tube in place presenting with PEG tube malfunction. Patient states that his PEG tube began malfunctioning approximately 2 weeks ago and became more dysfunctional over the last 2-3 days. Patient's significant other was assisting him with feeds and medications however, unfortunately she was recently admitted to [facility] for stroke. Patient was scheduled to see GI outpatient yesterday but missed the appointment due to to his girlfriend's illness. He comes to the ER today for PEG tube replacement. Patient was evaluated by GI in the ER and will need to have his PEG tube placed endoscopically on Wednesday. Patient with no additional complaints at this time. He denies fever/chills, chest pain, palpitations, abdominal pain, nausea, vomiting, diarrhea, constipation Allergies Allergy/AdvReac Type Severity Reaction Status Date / Time NSAIDS (Non-Steroidal AdvReac Mild upset Verified 02/06/21 13:44 Anti-Inflamma stomach Home Medications Medication Instructions Recorded Confirmed Type loperamide 1 mg/7.5 mL oral liquid 2 mg FEEDING TUBE Q4H PRN 02/15/19 03/28/21 History (Imodium A-D) wheat dextrin 3 gram/3.8 gram oral 1.5 gm PO DAILY PRN gm 02/15/19 03/28/21 History powder (Benefiber Sugar Free (dextrin)) levothyroxine 137 mcg capsule 137 mcg FEEDING TUBE DAILY 05/19/19 03/28/21 History ipratropium 0.5 mg-albuterol 3 mg 3 ml INHALATION Q4H PRN ml 01/15/20 03/28/21 History (2.5 mg base)/3 mL nebulization soln fentanyl 25 mcg/hr transdermal 1 patch TRANSDERMAL Q72H 03/01/20 03/28/21 History patch nutritional supplements 0.08 2 ea FEEDING TUBE BID 03/27/20 03/28/21 History gram-2 kcal/mL liquid for tube feed (Nutren 2.0) loratadine 10 mg tablet 10 mg FEEDING TUBE DAILY PRN 05/28/20 03/28/21 History fentanyl 12 mcg/hr transdermal 1 patch TRANSDERMAL Q72H #1 ea 09/17/20 03/28/21 Rx patch azithromycin 250 mg tablet 500 mg FEEDING TUBE MOWEFR tab 11/21/20 03/28/21 History (Zithromax) gabapentin 300 mg capsule 300 mg FEEDING TUBE TID cap 11/21/20 03/28/21 History mirtazapine 45 mg tablet 45 mg FEEDING TUBE HS #90 tab 11/28/20 03/28/21 Rx losartan 25 mg tablet 25 mg FEEDING TUBE DAILY #90 tab 01/27/21 03/28/21 Rx buspirone 10 mg tablet 10 mg PO BID #60 tab 02/03/21 03/28/21 Rx Oxygen Home ea 02/06/21 History guaifenesin 100 mg/5 mL oral 200 mg PO BID PRN ml 02/06/21 03/28/21 History liquid (Mucinex Fast-Max Chest Congestion) ferrous sulfate 220 mg (44 mg 220 mg FEEDING TUBE DAILY 03/28/21 03/28/21 History iron)/5 mL oral elixir hydromorphone 1 mg/mL oral liquid 3 mg FEEDING TUBE Q4H PRN 03/28/21 03/28/21 History hyoscyamine sulfate 0.125 mg tablet 0.125 mg SUBLINGUAL DAILY PRN 03/28/21 03/28/21 History morphine concentrate 100 mg/5 mL 5 mg SUBLINGUAL Q2H PRN 03/28/21 03/28/21 History (20 mg/mL) oral solution oxycodone 5 mg/5 mL oral solution 10 mg PO .Q4-6H PRN 03/28/21 03/28/21 History potassium chloride 10 mEq 10 meq PO DAILY 03/28/21 03/28/21 History tablet,extended release prednisone 10 mg tablet 10 mg FEEDING TUBE DAILY 03/28/21 03/28/21 History prednisone 5 mg tablet 5 mg FEEDING TUBE DAILY 03/28/21 03/28/21 History Past Med/Surg History Medical History Anxiety Cancer of supraglottis "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 Radiation completed 02/28/2010 received 7200 cGy Finding of asymmetry of larynx on the right. 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 Radiation completed 02/28/2010 received 7200 cGy Finding of asymmetry of larynx on the right. Plan for laryngoscopy and biopsy 01/27/2017 " Cervical stenosis of spinal canal Chronic hypoxemic respiratory failure Chronic low back pain [facility]" COPD (chronic obstructive pulmonary disease) "is on home oxygen" GIB (gastrointestinal bleeding) Hypothyroidism Insomnia Lung cancer (10/04/17) Lung nodules Mass of lower lobe of left lung Oxygen dependent Presence of externally removable percutaneous endoscopic gastrostomy (PEG) tube (~2019) Radiation fibrosis of lung Surgical History H/O cervical spine surgery H/O neck surgery right side Percutaneous endoscopic gastrostomy status S/P lobectomy of lung Family History Other No pertinent family history Denies family history of Ovarian cancer Prostate cancer Breast cancer Lung cancer Colorectal cancer Social History Smoking Status: Never smoker Tobacco Type: Cigarettes Second Hand Exposure: No; Hx Alcohol Use: No Hx Substance Use: No Preferred Language: Mozambican Communication Ability: Effective Visual Impairment: No Limitations Hearing Ability: Normal Aircraft Cleaner Required: No Beliefs That Will Affect Care: None marital status: Single Current Living Situation: Spouse current occupational status: retired Feels Safe at Home: Yes caffeine: No Dental Care, Regularly: Yes Physical Activity Frequency: Does not Exercise Seatbelt Use: always Sunscreen Use: Yes Assistive Devices: Oxygen - Continuous Review of Systems Review of Systems: All systems reviewed & are unremarkable except as noted in HPI & below Physical Exam Physical Exam: General: patient resting comfortably, NAD, non-toxic in appearance, AA&O x 4 Skin: warm, dry, intact, no rashes or lesions HEENT: NC/AT, PERRL, EOMI, anicteric sclera, conjunctiva without injection, external ear normal to inspection and nontender, nares patent, moist mucus membranes, dentition intact, no oropharyngeal lesions, neck supple, trachea midline, no LAD, no thyromegaly, no JVD Heart: +S1/S2, regular, no m/r/g Lungs: equal air entry bilaterally, no rales/rhonchi/wheezes Abd: +BS, soft, NT/ND, no masses/organomegaly/ascites Ext: warm, 2+ pulses in UE/LE bilaterally, no clubbing/cyanosis or edema Neuro: nonfocal, patient AA&O x 4, speech intact, no facial droop, moving all extremities on command with equal strength 5/5 Results & Data Results & Data ([facility]) Vital Signs (Past 12 Hours) Vital Signs Temp Pulse Pulse Resp BP BP Pulse Ox 03/28/21 16:50 87 22 158/97 H 95 03/28/21 14:53 36.8 C 80 20 168/102 H 93 03/28/21 13:32 36.8 C 98 H 18 167/74 H 92 Laboratory Results Laboratory Results WBC 6.35 K/uL (4.8-10.8) 03/28/21 17:13 RBC 3.91 M/uL (4.7-6.1) L 03/28/21 17:13 Hgb 8.5 g/dL (14.0-18.0) L 03/28/21 17:13 Hct 29.4 % (42-52) L 03/28/21 17:13 MCV 75.2 fL (80-100) L 03/28/21 17:13 MCH 21.7 pg (25-34) L 03/28/21 17:13 MCHC 28.9 g/dL (32-36) L 03/28/21 17:13 RDW Std Deviation 53.5 fL (36.4-46.3) H 03/28/21 17:13 RDW Coeff of Stephanie 19.2 % (11.5-14.5) H 03/28/21 17:13 Plt Count 359 K/uL (130-400) 03/28/21 17:13 MPV 8.7 fL (7.4-10.4) 03/28/21 17:13 Immature Gran % (Auto) 0.2 % 03/28/21 17:13 Neut % (Auto) 78.7 % 03/28/21 17:13 Lymph % (Auto) 9.6 % 03/28/21 17:13 [place] % (Auto) 7.9 % 03/28/21 17:13 Eos % (Auto) 3.1 % 03/28/21 17:13 Baso % (Auto) 0.5 % 03/28/21 17:13 Neut # (Auto) 5.00 K/uL (1.4-6.5) 03/28/21 17:13 Lymph # (Auto) 0.61 K/uL (1.2-3.4) L 03/28/21 17:13 [place] # (Auto) 0.50 K/uL (0.11-0.59) 03/28/21 17:13 Eos # (Auto) 0.20 K/uL (0-0.5) 03/28/21 17:13 Baso # (Auto) 0.03 K/uL (0-0.2) 03/28/21 17:13 Immature Gran # (Auto) 0.01 K/uL (0.00-0.02) 03/28/21 17:13 Sodium 135 mmol/L (136-145) L 03/28/21 17:13 Potassium 3.7 mmol/L (3.5-5.1) 03/28/21 17:13 Chloride 99 mmol/L (98-107) 03/28/21 17:13 Carbon Dioxide 30 mmol/L (21-32) 03/28/21 17:13 Anion Gap 5.0 (3-11) 03/28/21 17:13 BUN 13 mg/dl (7-18) 03/28/21 17:13 Creatinine 0.51 mg/dl (0.6-1.4) L 03/28/21 17:13 Est Cr Clr Drug Dosing 161.6 ml/min 03/28/21 17:13 Est GFR ( Amer) 128.0 ml/min 03/28/21 17:13 Est GFR (Non-Af Amer) 110.5 ml/min 03/28/21 17:13 BUN/Creatinine Ratio 24.7 (10-20) H 03/28/21 17:13 Glucose 100 mg/dl (70-99) H 03/28/21 17:13 Calcium 8.6 mg/dl (8.5-10.1) 03/28/21 17:13 Total Bilirubin 0.4 mg/dl (0.2-1) 03/28/21 17:13 AST 17 U/L (15-37) 03/28/21 17:13 ALT 33 U/L (12-78) 03/28/21 17:13 Alkaline Phosphatase 77 U/L (45-117) 03/28/21 17:13 Total Protein 7.4 gm/dl (6.4-8.2) 03/28/21 17:13 Albumin 3.3 gm/dl (3.4-5.0) L 03/28/21 17:13 Globulin 4.1 gm/dl (2.5-4.0) H 03/28/21 17:13 Albumin/Globulin Ratio 0.8 (0.9-2) L 03/28/21 17:13 COVID-19 Eval Order Covid19 at [facility] 03/28/21 15:08 SARS-CoV-2 (PCR) NEGATIVE (Negative) 03/28/21 15:08 Impressions Venous Doppler Study 03/28/21 18:16 ULTRASOUND RIGHT LOWER EXTREMITY VENOUS CLINICAL HISTORY: Right leg swelling. COMPARISON STUDY: No priors. TECHNIQUE: Real-time, grayscale, and color Doppler sonography of the deep veins of the right lower extremity was performed from the inguinal crease to the calf. Compression and augmentation were utilized. FINDINGS: There is no sonographic evidence of deep venous thrombosis identified in the right lower extremity. The common femoral, superficial femoral, and popliteal veins are patent and normally compressible. The greater saphenous vein and the profunda femoris vein at the junction with the common femoral vein are clear. The visualized calf veins are patent. IMPRESSION: There is no sonographic evidence of deep venous thrombosis identified in the right lower extremity. ACT 112: Negative or not required by law. Electronically signed by: Alex Taylor M.D. 03/28/2021 7:01 PM Code Status & VTE Plan VTE Prophylaxis Plan VTE Prophylaxis will be ordered: Yes PG Care Time/CCT Total # of Minutes Spent Total Time Spent with Patient: Total time spent is greater than 50% in coordination of care (as documented) at patient's floor/unit and/or counseling patient: Coding Level of Care Code 51876 Initial Inpt Care Lvl 2 Diagnoses PEG tube malfunction K94.23 COPD (chronic obstructive pulmonary disease) J44.9 COPD type: unspecified COPD Anxiety F41.9 Unspecified essential hypertension I10 Hypothyroidism E03.9 Hypothyroidism type: unspecified Chronic pain G89.29 (1) COPD (chronic obstructive pulmonary disease) COPD type: unspecified COPD Qualified Code(s): J44.9 - Chronic obstructive pulmonary disease, unspecified (2) Hypothyroidism Hypothyroidism type: unspecified Qualified Code(s): E03.9 - Hypothyroidism, unspecified
[2021-03-28 18:26] LABS: Basophils # (auto) 0.03 K/uL (0-0.2); Basophils % (auto) 0.5 %; Eosinophils % (auto) 3.1 %; Hematocrit (blood only) 29.4 % (42-52); Hemoglobin 8.5 g/dL (14.0-18.0); Immature Granulocytes # (auto) 0.01 K/uL (0.00-0.02); Immature Granulocytes % (auto) 0.2 %; Lymphocytes # (auto) 0.61 K/uL (1.2-3.4); Lymphocytes % (auto) 9.6 %; Mean Corpuscular Hemoglobin 21.7 pg (25-34); Mean Corpuscular Hgb Conc 28.9 g/dL (32-36); Mean Corpuscular Volume 75.2 fL (80-100); Mean Platelet Volume 8.7 fL (7.4-10.4); Monocytes % (auto) 7.9 %; Neutrophils % (auto) 78.7 %; Platelet Count 359 K/uL (130-400); RDW Coefficient of Variation 19.2 % (11.5-14.5); RDW Standard Deviation 53.5 fL (36.4-46.3); Red Blood Count 3.91 M/uL (4.7-6.1); White Blood Count 6.35 K/uL (4.8-10.8)
[2021-03-28] MEDS ORDERED: oxyCODONE HCL SOLN 5 MG/5 ML UDC PO ONE (18:45)
--- NOTE | 2021-03-28 19:03 | Ultrasound Report ---
ULTRASOUND RIGHT LOWER EXTREMITY VENOUS CLINICAL HISTORY: Right leg swelling. COMPARISON STUDY: No priors. TECHNIQUE: Real-time, grayscale, and color Doppler sonography of the deep veins of the right lower ex tremity was performed from the inguinal crease to the calf. Compression and augmentation were utilize d. FINDINGS: There is no sonographic evidence of deep venous thrombosis identified in the right lower ex tremity. The common femoral, superficial femoral, and popliteal veins are patent and normally jimi sible. The greater saphenous vein and the profunda femoris vein at the junction with the common femor al vein are clear. The visualized calf veins are patent. IMPRESSION: There is no sonographic evidence of deep venous thrombosis identified in the right lower extremity. ACT 112: Negative or not required by law. Electronically signed by: Alex Taylor M.D. 03/28/2021 7:01 PM
[2021-03-28] MEDS ORDERED: ALBUT/IPRATROP 3MG/0.5MG NEB 3 ML VIAL INH PRN (20:14)
[2021-03-28] MEDS: oxyCODONE HCL SOLN 5 MG/5 ML UDC PO PRN (20:30)
[2021-03-28] MEDS ORDERED: TUBE FEEDING WATER FLUSH GT SCH (21:00)
[2021-03-28] MEDS: GABAPENTIN 250 MG/5 ML 470 ML BTL GT SCH (21:44)
[2021-03-28] MEDS: busPIRone 5 MG TAB GT SCH (21:44)
[2021-03-28] MEDS: MIRTAZAPINE SOLTAB 15 MG PO SCH (21:44)
[2021-03-28] MEDS: ENOXAPARIN INJ 40 MG/0.4 ML SYR SQ SCH (21:45)
[2021-03-28] MEDS: SODIUM CHLORIDE 0.9% 1000ML 1,000 ML IV SCH (23:32)
[2021-03-28] MEDS: CHECK fentaNYL PATCH PLACEMENT SCH ×2 (23:32)
[2021-03-29] MEDS: LEVOTHYROXINE SODIUM 137 MCG TABLET PO SCH (05:38)
[2021-03-29] MEDS: oxyCODONE HCL SOLN 5 MG/5 ML UDC PO PRN ×3 (05:38→20:42)
[2021-03-29] MEDS: guaiFENesin SUGAR FREE 200 MG/10 ML UDC PO PRN ×3 (05:55→20:42)
[2021-03-29] MEDS: CHECK fentaNYL PATCH PLACEMENT SCH ×6 (08:41→23:19)
[2021-03-29] MEDS: POTASSIUM CHLORIDE 10 MEQ TABCR PO SCH (08:43)
[2021-03-29] MEDS: busPIRone 5 MG TAB GT SCH ×2 (08:43→20:41)
[2021-03-29] MEDS: predniSONE 5 MG TAB GT SCH (08:43)
[2021-03-29] MEDS: predniSONE 10 MG TABLET GT SCH (08:43)
[2021-03-29] MEDS: LOSARTAN POTASSIUM 25 MG TAB GT SCH (08:44)
[2021-03-29] MEDS: FERROUS SULFATE ELIX 220MG/5ML PEG SCH (08:44)
[2021-03-29] MEDS: GABAPENTIN 250 MG/5 ML 470 ML BTL GT SCH ×3 (08:44→20:42)
[2021-03-29] MEDS ORDERED: FERROUS SULFATE ELIX 220MG/5ML PEG SCH (09:00)
[2021-03-29] MEDS ORDERED: UMECLIDINIUM BROMIDE 62.5MCG/BLISTER 7 PUFFS/INHALER INH SCH (10:15)
[2021-03-29] MEDS: SODIUM CHLORIDE 0.9% 1000ML 1,000 ML IV SCH (10:38)
[2021-03-29] MEDS: FLUTICASONE/VILANTEROL 200/25MCG 14 PUFFS/INHALER INH SCH (14:23)
--- NOTE | 2021-03-29 15:42 | Hospitalist Progress Note ---
Date of Service March 29, 2021 Assessment & Plan (1) PEG tube malfunction: Plan: - Continue routine PEG management - Can continue his home feeds (may need interchanged brand if he did not bring this in) and 60 mL free water flushes; Dietetics consulted for orders and management - Can swallow liquids and can drink for comfort - will have to be NPO for Wednesday - GI consultation - planning on PEG change on Wednesday (2) COPD (chronic obstructive pulmonary disease): Plan: - Chronic/Stable. Adequate oxygenation on nasal cannula. - Continue duo nebs and albuterol as needed; Continue Symbicort and Spiriva (interchange inhalers per formulary) - Continue azithromycin q. Wednesday - Continue prednisone daily (3) Anxiety: Plan: - Chronic/Stable. Continue BuSpar 10 mg twice daily (4) Unspecified essential hypertension: Plan: - Chronic. Elevated blood pressure at 161/89 Continue Cozaar 25 mg daily Continue to monitor (5) Hypothyroidism: Plan: - Chronic/Stable. Continue Synthroid 137 mcg p.o. daily (6) Chronic pain: Plan: Patient with longstanding history of chronic pain. Is on large amount of opiates Continue oxycodone Continue fentanyl patch Continue gabapentin Plan: DVT ProphylaxisLovenox 40 mg daily - will hold dose tomorrow in anticipation of Wednesday's procedure Disposition: - Await PEG tube placement on Wednesday and GI recommendations Admission and Anticipated Discharge Date Admission Date: March 28, 2021 Subjective Reports doing well today. Is having chronic pain but states it is tolerable with his current pain regimen. He is awaiting PEG tube replacement. Due to his significant other being hospitalized, he is having difficulty doing the feeds at home due to the malfunction. He can take in liquids but unable to tolerating solids orally. He has been in sinus tach and appears this is common on other admissions. He states he has been told his HR runs a bit fast but is not having chest pain or worsening SOB. He does have lung CA and requires high levels of O2 and was recently enrolled in hospice services. He verbalizes no new complaints. Review of Systems Review of Systems: REVIEW OF SYSTEMS General/Constitutional: Denies fever/chills, fatigue, weakness, weight gain/loss ENT: + only can swallow liquids, unable to swallow solids; Denies visual changes, nasal drainage, hearing loss, sore throat Cardiovascular: Denies chest pain, palpitations, edema Respiratory: + cough/SOB (chronic and stable); Denies orthopnea GI: Denies nausea, vomiting, abdominal pain, constipation, diarrhea : Denies dysuria Musculoskeletal: + diffuse chronic pain (controlled with pain regimen) Neurologic: Denies dizziness/lightheadedness Skin: Denies rash, itch, new skin changes Physical Exam Physical Exam: PHYSICAL EXAM General Appearance: chronically ill appearing in NAD who is A&O x 3 HEENT: Head is normocephalic/atraumatic; Hearing grossly intact Neck: Supple; Trachea midline; Neg JVD Heart: Reg rhythm; mildly tachy with no M/G/R Lungs: Diffuse exp wheeze but good air flow; Respirations unlabored; Neg accessory muscle use Abdomen: Soft, non-tender, non-distended; Positive BS x 4 quadrants; PEG tube present on L side with no surrounding erythema or discharge Extremities: Neg cyanosis or edema Neurological: Speech clear; Gross motor/sensory function intact; Neg focal neurologic deficits Psychiatric: Appropriate mood/affect Skin: Normal Color; Warm/Dry Results & Data Results & Data ([facility]) Vital Signs (Past 12 Hours) Vital Signs Temp Pulse Resp BP Pulse Ox 03/29/21 09:36 115 H 20 97 03/29/21 07:16 36.9 C 114 H 20 170/83 H 96 PG Care Time/CCT Total # of Minutes Spent Total Time Spent with Patient: Total time spent is greater than 50% in coordinat ion of care (as documented) at patient's floor/unit and/or counseling patient: Coding Level of Care Code 15164 Subseq Hosp Care Lvl 3 Diagnoses PEG tube malfunction K94.23 COPD (chronic obstructive pulmonary disease) J44.9 COPD type: unspecified COPD Anxiety F41.9 Unspecified essential hypertension I10 Hypothyroidism E03.9 Hypothyroidism type: unspecified Chronic pain G89.29 (1) COPD (chronic obstructive pulmonary disease) COPD type: unspecified COPD Qualified Code(s): J44.9 - Chronic obstructive pulmonary disease, unspecified (2) Hypothyroidism Hypothyroidism type: unspecified Qualified Code(s): E03.9 - Hypothyroidism, unspecified
[2021-03-29] MEDS ORDERED: hydrALAZINE HCL 20 MG/ML VIAL IV PRN (18:08)
[2021-03-29] MEDS: MIRTAZAPINE SOLTAB 15 MG PO SCH (20:42)
[2021-03-29] MEDS: ENOXAPARIN INJ 40 MG/0.4 ML SYR SQ SCH (20:42)
[2021-03-30] MEDS: ALBUT/IPRATROP 3MG/0.5MG NEB 3 ML VIAL INH PRN ×6 (00:15→22:24)
[2021-03-30] MEDS: oxyCODONE HCL SOLN 5 MG/5 ML UDC PO PRN ×4 (00:24→14:45)
[2021-03-30] MEDS ORDERED: MELATONIN 3 MG TAB PO PRN ×2 (00:35→00:58)
[2021-03-30] MEDS ORDERED: MELATONIN 3 MG TAB PO ONE (01:06)
[2021-03-30] MEDS: ACETAMINOPHEN SUSP 325 MG/10.15 ML UDC PEG PRN ×2 (01:08→19:59)
[2021-03-30] MEDS: LEVOTHYROXINE SODIUM 137 MCG TABLET PO SCH (05:11)
[2021-03-30] MEDS: CHECK fentaNYL PATCH PLACEMENT SCH ×4 (09:04→15:29)
[2021-03-30] MEDS: FLUTICASONE/VILANTEROL 200/25MCG 14 PUFFS/INHALER INH SCH (09:05)
[2021-03-30] MEDS: UMECLIDINIUM BROMIDE 62.5MCG/BLISTER 7 PUFFS/INHALER INH SCH (09:05)
[2021-03-30] MEDS: guaiFENesin SUGAR FREE 200 MG/10 ML UDC PO PRN (09:05)
[2021-03-30] MEDS: POTASSIUM CHLORIDE 10 MEQ TABCR PO SCH (09:06)
[2021-03-30] MEDS: predniSONE 5 MG TAB GT SCH (09:06)
[2021-03-30] MEDS: LOSARTAN POTASSIUM 25 MG TAB GT SCH (09:06)
[2021-03-30] MEDS: FERROUS SULFATE ELIX 220MG/5ML PEG SCH (09:07)
[2021-03-30] MEDS: predniSONE 10 MG TABLET GT SCH (09:07)
[2021-03-30] MEDS: busPIRone 5 MG TAB GT SCH ×2 (09:07→20:00)
[2021-03-30] MEDS: GABAPENTIN 250 MG/5 ML 470 ML BTL GT SCH ×3 (09:09→19:59)
[2021-03-30] MEDS ORDERED: LORazepam 0.5 MG/1 ML VIAL IV PRN (10:08)
--- NOTE | 2021-03-30 10:08 | Hospitalist Progress Note ---
Date of Service March 30, 2021 Assessment & Plan (1) PEG tube malfunction: Plan: - Continue routine PEG management - Can continue his home feeds and 60 mL free water flushes; Dietetics consulted for orders and management - Can swallow liquids and can drink for comfort - will have to be NPO for Wednesday - Will order CXR, PT/INR/PTT, and EKG for pre-operative - GI consultation - planning on PEG change on Wednesday (2) COPD (chronic obstructive pulmonary disease): Plan: - Chronic/Stable. Adequate oxygenation on nasal cannula. - Continue duo nebs and albuterol as needed; Continue Symbicort and Spiriva (interchange inhalers per formulary) - Continue azithromycin q. Wednesday - Continue prednisone daily (3) Anxiety: Plan: - Chronic/Stable. Continue BuSpar 10 mg twice daily; will add Ativan 0.5 mg IV PRN which may help with the HRs as well as he reports increased stress/anxiety (4) Unspecified essential hypertension: Plan: - Chronic. Elevated blood pressure Continue Cozaar 25 mg daily; can use Hydralazine sparingly - may be related to his underlying condition, anxiety, pain Continue to monitor (5) Hypothyroidism: Plan: - Chronic/Stable. Continue Synthroid 137 mcg p.o. daily (6) Chronic pain: Plan: - Patient with longstanding history of chronic pain. Is on large amount of opiates Continue oxycodone Continue fentanyl patch - reports patch was placed on 27 March - changed order to allow for new patch placement today Continue gabapentin Plan: DVT ProphylaxisLovenox 40 mg daily - will hold now in anticipation of Wednesday's procedure Disposition: - Await PEG tube placement on Wednesday and GI recommendations Admission and Anticipated Discharge Date Admission Date: March 28, 2021 Subjective Reports doing okay today. Feels his breathing is a bit worse today but responding to nebulizers. He says at home he will use them 2-3 times a day. He was getting him medications upon my arrival and is on chronic steroids. He is awaiting new PEG tube placement tomorrow. His heart rate continues to stay high and he reports it commonly runs there but no chest pain. EKG yesterday revealed sinus tach. He also reports he is anxious and stressed out right now with his medical condition and with his significant other being in the hospital. His pain is a little increased today too and he states he put the fentanyl patches on before he came to the hospital on Wednesday. Review of Systems Review of Systems: REVIEW OF SYSTEMS General/Constitutional: Denies fever/chills, fatigue ENT: + only can swallow liquids, unable to swallow solids (chronic/stable); Denies nasal drainage, sore throat Cardiovascular: Denies chest pain, palpitations, edema Respiratory: + cough (chronic), + SOB (chronic) ; Denies orthopnea GI: Denies nausea, vomiting, abdominal pain, constipation, diarrhea : Denies dysuria Musculoskeletal: + diffuse chronic pain Neurologic: Denies dizziness/lightheadedness Skin: Denies rash, itch, new skin changes Physical Exam 2 Physical Exam: PHYSICAL EXAM General Appearance: chronically ill appearing in NAD who is A&O x 3 HEENT: Head is normocephalic/atraumatic; Hearing grossly intact Neck: Supple; Trachea midline; Neg JVD Heart: Reg rhythm; tachy with no M/G/R Lungs: Diffuse exp wheeze but good air flow and absent in RLL (; Respirations unlabored; Neg accessory muscle use Abdomen: Soft, non-tender, non-distended; Positive BS x 4 quadrants; PEG tube present on L side with no surrounding erythema or discharge Extremities: Neg cyanosis or edema Neurological: Speech clear; Gross motor/sensory function intact; Neg focal neurologic deficits Psychiatric: Appropriate mood/affect Skin: Normal Color; Warm/Dry Results & Data Results & Data ([facility]) Vital Signs (Past 12 Hours) Vital Signs Temp Pulse Resp BP Pulse Ox 03/30/21 07:46 112 H 20 98 03/30/21 06:59 37.0 C 112 H 18 179/93 H 98 03/30/21 00:44 102 H 159/74 H 93 03/30/21 00:41 118 H 22 92 03/29/21 22:10 36.8 C 106 H 20 128/67 92 PG Care Time/CCT Total # of Minutes Spent Total Time Spent with Patient: Total time spent is greater than 50% in coordination of care (as documented) at patient's floor/unit and/or counseling patient: Coding Level of Care Code 51102 Subseq Hosp Care Lvl 3 Diagnoses PEG tube malfunction K94.23 COPD (chronic obstructive pulmonary disease) J44.9 COPD type: unspecified COPD Anxiety F41.9 Unspecified essential hypertension I10 Hypothyroidism E03.9 Hypothyroidism type: unspecified Chronic pain G89.29 (1) COPD (chronic obstructive pulmonary disease) COPD type: unspecified COPD Qualified Code(s): J44.9 - Chronic obstructive pulmonary disease, unspecified (2) Hypothyroidism Hypothyroidism type: unspecified Qualified Code(s): E03.9 - Hypothyroidism, unspecified
[2021-03-30] MEDS ORDERED: fentaNYL 12 MCG/HR TDSY TD SCH (11:00)
[2021-03-30] MEDS ORDERED: fentaNYL 25 MCG/HR TDSY TD SCH (11:00)
--- NOTE | 2021-03-30 12:42 | XRay Report ---
SINGLE VIEW CHEST CLINICAL HISTORY: COPD. Preoperative examination FINDINGS: An AP, portable, upright chest radiograph is compared to study dated 09/18/2020 and correlat ed with chest CT dated 12/27/2020. The examination is degraded by portable technique and apical lordot ic positioning. The heart is mildly enlarged noting atherosclerotic calcification of the thoracic aor ta. Enlargement of the central pulmonary arteries suggests pulmonary artery hypertension. Advanced em physema and chronic interstitial thickening are similar to previous. Foci of parenchyma scarring are again seen throughout both lungs. Right perihilar and left lower lobe irregular airspace opacities ar e similar to previous. There is no superimposed airspace process consolidation to suggest pneumonia. No large pleural effusion or pneumothorax is seen. The skeletal structures are osteopenic. The bony t horax is grossly intact. Fusion hardware is noted in the lower cervical spine. IMPRESSION: 1. Cardiomegaly, advanced emphysema, and chronic parenchymal changes/opacities as above. These were b mirza assessed on the 12/27/[address] 2. There is no evidence of superimposed airspace consolidation or large pleural effusion. ACT 112: Negative or not required by law. Electronically signed by: Alex Taylor M.D. 03/30/2021 12:41 PM
[2021-03-30] MEDS: ENOXAPARIN INJ 40 MG/0.4 ML SYR SQ SCH (19:58)
[2021-03-30] MEDS: MIRTAZAPINE SOLTAB 15 MG PO SCH (20:00)
[2021-03-31] MEDS: CHECK fentaNYL PATCH PLACEMENT SCH ×6 (01:11→15:49)
[2021-03-31] MEDS: oxyCODONE HCL SOLN 5 MG/5 ML UDC PO PRN ×2 (04:15→08:18)
[2021-03-31] MEDS: LEVOTHYROXINE SODIUM 137 MCG TABLET PO SCH (04:18)
[2021-03-31 06:51] LABS: Hematocrit (blood only) 29.3 % (42-52); Hemoglobin 8.5 g/dL (14.0-18.0); Mean Corpuscular Hemoglobin 22.4 pg (25-34); Mean Corpuscular Volume 77.1 fL (80-100); Platelet Count 367 K/uL (130-400); RDW Coefficient of Variation 19.3 % (11.5-14.5); RDW Standard Deviation 54.7 fL (36.4-46.3); White Blood Count 6.05 K/uL (4.8-10.8)
[2021-03-31 07:01] LABS: Partial Thromboplastin Ratio 0.9; Partial Thromboplastin Time 23.9 Seconds (21.0-31.0); Prothrombin Time 9.9 Seconds (9.0-12.0)
[2021-03-31] MEDS: ALBUT/IPRATROP 3MG/0.5MG NEB 3 ML VIAL INH PRN ×3 (07:24→14:47)
[2021-03-31 07:29] LABS: BUN Creatinine Ratio 31.3 (10-20); Calcium 8.9 mg/dl (8.5-10.1); Est GFR (African American) 120.6 ml/min; Potassium 3.7 mmol/L (3.5-5.1)
[2021-03-31] MEDS: POTASSIUM CHLORIDE 10 MEQ TABCR PO SCH (08:19)
--- NOTE | 2021-03-31 08:45 | Anesthesiology Consultation ---
Date of Service March 31, 2021 Assessment & Plan ASA ASA4 Proposed Anesthesia Anesthesia Type: MAC Risk / Benefits Reviewed With: PT / POA / Parent / Guardian, Accepts Plan and Informed Consent Obtained History Surgery Operation Date: 03/31/21 16:00 Proposed Procedures p Esophagogastroduodenoscopy Dr Sigala - Gregor Mariano MD Height/Weight Height: 5 ft 10 in Weight: 96.3 kg Allergies Allergy/AdvReac Type Severity Reaction Status Date / Time NSAIDS (Non-Steroidal AdvReac Mild upset Verified 03/31/21 08:41 Anti-Inflamma stomach Medications Home Medications Medication Instructions Recorded Confirmed Last Taken loperamide 1 mg/7.5 mL oral liquid 2 mg FEEDING TUBE Q4H PRN 02/15/19 03/28/21 01/29/20 (Imodium A-D) wheat dextrin 3 gram/3.8 gram oral 1.5 gm PO DAILY PRN gm 02/15/19 03/28/21 Unknown powder (Benefiber Sugar Free (dextrin)) levothyroxine 137 mcg capsule 137 mcg FEEDING TUBE DAILY 05/19/19 03/28/21 03/28/21 ipratropium 0.5 mg-albuterol 3 mg 3 ml INHALATION Q4H PRN ml 01/15/20 03/28/21 03/28/21 (2.5 mg base)/3 mL nebulization soln fentanyl 25 mcg/hr transdermal 1 patch TRANSDERMAL Q72H 03/01/20 03/28/21 03/28/21 patch nutritional supplements 0.08 2 ea FEEDING TUBE BID 03/27/20 03/28/21 03/28/21 gram-2 kcal/mL liquid for tube feed (Nutren 2.0) loratadine 10 mg tablet 10 mg FEEDING TUBE DAILY PRN 05/28/20 03/28/21 Unknown fentanyl 12 mcg/hr transdermal 1 patch TRANSDERMAL Q72H #1 ea 09/17/20 03/28/21 03/28/21 patch azithromycin 250 mg tablet 500 mg FEEDING TUBE MOWEFR tab 11/21/20 03/28/21 03/28/21 (Zithromax) gabapentin 300 mg capsule 300 mg FEEDING TUBE TID cap 11/21/20 03/28/21 03/27/21 mirtazapine 45 mg tablet 45 mg FEEDING TUBE HS #90 tab 11/28/20 03/28/21 03/27/21 losartan 25 mg tablet 25 mg FEEDING TUBE DAILY #90 tab 01/27/21 03/28/21 03/27/21 buspirone 10 mg tablet 10 mg PO BID #60 tab 02/03/21 03/28/21 03/28/21 Oxygen Home ea 02/06/21 Unknown guaifenesin 100 mg/5 mL oral 200 mg PO BID PRN ml 02/06/21 03/28/21 Unknown liquid (Mucinex Fast-Max Chest Congestion) ferrous sulfate 220 mg (44 mg 220 mg FEEDING TUBE DAILY 03/28/21 03/28/21 03/27/21 iron)/5 mL oral elixir hydromorphone 1 mg/mL oral liquid 3 mg FEEDING TUBE Q4H PRN 03/28/21 03/28/21 03/28/21 hyoscyamine sulfate 0.125 mg tablet 0.125 mg SUBLINGUAL DAILY PRN 03/28/21 03/28/21 Unknown morphine concentrate 100 mg/5 mL 5 mg SUBLINGUAL Q2H PRN 03/28/21 03/28/21 Unknown (20 mg/mL) oral solution oxycodone 5 mg/5 mL oral solution 10 mg PO .Q4-6H PRN 03/28/21 03/28/21 Unknown potassium chloride 10 mEq 10 meq PO DAILY 03/28/21 03/28/21 03/27/21 tablet,extended release prednisone 10 mg tablet 10 mg FEEDING TUBE DAILY 03/28/21 03/28/21 03/28/21 prednisone 5 mg tablet 5 mg FEEDING TUBE DAILY 03/28/21 03/28/21 03/28/21 Active Medications Generic Name Dose Route Start Last Admin Trade Name Freq PRN Reason Stop Dose Admin Acetaminophen 650 mg 03/30/21 00:35 03/30/21 19:59 Acetaminophen Susp 325 Mg/10.15 Ml Udc PEG 04/29/21 00:34 650 mg Q4H PRN Administration headache Albuterol 3 ml 03/30/21 10:06 03/31/21 07:24 Albut/Ipratrop 3mg/0.5mg Neb 3 Ml Vial INH 04/29/21 00:35 3 ml Q4H PRN Administration Shortness Of Breath Buspirone HCl 10 mg 03/28/21 21:00 03/30/21 20:00 Buspirone 5 Mg Tab GT 04/27/21 20:59 10 mg BID JOCELYN Administration Enoxaparin Sodium 40 mg 03/28/21 21:00 03/30/21 19:58 Enoxaparin Inj 40 Mg/0.4 Ml Syr SQ 04/27/21 20:13 40 mg Q24H JOCELYN Administration Fentanyl 25 mcg 03/30/21 11:00 03/30/21 11:41 Fentanyl 25 Mcg/Hr Tdsy TD 04/13/21 10:59 25 mcg Q72H JOCELYN Administration Fentanyl 12 mcg 03/30/21 11:00 03/30/21 11:41 Fentanyl 12 Mcg/Hr Tdsy TD 04/13/21 10:59 12 mcg Q72H JOCELYN Administration Ferrous Sulfate 220 mg 03/29/21 09:00 03/30/21 09:07 Ferrous Sulfate Elix 220mg/5ml PEG 04/28/21 08:59 220 mg DAILY JOCELYN Administration Fluticasone/Vilanterol 1 puffs 03/29/21 10:15 03/30/21 09:05 Fluticasone/Vilanterol 200/25mcg 14 Puffs/Inhaler INH 04/28/21 10:14 1 puffs DAILY JOCELYN Administration Gabapentin 300 mg 03/28/21 21:00 03/30/21 19:59 Gabapentin 250 Mg/5 Ml 470 Ml Btl GT 04/27/21 20:59 300 mg TID JOCELYN Administration Guaifenesin 200 mg 03/28/21 20:18 03/30/21 09:05 Guaifenesin Sugar Free 200 Mg/10 Ml Udc PO 04/27/21 20:17 200 mg BID PRN Administration Mucus Buildup Hydralazine HCl 10 mg 03/29/21 18:08 03/29/21 18:24 Hydralazine Hcl 20 Mg/Ml Vial IV 04/28/21 18:07 10 mg Q6H PRN Administration Hypertension Levothyroxine Sodium 137 mcg 03/29/21 06:30 03/31/21 04:18 Levothyroxine Sodium 137 Mcg Tablet PO 04/28/21 06:29 137 mcg DAILYBB JOCELYN Administration Losartan Potassium 25 mg 03/29/21 09:00 03/30/21 09:06 Losartan Potassium 25 Mg Tab GT 04/28/21 08:59 25 mg DAILY JOCELYN Administration Mirtazapine 45 mg 03/28/21 21:00 03/30/21 20:00 Mirtazapine Soltab 15 Mg PO 04/27/21 20:59 45 mg HS JOCELYN Administration Miscellaneous 1 ea 03/30/21 10:59 03/30/21 11:41 Fentanyl Patch Remove & Waste N/A 04/29/21 10:58 1 ea Q72H JOCELYN Administration Miscellaneous 1 ea 03/30/21 16:00 03/31/21 08:18 Check Fentanyl Patch Placement N/A 04/29/21 15:59 1 ea QS JOCELYN Administration Miscellaneous 1 ea 03/30/21 10:59 03/30/21 11:41 Fentanyl Patch Remove & Waste N/A 04/29/21 10:58 1 ea Q72H JOCELYN Administration Miscellaneous 1 ea 03/30/21 16:00 03/31/21 08:18 Check Fentanyl Patch Placement N/A 04/29/21 15:59 1 ea QS JOCELYN Administration Oxycodone HCl 10 mg 03/28/21 20:14 03/31/21 08:18 Oxycodone Hcl Soln 5 Mg/5 Ml Udc PO 04/11/21 20:13 10 mg Q4 PRN Administration pain Potassium Chloride 10 meq 03/29/21 09:00 03/31/21 08:19 Potassium Chloride 10 Meq Tabcr PO 04/28/21 08:59 Not Given DAILY JOCELYN Prednisone 10 mg 03/29/21 09:00 03/30/21 09:07 Prednisone 10 Mg Tablet GT 04/28/21 08:59 10 mg DAILY JOCELYN Administration Prednisone 5 mg 03/29/21 09:00 03/30/21 09:06 Prednisone 5 Mg Tab GT 04/28/21 08:59 5 mg DAILY JOCELYN Administration Umeclidinium [place] 1 puffs 03/30/21 09:00 03/30/21 09:05 Umeclidinium [place] 62.5mcg/Blister 7 Puffs/Inhaler INH 04/29/21 08:59 1 puffs QAM JOCELYN Administration NPO Date Last Intake of Fluids: 03/30/21 Time Last Intake of Fluids: 23:59 Date Last Intake of Solids: 03/30/21 Time Last Intake of Solids: 23:59 Past Medical History Medical History Anxiety Cancer of supraglottis "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 Radiation completed 02/28/2010 received 7200 cGy Finding of asymmetry of larynx on the right. 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 Radiation completed 02/28/2010 received 7200 cGy Finding of asymmetry of larynx on the right. Plan for laryngoscopy and biopsy 01/27/2017 " Cervical stenosis of spinal canal Chronic hypoxemic respiratory failure Chronic low back pain [facility]" COPD (chronic obstructive pulmonary disease) "is on home oxygen" GIB (gastrointestinal bleeding) Hypothyroidism Insomnia Lung cancer (10/04/17) Lung nodules Mass of lower lobe of left lung Oxygen dependent Presence of externally removable percutaneous endoscopic gastrostomy (PEG) tube (~2018) Radiation fibrosis of lung Exercise / Class Metabolic Activity II 4-5 Yardwork/Stairs/Walk up hill Past Family History Family History Other No pertinent family history Denies family history of Ovarian cancer Prostate cancer Breast cancer Lung cancer Colorectal cancer Past Surgical History Surgical History H/O cervical spine surgery H/O neck surgery right side Percutaneous endoscopic gastrostomy status S/P lobectomy of lung Past Anesthesia History No Hx of Anesthesia Complications and No Family Hx of Anesthesia Complications History of PONV No Hx of PONV and No Hx of Motion Sickness Social History Smoking Status: Never smoker Do You Dip or Chew Tobacco: No Hx Alcohol Use: No Hx Substance Use: No substance use type: does not use Review of Systems denies fever/cough/ colds/ chest pain/ AILYN +sob at baseline denies AILYN Physical Exam Vital Signs Last Vital Signs Temp 36.9 C 03/31/21 06:59 Pulse 107 H 03/31/21 07:24 Resp 16 03/31/21 07:24 BP 147/84 H 03/31/21 06:59 Pulse Ox 97 03/31/21 07:24 ENMT Mouth: + dentures and + poor dentition; no TMJ abnormality and no dentition abnormality Thyromental Distance: > or= 3.5 Finger Breadths Mallampati Class: I Neck + facial hair; neck extension not limited Respiratory normal respiratory effort and + uses accessory muscles; no respiratory distress Auscultation: + rhonchi Cardiovascular Rate/Rhythm: regular rate and regular rhythm Neurologic moves all extremities Psychiatric Orientation: alert and oriented x 3 Testing Laboratory Results 03/31/21 06:30 03/31/21 06:30 PT 9.9 Seconds (9.0-12.0) 03/31/21 06:30 INR 1.0 (0.9-1.1) 03/31/21 06:30 APTT 23.9 Seconds (21.0-31.0) 03/31/21 06:30
[2021-03-31] MEDS ORDERED: fentaNYL 12 MCG/HR TDSY TD SCH (09:00)
[2021-03-31] MEDS ORDERED: fentaNYL 25 MCG/HR TDSY TD SCH (09:00)
[2021-03-31] MEDS ORDERED: AZITHROMYCIN 250 MG TAB PO SCH (09:00)
--- NOTE | 2021-03-31 09:00 | History & Physical Report ---
Date of Service March 31, 2021 Assessment & Plan (1) PEG tube malfunction: Plan: PEG to be removed and new one placed endoscopically Admission and Anticipated Discharge Date Admission Date: March 28, 2021 History of Present Illness Chief Complaint: PEG replacement Primary Care Provider: Chapito Milner, DO PEG replacement Allergies Allergy/AdvReac Type Severity Reaction Status Date / Time NSAIDS (Non-Steroidal AdvReac Mild upset Verified 03/31/21 08:41 Anti-Inflamma stomach Home Medications Medication Instructions Recorded Confirmed Type loperamide 1 mg/7.5 mL oral liquid 2 mg FEEDING TUBE Q4H PRN 02/15/19 03/28/21 History (Imodium A-D) wheat dextrin 3 gram/3.8 gram oral 1.5 gm PO DAILY PRN gm 02/15/19 03/28/21 History powder (Benefiber Sugar Free (dextrin)) levothyroxine 137 mcg capsule 137 mcg FEEDING TUBE DAILY 05/19/19 03/28/21 History ipratropium 0.5 mg-albuterol 3 mg 3 ml INHALATION Q4H PRN ml 01/15/20 03/28/21 History (2.5 mg base)/3 mL nebulization soln fentanyl 25 mcg/hr transdermal 1 patch TRANSDERMAL Q72H 03/01/20 03/28/21 History patch nutritional supplements 0.08 2 ea FEEDING TUBE BID 03/27/20 03/28/21 History gram-2 kcal/mL liquid for tube feed (Nutren 2.0) loratadine 10 mg tablet 10 mg FEEDING TUBE DAILY PRN 05/28/20 03/28/21 History fentanyl 12 mcg/hr transdermal 1 patch TRANSDERMAL Q72H #1 ea 09/17/20 03/28/21 Rx patch azithromycin 250 mg tablet 500 mg FEEDING TUBE MOWEFR tab 11/21/20 03/28/21 History (Zithromax) gabapentin 300 mg capsule 300 mg FEEDING TUBE TID cap 11/21/20 03/28/21 History mirtazapine 45 mg tablet 45 mg FEEDING TUBE HS #90 tab 11/28/20 03/28/21 Rx losartan 25 mg tablet 25 mg FEEDING TUBE DAILY #90 tab 01/27/21 03/28/21 Rx buspirone 10 mg tablet 10 mg PO BID #60 tab 02/03/21 03/28/21 Rx Oxygen Home ea 02/06/21 History guaifenesin 100 mg/5 mL oral 200 mg PO BID PRN ml 02/06/21 03/28/21 History liquid (Mucinex Fast-Max Chest Congestion) ferrous sulfate 220 mg (44 mg 220 mg FEEDING TUBE DAILY 03/28/21 03/28/21 History iron)/5 mL oral elixir hydromorphone 1 mg/mL oral liquid 3 mg FEEDING TUBE Q4H PRN 03/28/21 03/28/21 History hyoscyamine sulfate 0.125 mg tablet 0.125 mg SUBLINGUAL DAILY PRN 03/28/21 03/28/21 History morphine concentrate 100 mg/5 mL 5 mg SUBLINGUAL Q2H PRN 03/28/21 03/28/21 History (20 mg/mL) oral solution oxycodone 5 mg/5 mL oral solution 10 mg PO .Q4-6H PRN 03/28/21 03/28/21 History potassium chloride 10 mEq 10 meq PO DAILY 03/28/21 03/28/21 History tablet,extended release prednisone 10 mg tablet 10 mg FEEDING TUBE DAILY 03/28/21 03/28/21 History prednisone 5 mg tablet 5 mg FEEDING TUBE DAILY 03/28/21 03/28/21 History Past Med/Surg History Medical History Anxiety Cancer of supraglottis "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 Radiation completed 02/28/2010 received 7200 cGy Finding of asymmetry of larynx on the right. 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 Radiation completed 02/28/2010 received 7200 cGy Finding of asymmetry of larynx on the right. Plan for laryngoscopy and biopsy 01/27/2017 " Cervical stenosis of spinal canal Chronic hypoxemic respiratory failure Chronic low back pain "[facility]" COPD (chronic obstructive pulmonary disease) "is on home oxygen" GIB (gastrointestinal bleeding) Hypothyroidism Insomnia Lung cancer (10/04/17) Lung nodules Mass of lower lobe of left lung Oxygen dependent Presence of externally removable percutaneous endoscopic gastrostomy (PEG) tube (~2019) Radiation fibrosis of lung Surgical History H/O cervical spine surgery H/O neck surgery right side Percutaneous endoscopic gastrostomy status S/P lobectomy of lung Family History Other No pertinent family history Denies family history of Ovarian cancer Prostate cancer Breast cancer Lung cancer Colorectal cancer Social History Smoking Status: Never smoker Tobacco Type: Cigarettes Second Hand Exposure: No; Do You Dip or Chew Tobacco: No; Hx Alcohol Use: No Hx Substance Use: No Preferred Language: Berm[place]ian Communication Ability: Effective Visual Impairment: No Limitations Hearing Ability: Normal Scrap Collector Required: No Beliefs That Will Affect Care: None marital status: Single Current Living Situation: Significant Other current occupational status: retired Feels Safe at Home: Yes Safety Concerns: Feels Safe At This Time caffeine: No Dental Care, Regularly: Yes Physical Activity Frequency: Does not Exercise Seatbelt Use: always Sunscreen Use: Yes Assistive Devices: Glasses, Oxygen - Continuous and Walker Physical Exam Constitutional: WD/WN, vitals as above Respiratory: normal respiratory effort, lungs clear to auscultation Cardiovascular: RRR, no murmur, no edema Gastrointestinal (Abdomen): normal bowel sounds, soft, nontender, no hepatosplenomegaly Results & Data ([facility]) Vital Signs (Past 12 Hours) Vital Signs Temp Pulse Resp BP Pulse Ox 03/31/21 08:44 36.3 C L 111 H 20 158/83 H 96 03/31/21 07:24 107 H 16 97 03/31/21 06:59 36.9 C 109 H 20 147/84 H 96 03/30/21 22:26 110 H 18 92 03/30/21 22:07 36.8 C 108 H 20 128/73 93 Code Status & VTE Plan VTE Prophylaxis Plan VTE Prophylaxis will be ordered: Yes
[2021-03-31] MEDS ORDERED: PROPOFOL IV EMULSION 10 MG/ML 20 ML VIAL IV ONE (09:09)
[2021-03-31] MEDS ORDERED: LIDOCAINE 2% 2 ML VIAL/AMP(20MG/ML) INFIL ONE (09:09)
[2021-03-31] MEDS ORDERED: ONDANSETRON INJ 2 MG/ML 2 ML VIAL ONE (09:09)
--- NOTE | 2021-03-31 09:29 | Electrocardiogram Report ---
Test Reason : Blood Pressure : / mmHG Vent. Rate : 108 BPM Atrial Rate : 108 BPM P-R Int : 156 ms QRS Dur : 084 ms QT Int : 344 ms P-R-T Axes : 024 -16 040 degrees QTc Int : 460 ms Sinus tachycardia Otherwise normal ECG When compared with ECG of 29-MAR-2021 12:23, (unconfirmed) No significant change was found Confirmed by Caio Ibarra ([id number]) on 03/31/2021 9:29:42 AM Referred By: REFERRED SELF Confirmed By:Caio Ibarra
--- NOTE | 2021-03-31 09:29 | Electrocardiogram Report ---
Test Reason : Blood Pressure : / mmHG Vent. Rate : 116 BPM Atrial Rate : 116 BPM P-R Int : 152 ms QRS Dur : 092 ms QT Int : 324 ms P-R-T Axes : 067 -24 028 degrees QTc Int : 450 ms Sinus tachycardia Otherwise normal ECG When compared with ECG of 18-SEP-2020 10:35, Left anterior fascicular block is no longer Present Incomplete right bundle branch block is no longer Present Confirmed by Caio Ibarra ([id number]) on 03/31/2021 9:29:06 AM Referred By: REFERRED SELF Confirmed By:Caio Ibarra
[2021-03-31 09:42] LABS: Ferritin 7.8 ng/ml (8-388)
--- NOTE | 2021-03-31 09:42 | GI REPORT ---
Patient Name: Luis Boss Procedure Date: 03/31/2021 8:49 AM Date of : 1950 Admit Type: Inpatient Age: 71 Gender: Male Attending MD: Gemini Driscoll DO Procedure: Upper GI endoscopy Providers: Gemini Driscoll DO Referring MD: Sterling Tan Indications: Dysphagia, Replace PEG tube due to malfunctioning gastrostomy tube Medicines: Propofol per Anesthesia Complications: No immediate complications. Estimated blood loss: None. Estimated Blood Loss: Estimated blood loss: none. Procedure: Pre-Anesthesia Assessment: - Prior to the procedure, a History and Physical was performed, and patient medications, allergies and sensitivities were reviewed. The patient's tolerance of previous anesthesia was reviewed. - The risks and benefits of the procedure and the sedation options and risks were discussed with the patient. All questions were answered and informed consent was obtained. - Patient identification and proposed procedure were verified prior to the procedure by the physician and the nurse. The procedure was verified in the pre-procedure area in the procedure room. - Mental Status Examination: alert and oriented. Airway Examination: normal oropharyngeal airway and neck mobility. Respiratory Examination: clear to auscultation. CV Examination: normal. Abdominal Examination: bowel sounds present, abdomen soft and non-tender, no masses or organomegaly noted. - ASA Grade Assessment: III - A patient with severe systemic disease. After obtaining informed consent, the endoscope was passed under direct vision. Throughout the procedure, the patient's blood pressure, pulse, and oxygen saturations were monitored continuously. The Endoscope was introduced through the mouth, with the intention of advancing to the duodenum. The scope was advanced to the cricopharyngeal esophagus before the procedure was aborted. Medications were given. The upper GI endoscopy was accomplished without difficulty. The patient tolerated the procedure well. Findings: One benign-appearing, intrinsic severe stenosis was found at the cricopharyngeus. The stenosis was not traversed. Impression: - Benign-appearing esophageal stenosis at the cricopharyngeus - Balloon replacement PEG placed. - No specimens collected. Recommendation: - Endoscopically placed PEG with bumper was removed after EGD aborted. 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 Unable to advance scope. A 20Fr 3.5 balloon replacement tube was placed in the procedure room. - KUB with gastrograffin through the tube to be done. Order placed. - OK to use the PEG for meds and feeding today pending xray. - [facility]. Gemini Driscoll D.O. Gemini Driscoll DO 03/31/2021 9:42:23 AM This report has been signed electronically. Note Initiated On: 03/31/2021 8:49 AM Number of Addenda: 0 I attest to the content of the Intraoperative Record and orders documented therein, exceptions below {[id number]}
--- NOTE | 2021-03-31 09:48 | Hospitalist Progress Note ---
Date of Service March 31, 2021 Assessment & Plan (1) PEG tube malfunction: Plan: - Continue routine PEG management - Can continue his home feeds and 60 mL free water flushes; Dietetics consulted for orders and management - Can swallow liquids and can drink for comfort - will have to be NPO for Wednesday - Will order CXR, PT/INR/PTT, and EKG for pre-operative - GI consultation - planning on PEG change on Wednesday (2) COPD (chronic obstructive pulmonary disease): Plan: - Chronic/Stable. Adequate oxygenation on nasal cannula. - Continue duo nebs and albuterol as needed; Continue Symbicort and Spiriva (interchange inhalers per formulary) - Continue azithromycin q. Wednesday - Continue prednisone daily (3) Anxiety: Plan: - Chronic/Stable. Continue BuSpar 10 mg twice daily; will add Ativan 0.5 mg IV PRN which may help with the HRs as well as he reports increased stress/anxiety (4) Unspecified essential hypertension: Plan: - Chronic. Elevated blood pressure Continue Cozaar 25 mg daily; can use Hydralazine sparingly - may be related to his underlying condition, anxiety, pain Continue to monitor (5) Hypothyroidism: Plan: - Chronic/Stable. Continue Synthroid 137 mcg p.o. daily (6) Chronic pain: Plan: - Patient with longstanding history of chronic pain. Is on large amount of opiates Continue oxycodone Continue fentanyl patch - reports patch was placed on 27 March - changed order to allow for new patch placement today Continue gabapentin Plan: DVT ProphylaxisLovenox 40 mg daily - will hold now in anticipation of Wednesday's procedure Disposition: - Await PEG tube placement on Wednesday and GI recommendations Admission and Anticipated Discharge Date Admission Date: March 28, 2021 Results & Data Results & Data ([facility]) Vital Signs (Past 12 Hours) Vital Signs Temp Pulse Resp BP Pulse Ox 03/31/21 08:44 36.3 C L 111 H 20 158/83 H 96 03/31/21 07:24 107 H 16 97 03/31/21 06:59 36.9 C 109 H 20 147/84 H 96 03/30/21 22:26 110 H 18 92 03/30/21 22:07 36.8 C 108 H 20 128/73 93 Laboratory Results 03/31/21 03/31/21 03/31/21 Range/Units 09:04 06:30 06:30 WBC 6.05 (4.8-10.8) K/uL RBC 3.80 L (4.7-6.1) M/uL Hgb 8.5 L (14.0-18.0) g/dL Hct 29.3 L (42-52) % MCV 77.1 L (80-100) fL MCH 22.4 L (25-34) pg MCHC 29.0 L (32-36) g/dL RDW Std Deviation 54.7 H (36.4-46.3) fL RDW Coeff of Stephanie 19.3 H (11.5-14.5) % Plt Count 367 (130-400) K/uL MPV 9.0 (7.4-10.4) fL PT (9.0-12.0) Seconds INR (0.9-1.1) APTT (21.0-31.0) Seconds PTT Ratio Sodium 140 (136-145) mmol/L Potassium 3.7 (3.5-5.1) mmol/L Chloride 102 (98-107) mmol/L Carbon Dioxide 32 (21-32) mmol/L Anion Gap 6.0 (3-11) BUN 18 (7-18) mg/dl Creatinine 0.58 L (0.6-1.4) mg/dl Est Cr Clr Drug Dosing 140.0 ml/min Est GFR ( Amer) 120.6 ml/min Est GFR (Non-Af Amer) 104.0 ml/min BUN/Creatinine Ratio 31.3 H (10-20) Glucose 105 H (70-99) mg/dl Calcium 8.9 (8.5-10.1) mg/dl Iron 20 L (35-175) mcg/dl TIBC 412 (250-450) mcg/dl Transferrin 327 (200-360) mg/dl Transferrin % Sat 4 L (20-50) % Ferritin 7.8 L (8-388) ng/ml 03/31/21 Range/Units 06:30 WBC (4.8-10.8) K/uL RBC (4.7-6.1) M/uL Hgb (14.0-18.0) g/dL Hct (42-52) % MCV (80-100) fL MCH (25-34) pg MCHC (32-36) g/dL RDW Std Deviation (36.4-46.3) fL RDW Coeff of Stephanie (11.5-14.5) % Plt Count (130-400) K/uL MPV (7.4-10.4) fL PT 9.9 (9.0-12.0) Seconds INR 1.0 (0.9-1.1) APTT 23.9 (21.0-31.0) Seconds PTT Ratio 0.9 Sodium (136-145) mmol/L Potassium (3.5-5.1) mmol/L Chloride (98-107) mmol/L Carbon Dioxide (21-32) mmol/L Anion Gap (3-11) BUN (7-18) mg/dl Creatinine (0.6-1.4) mg/dl Est Cr Clr Drug Dosing ml/min Est GFR ( Amer) ml/min Est GFR (Non-Af Amer) ml/min BUN/Creatinine Ratio (10-20) Glucose (70-99) mg/dl Calcium (8.5-10.1) mg/dl Iron (35-175) mcg/dl TIBC (250-450) mcg/dl Transferrin (200-360) mg/dl Transferrin % Sat (20-50) % Ferritin (8-388) ng/ml Diagnostic Findings Chest X-Ray 03/30/21 10:13 SINGLE VIEW CHEST CLINICAL HISTORY: COPD. Preoperative examination FINDINGS: An AP, portable, upright chest radiograph is compared to study dated 09/18/2020 and correlated with chest CT dated 12/27/2020. The examination is degraded by portable technique and apical lordotic positioning. The heart is mildly enlarged noting atherosclerotic calcification of the thoracic aorta. Enlargement of the central pulmonary arteries suggests pulmonary artery hypertension. Advanced emphysema and chronic interstitial thickening are similar to previous. Foci of parenchyma scarring are again seen throughout both lungs. Right perihilar and left lower lobe irregular airspace opacities are similar to previous. There is no superimposed airspace process consolidation to suggest pneumonia. No large pleural effusion or pneumothorax is seen. The skeletal structures are osteopenic. The bony thorax is grossly intact. Fusion hardware is noted in the lower cervical spine. IMPRESSION: 1. Cardiomegaly, advanced emphysema, and chronic parenchymal changes/opacities as above. These were better assessed on the 12/27/[address] 2. There is no evidence of superimposed airspace consolidation or large pleural effusion. ACT 112: Negative or not required by law. Electronically signed by: Alex Taylor M.D. 03/30/2021 12:41 PM PG Care Time/CCT Total # of Minutes Spent Total Time Spent with Patient: Total time spent is greater than 50% in coordination of care (as documented) at patient's floor/unit and/or counseling patient: Coding Diagnoses PEG tube malfunction K94.23 COPD (chronic obstructive pulmonary disease) J44.9 COPD type: unspecified COPD Anxiety F41.9 Unspecified essential hypertension I10 Hypothyroidism E03.9 Hypothyroidism type: unspecified Chronic pain G89.29 (1) Hypothyroidism Hypothyroidism type: unspecified Qualified Code(s): E03.9 - Hypothyroidism, unspecified (2) COPD (chronic obstructive pulmonary disease) COPD type: unspecified COPD Qualified Code(s): J44.9 - Chronic obstructive pulmonary disease, unspecified
--- NOTE | 2021-03-31 10:01 | Anesthesiology Progress Note ---
Date of Service March 31, 2021 Anesthesia Post Procedure Vital Signs Vital Signs: Temp Pulse Resp BP Pulse Ox 03/31/21 09:53 111 H 20 110/77 93 03/31/21 09:38 36.3 C L 110 H 20 111/62 95 03/31/21 08:44 36.3 C L 111 H 20 158/83 H 96 03/31/21 07:24 107 H 16 97 03/31/21 06:59 36.9 C 109 H 20 147/84 H 96 03/30/21 22:26 110 H 18 92 03/30/21 22:07 36.8 C 108 H 20 128/73 93 03/30/21 19:27 109 H 18 94 03/30/21 15:59 37.0 C 117 H 18 136/65 91 03/30/21 14:52 114 H 18 92 03/30/21 11:55 108 H 22 91 Pain Intensity Abdomen: Pain Intensity: 8 Generalized: Pain Intensity: 5 Transfer of Care Handoff Completed per policy Notes Mental Status: alert / awake / arousable and participated in evaluation Patient Amnestic to Procedure: Yes Nausea / Vomiting: adequately controlled Pain: adequately controlled Airway Patency, RR, SpO2: stable & adequate BP & HR: stable & adequate Hydration State: stable & adequate Anesthetic Complications: no major complications apparent and Pt Satisfied with anesthetic care
[2021-03-31] MEDS: LOSARTAN POTASSIUM 25 MG TAB GT SCH (10:53)
[2021-03-31] MEDS: predniSONE 5 MG TAB GT SCH (10:53)
[2021-03-31] MEDS: predniSONE 10 MG TABLET GT SCH (10:53)
[2021-03-31] MEDS: busPIRone 5 MG TAB GT SCH (10:54)
[2021-03-31] MEDS: FLUTICASONE/VILANTEROL 200/25MCG 14 PUFFS/INHALER INH SCH (10:54)
[2021-03-31] MEDS: UMECLIDINIUM BROMIDE 62.5MCG/BLISTER 7 PUFFS/INHALER INH SCH (10:54)
[2021-03-31] MEDS: FERROUS SULFATE ELIX 220MG/5ML PEG SCH (10:54)
[2021-03-31] MEDS: GABAPENTIN 250 MG/5 ML 470 ML BTL GT SCH ×2 (10:58→14:31)
[2021-03-31] MEDS: ACETAMINOPHEN SUSP 325 MG/10.15 ML UDC PEG PRN (12:27)
--- NOTE | 2021-03-31 12:43 | XRay Report ---
KUB CLINICAL HISTORY: Gastrografin tube check. Gastrostomy tube. FINDINGS: 2 AP supine abdominal radiographs are compared to study dated 01/30/2020. Correlation is mad e with abdominal CT dated 01/09/2020. There is a nonobstructed abdominal bowel gas pattern. On the init ial image the gastrostomy tube projects over the left upper quadrant. Approximately 50 cc of Gastrovi ew was then injected into the PEG tube. This opacifies the distal stomach and proximal duodenum. No e xtraluminal contrast is identified. Moderate fecal retention is noted throughout the colon. No eviden ce of intraperitoneal free air is seen on these supine images. Vascular calcifications are noted thro ughout the abdomen. The skeletal structures are osteopenic and appear intact. There is advanced lumbo sacral spondylosis. A masslike opacity is again seen at the left lung base. IMPRESSION: 1. A gastrostomy tube is in place and appears appropriately positioned. No extraluminal contrast is i dentified. 2. No bowel obstruction. 3. A masslike opacity is again seen at the left lung base. Electronically signed by: Alex Taylor M.D. 03/31/2021 12:42 PM
--- NOTE | 2021-03-31 12:56 | Discharge Summary ---
Date of Service March 31, 2021 Admission HPI Per Admitting Provider Chief Complaint: PEG tube malfunction Primary Care Provider: Chapito Milner DO Luis Boss is a 70-year-old male history of COPD, anxiety, hypothyroid, lung cancer, PEG tube in place presenting with PEG tube malfunction. Patient states that his PEG tube began malfunctioning approximately 2 weeks ago and became more dysfunctional over the last 2-3 days. Patient's significant other was assisting him with feeds and medications however, unfortunately she was recently admitted to [facility] for stroke. Patient was scheduled to see GI outpatient yesterday but missed the appointment due to to his girlfriend's illness. He comes to the ER today for PEG tube replacement. Patient was evaluated by GI in the ER and will need to have his PEG tube placed endoscopically on Wednesday. Patient with no additional complaints at this time. He denies fever/chills, chest pain, palpitations, abdominal pain, nausea, vomiting, diarrhea, constipation Admission Exam Per Admitting Provider General: patient resting comfortably, NAD, non-toxic in appearance, AA&O x 4 Skin: warm, dry, intact, no rashes or lesions HEENT: NC/AT, PERRL, EOMI, anicteric sclera, conjunctiva without injection, external ear normal to inspection and nontender, nares patent, moist mucus membranes, dentition intact, no oropharyngeal lesions, neck supple, trachea midl ine, no LAD, no thyromegaly, no JVD Heart: +S1/S2, regular, no m/r/g Lungs: equal air entry bilaterally, no rales/rhonchi/wheezes Abd: +BS, soft, NT/ND, no masses/organomegaly/ascites Ext: warm, 2+ pulses in UE/LE bilaterally, no clubbing/cyanosis or edema Neuro: nonfocal, patient AA&O x 4, speech intact, no facial droop, moving all extremities on command with equal strength 5/5 Principal Diagnosis PEG Tube Replacement Discharge Exam General Appearance: chronically ill appearing in NAD who is A&O x 3 HEENT: Head is normocephalic/atraumatic; Hearing grossly intact Neck: Supple; Trachea midline; Neg JVD Heart: Reg rhythm; tachy with no M/G/R Lungs: Diffuse exp wheeze but good air flow and absent in RLL; Respirations unlabored; Neg accessory muscle use. on 4L NC Abdomen: Soft, non-tender, non-distended; Positive BS x 4 quadrants; NEW PEG L abdomen, dressing c/d/i Extremities: Neg cyanosis or edema Neurological: Speech clear; Gross motor/sensory function intact; Neg focal neurologic deficits Psychiatric: Appropriate mood/affect Skin: Normal Color; Warm/Dry Discharge Data Allergies Allergy/AdvReac Type Severity Reaction Status Date / Time NSAIDS (Non-Steroidal AdvReac Mild upset Verified 03/31/21 08:41 Anti-Inflamma stomach Consultations 03/28/21 20:14 Consult Gastroenterology Routine Procedures Performed Operation Date: 03/31/21 16:00 Actual Procedures p EGD Gastric Tube Placement - Gemini Driscoll, DO Ordered Studies 03/28/21 18:16 US venous doppler LE RT Routine Hospital Course (1) PEG tube malfunction: Patient initially seen by GI on 03/28 recommendations for PEG exchange the following Wednesday however patient significant other ended up being hospitalized and patient preferred hospitalization while awaiting PEG tube placement as he was not safe at home by himself GI was consulted Status post PEG tube placement by Dr. Driscoll on 03/31 --will need follow-up in office in 4 months for exchange To continue his usual feeding regimen at home Of note, patient with history of lung cancer which has progressed and was arranged for hospice at discharge pain medication sent. Does follow with Dr. Oreilly from heme-onc, and while inpatient with low hemoglobin (denied hematochezia/melena/hematuria) --> we repeated iron stores prior to discharge which revealed iron of 20 with ferritin 7.8 and transferrin sat 4%. --> Was given a dose of Venofer before discharge and he is to continue his daily supplementation via his PEG tube. Did discuss about following up with oncology for better for transfusions in the future to replete his stores (2) Iron deficiency anemia: hx of and received Venofer in past, unknown source identified, however likely 2nd to recurrence of lung ca with metastasis to be on daily supplementation at home Hgb 8.5 with microcytic anemia and iron stores checked this morning --> low at 20 with trans % sat 4. Given dose IV Venofer, however patient would like to go home and discussed continuing supplementation at discharge but may benefit from f/u with heme-onc for transfusions in future as above (3) COPD (chronic obstructive pulmonary disease): - Chronic/Stable. Adequate oxygenation on nasal cannula but of note he had required increased oxygen supplementation up to 4 L over the past several months, this is likely due to iron deficiency anemia and did receive a dose of Venofer while inpatient and instructed to continue his daily supplementation with follow-up with heme-onc as outlined above Continued on his DuoNebs and albuterol as needed as well as Symbicort and Spiriva which was interchanged for hospital formulary while inpatient Continue azithromycin Wednesday as well as daily prednisone Stable on his usual 4 L however do suspect that with replacement of his iron he may be back down to his usual 3L (4) Anxiety: Chronic/Stable. Continued BuSpar 10 mg twice daily Elevated heart rate which is chronic patient and review of records could also be worsened by his anemia as above (5) Unspecified essential hypertension: Chronic. Continued Cozaar 25 mg daily (6) Hypothyroidism: Chronic/Stable. Continued Synthroid 137 mcg p.o. daily (7) Chronic pain: Patient with longstanding history of chronic pain. Is on large amount of opiates Continued oxycodone Continued fentanyl patch - reports patch was placed on 27 March - changed order to allow for new patch placement today Continued gabapentin DVT ProphylaxisLovenox 40 mg daily while inpatient Total Time Total Time Spent Total Time Spent (In Minutes): 60 Discharge Plan Discharge Items Patient Disposition: Hospice - Home Reason For Visit: PEG TUBE REPLACEMENT Discharge Diagnosis: PEG Tube Placement Goals: You have been hospitalized for an urgent problem which required surgery. During your stay at [facility], we have made an effort to correct the problem that brought you to the hospital while keeping you as comfortable as possible. Surgery and medications were used to bring your condition under control and your discharge instructions will include directions for any medications you should take after leaving the hospital. Please make sure to follow the advice of your surgeon regarding follow up with the surgeon and with your primary care provider. Activity: Resume your previous activity Non-emergency contact: Primary Care Provider and Oncologist Call non-emergency contact if: you have any medication questions, your symptoms worsen and your pain is worsening Follow-up/Referrals: Joe Oreilly DO [Physician] - 04/24/21 10:30 am Chapito Milner DO [Primary Care Provider] - 04/03/21 10:30 am (Please call the [place] for insurnace authorization PRIOR TO THIS APPT) Gemini Driscoll, [Physician] - (4 months) Diet: Heart Healthy Addtl Attending Provider Instructions: You have been hospitalized for PEG tube replacement. GI was consulted and they needed to actually place a new PEG tube due to issue with previous tube. You can resume your usual feeding at home this evening and follow up with GI routine for follow-up. They will need to see you in 4 months in office for tube exchange. As discussed, given your increased oxygen needs over the past several months and previous iron deficiency, your iron was checked and was low. You were ordered IV iron replacement and should continue daily supplementation. It may not be a bad idea to follow up with Dr. Oreilly to discuss about getting further transfusions to top your stores off, as discussed. This should help with shortness of breath, elevated heart rate as well. You should follow up with your PCP in the next week to monitor your progress post-hospitalization. You should return to the emergency department with any issues with the PEG tube, fever, chills, chest pain, increased shortness of breath, or for any other symptoms that are concerning for you. We are working on getting you set up with a different Hospice agency at discharge to help with chronic pain and medication management. It has been a pleasure being a part of the medical team providing for you while you have been in the hospital. Take care! Pending Studies at Discharge: No Stand-Alone Forms: My [facility], Opioid Pain Management Medications and DC Order Prescriptions: Continued Benefiber Sugar Free (dextrin) 3 gram/3.8 gram powder 1.5 gm PO DAILY PRN (Reason: constipation) RF: 0 loperamide [Imodium A-D] 1 mg/7.5 mL liquid 2 mg feeding tube Q4H PRN (Reason: Diarrhea) RF: 0 mirtazapine 45 mg tablet 45 mg feeding tube HS Qty: 90 RF: 3 losartan 25 mg tablet 25 mg feeding tube DAILY Qty: 90 RF: 3 buspirone 10 mg tablet 10 mg PO BID Qty: 60 RF: 2 levothyroxine 137 mcg capsule 137 mcg feeding tube DAILY RF: 0 (DME) Oxygen Home Liters Per Minute See Rx Instructions .ROUTE .MEDSUPPLY RF: 0 guaifenesin [Mucinex Fast-Max Chest-Congest] 100 mg/5 mL liquid 200 mg PO BID PRN (Reason: Mucus Buildup) RF: 0 fentanyl 12 mcg/hr patch 72 hour 1 patch transdermal Q72H Qty: 1 RF: 0 azithromycin [Zithromax] 250 mg tablet 500 mg feeding tube MOWEFR RF: 0 ipratropium-albuterol 0.5 mg-3 mg(2.5 mg base)/3 mL solution for nebulization 3 ml INHALATION Q4H PRN (Reason: Shortness Of Breath) RF: 0 fentanyl 25 mcg/hr patch 72 hour 1 patch TRANSDERMAL Q72H RF: 0 Nutren 2.0 0.08 gram-2 kcal/mL liquid 2 ea Feeding Tube BID RF: 0 loratadine 10 mg tablet 10 mg Feeding Tube DAILY PRN (Reason: Allergic Reaction) RF: 0 gabapentin 300 mg capsule 300 mg Feeding Tube TID RF: 0 morphine concentrate 100 mg/5 mL (20 mg/mL) solution 5 mg sublingual Q2H PRN (Reason: Severe Pain (Scale Score 7-10)) RF: 0 potassium chloride 10 mEq tablet extended release 10 meq PO DAILY RF: 0 hyoscyamine sulfate 0.125 mg tablet 0.125 mg sublingual DAILY PRN (Reason: Terminal Secretions) RF: 0 hydromorphone 1 mg/mL liquid 3 mg feeding tube Q4H PRN (Reason: Pain) RF: 0 prednisone 10 mg tablet 10 mg feeding tube DAILY RF: 0 prednisone 5 mg tablet 5 mg feeding tube DAILY RF: 0 ferrous sulfate 220 mg (44 mg iron)/5 mL elixir 220 mg feeding tube DAILY RF: 0 Changed oxycodone 5 mg/5 mL solution 10 mg PO .Q4-6H PRN (Reason: pain) Qty: 200 RF: 0 Discharge Orders: Discharge Order (Routine); Ordered 03/31/21 Ordered By: Sana Wilde/Other Patient Handouts: Understanding PEG Tube Feeding Admission Data Admit Date/Time: 03/28/21 18:16 Attending Provider: Sterling Tan Admit Provider: Amanda Masters Primary Care Provider: Chapito Milner Other Providers: Tayler Aparicio ; [facility] Other Interventions: Discharge Summary Assessment (RN) Last Done: 03/31/21 10:17 Coding Level of Care Code D/C DAY MANAGEMENT >30 MINS Diagnoses PEG tube malfunction K94.23 COPD (chronic obstructive pulmonary disease) J44.9 COPD type: unspecified COPD Anxiety F41.9 Unspecified essential hypertension I10 Hypothyroidism E03.9 Hypothyroidism type: unspecified Chronic pain G89.29 Iron deficiency anemia D50.9
[2021-03-31] MEDS ORDERED: IRON SUCROSE 300 MG in SODIUM CHLORIDE 0.9% 250 ML IV ONE (14:00)
[2021-03-31 14:15] VITALS: TEMP 98.4
[2021-03-31 15:46] VITALS: BP 120/81; PULSE 112; O2SAT 95
== END 2021-03-31 18:17 | disposition hospice, home (50) | DRG 394 ==
LOC: ED 13:28 → 3W 18:16 → SUATTDRO 18:16 → 3W 19:54
DX: Z92.3 Personal history of irradiation; K94.23 Gastrostomy malfunction; J44.9 Chronic obstructive pulmonary disease, unspecified; K22.2 Esophageal obstruction; E03.9 Hypothyroidism, unspecified; G89.29 Other chronic pain; Y92.009 Unspecified place in unspecified non-institutional (private) residence as the place of occurrence of the external cause; C34.90 Malignant neoplasm of unspecified part of unspecified bronchus or lung; D50.9 Iron deficiency anemia, unspecified; Z51.5 Encounter for palliative care; C32.9 Malignant neoplasm of larynx, unspecified; J96.10 Chronic respiratory failure, unspecified whether with hypoxia or hypercapnia; F41.9 Anxiety disorder, unspecified; Z88.6 Allergy status to analgesic agent; I10 Essential (primary) hypertension

== ENCOUNTER 2021-07-06 18:17 | Inpatient (IN) ==
[2021-07-06] MEDS ORDERED: FUROSEMIDE 40 MG/4 ML VIAL IV STA (18:26)
[2021-07-06] MEDS ORDERED: methylPREDNISolone 125 MG/2 ML VIAL IV STA (18:26)
[2021-07-06 18:37] LABS: Hematocrit (blood only) 35.6 % (42-52); Hemoglobin 10.4 g/dL (14.0-18.0); Mean Corpuscular Hemoglobin 25.5 pg (25-34); Mean Corpuscular Hgb Conc 29.2 g/dL (32-36); Mean Corpuscular Volume 87.3 fL (80-100); Mean Platelet Volume 9.7 fL (7.4-10.4); Platelet Count 561 K/uL (130-400); RDW Coefficient of Variation 19.2 % (11.5-14.5); RDW Standard Deviation 61.9 fL (36.4-46.3); Red Blood Count 4.08 M/uL (4.7-6.1); White Blood Count 23.96 K/uL (4.8-10.8)
--- NOTE | 2021-07-06 18:42 | Emergency Department Note ---
History of Present Illness General Chief complaint: Shortness of Breath/Dyspnea Stated complaint: Respiratory distress Time Seen by Provider: 07/06/21 18:20 Source: patient and EMS Mode of arrival: EMS Limitations: clinical acuity History of Present Illness Provider complaint: Shortness of breath Onset (ago): day(s) Location: chest Severity: severe Pain Consistency: + constant Quality: + other (Shortness of breath) Relieved By: + none Associated symptoms: + cough (Mild) and + shortness of breath; no chest pain, no fever/chills or no nausea/vomiting This is a 71-year-old male with a history of lung cancer and COPD presenting with shortness of breath starting this morning. He states that he has been short of breath all day. He is dependent on oxygen. His breathing got worse tonight and so they called the ambulance. He denies any associated chest pain. He has been on BiPAP in the ambulance and his O2 saturations did not go above 84%. He has had no fever but states that he has had a mild cough. He denies any loss of taste or smell or diarrhea. He has been fully vaccinated for COVID- 19 although has not had a booster yet. He is also vaccinated for influenza. He denies any chest pain, abdominal pain, vomiting or diarrhea. He does complain of leg swelling but states that it is chronic for him and unchanged. He denies any history of heart failure. He does state that he currently takes prednisone. Home Medications Medication Instructions Recorded Confirmed Type wheat dextrin 3 gram/3.8 gram oral 1.5 gm PO DAILY PRN gm 02/15/19 07/06/21 History powder (Benefiber Sugar Free (dextrin)) levothyroxine 137 mcg capsule 137 mcg FEEDING TUBE DAILY 05/19/19 07/06/21 History ipratropium 0.5 mg-albuterol 3 mg 3 ml INHALATION Q4H PRN ml 01/15/20 07/06/21 History (2.5 mg base)/3 mL nebulization soln nutritional supplements 0.08 2 ea FEEDING TUBE BID 03/27/20 07/06/21 History gram-2 kcal/mL liquid for tube feed (Nutren 2.0) loratadine 10 mg tablet 10 mg FEEDING TUBE DAILY PRN 05/28/20 07/06/21 History gabapentin 300 mg capsule 300 mg FEEDING TUBE TID cap 11/21/20 07/06/21 History mirtazapine 45 mg tablet 45 mg FEEDING TUBE HS #90 tab 11/28/20 07/06/21 Rx losartan 25 mg tablet 25 mg FEEDING TUBE DAILY #90 tab 01/27/21 07/06/21 Rx buspirone 10 mg tablet 10 mg PO BID #60 tab 02/03/21 07/06/21 Rx Oxygen Home ea 02/06/21 06/18/21 History potassium chloride 10 mEq 10 meq PO DAILY 03/28/21 07/06/21 History tablet,extended release prednisone 10 mg tablet 10 mg FEEDING TUBE DAILY 03/28/21 07/06/21 History prednisone 5 mg tablet 5 mg FEEDING TUBE DAILY 03/28/21 07/06/21 History oxycodone 5 mg/5 mL oral solution 10 mg PO .Q4-6H PRN #200 ml 03/31/21 07/06/21 Rx Mucinex Fast-Max Aozb-Aly-Ffrggm 15 ml FEEDING TUBE DAILY #473 ml NS 06/12/21 07/06/21 Rx 10 mg-20 mg-650 mg/20 mL oral liquid (iajfavrsb-DC-tnojpptf-guaifen) guaifenesin 100 mg/5 mL oral 200 mg PO BID #473 ml 06/12/21 07/06/21 Rx liquid (Mucinex Fast-Max Chest Congestion) lorazepam 1 mg tablet 1 mg PO BID PRN 06/18/21 07/06/21 History ferrous sulfate 220 mg (44 mg 220 mg FEEDING TUBE DAILY #473 ml 06/25/21 07/06/21 Rx iron)/5 mL oral elixir fentanyl 50 mcg/hr transdermal 50 mcg TRANSDERMAL Q3D 07/06/21 07/06/21 History patch Allergies Allergy/AdvReac Type Severity Reaction Status Date / Time NSAIDS (Non-Steroidal AdvReac Mild upset Verified 07/06/21 18:44 Anti-Inflamma stomach Past Med/Surg History Medical History Anxiety Cancer of supraglottis "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 Radiation completed 02/28/2010 received 7200 cGy Finding of asymmetry of larynx on the right. 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 Radiation completed 02/28/2010 received 7200 cGy Finding of asymmetry of larynx on the right. Plan for laryngoscopy and biopsy 01/27/2017 " Cervical stenosis of spinal canal Chronic hypoxemic respiratory failure Chronic low back pain [facility]" COPD (chronic obstructive pulmonary disease) "is on home oxygen" GIB (gastrointestinal bleeding) Hypothyroidism Insomnia Lung cancer (10/04/17) Lung nodules Mass of lower lobe of left lung Oxygen dependent Presence of externally removable percutaneous endoscopic gastrostomy (PEG) tube (~2018) Radiation fibrosis of lung Surgical History H/O cervical spine surgery H/O neck surgery right side Percutaneous endoscopic gastrostomy status S/P lobectomy of lung Family History Other No pertinent family history Denies family history of Ovarian cancer Prostate cancer Breast cancer Lung cancer Colorectal cancer Social History Smoking Status: Former smoker Tobacco Type: Cigarettes Second Hand Exposure: No; Hx Alcohol Use: No Hx Substance Use: No Preferred Language: Kazakh Communication Ability: Effective Visual Impairment: No Limitations Hearing Ability: Normal 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 and A total of 10 systems reviewed and were otherwise negative Physical Exam Vital Signs Vital Signs - 24 hr 07/06/21 18:22 07/06/21 18:27 07/06/21 19:00 Temperature 37.4 C Temperature Source Axillary Pulse Rate 146 H 149 H 138 H Pulse Rate [Apical] Pulse Rate from SpO2 Sensor 139 H Pulse Rhythm Regular Pulse Strength Normal Respiratory Rate 34 H 43 H 32 H Respiratory Effort / Characteristics Spontaneous Labored Spontaneous Labored Respiratory Depth Shallow Respiratory Pattern Tachypnea Tachypnea Blood Pressure 182/118 H Blood Pressure [Left Arm] Blood Pressure Mean 139 Blood Pressure Mean [Left Arm] Blood Pressure Position Sitting Pulse Oximetry 96 88 L 100 Oxygen Delivery Method CPAP BiPAP Fraction of Inspired Oxygen 70 Sepsis Recent Fever Within 48 Hours No Sepsis New/Unexplained Change in Mental Status N/A Sepsis Action Taken by Nursing Physician Notified Fraction of Inspired Oxygen - Titration 70 Pulse Oximetry Post Tiitration 100 07/06/21 19:06 07/06/21 19:30 07/06/21 19:45 Temperature Temperature Source Pulse Rate 140 H 136 H Pulse Rate [Apical] 137 H Pulse Rate from SpO2 Sensor 139 H 137 H Pulse Rhythm Pulse Strength Respiratory Rate 36 H 29 H 24 Respiratory Effort / Characteristics Accessory Muscle Use Short of Breath Spontaneous Labored Short of Breath SOB on Exertion Respiratory Depth Shallow Respiratory Pattern Tachypnea Blood Pressure 99/70 L Blood Pressure [Left Arm] 153/90 H Blood Pressure Mean 79 Blood Pressure Mean [Left Arm] 111 Blood Pressure Position Pulse Oximetry 100 98 95 Oxygen Delivery Method BiPAP BiPAP BiPAP Fraction of Inspired Oxygen 50 Sepsis Recent Fever Within 48 Hours Sepsis New/Unexplained Change in Mental Status Sepsis Action Taken by Nursing Fraction of Inspired Oxygen - Titration Pulse Oximetry Post Tiitration 07/06/21 20:00 Temperature Temperature Source Pulse Rate 132 H Pulse Rate [Apical] Pulse Rate from SpO2 Sensor 133 H Pulse Rhythm Pulse Strength Respiratory Rate 29 H Respiratory Effort / Characteristics Respiratory Depth Respiratory Pattern Blood Pressure 103/71 Blood Pressure [Left Arm] Blood Pressure Mean 81 Blood Pressure Mean [Left Arm] Blood Pressure Position Pulse Oximetry 98 Oxygen Delivery Method BiPAP Fraction of Inspired Oxygen Sepsis Recent Fever Within 48 Hours Sepsis New/Unexplained Change in Mental Status Sepsis Action Taken by Nursing Fraction of Inspired Oxygen - Titration Pulse Oximetry Post Tiitration Constitutional: Vital signs reviewed. The patient is in respiratory distress. Eyes: Pupils are equal round reactive to light. Conjunctiva are noninjected. ENT: Fully bearded. CPAP mask on face which is sliding down. Respiratory: Expiratory wheezing greatest at the left base.. Breath sounds are equal bilaterally. Cardiovascular: Tachycardic. Heart rate 146. Regular rhythm. GI: Soft, nondistended and nontender. Bowel sounds are present. PEG tube. No evidence of drainage or infection. Musculoskeletal: Bilateral pitting edema. No lower extremity tenderness. Integumentary: No cyanosis. or jaundice. Neurological: The patient is awake and alert. No focal deficits. Psychiatric: Anxious. Course Administered Medications Discontinued Medications Furosemide (Furosemide 40 Mg/4 Ml Vial) 40 mg IV NOW STA Stop: 07/06/21 18:27 Last Admin: 07/06/21 18:44 Dose: 40 mg Documented by: [id number] Piperacillin Sod/Tazobactam Sod (Zosyn) 4.5 gm in 120 mls @ 240 mls/hr IV NOW ONE Stop: 07/06/21 19:26 Last Infusion: 07/06/21 19:54 Dose: 0 mls/hr Documented by: [id number] Admin: 07/06/21 19:05 Dose: 240 mls/hr Documented by: [id number] Methylprednisolone (Methylprednisolone 125 Mg/2 Ml Vial) 125 mg IV NOW STA Stop: 07/06/21 18:27 Last Admin: 07/06/21 18:42 Dose: 125 mg Documented by: [id number] Critical Care Time Critical Care Time: Yes Total Critical Care Time: 45 I have personally spent approximately 45 minutes of critical care time in the direct management of this patient. This includes bedside care, interpretation of diagnostic studies, and testing, discussion with consultants, patient, and family members, and other required patient management activities. These minutes are in excess of all separately billable procedures. Medical Decision Making Differential Diagnosis Respiratory failure, hypoxemia, COPD exacerbation, pulmonary edema, COVID-19, pneumonia Medical Records Attestation: I reviewed the patient's medical records. I did perform a limited focused review of portions of the patient's old chart on the electronic medical record. The patient was admitted to the hospital in March of this year for PEG tube replacement. He has a history of COPD and lung cancer and supraglottic cancer. Home Medications Current Medication List: was personally reviewed by me Laboratory Data Attestation: I reviewed the patient's lab results. Result diagrams: 07/06/21 18:20 07/06/21 18:20 Lab Results 07/06/21 07/06/21 07/06/21 Range/Units 18:20 18:20 18:20 WBC 23.96 H (4.8-10.8) K/uL RBC 4.08 L (4.7-6.1) M/uL Hgb 10.4 L (14.0-18.0) g/dL POC Hgb (14.0-18.0) g/dl Hct 35.6 L (42-52) % POC Hct (42-52) % MCV 87.3 (80-100) fL MCH 25.5 (25-34) pg MCHC 29.2 L (32-36) g/dL RDW Std Deviation 61.9 H (36.4-46.3) fL RDW Coeff of Stephanie 19.2 H (11.5-14.5) % Plt Count 561 H (130-400) K/uL MPV 9.7 (7.4-10.4) fL Immature Gran % (Auto) 0.3 % Neut % (Auto) 90.0 % Lymph % (Auto) 3.7 % [place] % (Auto) 5.6 % Eos % (Auto) 0.3 % Baso % (Auto) 0.1 % Neut # (Auto) 21.57 H (1.4-6.5) K/uL Lymph # (Auto) 0.88 L (1.2-3.4) K/uL [place] # (Auto) 1.34 H (0.11-0.59) K/uL Eos # (Auto) 0.08 (0-0.5) K/uL Baso # (Auto) 0.02 (0-0.2) K/uL Immature Gran # (Auto) 0.07 H (0.00-0.02) K/uL Polychromasia 1+ Stomatocytes 1+ PT 10.3 (9.0-12.0) Seconds INR 1.0 (0.9-1.1) APTT 23.0 (21.0-31.0) Seconds PTT Ratio 0.9 POC pH (7.35-7.45) POC pCO2 (35-46) mmHg POC pO2 (80-95) mmHg POC HCO3 (19-24) julio/L POC Total CO2 (24-31) mmol/L POC Base Excess (-9-1.8) julio/L POC ABG O2 Sat (90-95) % POC Sodium (135-144) mmol/L Sodium 135 L (136-145) mmol/L POC Potassium (3.3-5.0) mmol/L Potassium 4.6 (3.5-5.1) mmol/L Chloride 93 L (98-107) mmol/L Carbon Dioxide 34 H (21-32) mmol/L Anion Gap 8.0 (3-11) BUN 24 H (7-18) mg/dl Creatinine 0.79 (0.6-1.4) mg/dl Est Cr Clr Drug Dosing 106.4 ml/min Est GFR ( Amer) 106.2 ml/min Est GFR (Non-Af Amer) 91.6 ml/min BUN/Creatinine Ratio 29.9 H (10-20) Glucose 182 H (70-99) mg/dl Lactate (0.4-2.0) mmol/L Calcium 9.4 (8.5-10.1) mg/dl Magnesium 2.0 (1.8-2.4) mg/dl Total Bilirubin 0.4 (0.2-1) mg/dl AST 32 (15-37) U/L ALT 71 (12-78) U/L Alkaline Phosphatase 88 (45-117) U/L Troponin I 0.018 (0-0.045) ng/ml NT-Pro-B Natriuret Pep 792 (0-900) pg/ml Total Protein 8.1 (6.4-8.2) gm/dl Albumin 2.9 L (3.4-5.0) gm/dl Globulin 5.2 H (2.5-4.0) gm/dl Albumin/Globulin Ratio 0.6 L (0.9-2) Procalcitonin (0-0.5) ng/ml Urine Color Urine Appearance (Clear) Urine pH (4.5-7.5) Ur Specific [place] (1.000-1.030) Urine Protein (Negative) Urine Glucose (UA) (Negative) Urine Ketones (Negative) Urine Blood (Negative) Urine Nitrite (Negative) Urine Bilirubin (Negative) Urine Urobilinogen (Negative) Ur Leukocyte Esterase (Negative) Urine WBC (Auto) (0-5) /hpf Urine RBC (Auto) (0-4) /hpf U Hyaline Cast (Auto) (0-5) /lpf U Epithel Cells (Auto) (0-5) /lpf Urine Bacteria (Auto) (Negative) SARS-CoV-2 (PCR) (Negative) Influ A Molecular Assay (Negative) Influ B Molecular Assay (Negative) 07/06/21 07/06/21 07/06/21 Range/Units 18:20 18:44 18:44 WBC (4.8-10.8) K/uL RBC (4.7-6.1) M/uL Hgb (14.0-18.0) g/dL POC Hgb (14.0-18.0) g/dl Hct (42-52) % POC Hct (42-52) % MCV (80-100) fL MCH (25-34) pg MCHC (32-36) g/dL RDW Std Deviation (36.4-46.3) fL RDW Coeff of Stephanie (11.5-14.5) % Plt Count (130-400) K/uL MPV (7.4-10.4) fL Immature Gran % (Auto) % Neut % (Auto) % Lymph % (Auto) % [place] % (Auto) % Eos % (Auto) % Baso % (Auto) % Neut # (Auto) (1.4-6.5) K/uL Lymph # (Auto) (1.2-3.4) K/uL [place] # (Auto) (0.11-0.59) K/uL Eos # (Auto) (0-0.5) K/uL Baso # (Auto) (0-0.2) K/uL Immature Gran # (Auto) (0.00-0.02) K/uL Polychromasia Stomatocytes PT (9.0-12.0) Seconds INR (0.9-1.1) APTT (21.0-31.0) Seconds PTT Ratio POC pH (7.35-7.45) POC pCO2 (35-46) mmHg POC pO2 (80-95) mmHg POC HCO3 (19-24) julio/L POC Total CO2 (24-31) mmol/L POC Base Excess (-9-1.8) julio/L POC ABG O2 Sat (90-95) % POC Sodium (135-144) mmol/L Sodium (136-145) mmol/L POC Potassium (3.3-5.0) mmol/L Potassium (3.5-5.1) mmol/L Chloride (98-107) mmol/L Carbon Dioxide (21-32) mmol/L Anion Gap (3-11) BUN (7-18) mg/dl Creatinine (0.6-1.4) mg/dl Est Cr Clr Drug Dosing ml/min Est GFR ( Amer) ml/min Est GFR (Non-Af Amer) ml/min BUN/Creatinine Ratio (10-20) Glucose (70-99) mg/dl Lactate (0.4-2.0) mmol/L Calcium (8.5-10.1) mg/dl Magnesium Cancelled (1.8-2.4) mg/dl Total Bilirubin (0.2-1) mg/dl AST (15-37) U/L ALT (12-78) U/L Alkaline Phosphatase (45-117) U/L Troponin I Cancelled (0-0.045) ng/ml NT-Pro-B Natriuret Pep Cancelled (0-900) pg/ml Total Protein (6.4-8.2) gm/dl Albumin (3.4-5.0) gm/dl Globulin (2.5-4.0) gm/dl Albumin/Globulin Ratio (0.9-2) Procalcitonin (0-0.5) ng/ml Urine Color Urine Appearance (Clear) Urine pH (4.5-7.5) Ur Specific [place] (1.000-1.030) Urine Protein (Negative) Urine Glucose (UA) (Negative) Urine Ketones (Negative) Urine Blood (Negative) Urine Nitrite (Negative) Urine Bilirubin (Negative) Urine Urobilinogen (Negative) Ur Leukocyte Esterase (Negative) Urine WBC (Auto) (0-5) /hpf Urine RBC (Auto) (0-4) /hpf U Hyaline Cast (Auto) (0-5) /lpf U Epithel Cells (Auto) (0-5) /lpf Urine Bacteria (Auto) (Negative) SARS-CoV-2 (PCR) NEGATIVE (Negative) Influ A Molecular Assay Negative (Negative) Influ B Molecular Assay Negative (Negative) 07/06/21 07/06/21 07/06/21 Range/Units 19:01 19:15 19:15 WBC (4.8-10.8) K/uL RBC (4.7-6.1) M/uL Hgb (14.0-18.0) g/dL POC Hgb (14.0-18.0) g/dl Hct (42-52) % POC Hct (42-52) % MCV (80-100) fL MCH (25-34) pg MCHC (32-36) g/dL RDW Std Deviation (36.4-46.3) fL RDW Coeff of Stephanie (11.5-14.5) % Plt Count (130-400) K/uL MPV (7.4-10.4) fL Immature Gran % (Auto) % Neut % (Auto) % Lymph % (Auto) % [place] % (Auto) % Eos % (Auto) % Baso % (Auto) % Neut # (Auto) (1.4-6.5) K/uL Lymph # (Auto) (1.2-3.4) K/uL [place] # (Auto) (0.11-0.59) K/uL Eos # (Auto) (0-0.5) K/uL Baso # (Auto) (0-0.2) K/uL Immature Gran # (Auto) (0.00-0.02) K/uL Polychromasia Stomatocytes PT (9.0-12.0) Seconds INR (0.9-1.1) APTT (21.0-31.0) Seconds PTT Ratio POC pH (7.35-7.45) POC pCO2 (35-46) mmHg POC pO2 (80-95) mmHg POC HCO3 (19-24) julio/L POC Total CO2 (24-31) mmol/L POC Base Excess (-9-1.8) julio/L POC ABG O2 Sat (90-95) % POC Sodium (135-144) mmol/L Sodium (136-145) mmol/L POC Potassium (3.3-5.0) mmol/L Potassium (3.5-5.1) mmol/L Chloride (98-107) mmol/L Carbon Dioxide (21-32) mmol/L Anion Gap (3-11) BUN (7-18) mg/dl Creatinine (0.6-1.4) mg/dl Est Cr Clr Drug Dosing ml/min Est GFR ( Amer) ml/min Est GFR (Non-Af Amer) ml/min BUN/Creatinine Ratio (10-20) Glucose (70-99) mg/dl Lactate 1.3 (0.4-2.0) mmol/L Calcium (8.5-10.1) mg/dl Magnesium (1.8-2.4) mg/dl Total Bilirubin (0.2-1) mg/dl AST (15-37) U/L ALT (12-78) U/L Alkaline Phosphatase (45-117) U/L Troponin I (0-0.045) ng/ml NT-Pro-B Natriuret Pep (0-900) pg/ml Total Protein (6.4-8.2) gm/dl Albumin (3.4-5.0) gm/dl Globulin (2.5-4.0) gm/dl Albumin/Globulin Ratio (0.9-2) Procalcitonin 0.28 (0-0.5) ng/ml Urine Color Yellow Urine Appearance Clear (Clear) Urine pH 7.0 (4.5-7.5) Ur Specific [place] 1.016 (1.000-1.030) Urine Protein 2+ H (Negative) Urine Glucose (UA) Negative (Negative) Urine Ketones Negative (Negative) Urine Blood Negative (Negative) Urine Nitrite Negative (Negative) Urine Bilirubin Negative (Negative) Urine Urobilinogen Negative (Negative) Ur Leukocyte Esterase Negative (Negative) Urine WBC (Auto) 1-5 (0-5) /hpf Urine RBC (Auto) 0-4 (0-4) /hpf U Hyaline Cast (Auto) 1-5 (0-5) /lpf U Epithel Cells (Auto) 20-30 H (0-5) /lpf Urine Bacteria (Auto) Negative (Negative) SARS-CoV-2 (PCR) (Negative) Influ A Molecular Assay (Negative) Influ B Molecular Assay (Negative) 07/06/21 Range/Units 19:22 WBC (4.8-10.8) K/uL RBC (4.7-6.1) M/uL Hgb (14.0-18.0) g/dL POC Hgb 11.2 L (14.0-18.0) g/dl Hct (42-52) % POC Hct 33 L (42-52) % MCV (80-100) fL MCH (25-34) pg MCHC (32-36) g/dL RDW Std Deviation (36.4-46.3) fL RDW Coeff of Stephanie (11.5-14.5) % Plt Count (130-400) K/uL MPV (7.4-10.4) fL Immature Gran % (Auto) % Neut % (Auto) % Lymph % (Auto) % [place] % (Auto) % Eos % (Auto) % Baso % (Auto) % Neut # (Auto) (1.4-6.5) K/uL Lymph # (Auto) (1.2-3.4) K/uL [place] # (Auto) (0.11-0.59) K/uL Eos # (Auto) (0-0.5) K/uL Baso # (Auto) (0-0.2) K/uL Immature Gran # (Auto) (0.00-0.02) K/uL Polychromasia Stomatocytes PT (9.0-12.0) Seconds INR (0.9-1.1) APTT (21.0-31.0) Seconds PTT Ratio POC pH 7.39 (7.35-7.45) POC pCO2 69 H (35-46) mmHg POC pO2 135 H (80-95) mmHg POC HCO3 42 H (19-24) julio/L POC Total CO2 > 40 H* (24-31) mmol/L POC Base Excess 17.0 H (-9-1.8) julio/L POC ABG O2 Sat 99.0 H (90-95) % POC Sodium 136 (135-144) mmol/L Sodium (136-145) mmol/L POC Potassium 4.4 (3.3-5.0) mmol/L Potassium (3.5-5.1) mmol/L Chloride (98-107) mmol/L Carbon Dioxide (21-32) mmol/L Anion Gap (3-11) BUN (7-18) mg/dl Creatinine (0.6-1.4) mg/dl Est Cr Clr Drug Dosing ml/min Est GFR ( Amer) ml/min Est GFR (Non-Af Amer) ml/min BUN/Creatinine Ratio (10-20) Glucose (70-99) mg/dl Lactate (0.4-2.0) mmol/L Calcium (8.5-10.1) mg/dl Magnesium (1.8-2.4) mg/dl Total Bilirubin (0.2-1) mg/dl AST (15-37) U/L ALT (12-78) U/L Alkaline Phosphatase (45-117) U/L Troponin I (0-0.045) ng/ml NT-Pro-B Natriuret Pep (0-900) pg/ml Total Protein (6.4-8.2) gm/dl Albumin (3.4-5.0) gm/dl Globulin (2.5-4.0) gm/dl Albumin/Globulin Ratio (0.9-2) Procalcitonin (0-0.5) ng/ml Urine Color Urine Appearance (Clear) Urine pH (4.5-7.5) Ur Specific [place] (1.000-1.030) Urine Protein (Negative) Urine Glucose (UA) (Negative) Urine Ketones (Negative) Urine Blood (Negative) Urine Nitrite (Negative) Urine Bilirubin (Negative) Urine Urobilinogen (Negative) Ur Leukocyte Esterase (Negative) Urine WBC (Auto) (0-5) /hpf Urine RBC (Auto) (0-4) /hpf U Hyaline Cast (Auto) (0-5) /lpf U Epithel Cells (Auto) (0-5) /lpf Urine Bacteria (Auto) (Negative) SARS-CoV-2 (PCR) (Negative) Influ A Molecular Assay (Negative) Influ B Molecular Assay (Negative) Imaging Data Radiologist's Impression: Chest X-Ray 07/06/21 18:26 XR chest 1V portable CLINICAL HISTORY: Dyspnea. COMPARISON STUDY: 03/30/2021 TECHNIQUE: 1 view of the chest FINDINGS: Single frontal view of the chest demonstrates the cardiomediastinal silhouette to be within normal limits. Compared to the previous examination, there has been interval development of a left lower lobe alveolar opacity and lateral lingular atelectasis. The findings are suspicious for pneumonia. Chronic prominence of the interstitial markings is again seen and unchanged. There is no evidence for pleural effusion. There is no evidence for vascular congestion. There is no acute osseous pathology. IMPRESSION: Interval development of left lower lobe alveolar opacity and lingular atelectasis suspicious for early pneumonia. ACT 112: Negative or not required by law. Electronically signed by: Guillermo Tao M.D. 07/06/2021 7:09 PM ECG Data Attestation: I personally reviewed and interpreted this ECG as follows: Indication: + SOB/dyspnea Rate (beats per minute): 148 Rhythm: + sinus tachycardia ECG Intervals/blocks: + Right Bundle branch block ECG [place]: + Left axis deviation ECG ST segments: + Nonspecific ST abnormalities MDM Narrative I did evaluate the patient as noted above. The patient has a history of of lung cancer and supraglottic cancer. He also has COPD and is an oxygen dependent. He is presenting in severe respiratory distress. His O2 saturation is only 84% on BiPAP although the mask is sleeping constantly down his face due to his mix. Respiratory therapy was called to the bedside. We attempted to shave his mix with permission but was having difficulty and he could not tolerate it further so we did place the BiPAP mask on him. We were able to get a good seal despite the mix and his O2 saturation went up to 100%. I did have a discussion with him regarding CODE STATUS. He does state that he does not want to be on a ventilator even if his breathing gets worse. He also states that he does not want CPR. This was confirmed in front of his nurse. IV access was established. I did treat him with Lasix and Solu-Medrol IV. He was not given nebulized beta-adrenergic agents as his heart rate was 146. I did place an order for continuous cardiac monitoring. The monitor showed sinus tachycardia at a rate of 143 bpm. I did order and personally review the patient's 12-lead EKG as described above. He has sinus tachycardia with a right bundle branch block and left axis deviation. I did order and personally reviewed the images of the patient's chest x-ray as described above. He has a lingular and left lower lobe infiltrate. I did order blood cultures. I did treat him with Zosyn IV. I did order a urine analysis. He does not have a UTI. I did order and review the patient's blood work as noted in the electronic medical record. His white blood cell count is over 23,000. His hemoglobin is 10.4 which is improved from his previous visit. Platelet count is 561. Electrolytes demonstrate a sodium of 135, chloride of 93 and CO2 of 34. Troponin is negative. LFTs are unremarkable other than hypoalbuminemia. Influenza testing is negative. ABG was performed after about an hour in the emergency department. His pH is 7.39 PaCO2 is 69 and PaO2 is 135. His FiO2 was dropped. Procalcitonin and lactate are not elevated. COVID-19 testing is negative. I did reassess patient multiple times. He had persistent improvement of his symptoms. His blood pressure came down to normal and his heart rate came down to 117. The case was discussed with the social work case manager and the hospitalist was informed. Impression & Plan Acute hypoxemic respiratory failure, Acute exacerbation of chronic obstructive airways disease, Multifocal pneumonia Discharge Plan Visit Data Chief Complaint: Shortness of Breath/Dyspnea Stated Complaint: Respiratory distress ED Provider: Sterling Klein Discharge Problem: Acute hypoxemic respiratory failure, Acute exacerbation of chronic obstructive airways disease, Multifocal pneumonia Patient Disposition: Being Evaluated by Hospitalist Forms Stand Alone Forms: My [facility] Prescriptions Prescriptions: No Action Benefiber Sugar Free (dextrin) 3 gram/3.8 gram powder 1.5 gm PO DAILY PRN (Reason: constipation) RF: 0 mirtazapine 45 mg tablet 45 mg feeding tube HS Qty: 90 RF: 3 losartan 25 mg tablet 25 mg feeding tube DAILY Qty: 90 RF: 3 buspirone 10 mg tablet 10 mg PO BID Qty: 60 RF: 2 Mucinex Fast-Max Iqsd-Dzv-Bxlv 10-20-650 mg/20 mL liquid 15 ml feeding tube DAILY Qty: 473 RF: 2 guaifenesin [Mucinex Fast-Max Chest-Congest] 100 mg/5 mL liquid 200 mg PO BID Qty: 473 RF: 1 ferrous sulfate 220 mg (44 mg iron)/5 mL elixir 220 mg feeding tube DAILY Qty: 473 RF: 2 levothyroxine 137 mcg capsule 137 mcg feeding tube DAILY RF: 0 (DME) Oxygen Home Liters Per Minute See Rx Instructions .ROUTE .MEDSUPPLY RF: 0 lorazepam 1 mg tablet 1 mg PO BID PRN (Reason: Anxiety) RF: 0 ipratropium-albuterol 0.5 mg-3 mg(2.5 mg base)/3 mL solution for nebulization 3 ml INHALATION Q4H PRN (Reason: Shortness Of Breath) RF: 0 Nutren 2.0 0.08 gram-2 kcal/mL liquid 2 ea Feeding Tube BID RF: 0 loratadine 10 mg tablet 10 mg Feeding Tube DAILY PRN (Reason: Allergic Reaction) RF: 0 gabapentin 300 mg capsule 300 mg Feeding Tube TID RF: 0 potassium chloride 10 mEq tablet extended release 10 meq PO DAILY RF: 0 prednisone 10 mg tablet 10 mg feeding tube DAILY RF: 0 prednisone 5 mg tablet 5 mg feeding tube DAILY RF: 0 oxycodone 5 mg/5 mL solution 10 mg PO .Q4-6H PRN (Reason: pain) Qty: 200 RF: 0 fentanyl 50 mcg/hr patch 72 hour 50 mcg transdermal Q3D RF: 0 Referrals Referrals: Chapito Milner DO [Primary Care Provider] -
[2021-07-06 18:50] LABS: Partial Thromboplastin Ratio 0.9; Prothrombin Time 10.3 Seconds (9.0-12.0)
[2021-07-06 18:56] LABS: Albumin Level 2.9 gm/dl (3.4-5.0); BUN Creatinine Ratio 29.9 (10-20); Calcium 9.4 mg/dl (8.5-10.1); Creatinine Clr Calc Pharmacy 106.4 ml/min; Est GFR (African American) 106.2 ml/min; Est GFR (Non-African American) 91.6 ml/min; Potassium 4.6 mmol/L (3.5-5.1)
[2021-07-06] MEDS ORDERED: PIPERACILLIN/TAZOBACTAM 4.5 GM/120 ML BAG IV ONE (18:57)
[2021-07-06] MEDS ORDERED: PIPERACILL/TAZOBAC CONSULT ACTIVE PRN ×2 (18:57→23:47)
[2021-07-06 19:01] LABS: Albumin Globulin Ratio 0.6 (0.9-2); Bilirubin,Total 0.4 mg/dl (0.2-1); Globulin 5.2 gm/dl (2.5-4.0); Total Protein 8.1 gm/dl (6.4-8.2); Troponin I 0.018 ng/ml (0-0.045)
--- NOTE | 2021-07-06 19:10 | XRay Report ---
XR chest 1V portable CLINICAL HISTORY: Dyspnea. COMPARISON STUDY: 03/30/2021 TECHNIQUE: 1 view of the chest FINDINGS: Single frontal view of the chest demonstrates the cardiomediastinal silhouette to be within normal li mits. Compared to the previous examination, there has been interval development of a left lower lobe alveolar opacity and lateral lingular atelectasis. The findings are suspicious for pneumonia. Chronic prominence of the interstitial markings is again seen and unchanged. There is no evidence for pleura l effusion. There is no evidence for vascular congestion. There is no acute osseous pathology. IMPRESSION: Interval development of left lower lobe alveolar opacity and lingular atelectasis suspici ous for early pneumonia. ACT 112: Negative or not required by law. Electronically signed by: Guillermo Tao M.D. 07/06/2021 7:09 PM
[2021-07-06 19:13] LABS: Appearance Urine Clear (Clear); Bacteria Urine Automated Negative (Negative); Bilirubin Urine Negative (Negative); Blood Urine Negative (Negative); Color Urine Yellow; Epithelial Cell Urine Auto 20-30 /lpf (0-5); Glucose Urine UA Negative (Negative); Ketones Urine Negative (Negative); Leukocyte Esterase Urine Negative (Negative); Nitrite Urine Negative (Negative); Protein Urine 2+ (Negative); RBC Urine Automated 0-4 /hpf (0-4); Specific Gravity Urine 1.016 (1.000-1.030); Urobilinogen Urine Negative (Negative)
[2021-07-06 19:18] LABS: Influenza A virus by PCR Negative (Negative); Influenza B virus by PCR Negative (Negative)
[2021-07-06 19:36] LABS: iSTAT Arterial Blood Gas HCO3 42 meg/L (19-24); iSTAT Arterial Blood Gas pCO2 69 mmHg (35-46); iSTAT Arterial Blood Gas pH 7.39 (7.35-7.45); iSTAT Arterial Blood Gas pO2 135 mmHg (80-95); iSTAT Carbon Dioxide > 40 mmol/L (24-31); iSTAT Hematocrit 33 % (42-52); iSTAT Hemoglobin 11.2 g/dl (14.0-18.0); iSTAT Potassium 4.4 mmol/L (3.3-5.0); iSTAT Sodium 136 mmol/L (135-144)
[2021-07-06 19:48] LABS: Basophils # (auto) 0.02 K/uL (0-0.2); Basophils % (auto) 0.1 %; Eosinophils # (auto) 0.08 K/uL (0-0.5); Eosinophils % (auto) 0.3 %; Immature Granulocytes # (auto) 0.07 K/uL (0.00-0.02); Immature Granulocytes % (auto) 0.3 %; Lymphocytes # (auto) 0.88 K/uL (1.2-3.4); Lymphocytes % (auto) 3.7 %; Monocytes # (auto) 1.34 K/uL (0.11-0.59); Monocytes % (auto) 5.6 %; Neutrophils # (auto) 21.57 K/uL (1.4-6.5); Polychromasia 1+; Stomatocytes 1+
--- NOTE | 2021-07-06 20:36 | History & Physical Report ---
Date of Service July 06, 2021 Assessment & Plan (1) Multifocal pneumonia: Plan: Acute on chronic respiratory failure with hypoxia/multifocal pneumonia/COPD exacerbation/radiation fibrosis/lung cancer/supraglottic cancer- NPO except ice chips Zosyn 4.5 g IV every 8 hours Duonebs every 4 hours while awake and every 2 hours when necessary. Methylprednisolone 40 mg IV every 8 hours Continue BiPAP, taper downward as possible targeting pulse ox 94% (2) Acute exacerbation of chronic obstructive airways disease: Plan: See above (3) Acute and chronic respiratory failure with hypoxia: Plan: See above (4) Anxiety: Plan: Continue lorazepam (5) G tube feedings: Plan: Continue Nutren tube feeds (6) Hypothyroidism: Plan: Continue levothyroxine (7) Chronic pain syndrome: Plan: Continue fentanyl patch Add morphine 4 mg IV every 4 hours as needed breakthrough pain (8) Insomnia: Plan: Continue mirtazapine (9) Radiation fibrosis of lung: Plan: See above (10) Lung cancer: Plan: See above (11) Cancer of supraglottis: Plan: See above History of Present Illness Chief Complaint: The patient presents to the emergency department with report of initially feeling short of breath about 2 weeks ago, for which he received prednisone and amoxicillin for 7 days. He reports that he was feeling a little bit better at the end of this course of treatment, but felt it could probably be made longer, and since that time has become significantly worse with breathing, especially worsening this morning. Primary Care Provider: Chapito Milner DO The patient is a 71-year-old male with a past medical history including multifocal pneumonia, end-of-life care, iron deficiency anemia, peripheral neuropathy, chronic hypoxemic respiratory failure, lung nodules, PEG tube feedings, COPD, radiation fibrosis of lung, lung cancer, carotid stenosis, status post lung lobectomy, insomnia, anxiety, cancer of the supraglottis, cervical spinal stenosis, chronic low back pain and hypothyroidism. Patient presents with symptoms as noted above. Chest x-ray showed left lower lobe pneumonia Abnormal laboratories: WBC 23.96, hemoglobin 10.4, hematocrit 35.6, platelets 561, albumin 2.9 Patient was COVID-19 negative and flu A and B negative From the ED patient received: Zosyn 4.5 g IV, Solu-Medrol 125 mg IV, and furosemide 40 mg IV. Allergies Allergy/AdvReac Type Severity Reaction Status Date / Time NSAIDS (Non-Steroidal AdvReac Mild upset Verified 07/06/21 18:44 Anti-Inflamma stomach Home Medications Medication Instructions Recorded Confirmed Type levothyroxine 137 mcg capsule 137 mcg FEEDING TUBE DAILY 05/19/19 07/06/21 History ipratropium 0.5 mg-albuterol 3 mg 3 ml INHALATION Q4H PRN ml 01/15/20 07/06/21 History (2.5 mg base)/3 mL nebulization soln nutritional supplements 0.08 2 ea FEEDING TUBE BID 03/27/20 07/06/21 History gram-2 kcal/mL liquid for tube feed (Nutren 2.0) loratadine 10 mg tablet 10 mg FEEDING TUBE DAILY PRN 05/28/20 07/06/21 History gabapentin 300 mg capsule 300 mg FEEDING TUBE TID cap 11/21/20 07/06/21 History mirtazapine 45 mg tablet 45 mg FEEDING TUBE HS #90 tab 11/28/20 07/06/21 Rx losartan 25 mg tablet 25 mg FEEDING TUBE DAILY #90 tab 01/27/21 07/06/21 Rx Oxygen Home ea 02/06/21 06/18/21 History potassium chloride 10 mEq 10 meq PO DAILY 03/28/21 07/06/21 History tablet,extended release prednisone 10 mg tablet 10 mg FEEDING TUBE DAILY 03/28/21 07/06/21 History prednisone 5 mg tablet 5 mg FEEDING TUBE DAILY 03/28/21 07/06/21 History Mucinex Fast-Max Zhlo-Aat-Ntopal 15 ml FEEDING TUBE DAILY #473 ml NS 06/12/21 07/06/21 Rx 10 mg-20 mg-650 mg/20 mL oral liquid (obyuxlzfu-QK-zrxwrftd-guaifen) ferrous sulfate 220 mg (44 mg 220 mg FEEDING TUBE DAILY #473 ml 06/25/21 07/06/21 Rx iron)/5 mL oral elixir azithromycin 250 mg tablet 500 mg FEEDING TUBE 3XWK 07/06/21 07/06/21 History buspirone 10 mg tablet 10 mg FEEDING TUBE BID 07/06/21 07/06/21 History fentanyl 50 mcg/hr transdermal 50 mcg TRANSDERMAL Q3D 07/06/21 07/06/21 History patch guaifenesin 200 mg tablet 200 mg PO BID PRN 07/06/21 07/06/21 History lorazepam 1 mg tablet (Ativan) See Rx Instructions .ROUTE 07/06/21 07/06/21 History .COMPLEX PRN oxycodone 5 mg/5 mL oral solution 15 mg FEEDING TUBE Q4H PRN 07/06/21 07/06/21 History wheat dextrin 3 gram/3.8 gram oral 3 g PO BID 07/06/21 07/06/21 History powder (Benefiber Sugar Free (dextrin)) Past Med/Surg History Medical History Anxiety Cancer of supraglottis "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 Radiation completed 02/28/2010 received 7200 cGy Finding of asymmetry of larynx on the right. 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 Radiation completed 02/28/2010 received 7200 cGy Finding of asymmetry of larynx on the right. Plan for laryngoscopy and biopsy 01/27/2017 " Cervical stenosis of spinal canal Chronic hypoxemic respiratory failure Chronic low back pain "[facility]" COPD (chronic obstructive pulmonary disease) "is on home oxygen" GIB (gastrointestinal bleeding) Hypothyroidism Insomnia Lung cancer (10/04/17) Lung nodules Mass of lower lobe of left lung Oxygen dependent Presence of externally removable percutaneous endoscopic gastrostomy (PEG) tube (~2019) Radiation fibrosis of lung Surgical History H/O cervical spine surgery H/O neck surgery right side Percutaneous endoscopic gastrostomy status S/P lobectomy of lung Family History Other No pertinent family history Denies family history of Ovarian cancer Prostate cancer Breast cancer Lung cancer Colorectal cancer Social History Smoking Status: Former smoker Tobacco Type: Cigarettes Second Hand Exposure: No; Hx Alcohol Use: No Hx Substance Use: No Preferred Language: [place] Communication Ability: Effective Visual Impairment: No Limitations Hearing Ability: Normal [employer] Required: No Beliefs That Will Affect Care: None marital status: Single Current Living Situation: Significant Other current occupational status: retired Feels Safe at Home: Yes caffeine: No Dental Care, Regularly: Yes Physical Activity Frequency: Does not Exercise Seatbelt Use: always Sunscreen Use: Yes Assistive Devices: None Review of Systems Review of Systems: The patient denies chest pain, palpitations, lower extremity swelling, fevers, chills, sweats, nausea, vomiting, diarrhea , constipation, abdominal pain, pelvic pain, blood in urine or stool, dysuria, urinary frequency or urgency, lightheadedness, dizziness, headache, memory loss, loss of consciousness, rash, abnormal bruising or bleeding, imbalance, focal weakness, numbness or tingling in arms or legs, generalized arthralgias or myalgias, back or neck pain, or night sweats. The review of systems is otherwise negative other than for that already noted above, and at least 10 systems have been reviewed. Physical Exam Physical Exam: The patient is awake, alert and oriented 3, comfortable on BiPAP, normocephalic and atraumatic. HEENT--PERRL, EOMI, mucous membranes and oropharynx dry. Neck--supple. No JVD. No bruits. Thyroid normal, trachea midline, no adenopathy. Heart--normal S1 and S2. No murmurs, rubs or gallops. Lungs-coarse breath sounds worse at left base. No respiratory distress, no accessory muscle use. Abdomen--normal bowel sounds and soft. Nontender. Nondistended Extremities--no cyanosis or clubbing. No edema. Dermatologic--normal skin turgor, normal color, no abnormal lymph nodes, no rash. Neurologic--cranial nerves II through XII grossly intact. Rheumatologic--normal range of motion. Psychiatric--normal affect. Results & Data Results & Data ([facility]) Vital Signs (Past 12 Hours) Vital Signs Temp Pulse Pulse Resp BP BP Pulse Ox 07/06/21 20:15 117 H 26 H 102/50 L 97 07/06/21 20:00 132 H 29 H 103/71 98 07/06/21 19:45 136 H 24 99/70 L 95 07/06/21 19:30 140 H 29 H 98 07/06/21 19:06 137 H 36 H 153/90 H 100 07/06/21 19:00 138 H 32 H 100 07/06/21 18:27 37.4 C 149 H 43 H 182/118 H 88 L 07/06/21 18:22 146 H 34 H 96 Laboratory Results Laboratory Results WBC 23.96 K/uL (4.8-10.8) H 07/06/21 18:20 RBC 4.08 M/uL (4.7-6.1) L 07/06/21 18:20 Hgb 10.4 g/dL (14.0-18.0) L 07/06/21 18:20 POC Hgb 11.2 g/dl (14.0-18.0) L 07/06/21 19:22 Hct 35.6 % (42-52) L 07/06/21 18:20 POC Hct 33 % (42-52) L 07/06/21 19:22 MCV 87.3 fL (80-100) 07/06/21 18:20 MCH 25.5 pg (25-34) 07/06/21 18:20 MCHC 29.2 g/dL (32-36) L 07/06/21 18:20 RDW Std Deviation 61.9 fL (36.4-46.3) H 07/06/21 18:20 RDW Coeff of Stephanie 19.2 % (11.5-14.5) H 07/06/21 18:20 Plt Count 561 K/uL (130-400) H 07/06/21 18:20 MPV 9.7 fL (7.4-10.4) 07/06/21 18:20 Immature Gran % (Auto) 0.3 % 07/06/21 18:20 Neut % (Auto) 90.0 % 07/06/21 18:20 Lymph % (Auto) 3.7 % 07/06/21 18:20 [place] % (Auto) 5.6 % 07/06/21 18:20 Eos % (Auto) 0.3 % 07/06/21 18:20 Baso % (Auto) 0.1 % 07/06/21 18:20 Neut # (Auto) 21.57 K/uL (1.4-6.5) H 07/06/21 18:20 Lymph # (Auto) 0.88 K/uL (1.2-3.4) L 07/06/21 18:20 [place] # (Auto) 1.34 K/uL (0.11-0.59) H 07/06/21 18:20 Eos # (Auto) 0.08 K/uL (0-0.5) 07/06/21 18:20 Baso # (Auto) 0.02 K/uL (0-0.2) 07/06/21 18:20 Immature Gran # (Auto) 0.07 K/uL (0.00-0.02) H 07/06/21 18:20 Polychromasia 1+ 07/06/21 18:20 Stomatocytes 1+ 07/06/21 18:20 PT 10.3 Seconds (9.0-12.0) 07/06/21 18:20 INR 1.0 (0.9-1.1) 07/06/21 18:20 APTT 23.0 Seconds (21.0-31.0) 07/06/21 18:20 PTT Ratio 0.9 07/06/21 18:20 POC pH 7.39 (7.35-7.45) 07/06/21 19:22 POC pCO2 69 mmHg (35-46) H 07/06/21 19:22 POC pO2 135 mmHg (80-95) H 07/06/21 19:22 POC HCO3 42 julio/L (19-24) H 07/06/21 19:22 POC Total CO2 > 40 mmol/L (24-31) H* 07/06/21 19:22 POC Base Excess 17.0 julio/L (-9-1.8) H 07/06/21 19:22 POC ABG O2 Sat 99.0 % (90-95) H 07/06/21 19:22 POC Sodium 136 mmol/L (135-144) 07/06/21 19:22 Sodium 135 mmol/L (136-145) L 07/06/21 18:20 POC Potassium 4.4 mmol/L (3.3-5.0) 07/06/21 19:22 Potassium 4.6 mmol/L (3.5-5.1) 07/06/21 18:20 Chloride 93 mmol/L (98-107) L 07/06/21 18:20 Carbon Dioxide 34 mmol/L (21-32) H 07/06/21 18:20 Anion Gap 8.0 (3-11) 07/06/21 18:20 BUN 24 mg/dl (7-18) H 07/06/21 18:20 Creatinine 0.79 mg/dl (0.6-1.4) 07/06/21 18:20 Est Cr Clr Drug Dosing 106.4 ml/min 07/06/21 18:20 Est GFR ( Amer) 106.2 ml/min 07/06/21 18:20 Est GFR (Non-Af Amer) 91.6 ml/min 07/06/21 18:20 BUN/Creatinine Ratio 29.9 (10-20) H 07/06/21 18:20 Glucose 182 mg/dl (70-99) H 07/06/21 18:20 Lactate 1.3 mmol/L (0.4-2.0) 07/06/21 19:15 Calcium 9.4 mg/dl (8.5-10.1) 07/06/21 18:20 Magnesium 2.0 mg/dl (1.8-2.4) 07/06/21 18:20 Magnesium Cancelled 07/06/21 18:20 Total Bilirubin 0.4 mg/dl (0.2-1) 07/06/21 18:20 AST 32 U/L (15-37) 07/06/21 18:20 ALT 71 U/L (12-78) 07/06/21 18:20 Alkaline Phosphatase 88 U/L (45-117) 07/06/21 18:20 Troponin I 0.018 ng/ml (0-0.045) 07/06/21 18:20 Troponin I Cancelled 07/06/21 18:20 NT-Pro-B Natriuret Pep 792 pg/ml (0-900) 07/06/21 18:20 NT-Pro-B Natriuret Pep Cancelled 07/06/21 18:20 Total Protein 8.1 gm/dl (6.4-8.2) 07/06/21 18:20 Albumin 2.9 gm/dl (3.4-5.0) L 07/06/21 18:20 Globulin 5.2 gm/dl (2.5-4.0) H 07/06/21 18:20 Albumin/Globulin Ratio 0.6 (0.9-2) L 07/06/21 18:20 Procalcitonin 0.28 ng/ml (0-0.5) 07/06/21 19:15 Urine Color Yellow 07/06/21 19:01 Urine Appearance Clear (Clear) 07/06/21 19:01 Urine pH 7.0 (4.5-7.5) 07/06/21 19:01 Ur Specific [place] 1.016 (1.000-1.030) 07/06/21 19:01 Urine Protein 2+ (Negative) H 07/06/21 19:01 Urine Glucose (UA) Negative (Negative) 07/06/21 19: Urine Ketones Negative (Negative) 07/06/21 19:01 Urine Blood Negative (Negative) 07/06/21 19:01 Urine Nitrite Negative (Negative) 07/06/21 19: Urine Bilirubin Negative (Negative) 07/06/21 19:01 Urine Urobilinogen Negative (Negative) 07/06/21 19:01 Ur Leukocyte Esterase Negative (Negative) 07/06/21 19:01 Urine WBC (Auto) 1-5 /hpf (0-5) 07/06/21 19:01 Urine RBC (Auto) 0-4 /hpf (0-4) 07/06/21 19:01 U Hyaline Cast (Auto) 1-5 /lpf (0-5) 07/06/21 19:01 U Epithel Cells (Auto) 20-30 /lpf (0-5) H 07/06/21 19:01 Urine Bacteria (Auto) Negative (Negative) 07/06/21 19:01 SARS-CoV-2 (PCR) NEGATIVE (Negative) 07/06/21 18:44 Influ A Molecular Assay Negative (Negative) 07/06/21 18:44 Influ B Molecular Assay Negative (Negative) 07/06/21 18:44 Impressions Chest X-Ray 07/06/21 18:26 XR chest 1V portable CLINICAL HISTORY: Dyspnea. COMPARISON STUDY: 03/30/2021 TECHNIQUE: 1 view of the chest FINDINGS: Single frontal view of the chest demonstrates the cardiomediastinal silhouette to be within normal limits. Compared to the previous examination, there has been interval development of a left lower lobe alveolar opacity and lateral lingular atelectasis. The findings are suspicious for pneumonia. Chronic prominence of the interstitial markings is again seen and unchanged. There is no evidence for pleural effusion. There is no evidence for vascular congestion. There is no acute osseous pathology. IMPRESSION: Interval development of left lower lobe alveolar opacity and lingular atelectasis suspicious for early pneumonia. ACT 112: Negative or not required by law. Electronically signed by: Guillermo Tao M.D. 07/06/2021 7:09 PM Code Status & VTE Plan Code Status Conditional code: DNR. Patient will accept intubation. VTE Prophylaxis Plan VTE Prophylaxis will be ordered: Yes PG Care Time/CCT Total # of Minutes Spent Total Time Spent with Patient: Total time spent is greater than 50% in coordination of care (as documented) at patient's floor/unit and/or counseling patient: Coding Level of Care Code 22792 Initial Inpt Care Lvl 3 Diagnoses Multifocal pneumonia J18.9 Acute exacerbation of chronic obstructive airways disease J44.1 Acute and chronic respiratory failure with hypoxia J96.21 Anxiety F41.9 G tube feedings Z93.1 Hypothyroidism E03.9 Hypothyroidism type: unspecified Chronic pain syndrome G89.4 Insomnia G47.00 Radiation fibrosis of lung J70.1 Lung cancer C34.90 Laterality: unspecified laterality Lung location: unspecified part of lung Cancer of supraglottis C32.1 (1) Hypothyroidism Hypothyroidism type: unspecified Qualified Code(s): E03.9 - Hypothyroidism, unspecified (2) Lung cancer Laterality: unspecified laterality Lung location: unspecified part of lung Qualified Code(s): C34.90 - Malignant neoplasm of unspecified part of unspecified bronchus or lung
[2021-07-06] MEDS ORDERED: MoRPHine SULFATE 4 MG/ML 1 ML CARP\\VIAL ONE (22:28)
[2021-07-06] MEDS ORDERED: GLUCAGON FOR INJ 1 MG VIAL SQ PRN (23:47)
[2021-07-06] MEDS ORDERED: NSS + 20MEQ KCL 20 MEQ/1,000 ML BAG IV SCH (23:47)
[2021-07-06] MEDS ORDERED: oxyCODONE HCL SOLN 5 MG/5 ML UDC GT PRN (23:47)
[2021-07-06] MEDS ORDERED: GLUCOSE 10 TABS/TUBE PO PRN (23:47)
[2021-07-06] MEDS ORDERED: DEXTROSE 50% 50 ML SYRINGE IV PRN (23:47)
[2021-07-06] MEDS ORDERED: GLUCOSE 40% GEL 15 GM TUBE PO PRN (23:47)
[2021-07-06] MEDS ORDERED: ONDANSETRON INJ 2 MG/ML 2 ML VIAL IV PRN (23:47)
[2021-07-06] MEDS ORDERED: CARBOHYDRATES FOR HYPOGLYCEMIA PO PRN (23:47)
[2021-07-07] MEDS: guaiFENesin SUGAR FREE 200 MG/10 ML UDC GT SCH ×3 (00:49→20:14)
[2021-07-07] MEDS: busPIRone 5 MG TAB PEG SCH ×3 (00:49→20:15)
[2021-07-07] MEDS: INSULIN ASPART 100 UNITS/ML 3 ML PEN SC SCH ×4 (01:06→20:49)
[2021-07-07] MEDS: PIPERACILLIN/TAZOBACTAM 4.5 GM in DEXTROSE 5% 100 ML IV SCH ×3 (01:11→16:41)
[2021-07-07] MEDS: MoRPHine SULFATE 4 MG/ML 1 ML CARP\\VIAL IV PRN ×4 (05:20→20:14)
[2021-07-07 06:09] LABS: Hematocrit (blood only) 30.4 % (42-52); Hemoglobin 8.9 g/dL (14.0-18.0); Immature Granulocytes # (auto) 0.05 K/uL (0.00-0.02); Immature Granulocytes % (auto) 0.2 %; Lymphocytes # (auto) 0.25 K/uL (1.2-3.4); Lymphocytes % (auto) 1.2 %; Mean Corpuscular Hemoglobin 25.4 pg (25-34); Mean Corpuscular Hgb Conc 29.3 g/dL (32-36); Mean Corpuscular Volume 86.6 fL (80-100); Mean Platelet Volume 9.5 fL (7.4-10.4); Monocytes # (auto) 0.32 K/uL (0.11-0.59); Monocytes % (auto) 1.6 %; Neutrophils # (auto) 19.96 K/uL (1.4-6.5); Platelet Count 383 K/uL (130-400); RDW Coefficient of Variation 19.1 % (11.5-14.5); RDW Standard Deviation 61.3 fL (36.4-46.3); Red Blood Count 3.51 M/uL (4.7-6.1); White Blood Count 20.58 K/uL (4.8-10.8)
--- NOTE | 2021-07-07 06:36 | Hospitalist Progress Note ---
Date of Service July 07, 2021 Assessment & Plan (1) Acute exacerbation of chronic obstructive airways disease: Plan: Luis is a 71-year-old male with a history of COPD on 4L at home, lung cancer status post lobectomy complicated by radiation fibrosis of lung, supraglottic cancer, PEG placement, ?ongoing home hospice care, carotid stenosis, insomnia, anxiety, chronic low back pain, and hypothyroidism who presented for worsening shortness of breath in context of outpatient treatment failure for multifocal pneumonia. Multifocal Pneumonia with Acute Hypoxic/Hypercapenic Respiratory Failure - In context of recent outpatient treatment for the same with prednisone and amoxicillin x 7d and known history of COPD, lung cancer s/p lobectomy and radiation fibrosis, and supraglottic cancer - Work-up as follows: - CXR: demonstrating LLL PNA - Leukocytosis (>20) with left shift - COVID, Influenza A/B negative - Admission AB.39 / pCO2 69 / pHCO3 42 - MRSA nare: (pending) - Sputum GS/CX: (pending) - Continue Zosyn for now -- patient is high-risk for nosocomial infections given frequent contact with healthcare and recent hospitalization in 03/2021 - Continue methylprednisolone 40mg IV q8h x 2 days - Taper BiPAP, maintaining SpO2 > 92-94% Supraglottic Cancer - Follows with Dr. Oreilly of H/O. Has been receiving home hospice. - Consult palliative care for aid in [id number] planning with active PNA and probability of recurence - Patient with known chronic history of mild hemoptysis secondary to the same G-Tube Feedings - Continue Nutren tube feedings Hypothyroidism - Continue home levothyroxine Chronic Pain Syndrome - Continue fentanyl patch - Morphine 4mg IV q4h for breakthrough pain Anxiety / Insomnia - Continue p.r.n. lorazepam - Continue mirtazapine, buspirone HTN - Continue Losartan Code Status: CC - OK for intubation, no CPR/defibrillation Diet: Continue Nutren. NPO. PPX: pLov Dispo: PCU in setting of respiratory status, BiPAP (2) Multifocal pneumonia: (3) Chronic pain syndrome: (4) Iron deficiency anemia: (5) Lung nodules: (6) Radiation fibrosis of lung: (7) COPD (chronic obstructive pulmonary disease): (8) Carotid stenosis: (9) S/P lobectomy of lung: (10) Renal cyst: (11) Presence of externally removable percutaneous endoscopic gastrostomy (PEG) tube: (12) Unspecified essential hypertension: (13) Coronary atherosclerosis of [place] coronary vessel: Admission and Anticipated Discharge Date Admission Date: July 06, 2021 Supervising Physician Co-Signing Physician Notes I also saw the patient with the resident physician and confirmed abebe portions of the history and physical examination. I also discussed the case with the palliative care team. I agree with the impression and plan as noted in the resident documentation. Exam Upon our exam late morning, the patient was resting in bed without complaint. At the time of our exam, he was able to speak in full complete sentences, pausing only after about 2 sentences. No significant respiratory distress appreciated. Data WBC 20.58, hemoglobin 8.9 sodium 136, BUN 30, creatinine 0.82 Chest x-ray dated 07/06/2021 shows interval development of a left lower lobe opacity and lingular atelectasis, question early pneumonia Blood cultures dated 07/06/2021 are pending Sputum collection Gram stain from 07/07/2021 shows moderate WBCs, moderate epithelial cells, and a few gram-positive cocci, culture is pending. Assessment and plan Multifocal pneumonia with acute hypoxic/hypercapnic respiratory failure Continue Zosyn Continue methylprednisolone 40 mg IV every 8 hours Supraglottic cancer Had been on home hospice prior to this admission Appreciate palliative care input Additional per resident documentation Subjective Patient tolerated BiPAP well overnight. Seen at the bedside this morning, confirms history of present illness without any changes. Patient reports that over the last week, has had progressively more shortness of breath. Yesterday, became extremely winded. Not much associated coughing. Denies any fevers, chills, night sweats, loss of appetite or other illness-like symptoms. He says that on the BiPAP, his breathing feels improved. He denies any chest pain. He says that he did feel like his symptoms improved after the amoxicillin and prednisone he received as an outpatient. Further, he does confirm to me that he is receiving outpatient hospice approximately once a week. We did spend significant time discussing CODE STATUS. He does say on multiple occasions that he does not want any chest compressions or cardiac defibrillation, but would like to attempt intubation if it comes to that, even if the duration of need for intubation is unknown. Review of Systems Review of Systems: as per HPI Physical Exam Physical Exam: General: Tired, but otherwise well-appearing 71-year-old gentleman lying back in his hospital bed, relaxed upon my arrival. No acute distress. HEENT: NCAT. Eyes - Sclera are white, anicteric, and without injection. Neckno jugular venous distention. Cardiac: Normal rate and regular rhythm; S1 and S2 present with no murmurs, rubs, or gallops. Pulmonary: BiPAP in place. No use of accessory muscles. No conversational dyspnea when BiPAP is removed. Diminished breath sounds appreciable within the left lung. Abdominal: Normoactive bowel sounds. Abdomen was soft, nondistended, and non- tender to palpation. Extremities: Upper and lower extremities are warm and well perfused. Trace peripheral edema in the lower extremities bilaterally. Psych: Well-developed, well-nourished, appropriately dressed for occasion. Behavior is cooperative and appropriate. Affect is WNL. Insight is appropriate. Results & Data Results & Data ([facility]) Vital Signs (Past 12 Hours) Vital Signs Temp Pulse Pulse Resp BP BP Pulse Ox 07/07/21 05:47 36.9 C 94 H 19 110/74 94 07/07/21 05:03 90 24 121/71 96 07/07/21 05:00 91 H 22 96 07/07/21 04:00 88 21 93 07/07/21 03:00 88 24 96 07/07/21 02:00 103 H 89 21 92/55 L 92/55 L 97 07/07/21 01:00 107 H 107 H 26 H 133/70 133/70 96 07/07/21 00:04 109 H 22 106/65 96 07/07/21 00:00 111 H 18 97 07/06/21 23:57 07/06/21 23:27 113 H 22 105/60 22 L 07/06/21 23:00 113 H 22 96 07/06/21 22:30 115 H 24 122/62 95 07/06/21 22:11 120 H 20 94 07/06/21 22:00 119 H 26 H 105/58 L 96 07/06/21 21:30 120 H 24 128/84 97 07/06/21 21:00 121 H 24 105/57 L 98 07/06/21 20:30 128 H 24 104/62 96 07/06/21 20:15 117 H 26 H 102/50 L 97 07/06/21 20:00 132 H 29 H 103/71 98 07/06/21 19:45 136 H 24 99/70 L 95 07/06/21 19:30 140 H 29 H 98 07/06/21 19:06 137 H 36 H 153/90 H 100 07/06/21 19:00 138 H 32 H 100 Pulse Ox 07/07/21 05:47 07/07/21 05:03 07/07/21 05:00 07/07/21 04:00 07/07/21 03:00 07/07/21 02:00 07/07/21 01:00 07/07/21 00:04 07/07/21 00:00 07/06/21 23:57 96 07/06/21 23:27 07/06/21 23:00 07/06/21 22:30 07/06/21 22:11 07/06/21 22:00 07/06/21 21:30 07/06/21 21:00 07/06/21 20:30 07/06/21 20:15 07/06/21 20:00 07/06/21 19:45 07/06/21 19:30 07/06/21 19:06 07/06/21 19:00 Resident Activity Tracking Resident Involvement: Resident Care Provided Care Provided: Adult Hospital Medicine (1) Coronary atherosclerosis of [place] coronary vessel Associated angina: without angina [place] vs. transplanted heart: [place] heart Qualified Code(s): I25.10 - Atherosclerotic heart disease of [place] coronary artery without angina pectoris (2) COPD (chronic obstructive pulmonary disease) COPD type: unspecified COPD Qualified Code(s): J44.9 - Chronic obstructive pulmonary disease, unspecified
[2021-07-07 06:40] LABS: Albumin Level 2.5 gm/dl (3.4-5.0); BUN Creatinine Ratio 36.4 (10-20); Calcium 9.3 mg/dl (8.5-10.1); Creatinine Clr Calc Pharmacy 98.1 ml/min; Est GFR (African American) 104.6 ml/min; Est GFR (Non-African American) 90.2 ml/min; Potassium 4.8 mmol/L (3.5-5.1)
[2021-07-07 06:43] LABS: Albumin Globulin Ratio 0.5 (0.9-2); Bilirubin,Total 0.4 mg/dl (0.2-1); Globulin 4.8 gm/dl (2.5-4.0); Total Protein 7.3 gm/dl (6.4-8.2)
[2021-07-07] MEDS: ALBUT/IPRATROP 3MG/0.5MG NEB 3 ML VIAL NEB SCH ×4 (07:16→19:31)
[2021-07-07 07:37] LABS: Estimated Average Glucose 131 mg/dl; Hemoglobin A1C 6.2 % (4.5-5.6)
[2021-07-07] MEDS ORDERED: fentaNYL 50 MCG/HR TDSY TD SCH (09:00)
[2021-07-07] MEDS: LEVOTHYROXINE SODIUM 137 MCG TABLET PO SCH (09:09)
[2021-07-07] MEDS: methylPREDNISolone 40 MG in SYRINGE 0 ML IV SCH ×3 (09:22→23:24)
[2021-07-07] MEDS: ENOXAPARIN INJ 40 MG/0.4 ML SYR SQ SCH (09:23)
[2021-07-07] MEDS ORDERED: INSULIN ASPART 100 UNITS/ML 3 ML PEN SC SCH (12:00)
--- NOTE | 2021-07-07 12:19 | Palliative Care Consultation ---
Date of Consultation July 07, 2021 Assessment & Plan (1) Palliative care encounter: Mr. Boss is a 71 year old male who presented to the [facility] with shortness of breath. He was receiving hospice services prior to his admission with [facility]. He has an additional PMH that includes: lung cancer s/p radiation and lobectomy, multifocal pneumonia, iron deficiency anemia, peripheral neuropathy, chronic hypoxemic respiratory failure, COPD, carotid stenosis, insomnia, anxiety, cervical spinal stenosis, chronic low back pain and hypothyroidism.He was given IV steroids, diuretics, and IV abx for treatment of PNA. Palliative Medicine was consulted to discuss overall goals of care and pain management. I met with Luis in room 109. He was sitting upright on 6 L humidified nasal canula, later was placed on Bipap. He stated that he was been home with hospice support, but revoked for IV antibiotics and aggressive treatment. He initially was listed as a conditional code. We discussed his code status at length and after gaining understanding about what a ventilator is and the unliklihood he would have a meaningful recovery, he decided towards being a DNR/DNI, which is now reflected in the computer. He does have a goal to return home with hospice support and talked about his significant other, Jessica, and how important she is to him. He was satisfied with [facility] services, but appears that they need to find a good balance of visit and encounters that would work for him. See below for pain assessment and discussion. Case management aware that patient wants to return home with hospice. (2) Abdominal pain: Patient describes constant 7/10 pain that radiates across his stomach and up his right shoulder into his shoulder blade. For pain control he takes: Fentanyl patch 50 mcg TD Q3 days, which he admittedly states he places his new patch on, leaves the old patch in place for another 2-3 days before removing. He reports using Roxicodone 10 mg PO Q4 PRN through his G-tube, relatively routinely every 4 hours, but has not utilized any while here in the hospital. He has used one dose of Morphine 4 mg Q 3 PRN. We discussed the appropriate use and disposal of Fentanyl patches. I explained that it is unlikely we can eliminate his pain overall, but can hope to come to an acceptable level of pain that he can tolerate. He said that he would accept a pain level of 3 or 4. For more retirement pain management, will increase his Fentanyl patch to 75 mcg TD Q 3days and hope for decreased breakthrough use. Will monitor while inpatient and hospice can manage upon discharge. No signs of drowsiness at this time. (3) Anxiety: He has Ativan 1 mg PO BID PRN for anxiety. He has not used any dosing here. Some emotional pain associated with his diagnoses. Consider routine dosing of Ativan at a lesser dose. (4) Neuropathic pain: (5) Lung cancer: Laterality: unspecified laterality Lung location: unspecified part of lung Qualified Code(s): C34.90 - Malignant neoplasm of unspecified part of unspecified bronchus or lung History of Present Illness Reason for Consultation: goals of care Requesting Physician: Dr. Herrera Esquivel Attending Physician: Clint Akhtar DO History of Present Illness Mr. Boss is a 71 year old male who presented to the [facility] with shortness of breath. He was receiving hospice services prior to his admission with [facility]. He has an additional PMH that includes: lung cancer s/p radiation and lobectomy, multifocal pneumonia, iron deficiency anemia, peripheral neuropathy, chronic hypoxemic respiratory failure, COPD, carotid stenosis, insomnia, anxiety, cervical spinal stenosis, chronic low back pain and hypothyroidism.He was given IV steroids, diuretics, and IV abx for treatment of PNA. Palliative Medicine was consulted to discuss overall goals of care and pain management. Please see A/P for further details. Thanks for involving palliative medicine with this individual. Allergies Allergy/AdvReac Type Severity Reaction Status Date / Time NSAIDS (Non-Steroidal AdvReac Mild upset Verified 07/06/21 18:44 Anti-Inflamma stomach Home Medications Medication Instructions Recorded Confirmed Type levothyroxine 137 mcg capsule 137 mcg FEEDING TUBE DAILY 05/19/19 07/06/21 History ipratropium 0.5 mg-albuterol 3 mg 3 ml INHALATION Q4H PRN ml 01/15/20 07/06/21 History (2.5 mg base)/3 mL nebulization soln nutritional supplements 0.08 2 ea FEEDING TUBE BID 03/27/20 07/06/21 History gram-2 kcal/mL liquid for tube feed (Nutren 2.0) loratadine 10 mg tablet 10 mg FEEDING TUBE DAILY PRN 05/28/20 07/06/21 History gabapentin 300 mg capsule 300 mg FEEDING TUBE TID cap 11/21/20 07/06/21 History mirtazapine 45 mg tablet 45 mg FEEDING TUBE HS #90 tab 11/28/20 07/06/21 Rx losartan 25 mg tablet 25 mg FEEDING TUBE DAILY #90 tab 01/27/21 07/06/21 Rx Oxygen Home ea 02/06/21 06/18/21 History potassium chloride 10 mEq 10 meq PO DAILY 03/28/21 07/06/21 History tablet,extended release prednisone 10 mg tablet 10 mg FEEDING TUBE DAILY 03/28/21 07/06/21 History prednisone 5 mg tablet 5 mg FEEDING TUBE DAILY 03/28/21 07/06/21 History Mucinex Fast-Max Eygx-Knj-Gykbgx 15 ml FEEDING TUBE DAILY #473 ml NS 06/12/21 07/06/21 Rx 10 mg-20 mg-650 mg/20 mL oral liquid (wqocjvdvb-WZ-lqsfwlkt-guaifen) ferrous sulfate 220 mg (44 mg 220 mg FEEDING TUBE DAILY #473 ml 06/25/21 07/06/21 Rx iron)/5 mL oral elixir azithromycin 250 mg tablet 500 mg FEEDING TUBE 3XWK 07/06/21 07/06/21 History buspirone 10 mg tablet 10 mg FEEDING TUBE BID 07/06/21 07/06/21 History fentanyl 50 mcg/hr transdermal 50 mcg TRANSDERMAL Q3D 07/06/21 07/06/21 History patch guaifenesin 200 mg tablet 200 mg PO BID PRN 07/06/21 07/06/21 History lorazepam 1 mg tablet (Ativan) See Rx Instructions .ROUTE 07/06/21 07/06/21 History .COMPLEX PRN oxycodone 5 mg/5 mL oral solution 15 mg FEEDING TUBE Q4H PRN 07/06/21 07/06/21 History wheat dextrin 3 gram/3.8 gram oral 3 g PO BID 07/06/21 07/06/21 History powder (Benefiber Sugar Free (dextrin)) Patient History Medical History (Updated 07/07/21 @ 20:44 by VEE White) Abdominal pain Anxiety Cancer of supraglottis "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 Radiation completed 02/28/2010 received 7200 cGy Finding of asymmetry of larynx on the right. 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 Radiation completed 02/28/2010 received 7200 cGy Finding of asymmetry of larynx on the right. Plan for laryngoscopy and biopsy 01/27/2017 " Cervical stenosis of spinal canal Chronic hypoxemic respiratory failure Chronic low back pain "[facility]" COPD (chronic obstructive pulmonary disease) "is on home oxygen" GIB (gastrointestinal bleeding) Hypothyroidism Insomnia Lung cancer (10/04/17) Lung nodules Mass of lower lobe of left lung Oxygen dependent Palliative care encounter Presence of externally removable percutaneous endoscopic gastrostomy (PEG) tube (~2018) Radiation fibrosis of lung Surgical History H/O cervical spine surgery H/O neck surgery right side Percutaneous endoscopic gastrostomy status S/P lobectomy of lung Family History Other No pertinent family history Denies family history of Ovarian cancer Prostate cancer Breast cancer Lung cancer Colorectal cancer Social History Smoking Status: Former smoker Tobacco Type: Cigarettes Second Hand Exposure: No; Hx Alcohol Use: No Hx Substance Use: No Preferred Language: Pashto Communication Ability: Effective Visual Impairment: No Limitations Hearing Ability: Normal 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 Product Inspection Required: No Beliefs That Will Affect Care: None marital status: Single Current Living Situation: Significant Other Current Living Situation Comment: significant other is caregiver current occupational status: retired Feels Safe at Home: Yes caffeine: No Dental Care, Regularly: Yes Physical Activity Frequency: Does not Exercise Seatbelt Use: always Sunscreen Use: Yes Assistive Devices: Oxygen - Continuous Review of Systems Review of Systems: [place] System Assessment Scale: Pain: 3/3 SOB: 2/3 Anxiety: 1/3 Lack of appetite: 1/3 Palliative Performance Scale: 30% Physical Exam Constitutional: + frail appearing and comfortable ENMT: Mouth: + dry oral mucous membranes Respiratory: + labored breathing Auscultation: + diminished lung sounds Cardiovascular: Rate/Rhythm: regular rate and regular rhythm Heart Sounds: normal S1 and normal S2 Extremities: normal capillary refill Gastrointestinal (Abdomen): Inspection/Auscultation: abdomen normal to inspection Percussion/Palpation: abdomen soft Skin: + pallor Psychiatric: Orientation: alert and oriented x 3 Insight: good insight Judgement: good judgement Results & Data ([facility]) Vital Signs (Past 12 Hours) Vital Signs Temp Pulse Pulse Resp BP BP Pulse Ox 07/07/21 09:00 99 H 21 101/57 L 93 07/07/21 08:00 36.7 C 89 21 107/64 94 07/07/21 07:18 92 H 24 94 07/07/21 07:17 93 H 24 94 07/07/21 07:00 88 19 95 07/07/21 05:47 36.9 C 94 H 19 110/74 94 07/07/21 05:03 90 24 121/71 96 07/07/21 05:00 91 H 22 96 07/07/21 04:00 88 21 93 07/07/21 03:00 88 24 96 07/07/21 02:00 103 H 89 21 92/55 L 92/55 L 97 07/07/21 01:00 107 H 107 H 26 H 133/70 133/70 96 PG Care Time/CCT Total # of Minutes Spent Total Time Spent with Patient: Total time spent is greater than 50% in coordination of care (as documented) at patient's floor/unit and/or counseling patient: 100 minutes with > 50% of that time spent assessing the patient, discussing goals of care, addressing symptom management needs, and collaborating with IDT Coding Level of Care Code 41433 Initial Inpt Care Lvl 3 Diagnoses Palliative care encounter Z51.5 Abdominal pain R10.9 Neuropathic pain M79.2 Lung cancer C34.90 Laterality: unspecified laterality Lung location: unspecified part of lung Anxiety F41.9 Time Spent (min) 100
[2021-07-07] MEDS ORDERED: fentaNYL 75 MCG/HR TDSY TD SCH (13:15)
[2021-07-07] MEDS: FERROUS SULFATE ELIX 220MG/5ML PEG SCH (13:18)
[2021-07-07] MEDS: LOSARTAN POTASSIUM 25 MG TAB PEG SCH (13:18)
[2021-07-07] MEDS: POTASSIUM CHLORIDE 20 MEQ/15 ML UDC PEG SCH (13:19)
--- NOTE | 2021-07-07 14:41 | Electrocardiogram Report ---
Test Reason : Blood Pressure : / mmHG Vent. Rate : 148 BPM Atrial Rate : 148 BPM P-R Int : 116 ms QRS Dur : 122 ms QT Int : 286 ms P-R-T Axes : 002 -83 061 degrees QTc Int : 449 ms Poor data quality, interpretation may be adversely affected Sinus tachycardia Left axis deviation Right bundle branch block Inferior infarct , age undetermined Abnormal ECG When compared with ECG of 31-MAR-2021 06:25, Right bundle branch block is now Present Inferior infarct is now Present Confirmed by Bay Christianson ([id number]) on 07/07/2021 2:41:23 PM Referred By: REFERRED SELF Confirmed By:Contreras Christianson
[2021-07-07] MEDS: CHECK fentaNYL PATCH PLACEMENT SCH (15:29)
[2021-07-07] MEDS: fentaNYL 75 MCG/HR TDSY TD SCH (15:29)
[2021-07-07] MEDS: TUBE FEEDING WATER FLUSH GT SCH ×3 (16:00→20:15)
[2021-07-07] MEDS ORDERED: ENTERAL NUTRITION FORMULA PEG SCH ×2 (16:30→17:00)
[2021-07-07] MEDS ORDERED: [UNRECOGNIZED DRUG - OTHER] PEG SCH ×2 (16:30→17:00)
[2021-07-08] MEDS: CHECK fentaNYL PATCH PLACEMENT SCH ×4 (00:13→22:47)
[2021-07-08] MEDS: PIPERACILLIN/TAZOBACTAM 4.5 GM in DEXTROSE 5% 100 ML IV SCH ×2 (01:06→08:37)
[2021-07-08 04:33] LABS: Hemoglobin 8.6 g/dL (14.0-18.0); Immature Granulocytes # (auto) 0.03 K/uL (0.00-0.02); Immature Granulocytes % (auto) 0.2 %; Lymphocytes # (auto) 0.19 K/uL (1.2-3.4); Lymphocytes % (auto) 1.4 %; Mean Corpuscular Hemoglobin 25.4 pg (25-34); Mean Corpuscular Hgb Conc 29.7 g/dL (32-36); Mean Corpuscular Volume 85.5 fL (80-100); Mean Platelet Volume 9.6 fL (7.4-10.4); Monocytes # (auto) 0.25 K/uL (0.11-0.59); Monocytes % (auto) 1.9 %; Neutrophils # (auto) 12.91 K/uL (1.4-6.5); Neutrophils % (auto) 96.5 %; Platelet Count 347 K/uL (130-400); RDW Coefficient of Variation 19.1 % (11.5-14.5); RDW Standard Deviation 60.9 fL (36.4-46.3); Red Blood Count 3.39 M/uL (4.7-6.1); White Blood Count 13.38 K/uL (4.8-10.8)
[2021-07-08 04:51] LABS: Albumin Level 2.3 gm/dl (3.4-5.0); BUN Creatinine Ratio 50.4 (10-20); Calcium 9.7 mg/dl (8.5-10.1); Creatinine Clr Calc Pharmacy 114.9 ml/min; Est GFR (African American) 111.6 ml/min; Est GFR (Non-African American) 96.3 ml/min; Potassium 4.5 mmol/L (3.5-5.1)
[2021-07-08] MEDS: MoRPHine SULFATE 4 MG/ML 1 ML CARP\\VIAL IV PRN (04:54)
[2021-07-08] MEDS: LEVOTHYROXINE SODIUM 137 MCG TABLET PO SCH ×2 (04:55→08:34)
[2021-07-08 04:56] LABS: Albumin Globulin Ratio 0.5 (0.9-2); Bilirubin,Total 0.3 mg/dl (0.2-1); Globulin 4.7 gm/dl (2.5-4.0)
--- NOTE | 2021-07-08 06:54 | Hospitalist Progress Note ---
Date of Service July 08, 2021 Assessment & Plan (1) Acute exacerbation of chronic obstructive airways disease: Plan: Luis is a 71-year-old male with a history of COPD on 6L at home, lung cancer status post lobectomy complicated by radiation fibrosis of lung, supraglottic cancer, PEG placement, ongoing home hospice care, carotid stenosis, insomnia, anxiety, chronic low back pain, and hypothyroidism who presented for worsening shortness of breath in context of outpatient treatment failure for multifocal pneumonia. [id number] Hypoxic/Hypercapnic Respiratory Failure - secondary to PNA, possible component of COPD exacerbation - In context of recent outpatient treatment for the same with prednisone and amoxicillin x 7d and known history of COPD, lung cancer s/p lobectomy and radiation fibrosis, and supraglottic cance - Work-up as follows: - CXR: demonstrating LLL PNA - Leukocytosis (>20) with left shift on admission -- improving daily - COVID, Influenza A/B negative - MRSA nare: negative - Sputum GS/CX: Moderate WBCs, few GPCs, culture pending - Transition from Zosyn --> Levofloxacin 750mg daily x 6 days, longer if needed - Stop methylprednisolone --> transition to prednisone taper (40mg x 2d --> 30mg x 2d --> 20mg x 2d --> home dose of 15mg daily) - DuoNeb b.i.d. Supraglottic Cancer - Follows with Dr. Oreilly of H/O. Has been receiving home hospice. - Palliative care consulted: transition back to hospice after d/c, code status updated, pain control -- d/c IV morphine - Patient with known chronic history of mild hemoptysis secondary to the same G-Tube Feedings - Continue Nutren tube feedings Hypothyroidism - Continue home levothyroxine Chronic Pain Syndrome - Continue fentanyl patch (increased to 75mg TD q3d) - Morphine IV for breakthrough pain discontinued -- transition to Roxicodone, appreciate palliative adjustment Anxiety / Insomnia - Continue p.r.n. lorazepam - Continue mirtazapine, buspirone HTN - Continue Losartan Consult PT - appreciate insight on need for walker/cane at home and any exercises he can do. He is hospice status. Code Status: DNR/DNI Diet: Continue Nutren PPX: pLov Dispo: PCU in setting of respiratory status - likely can downgrade today (2) Multifocal pneumonia: (3) Chronic pain syndrome: (4) Iron deficiency anemia: (5) Lung nodules: (6) Radiation fibrosis of lung: (7) COPD (chronic obstructive pulmonary disease): (8) Carotid stenosis: (9) S/P lobectomy of lung: (10) Renal cyst: (11) Presence of externally removable percutaneous endoscopic gastrostomy (PEG) tube: (12) Unspecified essential hypertension: (13) Coronary atherosclerosis of [place] coronary vessel: Admission and Anticipated Discharge Date Admission Date: July 06, 2021 Supervising Physician Co-Signing Physician Notes I also saw the patient with the resident physician and confirmed abebe portions of the history and physical examination. I agree with the impression and plan as noted in the resident documentation. Exam 136/83, 79, 22, 98% on 6 lpm. Upon our exam this morning, the patient was resting in bed without complaint. At the time of our exam, he was able to speak in full complete sentences, pausing only after about 2 sentences. With prolonged conversation, his SPO2 will drop to the low 90s/high 80s, recovers with pause in speech. No significant respiratory distress appreciated. Data WBC 13.38, hemoglobin 8.6 sodium 137, BUN 35, creatinine 0.7 Chest x-ray dated 07/06/2021 shows interval development of a left lower lobe opacity and lingular atelectasis, question early pneumonia Blood cultures dated 07/06/2021 no growth at 24 hours. Sputum collection Gram stain from 07/07/2021 shows moderate WBCs, moderate epithelial cells, and a few gram-positive cocci, culture is pending. Assessment and plan Multifocal pneumonia with acute hypoxic/hypercapnic respiratory failure Transition to PO antibiotics and steroids. Supraglottic cancer Had been on home hospice prior to this admission PT/OT, primarily for recommendation for assistive ambulatory device Appreciate palliative care input Plan is to return home on hospice Additional per resident documentation Subjective NAEO. Feeling well this morning. Says breathing is almost back to baseline. Still coughing intermittently. Mild nausea w/o vomitting this AM. No CP or palpitations. Voiding fine. No chills, NS. Looking fw to going home. Review of Systems Review of Systems: as per HPI Physical Exam Physical Exam: General: Tired, but otherwise well-appearing 71-year-old gentleman lying back in his hospital bed, relaxed upon my arrival. No acute distress. HEENT: NCAT. Eyes - Sclera are white, anicteric, and without injection. Neckno jugular venous distention. Cardiac: Normal rate and regular rhythm; S1 and S2 present with no murmurs, rubs, or gallops. Pulmonary: NC in place. No use of accessory muscles. No conversational dyspnea. Diminished breath sounds appreciable within the left lung, mild end expiratory wheezes appreciated Abdominal: Normoactive bowel sounds. Abdomen was soft, nondistended, and non- tender to palpation. Extremities: Upper and lower extremities are warm and well perfused. Results & Data Results & Data ([facility]) Vital Signs (Past 12 Hours) Vital Signs Temp Pulse Pulse Resp BP Pulse Ox 07/08/21 04:30 36.7 C 80 20 136/83 94 07/08/21 00:00 36.7 C 92 H 91 H 18 118/72 95 07/07/21 20:14 36.6 C 98 H 28 H 145/72 H 97 07/07/21 19:31 90 22 98 Resident Activity Tracking Resident Involvement: Resident Care Provided Care Provided: Adult Hospital Medicine (1) Coronary atherosclerosis of [place] coronary vessel Associated angina: without angina [place] vs. transplanted heart: [place] heart Qualified Code(s): I25.10 - Atherosclerotic heart disease of [place] coronary artery without angina pectoris (2) COPD (chronic obstructive pulmonary disease) COPD type: unspecified COPD Qualified Code(s): J44.9 - Chronic obstructive pulmonary disease, unspecified
[2021-07-08] MEDS: ALBUT/IPRATROP 3MG/0.5MG NEB 3 ML VIAL NEB SCH ×3 (07:22→19:47)
[2021-07-08] MEDS ORDERED: [UNRECOGNIZED DRUG - OTHER] PEG SCH (07:30)
[2021-07-08] MEDS ORDERED: ENTERAL NUTRITION FORMULA PEG SCH (07:30)
[2021-07-08] MEDS: TUBE FEEDING WATER FLUSH GT SCH ×4 (08:34→21:05)
[2021-07-08] MEDS: ENOXAPARIN INJ 40 MG/0.4 ML SYR SQ SCH (08:34)
[2021-07-08] MEDS: busPIRone 5 MG TAB PEG SCH ×2 (08:34→21:05)
[2021-07-08] MEDS: FERROUS SULFATE ELIX 220MG/5ML PEG SCH (08:35)
[2021-07-08] MEDS: LOSARTAN POTASSIUM 25 MG TAB PEG SCH (08:35)
[2021-07-08] MEDS: guaiFENesin SUGAR FREE 200 MG/10 ML UDC GT SCH ×2 (08:35→21:05)
[2021-07-08] MEDS: POTASSIUM CHLORIDE 20 MEQ/15 ML UDC PEG SCH (08:37)
[2021-07-08] MEDS: methylPREDNISolone 40 MG in SYRINGE 0 ML IV SCH (08:38)
[2021-07-08] MEDS: INSULIN ASPART 100 UNITS/ML 3 ML PEN SC SCH ×2 (08:49→12:00)
[2021-07-08] MEDS ORDERED: oxyCODONE HCL SOLN 5 MG/5 ML UDC GT PRN (09:06)
[2021-07-08] MEDS ORDERED: levoFLOXacin 750 MG TAB PO SCH (11:00)
[2021-07-08] MEDS: predniSONE 20 MG TAB PO SCH (11:37)
[2021-07-08] MEDS ORDERED: Nursing to Pharmacy Communication SCH (12:00)
--- NOTE | 2021-07-08 12:36 | Palliative Care Progress Note ---
Date of Service July 08, 2021 Assessment & Plan (1) Palliative care encounter: Plan: I met with Luis in room 109. He was sitting upright on 6 L humidified nasal canula, later was placed on Bipap as he has tolerated yesterday. Confirmed his code status to be DNR/DNI with a goal to return home with hospice. He does have a goal to return home with hospice support and talked about his significant other, Jessica, and how important she is to him. He was satisfied with [facility] services, but appears that they need to find a good balance of visit and encounters that would work for him. See below for pain assessment and discussion. Case management aware that patient wants to return home with hospice. (2) Abdominal pain: Plan: Patient describes constant 5/10 pain that radiates across his stomach and up his right shoulder into his shoulder blade. As previously mentioned, an acceptable level of pain that he can tolerate. He said that he would accept a pain level of 3 or 4. Patient tolerating the fentanyl patch increase to 75 mcg. Patient had utilized FOUR doses of IV Morphine over the past 24 hours. If the goal is to return home, discussed discontinuing IV opiates to focus on oral regimen control, which he voiced being comfortable with that plan. He typically has used Roxicodone 10 mg PO Q4 PRN through his G-tube, relatively routinely every 4 hours, but has not utilized any while here in the hospital. Discussed in detail transitioning him to Roxanol for additional pain management, which he was receptive to based on Hospice formulary list. Will order Roxanol 10 mg Q6 PRN for air hunger/pain. Discussed appropriate use of these medications. We discussed the appropriate use and disposal of Fentanyl patches again and reiterated the importance of strict medication compliance, even with Hospice to ensure adequate and appropriate pain control. We discussed that since he will be returning home with hospice, that in order for them to provide him with the best quality of life and pain management, they will need to establish visits to ensure his symptoms and pain are managed well. He verbalized understanding and adherence to that plan. I discussed his care in detail with Guerrero Sloan, hospice liason with [facility] who plans to see this individual prior to his discharge tomorrow 07/09. (3) Anxiety: Plan: He has Ativan 1 mg PO BID PRN for anxiety. He has not used any dosing here. Some emotional pain associated with his diagnoses. Consider routine dosing of Ativan at a lesser dose. (4) Neuropathic pain: (5) Lung cancer: Admission and Anticipated Discharge Date Admission Date: July 06, 2021 Subjective Pt sitting upright in his bed, in NAD. Desaturates when he talks in full sentences, 87-88%. Currently on 6LNC. Some nausea this morning was reported. Goal is to return home with Hospice tomorrow 07/09 Please see A/P for further details. Review of Systems Review of Systems: [place] System Assessment Scale: Pain: 3/3 SOB: 2/3 Anxiety: 1/3 Lack of appetite: /3 Palliative Performance Scale: 30% Physical Exam Constitutional: + frail appearing and comfortable ENMT: Mouth: + dry oral mucous membranes Respiratory: + labored breathing Auscultation: + diminished lung sounds Cardiovascular: Rate/Rhythm: regular rate and regular rhythm Heart Sounds: normal S1 and normal S2 Extremities: normal capillary refill Gastrointestinal (Abdomen): Inspection/Auscultation: abdomen normal to inspection Percussion/Palpation: abdomen soft Skin: + pallor Psychiatric: Orientation: alert and oriented x 3 Insight: good insight Judgement: good judgement Results & Data ([facility]) Vital Signs (Past 12 Hours) Vital Signs Temp Pulse Pulse Resp BP BP Pulse Ox 07/08/21 12:00 36.5 C 101 H 20 138/67 94 07/08/21 10:43 93 07/08/21 10:00 107 H 18 92 07/08/21 09:00 79 14 07/08/21 08:00 91 H 17 122/71 95 07/08/21 07:48 79 22 98 07/08/21 07:00 89 15 99 07/08/21 04:30 36.7 C 80 20 136/83 94 PG Care Time/CCT Total # of Minutes Spent Total Time Spent with Patient: Total time spent is greater than 50% in coordination of care (as documented) at patient's floor/unit and/or counseling patient: 45 minutes Coding Level of Care Code 15901 Subseq Hosp Care Lvl 3 Diagnoses Palliative care encounter Z51.5 Abdominal pain R10.9 Anxiety F41.9 Neuropathic pain M79.2 Lung cancer C34.90 Laterality: unspecified laterality Lung location: unspecified part of lung Time Spent (min) 45 (1) Lung cancer Laterality: unspecified laterality Lung location: unspecified part of lung Qualified Code(s): C34.90 - Malignant neoplasm of unspecified part of unspecified bronchus or lung
[2021-07-08] MEDS: ENTERAL NUTRITION FORMULA PEG SCH (21:07)
[2021-07-08] MEDS: [UNRECOGNIZED DRUG - OTHER] PEG SCH (21:07)
[2021-07-08] MEDS: LORazepam 1 MG TAB PO PRN (22:46)
[2021-07-09] MEDS: ONDANSETRON INJ 2 MG/ML 2 ML VIAL IV PRN (04:05)
[2021-07-09] MEDS ORDERED: BISMUTH SUBSALICYLATE SUSP NG STA (05:13)
[2021-07-09 05:56] LABS: Hematocrit (blood only) 30.1 % (42-52); Hemoglobin 8.8 g/dL (14.0-18.0); Immature Granulocytes # (auto) 0.05 K/uL (0.00-0.02); Immature Granulocytes % (auto) 0.3 %; Lymphocytes # (auto) 1.05 K/uL (1.2-3.4); Lymphocytes % (auto) 6.9 %; Mean Corpuscular Hemoglobin 24.9 pg (25-34); Mean Corpuscular Hgb Conc 29.2 g/dL (32-36); Mean Corpuscular Volume 85.3 fL (80-100); Mean Platelet Volume 9.8 fL (7.4-10.4); Monocytes # (auto) 0.47 K/uL (0.11-0.59); Monocytes % (auto) 3.1 %; Neutrophils # (auto) 13.63 K/uL (1.4-6.5); Neutrophils % (auto) 89.7 %; Platelet Count 403 K/uL (130-400); RDW Coefficient of Variation 19.1 % (11.5-14.5); Red Blood Count 3.53 M/uL (4.7-6.1)
[2021-07-09 06:38] LABS: Albumin Level 2.4 gm/dl (3.4-5.0); BUN Creatinine Ratio 63.9 (10-20); Calcium 10.1 mg/dl (8.5-10.1); Est GFR (African American) 118.1 ml/min; Est GFR (Non-African American) 101.9 ml/min; Potassium 3.8 mmol/L (3.5-5.1)
[2021-07-09 06:40] LABS: Albumin Globulin Ratio 0.5 (0.9-2); Bilirubin,Total 0.2 mg/dl (0.2-1); Globulin 4.7 gm/dl (2.5-4.0); Total Protein 7.1 gm/dl (6.4-8.2)
[2021-07-09] MEDS: ALBUT/IPRATROP 3MG/0.5MG NEB 3 ML VIAL NEB SCH (07:04)
[2021-07-09] MEDS ORDERED: ONDANSETRON INJ 2 MG/ML 2 ML VIAL IV STA (08:25)
[2021-07-09] MEDS ORDERED: BISMUTH SUBSALICYLATE SUSP PO PRN (08:25)
--- NOTE | 2021-07-09 08:32 | Hospitalist Progress Note ---
Date of Service July 09, 2021 Assessment & Plan (1) Acute exacerbation of chronic obstructive airways disease: Plan: Luis is a 71-year-old male with a history of COPD on 6L at home, lung cancer status post lobectomy complicated by radiation fibrosis of lung, supraglottic cancer, PEG placement, ongoing home hospice care, carotid stenosis, insomnia, anxiety, chronic low back pain, and hypothyroidism who presented for worsening shortness of breath in context of outpatient treatment failure for multifocal pneumonia. [id number] Hypoxic/Hypercapnic Respiratory Failure - secondary to PNA, pos sible component of COPD exacerbation - In context of recent outpatient treatment for the same with prednisone and amoxicillin x 7d and known history of COPD, lung cancer s/p lobectomy and radiation fibrosis, and supraglottic cance - Work-up as follows: - CXR: demonstrating LLL PNA - Leukocytosis (>20) with left shift on admission -- improved throughout admission - COVID, Influenza A/B negative - MRSA nare: negative - Sputum GS/CX: Moderate WBCs, few GPCs, culture - normal respiratory dionne - On Zosyn during early course --> transitioned to Levaquin initially, but poorly tolerated - Transitioned to Augmentin / Azithromycin, end 07/14 or later p.r.n. - Transitioned to prednisone taper (40mg x 2d --> 30mg x 2d --> 20mg x 2d --> home dose of 15mg daily), end 07/13 - DuoNeb PRN Nausea - Over 07/08-07/09, increasing nausea without vomiting, relieved by Zofran/Pepto - Concern this may be related to Levaquin given alignment with course - Zofran q6h PRN, Pepto q6h PRN - KUB obtained: small-moderate stool burden --> will trial MiraLax too, suspect mild abdominal distention is likely intensifying nausea - Transition to Augmentin/Azithro as above Supraglottic Cancer - Follows with Dr. Oreilly of H/O. Has been receiving home hospice. - Palliative care consulted: transition back to hospice after d/c, code status updated, pain control as below - Patient with known chronic history of mild hemoptysis secondary to the same Chronic Pain Syndrome - Palliative aiding in management of medications in setting of hospice care - Continue fentanyl patch (increased to 75mg TD q3d) - Roxanol 10mg PO q6h at d/c -- avoid IV analgesia if able given hospice situation/home planning G-Tube Feedings - Continue Nutren tube feedings Hypothyroidism - Continue home levothyroxine Anxiety / Insomnia - Continue p.r.n. lorazepam - Continue mirtazapine, buspirone HTN - Continue Losartan Code Status: DNR/DNI Diet: Continue Nutren PPX: pLov Dispo: PCU -- home to hospice following d/c (2) Multifocal pneumonia: (3) Chronic pain syndrome: (4) Iron deficiency anemia: (5) Lung nodules: (6) Radiation fibrosis of lung: (7) COPD (chronic obstructive pulmonary disease): (8) Carotid stenosis: (9) S/P lobectomy of lung: (10) Renal cyst: (11) Presence of externally removable percutaneous endoscopic gastrostomy (PEG) tube: (12) Unspecified essential hypertension: (13) Coronary atherosclerosis of [place] coronary vessel: Admission and Anticipated Discharge Date Admission Date: July 06, 2021 Supervising Physician Co-Signing Physician Notes I also saw the patient with the resident physician and confirmed abebe portions of the history and physical examination. I agree with the impression and plan as noted in the resident documentation. Exam 138/67, 80, 20 Upon our exam this morning, the patient complains of generalized abdominal discomfort and nausea. He did have a bout or 2 of nausea beginning yesterday evening and continuing overnight. He had about 2 episodes of loose stool last evening. His respiratory status seems to be about his baseline. Data WBC 15.2, hemoglobin 8.8, platelet count 403 BUN 39, creatinine 0.61 Chest x-ray this morning shows persistent left lower lobe alveolar opacity along with left lower lobe and lingular atelectasis A KUB dated today shows no evidence for bowel obstruction, small to moderate mount of well formed stool within the colon. Blood cultures dated 07/06/2021 no growth. Sputum collection Gram stain from 07/07/2021 shows moderate WBCs, moderate epithelial cells, and a few gram-positive cocci, culture shows light normal dionne Assessment and plan Sepsis POA, 3/4 SIRS criteria, sofa = 3 Possible gram-negative HCAP with acute hypoxic/hypercapnic respiratory failure Question if GI issues yesterday related to oral Levaquin, so will switch to Augmentin/azithromycin Schedule Roxanol Supraglottic cancer Had been on home hospice prior to this admission PT/OT, primarily for recommendation for assistive ambulatory device Appreciate palliative care input Plan is to return home on hospice Additional per resident documentation Subjective Patient did report several bouts of nausea beginning yesterday evening and continuing overnight. Also noted he had ~2 episodes of diarrhea, last at 2000 last evening by his account. Says that he has not vomited. Appetite not great in the context of all of this. Denies any chest pain. Shortness of breath and coughing unchanged and back at baseline. Says that Zofran and Pepto work well for his nausea. Review of Systems Review of Systems: as per HPI Physical Exam Physical Exam: General: Tired-appearing 71-year-old gentleman lying back in his hospital bed, relaxed upon my arrival. In mild distress secondary to nausea. HEENT: NCAT. Eyes - Sclera are white, anicteric, and without injection. Cardiac: Normal rate and regular rhythm; S1 and S2 present with no murmurs, rubs, or gallops. Pulmonary: NC in place. No use of accessory muscles. No conversational dyspnea. Diminished breath sounds throughout but largely clear today on exam. Abdominal: Normoactive bowel sounds. Abdomen felt mildly distended, also mildly TTP. No rebound or guarding. Extremities: Upper and lower extremities are warm and well perfused. Results & Data Results & Data ([facility]) Vital Signs (Past 12 Hours) Vital Signs Temp Pulse Resp BP Pulse Ox Pulse Ox 07/09/21 07:58 36.7 C 88 19 165/84 H 97 07/09/21 07:05 84 18 100 07/09/21 04:00 36.9 C 96 H 25 H 177/95 H 100 07/09/21 00:00 36.8 C 94 H 20 149/73 H 100 07/08/21 23:00 100 Resident Activity Tracking Resident Involvement: Resident Care Provided Care Provided: Adult Hospital Medicine (1) Coronary atherosclerosis of [place] coronary vessel Associated angina: without angina [place] vs. transplanted heart: [place] heart Qualified Code(s): I25.10 - Atherosclerotic heart disease of [place] coronary artery without angina pectoris (2) COPD (chronic obstructive pulmonary disease) COPD type: unspecified COPD Qualified Code(s): J44.9 - Chronic obstructive pulmonary disease, unspecified
--- NOTE | 2021-07-09 09:59 | XRay Report ---
KUB HISTORY: Generalized abdominal pain. COMPARISON: KUB 03/31/2021. FINDINGS: The bowel gas pattern is unremarkable. There are no dilated loops of small bowel to suggest an obstruction. No renal calculi. No ureteral calculi. Calcifications in the deep pelvis likely rep resent phleboliths. A gastrostomy tube overlies the stomach. This is unchanged in position. Degenerat joslyn changes again noted within the lower lumbar spine. Small to moderate amount of well-formed stool seen throughout the colon. No pneumoperitoneum or pneumatosis. IMPRESSION: 1. No evidence for bowel obstruction. 2. Small to moderate amount of well-formed stool seen within the colon. 3. A gastrostomy tube overlies the stomach. ACT 112: Negative or not required by law. Electronically signed by: Gonzalo Lima M.D. 07/09/2021 9:58 AM
[2021-07-09] MEDS ORDERED: ALBUT/IPRATROP 3MG/0.5MG NEB 3 ML VIAL NEB PRN (11:04)
[2021-07-09] MEDS: LORazepam 1 MG TAB PO PRN (11:34)
[2021-07-09] MEDS: CHECK fentaNYL PATCH PLACEMENT SCH ×3 (12:30→23:45)
[2021-07-09] MEDS: LEVOTHYROXINE SODIUM 137 MCG TABLET PO SCH (12:30)
[2021-07-09] MEDS: ENTERAL NUTRITION FORMULA PEG SCH ×2 (12:31→23:45)
[2021-07-09] MEDS: AZITHROMYCIN 250 MG TAB PO SCH (12:31)
[2021-07-09] MEDS: busPIRone 5 MG TAB PEG SCH ×2 (12:31→20:47)
[2021-07-09] MEDS: TUBE FEEDING WATER FLUSH GT SCH ×4 (12:31→21:24)
[2021-07-09] MEDS: [UNRECOGNIZED DRUG - OTHER] PEG SCH ×2 (12:31→23:45)
[2021-07-09] MEDS: AMOXICILLIN/CLAVULANATE 875 MG TAB PO SCH ×2 (12:31→17:40)
[2021-07-09] MEDS: ENOXAPARIN INJ 40 MG/0.4 ML SYR SQ SCH (12:31)
[2021-07-09] MEDS: predniSONE 20 MG TAB PO SCH (12:32)
[2021-07-09] MEDS: LOSARTAN POTASSIUM 25 MG TAB PEG SCH (12:32)
[2021-07-09] MEDS: FERROUS SULFATE ELIX 220MG/5ML PEG SCH (12:32)
[2021-07-09] MEDS: guaiFENesin SUGAR FREE 200 MG/10 ML UDC GT SCH ×2 (12:32→20:50)
[2021-07-09] MEDS: POTASSIUM CHLORIDE 20 MEQ/15 ML UDC PEG SCH (12:32)
[2021-07-09] MEDS ORDERED: ACETAMINOPHEN 1,000 MG/100 ML VIAL IV STA (12:33)
[2021-07-09] MEDS ORDERED: FAMOTIDINE 20 MG in SYRINGE 3 ML IV ONE (13:00)
[2021-07-09] MEDS: POLYETHYLENE (MIRALAX) 17 GM PACK PO SCH (13:02)
[2021-07-09] MEDS: MoRPHine SULFATE 10 MG/0.5 ML UDP PO PRN ×2 (13:03→20:18)
--- NOTE | 2021-07-09 13:08 | XRay Report ---
XR chest 1V portable CLINICAL HISTORY: left lower rib pain + PNA f/u. COMPARISON STUDY: 07/06/2021 TECHNIQUE: 1 view of the chest FINDINGS: Single frontal view of the chest demonstrates the cardiomediastinal silhouette to be within normal li mits. Compared to previous examination, persistent left lower lobe alveolar opacity, left lower lobe atelectasis/collapse and lingular atelectasis are again seen. The remainder of the lungs are clear. T here is no evidence for pleural effusion. There is no evidence for vascular congestion. There is no a cute osseous pathology. IMPRESSION: Persistent left lower lobe alveolar opacity along with left lower lobe and lingular atele ctasis. ACT 112: Negative or not required by law. Electronically signed by: Guillermo Tao M.D. 07/09/2021 1:07 PM
[2021-07-10] MEDS ORDERED: hydrALAZINE HCL 20 MG/ML VIAL IV ONE (00:21)
[2021-07-10] MEDS: LORazepam 1 MG TAB PO PRN (00:53)
[2021-07-10] MEDS ORDERED: MoRPHine SULFATE 2 MG/ML CARP IV STA ×2 (02:44→03:09)
[2021-07-10] MEDS ORDERED: MoRPHine SULFATE 2 MG/ML CARP ONE (02:47)
[2021-07-10] MEDS ORDERED: ALBUT/IPRATROP 3MG/0.5MG NEB 3 ML VIAL NEB STA (03:09)
--- NOTE | 2021-07-10 03:31 | Communication Note ---
Date of Service: July 10, 2021 Asked to evaluate patient for concerns of worsening SOB, increased oxygen demand, and tachycardia. EKG ordered showed primarily sinus tach. Patient noted that he felt as though he could "not take a full breath." Patient currently oxygenating in 95-98 while on non-rebreather at 15. Patient given initially 2mg IV morphine for air hunger, and then a second 2mg for total 4mg IV morphine. He notes that with the morphine he feels significantly better. On exam, patient is noted to have b/l wheezing worse on the L. Breathing treatment was ordered. CXR ordered showing mild worsening of densities in the L lung field, but relatively unchanged. -Will continue to monitor patient throughout the night -Would like to avoid bipap if possible, and as his air hunger has ceased will attempt with lowering oxygen requirements Resident Activity Tracking Resident Involvement: Resident Care Provided and Calender Supervisor Coverage Note Care Provided: Adult Hospital Medicine
[2021-07-10] MEDS: LEVOTHYROXINE SODIUM 137 MCG TABLET PO SCH (05:44)
--- NOTE | 2021-07-10 07:12 | Hospitalist Progress Note ---
Date of Service July 10, 2021 Assessment & Plan (1) Acute exacerbation of chronic obstructive airways disease: Plan: Luis is a 71-year-old male with a history of COPD on 6L at home, lung cancer status post lobectomy complicated by radiation fibrosis of lung, supraglottic cancer, PEG placement, ongoing home hospice care, carotid stenosis, insomnia, anxiety, chronic low back pain, and hypothyroidism who presented for worsening shortness of breath in context of outpatient treatment failure for multifocal pneumonia. [id number]-[id number] Hypoxic/Hypercapnic Respiratory Failure - secondary to PNA, pos sible component of COPD exacerbation Suspected Sepsis Secondary to LLL PNA - In context of recent outpatient treatment for the same with prednisone and amoxicillin x 7d and known history of COPD, lung cancer s/p lobectomy and radiation fibrosis, and supraglottic cance - Work-up as follows: - CXR: demonstrating LLL PNA - Leukocytosis (>20) with left shift on admission -- improved throughout admission - COVID, Influenza A/B negative - MRSA nare: negative - Sputum GS/CX: Moderate WBCs, few GPCs, culture - normal respiratory dionne - On Zosyn during early course --> transitioned to Levaquin initially, but poorly tolerated - Transitioned to Augmentin / Azithromycin, end 07/14 or later p.r.n. - Transitioned to prednisone taper (40mg x 2d --> 30mg x 2d --> 20mg x 2d --> home dose of 15mg daily), end 07/13 - Albuterol, DuoNeb p.r.n. -- JOCELYN Roxonol while here, further education provided: can transition to q4h p.r.n. -- Add Tylenol 1g q8h [facility] Nausea - Over 07/08-07/09, increasing nausea without vomiting, relieved by Zofran/Pepto - Concern this may be related to Levaquin given alignment with course - Zofran q6h PRN, Pepto q6h PRN - KUB obtained: small-moderate stool burden --> will trial MiraLax too, suspect mild abdominal distention is likely intensifying nausea - Transition to Augmentin/Azithro as above Supraglottic Cancer - Follows with Dr. Oreilly of H/O. Has been receiving home hospice. - Palliative care consulted: transition back to hospice after d/c, code status updated, pain control as below - Patient with known chronic history of mild hemoptysis secondary to the same Chronic Pain Syndrome - Palliative aiding in management of medications in setting of hospice care - Continue fentanyl patch (increased to 75mg TD q3d) - Roxanol 10mg PO q6h at d/c -- avoid IV analgesia if able given hospice situation/home planning G-Tube Feedings - Continue Nutren tube feedings Hypothyroidism - Continue home levothyroxine Anxiety / Insomnia - Continue p.r.n. lorazepam - Continue mirtazapine, buspirone HTN - Continue Losartan Code Status: DNR/DNI Diet: Continue Nutren PPX: pLov Dispo: PCU -- home to hospice following d/c (2) Multifocal pneumonia: (3) Chronic pain syndrome: (4) Iron deficiency anemia: (5) Lung nodules: (6) Radiation fibrosis of lung: (7) COPD (chronic obstructive pulmonary disease): (8) Carotid stenosis: (9) S/P lobectomy of lung: (10) Renal cyst: (11) Presence of externally removable percutaneous endoscopic gastrostomy (PEG) tube: (12) Unspecified essential hypertension: (13) Coronary atherosclerosis of [place] coronary vessel: Admission and Anticipated Discharge Date Admission Date: July 06, 2021 Subjective Overnight, patient reported increasing SOB. Night provider assessed, found increased wheezes bilaterally, predominantly on the left. Given 4mg morphine IV total with significant relief thereafter. CXR essentially unchanged. ECG without overt signs of ischemia. Received one dose of Roxonol 10mg at 2000 overnight. Review of Systems Review of Systems: as per HPI Physical Exam Physical Exam: General: Tired-appearing 71-year-old gentleman lying back in his hospital bed, relaxed upon my arrival. In mild distress secondary to nausea. HEENT: NCAT. Eyes - Sclera are white, anicteric, and without injection. Cardiac: Normal rate and regular rhythm; S1 and S2 present with no murmurs, rubs, or gallops. Pulmonary: NC in place. No use of accessory muscles. No conversational dys pnea. Diminished breath sounds throughout but largely clear today on exam. Abdominal: Normoactive bowel sounds. Abdomen felt mildly distended, also mildly TTP. No rebound or guarding. Extremities: Upper and lower extremities are warm and well perfused. Results & Data Results & Data ([facility]) Vital Signs (Past 12 Hours) Vital Signs Temp Pulse Pulse Resp BP BP Pulse Ox 07/10/21 03:16 120 H 24 100 07/10/21 01:37 110 H 22 94 07/10/21 01:30 156/81 H 07/10/21 00:04 36.8 C 95 H 18 192/99 H 98 07/09/21 23:00 07/09/21 19:49 37.3 C 99 H 25 H 178/94 H 100 Pulse Ox 07/10/21 03:16 07/10/21 01:37 07/10/21 01:30 07/10/21 00:04 07/09/21 23:00 98 07/09/21 19:49 Resident Activity Tracking Resident Involvement: Resident Care Provided Care Provided: Adult Hospital Medicine (1) Coronary atherosclerosis of [place] coronary vessel Associated angina: without angina [place] vs. transplanted heart: [place] heart Qualified Code(s): I25.10 - Atherosclerotic heart disease of [place] coronary artery without angina pectoris (2) COPD (chronic obstructive pulmonary disease) COPD type: unspecified COPD Qualified Code(s): J44.9 - Chronic obstructive pulmonary disease, unspecified
[2021-07-10] MEDS: MoRPHine SULFATE 10 MG/0.5 ML UDP PO SCH ×3 (07:13→18:28)
[2021-07-10] MEDS: CHECK fentaNYL PATCH PLACEMENT SCH ×2 (07:14→16:04)
[2021-07-10] MEDS: ONDANSETRON INJ 2 MG/ML 2 ML VIAL IV PRN (07:20)
[2021-07-10 07:24] VITALS: BP 161/95; TEMP 98.8
[2021-07-10] MEDS: POLYETHYLENE (MIRALAX) 17 GM PACK PO SCH (07:28)
[2021-07-10] MEDS: guaiFENesin SUGAR FREE 200 MG/10 ML UDC GT SCH (07:31)
[2021-07-10] MEDS: FERROUS SULFATE ELIX 220MG/5ML PEG SCH (07:32)
[2021-07-10] MEDS: busPIRone 5 MG TAB PEG SCH (07:32)
[2021-07-10] MEDS: predniSONE 20 MG TAB PO SCH (07:32)
[2021-07-10] MEDS: AZITHROMYCIN 250 MG TAB PO SCH (07:33)
[2021-07-10] MEDS: LOSARTAN POTASSIUM 25 MG TAB PEG SCH (07:34)
[2021-07-10] MEDS: AMOXICILLIN/CLAVULANATE 875 MG TAB PO SCH ×2 (07:34→17:49)
[2021-07-10] MEDS: ENOXAPARIN INJ 40 MG/0.4 ML SYR SQ SCH (07:35)
[2021-07-10] MEDS: ENTERAL NUTRITION FORMULA PEG SCH (07:36)
[2021-07-10] MEDS: TUBE FEEDING WATER FLUSH GT SCH ×3 (07:36→17:46)
[2021-07-10] MEDS: [UNRECOGNIZED DRUG - OTHER] PEG SCH (07:36)
[2021-07-10] MEDS: POTASSIUM CHLORIDE 20 MEQ/15 ML UDC PEG SCH (07:37)
--- NOTE | 2021-07-10 07:51 | XRay Report ---
SINGLE VIEW CHEST CLINICAL HISTORY: Dyspnea. COPD. FINDINGS: An AP, portable, upright chest radiograph is compared to study dated 07/09/2021 and correlat ed with chest CT dated 12/27/2020. The examination is degraded by portable technique and apical lordot ic positioning. The heart is mildly enlarged noting atherosclerotic calcification of the thoracic aor ta. Enlargement of the central pulmonary arteries suggests pulmonary artery hypertension. Advanced em physema and chronic interstitial thickening are similar to previous. Foci of parenchyma scarring are again seen throughout both lungs. Right perihilar and left lower lobe irregular airspace opacities ar e similar to previous. A 3.4 cm pulmonary nodule/mass is again seen in the right lower lobe. Question superimposed airspace consolidation at the left lung base. Trace pleural effusions are noted. No pne umothorax is seen. The skeletal structures are osteopenic. The bony thorax is grossly intact. Fusion hardware is noted in the lower cervical spine. IMPRESSION: 1. Cardiomegaly, advanced emphysema, and chronic parenchymal changes/opacities as above. These were b mirza assessed on prior chest CT scans 2. Question superimposed airspace consolidation at the left lung base. 3. Small pleural effusions. 4. A 3.4 cm pulmonary nodule/mass is again seen in the superior segment of the right lower lobe. ACT 112: Negative or not required by law. Electronically signed by: Alex Taylor M.D. 07/10/2021 7:50 AM
[2021-07-10] MEDS: ALBUTEROL HFA 8 GM INHALER INH SCH ×3 (08:19→19:21)
[2021-07-10] MEDS ORDERED: predniSONE 10 MG TABLET PO SCH (09:00)
[2021-07-10] MEDS ORDERED: ACETAMINOPHEN SUSP 1000 MG/31.2 ML UDP PO PRN (09:38)
[2021-07-10] MEDS ORDERED: ACETAMINOPHEN SUSP 1000 MG/31.2 ML UDP PO SCH (10:00)
[2021-07-10 12:20] VITALS: O2SAT 94
[2021-07-10] MEDS: fentaNYL 75 MCG/HR TDSY TD SCH (13:38)
--- NOTE | 2021-07-10 14:23 | Electrocardiogram Report ---
Test Reason : Blood Pressure : / mmHG Vent. Rate : 124 BPM Atrial Rate : 124 BPM P-R Int : 130 ms QRS Dur : 096 ms QT Int : 318 ms P-R-T Axes : -04 -17 025 degrees QTc Int : 456 ms Sinus tachycardia with Premature atrial complexes with Aberrant conduction Otherwise normal ECG When compared with ECG of 06-JUL-2021 18:21, Aberrant conduction is now Present Right bundle branch block is no longer Present Criteria for Inferior infarct are no longer Present Confirmed by Bay Christianson ([id number]) on 07/10/2021 2:22:33 PM Referred By: REFERRED SELF Confirmed By:Contreras Christianson
--- NOTE | 2021-07-10 14:29 | Discharge Summary ---
Date of Service July 10, 2021 Admission HPI Per Admitting Provider The patient is a 71-year-old male with a past medical history including multifocal pneumonia, end-of-life care, iron deficiency anemia, peripheral neuropathy, chronic hypoxemic respiratory failure, lung nodules, PEG tube feedings, COPD, radiation fibrosis of lung, lung cancer, carotid stenosis, status post lung lobectomy, insomnia, anxiety, cancer of the supraglottis, cervical spinal stenosis, chronic low back pain and hypothyroidism. Patient presents with symptoms as noted above. Chest x-ray showed left lower lobe pneumonia Abnormal laboratories: WBC 23.96, hemoglobin 10.4, hematocrit 35.6, platelets 561, albumin 2.9 Patient was COVID-19 negative and flu A and B negative From the ED patient received: Zosyn 4.5 g IV, Solu-Medrol 125 mg IV, and furosemide 40 mg IV. Admission Exam Per Admitting Provider The patient is awake, alert and oriented 3, comfortable on BiPAP, normocephalic and atraumatic. HEENT--PERRL, EOMI, mucous membranes and oropharynx dry. Neck--supple. No JVD. No bruits. Thyroid normal, trachea midline, no adenopathy. Heart--normal S1 and S2. No murmurs, rubs or gallops. Lungs-coarse breath sounds worse at left base. No respiratory distress, no accessory muscle use. Abdomen--normal bowel sounds and soft. Nontender. Nondistended Extremities--no cyanosis or clubbing. No edema. Dermatologic--normal skin turgor, normal color, no abnormal lymph nodes, no rash. Neurologic--cranial nerves II through XII grossly intact. Rheumatologic--normal range of motion. Psychiatric--normal affect. Principal Diagnosis [id number] Hypoxic/Hypercapnic Respiratory Failure Suspected Sepsis Secondary to LLL PNA Supraglottic Cancer Discharge Exam General: Tired-appearing 71-year-old gentleman lying back in his hospital bed, relaxed upon my arrival.NAD. HEENT: NCAT. Eyes - Sclera are white, anicteric, and without injection. Cardiac/Thorax: Normal rate and regular rhythm; S1 and S2 present with no murmurs, rubs, or gallops. Mild TTP of LEFT lateral ribcage, midaxillary line. Pulmonary: NC in place. No use of accessory muscles. No conversational dyspnea. Diminished breath sounds throughout but largely clear today on exam. Abdominal: Normoactive bowel sounds. Abdomen soft, nontender, and nondistended on exam. Extremities: Upper and lower extremities are warm and well perfused. Discharge Data Allergies Allergy/AdvReac Type Severity Reaction Status Date / Time NSAIDS (Non-Steroidal AdvReac Mild upset Verified 07/06/21 18:44 Anti-Inflamma stomach Consultations 07/06/21 19:08 ED Decision to Admit Stat 07/07/21 12:06 Consult Palliative Care Routine -- VEE Ashton, excerpted A&P: "I met with Luis in room 109. He was sitting upright on 6 L humidified nasal canula, later was placed on Bipap as he has tolerated yesterday. Confirmed his code status to be DNR/DNI with a goal to return home with hospice. He does have a goal to return home with hospice support and talked about his significant other, Jessica, and how important she is to him. He was satisfied with [facility] services, but appears that they need to find a good balance of visit and encounters that would work for him. See below for pain assessment and discussion. Case management aware that patient wants to return home with hospice. (2) Abdominal pain: Plan: Patient describes constant 5/10 pain that radiates across his stomach and up his right shoulder into his shoulder blade. As previously mentioned, an acceptable level of pain that he can tolerate. He said that he would accept a pain level of 3 or 4. Patient tolerating the fentanyl patch increase to 75 mcg. Patient had utilized FOUR doses of IV Morphine over the past 24 hours. If the goal is to return home, discussed discontinuing IV opiates to focus on oral regimen control, which he voiced being comfortable with that plan. He typically has used Roxicodone 10 mg PO Q4 PRN through his G-tube, relatively routinely every 4 hours, but has not utilized any while here in the hospital. Discussed in detail transitioning him to Roxanol for additional pain management, which he was receptive to based on Hospice formulary list. Will order Roxanol 10 mg Q6 PRN for air hunger/pain. Discussed appropriate use of these medications. We discussed the appropriate use and disposal of Fentanyl patches again and reiterated the importance of strict medication compliance, even with Hospice to ensure adequate and appropriate pain control. We discussed that since he will be returning home with hospice, that in order for them to provide him with the best quality of life and pain management, they will need to establish visits to ensure his symptoms and pain are managed well. He verbalized understanding and adherence to that plan. I discussed his care in detail with Guerrero Sloan, hospice liason with [facility] who plans to see this individual prior to his discharge tomorrow 07/09. (3) Anxiety: Plan: He has Ativan 1 mg PO BID PRN for anxiety. He has not used any dosing here. Some emotional pain associated with his diagnoses. Consider routine dosing of Ativan at a lesser dose." Hospital Course (1) Acute exacerbation of chronic obstructive airways disease: Luis is a 71-year-old male with a history of COPD on 6L at home, lung cancer status post lobectomy complicated by radiation fibrosis of lung, supraglottic cancer, PEG placement, ongoing home hospice care, carotid stenosis, insomnia, anxiety, chronic low back pain, and hypothyroidism who presented for worsening shortness of breath in context of outpatient treatment failure for suspected sepsis secondary to LLL PNA. During his course, he developed [id number]-[id number] hypoxic/hypercapnic respiratory failure. He recovered from this fast, and required further education about hospice and his medicines prior to his discharge. He is being discharged to home hospice. Kkctk-[id number] Hypoxic/Hypercapnic Respiratory Failure - secondary to PNA Suspected Sepsis Secondary to LLL PNA - In context of recent outpatient treatment for the same with prednisone and amoxicillin x 7d and known history of COPD, lung cancer s/p lobectomy and radiation fibrosis, and supraglottic cance - Work-up as follows: - (multiple) CXR: demonstrating LLL opacities, c/f PNA - Leukocytosis (>20) with left shift on admission - COVID, Influenza A/B negative - MRSA nare: NEGATIVE. - Sputum GS/CX: Moderate WBCs, few GPCs, culture - normal respiratory dionne - On Zosyn during early course --> transitioned to Levaquin initially, but poorly tolerated - Transitioned to Augmentin at time of discharge. Continue until 07/14 or longer if indicated. - Prednisone taper (40mg x 2d --> 30mg x 2d --> 20mg x 2d --> home dose of 15mg daily), end 07/13 - Morphine 10mg (in 0.5mL) q6h PRN for air hunger, pain at time of discharge Nausea - Over 07/08-07/09, increasing nausea without vomiting, relieved by Zofran/Pepto - KUB obtained: small-moderate stool burden - Suspect secondary to Levaquin -- discontinued and transitioned to Augmentin/Azithro Diarrhea - Developed diarrhea 07/09 after initiation of PO antibiotics, suspect secondary to the same - Lower suspicion for C. diff given frequency of BMs, subsequent relief with feedings 07/10 - Discontinue azithromycin at discharge to ease antibiotic burden - Can consider adding probiotics as outpatient if ongoing Supraglottic Cancer / Chronic Pain Syndrome - Follows with Dr. rOeilly of H/O. Has been receiving home hospice. - Palliative care consulted: aided with analgesic adjustments, transitioned back to hospice after d/c, aided with clarification of code status (DNR/DNI) -- Roxanol (10mg in 0.5mL) q6h PRN for air hunger / pain -- Fentanyl TD 75 mcg q72h -- Can consider Ativan 1mg PO b.i.d. for anxiety at home -- did not require here -- Provided education re: goals of hospice, medications above, prognosis - Can also consider acetaminophen 1g t.i.d. (suspension) at time of discharge if needed G-Tube Feedings - Continue Nutren tube feedings with sterile water flushes at home Hypothyroidism - Continue home levothyroxine Anxiety / Insomnia - Continue p.r.n. lorazepam - Continue mirtazapine, buspirone HTN - Continue Losartan Code Status: DNR/DNI Dispo: home hospice (2) Multifocal pneumonia: (3) Chronic pain syndrome: (4) Iron deficiency anemia: (5) Lung nodules: (6) Radiation fibrosis of lung: (7) COPD (chronic obstructive pulmonary disease): (8) Carotid stenosis: (9) S/P lobectomy of lung: (10) Renal cyst: (11) Presence of externally removable percutaneous endoscopic gastrostomy (PEG) tube: (12) Unspecified essential hypertension: (13) Coronary atherosclerosis of [place] coronary vessel: Total Time Total Time Spent Total Time Spent (In Minutes): 30 Discharge Plan Discharge Items Patient Disposition: Hospice - Home Reason For Visit: ACUTE RESP FAILURE WITH HYPOXIA, PNEUMONIA Discharge Diagnosis: bqhhx-tv-bnuohvl hypoxic/hypercapnic respiratory failure LLL pneumonia Activity: Per Instructions section Lifting: None Non-emergency contact: Primary Care Provider and Specialist Call non-emergency contact if: you have any medication questions, your symptoms worsen, your pain is not controlled and your pain is worsening Follow-up/Referrals: Chapito Milner DO [Primary Care Provider] - 07/17/21 11:30 am Diet: Other - See Diet Comment Diet Comment: liquids as tolerated, comfort; tube feeds otherwise Addtl Attending Provider Instructions: You were seen at [facility] for shortness of breath. After undergoing several imaging and lab tests, the cause of your shortness of breath is thought to be due to a mild pneumonia. You were treated with antibiotics and steroids. Given your history of COPD, this was also treated in the context of your pneumonia, too. During your stay here, you were also seen by our palliative care team. Together, you discussed the role of hospice at home and the various forms/indications for certain medications -- such as Roxanol and Fentanyl patches. As you may recall, you can continue to use Roxanol (oral form of morphine) to help with both "air hunger" (sensation of not getting enough air) as well as pain. You may take up to Roxanol 0.5 mL (equivalent to 10mg) every 6 hours as needed; you may want to discuss scheduling this with your hospice team. Further, you can continue using your fentanyl patches to help with your chronic pain -- change these every 3 days (72 hours). Keep in mind that you may also use your nebulizer for shortness of breath AND Tylenol (up to 1000mg every 8 hours) to help with pain. You will be discharged home with aid from [facility]. They will visit you in the home on 07/11. Please continue to work with their team in addressing needs for pain and air hunger, and other goals that you and your family have moving forward. At discharge, please note the following medication changes/additions/deletions: -- START Augmentin, twice daily (every 12 hours), for the next 4 days via your G-tube (these can be crushed) -- START prednisone, and note the following taper (via G-tube - can be crushed): > Days 1 and 2 after discharge (beginning 07/11): Take 30mg daily > Days 3 and 4: Take 20mg daily > Day 5 onward: Continue your home prednisone dosing -- START Roxanol 0.5 mL (equivalent to 10mg) every 6 hours as needed for pain -- START Fentanyl patch 75mcg, changed every 3 days -- STOP oxycodone until you discuss this with your hospice team. It has been a pleasure for caring for you while here. In the interim, if you are experiencing worsening pain/air hunger, please discuss with your hospice team potential changes to your regimen. We wish you all the best moving forward. Pending Studies at Discharge: No Stand-Alone Forms: My [facility] Medications and DC Order Prescriptions: New prednisone 10 mg tablet See Rx Instructions .ROUTE .COMPLEX Qty: 10 RF: 0 amoxicillin-pot clavulanate [Augmentin] 875-125 mg tablet 1 tab PO BID 4 Days Qty: 8 RF: 0 morphine concentrate 100 mg/5 mL (20 mg/mL) solution 10 mg PO Q6H PRN (Reason: pain) Qty: 30 RF: 0 fentanyl 75 mcg/hr patch 72 hour 1 patch transdermal Q72H Qty: 5 RF: 0 morphine concentrate 100 mg/5 mL (20 mg/mL) solution 10 mg PO Q6H Qty: 30 RF: 0 fentanyl 75 mcg/hr patch 72 hour 1 patch transdermal Q72H Qty: 5 RF: 0 Continued mirtazapine 45 mg tablet 45 mg feeding tube HS Qty: 90 RF: 3 losartan 25 mg tablet 25 mg feeding tube DAILY Qty: 90 RF: 3 Mucinex Fast-Max Lupj-Mhe-Tnxp 10-20-650 mg/20 mL liquid 15 ml feeding tube DAILY Qty: 473 RF: 2 ferrous sulfate 220 mg (44 mg iron)/5 mL elixir 220 mg feeding tube DAILY Qty: 473 RF: 2 levothyroxine 137 mcg capsule 137 mcg feeding tube DAILY RF: 0 ipratropium-albuterol 0.5 mg-3 mg(2.5 mg base)/3 mL solution for nebulization 3 ml INHALATION Q4H PRN (Reason: Shortness Of Breath) RF: 0 Nutren 2.0 0.08 gram-2 kcal/mL liquid 2 ea Feeding Tube BID RF: 0 loratadine 10 mg tablet 10 mg Feeding Tube DAILY PRN (Reason: Allergic Reaction) RF: 0 gabapentin 300 mg capsule 300 mg Feeding Tube TID RF: 0 potassium chloride 10 mEq tablet extended release 10 meq PO DAILY RF: 0 prednisone 10 mg tablet 10 mg feeding tube DAILY RF: 0 prednisone 5 mg tablet 5 mg feeding tube DAILY RF: 0 lorazepam [Ativan] 1 mg tablet See Rx Instructions .ROUTE .COMPLEX PRN (Reason: Anxiety) RF: 0 Benefiber Sugar Free (dextrin) 3 gram/3.8 gram Powder 3 g PO BID RF: 0 guaifenesin 200 mg tablet 200 mg PO BID PRN (Reason: MUCOUS BUILDUP) RF: 0 buspirone 10 mg tablet 10 mg feeding tube BID RF: 0 Changed (DME) Oxygen Home Liters Per Minute See Rx Instructions .ROUTE .MEDSUPPLY Qty: 1 RF: 0 Discontinued fentanyl 50 mcg/hr patch 72 hour 50 mcg transdermal Q3D RF: 0 azithromycin 250 mg tablet 500 mg feeding tube [id number] RF: 0 oxycodone 5 mg/5 mL solution 15 mg feeding tube Q4H PRN (Reason: Pain) RF: 0 Discharge Orders: Discharge Order (Routine); Ordered 07/10/21 Ordered By: Herrera Wilde/Other Patient Handouts: What Is Hospice?, Hospice The Importance of ... Admission Data Admit Date/Time: 07/06/21 20:35 Attending Provider: Clint Akhtar Admit Provider: Guido Burroughs Primary Care Provider: Chapito Milner Other Providers: Guido Burroughs ; Keisha Hogue Other Interventions: Discharge Summary Assessment (RN) Last Done: 07/10/21 15:59 Supervising Physician Co-Signing Physician Notes I also saw the patient confirmed abebe portions of the history and physical examination. Agree with the impression and plan as noted in the resident documentation. The patient is looking forward to returning home, and will resume home hospice services. Prescriptions for Roxanol 20 mg per 1 mL, 10mg (0.5 mL) p.o. every 6 hours as needed Fentanyl 75 mcg every 72 hours Titration and additional palliative medicines per home hospice Additional per resident documentation Resident Activity Tracking Resident Involvement: Resident Care Provided Care Provided: Adult Hospital Medicine
[2021-07-10 19:24] VITALS: PULSE 83
[2021-07-11] MEDS ORDERED: POTASSIUM CHLORIDE 20MEQ/15ML 473ML PEG SCH (09:00)
[2021-07-12] MEDS ORDERED: predniSONE 20 MG TAB PO SCH (09:00)
== END 2021-07-10 20:35 | disposition hospice, home (50) | DRG 871 ==
LOC: ED 18:17 → EDINP 20:35 → SUATTDRO 20:35 → 1E 07-07 05:08 → 3W 07-10 00:13

== ENCOUNTER 2021-08-05 04:04 | Inpatient (IN) ==
[2021-08-05] MEDS ORDERED: MoRPHine SULFATE 4 MG/ML 1 ML CARP\\VIAL IV STA ×2 (04:17→11:36)
--- NOTE | 2021-08-05 04:23 | Emergency Department Note ---
Impression & Plan Lung cancer, End of life care, Pleural effusion on left, Respiratory failure, Cancer related pain ED Provider Note Name: BARBARA CASTRO Age: 71 Sex: M Arrives Via: Ambulance Informant: ED Provider: Vahe Orellana MD Chief Complaint: Respiratory distress Impression: As per impressions above Medical Decision Making: This is a 71-year-old gentleman with end-stage lung cancer who arrives for evaluation of respiratory distress due to inability to get hospice at home and time. He is on hospice and shortly after arrival hospice nurse did show up. After extensive discussions with and patient it is clear that he does not want to have significant life-prolonging treatments. He is already on CPAP and this was kept on this at 's request as this seemed to be making him comfortable at the moment. He was also given some morphine for his discomfort which she has been having cancer related chest pains. A 1 view chest x-ray confirms a large left pleural effusion/whiteout of lung and some fluid overload of the right lung. I discussed that to try change this would require likely a drain placed in the left lung and the feels that the patient would not want this to be done to him. The plan will be for hospice inpatient care at this [facility] as this seems beyond what the can do at home. This was agreed with the hospice nurse at bedside and case management was integrally involved. Patient was kept comfortable throughout the morning and hospitalist was consulted for further management. Prior Medical Record and Triage/Nursing Notes reviewed by Me Additional history obtained from chart and hospice nurse Differentials:Reactive airway disease, pneumonia, pneumothorax, COPD, CHF, infections, cardiac ischemia, pulmonary embolism, musculoskeletal, gastrointestinal, as well as other pathologies. Vital Signs: reviewed and remarkable for tachypnea hypoxia Interventions: CPAP, morphine 4 mg IV Imagin view chest x-ray reveals whiteout of left lung consistent with large left pleural effusion and some mild fluid overload of the right lung as well Consults:Dr Guerrero MENDEZ Hospitalist Plan: Disposition:Hospitalization. Condition: Critical History of Present Illness:71-year-old gentleman with end-stage lung cancer on hospice arrives for evaluation of worsening respiratory distress. notes that patient was having worsening breathing difficulty throughout the afternoon and evening and gave him his nightly morphine and Ativan. He had worsening altered mental status and difficulty breathing as the night went on and sort of collapsed to the floor. notes his oxygen at home was in the 40s. called the hospice nurse though they were unable to get to the house within the next hour or 2 so they advise she call 911. We have called in 1 who brought patient to the ER patient. Patient was placed on CPAP in route with improvement of his mental status and oxygenation. Patient notes he has some pain in his ribs. notes he has been complaining of pain due to a popped rib on the left lower side. notes that he does not want any heroics or mechanical ventilation to keep him alive. She prefers he have minimal testing. She is agreeable to x-ray. She does feel that the CPAP is helping him and would like this to continue. Given his pain she would like him to be treated with pain medications. does note that he has been dealing with possible pneumonia for which he was on Augmentin for the last 2 weeks and then they switched to azithromycin a few days ago. ROS: See above HPI for pertinent positives & negatives. A total of 10 systems reviewed and were otherwise negative. Past Medical History:See Below Past Surgical History:See Below Family History:See Below Social History:See Below Home Medications:See Below Allergies:See Below Vitals:Blood Pressure: 117/66, Pulse 116, RR 28, T 96C, O2 96% on CPAP Physical Exam: GENERAL: Patient is chronically unwell appearing appearing and in no distress. Nods head to say that he is in pain EYES: No scleral icterus, unremarkable pupils. ENT: Mucous membranes dry, no nasal congestion. NECK: No masses appreciated, nomeningismus, trachea is midline. RESPIRATORY: Diffuse crackles with poor inspiratory effort and difficult to hear sounds on left, slightly improved on right. Appears comfortable on CPAP CHEST: Tenderness to palpation of the left lower lateral ribs where notes he has been having some pain for the last few weeks. CARDIOVASCULAR: Tachy.No murmurs, rubs, gallops appreciated. GASTROINTESTINAL: Abdomen soft, non-tender, no peritonitis.Bowel sounds positive.No masses appreciated. BACK: No midline tenderness, no CVA tenderness EXTREMITIES: Weakly moves all extremities, no cyanosis, bilateral lower leg 2+ edema edema. NEUROLOGIC: Somnolent periodically opens eyes to voice, no acute motor or sensory deficits, no focal weakness, cranial nerves grossly intact. SKIN: No rash, no jaundice, no diaphoresis. ED Course: Times/Reassessments: Patient remains comfortable throughout the morning though quite somnolent is at bedside along with hospice nurse. All questions were answered. Critical Care: I have personally spent 35 minutes of critical care time in the direct management of this patient. Acute respiratory failure requiring CPAP and determination and that this is end-of-life care and no further escalation of care would be done. This was a life/limb threatening event. This 35 minutes is in excess of all separately billable procedures. 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 Radiation completed 02/28/2010 received 7200 cGy Finding of asymmetry of larynx on the right. 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 Radiation completed 02/28/2010 received 7200 cGy Finding of asymmetry of larynx on the right. Plan for laryngoscopy and biopsy 01/27/2017 " Cervical stenosis of spinal canal Chronic hypoxemic respiratory failure Chronic low back pain [facility] COPD (chronic obstructive pulmonary disease) "is on home oxygen" GIB (gastrointestinal bleeding) Hypothyroidism Insomnia Lung cancer (10/04/17) Lung nodules Mass of lower lobe of left lung Multifocal pneumonia Oxygen dependent Palliative care encounter Presence of externally removable percutaneous endoscopic gastrostomy (PEG) tube (~2019) Radiation fibrosis of lung Surgical History H/O cervical spine surgery H/O neck surgery right side Percutaneous endoscopic gastrostomy status S/P lobectomy of lung Family History Other No pertinent family history Denies family history of Ovarian cancer Prostate cancer Breast cancer Lung cancer Colorectal cancer Social History Smoking Status: Former smoker Tobacco Type: Cigarettes Second Hand Exposure: No; Hx Alcohol Use: No Hx Substance Use: No Preferred Language: Botswanan Communication Ability: Effective Visual Impairment: No Limitations Hearing Ability: Normal Club Room Attendant Required: No Beliefs That Will Affect Care: None marital status: Single Current Living Situation: Significant Other Current Living Situation Comment: significant other is caregiver current occupational status: retired Feels Safe at Home: Yes caffeine: No Dental Care, Regularly: Yes Physical Activity Frequency: Does not Exercise Seatbelt Use: always Sunscreen Use: Yes Assistive Devices: Glasses Allergies Allergies Allergy/AdvReac Type Severity Reaction Status Date / Time NSAIDS (Non-Steroidal AdvReac Mild upset Verified 08/05/21 07:41 Anti-Inflamma stomach Home Meds Home Medications Medication Instructions Recorded Confirmed levothyroxine 137 mcg capsule 137 mcg FEEDING TUBE DAILY 05/19/19 07/17/21 ipratropium 0.5 mg-albuterol 3 mg 3 ml INHALATION Q4H PRN ml 01/15/20 07/17/21 (2.5 mg base)/3 mL nebulization soln nutritional supplements 0.08 2 ea FEEDING TUBE BID 03/27/20 07/17/21 gram-2 kcal/mL liquid for tube feed (Nutren 2.0) loratadine 10 mg tablet 10 mg FEEDING TUBE DAILY PRN 05/28/20 07/17/21 potassium chloride 10 mEq 10 meq PO DAILY 03/28/21 07/17/21 tablet,extended release buspirone 10 mg tablet 10 mg FEEDING TUBE BID 07/06/21 07/17/21 wheat dextrin 3 gram/3.8 gram oral 3 g PO BID 07/06/21 07/17/21 powder (Benefiber Sugar Free (dextrin)) fentanyl 75 mcg/hr transdermal 1 patch TRANSDERMAL Q72H 07/16/21 07/17/21 patch bisacodyl 10 mg rectal suppository [address] DAILY PRN 07/17/21 gabapentin 300 mg capsule 300 mg FEEDING TUBE BID cap 07/17/21 07/17/21 guaifenesin 200 mg tablet 200 mg PO BID 07/17/21 07/17/21 lorazepam 2 mg/mL oral concentrate 1 mg PO Q4H PRN ml 07/17/21 07/17/21 morphine concentrate 100 mg/5 mL 10 mg PO Q2H ml 07/17/21 07/17/21 (20 mg/mL) oral solution Previous Rx's Medication Instructions Recorded mirtazapine 45 mg tablet 45 mg FEEDING TUBE HS #90 tab 11/28/20 losartan 25 mg tablet 25 mg FEEDING TUBE DAILY #90 tab 01/27/21 ferrous sulfate 220 mg (44 mg 220 mg FEEDING TUBE DAILY #473 ml 06/25/21 iron)/5 mL oral elixir Oxygen Home #1 ea 07/10/21 Mucinex Fast-Max Gwwq-Rao-Phaase 15 ml FEEDING TUBE DAILY #473 ml NS 07/21/21 10 mg-20 mg-650 mg/20 mL oral liquid (fmhdnmrpv-ED-aeatlctd-guaifen) prednisone 10 mg tablet 15 mg FEEDING TUBE DAILY #30 tab 07/21/21 acetaminophen 650 mg/20.3 mL oral 650 mg PO TID PRN #609 ml 07/22/21 suspension amoxicillin 400 mg-potassium 10 ml PO BID #140 ml 07/23/21 clavulanate 57 mg/5 mL oral suspension Results & Data (ED) Vital Signs Vital Signs - 24 hr 08/05/21 04:26 08/05/21 04:29 08/05/21 04:53 Pulse Rate 121 H Pulse Rate [Apical] 121 H 117 H Pulse Rhythm Regular Pulse Rhythm [Apical] Regular Regular Pulse Strength Normal Pulse Strength [Apical] Normal Normal Respiratory Rate 30 H 27 H 25 H Respiratory Effort / Characteristics Spontaneous Mechanically Ventilated Short of Breath Spontaneous Mechanically Ventilated Short of Breath Spontaneous Mechanically Ventilated Short of Breath Respiratory Depth Normal Normal Respiratory Pattern Tachypnea Tachypnea Tachypnea Blood Pressure 97/58 L Blood Pressure [Right Arm] 97/58 L 110/59 L Blood Pressure Mean 71 Blood Pressure Mean [Right Arm] 71 76 Blood Pressure Position Semi-fowlers Blood Pressure Position [Right Arm] Semi-fowlers Semi-fowlers Pulse Oximetry 96 96 98 Oxygen Delivery Method CPAP CPAP CPAP Fraction of Inspired Oxygen 100 100 100 SaO2/FiO2 Ratio 96 98 Sepsis Recent Fever Within 48 Hours No Sepsis New/Unexplained Change in Mental Status No Sepsis Action Taken by Nursing Physician Notified 08/05/21 04:55 08/05/21 05:00 08/05/21 05:30 Pulse Rate 121 H Pulse Rate [Apical] 115 H 119 H Pulse Rhythm Pulse Rhythm [Apical] Regular Regular Pulse Strength Pulse Strength [Apical] Normal Normal Respiratory Rate 30 H 25 H 26 H Respiratory Effort / Characteristics Non-Labored Spontaneous Mechanically Ventilated Short of Breath Mechanically Ventilated Short of Breath Respiratory Depth Normal Normal Normal Respiratory Pattern Regular Tachypnea Tachypnea Blood Pressure Blood Pressure [Right Arm] 97/62 L 100/68 Blood Pressure Mean Blood Pressure Mean [Right Arm] 73 78 Blood Pressure Position Blood Pressure Position [Right Arm] Semi-fowlers Semi-fowlers Pulse Oximetry 93 98 96 Oxygen Delivery Method CPAP CPAP Fraction of Inspired Oxygen 100 100 100 SaO2/FiO2 Ratio 98 96 Sepsis Recent Fever Within 48 Hours Sepsis New/Unexplained Change in Mental Status Sepsis Action Taken by Nursing 08/05/21 06:00 08/05/21 06:30 08/05/21 07:00 Pulse Rate Pulse Rate [Apical] 123 H 116 H 116 H Pulse Rhythm Pulse Rhythm [Apical] Regular Regular Pulse Strength Pulse Strength [Apical] Normal Normal Respiratory Rate 27 H 28 H 26 H Respiratory Effort / Characteristics Spontaneous Mechanically Ventilated Short of Breath Mechanically Ventilated Short of Breath Respiratory Depth Normal Normal Normal Respiratory Pattern Tachypnea Tachypnea Tachypnea Blood Pressure Blood Pressure [Right Arm] 134/90 117/66 117/65 Blood Pressure Mean Blood Pressure Mean [Right Arm] 104 83 82 Blood Pressure Position Blood Pressure Position [Right Arm] Semi-fowlers Semi-fowlers Pulse Oximetry 94 96 99 Oxygen Delivery Method CPAP CPAP CPAP Fraction of Inspired Oxygen 100 100 100 SaO2/FiO2 Ratio 94 96 99 Sepsis Recent Fever Within 48 Hours Sepsis New/Unexplained Change in Mental Status Sepsis Action Taken by Nursing Laboratory Data Lab Results 08/05/21 Range/Units 05:33 SARS-CoV-2, RNA, NAAT NEGATIVE (NEGATIVE) Administered Medications Discontinued Medications Morphine Sulfate (Morphine Sulfate 4 Mg/Ml 1 Ml Carp\\Vial) 4 mg IV NOW STA Stop: 08/05/21 04:18 Last Admin: 08/05/21 04:49 Dose: 4 mg Documented by: [id number] Discharge Plan Visit Data Chief Complaint: Respiratory Distress Stated Complaint: BREATHING DIFF/CPAP ED Provider: Vahe Orellana Discharge Problem: Lung cancer, End of life care, Pleural effusion on left, Respiratory failure, Cancer related pain Forms Stand Alone Forms: My [facility] [employer] Prescriptions Prescriptions: No Action mirtazapine 45 mg tablet 45 mg feeding tube HS Qty: 90 RF: 3 losartan 25 mg tablet 25 mg feeding tube DAILY Qty: 90 RF: 3 ferrous sulfate 220 mg (44 mg iron)/5 mL elixir 220 mg feeding tube DAILY Qty: 473 RF: 2 fentanyl 75 mcg/hr patch 72 hour 1 patch transdermal Q72H RF: 0 bisacodyl 10 mg suppository [address] DAILY PRNRF: 0 gabapentin 300 mg capsule 300 mg Feeding Tube BID RF: 0 guaifenesin 200 mg tablet 200 mg PO BID RF: 0 lorazepam 2 mg/mL concentrate 1 mg PO Q4H PRNRF: 0 morphine concentrate 100 mg/5 mL (20 mg/mL) solution 10 mg PO Q2H RF: 0 prednisone 10 mg tablet 15 mg feeding tube DAILY Qty: 30 RF: 0 Mucinex Fast-Max Itib-Dfh-Uayp 10-20-650 mg/20 mL liquid 15 ml feeding tube DAILY Qty: 473 RF: 2 acetaminophen 650 mg/20.3 mL suspension 650 mg PO TID PRN (Reason: pain) Qty: 609 RF: 3 amoxicillin-pot clavulanate 400-57 mg/5 mL suspension for reconstitution 10 ml PO BID Qty: 140 RF: 0 levothyroxine 137 mcg capsule 137 mcg feeding tube DAILY RF: 0 ipratropium-albuterol 0.5 mg-3 mg(2.5 mg base)/3 mL solution for nebulization 3 ml INHALATION Q4H PRN (Reason: Shortness Of Breath) RF: 0 Nutren 2.0 0.08 gram-2 kcal/mL liquid 2 ea Feeding Tube BID RF: 0 loratadine 10 mg tablet 10 mg Feeding Tube DAILY PRN (Reason: Allergic Reaction) RF: 0 potassium chloride 10 mEq tablet extended release 10 meq PO DAILY RF: 0 Benefiber Sugar Free (dextrin) 3 gram/3.8 gram Powder 3 g PO BID RF: 0 buspirone 10 mg tablet 10 mg feeding tube BID RF: 0 (DME) Oxygen Home Liters Per Minute See Rx Instructions .ROUTE .MEDSUPPLY Qty: 1 RF: 0 Referrals Referrals: Chapito Milner DO [Primary Care Provider] - Discharge Problem: Lung cancer Qualifiers: Laterality: unspecified laterality Lung location: overlapping sites Qualified Code(s): C34.80 - Malignant neoplasm of overlapping sites of unspecified bronchus and lung Respiratory failure Qualifiers: Chronicity: acute on chronic Respiratory failure complication: hypoxia Qualified Code(s): J96.21 - Acute and chronic respiratory failure with hypoxia
--- NOTE | 2021-08-05 06:43 | History & Physical Report ---
Date of Service August 05, 2021 Assessment & Plan (1) Acute and chronic respiratory failure with hypoxia: Plan: 71yo male with multiple medical comorbidities, on home hospice care for end stage lung cancer presenting with acute on chronic hypoxic respiratory failure. Patient with saturations in the 40's at home. Placed on CPAP prior to arrival. Now on CPAP 12 cm H20 with adequate oxygenation. CXR with opacification of left lung. -Admit to medical -Continue comfort measures only -Morphine PRN pain or air hunger -Ativan PRN anxiety -Glycopyrrolate PRN secretion management -Zofran PRN nausea -Will continue Fentanyl TD -Continue Buspirone 10mg BID as may assist with end of life anxiety -Continue Gapapentin 300mg BID -Continue Remeron 45mg qHS - wishes to maintain CPAP for now until son can arrive (2) End of life care: Plan: As above. Comfort measures only. Will continue home medications Fentanyl, Buspirone, Gabapentin and Remeron to assist with symptom management and avoid withdrawal symptoms. 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 Patient is presently living at home with his and is on home hospice. is at bedside and provides history as patient is unresponsive. She reports patient has had intermittent fever over the last several days as well as confusion and somnolence. He was unable to help with his medications this evening as he usually does. He had a feeding last night around 23:30 which he tolerated. was sleeping on the loveseat in his room when he woke up around 03:00 to use the bathroom. He slid onto the floor and was unresponsive. His checked his pulse ox and found it to be in the 40's. She called hospice nursing and they stated that they would not be able to get to the home for at least 1 hour. Patient therefore called 911. No additional complaints. The wish is to carry forth with comfort measures only in the hospital. is at bedside. She is going to call the son who lives in [place] to be here. No additional complaints ER Course: CPAP placed prior to arrival Allergies Allergy/AdvReac Type Severity Reaction Status Date / Time NSAIDS (Non-Steroidal AdvReac Mild upset Verified 07/17/21 11:49 Anti-Inflamma stomach Home Medications Medication Instructions Recorded Confirmed Type levothyroxine 137 mcg capsule 137 mcg FEEDING TUBE DAILY 05/19/19 07/17/21 History ipratropium 0.5 mg-albuterol 3 mg 3 ml INHALATION Q4H PRN ml 01/15/20 07/17/21 History (2.5 mg base)/3 mL nebulization soln nutritional supplements 0.08 2 ea FEEDING TUBE BID 03/27/20 07/17/21 History gram-2 kcal/mL liquid for tube feed (Nutren 2.0) loratadine 10 mg tablet 10 mg FEEDING TUBE DAILY PRN 05/28/20 07/17/21 History mirtazapine 45 mg tablet 45 mg FEEDING TUBE HS #90 tab 11/28/20 07/17/21 Rx losartan 25 mg tablet 25 mg FEEDING TUBE DAILY #90 tab 01/27/21 07/17/21 Rx potassium chloride 10 mEq 10 meq PO DAILY 03/28/21 07/17/21 History tablet,extended release ferrous sulfate 220 mg (44 mg 220 mg FEEDING TUBE DAILY #473 ml 06/25/21 07/17/21 Rx iron)/5 mL oral elixir buspirone 10 mg tablet 10 mg FEEDING TUBE BID 07/06/21 07/17/21 History wheat dextrin 3 gram/3.8 gram oral 3 g PO BID 07/06/21 07/17/21 History powder (Benefiber Sugar Free (dextrin)) Oxygen Home #1 ea 07/10/21 07/17/21 Rx fentanyl 75 mcg/hr transdermal 1 patch TRANSDERMAL Q72H 07/16/21 07/17/21 Histor y patch bisacodyl 10 mg rectal suppository 10 mg [place] DAILY PRN 07/17/21 History gabapentin 300 mg capsule 300 mg FEEDING TUBE BID cap 07/17/21 07/17/21 History guaifenesin 200 mg tablet 200 mg PO BID 07/17/21 07/17/21 History lorazepam 2 mg/mL oral concentrate 1 mg PO Q4H PRN ml 07/17/21 07/17/21 History morphine concentrate 100 mg/5 mL 10 mg PO Q2H ml 07/17/21 07/17/21 History (20 mg/mL) oral solution Mucinex Fast-Max Nlxr-Okj-Uhdris 15 ml FEEDING TUBE DAILY #473 ml NS 07/21/21 Rx 10 mg-20 mg-650 mg/20 mL oral liquid (vqnzglsur-WI-mdrdqnyu-guaifen) prednisone 10 mg tablet 15 mg FEEDING TUBE DAILY #30 tab 07/21/21 Rx acetaminophen 650 mg/20.3 mL oral 650 mg PO TID PRN #609 ml 07/22/21 Rx suspension amoxicillin 400 mg-potassium 10 ml PO BID #140 ml 07/23/21 Rx clavulanate 57 mg/5 mL oral suspension Past Med/Surg History Medical History (Updated 07/19/21 @ 00:09 by Jamal Corona) Acute exacerbation of chronic obstructive airways disease Acute hypoxemic respiratory failure Anxiety Cancer of supraglottis "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 Radiation completed 02/28/2010 received 7200 cGy Finding of asymmetry of larynx on the right. 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 Radiation completed 02/28/2010 received 7200 cGy Finding of asymmetry of larynx on the right. Plan for laryngoscopy and biopsy 01/27/2017 " Cervical stenosis of spinal canal Chronic hypoxemic respiratory failure Chronic low back pain [facility]" COPD (chronic obstructive pulmonary disease) "is on home oxygen" GIB (gastrointestinal bleeding) Hypothyroidism Insomnia Lung cancer (10/04/17) Lung nodules Mass of lower lobe of left lung Multifocal pneumonia Oxygen dependent Palliative care encounter Presence of externally removable percutaneous endoscopic gastrostomy (PEG) tube (~2019) Radiation fibrosis of lung Surgical History H/O cervical spine surgery H/O neck surgery right side Percutaneous endoscopic gastrostomy status S/P lobectomy of lung Family History Other No pertinent family history Denies family history of Ovarian cancer Prostate cancer Breast cancer Lung cancer Colorectal cancer Social History Smoking Status: Former smoker Tobacco Type: Cigarettes Second Hand Exposure: No; Hx Alcohol Use: No Hx Substance Use: No Preferred Language: Pashto Communication Ability: Effective Visual Impairment: No Limitations Hearing Ability: Normal Farm Adviser Required: No Beliefs That Will Affect Care: None marital status: Single Current Living Situation: Significant Other Current Living Situation Comment: significant other is caregiver current occupational status: retired Feels Safe at Home: Yes caffeine: No Dental Care, Regularly: Yes Physical Activity Frequency: Does not Exercise Seatbelt Use: always Sunscreen Use: Yes Assistive Devices: Glasses Review of Systems Review of Systems: Unobtainable due to reduced consciousness Physical Exam Physical Exam: General: patient obtunded, appears in NAD Skin: warm, dry, intact, no rashes or lesions HEENT: NC/AT, PERRL, anicteric sclera, conjunctiva without injection, external ear normal to inspection and nontender, nares patent, moist mucus membranes, dentition intact, no oropharyngeal lesions, neck supple, trachea midline, no LAD, no thyromegaly, no JVD Heart: +S1/S2, regular, tachycardic, no m/r/g Lungs: diminished breath sounds bilateraly, no rales/rhonchi/wheezes Abd: +BS, soft, NT/ND, no masses/organomegaly/ascites Ext: warm, 2+ pulses in UE/LE bilaterally, no clubbing/cyanosis, 1+ edema of bilateral LE Neuro: patient obtunded, not following commands Results & Data Results & Data ([facility]) Vital Signs (Past 12 Hours) Vital Signs Pulse Pulse Resp BP BP Pulse Ox 08/05/21 06:00 123 H 27 H 134/90 94 08/05/21 05:30 119 H 26 H 100/68 96 08/05/21 05:00 115 H 25 H 97/62 L 98 08/05/21 04:55 121 H 30 H 93 08/05/21 04:53 117 H 25 H 110/59 L 98 08/05/21 04:29 121 H 27 H 97/58 L 96 08/05/21 04:26 121 H 30 H 97/58 L 96 Laboratory Results Laboratory Results SARS-CoV-2, RNA, NAAT NEGATIVE (NEGATIVE) 08/05/21 05:33 Diagnostic Findings CXR by my interpretation with complete opacification of left hemithorax. Airspace disease present in right lung Code Status & VTE Plan VTE Prophylaxis Plan VTE Prophylaxis will be ordered: No PG Care Time/CCT Total # of Minutes Spent Total Time Spent with Patient: Total time spent is greater than 50% in coordination of care (as documented) at patient's floor/unit and/or counseling patient: Coding Level of Care Code 97759 Initial Inpt Care Lvl 2 Diagnoses Acute and chronic respiratory failure with hypoxia J96.21 End of life care Z51.5
[2021-08-05 08:36] VITALS: BP 120/75
--- NOTE | 2021-08-05 08:46 | XRay Report ---
XR chest 1V portable HISTORY: shortness of breath COMPARISON: Chest 07/10/2028. FINDINGS: Interval development of complete opacification the left hemithorax with an abrupt cut off a t the left mainstem bronchus. There is left mediastinal shift. There is volume loss within the left h emithorax. No pneumothorax. Cervical spinal fusion hardware is again noted. Fibrotic change/chronic i nterstitial thickening again noted within the right lung. Emphysema. There is a 3.5 cm right upper lo be mass. There is also a new 2.4 cm nodule within the right midlung zone. IMPRESSION: 1. Complete opacification of the left hemithorax with abrupt cut off at the left mainstem bronchus an d left mediastinal shift. This favors complete collapse of the left lung could be due to an obstructi ng central lesion or mucous plugging. Bronchoscopy recommended for further evaluation. 2. Right lung pulmonary nodules/masses have progressed. 3. Emphysema. 4. This report was called/faxed to the emergency department following dictation. ACT 112: Negative or not required by law. Electronically signed by: Gonzalo Lima M.D. 08/05/2021 8:45 AM
[2021-08-05] MEDS ORDERED: MoRPHine SULFATE 2 MG/ML CARP IV PRN ×2 (08:51→11:37)
[2021-08-05] MEDS ORDERED: CHECK fentaNYL PATCH PLACEMENT SCH (08:51)
[2021-08-05] MEDS ORDERED: LORazepam 0.5 MG/1 ML VIAL IV PRN (08:51)
[2021-08-05] MEDS ORDERED: ONDANSETRON INJ 2 MG/ML 2 ML VIAL IV PRN (08:51)
[2021-08-05] MEDS ORDERED: GLYCOPYRROLATE 0.2 MG/ML VIAL IV PRN (08:51)
[2021-08-05] MEDS ORDERED: GABAPENTIN 300 MG CAP PO SCH (09:00)
[2021-08-05] MEDS ORDERED: busPIRone 5 MG TAB PEG SCH (09:00)
[2021-08-05 10:08] VITALS: PULSE 125; O2SAT 97
[2021-08-05] MEDS ORDERED: MoRPHine SULFATE 4 MG/ML 1 ML CARP\\VIAL ONE (11:36)
--- NOTE | 2021-08-05 12:17 | Death Pronouncement Note ---
Date of Service August 05, 2021 Pronouncement Note Admission Date Admission Date: August 05, 2021 Date and Time of Date of : 08/05/21 Time of : 12:02 PCOD Preliminary cause of : Acute respiratory failure with hypoxia Contributing Factors (1) Acute and chronic respiratory failure with hypoxia: (2) End of life care: Hospital Course Hospital Course: see discharge summary Additional Data Confirmation of : no pulse, no respirations, no heart sounds and pupils fixed and dilated Family: at bedside Attending physician: Kishan Katz, DO Was code activated?: No Autopsy requested?: No license examiner notified?: No Coding Level of Care Code None Diagnoses Acute and chronic respiratory failure with hypoxia J96.21 End of life care Z51.5
--- NOTE | 2021-08-05 12:20 | Discharge Summary ---
Date of Service August 05, 2021 Admission HPI Per Admitting Provider Luis Boss is a 71yo male with multiple medical conditions to include chronic hypoxic respiratory failure, radiation fibrosis, COPD, anxiety, end stage lung cancer. Patient is presently living at home with his and is on home hospice. is at bedside and provides history as patient is unresponsive. She reports patient has had intermittent fever over the last several days as well as confusion and somnolence. He was unable to help with his medications this evening as he usually does. He had a feeding last night around 23:30 which he tolerated. was sleeping on the loveseat in his room when he woke up around 03:00 to use the bathroom. He slid onto the floor and was unresponsive. His checked his pulse ox and found it to be in the 40's. She called hospice nursing and they stated that they would not be able to get to the home for at least 1 hour. Patient therefore called 911. No additional complaints. The wish is to carry forth with comfort measures only in the hospital. is at bedside. She is going to call the son who lives in [place] to be here. No additional complaints ER Course: CPAP placed prior to arrival Principal Diagnosis Acute on chronic hypoxic respiratory failure Discharge Exam no pulse, no respirations, unresponsive, pupils fixed Discharge Data Allergies Allergy/AdvReac Type Severity Reaction Status Date / Time NSAIDS (Non-Steroidal AdvReac Mild upset Verified 08/05/21 07:41 Anti-Inflamma stomach Consultations 08/05/21 05:27 ED Decision to Admit Stat 08/05/21 08:51 Consult Palliative Care Routine Hospital Course (1) Acute and chronic respiratory failure with hypoxia: 71yo male with multiple medical comorbidities, on home hospice care for end stage lung cancer presenting with acute on chronic hypoxic respiratory failure. Patient with saturations in the 40's at home. Placed on CPAP prior to arrival. Now on CPAP 12 cm H20 with adequate oxygenation. CXR with opacification of left lung. -Continue comfort measures only -Morphine PRN pain or air hunger -Ativan PRN anxiety -Glycopyrrolate PRN secretion management -Zofran PRN nausea -Will continue Fentanyl TD once family arrived, CPAP was removed, patient kept comfortable with Morphine he with his and son at the bedside, time of was 12:02 PM (2) End of life care: As above. Comfort measures only. Will continue home medications Fentanyl, Buspirone, Gabapentin and Remeron to assist with symptom management and avoid withdrawal symptoms. 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 Total Time Total Time Spent Total Time Spent (In Minutes): 20 Discharge Plan Discharge Items Reason For Visit: ACUTE HYPOXIC RESPIRATORY FAILURE,END OF LIFE CARE Follow-up/Referrals: Chapito Milner, [Primary Care Provider] - Medications and DC Order Prescriptions: No Action mirtazapine 45 mg tablet 45 mg feeding tube HS Qty: 90 RF: 3 fentanyl 75 mcg/hr patch 72 hour 1 patch transdermal Q72H RF: 0 bisacodyl 10 mg suppository 10 mg AL DAILY PRN (Reason: Constipation) RF: 0 gabapentin 300 mg capsule 300 mg Feeding Tube BID RF: 0 guaifenesin 200 mg tablet 200 mg PO BID RF: 0 morphine concentrate 100 mg/5 mL (20 mg/mL) solution 10 mg PO Q2H RF: 0 acetaminophen 650 mg/20.3 mL suspension 650 mg PO TID PRN (Reason: pain) Qty: 609 RF: 3 levothyroxine 137 mcg capsule 137 mcg feeding tube DAILYBB RF: 0 ipratropium-albuterol 0.5 mg-3 mg(2.5 mg base)/3 mL solution for nebulization 3 ml INHALATION Q4H PRN (Reason: Shortness Of Breath) RF: 0 Nutren 2.0 0.08 gram-2 kcal/mL liquid 2 ea Feeding Tube BID RF: 0 loratadine 10 mg tablet 10 mg Feeding Tube DAILY PRN (Reason: Allergic Reaction) RF: 0 potassium chloride 10 mEq tablet extended release 10 meq PO HS RF: 0 azithromycin 200 mg/5 mL suspension for reconstitution 250 mg feeding tube QAM RF: 0 lorazepam 1 mg/0.5 mL syringe 1 mg feeding tube Q4H PRN (Reason: Anxiety) RF: 0 losartan 25 mg tablet 25 mg feeding tube HS RF: 0 Mucinex Fast-Max Ggwq-Qtr-Rtno 10-20-650 mg/20 mL liquid 15 ml feeding tube BID RF: 0 ferrous sulfate 220 mg (44 mg iron)/5 mL elixir 220 mg feeding tube QAM RF: 0 prednisone 10 mg tablet 15 mg feeding tube QAM RF: 0 Benefiber Sugar Free (dextrin) 3 gram/3.8 gram Powder 3 g PO BID RF: 0 buspirone 10 mg tablet 10 mg feeding tube BID RF: 0 (DME) Oxygen Home Liters Per Minute See Rx Instructions .ROUTE .MEDSUPPLY Qty: 1 RF: 0 Admission Data Admit Date/Time: 08/05/21 06:29 Attending Provider: Kishan Katz Admit Provider: Amanda Masters Primary Care Provider: Chapito Milner Other Providers: Amanda Masters ; Barbi Chatman Coding Level of Care Code D/C DAY MANAGEMENT <30 MINS Diagnoses Acute and chronic respiratory failure with hypoxia J96.21 End of life care Z51.5
[2021-08-05] MEDS ORDERED: MIRTAZAPINE TAB 15 MG TAB GT SCH (21:00)
[2021-08-07] MEDS ORDERED: fentaNYL 75 MCG/HR TDSY TD SCH (21:00)
== END 2021-08-05 12:15 | disposition expired | DRG 189 ==
LOC: ED 04:04 → EDINP 06:29 → SUATTDRO 06:29